=== PATIENT | male | born 1955 | race African-American/Black ===

== ENCOUNTER 2016-05-03 18:05 | Inpatient (IN) | payer BC ==
[~2016-05-03] VITALS: Ht 172.7 cm; Wt 83.5 kg
[~2016-05-03 18:05] MED LIST: A & D OINT1 APPLI1 TOPIC; ACYCLOVIR400 MG ORAL; AMBIEN5 MG ORAL; ATROVENT HFA12.9 GM IH; CATAPRES0.1 MG ORAL; COLACE100 MG ORAL; COUMADIN10 MG ORAL; DAKIN'S473 ML TOPIC; DILAUDID1 MG/1 ML PO; DIPHENHYDR50 MG/1 M1 IJ; EMTRIVA200 MG ORAL; EPOGEN20000 UNI1 SUBQ; EPOGEN20000 UNIT SUBQ; FOSRENOL1000 MG PO; GENTAMICIN80 MG/100 IV; HECTOROL PO; HECTOROL0.5 MCG PO; HYDROMORPH1 MG/50 ML IVP; HYDROMORPHO1 MG/1 M4 IJ; IRON159 MG PO; LORAZEPAM1 MG ORAL; METOPROLOL SUCC25 MG ORAL; MINOXIDIL2.5 MG PO; MIRALAX17 G2 ORAL; NIFEDICAL XL60 MG ORAL; NOVOLOG100 UNITS1; OXYCODONE-ACET1 EAC5 ORAL; PERIDEX15 ML MM; PLAVIX75 MG ORAL; PREMARIN0.625 MG ORAL; RENAGEL800 MG ORAL; RENAL CAPS SOFTG1 MG PO; RENVELA0.8 GM ORAL; STARLIX120 MG ORAL; TOPROL XL25 MG ORAL; TYLENOL650 MG/20. ORAL; VANCOMYCIN1 GM/2502 IVPB; VIRACEPT250 MG ORAL; VIRACEPT625 MG PO; VIREAD300 MG ORAL; VITAMIN D250000 UNI1 ORAL; ZANTAC150 MG ORAL; ZOFRAN 4 MG4 MG/2 ML IV; ZOSYN 3.373.375 GM/1 IVPB; [UNRECOGNIZED DRUG - OTHER] TOPIC
[2016-05-03 18:26] VITALS: BP 182/68
[2016-05-03 20:00] VITALS: BP 156/74
[2016-05-03] MEDS ORDERED: Emtricitabine 200mg tab ORAL SCH (20:45)
[2016-05-03] MEDS ORDERED: Acetaminophen 650mg/20.3ml ORAL PRN (20:45)
[2016-05-03] MEDS ORDERED: LORazepam 1mg tab ORAL PRN (20:45)
[2016-05-03] MEDS ORDERED: Miralax 17gm pkt ORAL PRN (20:45)
[2016-05-03] MEDS: HYDROmorphone 1mg/ml Carpuject IVP PRN (20:56)
[2016-05-03 23:56] VITALS: BP 161/58
[2016-05-04] MEDS: DiphenhydrAMINE 50mg/ml Inj IV SCH ×5 (00:16→23:49)
[2016-05-04] MEDS: HYDROmorphone 1mg/ml Carpuject IVP PRN ×5 (01:06→20:24)
[2016-05-04 04:00] VITALS: BP 142/60
[2016-05-04 08:00] VITALS: BP 173/75
[2016-05-04 08:41] LABS: BASOPHILS % (AUTO) 1.4 % (0.0-2.0); EOSINOPHILS % (AUTO) 9.1 % (0.0-3.0); LYMPHOCYTES % (AUTO) 43.4 % (20.0-45.0); MEAN CORPUSCULAR HEMOGLOBIN 31.2 PG (27.0-31.0); MEAN CORPUSCULAR HGB CONC 31.2 G/DL (32.0-36.0); MEAN CORPUSCULAR VOLUME 100 FL (80-99); MEAN PLATELET VOLUME 9.1 FL (6.5-10.1); MONOCYTES % (AUTO) 18.1 % (1.0-10.0); PLATELET COUNT 182 K/UL (150-450); RED BLOOD COUNT 3.28 M/UL (4.70-6.10); RED CELL DISTRIBUTION WIDTH 17.2 % (11.6-14.8); WHITE BLOOD COUNT 4.9 K/UL (4.8-10.8)
[2016-05-04 08:52] LABS: PROTHROMBIN TIME 10.5 SEC (9.30-11.50)
[2016-05-04 08:58] LABS: ALBUMIN/GLOBULIN RATIO 0.7 (1.0-2.7); CALCIUM 9.7 mg/dL (8.6-10.2); CREATININE 7.2 mg/dL (0.7-1.2); GLOMERULAR FILTRATION RATE 9.5 mL/min (>60); POTASSIUM 5.2 mEQ/L (3.4-4.9); TOTAL PROTEIN 7.6 g/dL (6.6-8.7)
[2016-05-04] MEDS ORDERED: Warfarin Sodium 10mg ORAL SCH (09:00)
[2016-05-04] MEDS: Lanthanum 1000mg tab ORAL SCH ×3 (09:00→17:43)
[2016-05-04] MEDS: Docusate 100mg cap ORAL SCH ×2 (10:08→17:42)
[2016-05-04] MEDS: VIRACEPT ORAL SCH ×2 (10:09→17:43)
[2016-05-04] MEDS: Renvela 2400 mg pkt ORAL SCH ×3 (10:09→12:13)
[2016-05-04] MEDS: Renvela 800mg Pkt ORAL SCH ×3 (10:40→17:42)
[2016-05-04 12:00] VITALS: BP 125/67
[2016-05-04] MEDS: Vitamin A&D Oint 2oz Tube TOPIC SCH ×2 (12:08→20:25)
[2016-05-04] MEDS ORDERED: 1/2 NS 1000ml IV ONE (15:20)
--- NOTE | 2016-05-04 15:52 | Podiatric Progress Note ---
Assessment/Plan Patient Lloyd Grigsby is a 60 year old male who was admitted on May 03, 2016 at 18:30 with Problems: Assessment/Plan A/ 1) Osteomyelitis left foot and right 2nd toe 2) Nonpressure ulcer right 2nd toe to level of bone 3) Nonpressure ulcer left foot (surgical) to level of muscle 4) Severe PVD - s/p intervention bilateral 5) DM 6) ESRD 7) Amputated toes left foot 8) Nonpressure ulcer submet head 5th right foot to subq P/ 1) Cont IV abx per ID 2) Scheduled for right 2nd toe amp Saturday at 2:30pm 3) Wound Nurse consulted for MWF VAC dressing changes to left foot 4) Cont heel protectors 5) Strict glycemic control for optimal wound healing 6) D/W nursing and D/W . will sign consent when she arrives. Subjective Allergies: Coded Allergies: HEPARIN (Verified Allergy, Severe, low platelets, 06/11/14) SULFA (SULFONAMIDE ANTIBIOTICS) (Verified Allergy, Severe, nephro toxic, ) ZOLPIDEM (Verified Allergy, Unknown, 05/03/16) MEROPENEM (Verified Adverse Reaction, Intermediate, 04/01/16) Nausea and vomiting Uncoded Allergies: pork products (Allergy, Severe, rashes, 06/11/14) Subjective Patient is comfortable, in NAD Objective Exam Last 24 Hour Vital Signs Date Time Temp Pulse Resp B/P Pulse Ox O2 Delivery O2 Flow Rate FiO2 05/04/16 12:38 97.2 05/04/16 12:00 96.4 85 18 125/67 96 Nasal Cannula 2.0 05/04/16 09:00 72 173/75 05/04/16 09:00 72 173/75 05/04/16 08:00 97.2 72 20 173/75 100 Nasal Cannula 2.0 05/04/16 04:00 97.8 74 18 142/60 94 Room Air 05/03/16 23:56 97.9 76 18 161/58 95 Room Air 05/03/16 23:02 71 156/74 05/03/16 20:00 98.2 71 23 156/74 99 Room Air 05/03/16 18:28 89 18 180/68 99 Room Air 05/03/16 18:26 98.6 99 18 182/68 100 2.0 05/03/16 18:06 98.6 76 18 182/68 100 2.0 Laboratory Tests Test 05/04/16 05:46 White Blood Count 4.9 K/UL (4.8-10.8) Red Blood Count 3.28 M/UL (4.70-6.10) L Hemoglobin 10.3 G/DL (14.2-18.0) L Hematocrit 32.9 % (42.0-52.0) L Mean Corpuscular Volume 100 FL (80-99) H Mean Corpuscular Hemoglobin 31.2 PG (27.0-31.0) H Mean Corpuscular Hemoglobin Concent 31.2 G/DL (32.0-36.0) L Red Cell Distribution Width 17.2 % (11.6-14.8) H Platelet Count 182 K/UL (150-450) Mean Platelet Volume 9.1 FL (6.5-10.1) Neutrophils (%) (Auto) 28.0 % (45.0-75.0) L Lymphocytes (%) (Auto) 43.4 % (20.0-45.0) Monocytes (%) (Auto) 18.1 % (1.0-10.0) H Eosinophils (%) (Auto) 9.1 % (0.0-3.0) H Basophils (%) (Auto) 1.4 % (0.0-2.0) Prothrombin Time 10.5 SEC (9.30-11.50) Prothromb Time International Ratio 1.0 (0.9-1.1) Activated Partial Thromboplast Time 27 SEC (23-33) Sodium Level 141 mEQ/L (135-145) Potassium Level 5.2 mEQ/L (3.4-4.9) H Chloride Level 97 mEQ/L (98-107) L Carbon Dioxide Level 26 mEQ/L (20-30) Anion Gap 18 (5-15) H Blood Urea Nitrogen 59 mg/dL (7-23) H Creatinine 7.2 mg/dL (0.7-1.2) H Estimat Glomerular Filtration Rate 9.5 mL/min (>60) Glucose Level 61 mg/dL (74-106) L Calcium Level 9.7 mg/dL (8.6-10.2) Total Bilirubin 0.7 mg/dL (0.0-1.2) Aspartate Amino Transf (AST/SGOT) 27 U/L (5-40) Alanine Aminotransferase (ALT/SGPT) 17 U/L (3-41) Alkaline Phosphatase 117 U/L (40-129) Total Protein 7.6 g/dL (6.6-8.7) Albumin 3.3 g/dL (3.5-5.2) L Globulin 4.3 g/dL Albumin/Globulin Ratio 0.7 (1.0-2.7) L Vascular Pulses: 2 dorsalis pedis (L), 2 dorsalis pedis (R), 2 posterior tibial (L), 2 posterior tibial (R) Dermatological Dermatological Narrative Left foot - wound bed granular, no necrosis, no signs of acute bacterial infection. Wound size appears to have decreased from previous admission Right foot Submet 5th - healing, superficial no signs of acute bacterial infection Dorsal 2nd toe - DIPJ nearly exposed, no signs of acute infection. Toe is bulbous Victor Hugo Blackburn DPM May 04, 2016 15:52
--- NOTE | 2016-05-04 15:56 | General Progress Note ---
Assessment/Plan Problem List: (1) ESRD (end stage renal disease) ICD Codes: N18.6 - End stage renal disease SNOMED: 08830574 (2) Sepsis ICD Codes: A41.9 - Sepsis, unspecified organism SNOMED: 49965311 (3) Anemia ICD Codes: D64.9 - Anemia, unspecified SNOMED: 509623936 (4) HIV disease ICD Codes: B20 - Human immunodeficiency virus [HIV] disease SNOMED: 05220412 (5) Pain ICD Codes: R52 - Pain, unspecified SNOMED: 88439303 (6) Vascular disease ICD Codes: I99.9 - Unspecified disorder of circulatory system SNOMED: 36119544 Status: progressing Assessment/Plan per vascular he needs right toe amputation abx per id pvd angiogram done by dr garcia afebrile reviwed chart and labs Subjective ROS Limited/Unobtainable: Yes Allergies: Coded Allergies: HEPARIN (Verified Allergy, Severe, low platelets, 06/11/14) SULFA (SULFONAMIDE ANTIBIOTICS) (Verified Allergy, Severe, nephro toxic, ) ZOLPIDEM (Verified Allergy, Unknown, 05/03/16) MEROPENEM (Verified Adverse Reaction, Intermediate, 04/01/16) Nausea and vomiting Uncoded Allergies: pork products (Allergy, Severe, rashes, 06/11/14) Objective Last 24 Hour Vital Signs Date Time Temp Pulse Resp B/P Pulse Ox O2 Delivery O2 Flow Rate FiO2 05/04/16 12:38 97.2 05/04/16 12:00 96.4 85 18 125/67 96 Nasal Cannula 2.0 05/04/16 09:00 72 173/75 05/04/16 09:00 72 173/75 05/04/16 08:00 97.2 72 20 173/75 100 Nasal Cannula 2.0 05/04/16 04:00 97.8 74 18 142/60 94 Room Air 05/03/16 23:56 97.9 76 18 161/58 95 Room Air 05/03/16 23:02 71 156/74 05/03/16 20:00 98.2 71 23 156/74 99 Room Air 05/03/16 18:28 89 18 180/68 99 Room Air 05/03/16 18:26 98.6 99 18 182/68 100 2.0 05/03/16 18:06 98.6 76 18 182/68 100 2.0 Intake and Output 05/03/16 05/04/16 19:00 07:00 Intake Total 0 ml 450 ml Balance 0 ml 450 ml Intake Oral 0 ml IV Total 450 ml Laboratory Tests 05/04/16 05:46: White Blood Count 4.9, Red Blood Count 3.28L, Hemoglobin 10.3L, Hematocrit 32.9L , Mean Corpuscular Volume 100H, Mean Corpuscular Hemoglobin 31.2H, Mean Corpuscular Hemoglobin Concent 31.2L, Red Cell Distribution Width 17.2H, Platelet Count 182, Mean Platelet Volume 9.1, Neutrophils (%) (Auto) 28.0L, Lymphocytes (%) (Auto) 43.4, Monocytes (%) (Auto) 18.1H, Eosinophils (%) (Auto) 9.1H, Basophils (%) (Auto) 1.4, Prothrombin Time 10.5, Prothromb Time International Ratio 1.0, Activated Partial Thromboplast Time 27, Sodium Level 141, Potassium Level 5.2H, Chloride Level 97L, Carbon Dioxide Level 26, Anion Gap 18H, Blood Urea Nitrogen 59H, Creatinine 7.2H, Estimat Glomerular Filtration Rate 9.5, Glucose Level 61L, Calcium Level 9.7, Total Bilirubin 0.7, Aspartate Amino Transf (AST/SGOT) 27, Alanine Aminotransferase (ALT/SGPT) 17, Alkaline Phosphatase 117, Total Protein 7.6, Albumin 3.3L, Globulin 4.3, Albumin /Globulin Ratio 0.7L Height (Feet): 5 Height (Inches): 8.00 Weight (Pounds): 184 Respiratory/Chest: lungs clear Abdomen: soft Sergei Hernández MD May 04, 2016 15:55
[2016-05-04 16:00] VITALS: BP 188/87
--- NOTE | 2016-05-04 16:23 | General Progress Note ---
Progress Note Progress Note [id number] full note dictated LB SON May 04, 2016 16:23
--- NOTE | 2016-05-04 19:58 | Wound Care Consultation ---
Wound Assessment Wound Assessment #1: Wound Present on Admission: Yes New Wound: No Status Change of Wound: No Wound Location Body Site Modif: mid Wound Location Body Site: sacral Wound Type: pressure ulcer Alexandra Test: Does not Alexandra Pressure Ulcer Stage: II Wound Thickness: Full Thickness Wound Length: 1.0 Wound Width: 1.0 Wound Depth: 0.1 Percent of Wound Theodore/Red: 100 Wound Drainage Amount: None Wound Drainage Odor: None/Absent Tissue Surrounding Wound: Macerated Wound General Appearance: Reddened, Well Approximated Wound Assessment #2: Wound Number: #2 Wound Present on Admission: Yes New Wound: No Status Change of Wound: No Wound Location Body Site Modif: left, lateral Wound Location Body Site: foot Wound Type: vascular issue w/vascular changes Alexandra Test: Does not Alexandra Wound Thickness: Full Thickness Wound Length: 7.5 Wound Width: 4.0 Wound Depth: 0.3 Percent of Wound Theodore/Red: 100 Wound Drainage Amount: Moderate Wound Drainage Odor: None/Absent Tissue Surrounding Wound: Macerated Wound General Appearance: Reddened, Well Approximated, Draining Wound Assessment #3: Wound Number: #3 Wound Present on Admission: Yes New Wound: No Status Change of Wound: No Wound Location Body Site Modif: right, anterior Wound Location Body Site: toe - 2nd Wound Type: vascular issue w/vascular changes Alexandra Test: Does not Alexandra Wound Thickness: Full Thickness Wound Length: 1.5 Wound Width: 1.0 Wound Depth: utd Percent of Wound Black/Brown: 100 Wound Drainage Amount: None Wound Drainage Odor: None/Absent Tissue Surrounding Wound: Indurated Wound General Appearance: Asymptomatic, Blackened Wound Assessment #4: Wound Number: #4 Wound Present on Admission: Yes New Wound: No Status Change of Wound: No Wound Location Body Site Modif: right, lateral Wound Location Body Site: metatarsal head - 5th Wound Type: vascular issue w/vascular changes Alexandra Test: Does not Alexandra Wound Thickness: Full Thickness Wound Length: 2.0 Wound Width: 1.5 Wound Depth: utd Percent of Wound Black/Brown: 100 Wound Drainage Amount: None Wound Drainage Odor: None/Absent Tissue Surrounding Wound: Intact Wound General Appearance: Asymptomatic, Well Approximated Wound Assessment #5: Wound Number: #5 Wound Present on Admission: Yes New Wound: No Status Change of Wound: No Wound Location Body Site Modif: right, lateral Wound Location Body Site: toe - 5th Wound Type: vascular issue w/vascular changes Alexandra Test: Does not Alexandra Wound Thickness: Full Thickness Wound Length: 1.5 Wound Width: 1.5 Wound Depth: utd Percent of Wound Black/Brown: 100 Wound Drainage Amount: None Wound Drainage Odor: None/Absent Tissue Surrounding Wound: Intact Wound General Appearance: Asymptomatic, Well Approximated Wound Comment #1 Sacral stage II pressure ulcer #2 S/p amputation of left foot with wound vac #3 Right 2nd toe DTI with dry scab #4 Right 5th metatarsal head DTI #5 Right lateral 5th toe DTI with dry scab Pt with Dx of sever PVD, DM, ESRD. H/O amputation of left toes and lateral foot. Recommendation -Local wound care as ordered by Dr Blackburn -Wound vac drg harris by wound care nurse every MWF as ordered by Dr Blackburn -Sacral stage 2 cleanse with saline, pat dry, apply Triad cream and cover with dry drg daily and PRN soiled/dislodged -Keep clean and dry -Turn and reposition -optimize nutrition -Offload both heels -Assess and f/u accordingly for any changes SCOOBY UP RN May 04, 2016 19:58
[2016-05-04 20:00] VITALS: BP 141/75
[2016-05-05] VITALS: BP 148/78
[2016-05-05] MEDS: HYDROmorphone 1mg/ml Carpuject IVP PRN ×4 (00:33→18:48)
--- NOTE | 2016-05-05 03:57 | Consultation ---
DATE OF CONSULTATION: 05/04/2016 NEPHROLOGY CONSULTATION CONSULTING PHYSICIAN: Janis Olivo M.D. REFERRING PHYSICIAN: Sergei Hernández M.D. REASON FOR CONSULTATION: End-stage renal disease renal, need for dialysis. HISTORY OF PRESENT ILLNESS: The patient is an unfortunate 60-year-old male with past medical history significant for history of human immunodeficiency virus, end-stage renal disease, anemia of chronic kidney disease, renal osteodystrophy, history of peripheral vascular disease, history of multiple admissions for revascularization, and also left lower extremity wound. He apparently was transferred to [facility] for revascularization of the left lower extremity, which was done successfully. Consequently, the patient was transferred to [facility] for continuation of intravenous antibiotics, amputation, wound debridement, incision and drainage, required dialysis, and need for care for his end-stage renal disease. I was called for management of renal disease and electrolyte imbalance. PAST MEDICAL HISTORY: Includin. Diabetes. 2. Hypertension. 3. HIV. 4. End-stage renal disease. 5. Anemia of chronic kidney disease. 6. Renal osteodystrophy. 7. Peripheral vascular disease. 8. Left wound and partial amputation. 9. Hemorrhagic telangiectasia. 10. History of revascularization. 11. History of AV fistula placement. MEDICATIONS: Reviewed. ALLERGIES: He is allergic to heparin, sulfa, and pork. SOCIAL HISTORY: He lives at home with , but apparently the patient has had multiple hospital admissions in the last couple of months for the left lower extremity osteomyelitis. REVIEW OF SYSTEMS: General: He is complaining of generalized weakness. Denied any fever, chills, or night sweats. HEAD AND NECK: Denies any dysphagia, odynophagia, blurry vision, headache, or neck stiffness. PULMONARY: No shortness of breath. No cough or sputum at this time. CARDIOVASCULAR: Denies any chest pain or palpitations. GASTROINTESTINAL: Denies any nausea or vomiting. GENITOURINARY: Denies any dysuria, frequency, or hematuria. MUSCULOSKELETAL: He complained of generalized weakness. Otherwise negative. PHYSICAL EXAM: VITAL SIGNS: Temperature of 97 degrees, blood pressure 161/58, pulse rate of 76, and respiratory rate of 18. HEAD AND NECK: No JVP. No LAD. No thyromegaly. Extraocular movement intact. Pupils are reactive to light and accommodation. LUNGS: Decreased breathing sound on the both sides. CARDIAC: Regular rate and rhythm. S1 and S2. No murmur. No rub. ABDOMEN: Soft, nontender, and nondistended. EXTREMITIES: Has left lower extremity ulceration, which at this time is on the right toe, which is under dressing. ASSESSMENT: 1. Non-pressure ulcer of the right second toe. 2. Hypertension. 3. End-stage renal disease. 4. Anemia of chronic kidney disease. 5. Renal osteodystrophy. 6. Diabetes. 7. Dyslipidemia. PLAN: 1. Plan for the patient to continue the dialysis based on the schedule and we will start the patient on Epogen for anemia of chronic kidney disease. 2. Check the calcium, phosphorous, and PTH for evaluation of renal osteodystrophy. 3. IV antibiotic. 4. Follow up with Podiatry for possible wound debridement and amputation. 5. Monitoring electrolytes closely. Again, I would like to thank Dr. Louis Barahona for allowing me to participate in the care of this patient. Janis Olivo M.D. DR: JAG JOB#: [id number] CC:
[2016-05-05 04:00] VITALS: BP 154/65
[2016-05-05] MEDS: DiphenhydrAMINE 50mg/ml Inj IV SCH ×3 (06:00→18:00)
[2016-05-05] MEDS: VIRACEPT ORAL SCH ×2 (08:10→18:32)
[2016-05-05] MEDS: Renvela 2400 mg pkt ORAL SCH ×3 (08:11→18:30)
[2016-05-05] MEDS: Renvela 800mg Pkt ORAL SCH ×3 (08:11→18:30)
[2016-05-05] MEDS: Lanthanum 1000mg tab ORAL SCH ×3 (08:11→18:31)
[2016-05-05] MEDS: Docusate 100mg cap ORAL SCH ×2 (08:11→18:30)
[2016-05-05] MEDS: Vitamin A&D Oint 2oz Tube TOPIC SCH ×2 (08:12→22:17)
[2016-05-05 08:27] VITALS: BP 144/57
[2016-05-05 11:15] VITALS: BP 137/73
--- NOTE | 2016-05-05 12:25 | General Progress Note ---
Assessment/Plan Problem List: (1) ESRD (end stage renal disease) ICD Codes: N18.6 - End stage renal disease SNOMED: 83411248 (2) Sepsis ICD Codes: A41.9 - Sepsis, unspecified organism SNOMED: 37234475 (3) Anemia ICD Codes: D64.9 - Anemia, unspecified SNOMED: 972821059 (4) HIV disease ICD Codes: B20 - Human immunodeficiency virus [HIV] disease SNOMED: 92263020 (5) Pain ICD Codes: R52 - Pain, unspecified SNOMED: 03132290 (6) Vascular disease ICD Codes: I99.9 - Unspecified disorder of circulatory system SNOMED: 24143837 Assessment/Plan toe amputation per certified phlebotomy technician afebrile vitals stable no acute events pvd no fever Subjective ROS Limited/Unobtainable: Yes Constitutional: Reports: no symptoms Allergies: Coded Allergies: HEPARIN (Verified Allergy, Severe, low platelets, 06/11/14) SULFA (SULFONAMIDE ANTIBIOTICS) (Verified Allergy, Severe, nephro toxic, ) ZOLPIDEM (Verified Allergy, Unknown, 05/03/16) MEROPENEM (Verified Adverse Reaction, Intermediate, 04/01/16) Nausea and vomiting Uncoded Allergies: pork products (Allergy, Severe, rashes, 06/11/14) Objective Last 24 Hour Vital Signs Date Time Temp Pulse Resp B/P Pulse Ox O2 Delivery O2 Flow Rate FiO2 05/05/16 11:15 Nasal Cannula 2.0 05/05/16 11:15 98.0 79 18 137/73 96 Nasal Cannula 2.0 05/05/16 08:27 98.2 72 20 144/57 97 Nasal Cannula 2.0 05/05/16 08:10 Nasal Cannula 2.0 05/05/16 04:00 97.3 69 18 154/65 94 Room Air 05/05/16 00:00 98.2 82 18 148/78 98 Room Air 05/04/16 20:00 98.4 74 19 141/75 96 Room Air 05/04/16 16:00 98.8 78 19 188/87 98 Room Air 05/04/16 12:38 97.2 Intake and Output 05/04/16 05/05/16 19:00 07:00 Intake Total 500 ml 1310 ml Balance 500 ml 1310 ml Intake Oral 760 ml IV Total 500 ml 550 ml Height (Feet): 5 Height (Inches): 8.00 Weight (Pounds): 184 EENT: PERRL/EOMI Respiratory/Chest: lungs clear Abdomen: soft Sergei Hernández MD May 05, 2016 12:24
--- NOTE | 2016-05-05 13:01 | Infectious Diseases Prog Note ---
Assessment/Plan Assessment/Plan HPI - patient well known to me, asked to f/u for abx mgt. Patient transferred from outside facility in which he had left leg revascularization and line access. ASSESSMENT AND PLAN: 1. esbl e.coli/likely polymicrobial left foot wound infection with osteomyelitis and right foot 2nd toe osteo/wound - s/p debridement of left foot , s/p left leg revascularization - zosyn and vancomycin for another 16 day (total 6 week abx course) - watch labs and sed rate - wound culture of left foot and right food 2nd toe at [facility] were negative - may need further debridement and amputation per podiatry and surgery - patient with line access - ? mid line vs picc line, per nursing it is a picc line 2. Wound care per podiatry and surgery 3. End-stage renal disease on hemodialysis, treatment per Renal. 4. Diabetes. 5. Hypertension. 6. Blood sugar and blood pressure control per primary. 7. Human immunodeficiency virus. 8. Antiviral therapy. 9. Human immunodeficiency virus therapy per Dr. Chinchilla as an outpatient - f/u with Dr. chinchilla 10. Anemia. 11. Peripheral vascular disease. 12. Gastrointestinal disease. 13. Fistula. 14. Neurologic disease, VAD. 15. Transient ischemic attack. 16. Weakness. 17. Seizures. 18. Left ventricular hypertrophy. 19. Atrial septal defect. 20. Coagulopathy, hematological disorder. 21. Past medical history as noted. 22. Allergies to sulfa, pork and heparin, [facility] 23. Case was discussed with the patient 24. wound care per protocol 25. Case was discussed with RN. 26. Notes and records were reviewed. 27. MAR was noted. 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 Subjective Constitutional: Denies: fever HEENT: Denies: congestion Respiratory: Denies: shortness of breath Cardiovascular: Denies: chest pain Gastrointestinal/Abdominal: Denies: diarrhea, nausea, vomiting Genitourinary: Reports: other - no agarwal Neurologic: Denies: headache Psychiatric: Denies: depression Skin: Denies: rash Hematologic: Denies: bleeding Allergies: Coded Allergies: HEPARIN (Verified Allergy, Severe, low platelets, 06/11/14) SULFA (SULFONAMIDE ANTIBIOTICS) (Verified Allergy, Severe, nephro toxic, ) ZOLPIDEM (Verified Allergy, Unknown, 05/03/16) MEROPENEM (Verified Adverse Reaction, Intermediate, 04/01/16) Nausea and vomiting Uncoded Allergies: pork products (Allergy, Severe, rashes, 06/11/14) Objective Vital Signs Last 24 Hour Vital Signs Date Time Temp Pulse Resp B/P Pulse Ox O2 Delivery O2 Flow Rate FiO2 05/05/16 11:15 Nasal Cannula 2.0 05/05/16 11:15 98.0 79 18 137/73 96 Nasal Cannula 2.0 05/05/16 08:27 98.2 72 20 144/57 97 Nasal Cannula 2.0 05/05/16 08:10 Nasal Cannula 2.0 05/05/16 04:00 97.3 69 18 154/65 94 Room Air 05/05/16 00:00 98.2 82 18 148/78 98 Room Air 05/04/16 20:00 98.4 74 19 141/75 96 Room Air 05/04/16 16:00 98.8 78 19 188/87 98 Room Air Height (Feet): 5 Height (Inches): 8.00 Weight (Pounds): 184 General Appearance: no acute distress HEENT: normocephalic, atraumatic, anicteric Respiratory/Chest: lungs clear, normal breath sounds, no respiratory distress, no accessory muscle use Cardiovascular: normal rate, regular rhythm, regularly irregular, no gallop/ murmur Abdomen: normal bowel sounds, soft, non tender, no organomegaly, non distended Genitourinary: other - no agarwal Extremities: other - left foot wound noted, looks clean, + wound vac now, right foot second toe ulcer noted Skin: no rash 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 Complete 05/04/16 00:30 Rectum VRE Culture - Final Enterococcus Faecium - Vre Complete Labs Test 05/04/16 05:46 White Blood Count 4.9 K/UL (4.8-10.8) Red Blood Count 3.28 M/UL (4.70-6.10) Hemoglobin 10.3 G/DL (14.2-18.0) Hematocrit 32.9 % (42.0-52.0) Mean Corpuscular Volume 100 FL (80-99) Mean Corpuscular Hemoglobin 31.2 PG (27.0-31.0) Mean Corpuscular Hemoglobin Concent 31.2 G/DL (32.0-36.0) Red Cell Distribution Width 17.2 % (11.6-14.8) Platelet Count 182 K/UL (150-450) Mean Platelet Volume 9.1 FL (6.5-10.1) Neutrophils (%) (Auto) 28.0 % (45.0-75.0) Lymphocytes (%) (Auto) 43.4 % (20.0-45.0) Monocytes (%) (Auto) 18.1 % (1.0-10.0) Eosinophils (%) (Auto) 9.1 % (0.0-3.0) Basophils (%) (Auto) 1.4 % (0.0-2.0) Prothrombin Time 10.5 SEC (9.30-11.50) Prothromb Time International Ratio 1.0 (0.9-1.1) Activated Partial Thromboplast Time 27 SEC (23-33) Sodium Level 141 mEQ/L (135-145) Potassium Level 5.2 mEQ/L (3.4-4.9) Chloride Level 97 mEQ/L (98-107) Carbon Dioxide Level 26 mEQ/L (20-30) Anion Gap 18 (5-15) Blood Urea Nitrogen 59 mg/dL (7-23) Creatinine 7.2 mg/dL (0.7-1.2) Estimat Glomerular Filtration Rate 9.5 mL/min (>60) Glucose Level 61 mg/dL (74-106) Calcium Level 9.7 mg/dL (8.6-10.2) Total Bilirubin 0.7 mg/dL (0.0-1.2) Aspartate Amino Transf (AST/SGOT) 27 U/L (5-40) Alanine Aminotransferase (ALT/SGPT) 17 U/L (3-41) Alkaline Phosphatase 117 U/L (40-129) Total Protein 7.6 g/dL (6.6-8.7) Albumin 3.3 g/dL (3.5-5.2) Globulin 4.3 g/dL Albumin/Globulin Ratio 0.7 (1.0-2.7) Current Medications Medications (Trade) Dose Ordered Sig/Zohaib Route PRN Reason Start Time Stop Time Status Last Admin Dose Admin Acetaminophen (Tylenol) 650 mg Q4HR PRN ORAL Prn Headache/Temp > 101 05/03/16 20:45 06/02/16 20:44 Clonidine HCl (Catapres) 0.1 mg EVERY 8 HOURS PRN ORAL SBP>160 05/03/16 20:45 06/02/16 20:44 Clopidogrel Bisulfate (Plavix) 75 mg DAILY ORAL 05/04/16 09:00 06/03/16 08:59 05/05/16 08:10 Diphenhydramine HCl (Benadryl) 50 mg EVERY 6 HOURS IV 05/04/16 00:00 06/03/16 00:00 05/04/16 12:08 Docusate Sodium (Colace) 100 mg TWICE A DAY ORAL 05/04/16 09:00 06/03/16 08:59 05/05/16 08:11 Hydromorphone HCl (Dilaudid) 1 mg EVERY 4 HOURS PRN IVP Severe Pain (Pain Scale 7-10) 05/03/16 20:45 05/10/16 20:44 05/05/16 12:13 Lanthanum Carbonate (Fosrenol) 1,500 mg TID ORAL 05/04/16 09:00 06/03/16 08:59 05/04/16 17:43 Lorazepam (Ativan) 1 mg EVERY 6 HOURS PRN ORAL For Anxiety 05/03/16 20:45 05/10/16 20:44 Metoprolol Succinate (Toprol XL) 25 mg DAILY ORAL 05/03/16 21:00 06/02/16 20:59 05/03/16 23:02 Nateglinide (Starlix) 120 mg TIAC ORAL 05/04/16 16:30 06/03/16 16:29 05/05/16 12:14 Nifedipine (Procardia XL) 60 mg DAILY ORAL 05/04/16 09:00 06/03/16 08:59 Ondansetron HCl (Zofran) 4 mg Q6H PRN IV Nausea & Vomiting 05/03/16 20:45 06/02/16 20:44 Oxycodone/ Acetaminophen (Percocet 10/325) 1 tab Q4H PRN ORAL Breakthrough Pain 05/03/16 20:45 05/10/16 20:44 05/05/16 03:47 Patient Own Medication (Patient's Own Med) 1 ea Sa@1700 ORAL 05/05/16 17:00 06/04/16 16:59 Patient Own Medication (Patient's Own Med) 1 ea WeSa@1700 ORAL 05/05/16 17:00 06/04/16 16:59 Patient Own Medication 2 ea 2 ea BID ORAL 05/04/16 09:00 06/03/16 08:59 05/05/16 08:10 Polyethylene Glycol (Miralax) 17 gm DAILY PRN ORAL Constipation 05/03/16 20:45 06/02/16 20:44 Sevelamer Carbonate (Renvela) 800 mg TID ORAL 05/04/16 09:00 06/03/16 08:59 05/05/16 12:14 Sevelamer Carbonate (Renvela) 2,400 mg THREE TIMES A DAY ORAL 05/04/16 09:00 06/03/16 08:59 05/05/16 12:14 Sodium Chloride (0.45% NS 1000ml) 1,000 ml @ 50 mls/hr Q20H IV 05/03/16 22:00 06/02/16 21:59 05/04/16 17:42 Vitamin A/Vitamin D (A & D Oint) 1 applic Q12HR TOPIC 05/04/16 12:00 06/03/16 11:59 05/05/16 08:12 INOCENCIA DOS SANTOS May 05, 2016 13:01
[2016-05-05 16:00] VITALS: BP 136/69
[2016-05-05] MEDS ORDERED: Vancomycin 1.5 GM/D5W 300 ML IVPB ONE ×2 (16:00)
--- NOTE | 2016-05-05 16:24 | Nephrology Progress Note ---
Assessment/Plan Assessment 1.ESRD 2.WEN 3.PVD 4.HTN 5.anemia of ckd 6.HIV Plan PLAN to continue iv antibiotic dialysis today continue epogen continue renagel Subjective Constitutional: Reports: no symptoms HEENT: Reports: no symptoms Genitourinary: Reports: no symptoms Neurologic/Psychiatric: Reports: no symptoms Objective Objective Last 24 Hour Vital Signs Date Time Temp Pulse Resp B/P Pulse Ox O2 Delivery O2 Flow Rate FiO2 05/05/16 12:43 98.0 05/05/16 11:15 Nasal Cannula 2.0 05/05/16 11:15 98.0 79 18 137/73 96 Nasal Cannula 2.0 05/05/16 08:27 98.2 72 20 144/57 97 Nasal Cannula 2.0 05/05/16 08:10 Nasal Cannula 2.0 05/05/16 04:00 97.3 69 18 154/65 94 Room Air 05/05/16 00:00 98.2 82 18 148/78 98 Room Air 05/04/16 20:00 98.4 74 19 141/75 96 Room Air Intake and Output 05/04/16 05/05/16 19:00 07:00 Intake Total 500 ml 1360 ml Balance 500 ml 1360 ml Intake Oral 760 ml IV Total 500 ml 600 ml Height (Feet): 5 Height (Inches): 8.00 Weight (Pounds): 184 Objective HEAD AND NECK: No JVP. No LAD. No thyromegaly. Extraocular movement intact. Pupils are reactive to light and accommodation. LUNGS: Decreased breathing sound on the both sides. CARDIAC: Regular rate and rhythm. S1 and S2. No murmur. No rub. ABDOMEN: Soft, nontender, and nondistended. EXTREMITIES: Has left lower extremity ulceration, which at this time is on the right toe, which is under dressing. LB SON May 05, 2016 16:24
[2016-05-05] MEDS: EMTRICITABINE 200 MG ORAL SCH (16:44)
[2016-05-05] MEDS ORDERED: 1/2 NS 1000ml IV ONE (17:50)
[2016-05-05] MEDS ORDERED: Tubing IV Secondary IV ONE (17:50)
[2016-05-05 20:04] VITALS: BP 134/72
--- NOTE | 2016-05-05 20:45 | Cardiology Progress Note ---
Assessment/Plan Assessment/Plan The patient is seen and examined. Full consult note is dictated. Objective Last 24 Hour Vital Signs Date Time Temp Pulse Resp B/P Pulse Ox O2 Delivery O2 Flow Rate FiO2 05/05/16 20:04 98.1 82 20 134/72 98 Nasal Cannula 2.0 05/05/16 16:00 98.2 78 20 136/69 97 Nasal Cannula 2.0 05/05/16 12:43 98.0 05/05/16 11:15 Nasal Cannula 2.0 05/05/16 11:15 98.0 79 18 137/73 96 Nasal Cannula 2.0 05/05/16 08:27 98.2 72 20 144/57 97 Nasal Cannula 2.0 05/05/16 08:10 Nasal Cannula 2.0 05/05/16 04:00 97.3 69 18 154/65 94 Room Air 05/05/16 00:00 98.2 82 18 148/78 98 Room Air Intake and Output 05/04/16 05/05/16 19:00 07:00 Intake Total 500 ml 1360 ml Balance 500 ml 1360 ml Intake Oral 760 ml IV Total 500 ml 600 ml Microbiology Date/Time Source Procedure Growth Status 05/04/16 00:30 Nasal Nares MRSA Culture - Final NO METHICILLIN RESISTANT STAPH AUREUS... Complete 05/04/16 00:30 Rectum VRE Culture - Final Enterococcus Faecium - Vre Complete CLIFTON ISLAS May 05, 2016 20:45
[2016-05-06] VITALS: BP 138/47
[2016-05-06] MEDS: DiphenhydrAMINE 50mg/ml Inj IV SCH ×4 (00:15→18:00)
[2016-05-06] MEDS: HYDROmorphone 1mg/ml Carpuject IVP PRN ×6 (00:16→22:27)
--- NOTE | 2016-05-06 01:16 | Emergency Room Report ---
History of Present Illness General Chief Complaint: General Complaint Source: Patient Present Illness Allergies: Coded Allergies: HEPARIN (Verified Allergy, Severe, low platelets, 06/11/14) SULFA (SULFONAMIDE ANTIBIOTICS) (Verified Allergy, Severe, nephro toxic, ) ZOLPIDEM (Verified Allergy, Unknown, 05/03/16) MEROPENEM (Verified Adverse Reaction, Intermediate, 04/01/16) Nausea and vomiting Uncoded Allergies: pork products (Allergy, Severe, rashes, 06/11/14) Nursing Documentation-PMH Hx Cardiac Problems: Yes - left ventricular hypertrophy, ASD repaired with implant Hx Hypertension: Yes Hx Diabetes: Yes Hx Cancer: No Hx Gastrointestinal Problems: Yes Hx Dialysis: Yes - 5x a week, BRAD fistula Hx Neurological Problems: Yes - [facility] Hx Transient Ischemic Attacks: Yes Hx Seizures: Yes Hx Weakness: Yes - right side Physical Exam Vital Signs Date Time Temp Pulse Resp B/P Pulse Ox O2 Delivery O2 Flow Rate FiO2 05/03/16 18:06 98.6 76 18 182/68 100 2.0 05/03/16 18:28 Room Air Medical Decision Making Diagnostic Impression: Primary Impression: PVD ER Course Patient brought in by ambulance to be a direct admission to the floor. PMD Dr Paige. Registration and told me that patient could not be admitted directly and had to come to the emergency room. Patient was placed in a bed. before I could come to evaluate the patient, nursing supervisor telephone clerks called stating that she did have a bed for the patient and patient went upstairs Last Vital Signs Date Time Temp Pulse Resp B/P Pulse Ox O2 Delivery O2 Flow Rate FiO2 05/05/16 20:04 98.1 82 20 134/72 98 Nasal Cannula 2.0 Status: improved Disposition: ADMITTED INPATIENT Condition: Serious Referrals: SNEHA PAIGE (PCP) DONNA PEARCE M.D. May 06, 2016 01:15
--- NOTE | 2016-05-06 03:58 | Consultation ---
DATE OF CONSULTATION: 05/05/2016 CARDIOLOGY CONSULTATION CONSULTING PHYSICIAN: Saturnino Reed M.D. REFERRING PHYSICIAN: Sergei Hernández M.D. ADDITIONAL REFERRING PHYSICIAN: Louis Barahona D.O. REASON FOR CONSULTATION: Management of aortic regurgitation in the patient with end-stage renal disease and peripheral artery disease. HISTORY OF PRESENT ILLNESS: The patient is a very unfortunate 60-year-old gentleman known to my practice, who presents to the hospital with peripheral artery disease, possible revascularization, wound debridement, and evaluation for amputation by Dr. Dang. The patient is seen in Cardiology consultation as he has a severe aortic regurgitation due to aortic valve leaflet perforation most likely due to prior infective endocarditis. The patient is also suffering from peripheral arterial disease, status post left transmetatarsal amputation as well as history of revascularization of the right lower extremity arterial system. He was recently discharged from [facility] [place]. At this time, the patient denies any chest pain or shortness of breath. PAST MEDICAL HISTORY: Diabetes mellitus, hypertension, HIV disease, end-stage renal disease, anemia of chronic kidney disease, renal osteodystrophy, peripheral vascular disease, status post left transmetatarsal amputation, status post revascularization of right lower extremity, history of leg ulcer/wound, history of AV fistula placement, and history of severe aortic regurgitation likely due to infective endocarditis and perforated aortic valve leaflets. MEDICATIONS: Acetaminophen 650 mg q.4 hours p.r.n. temperature above 101 degrees and headache, acyclovir 800 mg p.o. daily, Polysporin powder one topical daily, Peridex 15 mL mouthwash, clonidine 0.1 mg every eight hours p.r.n. for systolic blood pressure above 160, Plavix 75 mg p.o. daily, Benadryl 50 mg IJ every six hours, Colace 100 mg p.o. twice daily, vitamin D, doxercalciferol 2.5 mcg p.o. daily, Emtriva 200 mg p.o. every Saturday and Saturday, Epogen 20,000 units subcutaneous every Saturday, Saturday and Saturday; vitamin D 50,000 units q. weekly, Premarin 0.625 mg daily, ferrous sulfate 159 mg p.o. daily, renal caps softgel 1 mg p.o. daily, gentamicin IV piggyback 80 mg IV, and Dilaudid 1 mg p.o. daily, hydromorphone 1 mg IJ q.4 hours, insulin aspart, Atrovent inhaler twice daily, Fosrenol 1500 mg p.o. q.i.d., lorazepam 1 mg q.6 hours p.r.n. anxiety, Toprol-XL 25 mg p.o. daily, minoxidil 2.5 mg p.o. q.12 hours, Starlix 120 mg q.i.d., Versed 2 mg p.o. t.i.d., Procardia 60 mg p.o. daily, Zofran 4 mg IV q.6 hours p.r.n. nausea and vomiting, oxycodone/acetaminophen 110/325 mg one tablet q.4 hours p.r.n. breakthrough pain, Zosyn 2.25 mg IV piggyback q.8 hours, MiraLax 17 g daily p.r.n. constipation, Zantac 150 mg p.o. daily, Renvela 3200 mg 3 times daily, Viread 300 mg p.o. every Saturday, vancomycin, vitamin A and D ointment, warfarin 10 mg p.o. daily, and Ambien 5 mg p.o. at bedtime p.r.n. insomnia. ALLERGIES: To heparin, sulfa, and pork. SOCIAL HISTORY: He lives at home with , but apparently, the patient has had multiple hospital admissions in the past few months. REVIEW OF SYSTEMS: A 12-system review was done essentially negative except what mentioned in the history of present illness. Currently, the patient denies any chest pain, shortness of breath, PND, orthopnea, or leg swelling. PHYSICAL EXAMINATION: VITAL SIGNS: Blood pressure 161/58, pulse of 76, respirations of 18, and temperature 97.0 degrees Fahrenheit. GENERAL: The patient is a very pleasant 60-year-old gentleman, in no apparent respiratory distress, alert and oriented . HEENT: Atraumatic and normocephalic. Anicteric. Pupils are equal, round, and reactive to light and accommodation. Extraocular muscles intact. NECK: JVP is less than 5 cm. No carotid bruit. Carotid upstrokes 2+ bilaterally. CVS: Normal S1 and S2. Regular rate and rhythm. There is a 3/6 mid diastolic murmur at left sternal border. PMI is at fourth intercostal space in the midclavicular line. LUNGS: Diminished breath sounds in both bases. ABDOMEN: Soft, nontender, and nondistended. No hepatosplenomegaly. Positive bowel sounds. EXTREMITIES: Left transmetatarsal amputation. Right heel wound in the dressing. LABORATORY FINDINGS: WBC is 4.9, hemoglobin 10.3, hematocrit 32.9, and platelet count is 182,000. Sodium 141, potassium 5.2, chloride 97, bicarbonate of 26, BUN of 59, creatinine of 7.2, and glucose is 61. Calcium is 9.7. INR is 1.0. A 2D echocardiography from 03/30/2016 shows normal left ventricular ejection fraction at 55% to 60%, moderate LVH, mild left atrial enlargement, mild aortic stenosis, severe aortic regurgitation, moderate mitral regurgitation, and grade 1 LV diastolic dysfunction. ASSESSMENT AND PLAN: The patient is a very unfortunate 60-year-old gentleman seen in Cardiology consultation at the request of Dr. Hernández. 1. Severe aortic regurgitation. The patient is asymptomatic. The aortic regurgitation is clinically well tolerated. We will continue with preload reduction with hemodialysis and afterload reduction with calcium channel tyler, minoxidil. A beta-tyler may not be a good choice for this patient with severe aortic regurgitation. Although, he is asymptomatic. We will continue to observe the patient's heart rate. 2. Diabetes mellitus. 3. History of hypertension. Currently on calcium channel blockers and beta-tyler as well as clonidine and minoxidil. 4. History of peripheral arterial disease, status post left transmetatarsal amputation. The patient is under care of Dr. Dang. The patient will be followed by Dr. Dang in this hospitalization. I would like to thank, Dr. Hernández and Dr. Barahona, for courtesy of this consultation. Saturnino Reed M.D. DR: NASIM JOB#: [id number] CC:
[2016-05-06 04:00] VITALS: BP 143/49
[2016-05-06 08:00] VITALS: BP 158/46
[2016-05-06] MEDS: Lanthanum 1000mg tab ORAL SCH ×3 (09:00→18:00)
[2016-05-06] MEDS: Vitamin A&D Oint 2oz Tube TOPIC SCH ×2 (09:00→22:28)
[2016-05-06] MEDS: Renvela 800mg Pkt ORAL SCH ×3 (09:50→17:59)
[2016-05-06] MEDS: Renvela 2400 mg pkt ORAL SCH ×3 (09:50→17:59)
[2016-05-06] MEDS: VIRACEPT ORAL SCH ×2 (09:51→17:59)
[2016-05-06] MEDS: Docusate 100mg cap ORAL SCH ×2 (09:52→17:59)
--- NOTE | 2016-05-06 10:23 | General Progress Note ---
Assessment/Plan Problem List: (1) Shortness of breath ICD Codes: R06.02 - Shortness of breath SNOMED: 142650647 (2) Osteomyelitis ICD Codes: M86.9 - Osteomyelitis, unspecified SNOMED: 45131610 (3) Diabetes mellitus out of control ICD Codes: E11.65 - Type 2 diabetes mellitus with hyperglycemia SNOMED: 605226391 (4) Encounter for management of vacuum-assisted closure (VAC) of wound SNOMED: 454770134 (5) Ativan use disorder, mild ICD Codes: F13.10 - Sedative, hypnotic or anxiolytic abuse, uncomplicated SNOMED: 617814971 (6) Anemia ICD Codes: D64.9 - Anemia, unspecified SNOMED: 938404702 (7) Vascular disease ICD Codes: I99.9 - Unspecified disorder of circulatory system SNOMED: 54803210 (8) Sepsis ICD Codes: A41.9 - Sepsis, unspecified organism SNOMED: 59847008 (9) ESRD (end stage renal disease) ICD Codes: N18.6 - End stage renal disease SNOMED: 77999440 (10) HIV disease ICD Codes: B20 - Human immunodeficiency virus [HIV] disease SNOMED: 08400524 (11) Pain ICD Codes: R52 - Pain, unspecified SNOMED: 20665224 Status: stable, progressing, tolerating diet Assessment/Plan ot pt diet wound care abx per id cbc bmp in am Subjective Constitutional: Reports: weakness Allergies: Coded Allergies: HEPARIN (Verified Allergy, Severe, low platelets, 06/11/14) SULFA (SULFONAMIDE ANTIBIOTICS) (Verified Allergy, Severe, nephro toxic, ) ZOLPIDEM (Verified Allergy, Unknown, 05/03/16) MEROPENEM (Verified Adverse Reaction, Intermediate, 04/01/16) Nausea and vomiting Uncoded Allergies: pork products (Allergy, Severe, rashes, 06/11/14) All Systems: reviewed and negative except above Subjective o2nc calm in bed Objective Last 24 Hour Vital Signs Date Time Temp Pulse Resp B/P Pulse Ox O2 Delivery O2 Flow Rate FiO2 05/06/16 09:52 62 158/46 05/06/16 09:52 62 158/46 05/06/16 08:00 97.7 62 20 158/46 99 Nasal Cannula 2.0 05/06/16 04:00 97.2 60 20 143/49 100 Nasal Cannula 2.0 05/06/16 00:00 97.9 62 19 138/47 98 Nasal Cannula 2.0 05/05/16 20:04 98.1 82 20 134/72 98 Nasal Cannula 2.0 05/05/16 16:00 98.2 78 20 136/69 97 Nasal Cannula 2.0 05/05/16 12:43 98.0 05/05/16 11:15 Nasal Cannula 2.0 05/05/16 11:15 98.0 79 18 137/73 96 Nasal Cannula 2.0 Intake and Output 05/05/16 05/06/16 19:00 07:00 Intake Total 1320 ml 1240 ml Output Total 1775 ml 100 ml Balance -455 ml 1140 ml Intake Oral 720 ml 890 ml IV Total 600 ml 350 ml Output Urine Total 100 ml Hemodialysis UF 1775 ml # Voids 1 Height (Feet): 5 Height (Inches): 8.00 Weight (Pounds): 184 General Appearance: lethargic EENT: normal ENT inspection Neck: normal alignment Cardiovascular: normal peripheral pulses, normal rate, regular rhythm Respiratory/Chest: chest wall non-tender, lungs clear, normal breath sounds Abdomen: normal bowel sounds, non tender, soft Extremities: normal inspection Edema: no edema noted Arm (L), no edema noted Arm (R), no edema noted Leg (L), no edema noted Leg (R), no edema noted Pedal (L), no edema noted Pedal (R), no edema noted Generalized Neurologic: motor weakness Skin: normal pigmentation, warm/dry SNEHA PAIGE May 06, 2016 10:23
--- NOTE | 2016-05-06 10:29 | Diagnostic Imaging Report ---
Indication: SOB Technique: One view of the chest Comparison: none Findings: The heart is enlarged. Lungs and pleural spaces are clear previously demonstrated perihilar changes have resolved. There is residual pulmonary hilar vascular prominence Impression: No definite acute process currently Pulmonary hilar vascular prominence Previously demonstrated perihilar interstitial congestive changes are no longer evident
--- NOTE | 2016-05-06 11:39 | Infectious Diseases Prog Note ---
Assessment/Plan Assessment/Plan ASSESSMENT AND PLAN: 1. esbl e.coli/likely polymicrobial left foot wound infection with osteomyelitis and right foot 2nd toe osteo/wound - s/p debridement of left foot , s/p left leg revascularization - zosyn and vancomycin for another 15 day (total 6 week abx course) - watch labs and sed rate - wound culture of left foot and right food 2nd toe at [facility] were negative - may need further debridement and amputation per podiatry and surgery - patient with line access - ? mid line vs picc line, per nursing it is a picc line 2. Wound care per podiatry and surgery 3. End-stage renal disease on hemodialysis, treatment per Renal. 4. Diabetes. 5. Hypertension. 6. Blood sugar and blood pressure control per primary. 7. Human immunodeficiency virus. 8. Antiviral therapy. 9. Human immunodeficiency virus therapy per Dr. Chinchilla as an outpatient - f/u with Dr. chinchilla 10. Anemia. 11. Peripheral vascular disease. 12. Gastrointestinal disease. 13. Fistula. 14. Neurologic disease, VAD. 15. Transient ischemic attack. 16. Weakness. 17. Seizures. 18. Left ventricular hypertrophy. 19. Atrial septal defect. 20. Coagulopathy, hematological disorder. 21. Past medical history as noted. 22. Allergies to sulfa, pork and heparin, -nc 23. Case was discussed with the patient 24. wound care per protocol 25. Case was discussed with RN. 26. Notes and records were reviewed. 27. MAR was noted. 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 Subjective Constitutional: Reports: fatigue, Denies: fever HEENT: Denies: congestion Respiratory: Denies: shortness of breath Cardiovascular: Denies: chest pain Gastrointestinal/Abdominal: Denies: diarrhea, nausea, vomiting Genitourinary: Reports: other - no agarwal Neurologic: Denies: headache Psychiatric: Denies: depression Skin: Denies: rash Hematologic: Denies: bleeding Musculoskeletal: Denies: pain Allergies: Coded Allergies: HEPARIN (Verified Allergy, Severe, low platelets, 06/11/14) SULFA (SULFONAMIDE ANTIBIOTICS) (Verified Allergy, Severe, nephro toxic, ) ZOLPIDEM (Verified Allergy, Unknown, 05/03/16) MEROPENEM (Verified Adverse Reaction, Intermediate, 04/01/16) Nausea and vomiting Uncoded Allergies: pork products (Allergy, Severe, rashes, 06/11/14) Objective Vital Signs Last 24 Hour Vital Signs Date Time Temp Pulse Resp B/P Pulse Ox O2 Delivery O2 Flow Rate FiO2 05/06/16 10:20 97.7 05/06/16 09:52 62 158/46 05/06/16 09:52 62 158/46 05/06/16 08:00 97.7 62 20 158/46 99 Nasal Cannula 2.0 05/06/16 04:00 97.2 60 20 143/49 100 Nasal Cannula 2.0 05/06/16 00:00 97.9 62 19 138/47 98 Nasal Cannula 2.0 05/05/16 20:04 98.1 82 20 134/72 98 Nasal Cannula 2.0 05/05/16 16:00 98.2 78 20 136/69 97 Nasal Cannula 2.0 Height (Feet): 5 Height (Inches): 8.00 Weight (Pounds): 184 General Appearance: no acute distress HEENT: normocephalic, atraumatic, anicteric, mucous membranes moist, PERRL, EOMI, pharynx normal, supple, no JVD Respiratory/Chest: lungs clear, normal breath sounds, no respiratory distress, no accessory muscle use Cardiovascular: normal rate, regular rhythm, no gallop/murmur Abdomen: normal bowel sounds, soft, non tender, no organomegaly, non distended Genitourinary: other - no agarwal Extremities: other - wound covered Skin: no rash Neurologic/Psychiatric: dye house helper II-XII grossly normal, alert, oriented x 3, responsive Lymphatic: no neck adenopathy Musculoskeletal: no effusion Objective no imaging Microbiology Date/Time Source Procedure Growth Status 05/04/16 00:30 Nasal Nares MRSA Culture - Final NO METHICILLIN RESISTANT STAPH AUREUS... Complete 05/04/16 00:30 Rectum VRE Culture - Final Enterococcus Faecium - Vre Complete Labs Test 05/04/16 05:46 White Blood Count 4.9 K/UL (4.8-10.8) Red Blood Count 3.28 M/UL (4.70-6.10) Hemoglobin 10.3 G/DL (14.2-18.0) Hematocrit 32.9 % (42.0-52.0) Mean Corpuscular Volume 100 FL (80-99) Mean Corpuscular Hemoglobin 31.2 PG (27.0-31.0) Mean Corpuscular Hemoglobin Concent 31.2 G/DL (32.0-36.0) Red Cell Distribution Width 17.2 % (11.6-14.8) Platelet Count 182 K/UL (150-450) Mean Platelet Volume 9.1 FL (6.5-10.1) Neutrophils (%) (Auto) 28.0 % (45.0-75.0) Lymphocytes (%) (Auto) 43.4 % (20.0-45.0) Monocytes (%) (Auto) 18.1 % (1.0-10.0) Eosinophils (%) (Auto) 9.1 % (0.0-3.0) Basophils (%) (Auto) 1.4 % (0.0-2.0) Prothrombin Time 10.5 SEC (9.30-11.50) Prothromb Time International Ratio 1.0 (0.9-1.1) Activated Partial Thromboplast Time 27 SEC (23-33) Sodium Level 141 mEQ/L (135-145) Potassium Level 5.2 mEQ/L (3.4-4.9) Chloride Level 97 mEQ/L (98-107) Carbon Dioxide Level 26 mEQ/L (20-30) Anion Gap 18 (5-15) Blood Urea Nitrogen 59 mg/dL (7-23) Creatinine 7.2 mg/dL (0.7-1.2) Estimat Glomerular Filtration Rate 9.5 mL/min (>60) Glucose Level 61 mg/dL (74-106) Calcium Level 9.7 mg/dL (8.6-10.2) Total Bilirubin 0.7 mg/dL (0.0-1.2) Aspartate Amino Transf (AST/SGOT) 27 U/L (5-40) Alanine Aminotransferase (ALT/SGPT) 17 U/L (3-41) Alkaline Phosphatase 117 U/L (40-129) Total Protein 7.6 g/dL (6.6-8.7) Albumin 3.3 g/dL (3.5-5.2) Globulin 4.3 g/dL Albumin/Globulin Ratio 0.7 (1.0-2.7) Current Medications Medications (Trade) Dose Ordered Sig/Zohaib Route PRN Reason Start Time Stop Time Status Last Admin Dose Admin Acetaminophen (Tylenol) 650 mg Q4HR PRN ORAL Prn Headache/Temp > 101 05/03/16 20:45 06/02/16 20:44 Clonidine HCl (Catapres) 0.1 mg EVERY 8 HOURS PRN ORAL SBP>160 05/03/16 20:45 06/02/16 20:44 Clopidogrel Bisulfate (Plavix) 75 mg DAILY ORAL 05/04/16 09:00 06/03/16 08:59 05/06/16 09:52 Diphenhydramine HCl (Benadryl) 50 mg EVERY 6 HOURS IV 05/04/16 00:00 06/03/16 00:00 05/06/16 05:31 Docusate Sodium (Colace) 100 mg TWICE A DAY ORAL 05/04/16 09:00 06/03/16 08:59 05/06/16 09:52 Hydromorphone HCl (Dilaudid) 1 mg EVERY 4 HOURS PRN IVP Severe Pain (Pain Scale 7-10) 05/03/16 20:45 05/10/16 20:44 05/06/16 09:50 Lanthanum Carbonate (Fosrenol) 1,500 mg TID ORAL 05/04/16 09:00 06/03/16 08:59 05/05/16 18:31 Lorazepam (Ativan) 1 mg EVERY 6 HOURS PRN ORAL For Anxiety 05/03/16 20:45 05/10/16 20:44 Metoprolol Succinate (Toprol XL) 25 mg DAILY ORAL 05/03/16 21:00 06/02/16 20:59 05/06/16 09:52 Nateglinide (Starlix) 120 mg TIAC ORAL 05/04/16 16:30 06/03/16 16:29 05/06/16 06:43 Nifedipine (Procardia XL) 60 mg DAILY ORAL 05/04/16 09:00 06/03/16 08:59 05/06/16 09:52 Ondansetron HCl (Zofran) 4 mg Q6H PRN IV Nausea & Vomiting 05/03/16 20:45 06/02/16 20:44 Oxycodone/ Acetaminophen (Percocet 10/325) 1 tab Q4H PRN ORAL Breakthrough Pain 05/03/16 20:45 05/10/16 20:44 05/06/16 03:39 Patient Own Medication (Patient's Own Med) 1 ea Sa@1700 ORAL 05/05/16 17:00 06/04/16 16:59 05/05/16 16:44 Patient Own Medication (Patient's Own Med) 1 ea WeSa@1700 ORAL 05/05/16 17:00 06/04/16 16:59 05/05/16 16:44 Patient Own Medication 2 ea 2 ea BID ORAL 05/04/16 09:00 06/03/16 08:59 05/06/16 09:51 Piperacillin Sod/ Tazobactam Sod/ Dextrose (Zosyn/D5W 50ml) 50 ml @ 100 mls/hr Q8HR IVPB 05/05/16 14:00 05/10/16 13:59 05/06/16 05:44 Polyethylene Glycol (Miralax) 17 gm DAILY PRN ORAL Constipation 05/03/16 20:45 06/02/16 20:44 Sevelamer Carbonate (Renvela) 800 mg TID ORAL 05/04/16 09:00 06/03/16 08:59 05/06/16 09:50 Sevelamer Carbonate (Renvela) 2,400 mg THREE TIMES A DAY ORAL 05/04/16 09:00 06/03/16 08:59 05/06/16 09:50 Sodium Chloride (0.45% NS 1000ml) 1,000 ml @ 50 mls/hr Q20H IV 05/03/16 22:00 06/02/16 21:59 05/05/16 14:09 Vancomycin HCl 1 ea 1 ea DAILY PRN MISC Per rx protocol 05/05/16 13:00 06/04/16 12:59 Vitamin A/Vitamin D (A & D Oint) 1 applic Q12HR TOPIC 05/04/16 12:00 06/03/16 11:59 05/06/16 09:00 INOCENCIA DOS SANTOS May 06, 2016 11:39
[2016-05-06 12:00] VITALS: BP 157/46
[2016-05-06 15:35] LABS: BASOPHILS % (AUTO) 1.5 % (0.0-2.0); EOSINOPHILS % (AUTO) 9.4 % (0.0-3.0); LYMPHOCYTES % (AUTO) 41.2 % (20.0-45.0); MEAN CORPUSCULAR HEMOGLOBIN 31.4 PG (27.0-31.0); MEAN CORPUSCULAR HGB CONC 31.2 G/DL (32.0-36.0); MEAN CORPUSCULAR VOLUME 101 FL (80-99); MEAN PLATELET VOLUME 7.6 FL (6.5-10.1); MONOCYTES % (AUTO) 13.5 % (1.0-10.0); NEUTROPHILS % (AUTO) 34.5 % (45.0-75.0); PLATELET COUNT 168 K/UL (150-450); RED BLOOD COUNT 3.26 M/UL (4.70-6.10); RED CELL DISTRIBUTION WIDTH 16.1 % (11.6-14.8); WHITE BLOOD COUNT 6.2 K/UL (4.8-10.8)
[2016-05-06 15:44] LABS: CALCIUM 9.7 mg/dL (8.6-10.2); CREATININE 7.7 mg/dL (0.7-1.2); GLOMERULAR FILTRATION RATE 8.7 mL/min (>60); POTASSIUM 5.4 mEQ/L (3.4-4.9)
[2016-05-06 16:00] VITALS: BP 134/37
[2016-05-06 20:00] VITALS: BP 122/36
--- NOTE | 2016-05-06 23:38 | General Progress Note ---
Progress Note Progress Note Vascular Surgery Consult dictated # [id number] BERTHA IBRAHIM May 06, 2016 23:38
[2016-05-07] MEDS: HYDROmorphone 1mg/ml Carpuject IVP PRN ×5 (02:40→20:11)
[2016-05-07 04:00] VITALS: BP 144/63
[2016-05-07] MEDS: DiphenhydrAMINE 50mg/ml Inj IV SCH ×5 (06:26→23:37)
--- NOTE | 2016-05-07 06:35 | General Progress Note ---
Assessment/Plan Problem List: (1) Vascular disease ICD Codes: I99.9 - Unspecified disorder of circulatory system SNOMED: 05601047 (2) ESRD (end stage renal disease) ICD Codes: N18.6 - End stage renal disease SNOMED: 86973161 (3) HIV disease ICD Codes: B20 - Human immunodeficiency virus [HIV] disease SNOMED: 45117171 (4) Diabetes mellitus out of control ICD Codes: E11.65 - Type 2 diabetes mellitus with hyperglycemia SNOMED: 303039953 Assessment/Plan continue with Starlix lower dose of 60 mg ac tid + SSI Subjective Allergies: Coded Allergies: HEPARIN (Verified Allergy, Severe, low platelets, 06/11/14) SULFA (SULFONAMIDE ANTIBIOTICS) (Verified Allergy, Severe, nephro toxic, ) ZOLPIDEM (Verified Allergy, Unknown, 05/03/16) MEROPENEM (Verified Adverse Reaction, Intermediate, 04/01/16) Nausea and vomiting Uncoded Allergies: pork products (Allergy, Severe, rashes, 06/11/14) All Systems: reviewed and negative except above Subjective events noted Objective Last 24 Hour Vital Signs Date Time Temp Pulse Resp B/P Pulse Ox O2 Delivery O2 Flow Rate FiO2 05/07/16 04:00 97.9 56 18 144/63 97 Nasal Cannula 2.0 05/06/16 22:57 98.1 05/06/16 20:14 Nasal Cannula 2.0 28 05/06/16 20:14 99 Nasal Cannula 2.0 28 05/06/16 20:00 98.2 55 20 122/36 100 Nasal Cannula 2.0 05/06/16 17:47 98.1 05/06/16 16:00 98.1 58 18 134/37 100 Nasal Cannula 2.0 05/06/16 13:28 Nasal Cannula 2.0 28 05/06/16 13:28 98 Nasal Cannula 2.0 28 05/06/16 12:00 98.1 62 19 157/46 99 Nasal Cannula 2.0 05/06/16 09:52 62 158/46 05/06/16 09:52 62 158/46 05/06/16 08:00 97.7 62 20 158/46 99 Nasal Cannula 2.0 Intake and Output 05/06/16 05/07/16 19:00 07:00 Intake Total 760 ml 610 ml Balance 760 ml 610 ml Intake Oral 360 ml 610 ml IV Total 400 ml # Voids 2 # Bowel Movements 2 Laboratory Tests 05/06/16 14:55: White Blood Count 6.2, Red Blood Count 3.26L, Hemoglobin 10.2L, Hematocrit 32.8L , Mean Corpuscular Volume 101H, Mean Corpuscular Hemoglobin 31.4H, Mean Corpuscular Hemoglobin Concent 31.2L, Red Cell Distribution Width 16.1H, Platelet Count 168, Mean Platelet Volume 7.6, Neutrophils (%) (Auto) 34.5L, Lymphocytes (%) (Auto) 41.2, Monocytes (%) (Auto) 13.5H, Eosinophils (%) (Auto) 9.4H, Basophils (%) (Auto) 1.5, Erythrocyte Sedimentation Rate 105H, Sodium Level 129L, Potassium Level 5.4H, Chloride Level 88L, Carbon Dioxide Level 21, Anion Gap 20H, Blood Urea Nitrogen 78H, Creatinine 7.7H, Estimat Glomerular Filtration Rate 8.7, Glucose Level 117H, Calcium Level 9.7 Height (Feet): 5 Height (Inches): 8.00 Weight (Pounds): 184 General Appearance: no apparent distress EENT: pale conjunctivae Neck: normal alignment Cardiovascular: regular rhythm Respiratory/Chest: lungs clear Abdomen: normal bowel sounds Pelvis: normal external exam Objective Current Medications Medications (Trade) Dose Ordered Sig/Zohaib Route PRN Reason Start Time Stop Time Status Last Admin Dose Admin Acetaminophen (Tylenol) 650 mg Q4HR PRN ORAL Prn Headache/Temp > 101 05/03/16 20:45 06/02/16 20:44 Clonidine HCl (Catapres) 0.1 mg EVERY 8 HOURS PRN ORAL SBP>160 05/03/16 20:45 06/02/16 20:44 Diphenhydramine HCl (Benadryl) 50 mg EVERY 6 HOURS IV 05/04/16 00:00 06/03/16 00:00 05/07/16 06:26 Docusate Sodium (Colace) 100 mg TWICE A DAY ORAL 05/04/16 09:00 06/03/16 08:59 05/06/16 17:59 Hydromorphone HCl (Dilaudid) 1 mg EVERY 4 HOURS PRN IVP Severe Pain (Pain Scale 7-10) 05/03/16 20:45 05/10/16 20:44 05/07/16 06:27 Lanthanum Carbonate (Fosrenol) 1,500 mg TID ORAL 05/04/16 09:00 06/03/16 08:59 05/05/16 18:31 Lorazepam (Ativan) 1 mg EVERY 6 HOURS PRN ORAL For Anxiety 05/03/16 20:45 05/10/16 20:44 Metoprolol Succinate (Toprol XL) 25 mg DAILY ORAL 05/03/16 21:00 06/02/16 20:59 05/06/16 09:52 Nateglinide (Starlix) 60 mg TIAC ORAL 05/07/16 11:30 06/06/16 11:29 Nifedipine (Procardia XL) 60 mg DAILY ORAL 05/04/16 09:00 06/03/16 08:59 05/06/16 09:52 Ondansetron HCl (Zofran) 4 mg Q6H PRN IV Nausea & Vomiting 05/03/16 20:45 06/02/16 20:44 Oxycodone/ Acetaminophen (Percocet 10/325) 1 tab Q4H PRN ORAL Breakthrough Pain 05/03/16 20:45 05/10/16 20:44 05/06/16 16:48 Patient Own Medication (Patient's Own Med) 1 ea Sa@1700 ORAL 05/05/16 17:00 06/04/16 16:59 05/05/16 16:44 Patient Own Medication (Patient's Own Med) 1 ea WeSa@1700 ORAL 05/05/16 17:00 06/04/16 16:59 05/05/16 16:44 Patient Own Medication (Patient's Own Med) 2 ea BID ORAL 05/04/16 09:00 06/03/16 08:59 05/06/16 17:59 Piperacillin Sod/ Tazobactam Sod/ Dextrose (Zosyn/D5W 50ml) 50 ml @ 100 mls/hr Q8HR IVPB 05/05/16 14:00 05/10/16 13:59 05/07/16 06:26 Polyethylene Glycol (Miralax) 17 gm DAILY PRN ORAL Constipation 05/03/16 20:45 06/02/16 20:44 Sevelamer Carbonate (Renvela) 800 mg TID ORAL 05/04/16 09:00 2/5/17 08:59 05/06/16 17:59 Sevelamer Carbonate (Renvela) 2,400 mg THREE TIMES A DAY ORAL 05/04/16 09:00 06/03/16 08:59 05/06/16 17:59 Vancomycin HCl 1 ea 1 ea DAILY PRN MISC Per rx protocol 05/05/16 13:00 06/04/16 12:59 Vitamin A/Vitamin D (A & D Oint) 1 applic Q12HR TOPIC 05/04/16 12:00 06/03/16 11:59 05/06/16 22:28 Item Value Date Time Bedside Blood Glucose 121 mg/dl H 05/06/16 2100 Bedside Blood Glucose 92 mg/dl 05/06/16 1630 Bedside Blood Glucose 127 mg/dl H 05/06/16 1130 Bedside Blood Glucose 108 mg/dl 05/06/16 0603 DO CERDA May 07, 2016 06:35
[2016-05-07 08:00] VITALS: BP 160/54
[2016-05-07] MEDS: Docusate 100mg cap ORAL SCH ×2 (08:51→17:33)
[2016-05-07] MEDS: VIRACEPT ORAL SCH ×2 (08:51→17:33)
[2016-05-07] MEDS: Renvela 2400 mg pkt ORAL SCH ×3 (08:51→17:41)
[2016-05-07] MEDS: Renvela 800mg Pkt ORAL SCH ×3 (08:51→17:41)
[2016-05-07] MEDS: Vitamin A&D Oint 2oz Tube TOPIC SCH ×2 (08:52→21:24)
[2016-05-07] MEDS: Lanthanum 1000mg tab ORAL SCH ×3 (08:53→17:33)
--- NOTE | 2016-05-07 10:45 | Podiatric Progress Note ---
Assessment/Plan Patient Lloyd Grigsby is a 60 year old male who was admitted on May 03, 2016 at 18:30 with Problems: Assessment/Plan A/ 1) Osteomyelitis left foot and right 2nd toe 2) Nonpressure ulcer right 2nd toe to level of bone 3) Nonpressure ulcer left foot (surgical) to level of muscle 4) Severe PVD - s/p intervention bilateral 5) DM 6) ESRD 7) Amputated toes left foot 8) Nonpressure ulcer submet head 5th right foot to subq P/ 1) Cont IV abx per ID 2) Scheduled for right 2nd toe amp Tomorrow at 2:30pm, pending consent. to call me with questions 3) Wound Nurse consulted for MWF VAC dressing changes to left foot 4) Cont heel protectors 5) Strict glycemic control for optimal wound healing Subjective Allergies: Coded Allergies: HEPARIN (Verified Allergy, Severe, low platelets, 06/11/14) SULFA (SULFONAMIDE ANTIBIOTICS) (Verified Allergy, Severe, nephro toxic, ) ZOLPIDEM (Verified Allergy, Unknown, 05/03/16) MEROPENEM (Verified Adverse Reaction, Intermediate, 04/01/16) Nausea and vomiting Uncoded Allergies: pork products (Allergy, Severe, rashes, 06/11/14) Subjective Patient being dialyzed Objective Exam Last 24 Hour Vital Signs Date Time Temp Pulse Resp B/P Pulse Ox O2 Delivery O2 Flow Rate FiO2 05/07/16 08:20 Nasal Cannula 2.0 05/07/16 08:00 97.7 61 19 160/54 93 Nasal Cannula 2.0 05/07/16 07:59 Nasal Cannula 2.0 28 05/07/16 07:58 99 Nasal Cannula 2.0 28 05/07/16 04:00 97.9 56 18 144/63 97 Nasal Cannula 2.0 05/06/16 22:57 98.1 05/06/16 20:14 Nasal Cannula 2.0 28 05/06/16 20:14 99 Nasal Cannula 2.0 28 05/06/16 20:00 98.2 55 20 122/36 100 Nasal Cannula 2.0 05/06/16 17:47 98.1 05/06/16 16:00 98.1 58 18 134/37 100 Nasal Cannula 2.0 05/06/16 13:28 Nasal Cannula 2.0 28 05/06/16 13:28 98 Nasal Cannula 2.0 28 05/06/16 12:00 98.1 62 19 157/46 99 Nasal Cannula 2.0 Laboratory Tests Test 05/06/16 14:55 White Blood Count 6.2 K/UL (4.8-10.8) Red Blood Count 3.26 M/UL (4.70-6.10) L Hemoglobin 10.2 G/DL (14.2-18.0) L Hematocrit 32.8 % (42.0-52.0) L Mean Corpuscular Volume 101 FL (80-99) H Mean Corpuscular Hemoglobin 31.4 PG (27.0-31.0) H Mean Corpuscular Hemoglobin Concent 31.2 G/DL (32.0-36.0) L Red Cell Distribution Width 16.1 % (11.6-14.8) H Platelet Count 168 K/UL (150-450) Mean Platelet Volume 7.6 FL (6.5-10.1) Neutrophils (%) (Auto) 34.5 % (45.0-75.0) L Lymphocytes (%) (Auto) 41.2 % (20.0-45.0) Monocytes (%) (Auto) 13.5 % (1.0-10.0) H Eosinophils (%) (Auto) 9.4 % (0.0-3.0) H Basophils (%) (Auto) 1.5 % (0.0-2.0) Erythrocyte Sedimentation Rate 105 MM/HR (0-20) H Sodium Level 129 mEQ/L (135-145) L Potassium Level 5.4 mEQ/L (3.4-4.9) H Chloride Level 88 mEQ/L (98-107) L Carbon Dioxide Level 21 mEQ/L (20-30) Anion Gap 20 (5-15) H Blood Urea Nitrogen 78 mg/dL (7-23) H Creatinine 7.7 mg/dL (0.7-1.2) H Estimat Glomerular Filtration Rate 8.7 mL/min (>60) Glucose Level 117 mg/dL (74-106) H Calcium Level 9.7 mg/dL (8.6-10.2) Microbiology Date/Time Source Procedure Growth Status 05/04/16 00:30 Nasal Nares MRSA Culture - Final NO METHICILLIN RESISTANT STAPH AUREUS... 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
[2016-05-07 11:10] VITALS: BP 127/52
[2016-05-07 11:29] LABS: CALCIUM 9.1 mg/dL (8.6-10.2); CREATININE 7.5 mg/dL (0.7-1.2); POTASSIUM 5.3 mEQ/L (3.4-4.9)
[2016-05-07] MEDS: Nateglinide 60mg tab ORAL SCH ×2 (11:29→17:33)
--- NOTE | 2016-05-07 13:45 | Wound Nurse Progress Note ---
Wound RN Progress Note Wound Consult Wound VAC dressing change to left lateral foot wound. Tolerated wound dressing change well,denies pain to site at this time, no facial grimacing present. Upon assessment of wound noted wound bed 100% pink, no s/s of infection to site , no odor present.No further deterioration present. VAC Granuform dressing medium size applied, 1 piece of foam applied, provided protective layer to skin around periwound for skin protection. Canister on patients personal portable wound vac also changed, all new sealed supplies used. Dressing is currently intact, flowing well, 125mm hg suction in place, no leakage to newly applied wound dressing. Patient verbalized thank you. Patient repositioned,both lower extremities and left lateral wound site floated. DANNA ALEGRE May 07, 2016 13:45
--- NOTE | 2016-05-07 13:50 | Wound Nurse Progress Note ---
Wound RN Progress Note Wound Consult Upon of assessment of wound vac canister change noted moderate amount of serosanguinous drainage present. no foul odor noted. DANNA ALEGRE May 07, 2016 13:50
--- NOTE | 2016-05-07 14:22 | General Progress Note ---
Assessment/Plan Problem List: (1) Shortness of breath ICD Codes: R06.02 - Shortness of breath SNOMED: 606404306 (2) Osteomyelitis ICD Codes: M86.9 - Osteomyelitis, unspecified SNOMED: 66214989 (3) Diabetes mellitus out of control ICD Codes: E11.65 - Type 2 diabetes mellitus with hyperglycemia SNOMED: 283549628 (4) Encounter for management of vacuum-assisted closure (VAC) of wound SNOMED: 562723139 (5) Ativan use disorder, mild ICD Codes: F13.10 - Sedative, hypnotic or anxiolytic abuse, uncomplicated SNOMED: 999572094 (6) Anemia ICD Codes: D64.9 - Anemia, unspecified SNOMED: 476930113 (7) Vascular disease ICD Codes: I99.9 - Unspecified disorder of circulatory system SNOMED: 07673520 (8) Sepsis ICD Codes: A41.9 - Sepsis, unspecified organism SNOMED: 24695837 (9) ESRD (end stage renal disease) ICD Codes: N18.6 - End stage renal disease SNOMED: 67446166 (10) HIV disease ICD Codes: B20 - Human immunodeficiency virus [HIV] disease SNOMED: 74284941 (11) Pain ICD Codes: R52 - Pain, unspecified SNOMED: 61100456 Status: stable, progressing, tolerating diet Assessment/Plan ot pt diet wound care abx per id cbc bmp in am Subjective Constitutional: Reports: weakness Allergies: Coded Allergies: HEPARIN (Verified Allergy, Severe, low platelets, 06/11/14) SULFA (SULFONAMIDE ANTIBIOTICS) (Verified Allergy, Severe, nephro toxic, ) ZOLPIDEM (Verified Allergy, Unknown, 05/03/16) MEROPENEM (Verified Adverse Reaction, Intermediate, 04/01/16) Nausea and vomiting Uncoded Allergies: pork products (Allergy, Severe, rashes, 06/11/14) All Systems: reviewed and negative except above Subjective o2nc calm in bed Objective Last 24 Hour Vital Signs Date Time Temp Pulse Resp B/P Pulse Ox O2 Delivery O2 Flow Rate FiO2 05/07/16 12:00 97.7 05/07/16 11:10 97.1 69 20 127/52 Nasal Cannula 2.0 05/07/16 11:10 Nasal Cannula 2.0 05/07/16 08:20 Nasal Cannula 2.0 05/07/16 08:00 97.7 61 19 160/54 93 Nasal Cannula 2.0 05/07/16 07:59 Nasal Cannula 2.0 28 05/07/16 07:58 99 Nasal Cannula 2.0 28 05/07/16 04:00 97.9 56 18 144/63 97 Nasal Cannula 2.0 05/06/16 20:14 Nasal Cannula 2.0 28 05/06/16 20:14 99 Nasal Cannula 2.0 28 05/06/16 20:00 98.2 55 20 122/36 100 Nasal Cannula 2.0 05/06/16 17:47 98.1 05/06/16 16:00 98.1 58 18 134/37 100 Nasal Cannula 2.0 Intake and Output 05/06/16 05/07/16 19:00 07:00 Intake Total 760 ml 610 ml Balance 760 ml 610 ml Intake Oral 360 ml 610 ml IV Total 400 ml # Voids 2 # Bowel Movements 2 Laboratory Tests 05/06/16 14:55: White Blood Count 6.2, Red Blood Count 3.26L, Hemoglobin 10.2L, Hematocrit 32.8L , Mean Corpuscular Volume 101H, Mean Corpuscular Hemoglobin 31.4H, Mean Corpuscular Hemoglobin Concent 31.2L, Red Cell Distribution Width 16.1H, Platelet Count 168, Mean Platelet Volume 7.6, Neutrophils (%) (Auto) 34.5L, Lymphocytes (%) (Auto) 41.2, Monocytes (%) (Auto) 13.5H, Eosinophils (%) (Auto) 9.4H, Basophils (%) (Auto) 1.5, Erythrocyte Sedimentation Rate 105H, Sodium Level 129L, Potassium Level 5.4H, Chloride Level 88L, Carbon Dioxide Level 21, Anion Gap 20H, Blood Urea Nitrogen 78H, Creatinine 7.7H, Estimat Glomerular Filtration Rate 8.7, Glucose Level 117H, Calcium Level 9.7 05/07/16 09:30: Sodium Level 130L, Potassium Level 5.3H, Chloride Level 86L, Carbon Dioxide Level 21, Anion Gap 23H, Blood Urea Nitrogen 88H, Creatinine 7.5H, Estimat Glomerular Filtration Rate 9.0, Glucose Level 193H, Calcium Level 9.1, Random Vancomycin Level 28.9 Height (Feet): 5 Height (Inches): 8.00 Weight (Pounds): 184 General Appearance: lethargic EENT: normal ENT inspection Neck: normal alignment Cardiovascular: normal peripheral pulses, normal rate, regular rhythm Respiratory/Chest: chest wall non-tender, lungs clear, normal breath sounds Abdomen: normal bowel sounds, non tender, soft Extremities: normal inspection Edema: no edema noted Arm (L), no edema noted Arm (R), no edema noted Leg (L), no edema noted Leg (R), no edema noted Pedal (L), no edema noted Pedal (R), no edema noted Generalized Neurologic: motor weakness Skin: normal pigmentation, warm/dry SNEHA PAIGE May 07, 2016 14:22
[2016-05-07 15:40] LABS: BASOPHILS % (AUTO) 1.9 % (0.0-2.0); EOSINOPHILS % (AUTO) 4.7 % (0.0-3.0); LYMPHOCYTES % (AUTO) 26.9 % (20.0-45.0); MEAN CORPUSCULAR HEMOGLOBIN 30.7 PG (27.0-31.0); MEAN CORPUSCULAR HGB CONC 29.7 G/DL (32.0-36.0); MEAN CORPUSCULAR VOLUME 103 FL (80-99); MEAN PLATELET VOLUME 8.8 FL (6.5-10.1); MONOCYTES % (AUTO) 12.4 % (1.0-10.0); NEUTROPHILS % (AUTO) 54.1 % (45.0-75.0); PLATELET COUNT 192 K/UL (150-450); RED BLOOD COUNT 3.14 M/UL (4.70-6.10); RED CELL DISTRIBUTION WIDTH 16.6 % (11.6-14.8); WHITE BLOOD COUNT 6.5 K/UL (4.8-10.8)
[2016-05-07 16:00] VITALS: BP 105/58
--- NOTE | 2016-05-07 16:24 | Infectious Diseases Prog Note ---
Assessment/Plan Assessment/Plan ASSESSMENT AND PLAN: 1. esbl e.coli/likely polymicrobial left foot wound infection with osteomyelitis and right foot 2nd toe osteo/wound - s/p debridement of left foot , s/p left leg revascularization - zosyn and vancomycin for another 14 day (total 6 week abx course) - watch labs and sed rate - wound culture of left foot and right food 2nd toe at [facility] were negative - amputation of right 2nd toe planned - patient with line access - ? mid line vs picc line, per nursing it is a picc line - wound vac left foot 2. Wound care per podiatry and surgery 3. End-stage renal disease on hemodialysis, treatment per Renal. 4. Diabetes. 5. Hypertension. 6. Blood sugar and blood pressure control per primary. 7. Human immunodeficiency virus. 8. Antiviral therapy. 9. Human immunodeficiency virus therapy per Dr. Chinchilla as an outpatient - f/u with Dr. chinchilla 10. Anemia. 11. Peripheral vascular disease. 12. Gastrointestinal disease. 13. Fistula. 14. Neurologic disease, VAD. 15. Transient ischemic attack. 16. Weakness. 17. Seizures. 18. Left ventricular hypertrophy. 19. Atrial septal defect. 20. Coagulopathy, hematological disorder. 21. Past medical history as noted. 22. Allergies to sulfa, pork and heparin, -dc 23. Case was discussed with the patient 24. wound care per protocol 25. Case was discussed with RN. 26. Notes and records were reviewed. 27. MAR was noted. 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 Subjective Constitutional: Denies: fever HEENT: Denies: congestion Respiratory: Denies: shortness of breath Cardiovascular: Denies: chest pain Gastrointestinal/Abdominal: Denies: diarrhea, nausea, vomiting Genitourinary: Denies: dysuria Neurologic: Denies: headache Psychiatric: Denies: depression Skin: Denies: rash Hematologic: Denies: bleeding Musculoskeletal: Denies: pain Allergies: Coded Allergies: HEPARIN (Verified Allergy, Severe, low platelets, 06/11/14) SULFA (SULFONAMIDE ANTIBIOTICS) (Verified Allergy, Severe, nephro toxic, ) ZOLPIDEM (Verified Allergy, Unknown, 05/03/16) MEROPENEM (Verified Adverse Reaction, Intermediate, 04/01/16) Nausea and vomiting Uncoded Allergies: pork products (Allergy, Severe, rashes, 06/11/14) Objective Vital Signs Last 24 Hour Vital Signs Date Time Temp Pulse Resp B/P Pulse Ox O2 Delivery O2 Flow Rate FiO2 05/07/16 14:23 97.7 05/07/16 12:00 97.7 05/07/16 11:10 97.1 69 20 127/52 Nasal Cannula 2.0 05/07/16 11:10 Nasal Cannula 2.0 05/07/16 08:20 Nasal Cannula 2.0 05/07/16 08:00 97.7 61 19 160/54 93 Nasal Cannula 2.0 05/07/16 07:59 Nasal Cannula 2.0 28 05/07/16 07:58 99 Nasal Cannula 2.0 28 05/07/16 04:00 97.9 56 18 144/63 97 Nasal Cannula 2.0 05/06/16 20:14 Nasal Cannula 2.0 28 05/06/16 20:14 99 Nasal Cannula 2.0 28 05/06/16 20:00 98.2 55 20 122/36 100 Nasal Cannula 2.0 Height (Feet): 5 Height (Inches): 8.00 Weight (Pounds): 184 General Appearance: no acute distress HEENT: normocephalic, atraumatic, anicteric, mucous membranes moist, PERRL, EOMI, pharynx normal, supple, no JVD Respiratory/Chest: lungs clear, normal breath sounds, no respiratory distress, no accessory muscle use Cardiovascular: normal rate, regular rhythm, no gallop/murmur Abdomen: normal bowel sounds, soft, non tender, no organomegaly, non distended Genitourinary: other - + agarwal Extremities: no cyanosis Skin: no rash Neurologic/Psychiatric: banana room cutter II-XII grossly normal, alert, oriented x 3, responsive Lymphatic: no neck adenopathy Musculoskeletal: no effusion Objective no imaging Microbiology Date/Time Source Procedure Growth Status 05/04/16 00:30 Nasal Nares MRSA Culture - Final NO METHICILLIN RESISTANT STAPH AUREUS... Complete 05/04/16 00:30 Rectum VRE Culture - Final Enterococcus Faecium - Vre Complete Labs Test 05/06/16 14:55 05/07/16 09:30 05/07/16 15:00 White Blood Count 6.2 K/UL (4.8-10.8) 6.5 K/UL (4.8-10.8) Red Blood Count 3.26 M/UL (4.70-6.10) 3.14 M/UL (4.70-6.10) Hemoglobin 10.2 G/DL (14.2-18.0) 9.6 G/DL (14.2-18.0) Hematocrit 32.8 % (42.0-52.0) 32.4 % (42.0-52.0) Mean Corpuscular Volume 101 FL (80-99) 103 FL (80-99) Mean Corpuscular Hemoglobin 31.4 PG (27.0-31.0) 30.7 PG (27.0-31.0) Mean Corpuscular Hemoglobin Concent 31.2 G/DL (32.0-36.0) 29.7 G/DL (32.0-36.0) Red Cell Distribution Width 16.1 % (11.6-14.8) 16.6 % (11.6-14.8) Platelet Count 168 K/UL (150-450) 192 K/UL (150-450) Mean Platelet Volume 7.6 FL (6.5-10.1) 8.8 FL (6.5-10.1) Neutrophils (%) (Auto) 34.5 % (45.0-75.0) 54.1 % (45.0-75.0) Lymphocytes (%) (Auto) 41.2 % (20.0-45.0) 26.9 % (20.0-45.0) Monocytes (%) (Auto) 13.5 % (1.0-10.0) 12.4 % (1.0-10.0) Eosinophils (%) (Auto) 9.4 % (0.0-3.0) 4.7 % (0.0-3.0) Basophils (%) (Auto) 1.5 % (0.0-2.0) 1.9 % (0.0-2.0) Erythrocyte Sedimentation Rate 105 MM/HR (0-20) Sodium Level 129 mEQ/L (135-145) 130 mEQ/L (135-145) Potassium Level 5.4 mEQ/L (3.4-4.9) 5.3 mEQ/L (3.4-4.9) Chloride Level 88 mEQ/L (98-107) 86 mEQ/L (98-107) Carbon Dioxide Level 21 mEQ/L (20-30) 21 mEQ/L (20-30) Anion Gap 20 (5-15) 23 (5-15) Blood Urea Nitrogen 78 mg/dL (7-23) 88 mg/dL (7-23) Creatinine 7.7 mg/dL (0.7-1.2) 7.5 mg/dL (0.7-1.2) Estimat Glomerular Filtration Rate 8.7 mL/min (>60) 9.0 mL/min (>60) Glucose Level 117 mg/dL (74-106) 193 mg/dL (74-106) Calcium Level 9.7 mg/dL (8.6-10.2) 9.1 mg/dL (8.6-10.2) Random Vancomycin Level 28.9 ug/mL Laboratory Tests Test 05/07/16 09:30 05/07/16 15:00 Sodium Level 130 mEQ/L (135-145) L Potassium Level 5.3 mEQ/L (3.4-4.9) H Chloride Level 86 mEQ/L (98-107) L Carbon Dioxide Level 21 mEQ/L (20-30) Anion Gap 23 (5-15) H Blood Urea Nitrogen 88 mg/dL (7-23) H Creatinine 7.5 mg/dL (0.7-1.2) H Estimat Glomerular Filtration Rate 9.0 mL/min (>60) Glucose Level 193 mg/dL (74-106) H Calcium Level 9.1 mg/dL (8.6-10.2) Random Vancomycin Level 28.9 ug/mL White Blood Count 6.5 K/UL (4.8-10.8) Red Blood Count 3.14 M/UL (4.70-6.10) L Hemoglobin 9.6 G/DL (14.2-18.0) L Hematocrit 32.4 % (42.0-52.0) L Mean Corpuscular Volume 103 FL (80-99) H Mean Corpuscular Hemoglobin 30.7 PG (27.0-31.0) Mean Corpuscular Hemoglobin Concent 29.7 G/DL (32.0-36.0) L Red Cell Distribution Width 16.6 % (11.6-14.8) H Platelet Count 192 K/UL (150-450) Mean Platelet Volume 8.8 FL (6.5-10.1) Neutrophils (%) (Auto) 54.1 % (45.0-75.0) Lymphocytes (%) (Auto) 26.9 % (20.0-45.0) Monocytes (%) (Auto) 12.4 % (1.0-10.0) H Eosinophils (%) (Auto) 4.7 % (0.0-3.0) H Basophils (%) (Auto) 1.9 % (0.0-2.0) Hemoglobin A1c Pending Current Medications Medications (Trade) Dose Ordered Sig/Zohaib Route PRN Reason Start Time Stop Time Status Last Admin Dose Admin Acetaminophen (Tylenol) 650 mg Q4HR PRN ORAL Prn Headache/Temp > 101 05/03/16 20:45 06/02/16 20:44 Clonidine HCl (Catapres) 0.1 mg EVERY 8 HOURS PRN ORAL SBP>160 05/03/16 20:45 06/02/16 20:44 Diphenhydramine HCl (Benadryl) 50 mg EVERY 6 HOURS IV 05/04/16 00:00 06/03/16 00:00 05/07/16 06:26 Docusate Sodium (Colace) 100 mg TWICE A DAY ORAL 05/04/16 09:00 06/03/16 08:59 05/07/16 08:51 Hydromorphone HCl (Dilaudid) 1 mg EVERY 4 HOURS PRN IVP Severe Pain (Pain Scale 7-10) 05/03/16 20:45 05/10/16 20:44 05/07/16 16:10 Lanthanum Carbonate (Fosrenol) 1,500 mg TID ORAL 05/04/16 09:00 06/03/16 08:59 05/05/16 18:31 Lorazepam (Ativan) 1 mg EVERY 6 HOURS PRN ORAL For Anxiety 05/03/16 20:45 05/10/16 20:44 Metoprolol Succinate (Toprol XL) 25 mg DAILY ORAL 05/03/16 21:00 06/02/16 20:59 05/06/16 09:52 Nateglinide (Starlix) 60 mg TIAC ORAL 05/07/16 11:30 06/06/16 11:29 05/07/16 11:29 Nifedipine (Procardia XL) 60 mg DAILY ORAL 05/04/16 09:00 06/03/16 08:59 05/06/16 09:52 Ondansetron HCl (Zofran) 4 mg Q6H PRN IV Nausea & Vomiting 05/03/16 20:45 06/02/16 20:44 Oxycodone/ Acetaminophen (Percocet 10/325) 1 tab Q4H PRN ORAL Breakthrough Pain 05/03/16 20:45 05/10/16 20:44 05/07/16 13:24 Patient Own Medication (Patient's Own Med) 1 ea Sa@1700 ORAL 05/05/16 17:00 06/04/16 16:59 05/05/16 16:44 Patient Own Medication (Patient's Own Med) 1 ea WeSa@1700 ORAL 05/05/16 17:00 06/04/16 16:59 05/05/16 16:44 Patient Own Medication (Patient's Own Med) 2 ea BID ORAL 05/04/16 09:00 06/03/16 08:59 05/07/16 08:51 Piperacillin Sod/ Tazobactam Sod/ Dextrose (Zosyn/D5W 50ml) 50 ml @ 100 mls/hr Q8HR IVPB 05/05/16 14:00 05/10/16 13:59 05/07/16 13:24 Polyethylene Glycol (Miralax) 17 gm DAILY PRN ORAL Constipation 05/03/16 20:45 06/02/16 20:44 Sevelamer Carbonate (Renvela) 800 mg TID ORAL 05/04/16 09:00 06/03/16 08:59 05/07/16 13:17 Sevelamer Carbonate (Renvela) 2,400 mg THREE TIMES A DAY ORAL 05/04/16 09:00 06/03/16 08:59 05/07/16 13:17 Vancomycin HCl 1 ea 1 ea DAILY PRN MISC Per rx protocol 05/05/16 13:00 06/04/16 12:59 Vitamin A/Vitamin D (A & D Oint) 1 applic Q12HR TOPIC 05/04/16 12:00 06/03/16 11:59 05/07/16 08:52 INOCENCIA DOS SANTOS May 07, 2016 16:24
[2016-05-07] MEDS ORDERED: NS 275ml ONE (16:40)
--- NOTE | 2016-05-07 17:15 | Nephrology Progress Note ---
Assessment/Plan Assessment 1.ESRD 2.WEN 3.PVD 4.HTN 5.anemia of ckd 6.HIV Plan PLAN to continue iv antibiotic dialysis today continue epogen continue renagel Subjective Constitutional: Reports: no symptoms HEENT: Reports: no symptoms Genitourinary: Reports: no symptoms Neurologic/Psychiatric: Reports: no symptoms Subjective alert and wake on hemodialysis Objective Objective Last 24 Hour Vital Signs Date Time Temp Pulse Resp B/P Pulse Ox O2 Delivery O2 Flow Rate FiO2 05/07/16 14:23 97.7 05/07/16 12:00 97.7 05/07/16 11:10 97.1 69 20 127/52 Nasal Cannula 2.0 05/07/16 11:10 Nasal Cannula 2.0 05/07/16 08:20 Nasal Cannula 2.0 05/07/16 08:00 97.7 61 19 160/54 93 Nasal Cannula 2.0 05/07/16 07:59 Nasal Cannula 2.0 28 05/07/16 07:58 99 Nasal Cannula 2.0 28 05/07/16 04:00 97.9 56 18 144/63 97 Nasal Cannula 2.0 05/06/16 20:14 Nasal Cannula 2.0 28 05/06/16 20:14 99 Nasal Cannula 2.0 28 05/06/16 20:00 98.2 55 20 122/36 100 Nasal Cannula 2.0 Intake and Output 05/06/16 05/07/16 19:00 07:00 Intake Total 760 ml 610 ml Balance 760 ml 610 ml Intake Oral 360 ml 610 ml IV Total 400 ml # Voids 2 # Bowel Movements 2 Laboratory Tests 05/07/16 09:30: Sodium Level 130L, Potassium Level 5.3H, Chloride Level 86L, Carbon Dioxide Level 21, Anion Gap 23H, Blood Urea Nitrogen 88H, Creatinine 7.5H, Estimat Glomerular Filtration Rate 9.0, Glucose Level 193H, Calcium Level 9.1, Random Vancomycin Level 28.9 05/07/16 15:00: White Blood Count 6.5, Red Blood Count 3.14L, Hemoglobin 9.6L, Hematocrit 32.4L , Mean Corpuscular Volume 103H, Mean Corpuscular Hemoglobin 30.7, Mean Corpuscular Hemoglobin Concent 29.7L, Red Cell Distribution Width 16.6H, Platelet Count 192, Mean Platelet Volume 8.8, Neutrophils (%) (Auto) 54.1, Lymphocytes (%) (Auto) 26.9, Monocytes (%) (Auto) 12.4H, Eosinophils (%) (Auto) 4.7H, Basophils (%) (Auto) 1.9, Hemoglobin A1c 4.3 Height (Feet): 5 Height (Inches): 8.00 Weight (Pounds): 184 Objective HEAD AND NECK: No JVP. No LAD. No thyromegaly. Extraocular movement intact. Pupils are reactive to light and accommodation. LUNGS: Decreased breathing sound on the both sides. CARDIAC: Regular rate and rhythm. S1 and S2. No murmur. No rub. ABDOMEN: Soft, nontender, and nondistended. EXTREMITIES: Has left lower extremity ulceration, which at this time is on the right toe, which is under dressing. LB SON May 07, 2016 17:15
[2016-05-07 20:00] VITALS: BP 121/55
--- NOTE | 2016-05-07 22:57 | Consultation ---
DATE OF CONSULTATION: ENDOCRINOLOGY CONSULTATION: _I was asked to see this patient in endocrinology consultation fo evaluate type 2 Diabetes out of control PERTINENT HISTORY:Complex case involving hepatitis C and HIV, peripheral artery disease, diabetic ulcer of rigjt foot, and hypertension.He is on [id number] 120 mg po TID ac and has CKD 4 on diLYSIS PAST MEDICAL HISTORY: see hpi PAST SURGICAL HISTORY: Amputation of all toes on left foot ALLERGIES: Include sulfa, and meropenem, Social History: disabled FAMILY HISTORY: Noncontributory. PHYSICAL EXAMINATION: GENERAL: i moderate distress___ VITAL SIGNS: BP 120/70,P80,R17,T98.0_ HEENT-RYAN.fundi WNL NECK-No JVD RESP-Nancy,CVS-Regu;at ABD-soft EXT-amputation of all toes on left foot with right diabetic foot ulcer. _ NEUROLOGIC: Intact. LABORATORY : Glucose 105 mjg% IIMPPRESIONS:1.Diabetes Mellitus in tight cntrol 2.Right Diabetic foot ulcer 3.CKD 5 on dialysis PLANS:Reduce starlix to 60 mg po TID sc.Hba1c in am.Accucchecks QId ac and HS with sliding scale Novolog. Lloyd De Anda M.D. DR: Lukasz JOB#: [id number] CC: AMBAR
--- NOTE | 2016-05-07 23:08 | Consultation ---
DATE OF CONSULTATION: 05/06/2016 VASCULAR SURGERY CONSULTATION REFERRING PHYSICIAN: 1. Sergei Hernández M.D. 2. Louis Barahona D.O. REASON FOR EVALUATION: Lower extremity foot evaluation. HISTORY OF PRESENTING ILLNESS: This is a 60-year-old male who has extensive medical history of end-stage renal failure on hemodialysis, diabetes, HIV, hepatitis C, allergy with heparin-induced thrombocytopenia. The patient had undergone bilateral leg successful tibial revascularization with excellent result. The patient has no palpable foot dorsalis pedis pulses. The patient had developed prior gangrene and underwent an amputation and wound debridement on the left foot, currently receiving wound vac by Dr. Blackburn and also had a right toe osteomyelitis for right toe amputation. Vascular Surgery is consulted for further evaluation. the patient currently has no complaints and is feeling better. PAST MEDICAL HISTORY: As above, history of end-stage renal failure on hemodialysis, hypertension, diabetes, hepatitis C, HIV, heparin induced thrombosis, history of tibial arterial occlusive disease, extensive bilateral stage revascularization percutaneously, history of left wound gangrene status post amputation, history of right toe necrosis. MEDICATIONS: See attached MAR. ALLERGIES: Heparin, meropenem, sulfa,and pork SOCIAL HISTORY: No history of smoking, drugs, or alcohol abuse. FAMILY HISTORY: Unremarkable. REVIEW OF SYSTEMS: Cardiovascular: No history of chest pain or palpitation. Pulmonary: No cough. No hemoptysis. Gastrointestinal: No history of abdominal pain, constipation, or diarrhea. Genitourinary: No urinary symptoms. Neurological: No history of stroke or seizures. PHYSICAL EXAMINATION: VITAL SIGNS: The patient is afebrile at 97.7 degrees, heart rate is 62, blood pressure is 168/76, respirations 20, and saturation is 99% on room air. He has palpable left upper arm AV shunt thrill LUNGS: Clear to auscultation bilaterally. HEART: Regular rate. ABDOMEN: Soft and nontender. EXTREMITIES: He has palpable femoral pulses and palpable popliteal and dorsalis pedis pulses strongly palpable bilateral, left foot wound VAC is noted in place. [place] granulation Pictures were reviewed. Right foot has a right toe necrosis and osteomyelitis. LABORATORY DATA: Reviewed. WBC 6.2, hemoglobin 10.2, and platelet count 168,000. Chemistry, sodium is 129, potassium 5.4, BUN 78, IMPRESSION: 1. Right toe necrosis and osteomyelitis awaiting right toe amputation. 2. History of left foot gangrene, status post open amputation with wound vac healing well and granulating. 3. Status post bilateral advanced stage percutaneous tibial revascularization with excellent result and palpable dorsalis pedis pulses. 4. Multiple medical morbidities with end-stage renal disease on hemodialysis, hypertension, diabetes mellitus, hepatitis C, human immunodeficiency virus, heparin-induced thrombocytopenia, and allergies PLAN AND RECOMMENDATIONS: 1. The patient cleared from vascular surgery standpoint for right toe amputation by Podiatry service. 2. Continue antibiotics. 3. Abx per infectious Disease service. 4. Osteomyelitis. Continue decubitus precautions, DVT prophylaxis with lower extremity sequential compression devices. 5. Continue with left leg wound vac therapy and close follow up with Podiatry service All were discussed with patient and his and their questions were answered. Marcos Dang M.D. DR: STEFANI JOB#: [id number] CC: Marcos Dang M.D.; Fax#: [phone] Hernández M.D. ; Fax#: [phone] Haddad M.D.; Fax#: [phone] AMBAR
[2016-05-08] VITALS: BP 121/51
[2016-05-08] MEDS: HYDROmorphone 1mg/ml Carpuject IVP PRN ×5 (00:27→18:11)
[2016-05-08 04:00] VITALS: BP 126/45
[2016-05-08] MEDS: Nateglinide 60mg tab ORAL SCH ×3 (05:33→16:30)
[2016-05-08] MEDS: DiphenhydrAMINE 50mg/ml Inj IV SCH ×3 (05:36→18:00)
[2016-05-08 07:44] LABS: BASOPHILS % (AUTO) 1.2 % (0.0-2.0); EOSINOPHILS % (AUTO) 6.6 % (0.0-3.0); LYMPHOCYTES % (AUTO) 30.8 % (20.0-45.0); MEAN CORPUSCULAR HEMOGLOBIN 30.6 PG (27.0-31.0); MEAN CORPUSCULAR HGB CONC 29.9 G/DL (32.0-36.0); MEAN CORPUSCULAR VOLUME 102 FL (80-99); MEAN PLATELET VOLUME 8.1 FL (6.5-10.1); MONOCYTES % (AUTO) 14.7 % (1.0-10.0); NEUTROPHILS % (AUTO) 46.7 % (45.0-75.0); PLATELET COUNT 177 K/UL (150-450); RED CELL DISTRIBUTION WIDTH 15.9 % (11.6-14.8); WHITE BLOOD COUNT 6.1 K/UL (4.8-10.8)
[2016-05-08 08:04] LABS: CALCIUM 9.5 mg/dL (8.6-10.2); CREATININE 8.9 mg/dL (0.7-1.2); GLOMERULAR FILTRATION RATE 7.4 mL/min (>60); POTASSIUM 5.9 mEQ/L (3.4-4.9)
[2016-05-08 08:42] VITALS: BP 117/47
[2016-05-08] MEDS: Lanthanum 1000mg tab ORAL SCH ×4 (09:00→18:12)
[2016-05-08] MEDS: Docusate 100mg cap ORAL SCH ×2 (09:04→18:11)
[2016-05-08] MEDS: VIRACEPT ORAL SCH ×2 (09:05→18:11)
[2016-05-08] MEDS: Renvela 800mg Pkt ORAL SCH ×3 (09:05→18:11)
[2016-05-08] MEDS: Vitamin A&D Oint 2oz Tube TOPIC SCH ×2 (09:05→21:00)
[2016-05-08] MEDS: Renvela 2400 mg pkt ORAL SCH ×3 (09:05→18:11)
[2016-05-08 12:11] VITALS: BP 130/50
--- NOTE | 2016-05-08 14:31 | General Progress Note ---
Assessment/Plan Problem List: (1) Shortness of breath ICD Codes: R06.02 - Shortness of breath SNOMED: 948645245 (2) Osteomyelitis ICD Codes: M86.9 - Osteomyelitis, unspecified SNOMED: 62115429 (3) Diabetes mellitus out of control ICD Codes: E11.65 - Type 2 diabetes mellitus with hyperglycemia SNOMED: 450320383 (4) Encounter for management of vacuum-assisted closure (VAC) of wound SNOMED: 994225400 (5) Ativan use disorder, mild ICD Codes: F13.10 - Sedative, hypnotic or anxiolytic abuse, uncomplicated SNOMED: 913548599 (6) Anemia ICD Codes: D64.9 - Anemia, unspecified SNOMED: 122035716 (7) Vascular disease ICD Codes: I99.9 - Unspecified disorder of circulatory system SNOMED: 43392490 (8) Sepsis ICD Codes: A41.9 - Sepsis, unspecified organism SNOMED: 40620239 (9) ESRD (end stage renal disease) ICD Codes: N18.6 - End stage renal disease SNOMED: 94842319 (10) HIV disease ICD Codes: B20 - Human immunodeficiency virus [HIV] disease SNOMED: 10565982 (11) Pain ICD Codes: R52 - Pain, unspecified SNOMED: 41724630 Status: stable, progressing, tolerating diet Assessment/Plan ot pt diet wound care abx per id cbc bmp in am Subjective Constitutional: Reports: weakness Allergies: Coded Allergies: HEPARIN (Verified Allergy, Severe, low platelets, 06/11/14) SULFA (SULFONAMIDE ANTIBIOTICS) (Verified Allergy, Severe, nephro toxic, ) ZOLPIDEM (Verified Allergy, Unknown, 05/03/16) MEROPENEM (Verified Adverse Reaction, Intermediate, 04/01/16) Nausea and vomiting Uncoded Allergies: pork products (Allergy, Severe, rashes, 06/11/14) All Systems: reviewed and negative except above Subjective o2nc calm in bed Objective Last 24 Hour Vital Signs Date Time Temp Pulse Resp B/P Pulse Ox O2 Delivery O2 Flow Rate FiO2 05/08/16 12:11 98.4 75 20 130/50 95 Nasal Cannula 2.0 05/08/16 10:12 98.0 05/08/16 09:05 66 117/47 05/08/16 09:04 66 117/47 05/08/16 08:42 98.0 66 20 117/47 98 Nasal Cannula 2.0 05/08/16 04:00 97.7 58 20 126/45 99 Nasal Cannula 3.0 05/08/16 00:00 98.5 60 20 121/51 98 Nasal Cannula 3.0 05/07/16 20:00 97.7 60 22 121/55 95 Nasal Cannula 3.0 05/07/16 19:30 Nasal Cannula 2.0 28 05/07/16 19:30 99 Nasal Cannula 2.0 28 05/07/16 16:00 97.2 62 20 105/58 94 Nasal Cannula 2.0 Intake and Output 05/07/16 05/08/16 19:00 07:00 Intake Total 460 ml 650 ml Output Total 1690 ml 100 ml Balance -1230 ml 550 ml Intake Oral 360 ml 600 ml IV Total 100 ml 50 ml Output Urine Total 100 ml Hemodialysis UF 1690 ml # Voids 2 # Bowel Movements 2 Laboratory Tests 05/07/16 15:00: White Blood Count 6.5, Red Blood Count 3.14L, Hemoglobin 9.6L, Hematocrit 32.4L , Mean Corpuscular Volume 103H, Mean Corpuscular Hemoglobin 30.7, Mean Corpuscular Hemoglobin Concent 29.7L, Red Cell Distribution Width 16.6H, Platelet Count 192, Mean Platelet Volume 8.8, Neutrophils (%) (Auto) 54.1, Lymphocytes (%) (Auto) 26.9, Monocytes (%) (Auto) 12.4H, Eosinophils (%) (Auto) 4.7H, Basophils (%) (Auto) 1.9, Hemoglobin A1c 4.3 05/08/16 05:20: White Blood Count 6.1, Red Blood Count 2.90L, Hemoglobin 8.9L, Hematocrit 29.7L , Mean Corpuscular Volume 102H, Mean Corpuscular Hemoglobin 30.6, Mean Corpuscular Hemoglobin Concent 29.9L, Red Cell Distribution Width 15.9H, Platelet Count 177, Mean Platelet Volume 8.1, Neutrophils (%) (Auto) 46.7, Lymphocytes (%) (Auto) 30.8, Monocytes (%) (Auto) 14.7H, Eosinophils (%) (Auto) 6.6H, Basophils (%) (Auto) 1.2, Sodium Level 134L, Potassium Level 5.9H, Chloride Level 90L, Carbon Dioxide Level 19L, Anion Gap 25H, Blood Urea Nitrogen 98H, Creatinine 8.9H, Estimat Glomerular Filtration Rate 7.4, Glucose Level 145H, Calcium Level 9.5 Height (Feet): 5 Height (Inches): 8.00 Weight (Pounds): 184 General Appearance: lethargic EENT: normal ENT inspection Neck: normal alignment Cardiovascular: normal peripheral pulses, normal rate, regular rhythm Respiratory/Chest: chest wall non-tender, lungs clear, normal breath sounds Abdomen: normal bowel sounds, non tender, soft Extremities: normal inspection Edema: no edema noted Arm (L), no edema noted Arm (R), no edema noted Leg (L), no edema noted Leg (R), no edema noted Pedal (L), no edema noted Pedal (R), no edema noted Generalized Neurologic: responsive, motor weakness Skin: normal pigmentation, warm/dry SNEHA PAIGE May 08, 2016 14:31
--- NOTE | 2016-05-08 15:50 | Podiatric Progress Note ---
Assessment/Plan Patient Lloyd Grigsby is a 60 year old male who was admitted on May 03, 2016 at 18:30 with Problems: Assessment/Plan A/ 1) Osteomyelitis left foot and right 2nd toe 2) Nonpressure ulcer right 2nd toe to level of bone 3) Nonpressure ulcer left foot (surgical) to level of muscle 4) Severe PVD - s/p intervention bilateral 5) DM 6) ESRD 7) Amputated toes left foot 8) Nonpressure ulcer submet head 5th right foot to subq P/ 1) Cont IV abx per ID 2) Was scheduled for right 2nd toe amp today but cancelled due to elevated potassium. Will reschedule for 05/15/2016 at 3pm. D/W and she understands and wishes to proceed. 3) Wound Nurse consulted for MWF VAC dressing changes to left foot 4) Cont heel protectors 5) Strict glycemic control for optimal wound healing Subjective Allergies: Coded Allergies: HEPARIN (Verified Allergy, Severe, low platelets, 06/11/14) SULFA (SULFONAMIDE ANTIBIOTICS) (Verified Allergy, Severe, nephro toxic, ) ZOLPIDEM (Verified Allergy, Unknown, 05/03/16) MEROPENEM (Verified Adverse Reaction, Intermediate, 04/01/16) Nausea and vomiting Uncoded Allergies: pork products (Allergy, Severe, rashes, 06/11/14) Subjective Patient is comfortable. No pain. is at bedside. Objective Exam Last 24 Hour Vital Signs Date Time Temp Pulse Resp B/P Pulse Ox O2 Delivery O2 Flow Rate FiO2 05/08/16 12:11 98.4 75 20 130/50 95 Nasal Cannula 2.0 05/08/16 10:12 98.0 05/08/16 09:05 66 117/47 05/08/16 09:04 66 117/47 05/08/16 08:42 98.0 66 20 117/47 98 Nasal Cannula 2.0 05/08/16 04:00 97.7 58 20 126/45 99 Nasal Cannula 3.0 05/08/16 00:00 98.5 60 20 121/51 98 Nasal Cannula 3.0 05/07/16 20:00 97.7 60 22 121/55 95 Nasal Cannula 3.0 05/07/16 19:30 Nasal Cannula 2.0 28 05/07/16 19:30 99 Nasal Cannula 2.0 28 05/07/16 16:00 97.2 62 20 105/58 94 Nasal Cannula 2.0 Laboratory Tests Test 05/08/16 05:20 White Blood Count 6.1 K/UL (4.8-10.8) Red Blood Count 2.90 M/UL (4.70-6.10) L Hemoglobin 8.9 G/DL (14.2-18.0) L Hematocrit 29.7 % (42.0-52.0) L Mean Corpuscular Volume 102 FL (80-99) H Mean Corpuscular Hemoglobin 30.6 PG (27.0-31.0) Mean Corpuscular Hemoglobin Concent 29.9 G/DL (32.0-36.0) L Red Cell Distribution Width 15.9 % (11.6-14.8) H Platelet Count 177 K/UL (150-450) Mean Platelet Volume 8.1 FL (6.5-10.1) Neutrophils (%) (Auto) 46.7 % (45.0-75.0) Lymphocytes (%) (Auto) 30.8 % (20.0-45.0) Monocytes (%) (Auto) 14.7 % (1.0-10.0) H Eosinophils (%) (Auto) 6.6 % (0.0-3.0) H Basophils (%) (Auto) 1.2 % (0.0-2.0) Sodium Level 134 mEQ/L (135-145) L Potassium Level 5.9 mEQ/L (3.4-4.9) H Chloride Level 90 mEQ/L (98-107) L Carbon Dioxide Level 19 mEQ/L (20-30) L Anion Gap 25 (5-15) H Blood Urea Nitrogen 98 mg/dL (7-23) H Creatinine 8.9 mg/dL (0.7-1.2) H Estimat Glomerular Filtration Rate 7.4 mL/min (>60) Glucose Level 145 mg/dL (74-106) H Calcium Level 9.5 mg/dL (8.6-10.2) Microbiology Date/Time Source Procedure Growth Status 05/04/16 00:30 Nasal Nares MRSA Culture - Final NO METHICILLIN RESISTANT STAPH AUREUS... Complete 05/04/16 00:30 Rectum VRE Culture - Final Enterococcus Faecium - Vre Complete Dermatological Wound Assessment : Exudate Amount: None Dermatological Narrative VAC operating well left foot Right foot unchanged Victor Hugo Blackburn DPM May 08, 2016 15:49
[2016-05-08 16:00] VITALS: BP 124/78
--- NOTE | 2016-05-08 16:32 | Nephrology Progress Note ---
Assessment/Plan Assessment 1.ESRD 2.WEN 3.PVD 4.HTN 5.anemia of ckd 6.HIV Plan PLAN to continue iv antibiotic dialysis today continue epogen continue renagel Subjective Constitutional: Reports: no symptoms HEENT: Reports: no symptoms Genitourinary: Reports: no symptoms Neurologic/Psychiatric: Reports: no symptoms Subjective alert and wake Objective Objective Last 24 Hour Vital Signs Date Time Temp Pulse Resp B/P Pulse Ox O2 Delivery O2 Flow Rate FiO2 05/08/16 12:11 98.4 75 20 130/50 95 Nasal Cannula 2.0 05/08/16 10:12 98.0 05/08/16 09:05 66 117/47 05/08/16 09:04 66 117/47 05/08/16 08:42 98.0 66 20 117/47 98 Nasal Cannula 2.0 05/08/16 04:00 97.7 58 20 126/45 99 Nasal Cannula 3.0 05/08/16 00:00 98.5 60 20 121/51 98 Nasal Cannula 3.0 05/07/16 20:00 97.7 60 22 121/55 95 Nasal Cannula 3.0 05/07/16 19:30 Nasal Cannula 2.0 28 05/07/16 19:30 99 Nasal Cannula 2.0 28 Intake and Output 05/07/16 05/08/16 19:00 07:00 Intake Total 460 ml 650 ml Output Total 1690 ml 100 ml Balance -1230 ml 550 ml Intake Oral 360 ml 600 ml IV Total 100 ml 50 ml Output Urine Total 100 ml Hemodialysis UF 1690 ml # Voids 2 # Bowel Movements 2 Laboratory Tests 05/08/16 05:20: White Blood Count 6.1, Red Blood Count 2.90L, Hemoglobin 8.9L, Hematocrit 29.7L , Mean Corpuscular Volume 102H, Mean Corpuscular Hemoglobin 30.6, Mean Corpuscular Hemoglobin Concent 29.9L, Red Cell Distribution Width 15.9H, Platelet Count 177, Mean Platelet Volume 8.1, Neutrophils (%) (Auto) 46.7, Lymphocytes (%) (Auto) 30.8, Monocytes (%) (Auto) 14.7H, Eosinophils (%) (Auto) 6.6H, Basophils (%) (Auto) 1.2, Sodium Level 134L, Potassium Level 5.9H, Chloride Level 90L, Carbon Dioxide Level 19L, Anion Gap 25H, Blood Urea Nitrogen 98H, Creatinine 8.9H, Estimat Glomerular Filtration Rate 7.4, Glucose Level 145H, Calcium Level 9.5 Height (Feet): 5 Height (Inches): 8.00 Weight (Pounds): 184 Objective HEAD AND NECK: No JVP. No LAD. No thyromegaly. Extraocular movement intact. Pupils are reactive to light and accommodation. LUNGS: Decreased breathing sound on the both sides. CARDIAC: Regular rate and rhythm. S1 and S2. No murmur. No rub. ABDOMEN: Soft, nontender, and nondistended. EXTREMITIES: Has left lower extremity ulceration, which at this time is on the right toe, which is under dressing. LB SON May 08, 2016 16:32
[2016-05-08 20:00] VITALS: BP 126/50
[2016-05-09] VITALS: BP 125/49
[2016-05-09] MEDS: HYDROmorphone 1mg/ml Carpuject IVP PRN ×5 (00:30→21:18)
[2016-05-09] MEDS: DiphenhydrAMINE 50mg/ml Inj IV SCH ×6 (00:30→23:24)
[2016-05-09 04:00] VITALS: BP 110/50
[2016-05-09] MEDS: Nateglinide 60mg tab ORAL SCH ×3 (06:04→17:24)
--- NOTE | 2016-05-09 06:55 | General Progress Note ---
Assessment/Plan Problem List: (1) Vascular disease ICD Codes: I99.9 - Unspecified disorder of circulatory system SNOMED: 17819696 (2) ESRD (end stage renal disease) ICD Codes: N18.6 - End stage renal disease SNOMED: 03439958 (3) HIV disease ICD Codes: B20 - Human immunodeficiency virus [HIV] disease SNOMED: 15403469 (4) Diabetes mellitus out of control ICD Codes: E11.65 - Type 2 diabetes mellitus with hyperglycemia SNOMED: 005494571 Assessment/Plan Starlix lower dose of 60 mg ac tid - hold if not eating Novolog sliding scale is in order Subjective Allergies: Coded Allergies: HEPARIN (Verified Allergy, Severe, low platelets, 06/11/14) SULFA (SULFONAMIDE ANTIBIOTICS) (Verified Allergy, Severe, nephro toxic, ) ZOLPIDEM (Verified Allergy, Unknown, 05/03/16) MEROPENEM (Verified Adverse Reaction, Intermediate, 04/01/16) Nausea and vomiting Uncoded Allergies: pork products (Allergy, Severe, rashes, 06/11/14) All Systems: reviewed and negative except above Subjective he is awake vascular procedure cancelled yesterday due to elevated K appetite is good Objective Last 24 Hour Vital Signs Date Time Temp Pulse Resp B/P Pulse Ox O2 Delivery O2 Flow Rate FiO2 05/09/16 04:31 98.6 05/09/16 04:31 98.6 05/09/16 04:00 98.6 70 18 110/50 95 Room Air 05/09/16 00:00 98.6 74 18 125/49 93 Nasal Cannula 2.0 05/08/16 23:46 96 Nasal Cannula 2.0 28 05/08/16 23:46 Nasal Cannula 2.0 28 05/08/16 20:00 98.2 79 21 126/50 98 Nasal Cannula 3.0 05/08/16 18:43 Room Air 2.0 28 05/08/16 16:00 97.3 70 23 124/78 100 Room Air 05/08/16 15:20 Nasal Cannula 2.0 28 05/08/16 12:11 98.4 75 20 130/50 95 Nasal Cannula 2.0 05/08/16 09:05 66 117/47 05/08/16 09:04 66 117/47 05/08/16 08:42 98.0 66 20 117/47 98 Nasal Cannula 2.0 Intake and Output 05/08/16 05/09/16 19:00 07:00 Intake Total 600 ml Output Total 2800 ml Balance -2800 ml 600 ml Intake Oral 600 ml Hemodialysis UF 2800 ml # Bowel Movements 1 Laboratory Tests 05/09/16 05:00: White Blood Count [Pending], Red Blood Count [Pending], Hemoglobin [Pending], Hematocrit [Pending], Mean Corpuscular Volume [Pending], Mean Corpuscular Hemoglobin [Pending], Mean Corpuscular Hemoglobin Concent [Pending], Red Cell Distribution Width [Pending], Platelet Count [Pending], Mean Platelet Volume [ Pending], Neutrophils (%) (Auto) [Pending], Lymphocytes (%) (Auto) [Pending], Monocytes (%) (Auto) [Pending], Eosinophils (%) (Auto) [Pending], Basophils (%) (Auto) [Pending], Sodium Level [Pending], Potassium Level [Pending], Chloride Level [Pending], Carbon Dioxide Level [Pending], Blood Urea Nitrogen [Pending], Creatinine [Pending], Estimat Glomerular Filtration Rate [Pending], Glucose Level [Pending], Calcium Level [Pending], Random Vancomycin Level [Pending] Height (Feet): 5 Height (Inches): 8.00 Weight (Pounds): 184 General Appearance: no apparent distress EENT: pale conjunctivae Neck: normal alignment Cardiovascular: normal peripheral pulses Respiratory/Chest: lungs clear Abdomen: normal bowel sounds Pelvis: normal external exam Extremities: other - both feet dressed Objective Current Medications Medications (Trade) Dose Ordered Sig/Zohaib Route PRN Reason Start Time Stop Time Status Last Admin Dose Admin Acetaminophen (Tylenol) 650 mg Q4HR PRN ORAL Prn Headache/Temp > 101 05/03/16 20:45 06/02/16 20:44 Clonidine HCl (Catapres) 0.1 mg EVERY 8 HOURS PRN ORAL SBP>160 05/03/16 20:45 06/02/16 20:44 Diphenhydramine HCl (Benadryl) 50 mg EVERY 6 HOURS IV 05/04/16 00:00 06/03/16 00:00 05/07/16 06:26 Docusate Sodium (Colace) 100 mg TWICE A DAY ORAL 05/04/16 09:00 06/03/16 08:59 05/08/16 18:11 Hydromorphone HCl (Dilaudid) 1 mg EVERY 4 HOURS PRN IVP Severe Pain (Pain Scale 7-10) 05/03/16 20:45 05/10/16 20:44 05/09/16 04:33 Lanthanum Carbonate (Fosrenol) 1,500 mg TID ORAL 05/04/16 09:00 06/03/16 08:59 05/08/16 18:12 Lorazepam (Ativan) 1 mg EVERY 6 HOURS PRN ORAL For Anxiety 05/03/16 20:45 05/10/16 20:44 Metoprolol Succinate (Toprol XL) 25 mg DAILY ORAL 05/03/16 21:00 06/02/16 20:59 05/08/16 09:04 Nateglinide (Starlix) 60 mg TIAC ORAL 05/07/16 11:30 06/06/16 11:29 05/09/16 06:04 Nifedipine (Procardia XL) 60 mg DAILY ORAL 05/04/16 09:00 06/03/16 08:59 05/08/16 09:05 Ondansetron HCl (Zofran) 4 mg Q6H PRN IV Nausea & Vomiting 05/03/16 20:45 06/02/16 20:44 Oxycodone/ Acetaminophen (Percocet 10/325) 1 tab Q4H PRN ORAL Breakthrough Pain 05/03/16 20:45 05/10/16 20:44 05/09/16 03:32 Patient Own Medication (Patient's Own Med) 1 ea Sa@1700 ORAL 05/05/16 17:00 06/04/16 16:59 05/05/16 16:44 Patient Own Medication (Patient's Own Med) 1 ea WeSa@1700 ORAL 05/05/16 17:00 06/04/16 16:59 05/05/16 16:44 Patient Own Medication (Patient's Own Med) 2 ea BID ORAL 05/04/16 09:00 06/03/16 08:59 05/08/16 18:11 Piperacillin Sod/ Tazobactam Sod/ Dextrose (Zosyn/D5W 50ml) 50 ml @ 100 mls/hr Q8HR IVPB 05/05/16 14:00 05/10/16 13:59 05/09/16 06:04 Polyethylene Glycol (Miralax) 17 gm DAILY PRN ORAL Constipation 05/03/16 20:45 06/02/16 20:44 Sevelamer Carbonate (Renvela) 800 mg TID ORAL 05/04/16 09:00 06/03/16 08:59 05/08/16 18:11 Sevelamer Carbonate (Renvela) 2,400 mg THREE TIMES A DAY ORAL 05/04/16 09:00 06/03/16 08:59 05/08/16 18:11 Vancomycin HCl 1 ea 1 ea DAILY PRN MISC Per rx protocol 05/05/16 13:00 06/04/16 12:59 Vitamin A/Vitamin D (A & D Oint) 1 applic Q12HR TOPIC 05/04/16 12:00 06/03/16 11:59 05/08/16 09:05 Item Value Date Time Bedside Blood Glucose 172 mg/dl H 05/09/16 0651 Bedside Blood Glucose 213 mg/dl H 05/08/16 2258 Bedside Blood Glucose 103 mg/dl 05/08/16 1630 Bedside Blood Glucose 74 mg/dl 05/08/16 1130 DO CERDA May 09, 2016 06:55
[2016-05-09 07:15] LABS: CREATININE 7.1 mg/dL (0.7-1.2); GLOMERULAR FILTRATION RATE 9.6 mL/min (>60)
[2016-05-09 07:18] LABS: MEAN CORPUSCULAR HEMOGLOBIN 30.9 PG (27.0-31.0); MEAN CORPUSCULAR HGB CONC 29.6 G/DL (32.0-36.0); MEAN CORPUSCULAR VOLUME 105 FL (80-99); MEAN PLATELET VOLUME 8.5 FL (6.5-10.1); PLATELET COUNT 157 K/UL (150-450); RED BLOOD COUNT 2.41 M/UL (4.70-6.10); RED CELL DISTRIBUTION WIDTH 15.8 % (11.6-14.8); WHITE BLOOD COUNT 3.9 K/UL (4.8-10.8)
[2016-05-09 08:43] VITALS: BP 130/40
[2016-05-09 09:00] LABS: ANISOCYTOSIS 1+; BAND NEUTROPHILS % (MANUAL) 0 % (0-8); BASOPHILS % (MANUAL) 0 % (0-2); EOSINOPHILS % (MANUAL) 9 % (0-3); HYPOCHROMASIA 1+; LYMPHOCYTES % (MANUAL) 44 % (20-45); MACROCYTES 1+; NEUTROPHILS % (MANUAL) 35 % (45-75); PLATELET ESTIMATE ADEQUATE; PLATELET MORPHOLOGY NORMAL; TOTAL CELLS COUNTED 100
[2016-05-09] MEDS: Vitamin A&D Oint 2oz Tube TOPIC SCH ×2 (09:00→21:07)
[2016-05-09] MEDS: Lanthanum 1000mg tab ORAL SCH ×3 (09:00→17:32)
[2016-05-09] MEDS: Renvela 2400 mg pkt ORAL SCH ×3 (10:17→17:30)
[2016-05-09] MEDS: Docusate 100mg cap ORAL SCH ×2 (10:17→17:30)
[2016-05-09] MEDS: VIRACEPT ORAL SCH ×2 (10:17→17:31)
[2016-05-09] MEDS: Renvela 800mg Pkt ORAL SCH ×3 (10:17→17:30)
[2016-05-09 12:05] VITALS: BP 133/42
--- NOTE | 2016-05-09 13:01 | Wound Nurse Progress Note ---
Wound RN Progress Note Wound Consult upon assessment noted wound bed 100% ,moderate serosanguineous drainage, no foul odor noted, no s/s of infection. wound vac dressing changed, tolerated well, no c/o pain to site upon change of dressing. dressing intact, flowing well with suction in place,no leakage present. 1 piece foam used. DANNA ALEGRE May 09, 2016 13:01
--- NOTE | 2016-05-09 15:22 | General Progress Note ---
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, hypnotic or anxiolytic abuse, uncomplicated SNOMED: 638272389 (6) Anemia ICD Codes: D64.9 - Anemia, unspecified SNOMED: 031898898 (7) Vascular disease ICD Codes: I99.9 - Unspecified disorder of circulatory system SNOMED: 52433697 (8) Sepsis ICD Codes: A41.9 - Sepsis, unspecified organism SNOMED: 36611138 (9) ESRD (end stage renal disease) ICD Codes: N18.6 - End stage renal disease SNOMED: 18171041 (10) HIV disease ICD Codes: B20 - Human immunodeficiency virus [HIV] disease SNOMED: 23870437 (11) Pain ICD Codes: R52 - Pain, unspecified SNOMED: 67979721 Status: stable, progressing, tolerating diet Assessment/Plan ot pt diet wound care abx per id cbc bmp in am Subjective Constitutional: Reports: weakness Allergies: Coded Allergies: HEPARIN (Verified Allergy, Severe, low platelets, 06/11/14) SULFA (SULFONAMIDE ANTIBIOTICS) (Verified Allergy, Severe, nephro toxic, ) ZOLPIDEM (Verified Allergy, Unknown, 05/03/16) MEROPENEM (Verified Adverse Reaction, Intermediate, 04/01/16) Nausea and vomiting Uncoded Allergies: pork products (Allergy, Severe, rashes, 06/11/14) All Systems: reviewed and negative except above Subjective o2nc calm in bed Objective Last 24 Hour Vital Signs Date Time Temp Pulse Resp B/P Pulse Ox O2 Delivery O2 Flow Rate FiO2 05/09/16 14:10 Nasal Cannula 2.0 28 05/09/16 13:04 98.2 05/09/16 12:05 98.1 75 20 133/42 97 Nasal Cannula 2.0 05/09/16 11:30 Nasal Cannula 2.0 28 05/09/16 11:08 98.2 05/09/16 10:17 76 130/40 05/09/16 10:17 76 130/40 05/09/16 08:43 98.2 76 20 130/40 98 Nasal Cannula 2.0 05/09/16 04:00 98.6 70 18 110/50 95 Room Air 05/09/16 00:00 98.6 74 18 125/49 93 Nasal Cannula 2.0 05/08/16 23:46 96 Nasal Cannula 2.0 28 05/08/16 23:46 Nasal Cannula 2.0 28 05/08/16 20:00 98.2 79 21 126/50 98 Nasal Cannula 3.0 05/08/16 18:43 Room Air 2.0 28 05/08/16 16:00 97.3 70 23 124/78 100 Room Air 05/08/16 15:20 Nasal Cannula 2.0 28 Intake and Output 05/08/16 05/09/16 19:00 07:00 Intake Total 600 ml Output Total 2800 ml Balance -2800 ml 600 ml Intake Oral 600 ml Hemodialysis UF 2800 ml # Bowel Movements 1 Laboratory Tests 05/09/16 05:00: White Blood Count 3.9L, Red Blood Count 2.41L, Hemoglobin 7.5L, Hematocrit 25.2L , Mean Corpuscular Volume 105H, Mean Corpuscular Hemoglobin 30.9, Mean Corpuscular Hemoglobin Concent 29.6L, Red Cell Distribution Width 15.8H, Platelet Count 157, Mean Platelet Volume 8.5, Neutrophils (%) (Auto) , Lymphocytes (%) (Auto) , Monocytes (%) (Auto) , Eosinophils (%) (Auto) , Basophils (%) (Auto) , Differential Total Cells Counted 100, Neutrophils % ( Manual) 35L, Lymphocytes % (Manual) 44, Monocytes % (Manual) 12H, Eosinophils % (Manual) 9H, Basophils % (Manual) 0, Band Neutrophils 0, Platelet Estimate Adequate, Platelet Morphology Normal, Hypochromasia 1+, Anisocytosis 1+, Macrocytosis 1+, Sodium Level 139, Potassium Level 5.0H, Chloride Level 98, Carbon Dioxide Level 21, Anion Gap 20H, Blood Urea Nitrogen 75H, Creatinine 7.1H , Estimat Glomerular Filtration Rate 9.6, Glucose Level 165H, Calcium Level 9.0 , Random Vancomycin Level 24.5 Height (Feet): 5 Height (Inches): 8.00 Weight (Pounds): 184 General Appearance: lethargic EENT: normal ENT inspection Neck: normal alignment Cardiovascular: normal peripheral pulses, normal rate, regular rhythm Respiratory/Chest: chest wall non-tender, lungs clear, normal breath sounds Abdomen: normal bowel sounds, non tender, soft Extremities: non-tender Edema: no edema noted Arm (L), no edema noted Arm (R), no edema noted Leg (L), no edema noted Leg (R), no edema noted Pedal (L), no edema noted Pedal (R), no edema noted Generalized Neurologic: responsive, motor weakness Skin: normal pigmentation, warm/dry SNEHA PAIGE May 09, 2016 15:22
--- NOTE | 2016-05-09 16:20 | Nephrology Progress Note ---
Assessment/Plan Assessment 1.ESRD 2.WEN 3.PVD 4.HTN 5.anemia of ckd 6.HIV Plan PLAN to continue iv antibiotic dialysis today continue epogen continue renagel Subjective Constitutional: Reports: no symptoms HEENT: Reports: no symptoms Genitourinary: Reports: no symptoms Neurologic/Psychiatric: Reports: no symptoms Subjective alert and wake Objective Objective Last 24 Hour Vital Signs Date Time Temp Pulse Resp B/P Pulse Ox O2 Delivery O2 Flow Rate FiO2 05/09/16 15:32 98.2 05/09/16 14:10 Nasal Cannula 2.0 28 05/09/16 13:04 98.2 05/09/16 12:05 98.1 75 20 133/42 97 Nasal Cannula 2.0 05/09/16 11:30 Nasal Cannula 2.0 28 05/09/16 10:17 76 130/40 05/09/16 10:17 76 130/40 05/09/16 08:43 98.2 76 20 130/40 98 Nasal Cannula 2.0 05/09/16 04:00 98.6 70 18 110/50 95 Room Air 05/09/16 00:00 98.6 74 18 125/49 93 Nasal Cannula 2.0 05/08/16 23:46 96 Nasal Cannula 2.0 28 05/08/16 23:46 Nasal Cannula 2.0 28 05/08/16 20:00 98.2 79 21 126/50 98 Nasal Cannula 3.0 05/08/16 18:43 Room Air 2.0 28 Intake and Output 05/08/16 05/09/16 19:00 07:00 Intake Total 600 ml Output Total 2800 ml Balance -2800 ml 600 ml Intake Oral 600 ml Hemodialysis UF 2800 ml # Bowel Movements 1 Laboratory Tests 05/09/16 05:00: White Blood Count 3.9L, Red Blood Count 2.41L, Hemoglobin 7.5L, Hematocrit 25.2L , Mean Corpuscular Volume 105H, Mean Corpuscular Hemoglobin 30.9, Mean Corpuscular Hemoglobin Concent 29.6L, Red Cell Distribution Width 15.8H, Platelet Count 157, Mean Platelet Volume 8.5, Neutrophils (%) (Auto) , Lymphocytes (%) (Auto) , Monocytes (%) (Auto) , Eosinophils (%) (Auto) , Basophils (%) (Auto) , Differential Total Cells Counted 100, Neutrophils % ( Manual) 35L, Lymphocytes % (Manual) 44, Monocytes % (Manual) 12H, Eosinophils % (Manual) 9H, Basophils % (Manual) 0, Band Neutrophils 0, Platelet Estimate Adequate, Platelet Morphology Normal, Hypochromasia 1+, Anisocytosis 1+, Macrocytosis 1+, Sodium Level 139, Potassium Level 5.0H, Chloride Level 98, Carbon Dioxide Level 21, Anion Gap 20H, Blood Urea Nitrogen 75H, Creatinine 7.1H , Estimat Glomerular Filtration Rate 9.6, Glucose Level 165H, Calcium Level 9.0 , Random Vancomycin Level 24.5 Height (Feet): 5 Height (Inches): 8.00 Weight (Pounds): 184 Objective HEAD AND NECK: No JVP. No LAD. No thyromegaly. Extraocular movement intact. Pupils are reactive to light and accommodation. LUNGS: Decreased breathing sound on the both sides. CARDIAC: Regular rate and rhythm. S1 and S2. No murmur. No rub. ABDOMEN: Soft, nontender, and nondistended. EXTREMITIES: Has left lower extremity ulceration, which at this time is on the right toe, which is under dressing. LB SON May 09, 2016 16:20
[2016-05-09 16:38] VITALS: BP 150/59
[2016-05-09] MEDS: EMTRICITABINE 200 MG ORAL SCH (17:35)
--- NOTE | 2016-05-09 17:52 | Infectious Diseases Prog Note ---
Assessment/Plan Assessment/Plan ASSESSMENT AND PLAN: 1. esbl e.coli/likely polymicrobial left foot wound infection with osteomyelitis and right foot 2nd toe osteo/wound - s/p debridement of left foot , s/p left leg revascularization - zosyn and vancomycin for another 12 day (total 6 week abx course) - watch labs and sed rate - wound culture of left foot and [facility] - amputation of right 2nd toe planned - patient with line access - ? mid line vs picc line, per nursing it is a picc line - wound vac left foot 2. Wound care per podiatry and surgery 3. End-stage renal disease on hemodialysis, treatment per Renal. 4. Diabetes. 5. Hypertension. 6. Blood sugar and blood pressure control per primary. 7. Human immunodeficiency virus. 8. Antiviral therapy. 9. Human immunodeficiency virus therapy per Dr. Chinchilla as an outpatient - f/u with Dr. chinchilla 10. Anemia. 11. Peripheral vascular disease. 12. Gastrointestinal disease. 13. Fistula. 14. Neurologic disease, VAD. 15. Transient ischemic attack. 16. Weakness. 17. Seizures. 18. Left ventricular hypertrophy. 19. Atrial septal defect. 20. Coagulopathy, hematological disorder. 21. Past medical history as noted. 22. Allergies to sulfa, pork and heparin, -de 23. Case was discussed with the patient 24. wound care per protocol 25. Case was discussed with RN. 26. Notes and records were reviewed. 27. MAR was noted. 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 Subjective Constitutional: Denies: fever HEENT: Denies: congestion Respiratory: Denies: shortness of breath Cardiovascular: Denies: chest pain Gastrointestinal/Abdominal: Denies: diarrhea, nausea, vomiting Genitourinary: Reports: other - + hd, no agarwal Neurologic: Denies: headache Psychiatric: Denies: depression Skin: Denies: rash Musculoskeletal: Denies: pain Allergies: Coded Allergies: HEPARIN (Verified Allergy, Severe, low platelets, 06/11/14) SULFA (SULFONAMIDE ANTIBIOTICS) (Verified Allergy, Severe, nephro toxic, ) ZOLPIDEM (Verified Allergy, Unknown, 05/03/16) MEROPENEM (Verified Adverse Reaction, Intermediate, 04/01/16) Nausea and vomiting Uncoded Allergies: pork products (Allergy, Severe, rashes, 06/11/14) Objective Vital Signs Last 24 Hour Vital Signs Date Time Temp Pulse Resp B/P Pulse Ox O2 Delivery O2 Flow Rate FiO2 05/09/16 16:38 98.5 84 20 150/59 97 Nasal Cannula 2.0 05/09/16 16:25 Room Air 2.0 28 05/09/16 15:32 98.2 05/09/16 14:10 Nasal Cannula 2.0 28 05/09/16 13:04 98.2 05/09/16 12:05 98.1 75 20 133/42 97 Nasal Cannula 2.0 05/09/16 11:30 Nasal Cannula 2.0 28 05/09/16 10:17 76 130/40 05/09/16 10:17 76 130/40 05/09/16 08:43 98.2 76 20 130/40 98 Nasal Cannula 2.0 05/09/16 04:00 98.6 70 18 110/50 95 Room Air 05/09/16 00:00 98.6 74 18 125/49 93 Nasal Cannula 2.0 05/08/16 23:46 96 Nasal Cannula 2.0 28 05/08/16 23:46 Nasal Cannula 2.0 28 05/08/16 20:00 98.2 79 21 126/50 98 Nasal Cannula 3.0 05/08/16 18:43 Room Air 2.0 28 Height (Feet): 5 Height (Inches): 8.00 Weight (Pounds): 184 General Appearance: no acute distress HEENT: normocephalic, atraumatic, anicteric, mucous membranes moist, PERRL, EOMI, pharynx normal, supple, no JVD Respiratory/Chest: lungs clear, normal breath sounds, no respiratory distress, no accessory muscle use Cardiovascular: normal rate, regular rhythm, no gallop/murmur, no JVD Abdomen: normal bowel sounds, soft, non tender, no organomegaly, non distended Genitourinary: other - + agarwal Extremities: other - + wound vac left foot, right foot covered Skin: no rash 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 Complete 05/04/16 00:30 Rectum VRE Culture - Final Enterococcus Faecium - Vre Complete Laboratory Tests Test 05/09/16 05:00 White Blood Count 3.9 K/UL (4.8-10.8) L Red Blood Count 2.41 M/UL (4.70-6.10) L Hemoglobin 7.5 G/DL (14.2-18.0) L Hematocrit 25.2 % (42.0-52.0) L Mean Corpuscular Volume 105 FL (80-99) H Mean Corpuscular Hemoglobin 30.9 PG (27.0-31.0) Mean Corpuscular Hemoglobin Concent 29.6 G/DL (32.0-36.0) L Red Cell Distribution Width 15.8 % (11.6-14.8) H Platelet Count 157 K/UL (150-450) Mean Platelet Volume 8.5 FL (6.5-10.1) Neutrophils (%) (Auto) % (45.0-75.0) Lymphocytes (%) (Auto) % (20.0-45.0) Monocytes (%) (Auto) % (1.0-10.0) Eosinophils (%) (Auto) % (0.0-3.0) Basophils (%) (Auto) % (0.0-2.0) Differential Total Cells Counted 100 Neutrophils % (Manual) 35 % (45-75) L Lymphocytes % (Manual) 44 % (20-45) Monocytes % (Manual) 12 % (1-10) H Eosinophils % (Manual) 9 % (0-3) H Basophils % (Manual) 0 % (0-2) Band Neutrophils 0 % (0-8) Platelet Estimate Adequate Platelet Morphology Normal Hypochromasia 1+ Anisocytosis 1+ Macrocytosis 1+ Sodium Level 139 mEQ/L (135-145) Potassium Level 5.0 mEQ/L (3.4-4.9) H Chloride Level 98 mEQ/L (98-107) Carbon Dioxide Level 21 mEQ/L (20-30) Anion Gap 20 (5-15) H Blood Urea Nitrogen 75 mg/dL (7-23) H Creatinine 7.1 mg/dL (0.7-1.2) H Estimat Glomerular Filtration Rate 9.6 mL/min (>60) Glucose Level 165 mg/dL (74-106) H Calcium Level 9.0 mg/dL (8.6-10.2) Random Vancomycin Level 24.5 ug/mL Current Medications Medications (Trade) Dose Ordered Sig/Zohaib Route PRN Reason Start Time Stop Time Status Last Admin Dose Admin Acetaminophen (Tylenol) 650 mg Q4HR PRN ORAL Prn Headache/Temp > 101 05/03/16 20:45 06/02/16 20:44 Clonidine HCl (Catapres) 0.1 mg EVERY 8 HOURS PRN ORAL SBP>160 05/03/16 20:45 06/02/16 20:44 Diphenhydramine HCl (Benadryl) 50 mg EVERY 6 HOURS IV 05/04/16 00:00 06/03/16 00:00 05/07/16 06:26 Docusate Sodium (Colace) 100 mg TWICE A DAY ORAL 05/04/16 09:00 06/03/16 08:59 05/09/16 17:30 Hydromorphone HCl (Dilaudid) 1 mg EVERY 4 HOURS PRN IVP Severe Pain (Pain Scale 7-10) 05/03/16 20:45 05/10/16 20:44 05/09/16 15:02 Lanthanum Carbonate (Fosrenol) 1,500 mg TID ORAL 05/04/16 09:00 06/03/16 08:59 05/08/16 18:12 Lorazepam (Ativan) 1 mg EVERY 6 HOURS PRN ORAL For Anxiety 05/03/16 20:45 05/10/16 20:44 Metoprolol Succinate (Toprol XL) 25 mg DAILY ORAL 05/03/16 21:00 06/02/16 20:59 05/09/16 10:17 Nateglinide (Starlix) 60 mg TIAC ORAL 05/07/16 11:30 06/06/16 11:29 05/09/16 17:24 Nifedipine (Procardia XL) 60 mg DAILY ORAL 05/04/16 09:00 06/03/16 08:59 05/09/16 10:17 Ondansetron HCl (Zofran) 4 mg Q6H PRN IV Nausea & Vomiting 05/03/16 20:45 06/02/16 20:44 Oxycodone/ Acetaminophen (Percocet 10/325) 1 tab Q4H PRN ORAL Breakthrough Pain 05/03/16 20:45 05/10/16 20:44 05/09/16 12:05 Patient Own Medication (Patient's Own Med) 1 ea Sa@1700 ORAL 05/05/16 17:00 06/04/16 16:59 05/05/16 16:44 Patient Own Medication (Patient's Own Med) 1 ea WeSa@1700 ORAL 05/05/16 17:00 06/04/16 16:59 05/09/16 17:35 Patient Own Medication (Patient's Own Med) 2 ea BID ORAL 05/04/16 09:00 06/03/16 08:59 05/09/16 17:31 Piperacillin Sod/ Tazobactam Sod/ Dextrose (Zosyn/D5W 50ml) 50 ml @ 100 mls/hr Q8HR IVPB 05/05/16 14:00 05/13/16 13:59 05/09/16 15:05 Polyethylene Glycol (Miralax) 17 gm DAILY PRN ORAL Constipation 05/03/16 20:45 06/02/16 20:44 Sevelamer Carbonate (Renvela) 800 mg TID ORAL 05/04/16 09:00 06/03/16 08:59 05/09/16 17:30 Sevelamer Carbonate (Renvela) 2,400 mg THREE TIMES A DAY ORAL 05/04/16 09:00 06/03/16 08:59 05/09/16 17:30 Vancomycin HCl 1 ea 1 ea DAILY PRN MISC Per rx protocol 05/05/16 13:00 06/04/16 12:59 Vitamin A/Vitamin D (A & D Oint) 1 applic Q12HR TOPIC 05/04/16 12:00 06/03/16 11:59 05/09/16 09:00 INOCENCIA DOS SANTOS May 09, 2016 17:52
[2016-05-09] MEDS ORDERED: NS 550ML IV ONE (18:33)
[2016-05-09] MEDS ORDERED: Tubing Blood Filter IV ONE (18:33)
[2016-05-09 20:00] VITALS: BP 154/70
[2016-05-09] MEDS ORDERED: Epogen (for ESRD on dialysis) SUBQ SCH (21:00)
[2016-05-10] VITALS (8 sets, daily range): BP systolic 121–150; BP diastolic 39–55
[2016-05-10] MEDS: HYDROmorphone 1mg/ml Carpuject IVP PRN ×5 (02:41→20:20)
--- NOTE | 2016-05-10 03:27 | Consultation ---
DATE OF CONSULTATION: 05/09/2016 HEMATOLOGY/ONCOLOGY CONSULTATION REQUESTING PHYSICIAN: Louis Barahona M.D. REASON FOR CONSULTATION: Evaluation of anemia and leukopenia as well. IDENTIFICATION: Dear Dr. Louis Barahona, The patient is a pleasant 60-year-old male with a past medical history, significant for left ventricular hypertrophy, atrial septal defect, coagulopathy, HIV, hypertension, diabetes mellitus, end-stage renal disease, on hemodialysis, , at this time presents to [facility] with recent revascularization to the left lower extremity, which was done successfully and transferred by antibiotics, amputation and wound debridement. The patient was seen by Vascular Surgery as well as ID and Nephrology service reviewed. The patient leukopenia as well as anemia. Hematology service is consulted for further evaluation and treatment. PAST MEDICAL HISTORY: Diabetes mellitus, hypertension, HIV, end-stage renal disease, anemia of chronic disease, renal osteodystrophy, peripheral vascular disease, left foot wound and partial amputation, hemorrhagic telangiectasia, and history of revascularization. PAST SURGICAL HISTORY: AV fistula placement. MEDICATIONS: Medications have been reviewed. ALLERGIES: To heparin, sulfa, and pork. SOCIAL HISTORY: Lives at home with . Multiple hospital admissions and . REVIEW OF SYSTEMS: Constitutional: No fevers, chills, or night sweats. Skin: No rashes, lumps, or itching. HEENT: No headache or vision changes. Breasts: No lumps, pain, or discharge. Pulmonary: No cough, sputum, or shortness of breath. Cardiovascular: No chest pain, tightness, or palpitations. Gastrointestinal: No nausea, vomiting, or diarrhea. Genitourinary: No dysuria, frequency, or urgency. Musculoskeletal: No joint swelling or muscle pain. Neurological: No dizziness, fainting, or seizures. PHYSICAL EXAMINATION: GENERAL: The patient is in no acute distress. VITAL SIGNS: Temperature is 98.5 degrees Fahrenheit , pulse 84, respiratory rate 20, blood pressure 150/59, and pulse oximetry 97%. PULMONARY: Decreased breath sounds. CARDIOVASCULAR: Regular rate and rhythm. ABDOMEN: Soft, nontender, and nondistended. EXTREMITIES: A 1+ edema. LABORATORY AND DIAGNOSTIC DATA: WBC , hemoglobin 7.5, hematocrit 25, and platelet count 157,000. ESR of 105. Chemistry, BUN 88, creatinine 7.5. INR of 1. Toxicology reviewed with vancomycin . ASSESSMENT: 1. Anemia. 2. Decreased hemoglobin and hematocrit, rule out gastrointestinal bleed. 3. Leukopenia, secondary to . 4. medications, which will be reviewed. 5. Human immunodeficiency virus/acquired immunodeficiency syndrome. 6. Hypertension. 7. Diabetes mellitus. 8. End-stage renal disease, on hemodialysis. 9. Peripheral vascular disease. 10. disease. 11. Neurological disease. RECOMMENDATIONS: 1. Monitor counts. 2. Transfuse as needed. 3. . 4. Begin the patient on Epogen . 5. anemia workup on the patient. 6. The patient has a ferritin , iron status has been repleted. 7. Continue with hemodialysis as per Nephrology service. 8. . 9. The patient with allergy to heparin. 10. DVT prophylaxis with SCDs. 11. GI prophylaxis as needed. 12. Pain control. 13. Blood pressure control. 14. Peripheral smear has been ordered. Per pharmacy consult, please review medications as well. Thank you, Dr. Louis Barahona, for this kind referral. Please do not hesitate to contact me if you have any further questions. Matt Shepherd M.D. DR: LUCA JOB#: [id number] CC:
[2016-05-10] MEDS: DiphenhydrAMINE 50mg/ml Inj IV SCH ×3 (05:39→17:04)
[2016-05-10] MEDS: Nateglinide 60mg tab ORAL SCH ×3 (05:52→17:03)
[2016-05-10 07:50] LABS: BASOPHILS % (AUTO) 1.5 % (0.0-2.0); EOSINOPHILS % (AUTO) 8.8 % (0.0-3.0); LYMPHOCYTES % (AUTO) 38.2 % (20.0-45.0); MEAN CORPUSCULAR HEMOGLOBIN 31.2 PG (27.0-31.0); MEAN CORPUSCULAR HGB CONC 31.9 G/DL (32.0-36.0); MEAN CORPUSCULAR VOLUME 98 FL (80-99); MEAN PLATELET VOLUME 8.4 FL (6.5-10.1); MONOCYTES % (AUTO) 19.1 % (1.0-10.0); NEUTROPHILS % (AUTO) 32.4 % (45.0-75.0); PLATELET COUNT 149 K/UL (150-450); RED BLOOD COUNT 3.21 M/UL (4.70-6.10); RED CELL DISTRIBUTION WIDTH 16.7 % (11.6-14.8); WHITE BLOOD COUNT 4.1 K/UL (4.8-10.8)
[2016-05-10 07:51] LABS: OTHERS PATHOLOGIST COMMENT
[2016-05-10 07:59] LABS: CALCIUM 9.7 mg/dL (8.6-10.2); GLOMERULAR FILTRATION RATE 11.6 mL/min (>60); POTASSIUM 4.3 mEQ/L (3.4-4.9)
--- NOTE | 2016-05-10 08:58 | Nephrology Progress Note ---
Assessment/Plan Assessment 1.ESRD 2.WEN 3.PVD 4.HTN 5.anemia of ckd 6.HIV Plan PLAN to continue iv antibiotic amputation dialysis today continue epogen continue renagel Subjective Constitutional: Reports: no symptoms HEENT: Reports: no symptoms Genitourinary: Reports: no symptoms Neurologic/Psychiatric: Reports: no symptoms Subjective alert and wake Objective Objective Last 24 Hour Vital Signs Date Time Temp Pulse Resp B/P Pulse Ox O2 Delivery O2 Flow Rate FiO2 05/10/16 08:26 97.5 69 20 150/55 96 Room Air 05/10/16 07:25 Nasal Cannula 2.0 28 05/10/16 07:25 96 Nasal Cannula 2.0 28 05/10/16 07:20 97.3 05/10/16 04:00 97.3 68 18 128/52 97 Room Air 05/10/16 00:00 98.4 59 18 131/48 97 Room Air 05/09/16 20:00 Nasal Cannula 2.0 28 05/09/16 20:00 98.4 75 20 154/70 99 Room Air 05/09/16 20:00 97 Nasal Cannula 2.0 28 05/09/16 16:38 98.5 84 20 150/59 97 Nasal Cannula 2.0 05/09/16 16:25 Room Air 2.0 28 05/09/16 14:10 Nasal Cannula 2.0 28 05/09/16 13:04 98.2 05/09/16 12:05 98.1 75 20 133/42 97 Nasal Cannula 2.0 05/09/16 11:30 Nasal Cannula 2.0 28 05/09/16 10:17 76 130/40 05/09/16 10:17 76 130/40 Intake and Output 05/09/16 05/10/16 19:00 07:00 Intake Total 1060 ml 710 ml Output Total 2600 ml Balance -1540 ml 710 ml Intake Oral 960 ml 610 ml IV Total 100 ml 100 ml Hemodialysis UF 2600 ml # Bowel Movements 2 1 Laboratory Tests 05/10/16 05:30: White Blood Count 4.1L, Red Blood Count 3.21L, Hemoglobin 10.0#L, Hematocrit 31.4L, Mean Corpuscular Volume 98, Mean Corpuscular Hemoglobin 31.2H, Mean Corpuscular Hemoglobin Concent 31.9L, Red Cell Distribution Width 16.7H, Platelet Count 149L, Mean Platelet Volume 8.4, Neutrophils (%) (Auto) 32.4L, Lymphocytes (%) (Auto) 38.2, Monocytes (%) (Auto) 19.1H, Eosinophils (%) (Auto) 8.8H, Basophils (%) (Auto) 1.5, Sodium Level 141, Potassium Level 4.3, Chloride Level 98, Carbon Dioxide Level 23, Anion Gap 20H, Blood Urea Nitrogen 62H, Creatinine 6.0H, Estimat Glomerular Filtration Rate 11.6, Glucose Level 108H, Calcium Level 9.7 Height (Feet): 5 Height (Inches): 8.00 Weight (Pounds): 184 Objective HEAD AND NECK: No JVP. No LAD. No thyromegaly. Extraocular movement intact. Pupils are reactive to light and accommodation. LUNGS: Decreased breathing sound on the both sides. CARDIAC: Regular rate and rhythm. S1 and S2. No murmur. No rub. ABDOMEN: Soft, nontender, and nondistended. EXTREMITIES: Has left lower extremity ulceration, which at this time is on the right toe, which is under dressing. LB SON May 10, 2016 08:58
[2016-05-10] MEDS: Lanthanum 1000mg tab ORAL SCH ×3 (09:00→17:04)
[2016-05-10] MEDS: Docusate 100mg cap ORAL SCH ×2 (09:07→17:03)
[2016-05-10] MEDS: Renvela 2400 mg pkt ORAL SCH ×3 (09:08→17:04)
[2016-05-10] MEDS: Vitamin A&D Oint 2oz Tube TOPIC SCH ×2 (09:08→20:59)
[2016-05-10] MEDS: Renvela 800mg Pkt ORAL SCH ×3 (09:08→17:04)
[2016-05-10] MEDS: VIRACEPT ORAL SCH ×2 (10:26→17:04)
--- NOTE | 2016-05-10 14:52 | General Progress Note ---
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, hypnotic or anxiolytic abuse, uncomplicated SNOMED: 847232218 (6) Anemia ICD Codes: D64.9 - Anemia, unspecified SNOMED: 599253221 (7) Vascular disease ICD Codes: I99.9 - Unspecified disorder of circulatory system SNOMED: 89662646 (8) Sepsis ICD Codes: A41.9 - Sepsis, unspecified organism SNOMED: 83127711 (9) ESRD (end stage renal disease) ICD Codes: N18.6 - End stage renal disease SNOMED: 05377949 (10) HIV disease ICD Codes: B20 - Human immunodeficiency virus [HIV] disease SNOMED: 16802766 (11) Pain ICD Codes: R52 - Pain, unspecified SNOMED: 12556119 Status: stable, progressing, tolerating diet Assessment/Plan ot pt diet wound care abx per id cbc bmp in am Subjective Constitutional: Reports: weakness Allergies: Coded Allergies: HEPARIN (Verified Allergy, Severe, low platelets, 06/11/14) SULFA (SULFONAMIDE ANTIBIOTICS) (Verified Allergy, Severe, nephro toxic, ) ZOLPIDEM (Verified Allergy, Unknown, 05/03/16) MEROPENEM (Verified Adverse Reaction, Intermediate, 04/01/16) Nausea and vomiting Uncoded Allergies: pork products (Allergy, Severe, rashes, 06/11/14) All Systems: reviewed and negative except above Subjective o2nc calm in bed Objective Last 24 Hour Vital Signs Date Time Temp Pulse Resp B/P Pulse Ox O2 Delivery O2 Flow Rate FiO2 05/10/16 12:21 98.1 80 20 150/53 97 Room Air 05/10/16 12:05 97.5 05/10/16 11:25 97.5 05/10/16 09:08 69 150/55 05/10/16 09:07 69 150/55 05/10/16 08:26 97.5 69 20 150/55 96 Room Air 05/10/16 07:25 Nasal Cannula 2.0 28 05/10/16 07:25 96 Nasal Cannula 2.0 28 05/10/16 04:00 97.3 68 18 128/52 97 Room Air 05/10/16 00:00 98.4 59 18 131/48 97 Room Air 05/09/16 20:00 Nasal Cannula 2.0 28 05/09/16 20:00 98.4 75 20 154/70 99 Room Air 05/09/16 20:00 97 Nasal Cannula 2.0 28 05/09/16 16:38 98.5 84 20 150/59 97 Nasal Cannula 2.0 05/09/16 16:25 Room Air 2.0 28 Intake and Output 05/09/16 05/10/16 19:00 07:00 Intake Total 1060 ml 710 ml Output Total 2600 ml Balance -1540 ml 710 ml Intake Oral 960 ml 610 ml IV Total 100 ml 100 ml Hemodialysis UF 2600 ml # Bowel Movements 2 1 Laboratory Tests 05/10/16 05:30: White Blood Count 4.1L, Red Blood Count 3.21L, Hemoglobin 10.0#L, Hematocrit 31.4L, Mean Corpuscular Volume 98, Mean Corpuscular Hemoglobin 31.2H, Mean Corpuscular Hemoglobin Concent 31.9L, Red Cell Distribution Width 16.7H, Platelet Count 149L, Mean Platelet Volume 8.4, Neutrophils (%) (Auto) 32.4L, Lymphocytes (%) (Auto) 38.2, Monocytes (%) (Auto) 19.1H, Eosinophils (%) (Auto) 8.8H, Basophils (%) (Auto) 1.5, Sodium Level 141, Potassium Level 4.3, Chloride Level 98, Carbon Dioxide Level 23, Anion Gap 20H, Blood Urea Nitrogen 62H, Creatinine 6.0H, Estimat Glomerular Filtration Rate 11.6, Glucose Level 108H, Calcium Level 9.7 Height (Feet): 5 Height (Inches): 8.00 Weight (Pounds): 184 General Appearance: lethargic EENT: normal ENT inspection Neck: normal alignment Cardiovascular: normal peripheral pulses, normal rate, regular rhythm Respiratory/Chest: chest wall non-tender, lungs clear, normal breath sounds Abdomen: normal bowel sounds, non tender, soft Extremities: normal inspection Edema: no edema noted Arm (L), no edema noted Arm (R), no edema noted Leg (L), no edema noted Leg (R), no edema noted Pedal (L), no edema noted Pedal (R), no edema noted Generalized Neurologic: motor weakness Skin: normal pigmentation, warm/dry SNEHA PAIGE May 10, 2016 14:52
--- NOTE | 2016-05-10 17:24 | General Progress Note ---
Assessment/Plan Assessment/Plan ASSESSMENT: 1. Anemia secondary to chronic disease. 2. Anemia secondary to kidney disease. 3. Lymphadenopathy nonspecific, does not require biopsy at this time 4. Anemia, rule out gastrointestinal bleed. 5. End-stage renal disease, require HD 6. Diabetes mellitus. 7. Hyperkalemia. 8. Hypertension. 9. Peripheral vascular disease. RECOMMENDATIONS: 1. Monitor counts. 2. Transfuse as needed, hgb >8 goal. 3. Nephrology followup. HD per renal 4. Patient with left arm shunt 5. Continue Epogen. 6. Followup nephrology and ID recs 7. Anemia w/u reviewed, does not need require further iron 8. Questionable heparin allergy 9. Discussed with staff. Thank you, Matt Shepherd MD Subjective Constitutional: Reports: no symptoms HEENT: Reports: no symptoms Cardiovascular: Reports: no symptoms Respiratory: Reports: no symptoms Gastrointestinal/Abdominal: Reports: poor appetite Genitourinary: Reports: no symptoms Neurologic/Psychiatric: Reports: no symptoms Endocrine: Reports: no symptoms Hematologic/Lymphatic: Reports: anemia Allergies: Coded Allergies: HEPARIN (Verified Allergy, Severe, low platelets, 06/11/14) SULFA (SULFONAMIDE ANTIBIOTICS) (Verified Allergy, Severe, nephro toxic, ) ZOLPIDEM (Verified Allergy, Unknown, 05/03/16) MEROPENEM (Verified Adverse Reaction, Intermediate, 04/01/16) Nausea and vomiting Uncoded Allergies: pork products (Allergy, Severe, rashes, 06/11/14) Subjective stable, no fevers or chills or night sweats Objective Last 24 Hour Vital Signs Date Time Temp Pulse Resp B/P Pulse Ox O2 Delivery O2 Flow Rate FiO2 05/10/16 16:22 97.5 71 20 121/39 99 Room Air 05/10/16 16:15 Nasal Cannula 2.0 05/10/16 16:15 97.5 65 18 138/41 96 Nasal Cannula 2.0 05/10/16 13:10 Nasal Cannula 2.0 05/10/16 12:21 98.1 80 20 150/53 97 Room Air 05/10/16 12:05 97.5 05/10/16 11:25 97.5 05/10/16 09:08 69 150/55 05/10/16 09:07 69 150/55 05/10/16 08:26 97.5 69 20 150/55 96 Room Air 05/10/16 07:25 Nasal Cannula 2.0 28 05/10/16 07:25 96 Nasal Cannula 2.0 28 05/10/16 04:00 97.3 68 18 128/52 97 Room Air 05/10/16 00:00 98.4 59 18 131/48 97 Room Air 05/09/16 20:00 Nasal Cannula 2.0 28 05/09/16 20:00 98.4 75 20 154/70 99 Room Air 05/09/16 20:00 97 Nasal Cannula 2.0 28 Intake and Output 05/09/16 05/10/16 19:00 07:00 Intake Total 1060 ml 710 ml Output Total 2600 ml Balance -1540 ml 710 ml Intake Oral 960 ml 610 ml IV Total 100 ml 100 ml Hemodialysis UF 2600 ml # Bowel Movements 2 1 Laboratory Tests 05/10/16 05:30: White Blood Count 4.1L, Red Blood Count 3.21L, Hemoglobin 10.0#L, Hematocrit 31.4L, Mean Corpuscular Volume 98, Mean Corpuscular Hemoglobin 31.2H, Mean Corpuscular Hemoglobin Concent 31.9L, Red Cell Distribution Width 16.7H, Platelet Count 149L, Mean Platelet Volume 8.4, Neutrophils (%) (Auto) 32.4L, Lymphocytes (%) (Auto) 38.2, Monocytes (%) (Auto) 19.1H, Eosinophils (%) (Auto) 8.8H, Basophils (%) (Auto) 1.5, Sodium Level 141, Potassium Level 4.3, Chloride Level 98, Carbon Dioxide Level 23, Anion Gap 20H, Blood Urea Nitrogen 62H, Creatinine 6.0H, Estimat Glomerular Filtration Rate 11.6, Glucose Level 108H, Calcium Level 9.7 Height (Feet): 5 Height (Inches): 8.00 Weight (Pounds): 184 General Appearance: no apparent distress EENT: TMs normal Neck: supple Cardiovascular: regular rhythm Respiratory/Chest: lungs clear Abdomen: non tender Extremities: normal range of motion Edema: 1+ Leg (L), 1+ Leg (R) Edema: mild edema Neurologic: no motor/sensory deficits Skin: warm/dry Matt Shepherd May 10, 2016 17:24
[2016-05-11] MEDS: HYDROmorphone 1mg/ml Carpuject IVP PRN ×4 (01:22→19:19)
[2016-05-11 04:00] VITALS: BP 130/50
[2016-05-11] MEDS: DiphenhydrAMINE 50mg/ml Inj IV SCH ×5 (05:38→19:13)
[2016-05-11] MEDS: Nateglinide 60mg tab ORAL SCH ×3 (05:42→17:08)
--- NOTE | 2016-05-11 06:32 | General Progress Note ---
Assessment/Plan Problem List: (1) Vascular disease ICD Codes: I99.9 - Unspecified disorder of circulatory system SNOMED: 16821548 (2) ESRD (end stage renal disease) ICD Codes: N18.6 - End stage renal disease SNOMED: 31938581 (3) HIV disease ICD Codes: B20 - Human immunodeficiency virus [HIV] disease SNOMED: 46721199 (4) Diabetes mellitus out of control ICD Codes: E11.65 - Type 2 diabetes mellitus with hyperglycemia SNOMED: 285743851 Assessment/Plan continue with Starlix lower dose of 60 mg ac tid - hold if not eating Novolog sliding scale is in order Subjective Allergies: Coded Allergies: HEPARIN (Verified Allergy, Severe, low platelets, 06/11/14) SULFA (SULFONAMIDE ANTIBIOTICS) (Verified Allergy, Severe, nephro toxic, ) ZOLPIDEM (Verified Allergy, Unknown, 05/03/16) MEROPENEM (Verified Adverse Reaction, Intermediate, 04/01/16) Nausea and vomiting Uncoded Allergies: pork products (Allergy, Severe, rashes, 06/11/14) All Systems: reviewed and negative except above Subjective events noted Objective Last 24 Hour Vital Signs Date Time Temp Pulse Resp B/P Pulse Ox O2 Delivery O2 Flow Rate FiO2 05/11/16 04:00 97.9 66 18 130/50 95 Room Air 05/10/16 23:59 98.0 67 18 129/48 96 Room Air 05/10/16 20:00 98.1 69 18 134/41 97 Room Air 05/10/16 19:37 Nasal Cannula 2.0 28 05/10/16 19:37 97 Nasal Cannula 2.0 28 05/10/16 16:22 97.5 71 20 121/39 99 Room Air 05/10/16 16:15 Nasal Cannula 2.0 05/10/16 16:15 97.5 65 18 138/41 96 Nasal Cannula 2.0 05/10/16 13:10 Nasal Cannula 2.0 05/10/16 12:21 98.1 80 20 150/53 97 Room Air 05/10/16 12:05 97.5 05/10/16 11:25 97.5 05/10/16 09:08 69 150/55 05/10/16 09:07 69 150/55 05/10/16 08:26 97.5 69 20 150/55 96 Room Air 05/10/16 07:25 Nasal Cannula 2.0 28 05/10/16 07:25 96 Nasal Cannula 2.0 28 Intake and Output 05/10/16 05/11/16 19:00 07:00 Intake Total 770 ml 810 ml Output Total 2250 ml Balance -1480 ml 810 ml Intake Oral 720 ml 760 ml IV Total 50 ml 50 ml Hemodialysis UF 2250 ml # Bowel Movements 3 Height (Feet): 5 Height (Inches): 8.00 Weight (Pounds): 184 General Appearance: no apparent distress EENT: pale conjunctivae Neck: normal alignment Cardiovascular: normal rate Respiratory/Chest: lungs clear Abdomen: normal bowel sounds Objective Current Medications Medications (Trade) Dose Ordered Sig/Zohaib Route PRN Reason Start Time Stop Time Status Last Admin Dose Admin Acetaminophen (Tylenol) 650 mg Q4HR PRN ORAL Prn Headache/Temp > 101 05/03/16 20:45 06/02/16 20:44 Clonidine HCl (Catapres) 0.1 mg EVERY 8 HOURS PRN ORAL SBP>160 05/03/16 20:45 06/02/16 20:44 Diphenhydramine HCl (Benadryl) 50 mg EVERY 6 HOURS IV 05/04/16 00:00 06/03/16 00:00 05/07/16 06:26 Docusate Sodium (Colace) 100 mg TWICE A DAY ORAL 05/04/16 09:00 06/03/16 08:59 05/10/16 17:03 Epoetin Jeremiah (Procrit (for ESRD on dialysis)) 5,000 units SAT-SAT-SAT SUBQ 05/09/16 21:00 06/08/16 20:59 05/09/16 21:08 Hydromorphone HCl (Dilaudid) 1 mg Q4H PRN IVP For Pain 05/11/16 00:30 05/18/16 00:29 05/11/16 01:22 Lanthanum Carbonate (Fosrenol) 1,500 mg TID ORAL 05/04/16 09:00 06/03/16 08:59 05/10/16 17:04 Metoprolol Succinate (Toprol XL) 25 mg DAILY ORAL 05/03/16 21:00 06/02/16 20:59 05/10/16 09:07 Nateglinide (Starlix) 60 mg TIAC ORAL 05/07/16 11:30 06/06/16 11:29 05/11/16 05:42 Nifedipine (Procardia XL) 60 mg DAILY ORAL 05/04/16 09:00 06/03/16 08:59 05/10/16 09:08 Ondansetron HCl (Zofran) 4 mg Q6H PRN IV Nausea & Vomiting 05/03/16 20:45 06/02/16 20:44 Patient Own Medication (Patient's Own Med) 1 ea Sa@1700 ORAL 05/05/16 17:00 06/04/16 16:59 05/05/16 16:44 Patient Own Medication (Patient's Own Med) 1 ea WeSa@1700 ORAL 05/05/16 17:00 06/04/16 16:59 05/09/16 17:35 Patient Own Medication (Patient's Own Med) 2 ea BID ORAL 05/04/16 09:00 06/03/16 08:59 05/10/16 17:04 Piperacillin Sod/ Tazobactam Sod/ Dextrose (Zosyn/D5W 50ml) 50 ml @ 100 mls/hr Q8HR IVPB 05/05/16 14:00 05/21/16 13:59 05/11/16 05:42 Polyethylene Glycol (Miralax) 17 gm DAILY PRN ORAL Constipation 05/03/16 20:45 06/02/16 20:44 Sevelamer Carbonate (Renvela) 800 mg TID ORAL 05/04/16 09:00 06/03/16 08:59 05/10/16 17:04 Sevelamer Carbonate (Renvela) 2,400 mg THREE TIMES A DAY ORAL 05/04/16 09:00 06/03/16 08:59 05/10/16 17:04 Vancomycin HCl 1 ea 1 ea DAILY PRN MISC Per rx protocol 05/05/16 13:00 06/04/16 12:59 Vitamin A/Vitamin D (A & D Oint) 1 applic Q12HR TOPIC 05/04/16 12:00 06/03/16 11:59 05/10/16 20:59 Item Value Date Time Bedside Blood Glucose 97 mg/dl 05/11/16 0551 Bedside Blood Glucose 212 mg/dl H 05/10/16 2100 Bedside Blood Glucose 145 mg/dl H 05/10/16 1630 Bedside Blood Glucose 167 mg/dl H 05/10/16 1130 Bedside Blood Glucose 231 mg/dl H 05/10/16 0548 DO CERDA May 11, 2016 06:32
[2016-05-11 08:27] VITALS: BP 143/39
[2016-05-11] MEDS: Renvela 800mg Pkt ORAL SCH ×4 (08:38→19:14)
[2016-05-11] MEDS: Docusate 100mg cap ORAL SCH ×2 (08:38→19:13)
[2016-05-11] MEDS: Lanthanum 1000mg tab ORAL SCH ×3 (08:38→19:13)
[2016-05-11] MEDS: Renvela 2400 mg pkt ORAL SCH ×4 (08:38→19:14)
[2016-05-11] MEDS: Vitamin A&D Oint 2oz Tube TOPIC SCH (08:39)
--- NOTE | 2016-05-11 08:43 | General Progress Note ---
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, hypnotic or anxiolytic abuse, uncomplicated SNOMED: 775088750 (6) Anemia ICD Codes: D64.9 - Anemia, unspecified SNOMED: 467654732 (7) Vascular disease ICD Codes: I99.9 - Unspecified disorder of circulatory system SNOMED: 75393186 (8) Sepsis ICD Codes: A41.9 - Sepsis, unspecified organism SNOMED: 74600422 (9) ESRD (end stage renal disease) ICD Codes: N18.6 - End stage renal disease SNOMED: 17648565 (10) HIV disease ICD Codes: B20 - Human immunodeficiency virus [HIV] disease SNOMED: 02395565 (11) Pain ICD Codes: R52 - Pain, unspecified SNOMED: 24411666 Status: stable, progressing, tolerating diet Assessment/Plan ot pt diet wound care abx per id dc w hh if clear Subjective Constitutional: Reports: weakness Allergies: Coded Allergies: HEPARIN (Verified Allergy, Severe, low platelets, 06/11/14) SULFA (SULFONAMIDE ANTIBIOTICS) (Verified Allergy, Severe, nephro toxic, ) ZOLPIDEM (Verified Allergy, Unknown, 05/03/16) MEROPENEM (Verified Adverse Reaction, Intermediate, 04/01/16) Nausea and vomiting Uncoded Allergies: pork products (Allergy, Severe, rashes, 06/11/14) All Systems: reviewed and negative except above Subjective o2nc calm in bed Objective Last 24 Hour Vital Signs Date Time Temp Pulse Resp B/P Pulse Ox O2 Delivery O2 Flow Rate FiO2 05/11/16 08:27 98.0 75 20 143/39 98 Nasal Cannula 2.0 05/11/16 04:00 97.9 66 18 130/50 95 Room Air 05/10/16 23:59 98.0 67 18 129/48 96 Room Air 05/10/16 20:00 98.1 69 18 134/41 97 Room Air 05/10/16 19:37 Nasal Cannula 2.0 28 05/10/16 19:37 97 Nasal Cannula 2.0 28 05/10/16 16:22 97.5 71 20 121/39 99 Room Air 05/10/16 16:15 Nasal Cannula 2.0 05/10/16 16:15 97.5 65 18 138/41 96 Nasal Cannula 2.0 05/10/16 13:10 Nasal Cannula 2.0 05/10/16 12:21 98.1 80 20 150/53 97 Room Air 05/10/16 12:05 97.5 05/10/16 11:25 97.5 05/10/16 09:08 69 150/55 05/10/16 09:07 69 150/55 Intake and Output 05/10/16 05/11/16 19:00 07:00 Intake Total 770 ml 810 ml Output Total 2250 ml Balance -1480 ml 810 ml Intake Oral 720 ml 760 ml IV Total 50 ml 50 ml Hemodialysis UF 2250 ml # Bowel Movements 3 Height (Feet): 5 Height (Inches): 8.00 Weight (Pounds): 184 General Appearance: lethargic EENT: normal ENT inspection Neck: normal alignment Cardiovascular: normal peripheral pulses, normal rate, regular rhythm Respiratory/Chest: chest wall non-tender, lungs clear, normal breath sounds Abdomen: normal bowel sounds, non tender, soft Extremities: normal inspection Edema: no edema noted Arm (L), no edema noted Arm (R), no edema noted Leg (L), no edema noted Leg (R), no edema noted Pedal (L), no edema noted Pedal (R), no edema noted Generalized Neurologic: motor weakness Skin: normal pigmentation, warm/dry SNEHA PAIGE May 11, 2016 08:43
[2016-05-11] MEDS: VIRACEPT ORAL SCH ×2 (09:01→18:00)
--- NOTE | 2016-05-11 10:05 | Nephrology Progress Note ---
Assessment/Plan Assessment 1.ESRD 2.WEN 3.PVD 4.HTN 5.anemia of ckd 6.HIV Plan PLAN to continue iv antibiotic amputation dialysis today continue epogen continue renagel Subjective Constitutional: Reports: no symptoms HEENT: Reports: no symptoms Genitourinary: Reports: no symptoms Neurologic/Psychiatric: Reports: no symptoms Subjective alert and wake on hemodialysis Objective Objective Last 24 Hour Vital Signs Date Time Temp Pulse Resp B/P Pulse Ox O2 Delivery O2 Flow Rate FiO2 05/11/16 08:27 98.0 75 20 143/39 98 Nasal Cannula 2.0 05/11/16 04:00 97.9 66 18 130/50 95 Room Air 05/10/16 23:59 98.0 67 18 129/48 96 Room Air 05/10/16 20:00 98.1 69 18 134/41 97 Room Air 05/10/16 19:37 Nasal Cannula 2.0 28 05/10/16 19:37 97 Nasal Cannula 2.0 28 05/10/16 16:22 97.5 71 20 121/39 99 Room Air 05/10/16 16:15 Nasal Cannula 2.0 05/10/16 16:15 97.5 65 18 138/41 96 Nasal Cannula 2.0 05/10/16 13:10 Nasal Cannula 2.0 05/10/16 12:21 98.1 80 20 150/53 97 Room Air 05/10/16 12:05 97.5 05/10/16 11:25 97.5 Intake and Output 05/10/16 05/11/16 19:00 07:00 Intake Total 770 ml 810 ml Output Total 2250 ml Balance -1480 ml 810 ml Intake Oral 720 ml 760 ml IV Total 50 ml 50 ml Hemodialysis UF 2250 ml # Bowel Movements 3 Height (Feet): 5 Height (Inches): 8.00 Weight (Pounds): 184 Objective HEAD AND NECK: No JVP. No LAD. No thyromegaly. Extraocular movement intact. Pupils are reactive to light and accommodation. LUNGS: Decreased breathing sound on the both sides. CARDIAC: Regular rate and rhythm. S1 and S2. No murmur. No rub. ABDOMEN: Soft, nontender, and nondistended. EXTREMITIES: Has left lower extremity ulceration, which at this time is on the right toe, which is under dressing. LB SON May 11, 2016 10:05
[2016-05-11 10:45] VITALS: BP 147/49
[2016-05-11 11:22] LABS: BASOPHILS % (AUTO) 1.3 % (0.0-2.0); EOSINOPHILS % (AUTO) 6.6 % (0.0-3.0); LYMPHOCYTES % (AUTO) 28.1 % (20.0-45.0); MEAN CORPUSCULAR HEMOGLOBIN 30.1 PG (27.0-31.0); MEAN CORPUSCULAR VOLUME 97 FL (80-99); MEAN PLATELET VOLUME 8.6 FL (6.5-10.1); MONOCYTES % (AUTO) 15.2 % (1.0-10.0); NEUTROPHILS % (AUTO) 48.8 % (45.0-75.0); PLATELET COUNT 170 K/UL (150-450); RED BLOOD COUNT 3.54 M/UL (4.70-6.10); RED CELL DISTRIBUTION WIDTH 16.9 % (11.6-14.8); WHITE BLOOD COUNT 4.7 K/UL (4.8-10.8)
--- NOTE | 2016-05-11 11:24 | General Progress Note ---
Assessment/Plan Assessment/Plan ASSESSMENT: 1. Anemia secondary to chronic disease. Has keri consistently >8 2. Anemia secondary to kidney disease. on epo 3. Lymphadenopathy nonspecific, does not require biopsy at this time 4. Anemia, rule out gastrointestinal bleed. 5. End-stage renal disease, require HD 6. Diabetes mellitus. 7. Hyperkalemia. 8. Hypertension. 9. Peripheral vascular disease. RECOMMENDATIONS: 1. Monitor counts. 2. Transfuse as needed, hgb >8 goal. 3. Nephrology followup. HD per renal 4. Patient with left arm shunt 5. Continue Epogen sq 6. Followup nephrology and ID recs 7. Anemia w/u reviewed, does not need require further iron 8. Questionable heparin allergy 9. Discussed with staff. Thank you, Matt Shepherd MD Subjective Constitutional: Reports: no symptoms HEENT: Reports: no symptoms Cardiovascular: Reports: no symptoms Respiratory: Reports: no symptoms Gastrointestinal/Abdominal: Reports: no symptoms Genitourinary: Reports: burning Neurologic/Psychiatric: Reports: no symptoms Endocrine: Reports: no symptoms Hematologic/Lymphatic: Reports: anemia Allergies: Coded Allergies: HEPARIN (Verified Allergy, Severe, low platelets, 06/11/14) SULFA (SULFONAMIDE ANTIBIOTICS) (Verified Allergy, Severe, nephro toxic, ) ZOLPIDEM (Verified Allergy, Unknown, 05/03/16) MEROPENEM (Verified Adverse Reaction, Intermediate, 04/01/16) Nausea and vomiting Uncoded Allergies: pork products (Allergy, Severe, rashes, 06/11/14) Subjective stable, no fevers or chills or night sweats, no bleeding Objective Last 24 Hour Vital Signs Date Time Temp Pulse Resp B/P Pulse Ox O2 Delivery O2 Flow Rate FiO2 05/11/16 10:45 97.9 82 18 147/49 Nasal Cannula 2.0 05/11/16 10:45 Nasal Cannula 2.0 05/11/16 10:27 98.0 05/11/16 08:27 98.0 75 20 143/39 98 Nasal Cannula 2.0 05/11/16 07:40 Nasal Cannula 2.0 05/11/16 04:00 97.9 66 18 130/50 95 Room Air 05/10/16 23:59 98.0 67 18 129/48 96 Room Air 05/10/16 20:00 98.1 69 18 134/41 97 Room Air 05/10/16 19:37 Nasal Cannula 2.0 28 05/10/16 19:37 97 Nasal Cannula 2.0 28 05/10/16 16:22 97.5 71 20 121/39 99 Room Air 05/10/16 16:15 Nasal Cannula 2.0 05/10/16 16:15 97.5 65 18 138/41 96 Nasal Cannula 2.0 05/10/16 13:10 Nasal Cannula 2.0 05/10/16 12:21 98.1 80 20 150/53 97 Room Air 05/10/16 12:05 97.5 05/10/16 11:25 97.5 Intake and Output 05/10/16 05/11/16 19:00 07:00 Intake Total 770 ml 810 ml Output Total 2250 ml Balance -1480 ml 810 ml Intake Oral 720 ml 760 ml IV Total 50 ml 50 ml Hemodialysis UF 2250 ml # Bowel Movements 3 Laboratory Tests 05/11/16 10:55: White Blood Count 4.7L, Red Blood Count 3.54L, Hemoglobin 10.6L, Hematocrit 34.4L, Mean Corpuscular Volume 97, Mean Corpuscular Hemoglobin 30.1, Mean Corpuscular Hemoglobin Concent 31.0L, Red Cell Distribution Width 16.9H, Platelet Count 170, Mean Platelet Volume 8.6, Neutrophils (%) (Auto) 48.8, Lymphocytes (%) (Auto) 28.1, Monocytes (%) (Auto) 15.2H, Eosinophils (%) (Auto) 6.6H, Basophils (%) (Auto) 1.3, Sodium Level [Pending], Potassium Level [Pending ], Chloride Level [Pending], Carbon Dioxide Level [Pending], Blood Urea Nitrogen [Pending], Creatinine [Pending], Estimat Glomerular Filtration Rate [ Pending], Glucose Level [Pending], Calcium Level [Pending] Height (Feet): 5 Height (Inches): 8.00 Weight (Pounds): 184 General Appearance: alert EENT: normal ENT inspection Neck: supple Cardiovascular: normal rate Respiratory/Chest: lungs clear Abdomen: non tender Extremities: non-tender Edema: 1+ Leg (L), 1+ Leg (R) Edema: mild edema Neurologic: no motor/sensory deficits Skin: warm/dry Kleynberg,Matt L. May 11, 2016 11:24
[2016-05-11 11:34] LABS: CALCIUM 9.6 mg/dL (8.6-10.2); CREATININE 3.6 mg/dL (0.7-1.2); POTASSIUM 3.9 mEQ/L (3.4-4.9)
[2016-05-11 11:35] VITALS: BP 147/49
--- NOTE | 2016-05-11 14:43 | Infectious Diseases Prog Note ---
Assessment/Plan Assessment/Plan ASSESSMENT AND PLAN: 1. esbl e.coli/likely polymicrobial left foot wound infection with osteomyelitis and right foot 2nd toe osteo/wound - s/p debridement of left foot , s/p left leg revascularization - zosyn and vancomycin for another 10 days (total 6 week abx course) - watch labs and sed rate - wound culture of left foot and right food 2nd toe at [facility] were negative - amputation of right 2nd toe planned - patient with line access - ? mid line vs picc line, per nursing it is a picc line - wound vac left foot - wounds stable - d/w , pharmacy and home health 2. Wound care per podiatry and surgery 3. End-stage renal disease on hemodialysis, treatment per Renal. 4. Diabetes. 5. Hypertension. 6. Blood sugar and blood pressure control per primary. 7. Human immunodeficiency virus. 8. Antiviral therapy. 9. continue HIV anti-retroviral therapy 10. Anemia. 11. Peripheral vascular disease. 12. Gastrointestinal disease. 13. Fistula. 14. Neurologic disease, VAD. 15. Transient ischemic attack. 16. Weakness. 17. Seizures. 18. Left ventricular hypertrophy. 19. Atrial septal defect. 20. Coagulopathy, hematological disorder. 21. Past medical history as noted. 22. Allergies to sulfa, pork and heparin, -de 23. Case was discussed with the patient 24. wound care per protocol 25. Case was discussed with RN. 26. Notes and records were reviewed. 27. MAR was noted. 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 Subjective Constitutional: Reports: fatigue, Denies: fever HEENT: Denies: congestion Respiratory: Denies: shortness of breath Cardiovascular: Denies: chest pain Gastrointestinal/Abdominal: Denies: diarrhea, nausea, vomiting Neurologic: Denies: headache Skin: Denies: rash Hematologic: Denies: bleeding Allergies: Coded Allergies: HEPARIN (Verified Allergy, Severe, low platelets, 06/11/14) SULFA (SULFONAMIDE ANTIBIOTICS) (Verified Allergy, Severe, nephro toxic, ) ZOLPIDEM (Verified Allergy, Unknown, 05/03/16) MEROPENEM (Verified Adverse Reaction, Intermediate, 04/01/16) Nausea and vomiting Uncoded Allergies: pork products (Allergy, Severe, rashes, 06/11/14) Objective Vital Signs Last 24 Hour Vital Signs Date Time Temp Pulse Resp B/P Pulse Ox O2 Delivery O2 Flow Rate FiO2 05/11/16 11:35 97.9 82 20 147/49 99 Nasal Cannula 2.0 05/11/16 10:45 97.9 82 18 147/49 Nasal Cannula 2.0 05/11/16 10:45 Nasal Cannula 2.0 05/11/16 10:27 98.0 05/11/16 08:27 98.0 75 20 143/39 98 Nasal Cannula 2.0 05/11/16 07:40 Nasal Cannula 2.0 05/11/16 04:00 97.9 66 18 130/50 95 Room Air 05/10/16 23:59 98.0 67 18 129/48 96 Room Air 05/10/16 20:00 98.1 69 18 134/41 97 Room Air 05/10/16 19:37 Nasal Cannula 2.0 28 05/10/16 19:37 97 Nasal Cannula 2.0 28 05/10/16 16:22 97.5 71 20 121/39 99 Room Air 05/10/16 16:15 Nasal Cannula 2.0 05/10/16 16:15 97.5 65 18 138/41 96 Nasal Cannula 2.0 Height (Feet): 5 Height (Inches): 8.00 Weight (Pounds): 184 General Appearance: no acute distress HEENT: normocephalic, atraumatic, anicteric, mucous membranes moist, PERRL, EOMI, pharynx normal, supple, no JVD Respiratory/Chest: lungs clear, normal breath sounds, no respiratory distress, no accessory muscle use Cardiovascular: normal rate, regular rhythm, no gallop/murmur, no JVD Abdomen: normal bowel sounds, soft, non tender, no organomegaly, non distended Genitourinary: other - no agarwal Extremities: other - left foot wound examined and is clean, rigth foot 2nd toe woound stable Skin: no rash Neurologic/Psychiatric: 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 Complete 05/04/16 00:30 Rectum VRE Culture - Final Enterococcus Faecium - Vre Complete Laboratory Tests Test 05/11/16 10:55 White Blood Count 4.7 K/UL (4.8-10.8) L Red Blood Count 3.54 M/UL (4.70-6.10) L Hemoglobin 10.6 G/DL (14.2-18.0) L Hematocrit 34.4 % (42.0-52.0) L Mean Corpuscular Volume 97 FL (80-99) Mean Corpuscular Hemoglobin 30.1 PG (27.0-31.0) Mean Corpuscular Hemoglobin Concent 31.0 G/DL (32.0-36.0) L Red Cell Distribution Width 16.9 % (11.6-14.8) H Platelet Count 170 K/UL (150-450) Mean Platelet Volume 8.6 FL (6.5-10.1) Neutrophils (%) (Auto) 48.8 % (45.0-75.0) Lymphocytes (%) (Auto) 28.1 % (20.0-45.0) Monocytes (%) (Auto) 15.2 % (1.0-10.0) H Eosinophils (%) (Auto) 6.6 % (0.0-3.0) H Basophils (%) (Auto) 1.3 % (0.0-2.0) Sodium Level 139 mEQ/L (135-145) Potassium Level 3.9 mEQ/L (3.4-4.9) Chloride Level 97 mEQ/L (98-107) L Carbon Dioxide Level 27 mEQ/L (20-30) Anion Gap 15 (5-15) Blood Urea Nitrogen 28 mg/dL (7-23) #H Creatinine 3.6 mg/dL (0.7-1.2) H Estimat Glomerular Filtration Rate 21.0 mL/min (>60) Glucose Level 175 mg/dL (74-106) H Calcium Level 9.6 mg/dL (8.6-10.2) Current Medications Medications (Trade) Dose Ordered Sig/Zohaib Route PRN Reason Start Time Stop Time Status Last Admin Dose Admin Acetaminophen (Tylenol) 650 mg Q4HR PRN ORAL Prn Headache/Temp > 101 05/03/16 20:45 06/02/16 20:44 Clonidine HCl (Catapres) 0.1 mg EVERY 8 HOURS PRN ORAL SBP>160 05/03/16 20:45 06/02/16 20:44 Diphenhydramine HCl (Benadryl) 50 mg EVERY 6 HOURS IV 05/04/16 00:00 06/03/16 00:00 05/07/16 06:26 Docusate Sodium (Colace) 100 mg TWICE A DAY ORAL 05/04/16 09:00 06/03/16 08:59 05/11/16 08:38 Epoetin Jeremiah (Procrit (for ESRD on dialysis)) 5,000 units SUBQ 05/09/16 21:00 06/08/16 20:59 05/09/16 21:08 Hydromorphone HCl 1 mg 1 mg Q4H PRN IVP For Pain 05/11/16 00:30 05/18/16 00:29 05/11/16 09:57 Lanthanum Carbonate (Fosrenol) 1,500 mg TID ORAL 05/04/16 09:00 06/03/16 08:59 05/10/16 17:04 Metoprolol Succinate (Toprol XL) 25 mg DAILY ORAL 05/03/16 21:00 06/02/16 20:59 05/10/16 09:07 Nateglinide (Starlix) 60 mg TIAC ORAL 05/07/16 11:30 06/06/16 11:29 05/11/16 11:50 Nifedipine (Procardia XL) 60 mg DAILY ORAL 05/04/16 09:00 06/03/16 08:59 05/10/16 09:08 Ondansetron HCl (Zofran) 4 mg Q6H PRN IV Nausea & Vomiting 05/03/16 20:45 06/02/16 20:44 Patient Own Medication (Patient's Own Med) 1 ea Sa@1700 ORAL 05/05/16 17:00 06/04/16 16:59 05/05/16 16:44 Patient Own Medication (Patient's Own Med) 1 ea WeSa@1700 ORAL 05/05/16 17:00 06/04/16 16:59 05/09/16 17:35 Patient Own Medication (Patient's Own Med) 2 ea BID ORAL 05/04/16 09:00 06/03/16 08:59 05/11/16 09:01 Piperacillin Sod/ Tazobactam Sod/ Dextrose (Zosyn/D5W 50ml) 50 ml @ 100 mls/hr Q8HR IVPB 05/05/16 14:00 05/21/16 13:59 05/11/16 05:42 Polyethylene Glycol (Miralax) 17 gm DAILY PRN ORAL Constipation 05/03/16 20:45 06/02/16 20:44 Sevelamer Carbonate (Renvela) 800 mg TID ORAL 05/04/16 09:00 06/03/16 08:59 05/11/16 12:02 Sevelamer Carbonate (Renvela) 2,400 mg THREE TIMES A DAY ORAL 05/04/16 09:00 06/03/16 08:59 05/11/16 12:03 Vancomycin HCl 1 ea 1 ea DAILY PRN MISC Per rx protocol 05/05/16 13:00 06/04/16 12:59 Vancomycin HCl/ Dextrose (Vancomycin/D5W 250ml) 275 ml @ 183.708 mls/hr ONCE ONCE IVPB 05/11/16 16:00 05/11/16 17:29 Vitamin A/Vitamin D (A & D Oint) 1 applic Q12HR TOPIC 05/04/16 12:00 06/03/16 11:59 05/11/16 08:39 INOCENCIA DOS SANTOS May 11, 2016 14:43
[2016-05-11 16:00] VITALS: BP 122/68
[2016-05-11] MEDS ORDERED: Vancomycin 1gm/D5W 250ml IVPB ONE ×2 (16:00)
--- NOTE | 2016-05-11 16:41 | Wound Nurse Progress Note ---
Wound RN Progress Note Wound Consult Wound vac dressing changed today. Pt uses his own wound vac. Pt stated she will bring supplies but unable to find it in PT room. Pt has been using [facility] supplies to change dressing on MWF. Asked Pt to remind his to give us supplies, pt was irritated and told me I am acting like a boss, and pt asked me , where are you from? you act like you are Indian. It is good Gurjit Ambrosio is elected, he is will deport you soon to where ever you came from. I explained to Pt I am just doing my job. Pt stated you are getting paid to do that and they should take my work permit taken away. Reported the situation to charge nurse SCOOBY Bauer RN May 11, 2016 16:41
--- NOTE | 2016-05-12 07:49 | Discharge Summary ---
Discharge Summary Hospital Course Date of Admission May 03, 2016 at 18:30 Date of Discharge May 11, 2016 at 19:40 Admitting Diagnosis HPI Lloyd Grigsby is a 60 year old male who was admitted on May 03, 2016 at 18:30 for Peripheral Vascular Disease Hospital Course [id number] Discharge Discharge Disposition Patient was discharged to Home with Home Health(06) Discharge Diagnoses: Tonie Pineda NP May 12, 2016 07:49
--- NOTE | 2016-05-13 11:08 | Discharge Summary 2 SIG ---
DATE OF ADMISSION: 05/03/2016 DATE OF DISCHARGE: 05/11/2016 CONSULTANTS: 1. Saturnino Reed M.D. 2. Matt Shepherd M.D. 3. Marcos Dang M.D. 4. Sudeep Houston M.D. 5. Janis Olivo M.D. 6. Yesenia Conway M.D. 7. Victor Hugo Blackburn D.P.M. BRIEF HOSPITAL COURSE: The patient is a 60-year-old male, who was brought in to ED for general complaints. The patient was brought in by ambulance for direct admission to the floor. Dr. Olivo was consulted. The patient has history of end-stage renal disease and was given inpatient hemodialysis. Dr. Reed was consulted. The patient has severe aortic regurgitation, however, it was clinically well tolerated and was continued on preload reduction with hemodialysis and afterload reduction with calcium channel, minoxidil. Dr. Dang was consulted. The patient had undergone bilateral tibial revascularization and has palpable dorsalis pedis pulses. The patient had developed prior gangrene and underwent an amputation and foot debridement on the left foot and also has right toe osteomyelitis. Dr. Blackburn was consulted. The patient would need right toe amputation. Left foot wound care was done with wound VAC. The patient was scheduled for amputation, however, the procedure was canceled secondary to elevated potassium. The patient was then rescheduled at a later time on 05/15/2016. The patient was discharged home. He was also followed up during inpatient stay by Dr. Houston for diabetes management. He was followed by Dr. Conway for antibiotic management as the patient has osteomyelitis with ESBL E. coli, likely polymicrobial left foot wound infection and the patient will need total of 6-week antibiotic course. The patient was eventually discharged home. FINAL DIAGNOSES: 1. Extended-spectrum beta-lactamase Escherichia coli/polymicrobial left foot wound infection with osteomyelitis and right foot second toe osteomyelitis. 2. End-stage renal disease, on hemodialysis. 3. Anemia secondary to chronic disease. 4. Anemia secondary to kidney disease. 5. Hyperkalemia. 6. Peripheral vascular disease. 7. Renal osteodystrophy. 8. Hypertension. 9. Human immunodeficiency virus. 10. Diabetes mellitus, out of control. 11. Management of wound with wound VAC. 12. History of left foot gangrene, status post open amputation with wound VAC. 13. Non-pressure ulcer on the right second toe at the level of bone; non-pressure ulcer, left foot, surgical at the level of muscle; non-pressure ulcer, sub-metatarsal head on the fifth right toe through subcutaneous, present on admission. 14. Sacral stage II pressure ulcer, present on admission. Louis Barahona D.O. I have been assigned to dictate discharge summary on this account and I was not involved in the patient's management. Tonie Pineda N.P. DR: Nadya JOB#: [id number] CC: AMBAR
[2016-05-14] MEDS ORDERED: Miralax 17gm pkt ORAL PRN (14:45)
[2016-05-14] MEDS ORDERED: Morphine Sulfate 2mg/ml Inj IVP PRN (14:45)
[2016-05-14] MEDS ORDERED: Mylanta II UD 30ml ORAL PRN (14:45)
[2016-05-14] MEDS ORDERED: LORazepam Inj 2mg/ml 1ml IV PRN (14:45)
[2016-05-14] MEDS ORDERED: HYDROmorphone 1mg/ml Carpuject IVPB SCH (17:00)
[2016-05-14] MEDS ORDERED: Minoxidil 2.5mg tab ORAL SCH (21:00)
--- NOTE | 2016-05-19 17:10 | Diagnostic Imaging Report ---
APPROVED REPORT CPT Code: 60265 Present Symptoms Comments: Bilateral foot pain BILATERAL: Imaging reveals a patent deep venous system bilaterally. There is no evidence of thrombus within the femoral, popliteal or tibial segments. The greater saphenous veins are also within normal limits. Doppler indicates normal spontaneous flow within these segments.
--- NOTE | 2016-05-22 10:27 | History and Physical Report ---
DATE OF ADMISSION: 05/03/2016 I am covering for Dr. Louis Barahona . HISTORY OF PRESENT ILLNESS: The patient was admitted and Dr. Olivo was also consulted. The patient has end-stage renal disease. Dr. Dang was also consulted. The patient had angioplasty done in another hospital by Dr. Dang. The patient had developed gangrene on the left foot and also has a history of 12 [address]itis[address] Dr. Blackburn was also consulted. PAST MEDICAL HISTORY: Significant for HIV, diabetes, end-stage renal disease, on hemodialysis, osteomyelitis, sepsis, anemia, anxiety, hypertension, chronic pain syndrome, GERD, end-stage renal disease, on dialysis. MEDICATIONS: Include Jevity, Renagel, vitamins, Zofran, Ambien, ferrous sulfate, estrogen, Epogen, Colace, Plavix, clonidine, and acyclovir. ALLERGIES: , meropenem, sulfa, zolpidem, and Plavix. SOCIAL HISTORY: Unable to obtain. FAMILY HISTORY: Unable to obtain. REVIEW OF SYSTEMS: HEENT: Denies headaches. Respiratory: Denies shortness of breath. Denies cough. Cardiovascular: Denies chest pain. Gastrointestinal: Denies nausea or vomiting. Extremities: Does have chronic pain syndrome. Central Nervous System: Denies change in vision or speech pattern. PHYSICAL EXAMINATION: VITAL SIGNS: Temperature is 98, pulse is 75, and blood pressure 142/ . HEENT: PERRLA. NECK: Supple. No lymphadenopathy. CHEST: Clear to auscultation. GASTROINTESTINAL: Soft. Positive bowel sounds. Nontender . EXTREMITIES: No edema. Reflexes are equal on both sides. LABORATORY DATA: WBC of 6.5, hemoglobin 9.6, and platelets of 192,000. Sodium 134, potassium 5.9, BUN of 19, creatinine is 0.9, and glucose of 145. ASSESSMENT: 1. Dr. Dang and consultation by Dr. Blackburn. 2. Peripheral vascular disease. 3. Hypertension. PLAN: As mentioned, Dr. Dang as well as ID, Dr. White . Ali Joni Hernández DR: RAE JOB#: [id number] CC:
== END 2016-05-11 19:40 | disposition home health service (06) | DRG 539 ==
LOC: EDSEX → EDBD 18:05 → EMR 18:25 → 4W 18:30
PROC: 5A1D60Z (ICD-10-PCS; principal; 2016-05-04)
PROC: 30233N1 Transfusion of Nonautologous Red Blood Cells into Peripheral Vein, Percutaneous Approach (ICD-10-PCS; 2016-05-09)
DX: M86.8X7 Other osteomyelitis, ankle and foot (principal); B20 Human immunodeficiency virus [HIV] disease; N18.6 End stage renal disease; L89.152 Pressure ulcer of sacral region, stage 2; I12.0 Hypertensive chronic kidney disease with stage 5 chronic kidney disease or end stage renal disease; E11.621 Type 2 diabetes mellitus with foot ulcer; L97.811 Non-pressure chronic ulcer of other part of right lower leg limited to breakdown of skin; B96.20 Unspecified Escherichia coli [E. coli] as the cause of diseases classified elsewhere; Z16.12 Extended spectrum beta lactamase (ESBL) resistance; L97.514 Non-pressure chronic ulcer of other part of right foot with necrosis of bone; L97.523 Non-pressure chronic ulcer of other part of left foot with necrosis of muscle; D63.1 Anemia in chronic kidney disease; Z99.2 Dependence on renal dialysis; E87.5 Hyperkalemia; I73.9 Peripheral vascular disease, unspecified; N25.0 Renal osteodystrophy; E11.65 Type 2 diabetes mellitus with hyperglycemia; I35.1 Nonrheumatic aortic (valve) insufficiency; Z88.2 Allergy status to sulfonamides; Z88.8 Allergy status to other drugs, medicaments and biological substances; E78.5 Hyperlipidemia, unspecified; Z89.412 Acquired absence of left great toe; Z89.422 Acquired absence of other left toe(s); Z86.19 Personal history of other infectious and parasitic diseases; Z86.73 Personal history of transient ischemic attack (TIA), and cerebral infarction without residual deficits; Z53.09 Procedure and treatment not carried out because of other contraindication; R59.1 Generalized enlarged lymph nodes
CPT/HCPCS: 36415; 71010; 80048; 80053; 80202; 82962; 83036; 85007; 85025; 85610; 85651; 85730; 86850; 86900; 86901; 86920; 87081; 93970; 94760; 97803

== ENCOUNTER 2016-05-14 00:28 | Inpatient (IN) | payer BC ==
[2016-05-14] VITALS (10 sets, daily range): BP systolic 121–162; BP diastolic 44–80
[~2016-05-14] VITALS: Ht 172.7 cm; Wt 83.9 kg
[2016-05-14] MEDS ORDERED: HYDROmorphone 1mg/ml Carpuject IVP ONE ×3 (01:00→12:15)
[2016-05-14] MEDS ORDERED: STARLIX60 MG ORAL (01:11)
[2016-05-14] MEDS ORDERED: PREMARIN0.45 MG ORAL (01:11)
[2016-05-14] MEDS ORDERED: PROBIOTIC1 EAC2 PO (01:11)
[2016-05-14] MEDS ORDERED: SYSTANE 0.3-0.415 ML OP (01:11)
[2016-05-14] MEDS ORDERED: POLYSPORIN OI28.3 GM TP (01:11)
[2016-05-14 01:41] LABS: BASOPHILS % (AUTO) 2.2 % (0.0-2.0); EOSINOPHILS % (AUTO) 7.7 % (0.0-3.0); LYMPHOCYTES % (AUTO) 32.1 % (20.0-45.0); MEAN CORPUSCULAR HEMOGLOBIN 30.5 PG (27.0-31.0); MEAN CORPUSCULAR HGB CONC 31.5 G/DL (32.0-36.0); MEAN CORPUSCULAR VOLUME 97 FL (80-99); MEAN PLATELET VOLUME 7.8 FL (6.5-10.1); MONOCYTES % (AUTO) 12.9 % (1.0-10.0); NEUTROPHILS % (AUTO) 45.1 % (45.0-75.0); PLATELET COUNT 213 K/UL (150-450); RED BLOOD COUNT 3.64 M/UL (4.20-5.40); RED CELL DISTRIBUTION WIDTH 16.2 % (11.6-14.8); WHITE BLOOD COUNT 5.8 K/UL (4.8-10.8)
[2016-05-14 01:54] LABS: INR 1.1 (0.9-1.1)
[2016-05-14 01:59] LABS: TROPONIN I < 0.30 ng/mL (<=0.30)
[2016-05-14 02:02] LABS: ALANINE AMINOTRANSFERASE 34 U/L (3-33); ALBUMIN/GLOBULIN RATIO 0.8 (1.0-2.7); ANION GAP 26 (5-15); ASPARTATE AMINO TRANSFERASE 49 U/L (5-40); CALCIUM 9.7 mg/dL (8.6-10.2); CARBON DIOXIDE 20 mEQ/L (20-30); CHLORIDE 91 mEQ/L (98-107); CREATININE 10.1 mg/dL (0.5-0.9); CRP QUANT 1.1 mg/dL (< 0.5); GLOMERULAR FILTRATION RATE 4.7 mL/min (>60); HEMOLYSIS 13; POTASSIUM 5.8 mEQ/L (3.4-4.9); SODIUM 137 mEQ/L (135-145); TOTAL PROTEIN 8.1 g/dL (6.6-8.7)
--- NOTE | 2016-05-14 02:33 | Emergency Room Report ---
History of Present Illness General Chief Complaint: General Complaint Source: Patient, Family Member Present Illness HPI the patient was sent in because of non-healing osteomyelitis and an non-healing foot ulcer. c/o pain. Pain 8/10 aching, constant, not radiating - bilateral feet. He was discharged 05/11 with these diagnoses: 1. Extended-spectrum beta-lactamase Escherichia coli/polymicrobial left foot wound infection with osteomyelitis and right foot second toe osteomyelitis. 2. End-stage renal disease, on hemodialysis. 3. Anemia secondary to chronic disease. 4. Anemia secondary to kidney disease. 5. Hyperkalemia. 6. Peripheral vascular disease. 7. Renal osteodystrophy. 8. Hypertension. 9. Human immunodeficiency virus. 10. Diabetes mellitus, out of control. 11. Management of wound with wound VAC. 12. History of left foot gangrene, status post open amputation with wound VAC. 13. Non-pressure ulcer on the right second toe at the level of bone; non-pressure ulcer, left foot, surgical at the level of muscle; non-pressure ulcer, sub-metatarsal head on the fifth right toe through subcutaneous, present on admission. 14. Sacral stage II pressure ulcer, present on admission. He was transfused in the hospital. No dyspnea, chest pain, cough, NVD, dysuria, headache. 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 Reviewed Nursing Documentation: PMH: Agreed, PSxH: Agreed Nursing Documentation-PMH Hx Cardiac Problems: Yes - Osteomylitis, HHT, CHF, TIA Hx Hypertension: Yes - HIV, Hep C Hx Diabetes: Yes Hx Cancer: No Hx Gastrointestinal Problems: Yes Hx Dialysis: Yes - ESRD Hx Neurological Problems: Yes - VA Hx Transient Ischemic Attacks: Yes Hx Seizures: Yes Hx Weakness: Yes - right side Review of Systems All Other Systems: negative except mentioned in HPI Physical Exam Vital Signs Date Time Temp Pulse Resp B/P Pulse Ox O2 Delivery O2 Flow Rate FiO2 05/14/16 00:42 60 16 144/53 95 Room Air 05/14/16 01:31 97.6 Sp02 EP Interpretation: reviewed, normal General Appearance: no apparent distress, GCS 15, Chronically Ill Head: normocephalic Eyes: bilateral eye PERRL, bilateral eye normal inspection ENT: moist mucus membranes Neck: supple Respiratory: lungs clear, normal breath sounds Cardiovascular #1: regular rate, rhythm Cardiovascular #2: 2+ radial (R) Gastrointestinal: normal inspection, normal bowel sounds, non tender, no mass, non-distended Musculoskeletal: back normal, swelling, other - bilateral dressings feet. Atrophy. Patient non-ambulatory. UE without abnormal findings. Neurologic: alert, oriented x3, carpet mechanic III-XII nml as tested, DTRs symmetric, other - peripheral neuropathy, atrophy LE bilat Psychiatric: mood/affect normal Skin: warm/dry, other - dressings on both feet with VAC on L foot Medical Decision Making Diagnostic Impression: Primary Impression: Peripheral vascular disease Additional Impressions: ESRD (end stage renal disease) Osteomyelitis Qualified Codes: M86.679 - Other chronic osteomyelitis, unspecified ankle and foot ER Course Patient presents with bilateral foot pain. DDx: cellulitis, osteomyelitis, gangrene, PVD amongst others. Recent transfusion and need to assess H/H also. Labs, EKG, CXR ordered. As dialysis patient, need to limit hydration. Apparently, the patient has been scheduled to have definitive treatment of the devascularized/infected extremity. Patient improved with treatment. High potassium treated. Contact Dr. Barahona for admission. Laboratory Tests Test 05/14/16 01:23 White Blood Count 5.8 K/UL (4.8-10.8) Red Blood Count 3.64 M/UL (4.20-5.40) L Hemoglobin 11.1 G/DL (12.0-16.0) L Hematocrit 35.3 % (37.0-47.0) L Mean Corpuscular Volume 97 FL (80-99) Mean Corpuscular Hemoglobin 30.5 PG (27.0-31.0) Mean Corpuscular Hemoglobin Concent 31.5 G/DL (32.0-36.0) L Red Cell Distribution Width 16.2 % (11.6-14.8) H Platelet Count 213 K/UL (150-450) Mean Platelet Volume 7.8 FL (6.5-10.1) Neutrophils (%) (Auto) 45.1 % (45.0-75.0) Lymphocytes (%) (Auto) 32.1 % (20.0-45.0) Monocytes (%) (Auto) 12.9 % (1.0-10.0) H Eosinophils (%) (Auto) 7.7 % (0.0-3.0) H Basophils (%) (Auto) 2.2 % (0.0-2.0) H Prothrombin Time 11.0 SEC (9.30-11.50) Prothrombin Time INR 1.1 (0.9-1.1) PTT 23 SEC (23-33) Sodium Level 137 mEQ/L (135-145) Potassium Level 5.8 mEQ/L (3.4-4.9) H Chloride Level 91 mEQ/L (98-107) L Carbon Dioxide Level 20 mEQ/L (20-30) Anion Gap 26 (5-15) H Blood Urea Nitrogen 95 mg/dL (7-23) H Creatinine 10.1 mg/dL (0.5-0.9) H Estimate Glomerular Filtration Rate 4.7 mL/min (>60) Glucose Level 79 mg/dL (74-106) Calcium Level 9.7 mg/dL (8.6-10.2) Total Bilirubin 0.8 mg/dL (0.0-1.2) Aspartate Amino Transferase (AST) 49 U/L (5-40) H Alanine Aminotransferase (ALT) 34 U/L (3-33) H Alkaline Phosphatase 152 U/L (35-104) H Total Creatine Kinase 41 U/L (26-140) Troponin I < 0.30 ng/mL (<=0.30) C-Reactive Protein, Quantitative 1.1 mg/dL (< 0.5) H Pro-B-Type Natriuretic Peptide 99799 pg/mL (0-125) H Total Protein 8.1 g/dL (6.6-8.7) Albumin 3.7 g/dL (3.5-5.2) Globulin 4.4 g/dL Albumin/Globulin Ratio 0.8 (1.0-2.7) L EKG Diagnostic Results Rate: normal Rhythm: NSR ST Segments: no acute changes - LVH Rhythm Strip Diag. Results EP Interpretation: yes Rhythm: NSR, no PVC's, no ectopy Chest X-Ray Diagnostic Results EP Interpretation: Yes Findings: no consolidation, no effusion, no pneumothorax, other - cardiomegally /ca vessels Number of Views: 1 Status: improved Disposition: ADMITTED INPATIENT Condition: Serious Referrals: NON PHYSICIAN (PCP) Ruel Kohler M.D. May 14, 2016 02:33
[2016-05-14] MEDS ORDERED: Sodium Polystyrene Sulfonate 15gm Powder ORAL ONE (04:30)
[2016-05-14] MEDS ORDERED: Calcium Gluconate 1gm/10ml vial IVP ONE (04:30)
[2016-05-14] MEDS ORDERED: HYDROmorphone 1mg/NS 50ml IVPB 50 ML IVPB ONE (07:45)
--- NOTE | 2016-05-14 09:17 | Diagnostic Imaging Report ---
Indications: Chest pain Technique: Portable AP chest Findings: Comparison: 05/04/2016 Cardiac silhouette remains enlarged. Central pulmonary vasculature remains prominent. Peripheral pulmonary vasculature remains within normal limits. Lungs and pleura remain clear. Mild calcification of the aortic arch is again noted. IMPRESSION: No evidence of acute disease, unchanged Stable chronic changes as described
--- NOTE | 2016-05-14 14:52 | Consultation ---
History of Present Illness General Date patient seen: May 14, 2016 Chief Complaint: General Complaint Referring physician: Dr. Barahona Reason for Consultation: In-patient managemtnt Present Illness HPI 60 year old male with extensive PHM including ESRF, HIV, HTN, Seizures, PVD, was scheduled right food, second toe. Pt had hyperkalemia and was admitted to optimize the electrolytes. Pt has multiple complains including aches and pains etc. Allergies: Coded Allergies: HEPARIN (Verified Allergy, Severe, low platelets, 06/11/14) SULFA (SULFONAMIDE ANTIBIOTICS) (Verified Allergy, Severe, nephro toxic, ) ZOLPIDEM (Verified Allergy, Unknown, 05/03/16) MEROPENEM (Verified Adverse Reaction, Intermediate, 04/01/16) Nausea and vomiting Uncoded Allergies: pork products (Allergy, Severe, rashes, 06/11/14) Medication History Scheduled Acyclovir* (Acyclovir*), 800 MG ORAL DAILY, (Reported) Clopidogrel Bisulfate* (Plavix*), 75 MG ORAL DAILY, (Reported) Diphenhydramine Hcl (Diphenhydramine Hcl), 50 MG IJ EVERY 6 HOURS, (Reported) Docusate Sodium* (Colace*), 100 MG ORAL TWICE A DAY, (Reported) Doxercalciferol (Hectorol), 2.5 MCG PO DAILY, (Reported) Emtricitabine* (Emtriva*), 200 MG ORAL q wed and sat, (Reported) Epoetin Jeremiah (Epogen), 20,000 UNIT SUBQ q mon sat and sat, (Reported) Ergocalciferol (Vitamin D2)* (Vitamin D*), 50,000 UNIT ORAL weekly, (Reported) Estrogens,Conjugated (Premarin), 0.625 MG ORAL DAILY, (Reported) Folic Acid/Vitamin B Comp W-C (Renal Caps Softgel), 1 MG PO DAILY, (Reported) Hydromorphone HCl (Hydromorphone HCl), 1 MG IJ EVERY 4 HOURS, (Reported) Lanthanum Carbonate (Fosrenol), 1,500 MG PO TID, (Reported) Metoprolol Succinate* (Toprol Xl*), 25 MG ORAL DAILY, (Reported) Metoprolol Succinate* (Metoprolol Succinate*), 25 MG ORAL DAILY, (Reported) Minoxidil* (Loniten*), 2.5 MG PO Q12HR, (Reported) Nateglinide* (Starlix*), 120 MG ORAL THREE TIMES A DAY, (Reported) Nelfinavir Mesylate (Viracept), 2 TAB PO BID, (Reported) Nelfinavir Mesylate* (Viracept*), 625 MG ORAL BIDAC, (Reported) Nifedipine Xl* (Procardia Xl*), 60 MG ORAL DAILY, (Reported) Hzyoqdcxuurw-Yxxq-Lmroimrt,Iso (Zosyn 3.375 Gm Pre Mix-Bag), 2.25 GM IVPB EVERY 8 HOURS, (Reported) Ranitidine Hcl* (Zantac*), 150 MG ORAL DAILY, (Reported) Sevelamer Carbonate* (Renvela*), 3,200 MG ORAL THREE TIMES A DAY, (Reported) Sevelamer Hcl (Renagel), 4 TAB ORAL TID, (Reported) Tenofovir Disoproxil Fumarate* (Viread*), 300 MG ORAL q sat, (Reported) Vancomycin Hcl/D5w (Vancomycin-D5w 1 G/250 Ml), 1 GM IVPB ONCE A WEEK, (Reported ) Vitamin A & D (Vitamin A & D Ointment), 1 APPLIC TOPIC Q12HR, (Reported) Warfarin Sod* (Coumadin*), 10 MG ORAL DAILY, (Reported) Scheduled PRN Acetaminophen (Acetaminophen), 650 MG ORAL Q4HR PRN for Prn Headache/Temp > 101, (Reported) Clonidine Hcl* (Catapres*), 0.1 MG ORAL EVERY 8 HOURS PRN for For High Blood Pressure, (Reported) Hydromorphone HCl (Hydromorphone HCl), 1 MG IJ EVERY 4 HOURS PRN for Severe Pain (Pain Scale 7-10), (Reported) Hydromorphone HCl in 0.9% NaCl (Hydromorphone 1 Mg/50 Ml-Ns), 1 MG IVP Q12HR PRN for For Pain, (Reported) Lorazepam* (Lorazepam*), 1 MG ORAL EVERY 6 HOURS PRN for For Anxiety, (Reported) Ondansetron* (Zofran*), 4 MG IV Q6H PRN for Nausea & Vomiting, (Reported) Oxycodone Hcl/Acetaminophen 10-325* (Oxycodone-Acetaminophen 10-325*), 1 TAB ORAL Q4H PRN for Breakthrough Pain, (Reported) Polyethylene Glycol 3350* (Miralax*), 17 GM ORAL DAILY PRN for Constipation, ( Reported) Zolpidem Tartrate* (Ambien*), 5 MG ORAL BEDTIME PRN for Insomnia, (Reported) Miscellaneous Medications Bacitracin/Polymyxin B Sulfate (Polysporin Ointment), 1 APPLIC TP, (Reported) Chlorhexidine Gluconate (Peridex), 15 ML MM, (Reported) Emtricitabine* (Emtriva*), 200 MG ORAL, (Reported) Ferrous Sulfate, Dried (Iron), 159 MG PO, (Reported) Hydromorphone Hcl (Dilaudid), 1 MG PO, (Reported) Insulin Aspart (Novolog Flexpen), (Reported) Ipratropium Paguate (Atrovent Hfa), 12.9 GM IH, (Reported) Lactobacillus Acidophilus (Probiotic), 1 EACH PO, (Reported) Nelfinavir Mesylate (Viracept), 625 MG PO, (Reported) Propylene Glycol/Peg 400 (Systane 0.3-0.4% Eye Drops), 15 ML OP, (Reported) Tenofovir Disoproxil Fumarate* (Viread*), 300 MG ORAL, (Reported) Discontinued Medications Bacitracin/Polymyxin B Sulfate (Polysporin Powder*), 1 APPLIC TOPIC, (Reported) Discontinued Reason: Therapy completed Doxercalciferol (Hectorol), 2.5 MCG PO, (Reported) Discontinued Reason: Therapy completed Epoetin Jeremiah (Epogen), 10,000 UNIT SUBQ THREE TIMES A WEEK, (Reported) Discontinued Reason: Therapy completed Estrogens Conjugated (Premarin), 0.625 MG ORAL DAILY, (Reported) Discontinued Reason: Therapy completed Gentamicin In Nacl, Iso-Osm (Gentamicin 80 Mg/Ns 100 Ml Pb), 80 MG IV, (Reported ) Discontinued Reason: Therapy completed Nateglinide (Starlix), 120 MG ORAL QID, (Reported) Discontinued Reason: Therapy completed Nateglinide (Starlix), 120 MG ORAL THREE TIMES A DAY, (Reported) Discontinued Reason: Therapy completed Sodium Hypochlorite (Dakin's), 473 ML TOPIC DAILY, (Reported) Discontinued Reason: Therapy completed Patient History Healthcare decision maker Resuscitation status Full Code Advanced Directive on File No Past Medical/Surgical History Past Medical/Surgical History: (1) Peripheral vascular disease (2) Osteomyelitis (3) Hyperkalemia (4) Shortness of breath (5) Vascular disease (6) ESRD (end stage renal disease) (7) HIV disease (8) Diabetes mellitus out of control Physical Exam General Appearance: no apparent distress Lines, tubes and drains: peripheral, central line HEENT: normocephalic, atraumatic Neck: non-tender, normal alignment Respiratory/Chest: chest wall non-tender, lungs clear Cardiovascular/Chest: normal peripheral pulses, normal rate Abdomen: normal bowel sounds, non tender Genitourinary/Rectal: normal prostate exam Extremities: non-tender Neurologic: lump roller II-XII grossly normal, no motor/sensory deficits Last 24 Hour Vital Signs Date Time Temp Pulse Resp B/P Pulse Ox O2 Delivery O2 Flow Rate FiO2 05/14/16 13:24 71 05/14/16 12:24 97.6 74 23 132/47 100 Room Air 05/14/16 12:20 74 23 132/47 100 Room Air 05/14/16 09:30 97.6 64 18 121/47 100 Room Air 05/14/16 08:52 97.6 05/14/16 08:52 97.6 05/14/16 06:52 97.6 63 18 137/44 100 Room Air 05/14/16 06:07 97.6 68 12 141/57 98 Room Air 05/14/16 02:59 63 14 127/80 100 Room Air 05/14/16 02:07 97.6 05/14/16 01:31 97.6 61 18 140/62 100 Room Air 05/14/16 00:42 60 16 144/53 95 Room Air Laboratory Tests Test 05/14/16 01:23 White Blood Count 5.8 K/UL (4.8-10.8) Red Blood Count 3.64 M/UL (4.20-5.40) L Hemoglobin 11.1 G/DL (12.0-16.0) L Hematocrit 35.3 % (37.0-47.0) L Mean Corpuscular Volume 97 FL (80-99) Mean Corpuscular Hemoglobin 30.5 PG (27.0-31.0) Mean Corpuscular Hemoglobin Concent 31.5 G/DL (32.0-36.0) L Red Cell Distribution Width 16.2 % (11.6-14.8) H Platelet Count 213 K/UL (150-450) Mean Platelet Volume 7.8 FL (6.5-10.1) Neutrophils (%) (Auto) 45.1 % (45.0-75.0) Lymphocytes (%) (Auto) 32.1 % (20.0-45.0) Monocytes (%) (Auto) 12.9 % (1.0-10.0) H Eosinophils (%) (Auto) 7.7 % (0.0-3.0) H Basophils (%) (Auto) 2.2 % (0.0-2.0) H Prothrombin Time 11.0 SEC (9.30-11.50) Prothromb Time International Ratio 1.1 (0.9-1.1) Activated Partial Thromboplast Time 23 SEC (23-33) Sodium Level 137 mEQ/L (135-145) Potassium Level 5.8 mEQ/L (3.4-4.9) H Chloride Level 91 mEQ/L (98-107) L Carbon Dioxide Level 20 mEQ/L (20-30) Anion Gap 26 (5-15) H Blood Urea Nitrogen 95 mg/dL (7-23) H Creatinine 10.1 mg/dL (0.5-0.9) H Estimat Glomerular Filtration Rate 4.7 mL/min (>60) Glucose Level 79 mg/dL (74-106) Calcium Level 9.7 mg/dL (8.6-10.2) Total Bilirubin 0.8 mg/dL (0.0-1.2) Aspartate Amino Transf (AST/SGOT) 49 U/L (5-40) H Alanine Aminotransferase (ALT/SGPT) 34 U/L (3-33) H Alkaline Phosphatase 152 U/L (35-104) H Total Creatine Kinase 41 U/L (26-140) Troponin I < 0.30 ng/mL (<=0.30) C-Reactive Protein, Quantitative 1.1 mg/dL (< 0.5) H Pro-B-Type Natriuretic Peptide 89526 pg/mL (0-125) H Total Protein 8.1 g/dL (6.6-8.7) Albumin 3.7 g/dL (3.5-5.2) Globulin 4.4 g/dL Albumin/Globulin Ratio 0.8 (1.0-2.7) L Height (Feet): 5 Height (Inches): 8.00 Weight (Pounds): 185 Assessment/Plan Problem List: (1) Shortness of breath ICD Codes: R06.02 - Shortness of breath SNOMED: 477009405 (2) Hyperkalemia ICD Codes: E87.5 - Hyperkalemia SNOMED: 26874562 (3) Peripheral vascular disease ICD Codes: I73.9 - Peripheral vascular disease, unspecified SNOMED: 901896757 (4) Diabetes mellitus out of control ICD Codes: E11.65 - Type 2 diabetes mellitus with hyperglycemia SNOMED: 448249100 Qualifiers: (5) HIV disease ICD Codes: B20 - Human immunodeficiency virus [HIV] disease SNOMED: 78795527 (6) Vascular disease ICD Codes: I99.9 - Unspecified disorder of circulatory system SNOMED: 30011172 (7) ESRD (end stage renal disease) ICD Codes: N18.6 - End stage renal disease SNOMED: 81770926 (8) Osteomyelitis ICD Codes: M86.9 - Osteomyelitis, unspecified SNOMED: 72466412 Assessment/Plan treat hyperkalemia HD respiratory treatment titrate fio2 telemetry for now might go to med/surg after HD sliding scale diabetic diet MIGUEL PICHARDO May 14, 2016 14:52
[2016-05-14] MEDS ORDERED: DuoNeb 0.5-3(2.5)mg/3ml neb HHN PRN (15:00)
[2016-05-14] MEDS ORDERED: Mylanta II UD 30ml ORAL PRN (15:00)
[2016-05-14] MEDS ORDERED: Ketorolac 30mg Inj IV PRN ×2 (15:00→16:42)
[2016-05-14] MEDS ORDERED: Morphine Sulfate 2mg/ml Inj IVP PRN (15:00)
[2016-05-14] MEDS ORDERED: Miralax 17gm pkt ORAL PRN (15:00)
[2016-05-14] MEDS ORDERED: Nitroglycerin Subl 0.4mg tab (Bottle Of 25) SL PRN (15:00)
[2016-05-14] MEDS: NovoLOG Insulin Flexpen SUBQ SCH ×2 (16:02→20:15)
[2016-05-14] MEDS ORDERED: HYDROmorphone 2mg tab ORAL PRN (16:45)
[2016-05-14] MEDS ORDERED: HYDROmorphone 1mg/ml Carpuject IVP SCH (17:00)
[2016-05-14] MEDS: Renvela 2400 mg pkt ORAL SCH (18:00)
[2016-05-14] MEDS: DiphenhydrAMINE 50mg/ml Inj IVPB SCH (18:00)
[2016-05-14] MEDS: Renvela 800mg Pkt ORAL SCH (18:00)
[2016-05-14] MEDS: Lanthanum 1000mg tab ORAL SCH (18:20)
[2016-05-14] MEDS: Minoxidil 2.5mg tab ORAL SCH (20:32)
[2016-05-14] MEDS ORDERED: Heparin 5000 units/ml inj SUBQ SCH (21:00)
--- NOTE | 2016-05-14 21:27 | Cardiology Report ---
APPROVED REPORT EKG Measurement Heart [id number] Normal sinus rhythm Left anterior fascicular block Moderate voltage criteria for LVH, may be normal variant Septal infarct, age undetermined Abnormal ECG
[2016-05-15] VITALS (11 sets, daily range): BP systolic 124–185; BP diastolic 50–64
[2016-05-15] MEDS: DiphenhydrAMINE 50mg/ml Inj IVPB SCH ×4 (00:10→18:11)
[2016-05-15] MEDS: Renvela 800mg Pkt ORAL SCH ×3 (06:16→16:30)
[2016-05-15] MEDS: Renvela 2400 mg pkt ORAL SCH ×3 (06:16→16:30)
[2016-05-15] MEDS: NovoLOG Insulin Flexpen SUBQ SCH ×4 (06:30→21:00)
[2016-05-15] MEDS ORDERED: D5 1/2NS 1,000 ML IV SCH (08:15)
[2016-05-15 08:46] LABS: BASOPHILS % (AUTO) 1.1 % (0.0-2.0); EOSINOPHILS % (AUTO) 7.8 % (0.0-3.0); LYMPHOCYTES % (AUTO) 36.6 % (20.0-45.0); MEAN CORPUSCULAR HEMOGLOBIN 30.9 PG (27.0-31.0); MEAN CORPUSCULAR HGB CONC 32.6 G/DL (32.0-36.0); MEAN CORPUSCULAR VOLUME 95 FL (80-99); NEUTROPHILS % (AUTO) 42.5 % (45.0-75.0); PLATELET COUNT 207 K/UL (150-450); RED BLOOD COUNT 3.32 M/UL (4.70-6.10); WHITE BLOOD COUNT 5.2 K/UL (4.8-10.8)
[2016-05-15 08:53] LABS: ALBUMIN/GLOBULIN RATIO 0.7 (1.0-2.7); CALCIUM 9.3 mg/dL (8.6-10.2); CREATININE 7.8 mg/dL (0.7-1.2); GLOMERULAR FILTRATION RATE 8.6 mL/min (>60); POTASSIUM 4.3 mEQ/L (3.4-4.9); TOTAL PROTEIN 7.5 g/dL (6.6-8.7)
[2016-05-15] MEDS: Lanthanum 1000mg tab ORAL SCH ×3 (09:00→18:00)
[2016-05-15] MEDS ORDERED: Emtricitabine 200mg tab ORAL SCH ×2 (09:00)
[2016-05-15] MEDS: Minoxidil 2.5mg tab ORAL SCH ×2 (09:00→21:35)
[2016-05-15 09:02] LABS: CHOLESTEROL/HDL RATIO 2.7 (3.3-4.4); THYROID STIMULATING HORMONE 4.91 uIU/mL (0.300-4.500)
--- NOTE | 2016-05-15 11:09 | Pulmonology Progress Note ---
Assessment/Plan Problems: (1) Shortness of breath (2) Hyperkalemia (3) Peripheral vascular disease (4) Diabetes mellitus out of control (5) HIV disease (6) Vascular disease (7) ESRD (end stage renal disease) (8) Osteomyelitis Assessment/Plan improivng for surgery today HD respiratory treatment titrate fio2 med/surg after HD sliding scale diabetic diet Subjective ROS Limited/Unobtainable: No Interval Events: no new complains, surgery scheduled for today Allergies: Coded Allergies: HEPARIN (Verified Allergy, Severe, low platelets, 06/11/14) SULFA (SULFONAMIDE ANTIBIOTICS) (Verified Allergy, Severe, nephro toxic, ) ZOLPIDEM (Verified Allergy, Unknown, 05/03/16) MEROPENEM (Verified Adverse Reaction, Intermediate, 04/01/16) Nausea and vomiting Uncoded Allergies: pork products (Allergy, Severe, rashes, 06/11/14) Objective Last 24 Hour Vital Signs Date Time Temp Pulse Resp B/P Pulse Ox O2 Delivery O2 Flow Rate FiO2 05/15/16 09:00 80 153/64 05/15/16 09:00 153/64 05/15/16 09:00 80 153/64 05/15/16 08:17 97.4 80 20 153/64 96 Room Air 05/15/16 08:00 81 05/15/16 07:00 80 20 Room Air 21 05/15/16 04:00 70 05/15/16 04:00 97.7 76 20 160/51 95 Room Air 05/15/16 00:00 97.9 79 20 124/57 99 Room Air 05/14/16 23:37 78 05/14/16 20:32 156/56 05/14/16 20:00 87 05/14/16 20:00 98.6 84 21 162/59 98 Room Air 05/14/16 16:53 97.9 05/14/16 16:48 Room Air 05/14/16 16:44 Room Air 05/14/16 16:00 89 05/14/16 16:00 98.8 88 20 144/47 98 Room Air 05/14/16 13:24 71 05/14/16 12:40 97.9 72 20 151/44 98 Room Air 05/14/16 12:30 Room Air 05/14/16 12:24 97.6 74 23 132/47 100 Room Air 05/14/16 12:20 74 23 132/47 100 Room Air Intake and Output 05/14/16 05/15/16 19:00 07:00 Intake Total 120 ml Output Total 2300 ml Balance -2180 ml Intake Oral 120 ml Output Hemodialysis UF 2300 ml General Appearance: WD/WN HEENT: normocephalic, atraumatic Respiratory/Chest: chest wall non-tender, lungs clear Cardiovascular: normal peripheral pulses, normal rate Abdomen: normal bowel sounds, soft, non tender Genitourinary: normal external genitalia Skin: no rash Neurologic/Psychiatric: can dryer II-XII grossly normal Lymphatic: no neck adenopathy Laboratory Tests 05/15/16 04:30: White Blood Count 5.2, Red Blood Count 3.32L, Hemoglobin 10.3L, Hematocrit 31.5L , Mean Corpuscular Volume 95, Mean Corpuscular Hemoglobin 30.9, Mean Corpuscular Hemoglobin Concent 32.6, Red Cell Distribution Width 16.0H, Platelet Count 207, Mean Platelet Volume 8.0, Neutrophils (%) (Auto) 42.5L, Lymphocytes (%) (Auto) 36.6, Monocytes (%) (Auto) 12.0H, Eosinophils (%) (Auto) 7.8H, Basophils (%) (Auto) 1.1, Sodium Level 132L, Potassium Level 4.3, Chloride Level 90L, Carbon Dioxide Level 19L, Anion Gap 23H, Blood Urea Nitrogen 64#H, Creatinine 7.8H, Estimat Glomerular Filtration Rate 8.6, Glucose Level 63L, Hemoglobin A1c 4.1, Calcium Level 9.3, Total Bilirubin 0.7, Aspartate Amino Transf (AST/SGOT) 50H, Alanine Aminotransferase (ALT/SGPT) 34, Alkaline Phosphatase 133H, Total Protein 7.5, Albumin 3.2L, Globulin 4.3, Albumin/Globulin Ratio 0.7L, Triglycerides Level 188H, Cholesterol Level 145, LDL Cholesterol 53L, HDL Cholesterol 54, Cholesterol/HDL Ratio 2.7L, Thyroid Stimulating Hormone (TSH) 4.910H Current Medications Medications (Trade) Dose Ordered Sig/Zohaib Route PRN Reason Start Time Stop Time Status Last Admin Dose Admin Acetaminophen (Tylenol) 650 mg Q4H PRN ORAL fever 05/14/16 15:00 06/13/16 14:59 Al Hydroxide/Mg Hydroxide (Mylanta II) 30 ml Q6H PRN ORAL dyspepsia 05/14/16 15:00 06/13/16 14:59 Albuterol/ Ipratropium (DuoNeb 0.5-3(2.5)mg/3ml) 3 ml EVERY 4 HOURS PRN HHN Shortness of Breath 05/14/16 15:00 05/19/16 14:59 Clonidine HCl (Catapres) 0.1 mg EVERY 8 HOURS PRN ORAL SBP>160 05/14/16 15:00 06/13/16 14:59 Dextrose (Dextrose 50%) STAT PRN IV Hypoglycemia 05/14/16 15:00 06/13/16 14:59 05/15/16 06:54 Dextrose/Sodium Chloride (D5 0.45% NS) 1,000 ml @ 50 mls/hr Q20H IV 05/15/16 08:15 06/14/16 08:14 05/15/16 09:24 Diphenhydramine HCl (Benadryl) 50 mg EVERY 6 HOURS IVPB 05/14/16 18:00 06/13/16 17:59 05/15/16 00:10 Emtricitabine (Emtriva) 200 mg DAILY ORAL 05/15/16 09:00 06/14/16 08:59 UNV Hydromorphone HCl 2 mg 2 mg Q4H PRN IVP mod-sev pain 05/14/16 19:30 05/21/16 19:29 05/15/16 07:54 Insulin Aspart (NovoLOG) BEFORE MEALS AND HS SUBQ 05/14/16 16:30 06/13/16 16:29 Ketorolac Tromethamine (Toradol 30mg) 30 mg EVERY 6 HOURS PRN IV Mild Pain (Pain Scale 1-3) 05/14/16 16:42 05/19/16 14:59 Lanthanum Carbonate (Fosrenol) 1,500 mg TID ORAL 05/14/16 18:00 06/13/16 17:59 05/14/16 18:20 Metoprolol Succinate (Toprol XL) 25 mg DAILY ORAL 05/15/16 09:00 06/14/16 08:59 Minoxidil (Loniten) 2.5 mg Q12HR ORAL 05/14/16 21:00 2/15/17 20:59 05/14/16 20:32 Nifedipine (Procardia XL) 60 mg DAILY ORAL 05/15/16 09:00 06/14/16 08:59 Nitroglycerin (Ntg) 0.4 mg Q5M X 3 DOSES PRN SL Prn Chest Pain 05/14/16 15:00 06/13/16 14:59 Ondansetron HCl (Zofran) 4 mg Q6H PRN IVP Nausea & Vomiting 05/14/16 15:00 06/13/16 14:59 Polyethylene Glycol (Miralax) 17 gm HSPRN PRN ORAL Constipation 05/14/16 15:00 06/13/16 14:59 Ranitidine HCl (Zantac) 150 mg DAILY ORAL 05/15/16 09:00 06/14/16 08:59 Sevelamer Carbonate (Renvela) 800 mg TIAC ORAL 05/14/16 18:00 06/13/16 17:59 Sevelamer Carbonate (Renvela) 2,400 mg TIAC ORAL 05/14/16 18:00 06/13/16 17:59 Temazepam (Restoril) 15 mg HSPRN PRN ORAL Insomnia 05/14/16 15:00 05/21/16 14:59 Tenofovir Disoproxil Fumarate (Viread) 300 mg DAILY ORAL 05/15/16 09:00 06/14/16 08:59 MIGUEL HERNDON May 15, 2016 11:09
--- NOTE | 2016-05-15 12:28 | General Progress Note ---
Progress Note Progress Note [id number] Full note dictated LB SON May 15, 2016 12:28
[2016-05-15] MEDS ORDERED: Bupivacaine 0.25% Inj 30ml INJ ONE (13:15)
[2016-05-15] MEDS ORDERED: Bupivacaine 0.5% Inj 30 ml vial INJ ONE (13:15)
--- NOTE | 2016-05-15 14:29 | Wound Care Consultation ---
Wound Assessment Wound Assessment #1: Wound Present on Admission: Yes New Wound: No Status Change of Wound: No Wound Location Body Site Modif: mid Wound Location Body Site: sacral Wound Type: pressure ulcer Alexandra Test: Does not Alexandra Pressure Ulcer Stage: II Wound Thickness: Partial Thickness Wound Length: 1.5 Wound Width: 1.5 Wound Depth: 0.1 Percent of Wound Spry/Red: 100 Wound Drainage Description: Serosanguineous Wound Drainage Amount: Scant Wound Drainage Odor: Mild Odor Tissue Surrounding Wound: Erythemic Wound General Appearance: Reddened Wound Assessment #2: Wound Number: #2 Wound Present on Admission: Yes New Wound: No Status Change of Wound: No Wound Location Body Site Modif: left, lateral Wound Location Body Site: foot Wound Type: vascular wound Alexandra Test: Does not Alexandra Wound Thickness: Full Thickness Wound Length: 7.5 Wound Width: 4.0 Wound Depth: 0.3 Percent of Wound Spry/Red: 100 Wound Drainage Description: Serosanguineous Wound Drainage Amount: Scant Wound Drainage Odor: None/Absent Tissue Surrounding Wound: Macerated Wound General Appearance: Reddened, Well Approximated, Draining Wound Assessment #3: Wound Number: #3 Wound Present on Admission: Yes New Wound: No Status Change of Wound: No Wound Location Body Site Modif: right, anterior Wound Location Body Site: toe - 2nd Wound Type: scab Alexandra Test: Does not Alexandra Wound Thickness: Full Thickness Wound Length: 1.5 Wound Width: 1.0 Wound Depth: utd Percent of Wound Black/Brown: 100 Wound Drainage Amount: None Wound Drainage Odor: None/Absent Tissue Surrounding Wound: Indurated Wound General Appearance: Blackened Wound Assessment #4: Wound Number: #4 Wound Present on Admission: Yes New Wound: No Status Change of Wound: No Wound Location Body Site Modif: right, lateral Wound Location Body Site: metatarsal head - 5th Wound Type: scar Alexandra Test: Does not Alexandra Wound Thickness: Full Thickness Wound Length: 2.0 Wound Width: 1.5 Wound Depth: utd Percent of Wound Black/Brown: 100 Wound Drainage Amount: None Wound Drainage Odor: None/Absent Tissue Surrounding Wound: Indurated Wound General Appearance: Blackened Wound Assessment #5: Wound Number: #5 Wound Present on Admission: Yes New Wound: No Status Change of Wound: No Wound Location Body Site Modif: right, lateral Wound Location Body Site: toe - 5th Wound Type: scab Alexandra Test: Does not Alexandra Wound Thickness: Full Thickness Wound Length: 1.5 Wound Width: 1.5 Wound Depth: utd Percent of Wound Black/Brown: 100 Wound Drainage Amount: None Wound Drainage Odor: None/Absent Tissue Surrounding Wound: Indurated Wound General Appearance: Blackened Wound Comment #1 Sacral stage II pressure ulcer #2 Left lateral foot s/p amputation open wound with wound vac #3 Right lateral 5th metatarsal DTI with dry scab adhered to the wound bed #4 Right lateral 5th toe DTI with dry scab adhered to the wound bed Pt with Hx of ESRF, HIV, HTN, PVD to name the few. Hx Left toes and left lateral foot amputation. Pt is schedule for right 2nd toe amputation today. Recommendation -DR Blackburn on the case -Local wound care on both feet as ordered by MD -Local wound care with Triad cream and dry drg on sacral area -Offload both heels -Optimize nutrition -Turn and reposition -Keep clean and dry -Assess and f/u with DR Blackburn for any changes on both feet SCOOBY UP RN May 15, 2016 14:29
--- NOTE | 2016-05-15 14:58 | Pre-Procedure Note/Attestation ---
Pre-Procedure Note/Attestation Complete Prior to Procedure Planned Procedure: right Procedure Narrative: Amputation right 2nd toe Indications for Procedure Pre-Operative Diagnosis: 1) Non pressure ulcer right 2nd toe 2) Osteomyelitis right 2nd toe 3) DM 4) PVD 5) ESRD 6) HIV Attestation I attest that I discussed the nature of the procedure; its benefits; risks and complications; and alternatives (and the risks and benefits of such alternatives ), prior to the procedure, with the patient (or the patient's legal underwriting sales representative). I attest that, if there was a reasonable possibility of needing a blood transfusion, the patient (or the patient's legal underwriting sales representative) was given the [place] Department [employer] standardized written summary, pursuant to the [place] Blood Safety Act ([place] Health and Safety Code # 1645, as amended). I attest that I re-evaluated the patient just prior to the surgery and that there has been no change in the patient's H&P, except as documented below: Victor Hugo Blackburn DPM May 15, 2016 14:58
[2016-05-15] MEDS ORDERED: Propofol 10mg/ml 20ml IV ONE (15:27)
[2016-05-15] MEDS ORDERED: Sterile Water Irrig 1000ml IRRIG ONE (15:30)
[2016-05-15] MEDS ORDERED: fentaNYL 100 mcg/2 mL IV ONE (15:30)
[2016-05-15] MEDS ORDERED: Midazolam 2mg/2ml Inj ONE (15:30)
[2016-05-15] MEDS ORDERED: Labetalol 5mg/ml 20ml vial IV ONE (15:30)
--- NOTE | 2016-05-15 15:33 | Anethesia Preoperative Eval ---
Anesthesia Pre-op PMH/ROS General Date of Evaluation: May 15, 2016 Anesthesiologist: Phillip ASA Score: ASA 4 Mallampati Score Class I : Soft palate, uvula, fauces, pillars visible Class II: Soft palate, uvula, fauces visible Class III: Soft palate, base of uvula visible Class IV: Only hard plate visible Mallampati Classification: Class III Surgeon: Alexey Diagnosis: Right 2nd toe osteomyelitis Surgical Procedure: AMputation right second toe Anesthesia History: none Family History: no anesthesia problems Allergies: Coded Allergies: HEPARIN (Verified Allergy, Severe, low platelets, 06/11/14) SULFA (SULFONAMIDE ANTIBIOTICS) (Verified Allergy, Severe, nephro toxic, ) ZOLPIDEM (Verified Allergy, Unknown, 05/03/16) MEROPENEM (Verified Adverse Reaction, Intermediate, 04/01/16) Nausea and vomiting Uncoded Allergies: pork products (Allergy, Severe, rashes, 06/11/14) Medications: see eMAR Past Medical History Cardiovascular: Reports: HTN, other - CHF, Denies: CAD, [place], arrhythmia, valve dz Pulmonary: Reports: MALIKA - central, severe, Denies: COPD, asthma, other Gastrointestinal/Genitourinary: Reports: ESRD, GERD, Denies: CRI, other Neurologic/Psychiatric: 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 Exam Physician Exam Last Vital Signs Date Time Temp Pulse Resp B/P Pulse Ox O2 Delivery O2 Flow Rate FiO2 05/15/16 11:50 97.5 76 18 144/50 100 Room Air 05/15/16 07:00 21 Constitutional: NAD Cardiovascular: RRR Respiratory: CTA Airway Exam Mallampati Score: Class III MO: full ROM: limited Anesthesia Pre-op A/P Labs Hematology Test 05/15/16 04:30 White Blood Count 5.2 K/UL (4.8-10.8) Red Blood Count 3.32 M/UL (4.70-6.10) L Hemoglobin 10.3 G/DL (14.2-18.0) L Hematocrit 31.5 % (42.0-52.0) L Mean Corpuscular Volume 95 FL (80-99) Mean Corpuscular Hemoglobin 30.9 PG (27.0-31.0) Mean Corpuscular Hemoglobin Concent 32.6 G/DL (32.0-36.0) Red Cell Distribution Width 16.0 % (11.6-14.8) H Platelet Count 207 K/UL (150-450) Mean Platelet Volume 8.0 FL (6.5-10.1) Neutrophils (%) (Auto) 42.5 % (45.0-75.0) L Lymphocytes (%) (Auto) 36.6 % (20.0-45.0) Monocytes (%) (Auto) 12.0 % (1.0-10.0) H Eosinophils (%) (Auto) 7.8 % (0.0-3.0) H Basophils (%) (Auto) 1.1 % (0.0-2.0) Chemistry Test 05/15/16 04:30 Sodium Level 132 mEQ/L (135-145) L Potassium Level 4.3 mEQ/L (3.4-4.9) Chloride Level 90 mEQ/L (98-107) L Carbon Dioxide Level 19 mEQ/L (20-30) L Anion Gap 23 (5-15) H Blood Urea Nitrogen 64 mg/dL (7-23) #H Creatinine 7.8 mg/dL (0.7-1.2) H Estimat Glomerular Filtration Rate 8.6 mL/min (>60) Glucose Level 63 mg/dL (74-106) L Hemoglobin A1c 4.1 % (< 6.0) Calcium Level 9.3 mg/dL (8.6-10.2) Total Bilirubin 0.7 mg/dL (0.0-1.2) Aspartate Amino Transf (AST/SGOT) 50 U/L (5-40) H Alanine Aminotransferase (ALT/SGPT) 34 U/L (3-41) Alkaline Phosphatase 133 U/L (40-129) H Total Protein 7.5 g/dL (6.6-8.7) Albumin 3.2 g/dL (3.5-5.2) L Globulin 4.3 g/dL Albumin/Globulin Ratio 0.7 (1.0-2.7) L Triglycerides Level 188 mg/dL (< 150) H Cholesterol Level 145 mg/dL (< 200) LDL Cholesterol 53 mg/dL (60-99) L HDL Cholesterol 54 mg/dL (> 60) Cholesterol/HDL Ratio 2.7 (3.3-4.4) L Thyroid Stimulating Hormone (TSH) 4.910 uIU/mL (0.300-4.500) Studies Pre-op Studies: EKG - SR Risk Assessment & Plan Assessment: ASA RIO Plan: GA Status Change Before Surgery: No Pre-Antibiotics Drug: Ancef 2g Given Within 1 Hr of Incision: Yes Time Given: 15:35 ROBERT PATEL M.D. May 15, 2016 15:33
[2016-05-15] MEDS ORDERED: DiphenhydrAMINE 50mg/ml Inj IVP PRN (16:00)
[2016-05-15] MEDS ORDERED: fentaNYL 100 mcg/2 mL IV PRN (16:00)
--- NOTE | 2016-05-15 16:00 | Immediate Post-Op Evaluation ---
Immediate Post-Op Evalulation Immediate Post-Op Evalulation Procedure: Right foot 2nd toe amputation Date of Evaluation: May 15, 2016 Time of Evaluation: 16:23 IV Fluids: 150 Blood Products: 0 Estimated Blood Loss: min Urinary Output: 0 Blood Pressure Systolic: 140 Blood Pressure Diastolic: 58 Pulse Rate: 76 Respiratory Rate: 18 O2 Sat by Pulse Oximetry: 100 Temperature (Fahrenheit): 98.4 Pain Score (1-10): 0 Nausea: No Vomiting: No Complications 0 Patient Status: awake, reacts, patent, none Hydration Status: adequate Drug: Ancef 2g Given Within 1 Hr of Incision: Yes Time Given: 15:35 ROBERT PATEL M.D. May 15, 2016 16:00
--- NOTE | 2016-05-15 16:57 | Brief Operative Note ---
Immediate Post Operative Note Operative Note Chief Complaint: Dict# [id number] Pre-op Diagnosis: 1) Non pressure ulcer right 2nd toe 2) Osteomyelitis right 2nd toe 3) DM 4) PVD 5) ESRD 6) HIV Procedure: Amputation right 2nd toe Post-op Diagnosis: same as pre-op Surgeon: Victor Hugo Blackburn DPM Office Helper Clerical: none Additional Surgeons: none Anesthesiologist: Dr Rees Anesthesia: local, MAC Specimen: yes - right 2nd toe disarticulated at MPJ Complications: none Condition: stable Estimated Blood Loss: volume - 15 Drains: none Implant(s) used?: No Victor Hugo Blackburn DPM May 15, 2016 16:57
[2016-05-15] MEDS ORDERED: NS Irrig 1000ml IRRIG ONE (17:40)
[2016-05-15] MEDS ORDERED: Bacitracin 50000 Units Vial IRRIG ONE (17:40)
--- NOTE | 2016-05-15 20:48 | Consultation ---
DATE OF CONSULTATION: 05/15/2016 NEPHROLOGY CONSULTATION: REFERRING PHYSICIAN: Louis Barahona D.O. REASON FOR CONSULTATION: End-stage renal disease. HISTORY OF PRESENT ILLNESS: The patient is a 60-year-old male with past medical history significant for history of HIV, end-stage renal disease, anemia of chronic kidney disease, renal osteodystrophy, hypertension, peripheral vascular disease, and status post multiple revascularization procedure by Dr. Dang for lower extremity. The patient was basically discharged home two days ago after he had his dialysis. He was again came back for hyperkalemia and possible need of amputation. Based on the conversation that I had while the patient as an inpatient. The patient originally was on as needed, the claimed that she is able to do the home dialysis and she has been doing it for the last six days. When the patient was discharged, so he did not require any outpatient dialysis setup and the last dialysis was on Saturday. On Saturday, the patient again came back to the emergency room with hyperkalemia, receiving dialysis for last two days. Although the patient main concern was incision and drainage of the lower extremity wound, but there is a difficulty in terms of the placement. The also refusing any outpatient dialysis nor any kind of subacute treatment. PAST MEDICAL HISTORY: Including, 1. End-stage renal disease. 2. Anemia of chronic kidney disease. 3. Renal osteodystrophy. 4. Hypertension. 5. History of hemorrhagic telangiectasia. 6. History of revascularization of the lower extremities. 7. History of AV fistula placement. MEDICATIONS: reviewed. ALLERGIES: He is allergic to heparin, sulfa, and pork. SOCIAL HISTORY: He lives at home and basically the claims for the last 5 to 6 years, the patient has been living in a hospital and there was no history of tobacco, alcohol, or drug use. FAMILY HISTORY: Noncontributory. REVIEW OF SYSTEMS: Basically, the patient on admission complained of mild shortness of breath. Otherwise, all other 14 systems were reviewed and negative. PHYSICAL EXAMINATION: VITAL SIGNS: The patient had temperature of 98.0 degrees, blood pressure 150/68, pulse rate of 76, and respiratory rate of 18. HEAD AND NECK: No JVP. No LAD. No thyromegaly. Extraocular movement intact. Pupils are reactive to light and accommodation. LUNGS: Decreased breathing sound on the both sides. CARDIAC: Regular rate and rhythm. S1-S2. No murmur. No rub. ABDOMEN: Soft, nontender, and nondistended. No organomegaly. EXTREMITIES: Trace edema. No clubbing. No cyanosis. NEUROLOGIC: Cranial nerves II to XII within normal limits. Upper and lower extremities are grossly intact. LABORATORY AND DIAGNOSTIC DATA: On admission, the patient has CBC revealed WBC count of 5.8, hemoglobin of 11.1, hematocrit of 35, platelet count of 231,000. Chemistry reveals sodium 137, potassium 5.8, 91 chloride, 95 BUN, creatinine of 10, and glucose of 79. AST of 49, ALT of 34, and alkaline phosphatase of 59. ASSESSMENT: 1. End-stage renal disease. 2. Anemia of chronic kidney disease. 3. Renal osteodystrophy. 4. Peripheral vascular disease. 5. Bilateral lower extremity osteomyelitis. PLAN: Plan for the patient to continue with current IV antibiotics. Plan for patient to receive dialysis. Continued Epogen. Transfusion as needed. Incision and drainage of the wound by Dr. Blackburn today. Discharge planning post procedure. Again, I would like to thank Dr. Barahona for allowing me to participate in the care of this patient. Janis Olivo M.D. DR: Alfredo JOB#: [id number] CC:
--- NOTE | 2016-05-15 23:08 | Operative Note - Dictated ---
DATE OF OPERATION: 05/15/2016 SURGEON: Victor Hugo Blackburn D.P.M. MEDICAL CASE MANAGER SURGEON: None. ANESTHESIOLOGIST: Dr. Rees. TYPE OF ANESTHESIA: MAC with 5 mL of 0.5% plain Marcaine. PREOPERATIVE DIAGNOSES: 1. Nonpressure ulcer, right second toe. 2. Osteomyelitis right second toe. 3. Diabetes mellitus. 4. Peripheral vascular disease. 5. End-stage renal disease. 6. Human immunodeficiency virus. POSTOPERATIVE DIAGNOSES: 1. Nonpressure ulcer, right second toe. 2. Osteomyelitis right second toe. 3. Diabetes mellitus. 4. Peripheral vascular disease. 5. End-stage renal disease. 6. Human immunodeficiency virus. PROCEDURE PERFORMED: Amputation of the right second toe at the metatarsophalangeal joint. SPECIMENS SENT: Right second toe. COMPLICATIONS: None. ESTIMATED BLOOD LOSS: Was approximately 50 mL. ANTIBIOTICS: A 2 g of Ancef IV prior to the procedure. TOURNIQUET: No tourniquet was used. DRAINS: No drains were placed. OPERATIVE PROCEDURE: The patient was transported to the operating room and placed on the operating table in the supine position. Anesthesiologist then began IV sedation. The right foot was scrubbed, prepped, and draped in an usual aseptic manner. A 5 mL of local anesthesia was used digital block of the second metatarsal. After anesthesia check, elliptical incision was made longitudinally from the dorsal to plantar surrounding the second toe. This was deepened through subcutaneous layers. Bleeders were cauterized. Metatarsophalangeal joint was identified and the toe was disarticulated. The second metatarsal head appeared firm and non diseased. No signs of acute infection were noted. No sinus tracts. No purulence was noted. The specimen was passed off the field to be submitted to pathology. Wound was copiously flushed with antibiotic impregnated saline. Deep tissues were coapted utilizing 3-0 Vicryl. Skin was coapted utilizing 3-0 nylon stitch. Dressings were applied. The patient tolerated the procedure and anesthesia well. Transported the recovery room in stable condition. The patient will return back to telemetry. Continued IV antibiotics. Nonweightbearing was ordered. Wound care was ordered. Further medical management as needed in order to treat his chronic wound of the left foot and wound VAC orders were placed for the left denisse.t diet was resumed. Preop medications will be resumed. Case was discussed in detail with his and understands the postoperative care that required. We will continue to follow . Victor Hugo Blackburn D.P.M. DR: Bob JOB#: [id number] CC: AMBAR
[2016-05-16 00:01] VITALS: BP 168/75
--- NOTE | 2016-05-16 00:08 | History and Physical Report ---
DATE OF ADMISSION: 05/14/2016 TIME: 1 p.m. CONSULTANTS: 1. Janis Olivo M.D. 2. Yesenia Conway M.D. 3. Olya Owen M.D. CHIEF COMPLAINT: PVD, gangrene foot, and renal failure on dialysis. BRIEF HISTORY: This is a 60-year-old male with history of PVD and ESRD on dialysis comes back to hospital for pending surgery. Currently, calm in bed. No complaints. PAST MEDICAL HISTORY: Include PVD, gangrene foot, renal failure on dialysis, bilateral lower extremity cellulitis, diabetes, hypertension, and anemia. PAST SURGICAL HISTORY: Stent placement. MEDICATIONS: Include Emtriva, Toprol, Procardia, Zantac, Viread, Dilaudid, Benadryl, and Renvela. ALLERGIES: Sulfa, meropenem, heparin, and zolpidem. SOCIAL HISTORY: No smoking. No alcohol. No intravenous drug use. FAMILY HISTORY: Noncontributory. REVIEW OF SYSTEMS: No chest pain. No shortness of breath. No nausea, vomiting, or diarrhea. PHYSICAL EXAMINATION: GENERAL: The patient is calm in bed, oriented x2, no acute distress. VITAL SIGNS: Temperature is 97 degrees, pulse 86, respiratory rate 18, and blood pressure 144/50. CARDIOVASCULAR: No murmur. LUNGS: Unable to palpate. ABDOMEN: Nontender and nondistended. EXTREMITIES: No cyanosis, clubbing, or edema bilaterally. Dressing is clean and dry. NEUROLOGICAL: The patient moving all extremities, does not follow commands, but slightly weak bilaterally. LABORATORY AND DIAGNOSTIC DATA: Labs show hemoglobin 10.3. Otherwise CBC is normal. BMP shows sodium 132, chloride 90, CO2 19, BUN and creatinine 64/7.8. Glucose is 63. Albumin is 3.2. INR is 1.1. ASSESSMENT: 1. Peripheral vascular disease. 2. Gangrene foot. 3. Renal failure on dialysis. 4. Bilateral lower extremity cellulitis. 5. Diabetes. 6. Hypertension. 7. Anemia. PLAN: 1. Continue premedications. 2. Wound care. 3. Antibiotics per Infectious Disease. 4. Blood pressure and blood sugar control. 5. Dialysis p.r.n. 6. CBC and BMP in the morning. 7. OT/PT and dietary evaluation. 8. Pending surgery with podiatry tomorrow. 9. We will continue to follow the patient. Louis Barahona D.O. DR: NEREIDA JOB#: [id number] CC:
[2016-05-16] MEDS: DiphenhydrAMINE 50mg/ml Inj IVPB SCH ×5 (00:18→23:36)
[2016-05-16] MEDS ORDERED: Nitroglycerin Subl 0.4mg tab (Bottle Of 25) SL PRN (01:30)
[2016-05-16] MEDS ORDERED: D5 1/2NS 1,000 ML IV SCH (01:30)
[2016-05-16] MEDS ORDERED: Mylanta II UD 30ml ORAL PRN (03:00)
[2016-05-16 04:00] VITALS: BP 162/81
[2016-05-16] MEDS ORDERED: DuoNeb 0.5-3(2.5)mg/3ml neb HHN PRN (05:00)
[2016-05-16] MEDS ORDERED: Ketorolac 30mg Inj IV PRN (06:00)
[2016-05-16] MEDS: NovoLOG Insulin Flexpen SUBQ SCH ×4 (06:08→20:21)
[2016-05-16] MEDS: Renvela 800mg Pkt ORAL SCH ×3 (06:08→17:15)
[2016-05-16] MEDS: Renvela 2400 mg pkt ORAL SCH ×3 (06:08→16:30)
--- NOTE | 2016-05-16 07:12 | General Progress Note ---
Assessment/Plan Problem List: (1) HIV disease ICD Codes: B20 - Human immunodeficiency virus [HIV] disease SNOMED: 13012621 (2) Diabetes mellitus out of control ICD Codes: E11.65 - Type 2 diabetes mellitus with hyperglycemia SNOMED: 376141261 Qualifiers: (3) ESRD (end stage renal disease) ICD Codes: N18.6 - End stage renal disease SNOMED: 77986502 (4) Osteomyelitis ICD Codes: M86.9 - Osteomyelitis, unspecified SNOMED: 92837064 Qualifiers: Qualified Codes: M86.679 - Other chronic osteomyelitis, unspecified ankle and foot Assessment/Plan s/p right second toe amputation glucose values are stable w/o Starlix for now continue Novolog SSI will add Starlix 60 mg ac tid if meal time glucose starts to rise Subjective Allergies: Coded Allergies: HEPARIN (Verified Allergy, Severe, low platelets, 06/11/14) SULFA (SULFONAMIDE ANTIBIOTICS) (Verified Allergy, Severe, nephro toxic, ) ZOLPIDEM (Verified Allergy, Unknown, 05/03/16) MEROPENEM (Verified Adverse Reaction, Intermediate, 04/01/16) Nausea and vomiting Uncoded Allergies: pork products (Allergy, Severe, rashes, 06/11/14) All Systems: reviewed and negative except above Subjective status post right second toe amputation 05/15/16 Objective Last 24 Hour Vital Signs Date Time Temp Pulse Resp B/P Pulse Ox O2 Delivery O2 Flow Rate FiO2 05/16/16 06:49 97.7 05/16/16 04:00 97.7 90 18 162/81 97 Room Air 05/16/16 00:28 165/57 05/16/16 00:01 98.8 57 19 168/75 96 Room Air 05/15/16 21:35 185/61 05/15/16 19:03 81 18 Room Air 21 05/15/16 17:30 98.6 74 18 185/61 100 Room Air 05/15/16 17:15 70 18 178/60 100 Room Air 05/15/16 17:00 71 18 176/61 100 Room Air 05/15/16 16:45 74 18 147/53 100 Simple Mask 8.0 05/15/16 16:33 75 18 147/52 100 Simple Mask 8.0 05/15/16 16:28 75 18 142/50 100 Simple Mask 8.0 05/15/16 16:23 98.4 76 18 140/58 100 Simple Mask 8.0 05/15/16 11:50 97.5 76 18 144/50 100 Room Air 05/15/16 09:00 80 153/64 05/15/16 09:00 153/64 05/15/16 09:00 80 153/64 05/15/16 08:17 97.4 80 20 153/64 96 Room Air 05/15/16 08:00 81 Intake and Output 05/15/16 05/16/16 19:00 07:00 Intake Total 400 ml 320 ml Balance 400 ml 320 ml Intake Oral 220 ml IV Total 400 ml 100 ml Height (Feet): 5 Height (Inches): 8.00 Weight (Pounds): 185 General Appearance: no apparent distress EENT: pale conjunctivae Neck: normal alignment Cardiovascular: normal rate Respiratory/Chest: normal breath sounds Abdomen: normal bowel sounds Pelvis: normal external exam Objective Current Medications Medications (Trade) Dose Ordered Sig/Zohaib Route PRN Reason Start Time Stop Time Status Last Admin Dose Admin Acetaminophen (Tylenol) 650 mg Q4H PRN ORAL fever 05/16/16 03:00 06/15/16 02:59 Al Hydroxide/Mg Hydroxide (Mylanta II) 30 ml Q6H PRN ORAL dyspepsia 05/16/16 03:00 06/15/16 02:59 Albuterol/ Ipratropium (DuoNeb 0.5-3(2.5)mg/3ml) 3 ml Q4H PRN HHN Shortness of Breath 05/16/16 05:00 05/21/16 04:59 Clonidine HCl (Catapres) 0.1 mg Q8H PRN ORAL SBP>160 05/16/16 02:00 06/15/16 01:59 Dextrose (Dextrose 50%) STAT PRN IV Hypoglycemia 05/16/16 15:00 06/15/16 14:59 Dextrose/Sodium Chloride (D5 0.45% NS) 1,000 ml @ 50 mls/hr Q20H IV 05/16/16 01:30 06/15/16 01:29 05/16/16 02:00 Diphenhydramine HCl (Benadryl) 50 mg EVERY 6 HOURS IVPB 05/16/16 06:00 06/15/16 05:59 05/16/16 06:08 Emtricitabine (Emtriva) 200 mg DAILY ORAL 05/16/16 09:00 06/15/16 08:59 UNV Hydromorphone HCl (Dilaudid) 2 mg Q4H PRN IVP mod-sev pain 05/16/16 02:00 05/23/16 01:59 05/16/16 06:08 Insulin Aspart (NovoLOG) BEFORE MEALS AND HS SUBQ 05/16/16 06:30 06/15/16 06:29 Ketorolac Tromethamine (Toradol 30mg) 30 mg EVERY 6 HOURS PRN IV Mild Pain (Pain Scale 1-3) 05/16/16 06:00 05/21/16 05:59 UNV Lanthanum Carbonate (Fosrenol) 1,500 mg TID ORAL 05/16/16 09:00 06/15/16 08:59 Metoprolol Succinate (Toprol XL) 25 mg DAILY ORAL 05/16/16 09:00 06/15/16 08:59 Minoxidil (Loniten) 2.5 mg Q12HR ORAL 05/16/16 09:00 06/15/16 08:59 Nifedipine (Procardia XL) 60 mg DAILY ORAL 05/16/16 09:00 06/15/16 08:59 Nitroglycerin (Ntg) 0.4 mg Q5M X 3 DOSES PRN SL Prn Chest Pain 05/16/16 01:30 06/15/16 01:29 Ondansetron HCl (Zofran) 4 mg Q6H PRN IVP Nausea & Vomiting 05/16/16 03:00 06/15/16 02:59 Polyethylene Glycol (Miralax) 17 gm HSPRN PRN ORAL Constipation 05/16/16 15:00 06/15/16 14:59 Ranitidine HCl (Zantac) 150 mg DAILY ORAL 05/16/16 09:00 06/15/16 08:59 Sevelamer Carbonate (Renvela) 800 mg TIAC ORAL 05/16/16 06:30 06/15/16 06:29 05/16/16 06:08 Sevelamer Carbonate (Renvela) 2,400 mg TIAC ORAL 05/16/16 06:30 06/15/16 06:29 05/16/16 06:08 Temazepam (Restoril) 15 mg HSPRN PRN ORAL Insomnia 05/16/16 15:00 05/23/16 14:59 Tenofovir Disoproxil Fumarate (Viread) 300 mg DAILY ORAL 05/16/16 09:00 06/15/16 08:59 UNV Item Value Date Time Bedside Blood Glucose 101 mg/dl 05/16/16 0630 Bedside Blood Glucose 126 mg/dl H 05/15/16 2100 Bedside Blood Glucose 74 mg/dl 05/15/16 1136 Bedside Blood Glucose 115 mg/dl 05/15/16 0715 Bedside Blood Glucose 61 mg/dl L 05/15/16 0654 DO CERDA May 16, 2016 07:12
[2016-05-16 08:00] VITALS: BP 154/49
[2016-05-16] MEDS: Lanthanum 1000mg tab ORAL SCH ×3 (08:47→17:15)
[2016-05-16] MEDS: Minoxidil 2.5mg tab ORAL SCH ×2 (08:47→20:19)
--- NOTE | 2016-05-16 08:48 | 48 Hour Post Anesthesia Eval ---
Post Anesthesia Evaluation Procedure: Right foot 2nd toe amputation Date of Evaluation: May 16, 2016 Time of Evaluation: 07:09 Blood Pressure Systolic: 154 0: 49 Pulse Rate: 88 Respiratory Rate: 19 Temperature (Fahrenheit): 97.7 O2 Sat by Pulse Oximetry: 99 Airway: patent Nausea: No Vomiting: No Pain Intensity: 1 Hydration Status: adequate Cardiopulmonary Status: Stable Mental Status/LOC: patient returned to baseline Follow-up Care/Observations: 0 Post-Anesthesia Complications: 0 Follow-up care needed: ready to discharge Fuad Durbin MD May 16, 2016 08:48
[2016-05-16] MEDS ORDERED: Emtricitabine 200mg tab ORAL SCH (10:00)
[2016-05-16 10:17] LABS: BASOPHILS % (AUTO) 1.3 % (0.0-2.0); EOSINOPHILS % (AUTO) 7.9 % (0.0-3.0); LYMPHOCYTES % (AUTO) 36.2 % (20.0-45.0); MEAN CORPUSCULAR HGB CONC 31.3 G/DL (32.0-36.0); MEAN CORPUSCULAR VOLUME 96 FL (80-99); MEAN PLATELET VOLUME 7.1 FL (6.5-10.1); MONOCYTES % (AUTO) 15.1 % (1.0-10.0); NEUTROPHILS % (AUTO) 39.5 % (45.0-75.0); PLATELET COUNT 221 K/UL (150-450); RED CELL DISTRIBUTION WIDTH 15.7 % (11.6-14.8); WHITE BLOOD COUNT 5.2 K/UL (4.8-10.8)
[2016-05-16 10:39] LABS: CALCIUM 8.6 mg/dL (8.6-10.2); CREATININE 10.1 mg/dL (0.7-1.2); GLOMERULAR FILTRATION RATE 6.4 mL/min (>60); POTASSIUM 4.3 mEQ/L (3.4-4.9)
[2016-05-16] MEDS: Emtricitabine 200mg tab ORAL SCH (11:42)
[2016-05-16 12:00] VITALS: BP 191/69
--- NOTE | 2016-05-16 14:33 | General Progress Note ---
Assessment/Plan Problem List: (1) Sepsis ICD Codes: A41.9 - Sepsis, unspecified organism SNOMED: 12368475 (2) Diabetes mellitus out of control ICD Codes: E11.65 - Type 2 diabetes mellitus with hyperglycemia SNOMED: 464468736 Qualifiers: (3) ESRD (end stage renal disease) ICD Codes: N18.6 - End stage renal disease SNOMED: 62392864 (4) Peripheral vascular disease ICD Codes: I73.9 - Peripheral vascular disease, unspecified SNOMED: 405915830 (5) Osteomyelitis ICD Codes: M86.9 - Osteomyelitis, unspecified SNOMED: 72764573 Qualifiers: Qualified Codes: M86.679 - Other chronic osteomyelitis, unspecified ankle and foot Status: stable, progressing, tolerating diet Assessment/Plan wound care ot pt diet abx dialysisi cbc bmp am dc plan w hh Subjective Constitutional: Reports: weakness Allergies: Coded Allergies: HEPARIN (Verified Allergy, Severe, low platelets, 06/11/14) SULFA (SULFONAMIDE ANTIBIOTICS) (Verified Allergy, Severe, nephro toxic, ) ZOLPIDEM (Verified Allergy, Unknown, 05/03/16) MEROPENEM (Verified Adverse Reaction, Intermediate, 04/01/16) Nausea and vomiting Uncoded Allergies: pork products (Allergy, Severe, rashes, 06/11/14) All Systems: reviewed and negative except above Subjective calm in bed Objective Last 24 Hour Vital Signs Date Time Temp Pulse Resp B/P Pulse Ox O2 Delivery O2 Flow Rate FiO2 05/16/16 12:00 98.1 93 20 191/69 99 Room Air 05/16/16 11:42 191/69 05/16/16 10:48 97.7 05/16/16 08:48 88 19 99 05/16/16 08:47 88 154/49 05/16/16 08:47 154/49 05/16/16 08:47 88 154/49 05/16/16 08:00 97.7 88 19 154/49 99 Room Air 05/16/16 07:45 76 18 100 05/16/16 07:32 88 18 Room Air 21 05/16/16 04:00 97.7 90 18 162/81 97 Room Air 05/16/16 00:28 165/57 05/16/16 00:01 98.8 57 19 168/75 96 Room Air 05/15/16 21:35 185/61 05/15/16 19:03 81 18 Room Air 21 05/15/16 17:30 98.6 74 18 185/61 100 Room Air 05/15/16 17:15 70 18 178/60 100 Room Air 05/15/16 17:00 71 18 176/61 100 Room Air 05/15/16 16:45 74 18 147/53 100 Simple Mask 8.0 05/15/16 16:33 75 18 147/52 100 Simple Mask 8.0 05/15/16 16:28 75 18 142/50 100 Simple Mask 8.0 05/15/16 16:23 98.4 76 18 140/58 100 Simple Mask 8.0 Intake and Output 05/15/16 05/16/16 19:00 07:00 Intake Total 400 ml 320 ml Balance 400 ml 320 ml Intake Oral 220 ml IV Total 400 ml 100 ml Laboratory Tests 05/16/16 10:00: White Blood Count 5.2, Red Blood Count 3.20L, Hemoglobin 9.6L, Hematocrit 30.7L , Mean Corpuscular Volume 96, Mean Corpuscular Hemoglobin 30.0, Mean Corpuscular Hemoglobin Concent 31.3L, Red Cell Distribution Width 15.7H, Platelet Count 221, Mean Platelet Volume 7.1, Neutrophils (%) (Auto) 39.5L, Lymphocytes (%) (Auto) 36.2, Monocytes (%) (Auto) 15.1H, Eosinophils (%) (Auto) 7.9H, Basophils (%) (Auto) 1.3, Sodium Level 137, Potassium Level 4.3, Chloride Level 93L, Carbon Dioxide Level 22, Anion Gap 22H, Blood Urea Nitrogen 94#H, Creatinine 10.1H, Estimat Glomerular Filtration Rate 6.4, Glucose Level 112H, Calcium Level 8.6 Height (Feet): 5 Height (Inches): 8.00 Weight (Pounds): 185 General Appearance: lethargic EENT: normal ENT inspection Neck: normal alignment Cardiovascular: normal peripheral pulses, normal rate, regular rhythm Respiratory/Chest: chest wall non-tender, lungs clear, normal breath sounds Abdomen: normal bowel sounds, non tender, soft Extremities: normal inspection Edema: no edema noted Arm (L), no edema noted Arm (R), no edema noted Leg (L), no edema noted Leg (R), no edema noted Pedal (L), no edema noted Pedal (R), no edema noted Generalized Neurologic: responsive, motor weakness Skin: normal pigmentation, warm/dry SNEHA PAIGE May 16, 2016 14:33
--- NOTE | 2016-05-16 14:36 | Nephrology Progress Note ---
Assessment/Plan Assessment 1. End-stage renal disease. 2. Anemia of chronic kidney disease. 3. Renal osteodystrophy. 4. Peripheral vascular disease. 5. Bilateral lower extremity osteomyelitis. Plan plan to do dialysis today continue epogen iv antibiotic clear to be discharge need home iv antibiotic and out patient dialysis set up Subjective Constitutional: Reports: no symptoms HEENT: Reports: no symptoms Genitourinary: Reports: no symptoms Neurologic/Psychiatric: Reports: no symptoms Subjective s/p right 2 toe amputation no complaints Objective Objective Last 24 Hour Vital Signs Date Time Temp Pulse Resp B/P Pulse Ox O2 Delivery O2 Flow Rate FiO2 05/16/16 12:00 98.1 93 20 191/69 99 Room Air 05/16/16 11:42 191/69 05/16/16 10:48 97.7 05/16/16 08:48 88 19 99 05/16/16 08:47 88 154/49 05/16/16 08:47 154/49 05/16/16 08:47 88 154/49 05/16/16 08:00 97.7 88 19 154/49 99 Room Air 05/16/16 07:45 76 18 100 05/16/16 07:32 88 18 Room Air 21 05/16/16 04:00 97.7 90 18 162/81 97 Room Air 05/16/16 00:28 165/57 05/16/16 00:01 98.8 57 19 168/75 96 Room Air 05/15/16 21:35 185/61 05/15/16 19:03 81 18 Room Air 21 05/15/16 17:30 98.6 74 18 185/61 100 Room Air 05/15/16 17:15 70 18 178/60 100 Room Air 05/15/16 17:00 71 18 176/61 100 Room Air 05/15/16 16:45 74 18 147/53 100 Simple Mask 8.0 05/15/16 16:33 75 18 147/52 100 Simple Mask 8.0 05/15/16 16:28 75 18 142/50 100 Simple Mask 8.0 05/15/16 16:23 98.4 76 18 140/58 100 Simple Mask 8.0 Intake and Output 05/15/16 05/16/16 19:00 07:00 Intake Total 400 ml 320 ml Balance 400 ml 320 ml Intake Oral 220 ml IV Total 400 ml 100 ml Laboratory Tests 05/16/16 10:00: White Blood Count 5.2, Red Blood Count 3.20L, Hemoglobin 9.6L, Hematocrit 30.7L , Mean Corpuscular Volume 96, Mean Corpuscular Hemoglobin 30.0, Mean Corpuscular Hemoglobin Concent 31.3L, Red Cell Distribution Width 15.7H, Platelet Count 221, Mean Platelet Volume 7.1, Neutrophils (%) (Auto) 39.5L, Lymphocytes (%) (Auto) 36.2, Monocytes (%) (Auto) 15.1H, Eosinophils (%) (Auto) 7.9H, Basophils (%) (Auto) 1.3, Sodium Level 137, Potassium Level 4.3, Chloride Level 93L, Carbon Dioxide Level 22, Anion Gap 22H, Blood Urea Nitrogen 94#H, Creatinine 10.1H, Estimat Glomerular Filtration Rate 6.4, Glucose Level 112H, Calcium Level 8.6 Height (Feet): 5 Height (Inches): 8.00 Weight (Pounds): 185 Objective HEAD AND NECK: No JVP. No LAD. No thyromegaly. Extraocular movement intact. Pupils are reactive to light and accommodation. LUNGS: Decreased breathing sound on the both sides. CARDIAC: Regular rate and rhythm. S1-S2. No murmur. No rub. ABDOMEN: Soft, nontender, and nondistended. No organomegaly. EXTREMITIES: Trace edema. No clubbing. No cyanosis. NEUROLOGIC: Cranial nerves II to XII within normal limits. Upper and lower extremities are grossly intact. LB SON May 16, 2016 14:36
[2016-05-16] MEDS ORDERED: Miralax 17gm pkt ORAL PRN (15:00)
[2016-05-16 16:00] VITALS: BP 161/49
--- NOTE | 2016-05-16 18:01 | Pulmonology Progress Note ---
Assessment/Plan Problems: (1) Shortness of breath (2) Hyperkalemia (3) Peripheral vascular disease (4) Diabetes mellitus out of control (5) HIV disease (6) Vascular disease (7) ESRD (end stage renal disease) (8) Osteomyelitis Assessment/Plan improivng for surgery today HD respiratory treatment titrate fio2 med/surg after HD sliding scale diabetic diet Subjective ROS Limited/Unobtainable: No Constitutional: Reports: anorexia, chills, fatigue, fever Neurologic: Reports: confusion, numbness, weakness Musculoskeletal: Reports: pain, stiffness, swelling Allergies: Coded Allergies: HEPARIN (Verified Allergy, Severe, low platelets, 06/11/14) SULFA (SULFONAMIDE ANTIBIOTICS) (Verified Allergy, Severe, nephro toxic, ) ZOLPIDEM (Verified Allergy, Unknown, 05/03/16) MEROPENEM (Verified Adverse Reaction, Intermediate, 04/01/16) Nausea and vomiting Uncoded Allergies: pork products (Allergy, Severe, rashes, 06/11/14) Objective Last 24 Hour Vital Signs Date Time Temp Pulse Resp B/P Pulse Ox O2 Delivery O2 Flow Rate FiO2 05/16/16 16:00 97.7 75 20 161/49 100 Room Air 05/16/16 15:03 98.1 05/16/16 14:50 Room Air 05/16/16 12:00 98.1 93 20 191/69 99 Room Air 05/16/16 11:42 191/69 05/16/16 08:48 88 19 99 05/16/16 08:47 88 154/49 05/16/16 08:47 154/49 05/16/16 08:47 88 154/49 05/16/16 08:00 97.7 88 19 154/49 99 Room Air 05/16/16 07:45 76 18 100 05/16/16 07:32 88 18 Room Air 21 05/16/16 04:00 97.7 90 18 162/81 97 Room Air 05/16/16 00:28 165/57 05/16/16 00:01 98.8 57 19 168/75 96 Room Air 05/15/16 21:35 185/61 05/15/16 19:03 81 18 Room Air 21 Intake and Output 05/15/16 05/16/16 19:00 07:00 Intake Total 400 ml 320 ml Balance 400 ml 320 ml Intake Oral 220 ml IV Total 400 ml 100 ml General Appearance: no acute distress HEENT: normocephalic, atraumatic, PERRL Respiratory/Chest: chest wall non-tender, decreased breath sounds, accessory muscle use Cardiovascular: normal peripheral pulses, normal rate, regular rhythm, no JVD Abdomen: normal bowel sounds, soft, non tender, no organomegaly Extremities: no cyanosis Skin: rash, lesions Neurologic/Psychiatric: program clinician II-XII grossly normal, no motor/sensory deficits Musculoskeletal: atrophy Microbiology Date/Time Source Procedure Growth Status 05/14/16 11:12 Nasal Nares MRSA Culture - Final NO METHICILLIN RESISTANT STAPH AUREUS... Complete Laboratory Tests 05/16/16 10:00: White Blood Count 5.2, Red Blood Count 3.20L, Hemoglobin 9.6L, Hematocrit 30.7L , Mean Corpuscular Volume 96, Mean Corpuscular Hemoglobin 30.0, Mean Corpuscular Hemoglobin Concent 31.3L, Red Cell Distribution Width 15.7H, Platelet Count 221, Mean Platelet Volume 7.1, Neutrophils (%) (Auto) 39.5L, Lymphocytes (%) (Auto) 36.2, Monocytes (%) (Auto) 15.1H, Eosinophils (%) (Auto) 7.9H, Basophils (%) (Auto) 1.3, Sodium Level 137, Potassium Level 4.3, Chloride Level 93L, Carbon Dioxide Level 22, Anion Gap 22H, Blood Urea Nitrogen 94#H, Creatinine 10.1H, Estimat Glomerular Filtration Rate 6.4, Glucose Level 112H, Calcium Level 8.6 Current Medications Medications (Trade) Dose Ordered Sig/Zohaib Route PRN Reason Start Time Stop Time Status Last Admin Dose Admin Acetaminophen (Tylenol) 650 mg Q4H PRN ORAL fever 05/16/16 03:00 06/15/16 02:59 Al Hydroxide/Mg Hydroxide (Mylanta II) 30 ml Q6H PRN ORAL dyspepsia 05/16/16 03:00 06/15/16 02:59 Albuterol/ Ipratropium (DuoNeb 0.5-3(2.5)mg/3ml) 3 ml Q4H PRN HHN Shortness of Breath 05/16/16 05:00 05/21/16 04:59 Clonidine HCl (Catapres) 0.1 mg Q8H PRN ORAL SBP>160 05/16/16 02:00 06/15/16 01:59 05/16/16 11:42 Dextrose (Dextrose 50%) STAT PRN IV Hypoglycemia 05/16/16 15:00 06/15/16 14:59 Diphenhydramine HCl (Benadryl) 50 mg EVERY 6 HOURS IVPB 05/16/16 06:00 06/15/16 05:59 05/16/16 11:31 Emtricitabine (Emtriva) 200 mg WeSa@0900 ORAL 05/16/16 12:00 06/15/16 11:59 05/16/16 11:42 Hydromorphone HCl (Dilaudid) 2 mg Q4H PRN IVP mod-sev pain 05/16/16 02:00 05/23/16 01:59 05/16/16 14:33 Insulin Aspart (NovoLOG) BEFORE MEALS AND HS SUBQ 05/16/16 06:30 06/15/16 06:29 Ketorolac Tromethamine (Toradol 30mg) 30 mg Q6H PRN IV Mild Pain (Pain Scale 1-3) 05/16/16 06:00 05/21/16 05:59 Lanthanum Carbonate (Fosrenol) 1,500 mg TID ORAL 05/16/16 09:00 06/15/16 08:59 05/16/16 17:15 Metoprolol Succinate (Toprol XL) 25 mg DAILY ORAL 05/16/16 09:00 06/15/16 08:59 05/16/16 08:47 Minoxidil (Loniten) 2.5 mg Q12HR ORAL 05/16/16 09:00 06/15/16 08:59 05/16/16 08:47 Nifedipine (Procardia XL) 60 mg DAILY ORAL 05/16/16 09:00 06/15/16 08:59 05/16/16 08:47 Nitroglycerin (Ntg) 0.4 mg Q5M X 3 DOSES PRN SL Prn Chest Pain 05/16/16 01:30 06/15/16 01:29 Ondansetron HCl (Zofran) 4 mg Q6H PRN IVP Nausea & Vomiting 05/16/16 03:00 06/15/16 02:59 Polyethylene Glycol (Miralax) 17 gm HSPRN PRN ORAL Constipation 05/16/16 15:00 06/15/16 14:59 Ranitidine HCl (Zantac) 150 mg DAILY ORAL 05/16/16 09:00 06/15/16 08:59 05/16/16 08:47 Sevelamer Carbonate (Renvela) 800 mg TIAC ORAL 05/16/16 06:30 06/15/16 06:29 05/16/16 17:15 Sevelamer Carbonate (Renvela) 2,400 mg TIAC ORAL 05/16/16 06:30 06/15/16 06:29 05/16/16 16:30 Temazepam (Restoril) 15 mg HSPRN PRN ORAL Insomnia 05/16/16 15:00 05/23/16 14:59 Tenofovir Disoproxil Fumarate (Viread) 300 mg Sa@0900 ORAL 05/19/16 09:00 06/18/16 08:59 MIGUEL PICHARDO May 16, 2016 18:01
[2016-05-16 19:54] VITALS: BP 152/50
[2016-05-17] VITALS (7 sets, daily range): BP systolic 112–165; BP diastolic 32–61
[2016-05-17] MEDS: DiphenhydrAMINE 50mg/ml Inj IVPB SCH ×4 (05:37→23:51)
[2016-05-17] MEDS: Renvela 800mg Pkt ORAL SCH ×3 (06:11→15:52)
[2016-05-17] MEDS: Renvela 2400 mg pkt ORAL SCH ×3 (06:11→15:52)
[2016-05-17] MEDS: NovoLOG Insulin Flexpen SUBQ SCH ×4 (06:22→21:00)
[2016-05-17] MEDS: Minoxidil 2.5mg tab ORAL SCH ×2 (08:22→20:36)
[2016-05-17] MEDS: Lanthanum 1000mg tab ORAL SCH ×3 (08:23→17:38)
[2016-05-17 08:29] LABS: BASOPHILS % (AUTO) 1.3 % (0.0-2.0); EOSINOPHILS % (AUTO) 7.4 % (0.0-3.0); LYMPHOCYTES % (AUTO) 38.5 % (20.0-45.0); MEAN CORPUSCULAR HEMOGLOBIN 30.2 PG (27.0-31.0); MEAN CORPUSCULAR HGB CONC 31.3 G/DL (32.0-36.0); MEAN CORPUSCULAR VOLUME 96 FL (80-99); MEAN PLATELET VOLUME 7.7 FL (6.5-10.1); MONOCYTES % (AUTO) 16.7 % (1.0-10.0); PLATELET COUNT 200 K/UL (150-450); RED CELL DISTRIBUTION WIDTH 15.7 % (11.6-14.8); WHITE BLOOD COUNT 4.4 K/UL (4.8-10.8)
[2016-05-17 08:56] LABS: CALCIUM 9.2 mg/dL (8.6-10.2); CREATININE 7.7 mg/dL (0.7-1.2); GLOMERULAR FILTRATION RATE 8.7 mL/min (>60)
--- NOTE | 2016-05-17 09:45 | Nephrology Progress Note ---
Assessment/Plan Assessment 1. End-stage renal disease. 2. Anemia of chronic kidney disease. 3. Renal osteodystrophy. 4. Peripheral vascular disease. 5. Bilateral lower extremity osteomyelitis. Plan plan to do dialysis today continue epogen iv antibiotic clear to be discharge need home iv antibiotic and out patient dialysis set up Subjective Constitutional: Reports: no symptoms HEENT: Reports: no symptoms Genitourinary: Reports: no symptoms Neurologic/Psychiatric: Reports: no symptoms Subjective s/p right 2 toe amputation no complaints Objective Objective Last 24 Hour Vital Signs Date Time Temp Pulse Resp B/P Pulse Ox O2 Delivery O2 Flow Rate FiO2 05/17/16 08:58 97.0 70 21 112/37 94 Nasal Cannula 4.0 05/17/16 08:23 83 130/59 05/17/16 08:22 83 130/59 05/17/16 08:22 130/59 05/17/16 07:50 83 18 Room Air 21 05/17/16 04:00 98.0 62 18 130/59 97 Room Air 05/17/16 00:00 98.2 72 18 155/61 100 Room Air 05/16/16 20:19 152/50 05/16/16 19:54 97.0 83 18 152/50 100 Room Air 05/16/16 19:00 Room Air 05/16/16 19:00 92 16 Room Air 21 05/16/16 16:00 97.7 75 20 161/49 100 Room Air 05/16/16 15:03 98.1 05/16/16 14:50 Room Air 05/16/16 12:00 98.1 93 20 191/69 99 Room Air 05/16/16 11:42 191/69 Intake and Output 05/16/16 05/17/16 19:00 07:00 Intake Total 940 ml 270 ml Output Total 2150 ml Balance -1210 ml 270 ml Intake Oral 840 ml 270 ml IV Total 100 ml Output Hemodialysis UF 2150 ml # Bowel Movements 1 Laboratory Tests 05/16/16 10:00: White Blood Count 5.2, Red Blood Count 3.20L, Hemoglobin 9.6L, Hematocrit 30.7L , Mean Corpuscular Volume 96, Mean Corpuscular Hemoglobin 30.0, Mean Corpuscular Hemoglobin Concent 31.3L, Red Cell Distribution Width 15.7H, Platelet Count 221, Mean Platelet Volume 7.1, Neutrophils (%) (Auto) 39.5L, Lymphocytes (%) (Auto) 36.2, Monocytes (%) (Auto) 15.1H, Eosinophils (%) (Auto) 7.9H, Basophils (%) (Auto) 1.3, Sodium Level 137, Potassium Level 4.3, Chloride Level 93L, Carbon Dioxide Level 22, Anion Gap 22H, Blood Urea Nitrogen 94#H, Creatinine 10.1H, Estimat Glomerular Filtration Rate 6.4, Glucose Level 112H, Calcium Level 8.6 05/17/16 07:35: White Blood Count 4.4L, Red Blood Count 3.10L, Hemoglobin 9.3L, Hematocrit 29.9L , Mean Corpuscular Volume 96, Mean Corpuscular Hemoglobin 30.2, Mean Corpuscular Hemoglobin Concent 31.3L, Red Cell Distribution Width 15.7H, Platelet Count 200, Mean Platelet Volume 7.7, Neutrophils (%) (Auto) 36.0L, Lymphocytes (%) (Auto) 38.5, Monocytes (%) (Auto) 16.7H, Eosinophils (%) (Auto) 7.4H, Basophils (%) (Auto) 1.3, Sodium Level 140, Potassium Level 4.0, Chloride Level 95L, Carbon Dioxide Level 27, Anion Gap 18H, Blood Urea Nitrogen 65#H, Creatinine 7.7H, Estimat Glomerular Filtration Rate 8.7, Glucose Level 126H, Calcium Level 9.2 Height (Feet): 5 Height (Inches): 8.00 Weight (Pounds): 185 Objective HEAD AND NECK: No JVP. No LAD. No thyromegaly. Extraocular movement intact. Pupils are reactive to light and accommodation. LUNGS: Decreased breathing sound on the both sides. CARDIAC: Regular rate and rhythm. S1-S2. No murmur. No rub. ABDOMEN: Soft, nontender, and nondistended. No organomegaly. EXTREMITIES: Trace edema. No clubbing. No cyanosis. NEUROLOGIC: Cranial nerves II to XII within normal limits. Upper and lower extremities are grossly intact. LB SON May 17, 2016 09:45
[2016-05-17] MEDS ORDERED: Norco 10mg/325mg tab ORAL PRN (10:00)
--- NOTE | 2016-05-17 12:14 | Wound Nurse Progress Note ---
Wound RN Progress Note Wound Consult Provided assistance with wound vac dressing change to left foot. wound bed is 100% pink , no s/s of infection, no c/o pain to site while dressing change was being done, noted moderate amount of serosanguineous drainage in canister, no foul odor present to site. site was cleansed pat dry , applied wound vac dressing as ordered, foam cute to fit was placed,new canister placed, dressing is at a complete seal, functioning appropriately , no leaks present. wound vac attached to district engineer. Patient verbalized that he was thankful. DANNA ALEGRE May 17, 2016 12:13
--- NOTE | 2016-05-17 13:58 | Infectious Diseases Prog Note ---
Assessment/Plan Assessment/Plan HPI: 60 yo male known to me, asked to evaluate for length of abx treatment for left foot osteo. Patient s/p right foot second toe amputation for osteo. ASSESSMENT AND PLAN: 1. esbl e.coli/likely polymicrobial left foot wound infection with osteomyelitis and right foot 2nd toe osteo/wound - s/p debridement of left foot , left leg revascularization and amputation right foot 2nd toe - zosyn and vancomycin for another 2 weeks for total of 6-8 weeks abx tx ( would have had at least 6 weeks) for left foot osteo - would consider right foot 2nd amputation as definitive treatment for osteo - watch labs and sed rate - wound culture of left foot and right food 2nd toe at [facility] were negative - patient with line access - ? mid line vs picc line - wound vac left foot - wounds stable - d/w and pt - surgery f/u 2. Wound care per podiatry and surgery 3. End-stage renal disease on hemodialysis, treatment per Renal. 4. Diabetes. 5. Hypertension. 6. Blood sugar and blood pressure control per primary. 7. Human immunodeficiency virus 8. Antiviral therapy. 9. continue HIV anti-retroviral therapy, f/u with primary hiv md 10. Anemia. 11. Peripheral vascular disease. 12. Gastrointestinal disease. 13. Fistula. 14. Neurologic disease, VAD. 15. Transient ischemic attack. 16. Weakness. 17. Seizures. 18. Left ventricular hypertrophy. 19. Atrial septal defect. 20. Coagulopathy, hematological disorder. 21. Past medical history as noted. 22. Allergies to sulfa, pork and heparin, -nc 23. Case was discussed with the patient 24. wound care per protocol 25. Case was discussed with RN. 26. Notes and records were reviewed. 27. MAR was noted. 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 Subjective Constitutional: Reports: fatigue, Denies: fever HEENT: Denies: congestion Respiratory: Denies: shortness of breath Cardiovascular: Denies: chest pain Gastrointestinal/Abdominal: Denies: nausea Genitourinary: Reports: other - no agarwal, hd pt Psychiatric: Denies: depression Skin: Denies: rash Hematologic: Denies: bleeding Musculoskeletal: Denies: pain Allergies: Coded Allergies: HEPARIN (Verified Allergy, Severe, low platelets, 06/11/14) SULFA (SULFONAMIDE ANTIBIOTICS) (Verified Allergy, Severe, nephro toxic, ) ZOLPIDEM (Verified Allergy, Unknown, 05/03/16) MEROPENEM (Verified Adverse Reaction, Intermediate, 04/01/16) Nausea and vomiting Uncoded Allergies: pork products (Allergy, Severe, rashes, 06/11/14) Objective Vital Signs Last 24 Hour Vital Signs Date Time Temp Pulse Resp B/P Pulse Ox O2 Delivery O2 Flow Rate FiO2 05/17/16 12:30 Room Air 05/17/16 09:20 Room Air 05/17/16 08:58 97.0 70 21 112/37 94 Nasal Cannula 4.0 05/17/16 08:23 83 130/59 05/17/16 08:22 83 130/59 05/17/16 08:22 130/59 05/17/16 07:50 83 18 Room Air 21 05/17/16 04:00 98.0 62 18 130/59 97 Room Air 05/17/16 00:00 98.2 72 18 155/61 100 Room Air 05/16/16 20:19 152/50 05/16/16 19:54 97.0 83 18 152/50 100 Room Air 05/16/16 19:00 Room Air 05/16/16 19:00 92 16 Room Air 21 05/16/16 16:00 97.7 75 20 161/49 100 Room Air 05/16/16 15:03 98.1 05/16/16 14:50 Room Air Height (Feet): 5 Height (Inches): 8.00 Weight (Pounds): 185 General Appearance: no acute distress HEENT: normocephalic, atraumatic, anicteric, mucous membranes moist, PERRL, EOMI, pharynx normal, supple, no JVD Respiratory/Chest: lungs clear, normal breath sounds, no respiratory distress, no accessory muscle use Cardiovascular: normal rate, regular rhythm, no gallop/murmur, no JVD Abdomen: normal bowel sounds, soft, non tender, no organomegaly, non distended Genitourinary: other - no agarwal Extremities: other - left foot with wound vac, wound clean. Right foot wound covered. Skin: no rash, other - left foot with wound vac, wound is clean Neurologic/Psychiatric: pet caretaker II-XII grossly normal, alert, oriented x 3, responsive Lymphatic: no neck adenopathy Musculoskeletal: no effusion Objective chest x-ray - negative Microbiology Date/Time Source Procedure Growth Status 05/14/16 11:12 Nasal Nares MRSA Culture - Final NO METHICILLIN RESISTANT STAPH AUREUS... Complete Laboratory Tests Test 05/17/16 07:35 White Blood Count 4.4 K/UL (4.8-10.8) L Red Blood Count 3.10 M/UL (4.70-6.10) L Hemoglobin 9.3 G/DL (14.2-18.0) L Hematocrit 29.9 % (42.0-52.0) L Mean Corpuscular Volume 96 FL (80-99) Mean Corpuscular Hemoglobin 30.2 PG (27.0-31.0) Mean Corpuscular Hemoglobin Concent 31.3 G/DL (32.0-36.0) L Red Cell Distribution Width 15.7 % (11.6-14.8) H Platelet Count 200 K/UL (150-450) Mean Platelet Volume 7.7 FL (6.5-10.1) Neutrophils (%) (Auto) 36.0 % (45.0-75.0) L Lymphocytes (%) (Auto) 38.5 % (20.0-45.0) Monocytes (%) (Auto) 16.7 % (1.0-10.0) H Eosinophils (%) (Auto) 7.4 % (0.0-3.0) H Basophils (%) (Auto) 1.3 % (0.0-2.0) Sodium Level 140 mEQ/L (135-145) Potassium Level 4.0 mEQ/L (3.4-4.9) Chloride Level 95 mEQ/L (98-107) L Carbon Dioxide Level 27 mEQ/L (20-30) Anion Gap 18 (5-15) H Blood Urea Nitrogen 65 mg/dL (7-23) #H Creatinine 7.7 mg/dL (0.7-1.2) H Estimat Glomerular Filtration Rate 8.7 mL/min (>60) Glucose Level 126 mg/dL (74-106) H Calcium Level 9.2 mg/dL (8.6-10.2) Current Medications Medications (Trade) Dose Ordered Sig/Zohaib Route PRN Reason Start Time Stop Time Status Last Admin Dose Admin Acetaminophen (Tylenol) 650 mg Q4H PRN ORAL fever 05/16/16 03:00 06/15/16 02:59 Acetaminophen/ Hydrocodone Bitart ([place] 10/325) 1 ea Q8H PRN ORAL For Pain 05/17/16 10:00 05/24/16 09:59 05/17/16 12:13 Al Hydroxide/Mg Hydroxide (Mylanta II) 30 ml Q6H PRN ORAL dyspepsia 05/16/16 03:00 06/15/16 02:59 Albuterol/ Ipratropium (DuoNeb 0.5-3(2.5)mg/3ml) 3 ml Q4H PRN HHN Shortness of Breath 05/16/16 05:00 05/21/16 04:59 Clonidine HCl (Catapres) 0.1 mg Q8H PRN ORAL SBP>160 05/16/16 02:00 06/15/16 01:59 05/16/16 11:42 Dextrose (Dextrose 50%) STAT PRN IV Hypoglycemia 05/16/16 15:00 06/15/16 14:59 Diphenhydramine HCl (Benadryl) 50 mg EVERY 6 HOURS IVPB 05/16/16 06:00 06/15/16 05:59 05/17/16 05:37 Emtricitabine (Emtriva) 200 mg WeSa@0900 ORAL 05/16/16 12:00 06/15/16 11:59 05/16/16 11:42 Insulin Aspart (NovoLOG) BEFORE MEALS AND HS SUBQ 05/16/16 06:30 06/15/16 06:29 Ketorolac Tromethamine (Toradol 30mg) 30 mg Q6H PRN IV Mild Pain (Pain Scale 1-3) 05/16/16 06:00 05/21/16 05:59 Lanthanum Carbonate (Fosrenol) 1,500 mg TID ORAL 05/16/16 09:00 06/15/16 08:59 05/16/16 17:15 Metoprolol Succinate (Toprol XL) 25 mg DAILY ORAL 05/16/16 09:00 06/15/16 08:59 05/17/16 08:23 Minoxidil (Loniten) 2.5 mg Q12HR ORAL 05/16/16 09:00 06/15/16 08:59 05/17/16 08:22 Nifedipine (Procardia XL) 60 mg DAILY ORAL 05/16/16 09:00 06/15/16 08:59 05/17/16 08:22 Nitroglycerin (Ntg) 0.4 mg Q5M X 3 DOSES PRN SL Prn Chest Pain 05/16/16 01:30 06/15/16 01:29 Ondansetron HCl (Zofran) 4 mg Q6H PRN IVP Nausea & Vomiting 05/16/16 03:00 06/15/16 02:59 Polyethylene Glycol (Miralax) 17 gm HSPRN PRN ORAL Constipation 05/16/16 15:00 06/15/16 14:59 Ranitidine HCl (Zantac) 150 mg DAILY ORAL 05/16/16 09:00 06/15/16 08:59 05/17/16 08:23 Sevelamer Carbonate (Renvela) 800 mg TIAC ORAL 05/16/16 06:30 06/15/16 06:29 05/17/16 12:13 Sevelamer Carbonate (Renvela) 2,400 mg TIAC ORAL 05/16/16 06:30 06/15/16 06:29 05/17/16 12:12 Temazepam (Restoril) 15 mg HSPRN PRN ORAL Insomnia 05/16/16 15:00 05/23/16 14:59 Tenofovir Disoproxil Fumarate (Viread) 300 mg Sa@0900 ORAL 05/19/16 09:00 06/18/16 08:59 INOCENCIA DOS SANTOS May 17, 2016 13:58
--- NOTE | 2016-05-17 14:57 | General Progress Note ---
Assessment/Plan Problem List: (1) Sepsis ICD Codes: A41.9 - Sepsis, unspecified organism SNOMED: 67554297 (2) Diabetes mellitus out of control ICD Codes: E11.65 - Type 2 diabetes mellitus with hyperglycemia SNOMED: 429644411 Qualifiers: (3) ESRD (end stage renal disease) ICD Codes: N18.6 - End stage renal disease SNOMED: 49538278 (4) Peripheral vascular disease ICD Codes: I73.9 - Peripheral vascular disease, unspecified SNOMED: 028862214 (5) Osteomyelitis ICD Codes: M86.9 - Osteomyelitis, unspecified SNOMED: 11547468 Qualifiers: Qualified Codes: M86.679 - Other chronic osteomyelitis, unspecified ankle and foot Status: stable, progressing, tolerating diet Assessment/Plan wound care ot pt diet abx dialysisi cbc bmp am dc plan w hh Subjective Constitutional: Reports: weakness Allergies: Coded Allergies: HEPARIN (Verified Allergy, Severe, low platelets, 06/11/14) SULFA (SULFONAMIDE ANTIBIOTICS) (Verified Allergy, Severe, nephro toxic, ) ZOLPIDEM (Verified Allergy, Unknown, 05/03/16) MEROPENEM (Verified Adverse Reaction, Intermediate, 04/01/16) Nausea and vomiting Uncoded Allergies: pork products (Allergy, Severe, rashes, 06/11/14) All Systems: reviewed and negative except above Subjective calm in bed Objective Last 24 Hour Vital Signs Date Time Temp Pulse Resp B/P Pulse Ox O2 Delivery O2 Flow Rate FiO2 05/17/16 12:36 98.1 74 19 158/32 99 Room Air 05/17/16 12:30 Room Air 05/17/16 09:20 Room Air 05/17/16 08:58 97.0 70 21 112/37 94 Nasal Cannula 4.0 05/17/16 08:23 83 130/59 05/17/16 08:22 83 130/59 05/17/16 08:22 130/59 05/17/16 07:50 83 18 Room Air 21 05/17/16 04:00 98.0 62 18 130/59 97 Room Air 05/17/16 00:00 98.2 72 18 155/61 100 Room Air 05/16/16 20:19 152/50 05/16/16 19:54 97.0 83 18 152/50 100 Room Air 05/16/16 19:00 Room Air 05/16/16 19:00 92 16 Room Air 21 05/16/16 16:00 97.7 75 20 161/49 100 Room Air 05/16/16 15:03 98.1 Intake and Output 05/16/16 05/17/16 19:00 07:00 Intake Total 940 ml 270 ml Output Total 2150 ml Balance -1210 ml 270 ml Intake Oral 840 ml 270 ml IV Total 100 ml Output Hemodialysis UF 2150 ml # Bowel Movements 1 Laboratory Tests 05/17/16 07:35: White Blood Count 4.4L, Red Blood Count 3.10L, Hemoglobin 9.3L, Hematocrit 29.9L , Mean Corpuscular Volume 96, Mean Corpuscular Hemoglobin 30.2, Mean Corpuscular Hemoglobin Concent 31.3L, Red Cell Distribution Width 15.7H, Platelet Count 200, Mean Platelet Volume 7.7, Neutrophils (%) (Auto) 36.0L, Lymphocytes (%) (Auto) 38.5, Monocytes (%) (Auto) 16.7H, Eosinophils (%) (Auto) 7.4H, Basophils (%) (Auto) 1.3, Sodium Level 140, Potassium Level 4.0, Chloride Level 95L, Carbon Dioxide Level 27, Anion Gap 18H, Blood Urea Nitrogen 65#H, Creatinine 7.7H, Estimat Glomerular Filtration Rate 8.7, Glucose Level 126H, Calcium Level 9.2 Height (Feet): 5 Height (Inches): 8.00 Weight (Pounds): 185 General Appearance: alert EENT: normal ENT inspection Neck: normal alignment Cardiovascular: normal peripheral pulses, normal rate, regular rhythm Respiratory/Chest: chest wall non-tender, lungs clear, normal breath sounds Abdomen: normal bowel sounds, non tender, soft Extremities: normal inspection Edema: no edema noted Arm (L), no edema noted Arm (R), no edema noted Leg (L), no edema noted Leg (R), no edema noted Pedal (L), no edema noted Pedal (R), no edema noted Generalized Neurologic: responsive, motor weakness Skin: normal pigmentation, warm/dry SNEHA PAIGE May 17, 2016 14:57
[2016-05-17] MEDS: Piperacillin/Tazobactam 2.25 GM in D5W 55 ML IVPB SCH ×2 (15:52→21:34)
[2016-05-17] MEDS ORDERED: Vancomycin 1.5 GM in D5W 325 ML IVPB ONE (16:00)
--- NOTE | 2016-05-17 18:02 | Pulmonology Progress Note ---
Assessment/Plan Problems: (1) Shortness of breath (2) Hyperkalemia (3) Peripheral vascular disease (4) Diabetes mellitus out of control (5) HIV disease (6) Vascular disease (7) ESRD (end stage renal disease) (8) Osteomyelitis Assessment/Plan improivng HD respiratory treatment titrate fio2 med/surg after HD sliding scale diabetic diet all labs reviewed Subjective ROS Limited/Unobtainable: No Constitutional: Reports: no symptoms HEENT: Repors: no symptoms Allergies: Coded Allergies: HEPARIN (Verified Allergy, Severe, low platelets, 06/11/14) SULFA (SULFONAMIDE ANTIBIOTICS) (Verified Allergy, Severe, nephro toxic, ) ZOLPIDEM (Verified Allergy, Unknown, 05/03/16) MEROPENEM (Verified Adverse Reaction, Intermediate, 04/01/16) Nausea and vomiting Uncoded Allergies: pork products (Allergy, Severe, rashes, 06/11/14) Objective Last 24 Hour Vital Signs Date Time Temp Pulse Resp B/P Pulse Ox O2 Delivery O2 Flow Rate FiO2 05/17/16 13:12 98.1 05/17/16 12:36 98.1 74 19 158/32 99 Room Air 05/17/16 12:30 Room Air 05/17/16 09:20 Room Air 05/17/16 08:58 97.0 70 21 112/37 94 Nasal Cannula 4.0 05/17/16 08:23 83 130/59 05/17/16 08:22 83 130/59 05/17/16 08:22 130/59 05/17/16 07:50 83 18 Room Air 21 05/17/16 04:00 98.0 62 18 130/59 97 Room Air 05/17/16 00:00 98.2 72 18 155/61 100 Room Air 05/16/16 20:19 152/50 05/16/16 19:54 97.0 83 18 152/50 100 Room Air 05/16/16 19:00 Room Air 05/16/16 19:00 92 16 Room Air 21 Intake and Output 05/16/16 05/17/16 19:00 07:00 Intake Total 940 ml 270 ml Output Total 2150 ml Balance -1210 ml 270 ml Intake Oral 840 ml 270 ml IV Total 100 ml Output Hemodialysis UF 2150 ml # Bowel Movements 1 General Appearance: WD/WN HEENT: normocephalic Respiratory/Chest: chest wall non-tender, lungs clear Cardiovascular: normal peripheral pulses, regular rhythm Abdomen: normal bowel sounds, non distended Extremities: no cyanosis 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 Laboratory Tests 05/17/16 07:35: White Blood Count 4.4L, Red Blood Count 3.10L, Hemoglobin 9.3L, Hematocrit 29.9L , Mean Corpuscular Volume 96, Mean Corpuscular Hemoglobin 30.2, Mean Corpuscular Hemoglobin Concent 31.3L, Red Cell Distribution Width 15.7H, Platelet Count 200, Mean Platelet Volume 7.7, Neutrophils (%) (Auto) 36.0L, Lymphocytes (%) (Auto) 38.5, Monocytes (%) (Auto) 16.7H, Eosinophils (%) (Auto) 7.4H, Basophils (%) (Auto) 1.3, Sodium Level 140, Potassium Level 4.0, Chloride Level 95L, Carbon Dioxide Level 27, Anion Gap 18H, Blood Urea Nitrogen 65#H, Creatinine 7.7H, Estimat Glomerular Filtration Rate 8.7, Glucose Level 126H, Calcium Level 9.2, Hepatitis B Surface Antigen [Pending], Hepatitis B Surface Antibody, Quant [Pending], Hepatitis C Antibody [Pending] Current Medications Medications (Trade) Dose Ordered Sig/Zohaib Route PRN Reason Start Time Stop Time Status Last Admin Dose Admin Acetaminophen (Tylenol) 650 mg Q4H PRN ORAL fever 05/16/16 03:00 06/15/16 02:59 Acetaminophen/ Hydrocodone Bitart 1 ea 1 ea Q8H PRN ORAL For Pain 05/17/16 10:00 05/24/16 09:59 05/17/16 12:13 Al Hydroxide/Mg Hydroxide (Mylanta II) 30 ml Q6H PRN ORAL dyspepsia 05/16/16 03:00 06/15/16 02:59 Albuterol/ Ipratropium (DuoNeb 0.5-3(2.5)mg/3ml) 3 ml Q4H PRN HHN Shortness of Breath 05/16/16 05:00 05/21/16 04:59 Clonidine HCl (Catapres) 0.1 mg Q8H PRN ORAL SBP>160 05/16/16 02:00 06/15/16 01:59 05/16/16 11:42 Dextrose (Dextrose 50%) STAT PRN IV Hypoglycemia 05/16/16 15:00 06/15/16 14:59 Diphenhydramine HCl (Benadryl) 50 mg EVERY 6 HOURS IVPB 05/16/16 06:00 06/15/16 05:59 05/17/16 17:38 Emtricitabine (Emtriva) 200 mg WeSa@0900 ORAL 05/16/16 12:00 06/15/16 11:59 05/16/16 11:42 Insulin Aspart (NovoLOG) BEFORE MEALS AND HS SUBQ 05/16/16 06:30 06/15/16 06:29 Ketorolac Tromethamine (Toradol 30mg) 30 mg Q6H PRN IV Mild Pain (Pain Scale 1-3) 05/16/16 06:00 05/21/16 05:59 Lanthanum Carbonate (Fosrenol) 1,500 mg TID ORAL 05/16/16 09:00 06/15/16 08:59 05/17/16 17:38 Metoprolol Succinate (Toprol XL) 25 mg DAILY ORAL 05/16/16 09:00 06/15/16 08:59 05/17/16 08:23 Minoxidil (Loniten) 2.5 mg Q12HR ORAL 05/16/16 09:00 06/15/16 08:59 05/17/16 08:22 Nifedipine (Procardia XL) 60 mg DAILY ORAL 05/16/16 09:00 06/15/16 08:59 05/17/16 08:22 Nitroglycerin (Ntg) 0.4 mg Q5M X 3 DOSES PRN SL Prn Chest Pain 05/16/16 01:30 06/15/16 01:29 Ondansetron HCl (Zofran) 4 mg Q6H PRN IVP Nausea & Vomiting 05/16/16 03:00 06/15/16 02:59 Piperacillin Sod/ Tazobactam Sod/ Dextrose (Zosyn/D5W) 55 ml @ 110 mls/hr Q8HR IVPB 05/17/16 16:00 05/22/16 15:59 05/17/16 15:52 Polyethylene Glycol (Miralax) 17 gm HSPRN PRN ORAL Constipation 05/16/16 15:00 06/15/16 14:59 Ranitidine HCl (Zantac) 150 mg DAILY ORAL 05/16/16 09:00 06/15/16 08:59 05/17/16 08:23 Sevelamer Carbonate (Renvela) 800 mg TIAC ORAL 05/16/16 06:30 06/15/16 06:29 05/17/16 15:52 Sevelamer Carbonate (Renvela) 2,400 mg TIAC ORAL 05/16/16 06:30 06/15/16 06:29 05/17/16 15:52 Temazepam (Restoril) 15 mg HSPRN PRN ORAL Insomnia 05/16/16 15:00 05/23/16 14:59 Tenofovir Disoproxil Fumarate (Viread) 300 mg Sa@0900 ORAL 05/19/16 09:00 06/18/16 08:59 Vancomycin HCl (Vanco rx to dose) 1 ea DAILY PRN MISC Per rx protocol 05/17/16 14:00 06/16/16 13:59 MIGUEL PICHARDO May 17, 2016 18:02
[2016-05-18 00:05] VITALS: BP 139/30
[2016-05-18 04:35] VITALS: BP 123/40
[2016-05-18] MEDS: Piperacillin/Tazobactam 2.25 GM in D5W 55 ML IVPB SCH ×3 (06:15→21:37)
[2016-05-18] MEDS: DiphenhydrAMINE 50mg/ml Inj IVPB SCH ×4 (06:15→23:47)
[2016-05-18] MEDS: Renvela 2400 mg pkt ORAL SCH ×3 (06:16→16:25)
[2016-05-18] MEDS: Renvela 800mg Pkt ORAL SCH ×3 (06:16→16:25)
[2016-05-18] MEDS: NovoLOG Insulin Flexpen SUBQ SCH ×4 (06:17→21:00)
[2016-05-18 07:11] LABS: BASOPHILS % (AUTO) 1.7 % (0.0-2.0); EOSINOPHILS % (AUTO) 8.1 % (0.0-3.0); LYMPHOCYTES % (AUTO) 29.9 % (20.0-45.0); MEAN CORPUSCULAR HGB CONC 30.8 G/DL (32.0-36.0); MEAN CORPUSCULAR VOLUME 98 FL (80-99); MEAN PLATELET VOLUME 7.9 FL (6.5-10.1); MONOCYTES % (AUTO) 14.6 % (1.0-10.0); NEUTROPHILS % (AUTO) 45.7 % (45.0-75.0); PLATELET COUNT 192 K/UL (150-450); RED BLOOD COUNT 2.95 M/UL (4.70-6.10); RED CELL DISTRIBUTION WIDTH 15.9 % (11.6-14.8); WHITE BLOOD COUNT 6.3 K/UL (4.8-10.8)
[2016-05-18 07:21] LABS: ALBUMIN/GLOBULIN RATIO 0.7 (1.0-2.7); CALCIUM 9.4 mg/dL (8.6-10.2); CREATININE 6.8 mg/dL (0.7-1.2); GLOMERULAR FILTRATION RATE 10.1 mL/min (>60); POTASSIUM 4.6 mEQ/L (3.4-4.9); TOTAL PROTEIN 7.5 g/dL (6.6-8.7)
[2016-05-18] MEDS: Minoxidil 2.5mg tab ORAL SCH ×2 (08:42→20:16)
[2016-05-18] MEDS: Lanthanum 1000mg tab ORAL SCH ×3 (08:42→17:18)
[2016-05-18 08:57] VITALS: BP 129/39
--- NOTE | 2016-05-18 11:14 | Nephrology Progress Note ---
Assessment/Plan Assessment 1. End-stage renal disease. 2. Anemia of chronic kidney disease. 3. Renal osteodystrophy. 4. Peripheral vascular disease. 5. Bilateral lower extremity osteomyelitis. Plan plan to do dialysis today continue epogen iv antibiotic clear to be discharge need home iv antibiotic and out patient dialysis set up Subjective Constitutional: Reports: no symptoms HEENT: Reports: no symptoms Genitourinary: Reports: no symptoms Neurologic/Psychiatric: Reports: no symptoms Subjective on hemodialysis no complaints Objective Objective Last 24 Hour Vital Signs Date Time Temp Pulse Resp B/P Pulse Ox O2 Delivery O2 Flow Rate FiO2 05/18/16 09:53 98.2 05/18/16 09:10 Room Air 05/18/16 08:57 98.2 72 20 129/39 98 Room Air 05/18/16 08:42 61 123/40 05/18/16 08:42 123/40 05/18/16 08:42 61 123/40 05/18/16 06:50 73 18 Room Air 05/18/16 04:35 96.1 61 19 123/40 96 Room Air 05/18/16 00:05 99.5 63 19 139/30 100 Room Air 05/17/16 23:17 138/50 05/17/16 20:36 165/50 05/17/16 20:00 98.4 65 20 161/52 99 Room Air 05/17/16 19:00 88 18 Room Air 21 05/17/16 16:00 97.7 73 20 165/50 99 Room Air 05/17/16 13:12 98.1 05/17/16 12:36 98.1 74 19 158/32 99 Room Air 05/17/16 12:30 Room Air Intake and Output 05/17/16 05/18/16 19:00 07:00 Intake Total 795 ml Output Total 1870 ml Balance -1870 ml 795 ml Intake Oral 740 ml IV Total 55 ml Output Hemodialysis UF 1870 ml Laboratory Tests 05/18/16 05:10: Sodium Level 138, Potassium Level 4.6, Chloride Level 95L, Carbon Dioxide Level 25, Anion Gap 18H, Blood Urea Nitrogen 62H, Creatinine 6.8H, Estimat Glomerular Filtration Rate 10.1, Glucose Level 97, Calcium Level 9.4, Total Bilirubin 0.7, Aspartate Amino Transf (AST/SGOT) 42H, Alanine Aminotransferase (ALT/SGPT) 14, Alkaline Phosphatase 135H, Total Protein 7.5, Albumin 3.3L, Globulin 4.2, Albumin/Globulin Ratio 0.7L 05/18/16 05:20: White Blood Count 6.3, Red Blood Count 2.95L, Hemoglobin 8.9L, Hematocrit 28.8L , Mean Corpuscular Volume 98, Mean Corpuscular Hemoglobin 30.0, Mean Corpuscular Hemoglobin Concent 30.8L, Red Cell Distribution Width 15.9H, Platelet Count 192, Mean Platelet Volume 7.9, Neutrophils (%) (Auto) 45.7, Lymphocytes (%) (Auto) 29.9, Monocytes (%) (Auto) 14.6H, Eosinophils (%) (Auto) 8.1H, Basophils (%) (Auto) 1.7, Erythrocyte Sedimentation Rate 116H Height (Feet): 5 Height (Inches): 8.00 Weight (Pounds): 185 Objective HEAD AND NECK: No JVP. No LAD. No thyromegaly. Extraocular movement intact. Pupils are reactive to light and accommodation. LUNGS: Decreased breathing sound on the both sides. CARDIAC: Regular rate and rhythm. S1-S2. No murmur. No rub. ABDOMEN: Soft, nontender, and nondistended. No organomegaly. EXTREMITIES: Trace edema. No clubbing. No cyanosis. NEUROLOGIC: Cranial nerves II to XII within normal limits. Upper and lower extremities are grossly intact. LB SON May 18, 2016 11:14
--- NOTE | 2016-05-18 11:49 | Infectious Diseases Prog Note ---
Assessment/Plan Assessment/Plan ASSESSMENT AND PLAN: 1. esbl e.coli/likely polymicrobial left foot wound infection with osteomyelitis and right foot 2nd toe osteo/wound - s/p debridement of left foot , left leg revascularization and amputation right foot 2nd toe - zosyn and vancomycin for another 13 days for total of 6-8 weeks abx tx ( would have had at least 6 weeks) for left foot osteo - would consider right foot 2nd amputation as definitive treatment for osteo - watch labs and sed rate - wound culture of left foot and right food 2nd toe at [facility] were negative - patient with line access - ? mid line vs picc line - wound vac left foot - wounds stable - elevated sed rate but had recent right foot 2nd toe osteo resection, continue to monitor - surgery f/u 2. Wound care per podiatry and surgery 3. End-stage renal disease on hemodialysis, treatment per Renal. 4. Diabetes. 5. Hypertension. 6. Blood sugar and blood pressure control per primary. 7. Human immunodeficiency virus 8. Antiviral therapy. 9. continue HIV anti-retroviral therapy, f/u with primary hiv md 10. Anemia. 11. Peripheral vascular disease. 12. Gastrointestinal disease. 13. Fistula. 14. Neurologic disease, VAD. 15. Transient ischemic attack. 16. Weakness. 17. Seizures. 18. Left ventricular hypertrophy. 19. Atrial septal defect. 20. Coagulopathy, hematological disorder. 21. Past medical history as noted. 22. Allergies to sulfa, pork and heparin, -nc 23. Case was discussed with the patient 24. wound care per protocol 25. Case was discussed with RN. 26. Notes and records were reviewed. 27. MAR was noted. 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 Subjective Constitutional: Denies: fever HEENT: Denies: congestion Respiratory: Denies: shortness of breath Cardiovascular: Denies: chest pain Gastrointestinal/Abdominal: Denies: diarrhea, nausea, vomiting Genitourinary: Reports: other - no agarwal Neurologic: Denies: headache Psychiatric: Denies: depression Skin: Denies: rash Hematologic: Denies: bleeding Musculoskeletal: Denies: pain Allergies: Coded Allergies: HEPARIN (Verified Allergy, Severe, low platelets, 06/11/14) SULFA (SULFONAMIDE ANTIBIOTICS) (Verified Allergy, Severe, nephro toxic, ) ZOLPIDEM (Verified Allergy, Unknown, 05/03/16) MEROPENEM (Verified Adverse Reaction, Intermediate, 04/01/16) Nausea and vomiting Uncoded Allergies: pork products (Allergy, Severe, rashes, 06/11/14) Objective Vital Signs Last 24 Hour Vital Signs Date Time Temp Pulse Resp B/P Pulse Ox O2 Delivery O2 Flow Rate FiO2 05/18/16 09:53 98.2 05/18/16 09:10 Room Air 05/18/16 08:57 98.2 72 20 129/39 98 Room Air 05/18/16 08:42 61 123/40 05/18/16 08:42 123/40 05/18/16 08:42 61 123/40 05/18/16 06:50 73 18 Room Air 05/18/16 04:35 96.1 61 19 123/40 96 Room Air 05/18/16 00:05 99.5 63 19 139/30 100 Room Air 05/17/16 23:17 138/50 05/17/16 20:36 165/50 05/17/16 20:00 98.4 65 20 161/52 99 Room Air 05/17/16 19:00 88 18 Room Air 21 05/17/16 16:00 97.7 73 20 165/50 99 Room Air 05/17/16 13:12 98.1 05/17/16 12:36 98.1 74 19 158/32 99 Room Air 05/17/16 12:30 Room Air Height (Feet): 5 Height (Inches): 8.00 Weight (Pounds): 185 General Appearance: no acute distress HEENT: normocephalic, atraumatic, anicteric, mucous membranes moist, PERRL, EOMI, pharynx normal, supple, no JVD Respiratory/Chest: lungs clear, normal breath sounds, no respiratory distress, no accessory muscle use Cardiovascular: normal rate, regular rhythm, no gallop/murmur, no JVD Abdomen: normal bowel sounds, soft, non tender, no organomegaly, non distended Genitourinary: other - no agarwal Extremities: other - wounds covered Skin: no rash 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 Complete Laboratory Tests Test 05/18/16 05:10 05/18/16 05:20 Sodium Level 138 mEQ/L (135-145) Potassium Level 4.6 mEQ/L (3.4-4.9) Chloride Level 95 mEQ/L (98-107) L Carbon Dioxide Level 25 mEQ/L (20-30) Anion Gap 18 (5-15) H Blood Urea Nitrogen 62 mg/dL (7-23) H Creatinine 6.8 mg/dL (0.7-1.2) H Estimat Glomerular Filtration Rate 10.1 mL/min (>60) Glucose Level 97 mg/dL (74-106) Calcium Level 9.4 mg/dL (8.6-10.2) Total Bilirubin 0.7 mg/dL (0.0-1.2) Aspartate Amino Transf (AST/SGOT) 42 U/L (5-40) H Alanine Aminotransferase (ALT/SGPT) 14 U/L (3-41) Alkaline Phosphatase 135 U/L (40-129) H Total Protein 7.5 g/dL (6.6-8.7) Albumin 3.3 g/dL (3.5-5.2) L Globulin 4.2 g/dL Albumin/Globulin Ratio 0.7 (1.0-2.7) L White Blood Count 6.3 K/UL (4.8-10.8) Red Blood Count 2.95 M/UL (4.70-6.10) L Hemoglobin 8.9 G/DL (14.2-18.0) L Hematocrit 28.8 % (42.0-52.0) L Mean Corpuscular Volume 98 FL (80-99) Mean Corpuscular Hemoglobin 30.0 PG (27.0-31.0) Mean Corpuscular Hemoglobin Concent 30.8 G/DL (32.0-36.0) L Red Cell Distribution Width 15.9 % (11.6-14.8) H Platelet Count 192 K/UL (150-450) Mean Platelet Volume 7.9 FL (6.5-10.1) Neutrophils (%) (Auto) 45.7 % (45.0-75.0) Lymphocytes (%) (Auto) 29.9 % (20.0-45.0) Monocytes (%) (Auto) 14.6 % (1.0-10.0) H Eosinophils (%) (Auto) 8.1 % (0.0-3.0) H Basophils (%) (Auto) 1.7 % (0.0-2.0) Erythrocyte Sedimentation Rate 116 MM/HR (0-20) H Current Medications Medications (Trade) Dose Ordered Sig/Zohaib Route PRN Reason Start Time Stop Time Status Last Admin Dose Admin Acetaminophen (Tylenol) 650 mg Q4H PRN ORAL fever 05/16/16 03:00 06/15/16 02:59 Acetaminophen/ Hydrocodone Bitart 1 ea 1 ea Q8H PRN ORAL For Pain 05/17/16 10:00 05/24/16 09:59 05/17/16 12:13 Al Hydroxide/Mg Hydroxide (Mylanta II) 30 ml Q6H PRN ORAL dyspepsia 05/16/16 03:00 06/15/16 02:59 Albuterol/ Ipratropium (DuoNeb 0.5-3(2.5)mg/3ml) 3 ml Q4H PRN HHN Shortness of Breath 05/16/16 05:00 05/21/16 04:59 Clonidine HCl (Catapres) 0.1 mg Q8H PRN ORAL SBP>160 05/16/16 02:00 06/15/16 01:59 05/16/16 11:42 Dextrose (Dextrose 50%) STAT PRN IV Hypoglycemia 05/16/16 15:00 06/15/16 14:59 Diphenhydramine HCl (Benadryl) 50 mg EVERY 6 HOURS IVPB 05/16/16 06:00 06/15/16 05:59 05/18/16 06:15 Emtricitabine (Emtriva) 200 mg WeSa@0900 ORAL 05/16/16 12:00 06/15/16 11:59 05/16/16 11:42 Hydromorphone HCl (Dilaudid) 2 mg Q4H PRN IVP SEVERE PAIN UNRELIEVED BY [facility] 05/17/16 20:45 05/24/16 20:44 05/18/16 09:23 Insulin Aspart (NovoLOG) BEFORE MEALS AND HS SUBQ 05/16/16 06:30 06/15/16 06:29 Ketorolac Tromethamine (Toradol 30mg) 30 mg Q6H PRN IV Mild Pain (Pain Scale 1-3) 05/16/16 06:00 05/21/16 05:59 Lanthanum Carbonate (Fosrenol) 1,500 mg TID ORAL 05/16/16 09:00 06/15/16 08:59 05/17/16 17:38 Metoprolol Succinate (Toprol XL) 25 mg DAILY ORAL 05/16/16 09:00 06/15/16 08:59 05/18/16 08:42 Minoxidil (Loniten) 2.5 mg Q12HR ORAL 05/16/16 09:00 06/15/16 08:59 05/18/16 08:42 Nifedipine (Procardia XL) 60 mg DAILY ORAL 05/16/16 09:00 06/15/16 08:59 05/18/16 08:42 Nitroglycerin (Ntg) 0.4 mg Q5M X 3 DOSES PRN SL Prn Chest Pain 05/16/16 01:30 06/15/16 01:29 Ondansetron HCl (Zofran) 4 mg Q6H PRN IVP Nausea & Vomiting 05/16/16 03:00 06/15/16 02:59 Piperacillin Sod/ Tazobactam Sod/ Dextrose (Zosyn/D5W) 55 ml @ 110 mls/hr Q8HR IVPB 05/17/16 16:00 05/22/16 15:59 05/18/16 06:15 Polyethylene Glycol (Miralax) 17 gm HSPRN PRN ORAL Constipation 05/16/16 15:00 06/15/16 14:59 Ranitidine HCl (Zantac) 150 mg DAILY ORAL 05/16/16 09:00 06/15/16 08:59 05/18/16 08:41 Sevelamer Carbonate (Renvela) 800 mg TIAC ORAL 05/16/16 06:30 06/15/16 06:29 05/18/16 11:28 Sevelamer Carbonate (Renvela) 2,400 mg TIAC ORAL 05/16/16 06:30 06/15/16 06:29 05/18/16 11:29 Temazepam (Restoril) 15 mg HSPRN PRN ORAL Insomnia 05/16/16 15:00 05/23/16 14:59 Tenofovir Disoproxil Fumarate (Viread) 300 mg Sa@0900 ORAL 05/19/16 09:00 06/18/16 08:59 Vancomycin HCl (Vanco rx to dose) 1 ea DAILY PRN MISC Per rx protocol 05/17/16 14:00 06/16/16 13:59 INOCENCIA DOS SANTOS May 18, 2016 11:49
[2016-05-18 12:20] VITALS: BP 108/23
--- NOTE | 2016-05-18 12:41 | Pulmonology Progress Note ---
Assessment/Plan Assessment/Plan ASSESSMENT L foot OM s/p amputation R 2 nd toe and L foot metatarsal PVD DOOC SOB HTN HIV status ESRD, on HD elevated LFT PLAN OF CARE MS floor s/p surgery 05/17 podiatry follows, wound care as per podiatry recommendations abx, ID follows, HAART therapy as per ID BS management with SS of insulin, [id number] O2, HHN prn CXR negative on RA sat stable, no further SOB, BP management with CCB and BB, optimize as needed HD as per nephro, monitor renal parameters, lytes, pain management elevated TSH, check free T4 and T3 PT/OT bowel regimen GI prophylaxis monitor LFT, hepatitis panel pending lipid panel with elevated TG, substance abuse counselor on low fat cardiac diet case discussed and evaluated by supervising physician Subjective Allergies: Coded Allergies: HEPARIN (Verified Allergy, Severe, low platelets, 06/11/14) SULFA (SULFONAMIDE ANTIBIOTICS) (Verified Allergy, Severe, nephro toxic, ) ZOLPIDEM (Verified Allergy, Unknown, 05/03/16) MEROPENEM (Verified Adverse Reaction, Intermediate, 04/01/16) Nausea and vomiting Uncoded Allergies: pork products (Allergy, Severe, rashes, 06/11/14) Subjective afebrile, no leucocytosis denies cough, congestion, SOB, chest pain. s/p L foot surgery 03/17 Objective Last 24 Hour Vital Signs Date Time Temp Pulse Resp B/P Pulse Ox O2 Delivery O2 Flow Rate FiO2 05/18/16 12:20 97.3 74 20 108/23 96 Room Air 05/18/16 09:53 98.2 05/18/16 09:10 Room Air 05/18/16 08:57 98.2 72 20 129/39 98 Room Air 05/18/16 08:42 61 123/40 05/18/16 08:42 123/40 05/18/16 08:42 61 123/40 05/18/16 06:50 73 18 Room Air 05/18/16 04:35 96.1 61 19 123/40 96 Room Air 05/18/16 00:05 99.5 63 19 139/30 100 Room Air 05/17/16 23:17 138/50 05/17/16 20:36 165/50 05/17/16 20:00 98.4 65 20 161/52 99 Room Air 05/17/16 19:00 88 18 Room Air 21 05/17/16 16:00 97.7 73 20 165/50 99 Room Air 05/17/16 13:12 98.1 05/17/16 12:36 98.1 74 19 158/32 99 Room Air 05/17/16 12:30 Room Air Intake and Output 05/17/16 05/18/16 18:59 06:59 Intake Total 795 ml Output Total 1870 ml Balance -1870 ml 795 ml Intake Oral 740 ml IV Total 55 ml Output Hemodialysis UF 1870 ml General Appearance: WD/WN, no acute distress HEENT: normocephalic, atraumatic, anicteric, mucous membranes moist Respiratory/Chest: chest wall non-tender, lungs clear, no respiratory distress , no accessory muscle use Cardiovascular: normal rate, regular rhythm, no JVD Abdomen: soft, non tender, no organomegaly Genitourinary: normal external genitalia Extremities: no edema, other - R 2 nd toe amputated, L foot metatarsal amputation , dressings C/D/I Neurologic/Psychiatric: abnormal gait, alert, oriented x 3, responsive Musculoskeletal: normal muscle bulk Laboratory Tests 05/18/16 05:10: Sodium Level 138, Potassium Level 4.6, Chloride Level 95L, Carbon Dioxide Level 25, Anion Gap 18H, Blood Urea Nitrogen 62H, Creatinine 6.8H, Estimat Glomerular Filtration Rate 10.1, Glucose Level 97, Calcium Level 9.4, Total Bilirubin 0.7, Aspartate Amino Transf (AST/SGOT) 42H, Alanine Aminotransferase (ALT/SGPT) 14, Alkaline Phosphatase 135H, Total Protein 7.5, Albumin 3.3L, Globulin 4.2, Albumin/Globulin Ratio 0.7L 05/18/16 05:20: White Blood Count 6.3, Red Blood Count 2.95L, Hemoglobin 8.9L, Hematocrit 28.8L , Mean Corpuscular Volume 98, Mean Corpuscular Hemoglobin 30.0, Mean Corpuscular Hemoglobin Concent 30.8L, Red Cell Distribution Width 15.9H, Platelet Count 192, Mean Platelet Volume 7.9, Neutrophils (%) (Auto) 45.7, Lymphocytes (%) (Auto) 29.9, Monocytes (%) (Auto) 14.6H, Eosinophils (%) (Auto) 8.1H, Basophils (%) (Auto) 1.7, Erythrocyte Sedimentation Rate 116H Current Medications Medications (Trade) Dose Ordered Sig/Zohaib Route PRN Reason Start Time Stop Time Status Last Admin Dose Admin Acetaminophen (Tylenol) 650 mg Q4H PRN ORAL fever 05/16/16 03:00 06/15/16 02:59 Acetaminophen/ Hydrocodone Bitart 1 ea 1 ea Q8H PRN ORAL For Pain 05/17/16 10:00 05/24/16 09:59 05/17/16 12:13 Al Hydroxide/Mg Hydroxide (Mylanta II) 30 ml Q6H PRN ORAL dyspepsia 05/16/16 03:00 06/15/16 02:59 Albuterol/ Ipratropium (DuoNeb 0.5-3(2.5)mg/3ml) 3 ml Q4H PRN HHN Shortness of Breath 05/16/16 05:00 05/21/16 04:59 Clonidine HCl (Catapres) 0.1 mg Q8H PRN ORAL SBP>160 05/16/16 02:00 06/15/16 01:59 05/16/16 11:42 Dextrose (Dextrose 50%) STAT PRN IV Hypoglycemia 05/16/16 15:00 06/15/16 14:59 Diphenhydramine HCl (Benadryl) 50 mg EVERY 6 HOURS IVPB 05/16/16 06:00 06/15/16 05:59 05/18/16 06:15 Emtricitabine (Emtriva) 200 mg WeSa@0900 ORAL 05/16/16 12:00 06/15/16 11:59 05/16/16 11:42 Hydromorphone HCl (Dilaudid) 2 mg Q4H PRN IVP SEVERE PAIN UNRELIEVED BY [facility] 05/17/16 20:45 05/24/16 20:44 05/18/16 09:23 Insulin Aspart (NovoLOG) BEFORE MEALS AND HS SUBQ 05/16/16 06:30 06/15/16 06:29 Ketorolac Tromethamine (Toradol 30mg) 30 mg Q6H PRN IV Mild Pain (Pain Scale 1-3) 05/16/16 06:00 05/21/16 05:59 Lanthanum Carbonate (Fosrenol) 1,500 mg TID ORAL 05/16/16 09:00 06/15/16 08:59 05/17/16 17:38 Metoprolol Succinate (Toprol XL) 25 mg DAILY ORAL 05/16/16 09:00 06/15/16 08:59 05/18/16 08:42 Minoxidil (Loniten) 2.5 mg Q12HR ORAL 05/16/16 09:00 06/15/16 08:59 05/18/16 08:42 Nifedipine (Procardia XL) 60 mg DAILY ORAL 05/16/16 09:00 06/15/16 08:59 05/18/16 08:42 Nitroglycerin (Ntg) 0.4 mg Q5M X 3 DOSES PRN SL Prn Chest Pain 05/16/16 01:30 06/15/16 01:29 Ondansetron HCl (Zofran) 4 mg Q6H PRN IVP Nausea & Vomiting 05/16/16 03:00 06/15/16 02:59 Piperacillin Sod/ Tazobactam Sod/ Dextrose (Zosyn/D5W) 55 ml @ 110 mls/hr Q8HR IVPB 05/17/16 16:00 05/22/16 15:59 05/18/16 06:15 Polyethylene Glycol (Miralax) 17 gm HSPRN PRN ORAL Constipation 05/16/16 15:00 06/15/16 14:59 Ranitidine HCl (Zantac) 150 mg DAILY ORAL 05/16/16 09:00 06/15/16 08:59 05/18/16 08:41 Sevelamer Carbonate (Renvela) 800 mg TIAC ORAL 05/16/16 06:30 06/15/16 06:29 05/18/16 11:28 Sevelamer Carbonate (Renvela) 2,400 mg TIAC ORAL 05/16/16 06:30 06/15/16 06:29 05/18/16 11:29 Temazepam (Restoril) 15 mg HSPRN PRN ORAL Insomnia 05/16/16 15:00 05/23/16 14:59 Tenofovir Disoproxil Fumarate (Viread) 300 mg Sa@0900 ORAL 05/19/16 09:00 06/18/16 08:59 Vancomycin HCl (Vanco rx to dose) 1 ea DAILY PRN MISC Per rx protocol 05/17/16 14:00 06/16/16 13:59 Enzo (Katlucrecia),Sunitha MARIE May 18, 2016 12:41
--- NOTE | 2016-05-18 14:18 | General Progress Note ---
Assessment/Plan Problem List: (1) Sepsis ICD Codes: A41.9 - Sepsis, unspecified organism SNOMED: 64586768 (2) Diabetes mellitus out of control ICD Codes: E11.65 - Type 2 diabetes mellitus with hyperglycemia SNOMED: 769566256 Qualifiers: (3) ESRD (end stage renal disease) ICD Codes: N18.6 - End stage renal disease SNOMED: 21494154 (4) Peripheral vascular disease ICD Codes: I73.9 - Peripheral vascular disease, unspecified SNOMED: 787422733 (5) Osteomyelitis ICD Codes: M86.9 - Osteomyelitis, unspecified SNOMED: 55722405 Qualifiers: Qualified Codes: M86.679 - Other chronic osteomyelitis, unspecified ankle and foot Status: stable, progressing, tolerating diet Assessment/Plan wound care ot pt diet abx dialysisi cbc bmp am dc plan w hh Subjective Constitutional: Reports: weakness Allergies: Coded Allergies: HEPARIN (Verified Allergy, Severe, low platelets, 06/11/14) SULFA (SULFONAMIDE ANTIBIOTICS) (Verified Allergy, Severe, nephro toxic, ) ZOLPIDEM (Verified Allergy, Unknown, 05/03/16) MEROPENEM (Verified Adverse Reaction, Intermediate, 04/01/16) Nausea and vomiting Uncoded Allergies: pork products (Allergy, Severe, rashes, 06/11/14) All Systems: reviewed and negative except above Subjective calm in bed Objective Last 24 Hour Vital Signs Date Time Temp Pulse Resp B/P Pulse Ox O2 Delivery O2 Flow Rate FiO2 05/18/16 12:20 97.3 74 20 108/23 96 Room Air 05/18/16 12:15 Room Air 05/18/16 09:53 98.2 05/18/16 09:10 Room Air 05/18/16 08:57 98.2 72 20 129/39 98 Room Air 05/18/16 08:42 61 123/40 05/18/16 08:42 123/40 05/18/16 08:42 61 123/40 05/18/16 06:50 73 18 Room Air 05/18/16 04:35 96.1 61 19 123/40 96 Room Air 05/18/16 00:05 99.5 63 19 139/30 100 Room Air 05/17/16 23:17 138/50 05/17/16 20:36 165/50 05/17/16 20:00 98.4 65 20 161/52 99 Room Air 05/17/16 19:00 88 18 Room Air 21 05/17/16 16:00 97.7 73 20 165/50 99 Room Air Intake and Output 05/17/16 05/18/16 19:00 07:00 Intake Total 795 ml Output Total 1870 ml Balance -1870 ml 795 ml Intake Oral 740 ml IV Total 55 ml Output Hemodialysis UF 1870 ml Laboratory Tests 05/18/16 05:10: Sodium Level 138, Potassium Level 4.6, Chloride Level 95L, Carbon Dioxide Level 25, Anion Gap 18H, Blood Urea Nitrogen 62H, Creatinine 6.8H, Estimat Glomerular Filtration Rate 10.1, Glucose Level 97, Calcium Level 9.4, Total Bilirubin 0.7, Aspartate Amino Transf (AST/SGOT) 42H, Alanine Aminotransferase (ALT/SGPT) 14, Alkaline Phosphatase 135H, Total Protein 7.5, Albumin 3.3L, Globulin 4.2, Albumin/Globulin Ratio 0.7L 05/18/16 05:20: White Blood Count 6.3, Red Blood Count 2.95L, Hemoglobin 8.9L, Hematocrit 28.8L , Mean Corpuscular Volume 98, Mean Corpuscular Hemoglobin 30.0, Mean Corpuscular Hemoglobin Concent 30.8L, Red Cell Distribution Width 15.9H, Platelet Count 192, Mean Platelet Volume 7.9, Neutrophils (%) (Auto) 45.7, Lymphocytes (%) (Auto) 29.9, Monocytes (%) (Auto) 14.6H, Eosinophils (%) (Auto) 8.1H, Basophils (%) (Auto) 1.7, Erythrocyte Sedimentation Rate 116H Height (Feet): 5 Height (Inches): 8.00 Weight (Pounds): 185 General Appearance: lethargic EENT: normal ENT inspection Neck: normal alignment Cardiovascular: normal peripheral pulses, normal rate, regular rhythm Respiratory/Chest: chest wall non-tender, lungs clear, normal breath sounds Abdomen: normal bowel sounds, non tender, soft Extremities: normal inspection Edema: no edema noted Arm (L), no edema noted Arm (R), no edema noted Leg (L), no edema noted Leg (R), no edema noted Pedal (L), no edema noted Pedal (R), no edema noted Generalized Neurologic: responsive, motor weakness Skin: normal pigmentation, warm/dry SNEHA PAIGE May 18, 2016 14:18
[2016-05-18 16:15] VITALS: BP 109/29
--- NOTE | 2016-05-18 18:42 | Cardiology Progress Note ---
Assessment/Plan Assessment/Plan The patient is seen and examined, full consult note will be dictated. Objective Last 24 Hour Vital Signs Date Time Temp Pulse Resp B/P Pulse Ox O2 Delivery O2 Flow Rate FiO2 05/18/16 16:15 97.7 70 19 109/29 94 Room Air 05/18/16 14:01 97.3 05/18/16 12:20 97.3 74 20 108/23 96 Room Air 05/18/16 12:15 Room Air 05/18/16 09:10 Room Air 05/18/16 08:57 98.2 72 20 129/39 98 Room Air 05/18/16 08:42 61 123/40 05/18/16 08:42 123/40 05/18/16 08:42 61 123/40 05/18/16 06:50 73 18 Room Air 05/18/16 04:35 96.1 61 19 123/40 96 Room Air 05/18/16 00:05 99.5 63 19 139/30 100 Room Air 05/17/16 23:17 138/50 05/17/16 20:36 165/50 05/17/16 20:00 98.4 65 20 161/52 99 Room Air 05/17/16 19:00 88 18 Room Air 21 Intake and Output 05/17/16 05/18/16 19:00 07:00 Intake Total 795 ml Output Total 1870 ml Balance -1870 ml 795 ml Intake Oral 740 ml IV Total 55 ml Output Hemodialysis UF 1870 ml Laboratory Tests Test 05/18/16 05:10 05/18/16 05:20 Sodium Level 138 mEQ/L (135-145) Potassium Level 4.6 mEQ/L (3.4-4.9) Chloride Level 95 mEQ/L (98-107) L Carbon Dioxide Level 25 mEQ/L (20-30) Anion Gap 18 (5-15) H Blood Urea Nitrogen 62 mg/dL (7-23) H Creatinine 6.8 mg/dL (0.7-1.2) H Estimat Glomerular Filtration Rate 10.1 mL/min (>60) Glucose Level 97 mg/dL (74-106) Calcium Level 9.4 mg/dL (8.6-10.2) Total Bilirubin 0.7 mg/dL (0.0-1.2) Aspartate Amino Transf (AST/SGOT) 42 U/L (5-40) H Alanine Aminotransferase (ALT/SGPT) 14 U/L (3-41) Alkaline Phosphatase 135 U/L (40-129) H Total Protein 7.5 g/dL (6.6-8.7) Albumin 3.3 g/dL (3.5-5.2) L Globulin 4.2 g/dL Albumin/Globulin Ratio 0.7 (1.0-2.7) L White Blood Count 6.3 K/UL (4.8-10.8) Red Blood Count 2.95 M/UL (4.70-6.10) L Hemoglobin 8.9 G/DL (14.2-18.0) L Hematocrit 28.8 % (42.0-52.0) L Mean Corpuscular Volume 98 FL (80-99) Mean Corpuscular Hemoglobin 30.0 PG (27.0-31.0) Mean Corpuscular Hemoglobin Concent 30.8 G/DL (32.0-36.0) L Red Cell Distribution Width 15.9 % (11.6-14.8) H Platelet Count 192 K/UL (150-450) Mean Platelet Volume 7.9 FL (6.5-10.1) Neutrophils (%) (Auto) 45.7 % (45.0-75.0) Lymphocytes (%) (Auto) 29.9 % (20.0-45.0) Monocytes (%) (Auto) 14.6 % (1.0-10.0) H Eosinophils (%) (Auto) 8.1 % (0.0-3.0) H Basophils (%) (Auto) 1.7 % (0.0-2.0) Erythrocyte Sedimentation Rate 116 MM/HR (0-20) H CLIFTON ISLAS May 18, 2016 18:42
[2016-05-18 20:00] VITALS: BP 132/30
[2016-05-19] VITALS: BP 113/33
[2016-05-19 04:00] VITALS: BP 113/35
--- NOTE | 2016-05-19 04:27 | Consultation ---
DATE OF CONSULTATION: 05/18/2016 CARDIOLOGY CONSULTATION: REFERRING PHYSICIAN: Louis Barahona D.O. REASON FOR CONSULTATION: Management of severe aortic regurgitation in the patient with history of hypertension. HISTORY OF PRESENT ILLNESS: The patient is a very unfortunate 60-year-old gentleman, who is known to me, who presented to the hospital with nonhealing osteomyelitis and nonhealing foot ulcer. He presented to the hospital because of pain, which was 8/10 constant in both feet. Cardiology consultation was made at request of Dr. Barahona for management of severe aortic regurgitation postoperatively. The patient recently had an amputation of the right second toe due to osteomyelitis. He currently denies any chest pain or shortness of breath. His chronic severe aortic regurgitation has been persistent which was believed to be due to perforated valve due to infective endocarditis. PAST MEDICAL HISTORY: Including, 1. Chronic severe aortic regurgitation possible due to infective endocarditis in the past. 2. Extended spectrum beta-lactamase E. coli left foot wound infection with osteomyelitis and right foot second toe osteomyelitis. 3. End-stage renal disease on hemodialysis. 4. Anemia of chronic kidney disease. 5. Peripheral vascular disease and multiple revascularization in the past status post amputation of both feet. 6. History of HIV disease. 7. History of renal osteodystrophy. 8. History of hypertension. 9. History of leg ulcer and wound VAC. 10. History of a sacral decubitus ulceration stage II. PAST SURGICAL HISTORY: Including AV shunt multiple neurovascular study of lower extremities and status post amputation of both feet. MEDICATIONS: Acetaminophen 650 every 4 hours p.r.n. pain with temperature 101 degrees, acyclovir 800 mg p.o. daily, Polysporin ointment one application daily, Peridex 15 mL once daily, Catapres 0.1 mg q.8 hours p.r.n. systolic blood pressure of 160, Plavix 75 mg p.o. daily, diphenhydramine 50 mg IJ every 6 hours, Colace 100 mg p.o. twice daily, Hectorol 2.5 mg p.o. daily, Emtriva 200 mg p.o. every Saturday and Saturday, Epogen 20,000 units subcutaneous every Saturday, Saturday, and Saturday, vitamin D 41167 units every week, Premarin 0.625 mg p.o. daily, iron sulfate 159 mg p.o. daily, renal caps softgel 1 mg p.o. daily, Dilaudid 1 mg p.o. daily, hydromorphone 1 mg IJ every 4 hours, Atrovent HFA 12.9 g daily, capsule p.o. daily, Fosrenol 1500 mg p.o. t.i.d. , lorazepam 1 mg p.o. q.6 hours p.r.n anxiety, Toprol 25 mg p.o. daily, minoxidil 2.5 mg q.12 hours, Starlix 120 mg p.o. three times daily, Viracept 625 mg p.o. daily, Procardia XL 60 mg p.o. daily, Zofran 4 mg IV q. 6 hours p.r.n. nausea and vomiting, oxycodone, acetaminophen 10-325 one tablet every 4 hours p.r.n. pain, Zosyn 3.25 g IV piggyback every 8 hours,MiraLAX 17 g p.o. daily p.r.n. constipation, Systane 15 mL , Zantac 150 mg p.o. daily, Renvela 3200 mg three times a day, Renagal four tablet overall t.i.d, Viread 300 mg every Saturday, vancomycin 1 g IV piggyback once a week, vitamin A and D ointment to be applied daily, warfarin 10 mg p.o. daily, and zolpidem 5 mg p.o. at nightly p.r.n. insomnia. ALLERGIES: To heparin, sulfa, zolpidem, and meropenem. SOCIAL HISTORY: There is no current history of tobacco, alcohol, or illicit drug use. REVIEW OF SYSTEMS: HEENT: Denies any headache, diplopia, or blurred vision. Constitutional: He has generalized weakness, but no fever, chills, or night sweats at this time. Cardiovascular: Denies any chest pain, shortness of breath, PND, orthopnea, syncope, or palpitation. Pulmonary: Denies any cough, hemoptysis, wheezing . GI: Denies any nausea, vomiting, diarrhea, constipation, or abdominal pain. : Denies any hematuria, dysuria, or incontinence. On hemodialysis. Neurologic: He has facial droop. PHYSICAL EXAMINATION: GENERAL: The patient is a very unfortunate gentleman, in no apparent respiratory distress. VITAL SIGNS: Blood pressure 144/52, respirations 16, pulse of 60, O2 saturation is 95% on room air, temperature 97.6 degrees Fahrenheit. HEENT: Atraumatic and normocephalic. Anicteric. Facial droop. Pale conjunctivae. NECK: JVP less than 5 cm. No carotid bruits. Carotid upstroke is 2+ bilaterally. CVS: Normal S1, S2. There is 3/6 mid systolic murmur left sternal border as well as 2/6 mid LV diastolic murmur and PMI is at fourth intercostal space in the midclavicular line. LUNGS: Diminished breath sounds in both bases. ABDOMEN: Soft, nontender, and nondistended. No hepatosplenomegaly. Positive bowel sounds. EXTREMITIES: Both feet dressed. No lower extremity edema. There is amputated right second toe and left foot transmetatarsal amputation. LABORATORY FINDINGS: WBC 5.8, hemoglobin 11.1, hematocrit 35.3, and platelet count 213,000. Sodium 137, potassium 5.8, chloride 91, bicarbonate 20, BUN 95, creatinine 10.1, and glucose 79. Hemoglobin A1c is 4.1. Calcium is 9.7. Troponin I is less than 0.3. ProBNP was 26,666. A 12-lead electrocardiogram shows sinus rhythm at a rate of 64 with left axis deviation, LVH cannot rule out septal infarct, and age indeterminate. Chest x-ray showed no evidence of acute cardiopulmonary disease. ASSESSMENT AND PLAN: The patient is a very unfortunate 60-year-old gentleman, who was seen in Cardiology consultation at request of Dr. Barahona. 1. Severe chronic aortic regurgitation, and the patient is asymptomatic therefore, there is no intervention is required at this time. We will continue with minoxidil and nifedipine afterload reducers. Currently, the patient is asymptomatic. 2. Hypertension is well controlled with combination of minoxidil, clonidine, nifedipine, and metoprolol. 3. History of peripheral vascular disease status post amputation of right toe. 4. History of diabetes mellitus. 5. History of bacterial endocarditis in the past. I would like to thank, Dr. Barahona, for allowing me to participate in care of this patient. Saturnino Reed M.D. DR: Tasia JOB#: [id number] CC:
[2016-05-19] MEDS: Piperacillin/Tazobactam 2.25 GM in D5W 55 ML IVPB SCH ×2 (05:41→13:54)
[2016-05-19] MEDS: DiphenhydrAMINE 50mg/ml Inj IVPB SCH ×3 (05:42→18:01)
[2016-05-19] MEDS: Renvela 2400 mg pkt ORAL SCH ×3 (05:43→17:49)
[2016-05-19] MEDS: Renvela 800mg Pkt ORAL SCH ×3 (05:43→17:50)
[2016-05-19] MEDS: NovoLOG Insulin Flexpen SUBQ SCH ×3 (06:30→16:30)
[2016-05-19 08:00] VITALS: BP 102/36
[2016-05-19 08:04] LABS: FREE T3 2.4 pg/mL (2.3-4.2)
[2016-05-19 08:07] LABS: ALBUMIN/GLOBULIN RATIO 0.8 (1.0-2.7); CALCIUM 9.7 mg/dL (8.6-10.2); CREATININE 6.7 mg/dL (0.7-1.2); GLOMERULAR FILTRATION RATE 10.3 mL/min (>60); POTASSIUM 4.5 mEQ/L (3.4-4.9); TOTAL PROTEIN 7.8 g/dL (6.6-8.7)
[2016-05-19 08:40] LABS: BASOPHILS % (AUTO) 1.3 % (0.0-2.0); EOSINOPHILS % (AUTO) 8.8 % (0.0-3.0); LYMPHOCYTES % (AUTO) 40.8 % (20.0-45.0); MEAN CORPUSCULAR HEMOGLOBIN 30.3 PG (27.0-31.0); MEAN CORPUSCULAR HGB CONC 30.5 G/DL (32.0-36.0); MEAN CORPUSCULAR VOLUME 99 FL (80-99); MEAN PLATELET VOLUME 7.3 FL (6.5-10.1); MONOCYTES % (AUTO) 14.7 % (1.0-10.0); NEUTROPHILS % (AUTO) 34.4 % (45.0-75.0); PLATELET COUNT 222 K/UL (150-450); RED BLOOD COUNT 2.97 M/UL (4.70-6.10); RED CELL DISTRIBUTION WIDTH 15.1 % (11.6-14.8); WHITE BLOOD COUNT 5.5 K/UL (4.8-10.8)
--- NOTE | 2016-05-19 08:43 | General Progress Note ---
Assessment/Plan Problem List: (1) Sepsis ICD Codes: A41.9 - Sepsis, unspecified organism SNOMED: 74948035 (2) Diabetes mellitus out of control ICD Codes: E11.65 - Type 2 diabetes mellitus with hyperglycemia SNOMED: 539698644 Qualifiers: (3) ESRD (end stage renal disease) ICD Codes: N18.6 - End stage renal disease SNOMED: 23751088 (4) Peripheral vascular disease ICD Codes: I73.9 - Peripheral vascular disease, unspecified SNOMED: 132994493 (5) Osteomyelitis ICD Codes: M86.9 - Osteomyelitis, unspecified SNOMED: 40929077 Qualifiers: Qualified Codes: M86.679 - Other chronic osteomyelitis, unspecified ankle and foot Status: stable, progressing, tolerating diet Assessment/Plan wound care ot pt diet abx dialysisi cbc bmp am dc plan w hh Subjective Constitutional: Reports: weakness Allergies: Coded Allergies: HEPARIN (Verified Allergy, Severe, low platelets, 06/11/14) SULFA (SULFONAMIDE ANTIBIOTICS) (Verified Allergy, Severe, nephro toxic, ) ZOLPIDEM (Verified Allergy, Unknown, 05/03/16) MEROPENEM (Verified Adverse Reaction, Intermediate, 04/01/16) Nausea and vomiting Uncoded Allergies: pork products (Allergy, Severe, rashes, 06/11/14) All Systems: reviewed and negative except above Subjective calm in bed Objective Last 24 Hour Vital Signs Date Time Temp Pulse Resp B/P Pulse Ox O2 Delivery O2 Flow Rate FiO2 05/19/16 08:00 97.9 73 19 102/36 98 Room Air 05/19/16 07:26 76 18 Room Air 05/19/16 06:12 97.9 05/19/16 04:00 97.9 70 20 113/35 95 Room Air 05/19/16 00:00 96.1 72 20 113/33 95 Room Air 05/18/16 20:16 109/29 05/18/16 20:00 97.9 70 20 132/30 98 Room Air 05/18/16 19:00 89 16 Room Air 05/18/16 16:15 97.7 70 19 109/29 94 Room Air 05/18/16 12:20 97.3 74 20 108/23 96 Room Air 05/18/16 12:15 Room Air 05/18/16 09:10 Room Air 05/18/16 08:57 98.2 72 20 129/39 98 Room Air Intake and Output 05/18/16 05/19/16 19:00 07:00 Intake Total 1135 ml 240 ml Output Total 2368 ml Balance -1233 ml 240 ml Intake Oral 1080 ml 240 ml IV Total 55 ml Output Hemodialysis UF 2368 ml Laboratory Tests 05/19/16 04:50: White Blood Count [Pending], Red Blood Count [Pending], Hemoglobin [Pending], Hematocrit [Pending], Mean Corpuscular Volume [Pending], Mean Corpuscular Hemoglobin [Pending], Mean Corpuscular Hemoglobin Concent [Pending], Red Cell Distribution Width [Pending], Platelet Count [Pending], Mean Platelet Volume [ Pending], Neutrophils (%) (Auto) [Pending], Lymphocytes (%) (Auto) [Pending], Monocytes (%) (Auto) [Pending], Eosinophils (%) (Auto) [Pending], Basophils (%) (Auto) [Pending], Sodium Level 139, Potassium Level 4.5, Chloride Level 93L, Carbon Dioxide Level 29, Anion Gap 17H, Blood Urea Nitrogen 54H, Creatinine 6.7H , Estimat Glomerular Filtration Rate 10.3, Glucose Level 109H, Calcium Level 9.7 , Total Bilirubin 0.6, Aspartate Amino Transf (AST/SGOT) 32, Alanine Aminotransferase (ALT/SGPT) 10, Alkaline Phosphatase 137H, Total Protein 7.8, Albumin 3.6, Globulin 4.2, Albumin/Globulin Ratio 0.8L, Free Thyroxine 0.98, Free Triiodothyronine 2.4, Random Vancomycin Level 27.4 Height (Feet): 5 Height (Inches): 8.00 Weight (Pounds): 185 General Appearance: lethargic EENT: normal ENT inspection Neck: normal alignment Cardiovascular: normal peripheral pulses, normal rate, regular rhythm Respiratory/Chest: chest wall non-tender, lungs clear, normal breath sounds Abdomen: normal bowel sounds, non tender, soft Extremities: normal inspection Edema: no edema noted Arm (L), no edema noted Arm (R), no edema noted Leg (L), no edema noted Leg (R), no edema noted Pedal (L), no edema noted Pedal (R), no edema noted Generalized Neurologic: responsive, motor weakness Skin: normal pigmentation, warm/dry SNEHA PAIGE May 19, 2016 08:43
[2016-05-19] MEDS: Lanthanum 1000mg tab ORAL SCH ×3 (08:52→17:50)
[2016-05-19] MEDS: Emtricitabine 200mg tab ORAL SCH (08:53)
[2016-05-19] MEDS: Minoxidil 2.5mg tab ORAL SCH (08:55)
[2016-05-19 12:05] VITALS: BP 107/19
--- NOTE | 2016-05-19 12:36 | Infectious Diseases Prog Note ---
Assessment/Plan Assessment/Plan ASSESSMENT AND PLAN: 1. esbl e.coli/likely polymicrobial left foot wound infection with osteomyelitis and right foot 2nd toe osteo/wound - s/p debridement of left foot , left leg revascularization and amputation right foot 2nd toe - zosyn and vancomycin for another 12 days for total of 6-8 weeks abx tx ( would have had at least 6 weeks) for left foot osteo - would consider right foot 2nd amputation as definitive treatment for osteo - watch labs and sed rate - wound culture of left foot and right food 2nd toe at [facility] were negative - patient with line access - ? mid line vs picc line - wound vac left foot - wounds stable - elevated sed rate but had recent right foot 2nd toe osteo resection, continue to monitor - surgery f/u 2. Wound care per podiatry and surgery 3. End-stage renal disease on hemodialysis, treatment per Renal. 4. Diabetes. 5. Hypertension. 6. Blood sugar and blood pressure control per primary. 7. Human immunodeficiency virus 8. Antiviral therapy. 9. continue HIV anti-retroviral therapy, f/u with primary hiv md 10. Anemia. 11. Peripheral vascular disease. 12. Gastrointestinal disease. 13. Fistula. 14. Neurologic disease, VAD. 15. Transient ischemic attack. 16. Weakness. 17. Seizures. 18. Left ventricular hypertrophy. 19. Atrial septal defect. 20. Coagulopathy, hematological disorder. 21. Past medical history as noted. 22. Allergies to sulfa, pork and heparin, -id 23. Case was discussed with the patient 24. wound care per protocol 25. Case was discussed with RN. 26. Notes and records were reviewed. 27. MAR was noted. 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 Subjective Constitutional: Reports: fatigue, Denies: fever HEENT: Denies: congestion Respiratory: Denies: shortness of breath Cardiovascular: Denies: chest pain Gastrointestinal/Abdominal: Denies: diarrhea, nausea, vomiting Genitourinary: Reports: other Psychiatric: Denies: depression Skin: Denies: rash Hematologic: Denies: bleeding Musculoskeletal: Denies: pain Allergies: Coded Allergies: HEPARIN (Verified Allergy, Severe, low platelets, 06/11/14) SULFA (SULFONAMIDE ANTIBIOTICS) (Verified Allergy, Severe, nephro toxic, ) ZOLPIDEM (Verified Allergy, Unknown, 05/03/16) MEROPENEM (Verified Adverse Reaction, Intermediate, 04/01/16) Nausea and vomiting Uncoded Allergies: pork products (Allergy, Severe, rashes, 06/11/14) Objective Vital Signs Last 24 Hour Vital Signs Date Time Temp Pulse Resp B/P Pulse Ox O2 Delivery O2 Flow Rate FiO2 05/19/16 12:05 97.0 65 20 107/19 99 Room Air 05/19/16 08:00 97.9 73 19 102/36 98 Room Air 05/19/16 07:26 76 18 Room Air 05/19/16 06:12 97.9 05/19/16 04:00 97.9 70 20 113/35 95 Room Air 05/19/16 00:00 96.1 72 20 113/33 95 Room Air 05/18/16 20:16 109/29 05/18/16 20:00 97.9 70 20 132/30 98 Room Air 05/18/16 19:00 89 16 Room Air 05/18/16 16:15 97.7 70 19 109/29 94 Room Air Height (Feet): 5 Height (Inches): 8.00 Weight (Pounds): 185 General Appearance: no acute distress HEENT: normocephalic, atraumatic, anicteric, mucous membranes moist, PERRL, EOMI, pharynx normal, supple, no JVD Respiratory/Chest: lungs clear, normal breath sounds, no respiratory distress, no accessory muscle use Cardiovascular: normal rate, regular rhythm, no gallop/murmur, no JVD Abdomen: normal bowel sounds, soft, non tender, no organomegaly, non distended Genitourinary: other - no agarwal Extremities: other - wound covered Skin: no rash Neurologic/Psychiatric: alert, responsive Lymphatic: no neck adenopathy Musculoskeletal: no effusion Objective chest x-ray - negative Microbiology Date/Time Source Procedure Growth Status 05/14/16 11:12 Nasal Nares MRSA Culture - Final NO METHICILLIN RESISTANT STAPH AUREUS... Complete Labs Test 05/17/16 07:35 05/18/16 05:10 05/18/16 05:20 05/19/16 04:50 White Blood Count 4.4 K/UL (4.8-10.8) 6.3 K/UL (4.8-10.8) 5.5 K/UL (4.8-10.8) Red Blood Count 3.10 M/UL (4.70-6.10) 2.95 M/UL (4.70-6.10) 2.97 M/UL (4.70-6.10) Hemoglobin 9.3 G/DL (14.2-18.0) 8.9 G/DL (14.2-18.0) 9.0 G/DL (14.2-18.0) Hematocrit 29.9 % (42.0-52.0) 28.8 % (42.0-52.0) 29.6 % (42.0-52.0) Mean Corpuscular Volume 96 FL (80-99) 98 FL (80-99) 99 FL (80-99) Mean Corpuscular Hemoglobin 30.2 PG (27.0-31.0) 30.0 PG (27.0-31.0) 30.3 PG (27.0-31.0) Mean Corpuscular Hemoglobin Concent 31.3 G/DL (32.0-36.0) 30.8 G/DL (32.0-36.0) 30.5 G/DL (32.0-36.0) Red Cell Distribution Width 15.7 % (11.6-14.8) 15.9 % (11.6-14.8) 15.1 % (11.6-14.8) Platelet Count 200 K/UL (150-450) 192 K/UL (150-450) 222 K/UL (150-450) Mean Platelet Volume 7.7 FL (6.5-10.1) 7.9 FL (6.5-10.1) 7.3 FL (6.5-10.1) Neutrophils (%) (Auto) 36.0 % (45.0-75.0) 45.7 % (45.0-75.0) 34.4 % (45.0-75.0) Lymphocytes (%) (Auto) 38.5 % (20.0-45.0) 29.9 % (20.0-45.0) 40.8 % (20.0-45.0) Monocytes (%) (Auto) 16.7 % (1.0-10.0) 14.6 % (1.0-10.0) 14.7 % (1.0-10.0) Eosinophils (%) (Auto) 7.4 % (0.0-3.0) 8.1 % (0.0-3.0) 8.8 % (0.0-3.0) Basophils (%) (Auto) 1.3 % (0.0-2.0) 1.7 % (0.0-2.0) 1.3 % (0.0-2.0) Sodium Level 140 mEQ/L (135-145) 138 mEQ/L (135-145) 139 mEQ/L (135-145) Potassium Level 4.0 mEQ/L (3.4-4.9) 4.6 mEQ/L (3.4-4.9) 4.5 mEQ/L (3.4-4.9) Chloride Level 95 mEQ/L (98-107) 95 mEQ/L (98-107) 93 mEQ/L (98-107) Carbon Dioxide Level 27 mEQ/L (20-30) 25 mEQ/L (20-30) 29 mEQ/L (20-30) Anion Gap 18 (5-15) 18 (5-15) 17 (5-15) Blood Urea Nitrogen 65 mg/dL (7-23) 62 mg/dL (7-23) 54 mg/dL (7-23) Creatinine 7.7 mg/dL (0.7-1.2) 6.8 mg/dL (0.7-1.2) 6.7 mg/dL (0.7-1.2) Estimat Glomerular Filtration Rate 8.7 mL/min (>60) 10.1 mL/min (>60) 10.3 mL/min (>60) Glucose Level 126 mg/dL (74-106) 97 mg/dL (74-106) 109 mg/dL (74-106) Calcium Level 9.2 mg/dL (8.6-10.2) 9.4 mg/dL (8.6-10.2) 9.7 mg/dL (8.6-10.2) Total Bilirubin 0.7 mg/dL (0.0-1.2) 0.6 mg/dL (0.0-1.2) Aspartate Amino Transf (AST/SGOT) 42 U/L (5-40) 32 U/L (5-40) Alanine Aminotransferase (ALT/SGPT) 14 U/L (3-41) 10 U/L (3-41) Alkaline Phosphatase 135 U/L (40-129) 137 U/L (40-129) Total Protein 7.5 g/dL (6.6-8.7) 7.8 g/dL (6.6-8.7) Albumin 3.3 g/dL (3.5-5.2) 3.6 g/dL (3.5-5.2) Globulin 4.2 g/dL 4.2 g/dL Albumin/Globulin Ratio 0.7 (1.0-2.7) 0.8 (1.0-2.7) Erythrocyte Sedimentation Rate 116 MM/HR (0-20) Free Thyroxine 0.98 ng/dL (0.86-1.85) Free Triiodothyronine 2.4 pg/mL (2.3-4.2) Random Vancomycin Level 27.4 ug/mL Laboratory Tests Test 05/19/16 04:50 White Blood Count 5.5 K/UL (4.8-10.8) Red Blood Count 2.97 M/UL (4.70-6.10) L Hemoglobin 9.0 G/DL (14.2-18.0) L Hematocrit 29.6 % (42.0-52.0) L Mean Corpuscular Volume 99 FL (80-99) Mean Corpuscular Hemoglobin 30.3 PG (27.0-31.0) Mean Corpuscular Hemoglobin Concent 30.5 G/DL (32.0-36.0) L Red Cell Distribution Width 15.1 % (11.6-14.8) H Platelet Count 222 K/UL (150-450) Mean Platelet Volume 7.3 FL (6.5-10.1) Neutrophils (%) (Auto) 34.4 % (45.0-75.0) L Lymphocytes (%) (Auto) 40.8 % (20.0-45.0) Monocytes (%) (Auto) 14.7 % (1.0-10.0) H Eosinophils (%) (Auto) 8.8 % (0.0-3.0) H Basophils (%) (Auto) 1.3 % (0.0-2.0) Sodium Level 139 mEQ/L (135-145) Potassium Level 4.5 mEQ/L (3.4-4.9) Chloride Level 93 mEQ/L (98-107) L Carbon Dioxide Level 29 mEQ/L (20-30) Anion Gap 17 (5-15) H Blood Urea Nitrogen 54 mg/dL (7-23) H Creatinine 6.7 mg/dL (0.7-1.2) H Estimat Glomerular Filtration Rate 10.3 mL/min (>60) Glucose Level 109 mg/dL (74-106) H Calcium Level 9.7 mg/dL (8.6-10.2) Total Bilirubin 0.6 mg/dL (0.0-1.2) Aspartate Amino Transf (AST/SGOT) 32 U/L (5-40) Alanine Aminotransferase (ALT/SGPT) 10 U/L (3-41) Alkaline Phosphatase 137 U/L (40-129) H Total Protein 7.8 g/dL (6.6-8.7) Albumin 3.6 g/dL (3.5-5.2) Globulin 4.2 g/dL Albumin/Globulin Ratio 0.8 (1.0-2.7) L Free Thyroxine 0.98 ng/dL (0.86-1.85) Free Triiodothyronine 2.4 pg/mL (2.3-4.2) Random Vancomycin Level 27.4 ug/mL Current Medications Medications (Trade) Dose Ordered Sig/Zohaib Route PRN Reason Start Time Stop Time Status Last Admin Dose Admin Acetaminophen (Tylenol) 650 mg Q4H PRN ORAL fever 05/16/16 03:00 06/15/16 02:59 Acetaminophen/ Hydrocodone Bitart 1 ea 1 ea Q8H PRN ORAL For Pain 05/17/16 10:00 05/24/16 09:59 05/17/16 12:13 Al Hydroxide/Mg Hydroxide (Mylanta II) 30 ml Q6H PRN ORAL dyspepsia 05/16/16 03:00 06/15/16 02:59 Albuterol/ Ipratropium (DuoNeb 0.5-3(2.5)mg/3ml) 3 ml Q4H PRN HHN Shortness of Breath 05/16/16 05:00 05/21/16 04:59 Clonidine HCl (Catapres) 0.1 mg Q8H PRN ORAL SBP>160 05/16/16 02:00 06/15/16 01:59 05/16/16 11:42 Dextrose (Dextrose 50%) STAT PRN IV Hypoglycemia 05/16/16 15:00 06/15/16 14:59 Diphenhydramine HCl (Benadryl) 50 mg EVERY 6 HOURS IVPB 05/16/16 06:00 06/15/16 05:59 05/19/16 11:59 Emtricitabine (Emtriva) 200 mg WeSa@0900 ORAL 05/16/16 12:00 06/15/16 11:59 05/19/16 08:53 Hydromorphone HCl (Dilaudid) 2 mg Q4H PRN IVP SEVERE PAIN UNRELIEVED BY [facility] 05/17/16 20:45 05/24/16 20:44 05/19/16 09:48 Insulin Aspart (NovoLOG) BEFORE MEALS AND HS SUBQ 05/16/16 06:30 06/15/16 06:29 Ketorolac Tromethamine (Toradol 30mg) 30 mg Q6H PRN IV Mild Pain (Pain Scale 1-3) 05/16/16 06:00 05/21/16 05:59 Lanthanum Carbonate (Fosrenol) 1,500 mg TID ORAL 05/16/16 09:00 06/15/16 08:59 05/19/16 08:52 Metoprolol Succinate (Toprol XL) 25 mg DAILY ORAL 05/16/16 09:00 06/15/16 08:59 05/18/16 08:42 Minoxidil (Loniten) 2.5 mg Q12HR ORAL 05/16/16 09:00 06/15/16 08:59 05/18/16 08:42 Nifedipine (Procardia XL) 60 mg DAILY ORAL 05/16/16 09:00 06/15/16 08:59 05/18/16 08:42 Nitroglycerin (Ntg) 0.4 mg Q5M X 3 DOSES PRN SL Prn Chest Pain 05/16/16 01:30 06/15/16 01:29 Ondansetron HCl (Zofran) 4 mg Q6H PRN IVP Nausea & Vomiting 05/16/16 03:00 06/15/16 02:59 Piperacillin Sod/ Tazobactam Sod/ Dextrose (Zosyn/D5W) 55 ml @ 110 mls/hr Q8HR IVPB 05/17/16 16:00 05/22/16 15:59 05/19/16 05:41 Polyethylene Glycol (Miralax) 17 gm HSPRN PRN ORAL Constipation 05/16/16 15:00 06/15/16 14:59 Ranitidine HCl (Zantac) 150 mg DAILY ORAL 05/16/16 09:00 06/15/16 08:59 05/19/16 08:53 Sevelamer Carbonate (Renvela) 800 mg TIAC ORAL 05/16/16 06:30 06/15/16 06:29 05/19/16 11:53 Sevelamer Carbonate (Renvela) 2,400 mg TIAC ORAL 05/16/16 06:30 06/15/16 06:29 05/19/16 11:53 Temazepam (Restoril) 15 mg HSPRN PRN ORAL Insomnia 05/16/16 15:00 05/23/16 14:59 Tenofovir Disoproxil Fumarate (Viread) 300 mg Sa@0900 ORAL 05/19/16 09:00 06/18/16 08:59 05/19/16 11:53 Vancomycin HCl (Vanco rx to dose) 1 ea DAILY PRN MISC Per rx protocol 05/17/16 14:00 06/16/16 13:59 INOCENCIA DOS SANTOS May 19, 2016 12:36
[2016-05-19] MEDS ORDERED: D5 1/2NS 1000ml IV ONE (15:59)
[2016-05-19 16:00] VITALS: BP 119/33
--- NOTE | 2016-05-19 17:07 | Pulmonology Progress Note ---
Assessment/Plan Assessment/Plan ASSESSMENT L foot OM s/p amputation R 2 nd toe and L foot metatarsal PVD DOOC SOB HTN HIV status ESRD, on HD elevated LFT PLAN OF CARE MS floor s/p surgery 05/17 podiatry follows, wound care as per podiatry recommendations abx, ID follows, HAART therapy as per ID BS management with SS of insulin, [id number] O2, HHN prn CXR negative on RA sat stable, no further SOB, BP management with CCB and BB, optimize as needed HD as per nephro, monitor renal parameters, lytes, pain management elevated TSH, free T4 and T3 -WNL, subclinical hypothyroidism, recheck thyroid panel in 1-2 months PT/OT bowel regimen GI prophylaxis monitor LFT, hepatitis panel pending lipid panel with elevated TG, probation counselor on low fat cardiac diet case discussed and evaluated by supervising physician Subjective Allergies: Coded Allergies: HEPARIN (Verified Allergy, Severe, low platelets, 06/11/14) SULFA (SULFONAMIDE ANTIBIOTICS) (Verified Allergy, Severe, nephro toxic, ) ZOLPIDEM (Verified Allergy, Unknown, 05/03/16) MEROPENEM (Verified Adverse Reaction, Intermediate, 04/01/16) Nausea and vomiting Uncoded Allergies: pork products (Allergy, Severe, rashes, 06/11/14) Subjective afebrile, no leucocytosis denies cough, congestion, SOB, chest pain. s/p L foot surgery 03/17 HD today Objective Last 24 Hour Vital Signs Date Time Temp Pulse Resp B/P Pulse Ox O2 Delivery O2 Flow Rate FiO2 05/19/16 16:00 97.9 70 18 119/33 99 Room Air 05/19/16 12:15 Room Air 05/19/16 12:05 97.0 65 20 107/19 99 Room Air 05/19/16 09:10 Room Air 05/19/16 08:00 97.9 73 19 102/36 98 Room Air 05/19/16 07:26 76 18 Room Air 05/19/16 06:12 97.9 05/19/16 04:00 97.9 70 20 113/35 95 Room Air 05/19/16 00:00 96.1 72 20 113/33 95 Room Air 05/18/16 20:16 109/29 05/18/16 20:00 97.9 70 20 132/30 98 Room Air 05/18/16 19:00 89 16 Room Air Intake and Output 05/18/16 05/19/16 19:00 07:00 Intake Total 1135 ml 240 ml Output Total 2368 ml Balance -1233 ml 240 ml Intake Oral 1080 ml 240 ml IV Total 55 ml Output Hemodialysis UF 2368 ml Objective General Appearance: WD/WN, no acute distress HEENT: normocephalic, atraumatic, anicteric, mucous membranes moist Respiratory/Chest: chest wall non-tender, lungs clear, no respiratory distress , no accessory muscle use Cardiovascular: normal rate, regular rhythm, no JVD Abdomen: soft, non tender, no organomegaly Genitourinary: normal external genitalia Extremities: no edema, other - R 2 nd toe amputated, L foot metatarsal amputation , dressings C/D/I Neurologic/Psychiatric: abnormal gait, alert, oriented x 3, responsive Musculoskeletal: normal muscle bulk Laboratory Tests 05/19/16 04:50: White Blood Count 5.5, Red Blood Count 2.97L, Hemoglobin 9.0L, Hematocrit 29.6L , Mean Corpuscular Volume 99, Mean Corpuscular Hemoglobin 30.3, Mean Corpuscular Hemoglobin Concent 30.5L, Red Cell Distribution Width 15.1H, Platelet Count 222, Mean Platelet Volume 7.3, Neutrophils (%) (Auto) 34.4L, Lymphocytes (%) (Auto) 40.8, Monocytes (%) (Auto) 14.7H, Eosinophils (%) (Auto) 8.8H, Basophils (%) (Auto) 1.3, Sodium Level 139, Potassium Level 4.5, Chloride Level 93L, Carbon Dioxide Level 29, Anion Gap 17H, Blood Urea Nitrogen 54H, Creatinine 6.7H, Estimat Glomerular Filtration Rate 10.3, Glucose Level 109H, Calcium Level 9.7, Total Bilirubin 0.6, Aspartate Amino Transf (AST/SGOT) 32, Alanine Aminotransferase (ALT/SGPT) 10, Alkaline Phosphatase 137H, Total Protein 7.8, Albumin 3.6, Globulin 4.2, Albumin/Globulin Ratio 0.8L, Free Thyroxine 0.98, Free Triiodothyronine 2.4, Random Vancomycin Level 27.4 Current Medications Medications (Trade) Dose Ordered Sig/Zohaib Route PRN Reason Start Time Stop Time Status Last Admin Dose Admin Acetaminophen (Tylenol) 650 mg Q4H PRN ORAL fever 05/16/16 03:00 06/15/16 02:59 Acetaminophen/ Hydrocodone Bitart 1 ea 1 ea Q8H PRN ORAL For Pain 05/17/16 10:00 05/24/16 09:59 05/17/16 12:13 Al Hydroxide/Mg Hydroxide (Mylanta II) 30 ml Q6H PRN ORAL dyspepsia 05/16/16 03:00 06/15/16 02:59 Albuterol/ Ipratropium (DuoNeb 0.5-3(2.5)mg/3ml) 3 ml Q4H PRN HHN Shortness of Breath 05/16/16 05:00 05/21/16 04:59 Clonidine HCl (Catapres) 0.1 mg Q8H PRN ORAL SBP>160 05/16/16 02:00 06/15/16 01:59 05/16/16 11:42 Dextrose (Dextrose 50%) STAT PRN IV Hypoglycemia 05/16/16 15:00 06/15/16 14:59 Diphenhydramine HCl (Benadryl) 50 mg EVERY 6 HOURS IVPB 05/16/16 06:00 06/15/16 05:59 05/19/16 11:59 Emtricitabine (Emtriva) 200 mg WeSa@0900 ORAL 05/16/16 12:00 06/15/16 11:59 05/19/16 08:53 Hydromorphone HCl (Dilaudid) 2 mg Q4H PRN IVP SEVERE PAIN UNRELIEVED BY [facility] 05/17/16 20:45 05/24/16 20:44 05/19/16 13:54 Insulin Aspart (NovoLOG) BEFORE MEALS AND HS SUBQ 05/16/16 06:30 06/15/16 06:29 Ketorolac Tromethamine (Toradol 30mg) 30 mg Q6H PRN IV Mild Pain (Pain Scale 1-3) 05/16/16 06:00 05/21/16 05:59 Lanthanum Carbonate (Fosrenol) 1,500 mg TID ORAL 05/16/16 09:00 06/15/16 08:59 05/19/16 12:38 Metoprolol Succinate (Toprol XL) 25 mg DAILY ORAL 05/16/16 09:00 06/15/16 08:59 05/18/16 08:42 Minoxidil (Loniten) 2.5 mg Q12HR ORAL 05/16/16 09:00 06/15/16 08:59 05/18/16 08:42 Nifedipine (Procardia XL) 60 mg DAILY ORAL 05/16/16 09:00 06/15/16 08:59 05/18/16 08:42 Nitroglycerin (Ntg) 0.4 mg Q5M X 3 DOSES PRN SL Prn Chest Pain 05/16/16 01:30 06/15/16 01:29 Ondansetron HCl (Zofran) 4 mg Q6H PRN IVP Nausea & Vomiting 05/16/16 03:00 06/15/16 02:59 Piperacillin Sod/ Tazobactam Sod/ Dextrose (Zosyn/D5W) 55 ml @ 110 mls/hr Q8HR IVPB 05/17/16 16:00 05/22/16 15:59 05/19/16 13:54 Polyethylene Glycol (Miralax) 17 gm HSPRN PRN ORAL Constipation 05/16/16 15:00 06/15/16 14:59 Ranitidine HCl (Zantac) 150 mg DAILY ORAL 05/16/16 09:00 06/15/16 08:59 05/19/16 08:53 Sevelamer Carbonate (Renvela) 800 mg TIAC ORAL 05/16/16 06:30 06/15/16 06:29 05/19/16 11:53 Sevelamer Carbonate (Renvela) 2,400 mg TIAC ORAL 05/16/16 06:30 06/15/16 06:29 05/19/16 11:53 Temazepam (Restoril) 15 mg HSPRN PRN ORAL Insomnia 05/16/16 15:00 05/23/16 14:59 Tenofovir Disoproxil Fumarate (Viread) 300 mg Sa@0900 ORAL 05/19/16 09:00 06/18/16 08:59 05/19/16 11:53 Vancomycin HCl (Vanco rx to dose) 1 ea DAILY PRN MISC Per rx protocol 05/17/16 14:00 06/16/16 13:59 Sunitha Giraldo NP (Vanchtein) May 19, 2016 17:07
--- NOTE | 2016-05-19 20:26 | Nephrology Progress Note ---
Assessment/Plan Assessment 1. End-stage renal disease. 2. Anemia of chronic kidney disease. 3. Renal osteodystrophy. 4. Peripheral vascular disease. 5. Bilateral lower extremity osteomyelitis. Plan plan to do dialysis today continue epogen iv antibiotic clear to be discharge need home iv antibiotic and out patient dialysis set up Subjective Constitutional: Reports: no symptoms HEENT: Reports: no symptoms Genitourinary: Reports: no symptoms Neurologic/Psychiatric: Reports: no symptoms Subjective the patient seen this am on hemodialysis no complaints Objective Objective Last 24 Hour Vital Signs Date Time Temp Pulse Resp B/P Pulse Ox O2 Delivery O2 Flow Rate FiO2 05/19/16 16:00 97.9 70 18 119/33 99 Room Air 05/19/16 12:15 Room Air 05/19/16 12:05 97.0 65 20 107/19 99 Room Air 05/19/16 09:10 Room Air 05/19/16 08:00 97.9 73 19 102/36 98 Room Air 05/19/16 07:26 76 18 Room Air 05/19/16 06:12 97.9 05/19/16 04:00 97.9 70 20 113/35 95 Room Air 05/19/16 00:00 96.1 72 20 113/33 95 Room Air Intake and Output 05/18/16 05/19/16 19:00 07:00 Intake Total 1135 ml 240 ml Output Total 2368 ml Balance -1233 ml 240 ml Intake Oral 1080 ml 240 ml IV Total 55 ml Output Hemodialysis UF 2368 ml Laboratory Tests 05/19/16 04:50: White Blood Count 5.5, Red Blood Count 2.97L, Hemoglobin 9.0L, Hematocrit 29.6L , Mean Corpuscular Volume 99, Mean Corpuscular Hemoglobin 30.3, Mean Corpuscular Hemoglobin Concent 30.5L, Red Cell Distribution Width 15.1H, Platelet Count 222, Mean Platelet Volume 7.3, Neutrophils (%) (Auto) 34.4L, Lymphocytes (%) (Auto) 40.8, Monocytes (%) (Auto) 14.7H, Eosinophils (%) (Auto) 8.8H, Basophils (%) (Auto) 1.3, Sodium Level 139, Potassium Level 4.5, Chloride Level 93L, Carbon Dioxide Level 29, Anion Gap 17H, Blood Urea Nitrogen 54H, Creatinine 6.7H, Estimat Glomerular Filtration Rate 10.3, Glucose Level 109H, Calcium Level 9.7, Total Bilirubin 0.6, Aspartate Amino Transf (AST/SGOT) 32, Alanine Aminotransferase (ALT/SGPT) 10, Alkaline Phosphatase 137H, Total Protein 7.8, Albumin 3.6, Globulin 4.2, Albumin/Globulin Ratio 0.8L, Free Thyroxine 0.98, Free Triiodothyronine 2.4, Random Vancomycin Level 27.4 Height (Feet): 5 Height (Inches): 8.00 Weight (Pounds): 185 Objective HEAD AND NECK: No JVP. No LAD. No thyromegaly. Extraocular movement intact. Pupils are reactive to light and accommodation. LUNGS: Decreased breathing sound on the both sides. CARDIAC: Regular rate and rhythm. S1-S2. No murmur. No rub. ABDOMEN: Soft, nontender, and nondistended. No organomegaly. EXTREMITIES: Trace edema. No clubbing. No cyanosis. NEUROLOGIC: Cranial nerves II to XII within normal limits. Upper and lower extremities are grossly intact. LB SON May 19, 2016 20:26
[2016-05-21 09:36] LABS: HEPATITIS BE ANTIGEN/CEDARS NONREACTIVE (NONREACTIVE); HEPATITIS C VIRUS AB/CEDARS 12.21 S/CO (<0.80)
--- NOTE | 2016-05-21 11:57 | Discharge Summary ---
Discharge Summary Hospital Course Date of Admission May 14, 2016 at 01:15 Date of Discharge May 19, 2016 at 18:30 Admitting Diagnosis gangrene-foot,hyperkalemia HPI Lloyd Grigsby is a 60 year old male who was admitted on May 14, 2016 at 01: 15 for Gangrene-Foot,Hyperkalemia Hospital Course dc summary dictated # [id number] Discharge Medications Continued Medications: Acetaminophen (Acetaminophen) 650 Mg/20.3 Ml Solution 650 MG ORAL Q4HR PRN for Prn Headache/Temp > 101, ML 0 Refills Acyclovir* (Acyclovir*) 400 Mg Tablet 800 MG ORAL DAILY, TAB Bacitracin/Polymyxin B Sulfate (Polysporin Ointment) 28.3 Gm Oint...g. 1 APPLIC TP, #28.3 GM 0 Refills Chlorhexidine Gluconate (Peridex) 15 Ml Mouthwash 15 ML MM, ML Clonidine Hcl* (Catapres*) 0.1 Mg Tablet 0.1 MG ORAL EVERY 8 HOURS PRN for For High Blood Pressure, TAB Clopidogrel Bisulfate* (Plavix*) 75 Mg Tablet 75 MG ORAL DAILY, TAB Docusate Sodium* (Colace*) 100 Mg Capsule 100 MG ORAL TWICE A DAY, CAP Doxercalciferol (Hectorol) 0.5 Mcg Capsule 2.5 MCG PO DAILY, CAP Emtricitabine* (Emtriva*) 200 Mg Capsule 200 MG ORAL q wed and sat, CAP Emtricitabine* (Emtriva*) 200 Mg Capsule 200 MG ORAL, CAP every Wed & Sat @1700 Epoetin Jeremiah (Epogen) 20,000 Unit/1 Ml Vial [id number] UNIT SUBQ q mon wed and fri, VIAL Ergocalciferol (Vitamin D2)* (Vitamin D*) 50,000 Unit Capsule [id number] UNIT ORAL weekly, CAP Estrogens,Conjugated (Premarin) 0.45 Mg Tablet 0.625 MG ORAL DAILY, #30 TAB 0 Refills Ferrous Sulfate, Dried (Iron) 159 Mg Tablet.er 159 MG PO, TAB Folic Acid/Vitamin B Comp W-C (Renal Caps Softgel) 1 Mg Capsule 1 MG PO DAILY, CAP Hydromorphone Hcl (Dilaudid) 1 Mg/1 Ml Liquid 1 MG PO, ML Lactobacillus Acidophilus (Probiotic) 1 Each Capsule 1 EACH PO, CAP Lanthanum Carbonate (Fosrenol) 1,000 Mg Tab.chew 1500 MG PO TID, TAB Metoprolol Succinate* (Metoprolol Succinate*) 25 Mg Tab.er.24h 25 MG ORAL DAILY, TAB Minoxidil* (Loniten*) 2.5 Mg Tablet 2.5 MG PO Q12HR, TAB Nateglinide* (Starlix*) 60 Mg Tablet 120 MG ORAL THREE TIMES A DAY, TAB Nelfinavir Mesylate (Viracept) 625 Mg Tablet 625 MG PO, TAB Nifedipine Xl* (Procardia Xl*) 60 Mg Tab.er.24 60 MG ORAL DAILY, TAB Sxcmsiwmqerr-Ewvb-Hplqoqoh,Iso (Zosyn 3.375 Gm Pre Mix-Bag) 3.375 Gm/50 Ml Froz.piggy 2.25 GM IVPB EVERY 8 HOURS, BAG Ranitidine Hcl* (Zantac*) 150 Mg Tablet 150 MG ORAL DAILY, #30 TAB 0 Refills Sevelamer Carbonate* (Renvela*) 0.8 Gm Powd.pack 3200 MG ORAL THREE TIMES A DAY, PACK Sevelamer Hcl (Renagel) 800 Mg Tablet 4 TAB ORAL TID, #90 TAB 0 Refills Tenofovir Disoproxil Fumarate* (Viread*) 300 Mg Tablet 300 MG ORAL q sat, #30 TAB 0 Refills Vancomycin Hcl/D5w (Vancomycin-D5w 1 G/250 Ml) 1 Gm/250 Ml Plast..bag 1 GM IVPB ONCE A WEEK, BAG Discharge Condition Upon Discharge: stable Discharge Disposition Patient was discharged to Home with home health services for IV antibiotics Discharge Diagnoses: Enzo (Isael)Sunitha NP May 21, 2016 11:57
--- NOTE | 2016-05-22 03:47 | Discharge Summary 2 SIG ---
DATE OF ADMISSION: 05/14/2016 DATE OF DISCHARGE: 05/19/2016 REASON FOR ADMISSION: 60-year-old male presented due to the nonhealing foot ulcer and osteomyelitis. He complained of pain, aching, constant, nonradiating in bilateral feet. The patient with multiple chronic medical problems including end-stage renal disease, anemia of chronic renal disease, history of osteomyelitis, right foot second toe and left foot infection with osteomyelitis, peripheral vascular disease, renal osteodystrophy, diabetes mellitus out of control, and HIV status. Upon admission, there was no dyspnea, no chest pain, no cough. No nausea, vomiting, or diarrhea. No dysuria. No headache. The patient presented with potassium 5.8 which was treated in the emergency room. The patient transferred to med/surg floor for further management. ADMITTING DIAGNOSIS: osteomyelitis nonhealing foot ulcer peripheral vascular disease, end-stage renal disease, osteomyelitis hyperkalemia HOSPITAL COURSE: Infectious Disease doctor, fell cutter, frozen foods manager, and packaging clerk as well as the panel monitor were involved in care of this complex patient. The patient was seen by panel monitor and undergone amputation of the right second toe as well as the debridement of the left foot with left leg revascularization . Wound care as per panel monitor's, antibiotics were optimized by Infectious Disease doctor. The patient had a PICC line for long-term antibiotics. ID recommended total course of antibiotics to continue for six weeks. HAART therapy continued as per Infectious Disease doctor. Wound care as per Podiatry recommendations. Supplemental oxygen and pulmonary toilet provided as needed. Chest x-ray was negative for any acute cardiopulmonary disease. The patient on room air saturation was stable. No shortness of breath Rate Setter seen the patient for severe aortic regurgitation. Per frozen foods manager, the patient was completely asymptomatic, so no intervention required at this time. Blood pressure was managed with multiple regimen of minoxidil, clonidine,nifedipine, and metoprolol. EKG with normal sinus rhythm. Left anterior fascicular block. Hemodialysis was done as per Nephrology orders. Renal parameters and electrolytes were closely monitored. Pain management provided. The patient was working with physical and occupational therapist. GI prophylaxis provided. Bowel regimen instituted. Noted lipid panel with elevated triglyceride. The patient was counseled on low-fat cardiac diet. Hemoglobin and hematocrit were closely monitored. At the time of this admission, hemoglobin remained at the baseline. The patient has anemia secondary to chronic renal disease. Blood sugar was managed with the sliding scale of insulin, stable. Hemoglobin A1c is 4.1. Hepatitis panel with positive hepatitis C, LFT were trending down to normal. The patient was cleared by ID doctor for discharge on the IV antibiotics for total of six weeks. FINAL DIAGNOSES: 1. Bilateral foot osteomyelitis. 2. Status post debridement of left foot and left foot revascularization and amputation of right second toe. 3. Peripheral vascular disease. 4. Diabetes. 5. Hypertension. 6. Human immunodeficiency virus status. 7. Severe aortic regurgitation. 8. End-stage renal disease, on hemodialysis. 9. Hepatitis C. 10. Elevated transaminase-resolved . Louis Barahona D.O. I have been assigned to dictate discharge summary on this account and I was not involved in the patient's management. Sunitha MorenoWeill Cornell Medical CenterCassius N.PJonnie DR: Cristy JOB#: [id number] CC: AMBAR
== END 2016-05-19 18:30 | disposition home health service (06) | DRG 617 ==
LOC: EMR 01:00 → EDSEX 01:15 → 2W 01:15 → EDBEDREQSVC 05:00 → EDBEDREQ 05:20 → 2E 05-15 08:35 → 4W 05-16 01:14
PROC: 5A1D60Z (ICD-10-PCS; 2016-05-14)
PROC: 0Y6R0Z0 Detachment at Right 2nd Toe, Complete, Open Approach (ICD-10-PCS; principal; 2016-05-15 15:15)
DX: E11.69 Type 2 diabetes mellitus with other specified complication (principal); I12.0 Hypertensive chronic kidney disease with stage 5 chronic kidney disease or end stage renal disease; N18.6 End stage renal disease; M86.671 Other chronic osteomyelitis, right ankle and foot; E11.65 Type 2 diabetes mellitus with hyperglycemia; E11.52 Type 2 diabetes mellitus with diabetic peripheral angiopathy with gangrene; E11.621 Type 2 diabetes mellitus with foot ulcer; B19.20 Unspecified viral hepatitis C without hepatic coma; Z99.2 Dependence on renal dialysis; E87.5 Hyperkalemia; N25.0 Renal osteodystrophy; D63.1 Anemia in chronic kidney disease; B96.20 Unspecified Escherichia coli [E. coli] as the cause of diseases classified elsewhere; I35.1 Nonrheumatic aortic (valve) insufficiency; L97.529 Non-pressure chronic ulcer of other part of left foot with unspecified severity; I44.4 Left anterior fascicular block; L97.519 Non-pressure chronic ulcer of other part of right foot with unspecified severity; Z88.2 Allergy status to sulfonamides
CPT/HCPCS: 36415; 71010; 80048; 80053; 80061; 80202; 82550; 82962; 83036; 83880; 84439; 84443; 84481; 84484; 85025; 85610; 85651; 85730; 86140; 86706; 86707; 86803; 86850; 86900; 86901; 87081; 93005; 94003; 94150; 94664; J1815; J2250; J2405

== ENCOUNTER 2016-05-22 13:35 | Inpatient (IN) | payer BC ==
[~2016-05-22] VITALS: Ht 172.7 cm; Wt 81.6 kg
[~2016-05-22 13:35] MED LIST changes: +POLYSPORIN OI28.3 GM TP; +PREMARIN0.45 MG ORAL; +PROBIOTIC1 EAC2 PO; +STARLIX60 MG ORAL; +SYSTANE 0.3-0.415 ML OP
[2016-05-22 14:30] VITALS: BP 151/45
--- NOTE | 2016-05-22 14:59 | Emergency Room Report ---
History of Present Illness General Chief Complaint: General Complaint Source: Patient, EMS Present Illness HPI 60 YO M here because "I need dialysis" - last session was 3 days ago in hospital. Per EMR, patient discharged May 19. He is s/p recent amputation of right middle toe. History includes ESRD, osteomyelitis, HIV on HAART, DM, HTN, PVD. Was DCed by ID on IV Abx per port. Patient also c/o of left toe pain although "I dont have any toes." He is making specific request for dialudid as only thing that works for pain. Allergies: Coded Allergies: HEPARIN (Verified Allergy, Severe, low platelets, 06/11/14) SULFA (SULFONAMIDE ANTIBIOTICS) (Verified Allergy, Severe, nephro toxic, ) ZOLPIDEM (Verified Allergy, Unknown, 05/03/16) MEROPENEM (Verified Adverse Reaction, Intermediate, 04/01/16) Nausea and vomiting Uncoded Allergies: pork products (Allergy, Severe, rashes, 06/11/14) Patient History Past Medical History: see triage record, old chart reviewed Past Surgical History: other - see hpi Pertinent Family History: none Social History: Denies: alcohol use, drug use, smoking Immunizations: UTD Reviewed Nursing Documentation: PMH: Agreed, PSxH: Agreed Nursing Documentation-PMH Past Medical History: No History, Except For Hx Cardiac Problems: Yes - Osteomylitis, HHT, CHF, TIA Hx Hypertension: Yes - HIV, Hep C Hx Diabetes: Yes Hx Cancer: No Hx Gastrointestinal Problems: Yes Hx Dialysis: Yes - ESRD Hx Neurological Problems: Yes - [facility] Hx Transient Ischemic Attacks: Yes Hx Seizures: Yes Hx Weakness: Yes - right side Review of Systems All Other Systems: negative except mentioned in HPI Physical Exam Vital Signs Date Time Temp Pulse Resp B/P Pulse Ox O2 Delivery O2 Flow Rate FiO2 05/22/16 14:10 97.7 64 18 148/64 100 Room Air Sp02 EP Interpretation: reviewed, normal General Appearance: normal inspection, well appearing, no apparent distress, alert, GCS 15, non-toxic Head: normocephalic, atraumatic Eyes: bilateral eye EOMI, bilateral eye PERRL ENT: normal ENT inspection, hearing grossly normal, normal voice Neck: normal inspection, full range of motion, supple, no bony tend Respiratory: normal inspection, lungs clear, normal breath sounds, no rhonchi, no respiratory distress, no retraction, no accessory muscle use, no wheezing Cardiovascular #1: regular rate, rhythm, no edema Gastrointestinal: normal inspection, normal bowel sounds, non tender, soft, no guarding, no hernia Genitourinary: no CVA tenderness Musculoskeletal: normal inspection, back normal, normal range of motion, [place]' s Sign negative, other - Left foot: s/p amputation all toes. No appreciable warmth or sign of infection. +1 pitting edema. Right foot: No sign of infection at recent amputation site. Both feet well wrapped, wounds care for properlhy. Neurologic: normal inspection, alert, oriented x3, responsive, hotel front desk clerk III-XII nml as tested, speech normal Medical Decision Making Diagnostic Impression: Primary Impression: Pain Additional Impressions: Hyperkalemia CKD (chronic kidney disease) Qualified Codes: N18.9 - Chronic kidney disease, unspecified ER Course 60 YO M with left foot pain and "request for dialysis." VSS Afebrile No acute SOB. VSS. Unlikely acute pulm edema currently Left foot pain likely phantom pain s/p amputation PLAN: Will check labs for metabolic abnormalities. Tx pain. Reassess EKG Diagnostic Results Rate: normal, other - PVCs Rhythm: other - incomplete RBBB Rhythm Strip Diag. Results EP Interpretation: yes Rate: 69 Rhythm: NSR, other - PVCs Chest X-Ray Diagnostic Results EP Interpretation: Yes Findings: no consolidation, no effusion, no pneumothorax, no acute cardiopulmonary disease, other - Cardiomegaly Number of Views: 1 Reevaluation Time: 16:15 Last Vital Signs Date Time Temp Pulse Resp B/P Pulse Ox O2 Delivery O2 Flow Rate FiO2 05/22/16 14:10 97.7 64 18 148/64 100 Room Air Status: improved Reevaluation Impression 415pm: Patient's family member arrives, states she was told by patient's sausage grinder, ID specialist, and PMD to come to ED for admission to facilitate transfer for hyperbaric O2 facility AND for dialysis. She also states patient walked unassisted without her watching and she's worried "his feet will go back and I want the sausage grinder to see him here." Patients exam of lungs and CXR do NOT demonstrate acute process requiring emergent bipap or dialysis at this time. Labs: K 6.2 serumCr 11.2 Glucose 50 unhemolyzed Patient needs dialysis for metabolic derangment HyperK tx with Calcium, albuterol, and kayexelate. 2amp glucose given Endorsed to Dr Olivo for admission at 622pm to [facility] bed. Disposition: ADMITTED INPATIENT Condition: Serious Referrals: NON PHYSICIAN (PCP) COSME CAUSEY M.D. May 22, 2016 14:59
[2016-05-22 15:00] VITALS: BP 153/53
--- NOTE | 2016-05-22 15:45 | Diagnostic Imaging Report ---
Indication: PAIN Technique: One view of the chest Comparison: 05/14/2016 Findings: Heart is enlarged. Lungs and pleural spaces are clear. The aorta is tortuous and calcified. Findings are unchanged Impression: Cardiomegaly. No acute process
[2016-05-22 15:57] LABS: BASOPHILS % (AUTO) 2.1 % (0.0-2.0); EOSINOPHILS % (AUTO) 7.4 % (0.0-3.0); LYMPHOCYTES % (AUTO) 40.9 % (20.0-45.0); MEAN CORPUSCULAR HEMOGLOBIN 30.2 PG (27.0-31.0); MEAN CORPUSCULAR HGB CONC 31.3 G/DL (32.0-36.0); MEAN CORPUSCULAR VOLUME 96 FL (80-99); MEAN PLATELET VOLUME 7.4 FL (6.5-10.1); MONOCYTES % (AUTO) 12.8 % (1.0-10.0); NEUTROPHILS % (AUTO) 36.8 % (45.0-75.0); PLATELET COUNT 279 K/UL (150-450); RED BLOOD COUNT 3.24 M/UL (4.70-6.10); RED CELL DISTRIBUTION WIDTH 15.3 % (11.6-14.8); WHITE BLOOD COUNT 6.5 K/UL (4.8-10.8)
[2016-05-22 16:30] LABS: CKMB 1.9 ng/mL (< 6.7)
[2016-05-22 16:31] LABS: ALBUMIN/GLOBULIN RATIO 0.7 (1.0-2.7); CALCIUM 9.5 mg/dL (8.6-10.2); CREATININE 11.2 mg/dL (0.7-1.2); GLOMERULAR FILTRATION RATE 5.7 mL/min (>60); TOTAL PROTEIN 8.8 g/dL (6.6-8.7)
[2016-05-22 16:33] LABS: POTASSIUM 8.5 mEQ/L (3.4-4.9)
[2016-05-22 17:52] LABS: ALBUMIN/GLOBULIN RATIO 0.8 (1.0-2.7); CALCIUM 9.8 mg/dL (8.6-10.2); CREATININE 11.6 mg/dL (0.7-1.2); GLOMERULAR FILTRATION RATE 5.5 mL/min (>60); TOTAL PROTEIN 8.3 g/dL (6.6-8.7)
[2016-05-22 18:10] LABS: POTASSIUM 6.2 mEQ/L (3.4-4.9)
[2016-05-22] MEDS ORDERED: Albuterol ud Inhalation HHN ONE (18:15)
[2016-05-22] MEDS ORDERED: Calcium Gluconate 10% 1 GM in NS 110 ML IVPB ONE (18:15)
[2016-05-22] MEDS ORDERED: Calcium Gluconate 1gm/10ml vial ONE (18:24)
[2016-05-22 18:53] VITALS: BP 155/68
[2016-05-22] MEDS ORDERED: Miralax 17gm pkt ORAL PRN (20:45)
[2016-05-22] MEDS ORDERED: DiphenhydrAMINE 50mg/ml Inj IVP PRN (20:45)
[2016-05-22] MEDS ORDERED: Acetaminophen 650mg/20.3ml ORAL PRN (20:45)
[2016-05-22] MEDS ORDERED: LORazepam 1mg tab ORAL PRN (20:45)
[2016-05-22] MEDS: Sodium Polystyrene Sulfonate 15gm Powder ORAL ONE (20:56)
[2016-05-22] MEDS: Minoxidil 2.5mg tab ORAL SCH (21:00)
[2016-05-22] MEDS: NovoLOG Insulin Flexpen SUBQ SCH (21:00)
[2016-05-22] MEDS ORDERED: OXYCODONE-ACET1 EAC5 ORAL (21:56)
[2016-05-23] MEDS: Sodium Polystyrene Sulfonate 15gm Powder ORAL ONE (00:05)
[2016-05-23 00:13] VITALS: BP 140/51
[2016-05-23] MEDS: Norco 5mg/325mg tab ORAL PRN ×2 (03:34→18:11)
[2016-05-23 04:09] VITALS: BP 160/54
[2016-05-23 04:34] VITALS: BP 137/55
[2016-05-23] MEDS: NovoLOG Insulin Flexpen SUBQ SCH ×4 (06:30→21:00)
[2016-05-23 07:52] LABS: CALCIUM 9.2 mg/dL (8.6-10.2); CREATININE 12.3 mg/dL (0.7-1.2); GLOMERULAR FILTRATION RATE 5.1 mL/min (>60); POTASSIUM 4.9 mEQ/L (3.4-4.9)
[2016-05-23 08:10] LABS: BASOPHILS % (AUTO) 1.3 % (0.0-2.0); EOSINOPHILS % (AUTO) 10.4 % (0.0-3.0); LYMPHOCYTES % (AUTO) 40.2 % (20.0-45.0); MEAN CORPUSCULAR HGB CONC 30.6 G/DL (32.0-36.0); MEAN CORPUSCULAR VOLUME 98 FL (80-99); MEAN PLATELET VOLUME 6.7 FL (6.5-10.1); MONOCYTES % (AUTO) 9.9 % (1.0-10.0); NEUTROPHILS % (AUTO) 38.2 % (45.0-75.0); PLATELET COUNT 238 K/UL (150-450); RED BLOOD COUNT 2.85 M/UL (4.70-6.10); RED CELL DISTRIBUTION WIDTH 14.4 % (11.6-14.8)
[2016-05-23] MEDS ORDERED: Lanthanum 1000mg tab ORAL SCH (09:00)
[2016-05-23] MEDS: Minoxidil 2.5mg tab ORAL SCH ×2 (09:00→22:02)
--- NOTE | 2016-05-23 09:05 | General Progress Note ---
Progress Note Progress Note [id number] pt seen and examined full note dictated LB SON May 23, 2016 09:05
[2016-05-23] MEDS: Lanthanum 1000mg tab ORAL SCH ×3 (09:18→17:55)
[2016-05-23] MEDS: Docusate 100mg cap ORAL SCH ×2 (09:18→17:55)
[2016-05-23] MEDS ORDERED: EMTRICITABINE 200 MG ORAL SCH (11:30)
[2016-05-23 14:01] LABS: PHOSPHORUS 9.4 mg/dL (2.5-4.8)
--- NOTE | 2016-05-23 15:56 | Infectious Diseases Prog Note ---
Assessment/Plan Assessment/Plan HPI: 60 yo known to me, asked to evaluate and manage for left foot osteo/wound ASSESSMENT AND PLAN: 1. esbl e.coli/likely polymicrobial left foot wound infection with osteomyelitis and right foot 2nd toe osteo/wound - s/p debridement of left foot , left leg revascularization and amputation right foot 2nd toe - zosyn and vancomycin for another 10 days for total of 6-8 weeks abx tx ( would have had at least 6 weeks) for left foot osteo - would consider right foot 2nd amputation as definitive treatment for osteo - watch labs and sed rate - most recent wound culture of left foot and right food 2nd toe at [facility] were negative - patient with line access - ? mid line vs picc line - wound vac left foot - wounds stable - elevated sed rate but had recent right foot 2nd toe osteo resection, continue to monitor - surgery f/u 2. Wound care per podiatry and surgery 3. End-stage renal disease on hemodialysis, treatment per Renal. 4. Diabetes. 5. Hypertension. 6. Blood sugar and blood pressure control per primary. 7. Human immunodeficiency virus 8. Antiviral therapy. 9. continue HIV anti-retroviral therapy, f/u with primary hiv md 10. Anemia. 11. Peripheral vascular disease. 12. Gastrointestinal disease. 13. Fistula. 14. Neurologic disease, VAD. 15. Transient ischemic attack. 16. Weakness. 17. Seizures. 18. Left ventricular hypertrophy. 19. Atrial septal defect. 20. Coagulopathy, hematological disorder. 21. Past medical history as noted. 22. Allergies to sulfa, pork and heparin, [facility] 23. Case was discussed with the patient 24. wound care per protocol 25. Case was discussed with RN. 26. Notes and records were reviewed. 27. MAR was noted. 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 d/w Subjective Constitutional: Reports: fatigue, Denies: fever HEENT: Denies: congestion Respiratory: Denies: shortness of breath Cardiovascular: Denies: chest pain Gastrointestinal/Abdominal: Denies: diarrhea, nausea, vomiting Genitourinary: Reports: other - no agarwal Neurologic: Denies: headache Psychiatric: Denies: depression Skin: Denies: rash Hematologic: Denies: bleeding Musculoskeletal: Denies: pain Allergies: Coded Allergies: HEPARIN (Verified Allergy, Severe, low platelets, 06/11/14) SULFA (SULFONAMIDE ANTIBIOTICS) (Verified Allergy, Severe, nephro toxic, ) ZOLPIDEM (Verified Allergy, Unknown, 05/03/16) MEROPENEM (Verified Adverse Reaction, Intermediate, 04/01/16) Nausea and vomiting Uncoded Allergies: pork products (Allergy, Severe, rashes, 06/11/14) Objective Vital Signs Last 24 Hour Vital Signs Date Time Temp Pulse Resp B/P Pulse Ox O2 Delivery O2 Flow Rate FiO2 05/23/16 15:16 Room Air 05/23/16 10:50 Room Air 05/23/16 08:04 77 05/23/16 04:34 78 137/55 05/23/16 04:09 98.3 84 21 160/54 95 Room Air 05/23/16 03:59 84 05/23/16 00:13 98.8 88 20 140/51 96 Room Air 05/22/16 23:50 75 05/22/16 19:09 98.1 71 17 155/68 100 Room Air 05/22/16 18:53 98.1 71 17 155/68 100 Room Air 05/22/16 18:42 67 16 100 Room Air 05/22/16 18:41 69 17 100 Room Air 05/22/16 18:40 68 16 Room Air 05/22/16 18:16 97.7 Height (Feet): 5 Height (Inches): 8.00 Weight (Pounds): 180 General Appearance: no acute distress HEENT: normocephalic, atraumatic, anicteric, mucous membranes moist, PERRL Respiratory/Chest: chest wall non-tender, lungs clear, normal breath sounds, no respiratory distress, no accessory muscle use Cardiovascular: normal rate, regular rhythm, no gallop/murmur, no JVD Abdomen: normal bowel sounds, soft, non tender, no organomegaly, non distended Genitourinary: other - no agarwal Extremities: other - left foot wound - clean Skin: no rash Neurologic/Psychiatric: welder railcar mechanic II-XII grossly normal, alert, oriented x 3, responsive Lymphatic: no neck adenopathy Musculoskeletal: no effusion Objective chest x-ray - cm, cad none Laboratory Tests Test 05/22/16 17:15 05/23/16 07:00 05/23/16 12:30 Sodium Level 138 mEQ/L (135-145) 138 mEQ/L (135-145) Potassium Level 6.2 mEQ/L (3.4-4.9) *H 4.9 mEQ/L (3.4-4.9) Chloride Level 92 mEQ/L (98-107) L 91 mEQ/L (98-107) L Carbon Dioxide Level 21 mEQ/L (20-30) 20 mEQ/L (20-30) Anion Gap 25 (5-15) H 27 (5-15) H Blood Urea Nitrogen 100 mg/dL (7-23) H 100 mg/dL (7-23) H Creatinine 11.6 mg/dL (0.7-1.2) H 12.3 mg/dL (0.7-1.2) H Estimat Glomerular Filtration Rate 5.5 mL/min (>60) 5.1 mL/min (>60) Glucose Level 56 mg/dL (74-106) L 90 mg/dL (74-106) Calcium Level 9.8 mg/dL (8.6-10.2) 9.2 mg/dL (8.6-10.2) Total Bilirubin 0.6 mg/dL (0.0-1.2) Aspartate Amino Transf (AST/SGOT) 40 U/L (5-40) Alanine Aminotransferase (ALT/SGPT) 16 U/L (3-41) Alkaline Phosphatase 126 U/L (40-129) Total Protein 8.3 g/dL (6.6-8.7) Albumin 3.9 g/dL (3.5-5.2) Globulin 4.4 g/dL Albumin/Globulin Ratio 0.8 (1.0-2.7) L White Blood Count 5.0 K/UL (4.8-10.8) Red Blood Count 2.85 M/UL (4.70-6.10) L Hemoglobin 8.5 G/DL (14.2-18.0) L Hematocrit 28.0 % (42.0-52.0) L Mean Corpuscular Volume 98 FL (80-99) Mean Corpuscular Hemoglobin 30.0 PG (27.0-31.0) Mean Corpuscular Hemoglobin Concent 30.6 G/DL (32.0-36.0) L Red Cell Distribution Width 14.4 % (11.6-14.8) Platelet Count 238 K/UL (150-450) Mean Platelet Volume 6.7 FL (6.5-10.1) Neutrophils (%) (Auto) 38.2 % (45.0-75.0) L Lymphocytes (%) (Auto) 40.2 % (20.0-45.0) Monocytes (%) (Auto) 9.9 % (1.0-10.0) Eosinophils (%) (Auto) 10.4 % (0.0-3.0) H Basophils (%) (Auto) 1.3 % (0.0-2.0) Calcium (Send out) Pending Phosphorus Level 9.4 mg/dL (2.5-4.8) H Iron Level 73 ug/dL (59-158) Total Iron Binding Capacity 198 ug/dL (250-400) L Percent Iron Saturation 37 % (15-50) Unsaturated Iron Binding 125 ug/dL (112-346) Parathyroid Hormone (Intact) Pending Current Medications Medications (Trade) Dose Ordered Sig/Zohaib Route PRN Reason Start Time Stop Time Status Last Admin Dose Admin Acetaminophen (Tylenol) 650 mg Q4H PRN ORAL Prn Headache/Temp > 101 05/22/16 20:45 06/21/16 20:44 Acetaminophen/ Hydrocodone Bitart (Cuney 5/325) 1 tab Q8H PRN ORAL For Pain 05/22/16 20:45 05/29/16 20:44 05/23/16 03:34 Clonidine HCl (Catapres) 0.1 mg Q8H PRN ORAL For High Blood Pressure 05/22/16 20:45 06/21/16 20:44 Clopidogrel Bisulfate (Plavix) 75 mg DAILY ORAL 05/23/16 09:00 06/22/16 08:59 05/23/16 09:18 Dextrose (Dextrose 50%) STAT PRN IV Hypoglycemia 05/22/16 20:45 06/21/16 20:44 Diphenhydramine HCl (Benadryl) 50 mg Q6H PRN IVP Itching/Pruritis 05/22/16 20:45 06/21/16 20:44 Docusate Sodium (Colace) 100 mg TWICE A DAY ORAL 05/23/16 09:00 06/22/16 08:59 05/23/16 09:18 Epoetin Jeremiah (Procrit (for ESRD on dialysis)) 10,000 units MON-WED-FRI SUBQ 05/23/16 21:00 06/22/16 20:59 Ferrous Sulfate (Feosol) 325 mg THREE TIMES A DAY ORAL 05/23/16 09:00 06/22/16 08:59 05/23/16 09:18 Insulin Aspart (NovoLOG) BEFORE MEALS AND HS SUBQ 05/22/16 21:00 06/21/16 20:59 Lanthanum Carbonate (Fosrenol) 1,500 mg TID ORAL 05/23/16 09:00 06/22/16 08:59 05/23/16 09:18 Lorazepam (Ativan) 1 mg Q6H PRN ORAL For Anxiety 05/22/16 20:45 05/29/16 20:44 Metoprolol Succinate (Toprol XL) 25 mg DAILY ORAL 05/23/16 09:00 06/22/16 08:59 Minoxidil (Loniten) 2.5 mg Q12HR ORAL 05/22/16 21:00 06/21/16 20:59 Nateglinide (Starlix) 120 mg THREE TIMES A DAY ORAL 05/23/16 09:00 06/22/16 08:59 Nifedipine (Procardia XL) 60 mg DAILY ORAL 05/23/16 09:00 06/22/16 08:59 Ondansetron HCl (Zofran) 4 mg Q6H PRN IV Nausea & Vomiting 05/22/16 20:45 06/21/16 20:44 Patient Own Medication (Patient's Own Med) 1 flavio Sa@1630 ORAL 05/26/16 16:30 06/25/16 16:29 UNV Patient Own Medication (Patient's Own Med) 1 ea WeSa@0900 ORAL 05/23/16 11:30 06/22/16 11:29 Patient Own Medication (Patient's Own Med) 2 ea BID ORAL 05/23/16 18:00 06/22/16 17:59 Polyethylene Glycol (Miralax) 17 gm DAILY PRN ORAL Constipation 05/22/16 20:45 06/21/16 20:44 Ranitidine HCl (Zantac) 150 mg DAILY ORAL 05/23/16 09:00 06/22/16 08:59 05/23/16 09:18 INOCENCIA DOS SANTOS May 23, 2016 15:56
[2016-05-23 16:00] VITALS: BP 164/50
--- NOTE | 2016-05-23 16:06 | Wound Care Consultation ---
Wound Assessment Wound Assessment #1: Wound Present on Admission: Yes New Wound: No Status Change of Wound: No Wound Location Body Site Modif: mid Wound Location Body Site: sacral Wound Type: pressure ulcer Alexandra Test: Does not Alexandra Pressure Ulcer Stage: III Wound Thickness: Full Thickness Wound Length: 2.5 Wound Width: 1.5 Wound Depth: 0.3 Percent of Wound Oriental/Red: 100 Wound Drainage Description: Serosanguineous Wound Drainage Amount: Scant Wound Drainage Odor: None/Absent Tissue Surrounding Wound: Macerated Wound General Appearance: Reddened, Well Approximated Wound Assessment #2: Wound Number: #2 Wound Present on Admission: Yes New Wound: No Status Change of Wound: No Wound Location Body Site Modif: left Wound Location Body Site: buttocks Wound Type: pressure ulcer Alexandra Test: Does not Alexandra Pressure Ulcer Stage: III Wound Thickness: Full Thickness Wound Length: 2.5 Wound Width: 2.5 Wound Depth: 0.3 Percent of Wound Oriental/Red: 100 Wound Drainage Description: Serosanguineous Wound Drainage Amount: Scant Wound Drainage Odor: None/Absent Tissue Surrounding Wound: Macerated Wound General Appearance: Reddened, Well Approximated Wound Assessment #3: Wound Number: #3 Wound Present on Admission: Yes New Wound: No Status Change of Wound: No Wound Location Body Site Modif: right Wound Location Body Site: buttocks Wound Type: pressure ulcer Alexandra Test: Does not Alexandra Wound Thickness: Full Thickness - scar tissue Wound Length: 1.0 Wound Width: 1.0 Percent of Wound Oriental/Red: 100 Wound Drainage Amount: None Wound Drainage Odor: None/Absent Tissue Surrounding Wound: Macerated Wound General Appearance: Reddened Wound Assessment #4: Wound Number: #4 Wound Present on Admission: Yes New Wound: No Status Change of Wound: No Wound Location Body Site Modif: left, lateral Wound Location Body Site: foot Wound Type: vascular wound Alexandra Test: Does not Alexandra Wound Thickness: Full Thickness Wound Length: 6.5 Wound Width: 3.5 Wound Depth: 0.3 Percent of Wound Oriental/Red: 100 Wound Drainage Description: Serosanguineous Wound Drainage Amount: Moderate Wound Drainage Odor: None/Absent Tissue Surrounding Wound: Macerated Wound General Appearance: Reddened, Well Approximated, Draining Wound Assessment #5: Wound Number: #5 Wound Present on Admission: Yes New Wound: No Status Change of Wound: No Wound Location Body Site Modif: right, lateral Wound Location Body Site: toe - 5th Wound Type: vascular wound Alexandra Test: Does not Alexandra Wound Thickness: Full Thickness Wound Length: 2.0 Wound Width: 1.5 Wound Depth: utd Percent of Wound Black/Brown: 100 Wound Drainage Amount: None Wound Drainage Odor: None/Absent Tissue Surrounding Wound: Intact Wound General Appearance: Asymptomatic, Blackened Wound Assessment #6: Wound Number: #6 Wound Present on Admission: Yes New Wound: No Status Change of Wound: No Wound Location Body Site Modif: right, lateral Wound Location Body Site: metatarsal head - 5th Wound Type: vascular wound Alexandra Test: Does not Alexandra Wound Thickness: Full Thickness Wound Length: 2.5 Wound Width: 2.0 Wound Depth: utd Percent of Wound Black/Brown: 100 Wound Drainage Amount: None Wound Drainage Odor: None/Absent Tissue Surrounding Wound: Intact Wound General Appearance: Asymptomatic, Blackened Wound Assessment #7: Wound Number: #7 Wound Present on Admission: Yes New Wound: No Status Change of Wound: No Wound Location Body Site Modif: right Wound Location Body Site: toe - 2nd Wound Type: incision - s/p amputation Alexandra Test: Does not Alexandra Incisional Wounds: S/P Amputation Wound Drainage Amount: None Wound Drainage Odor: None/Absent Tissue Surrounding Wound: Intact Wound General Appearance: Sutures Intact Wound Comment #1 Sacral stage III pressure ulcer #2 Left buttock stage III pressure ulcer #3 Right buttock full thickness scar tissue pressure ulcer #4 Left lateral foot s/p amputation with wound vac.Hx of amputation of left toes. #5 Right lateral 5th toe with dry scab adhered to the wound bed #6 Right Lateral 5th metatarsal head with dry scab adhered to the wound bed #7 Right 2nd toe s/p amputation Dr Blackburn is on the case. Pt with Hx of PVD, ESRD, on dialysis, HIV, osteomyelitis to name the few. Recommendation sacral and Right buttock -Cleanse with saline pat dry apply Triad cream cover with bordered gauze daily and PRN soiled/dislodged -Local wound treatment for Left and Right foot as ordered by MD -Turn and reposition -Keep clean and dry -Low air loss overlay mattress -Optimize nutrition -Assess and f/u accordingly for any changes SCOOBY UP RN May 23, 2016 16:06
[2016-05-23] MEDS: VIRACEPT ORAL SCH (17:55)
[2016-05-23] MEDS ORDERED: Vancomycin 1250mg in D5W 275ml IVPB ONE (18:00)
[2016-05-23 20:00] VITALS: BP 104/74
--- NOTE | 2016-05-23 20:47 | History and Physical Report ---
DATE OF ADMISSION: 05/22/2016 REASON FOR ADMISSION: Hyperkalemia, electrolyte abnormality, and phantom pain in the toes. HISTORY OF PRESENT ILLNESS: The patient is an unfortunate, 60-year-old male with past medical history significant for history of end-stage renal disease, anemia of chronic kidney disease, renal osteodystrophy, hypertension, history of osteomyelitis, and nonhealing of ulceration in both lower extremities, status post revascularization by Dr. Dang and toe amputation by Dr. Blackburn. He was sent not too long ago, about 3 days ago, to home based on the information that was obtained from from his . The patient on last admission refused to be set as an outpatient for the hemodialysis. The patient also had a PICC line for continuation ertapenem. The patient was out for three days and the states that she does home dialysis. Apparently, the patient was not getting any dialysis and was brought in to [facility] for evaluation. In the ER, the patient was found to be severely hyperkalemic and she was consequently admitted for the above condition and I was called for admission. PAST MEDICAL HISTORY: 1. History of end-stage renal disease. 2. Anemia of chronic kidney disease. 3. Renal osteodystrophy. 4. Human immunodeficiency virus. 5. Hypertension. 6. Bilateral lower extremity ulceration. 7. History of sacral decubitus stage II. 8. History of extended-spectrum beta-lactamase E. coli of the wound. 9. History of chronic aortic regurgitation. PAST SURGICAL HISTORY: 1. AV fistula placement. 2. Amputation of the toes. 3. Peripheral revascularization. ALLERGIES: He is allergic to Ambien and heparin. SOCIAL HISTORY: Basically, based on the claim by his , he has been in the hospital for the last seven years. Apparently, he has been getting treatment for five days and the will take him home over the weekend and drop him again at the hospital on Saturday for the continuation. She also claimed that the patient has been receiving dialysis five days a week. MEDICATIONS: Medication reconciliation was reviewed. REVIEW OF SYSTEMS: General: He is complaining of generalized weakness. Denied any fever, chills, or night sweats. Head And Neck: Denies any dysphagia, odynophagia, blurry vision, headache, or neck stiffness. Pulmonary: No shortness of breath, cough, or sputum. Cardiovascular: No chest pain or palpitations. Gastrointestinal: No nausea. No vomiting. No melena or hematemesis. Genitourinary: Denies any dysuria, frequency, or hematuria. PHYSICAL EXAMINATION: VITAL SIGNS: The patient has a temperature of 98, blood pressure of 140/51, pulse rate of 88, and respiratory rate of 18. HEAD AND NECK: No JVP. No LAD. No thyromegaly. Extraocular movements are intact. Pupils are reactive to light and accommodation. LUNGS: Clear to auscultation. CARDIAC: Regular rate and rhythm. S1 and S2. No murmur. No rub. ABDOMEN: Soft, nontender, and nondistended. EXTREMITIES: Bilateral lower extremity is in the dressing for the wound and the dressing was recently changed, so I did not recheck the wound at this point. The patient is status post right second toe amputation. The wound at this point seems to be clean without any oozing or any other problem. He has right foot heel ulceration, which is not open and he does not have any discharges. Has a decubitus ulcer in the sacrum area, which is mostly excoriation and there is no evidence of discharge. LABORATORY DATA: Lab values revealed WBC count of 5, hemoglobin of 8.5, hematocrit of 28, and platelet count of 238,000. Chemistry reveals sodium 138, potassium 4.9, chloride 91, bicarbonate 20, BUN is 100, creatinine is 12.3, and calcium of 9.2. CBC revealed WBC count of 5, hemoglobin of 8.5, hematocrit of 28, and platelet count of 238,000. ASSESSMENT: 1. End-stage renal disease. 2. Anemia of chronic kidney disease. 3. Hyperkalemia. 4. Acidosis. 5. Noncompliant with the treatment and management for the patient. PLAN: The patient was scheduled and [facility] was called and the order was placed last night on admission, but the patient has not received the dialysis as of now. We are waiting for the dialysis to be started at anytime today. Continue with the Epogen. Check the iron panel. Check the calcium, phosphorus, and PTH for evaluation of renal osteodystrophy. I will continue the IV antibiotics. I will discuss with the regarding outpatient setup for dialysis, home dialysis or the patient needs to have an outpatient dialysis setup. Janis Joni Olivo DR: JOSE ALEJANDRO JOB#: [id number] CC:
[2016-05-23] MEDS ORDERED: Epogen (for ESRD on dialysis) SUBQ SCH (21:00)
[2016-05-23] MEDS: Piperacillin/Tazobactam 2.25 GM in D5W 55 ML IVPB SCH (22:00)
--- NOTE | 2016-05-23 23:27 | History and Physical Report ---
DATE OF ADMISSION: 05/23/2016 TIME SEEN: 1 p.m. ADMITTING PHYSICIAN: Louis Barahona D.O. CONSULTANTS: 1. Janis Olivo M.D. 2. Yesenia Conway M.D. 3. Victor Hugo Blackburn D.P.M. CHIEF COMPLAINT: Weakness. BRIEF HISTORY: The patient is a 60-year-old male with ESRD, on dialysis, presents with increased weakness, diagnosed with the above, and admitted to telemetry floor for further treatment. Currently, getting dialysis here in bed. No complaints otherwise. PAST MEDICAL HISTORY: ESRD, dialysis, PVD, hypertension, and diabetes. PAST SURGICAL HISTORY: Recent foot surgery and shunt placement. MEDICATIONS: Includes Procrit, Plavix, Colace, Toprol, Starlix, Procardia, Zantac, Feosol, NovoLog, Lotensin, Tylenol, Catapres, Ativan, and Zofran. ALLERGIES: Heparin, sulfa, meropenem, and Zolpidem. SOCIAL HISTORY: He does not smoke. No alcohol. No intravenous drug abuse. FAMILY HISTORY: noncontributory. REVIEW OF SYSTEMS: No chest pain. Slightly short of breath. No nausea, vomiting, or diarrhea. PHYSICAL EXAMINATION: GENERAL: Calm in bed, oriented x3, and in no acute distress. VITAL SIGNS: Temperature 98 degrees, pulse 87, respirations 20, and blood pressure 137/55. CARDIOVASCULAR: No murmur. LUNGS: Poor exchange. ABDOMEN: Positive bowel sounds. Nontender and nondistended. EXTREMITIES: No cyanosis, clubbing, or edema. Foot dressing is clean and dry. NEUROLOGIC: The patient moves all extremities. He is still slightly weak. LABORATORY DATA: Lab exam show hemoglobin 8.5, otherwise CBC is normal. BMP show sodium 138 initially, potassium 8.5, now is 4.9, and chloride 91. BUN and creatinine are 100 and 2.3. Glucose . ASSESSMENT: 1. End-stage renal disease. 2. Weakness. 3. Peripheral vascular disease. 4. Anemia. 5. Hypertension. 6. Diabetes. PLAN: Continue premedications. OT, PT, and dietary evaluation. CBC and BMP in the morning. Resume home medications and dialysis. Blood pressure and blood sugar control. Dr. Reed, Dr. Olivo, Dr. Conway, and Dr. Blackburn to consult. We will continue to follow this patient medically. Louis Barahona D.O. DR: DC JOB#: [id number] CC:
[2016-05-24 00:10] VITALS: BP 168/49
[2016-05-24] MEDS: Norco 5mg/325mg tab ORAL PRN (02:48)
[2016-05-24 04:05] VITALS: BP 155/52
[2016-05-24] MEDS: Piperacillin/Tazobactam 2.25 GM in D5W 55 ML IVPB SCH ×3 (06:00→22:22)
[2016-05-24] MEDS: NovoLOG Insulin Flexpen SUBQ SCH ×4 (06:30→22:24)
--- NOTE | 2016-05-24 08:39 | Nephrology Progress Note ---
Assessment/Plan Assessment 1. End-stage renal disease. 2. Anemia of chronic kidney disease. 3. Hyperkalemia. 4. Acidosis. 5. Noncompliant with the treatment and management for the patient. Plan plan to continue epogen dialysis today oral pain meds monitoring electrolyte i left message for his about the plan Subjective Constitutional: Reports: no symptoms HEENT: Reports: no symptoms Genitourinary: Reports: no symptoms Neurologic/Psychiatric: Reports: no symptoms Subjective had dialysis yesterday mid line came out by accident pt now is norco his pain is under controlled Objective Objective Last 24 Hour Vital Signs Date Time Temp Pulse Resp B/P Pulse Ox O2 Delivery O2 Flow Rate FiO2 05/24/16 04:05 98.8 86 20 155/52 97 Room Air 05/24/16 04:00 90 05/24/16 00:10 98.2 78 21 168/49 95 Room Air 05/24/16 00:00 73 05/23/16 22:02 156/73 05/23/16 20:00 84 05/23/16 20:00 96.1 89 19 104/74 98 Room Air 05/23/16 16:00 98 05/23/16 16:00 97.3 95 20 164/50 100 Room Air 05/23/16 15:16 Room Air 05/23/16 10:50 Room Air Intake and Output 05/23/16 05/24/16 19:00 07:00 Output Total 2300 ml Balance -2300 ml Output Hemodialysis UF 2300 ml Laboratory Tests 05/23/16 12:30: Calcium (Send out) [Pending], Phosphorus Level 9.4H, Iron Level 73, Total Iron Binding Capacity 198L, Percent Iron Saturation 37, Unsaturated Iron Binding 125 , Parathyroid Hormone (Intact) [Pending] Height (Feet): 5 Height (Inches): 8.00 Weight (Pounds): 180 Objective HEAD AND NECK: No JVP. No LAD. No thyromegaly. Extraocular movements are intact. Pupils are reactive to light and accommodation. LUNGS: Clear to auscultation. CARDIAC: Regular rate and rhythm. S1 and S2. No murmur. No rub. ABDOMEN: Soft, nontender, and nondistended. EXTREMITIES: Bilateral lower extremity is in the dressing for the wound and the dressing was recently changed, so I did not recheck the wound at this point. The patient is status post right second toe amputation. The wound at this point seems to be clean without any oozing or any other problem. He has right foot heel ulceration, which is not open and he does not have any discharges. Has a decubitus ulcer in the sacrum area, which is mostly excoriation and there is no evidence of discharge. LB SON May 24, 2016 08:39
[2016-05-24] MEDS: Docusate 100mg cap ORAL SCH ×2 (09:00→19:21)
[2016-05-24] MEDS: Lanthanum 1000mg tab ORAL SCH ×3 (09:00→19:21)
[2016-05-24] MEDS: Minoxidil 2.5mg tab ORAL SCH ×2 (09:00→22:21)
[2016-05-24] MEDS: VIRACEPT ORAL SCH ×2 (09:00→19:21)
[2016-05-24 10:07] LABS: BASOPHILS % (AUTO) 1.4 % (0.0-2.0); EOSINOPHILS % (AUTO) 7.5 % (0.0-3.0); LYMPHOCYTES % (AUTO) 42.9 % (20.0-45.0); MEAN CORPUSCULAR HEMOGLOBIN 29.2 PG (27.0-31.0); MEAN CORPUSCULAR HGB CONC 30.6 G/DL (32.0-36.0); MEAN CORPUSCULAR VOLUME 96 FL (80-99); MEAN PLATELET VOLUME 7.6 FL (6.5-10.1); MONOCYTES % (AUTO) 12.1 % (1.0-10.0); NEUTROPHILS % (AUTO) 36.1 % (45.0-75.0); PLATELET COUNT 221 K/UL (150-450); RED BLOOD COUNT 2.79 M/UL (4.70-6.10); RED CELL DISTRIBUTION WIDTH 15.2 % (11.6-14.8); WHITE BLOOD COUNT 3.6 K/UL (4.8-10.8)
[2016-05-24 10:32] LABS: CREATININE 7.9 mg/dL (0.7-1.2); GLOMERULAR FILTRATION RATE 8.5 mL/min (>60)
[2016-05-24 12:00] VITALS: BP 118/48
[2016-05-24 13:15] LABS: PTH INTACT 618 pg/mL (15-65)
--- NOTE | 2016-05-24 15:30 | General Progress Note ---
Assessment/Plan Problem List: (1) PVD (peripheral vascular disease) ICD Codes: I73.9 - Peripheral vascular disease, unspecified SNOMED: 658812803 (2) HTN (hypertension) ICD Codes: I10 - Essential (primary) hypertension SNOMED: 33879313 (3) Diabetes ICD Codes: E11.9 - Type 2 diabetes mellitus without complications SNOMED: 89231039 (4) ESRD (end stage renal disease) ICD Codes: N18.6 - End stage renal disease SNOMED: 23259333 (5) Anemia ICD Codes: D64.9 - Anemia, unspecified SNOMED: 106355256 Status: stable, progressing, tolerating diet Assessment/Plan ot pt diet wound care abx pod f/u dialysis cbc bmp am Subjective Constitutional: Reports: weakness Allergies: Coded Allergies: HEPARIN (Verified Allergy, Severe, low platelets, 06/11/14) SULFA (SULFONAMIDE ANTIBIOTICS) (Verified Allergy, Severe, nephro toxic, ) ZOLPIDEM (Verified Allergy, Unknown, 05/03/16) MEROPENEM (Verified Adverse Reaction, Intermediate, 04/01/16) Nausea and vomiting Uncoded Allergies: pork products (Allergy, Severe, rashes, 06/11/14) All Systems: reviewed and negative except above Subjective calm in bed sleepy Objective Last 24 Hour Vital Signs Date Time Temp Pulse Resp B/P Pulse Ox O2 Delivery O2 Flow Rate FiO2 05/24/16 13:11 82 05/24/16 12:30 Room Air 05/24/16 12:00 96.8 81 17 118/48 97 82 05/24/16 09:20 Room Air 05/24/16 08:00 89 05/24/16 04:05 98.8 86 20 155/52 97 Room Air 05/24/16 04:00 90 05/24/16 00:10 98.2 78 21 168/49 95 Room Air 05/24/16 00:00 73 05/23/16 22:02 156/73 05/23/16 20:00 84 05/23/16 20:00 96.1 89 19 104/74 98 Room Air 05/23/16 16:00 98 05/23/16 16:00 97.3 95 20 164/50 100 Room Air Intake and Output 05/23/16 05/24/16 19:00 07:00 Output Total 2300 ml Balance -2300 ml Output Hemodialysis UF 2300 ml Laboratory Tests 05/24/16 09:45: White Blood Count 3.6L, Red Blood Count 2.79L, Hemoglobin 8.2L, Hematocrit 26.7L , Mean Corpuscular Volume 96, Mean Corpuscular Hemoglobin 29.2, Mean Corpuscular Hemoglobin Concent 30.6L, Red Cell Distribution Width 15.2H, Platelet Count 221, Mean Platelet Volume 7.6, Neutrophils (%) (Auto) 36.1L, Lymphocytes (%) (Auto) 42.9, Monocytes (%) (Auto) 12.1H, Eosinophils (%) (Auto) 7.5H, Basophils (%) (Auto) 1.4, Sodium Level 141, Potassium Level 4.0, Chloride Level 92L, Carbon Dioxide Level 28, Anion Gap 21H, Blood Urea Nitrogen 61#H, Creatinine 7.9H, Estimat Glomerular Filtration Rate 8.5, Glucose Level 142H, Calcium Level 9.0 Height (Feet): 5 Height (Inches): 8.00 Weight (Pounds): 180 General Appearance: alert EENT: normal ENT inspection Neck: normal alignment Cardiovascular: normal peripheral pulses, normal rate, regular rhythm Respiratory/Chest: chest wall non-tender, lungs clear, normal breath sounds Abdomen: normal bowel sounds, non tender, soft Extremities: normal inspection Edema: no edema noted Arm (L), no edema noted Arm (R), no edema noted Leg (L), no edema noted Leg (R), no edema noted Pedal (L), no edema noted Pedal (R), no edema noted Generalized Neurologic: responsive, motor weakness Skin: normal pigmentation, warm/dry SNEHA PAIGE May 24, 2016 15:30
[2016-05-24 16:13] VITALS: BP 157/71
--- NOTE | 2016-05-24 18:47 | Cardiology Progress Note ---
Assessment/Plan Assessment/Plan The patient is seen and examined, full consult note is dictated. Objective Last 24 Hour Vital Signs Date Time Temp Pulse Resp B/P Pulse Ox O2 Delivery O2 Flow Rate FiO2 05/24/16 16:13 98.4 95 18 157/71 98 Room Air 05/24/16 13:11 82 05/24/16 12:30 Room Air 05/24/16 12:00 96.8 81 17 118/48 97 82 05/24/16 09:20 Room Air 05/24/16 08:00 89 05/24/16 04:05 98.8 86 20 155/52 97 Room Air 05/24/16 04:00 90 05/24/16 00:10 98.2 78 21 168/49 95 Room Air 05/24/16 00:00 73 05/23/16 22:02 156/73 05/23/16 20:00 84 05/23/16 20:00 96.1 89 19 104/74 98 Room Air Intake and Output 05/23/16 05/24/16 19:00 07:00 Output Total 2300 ml Balance -2300 ml Output Hemodialysis UF 2300 ml Laboratory Tests Test 05/24/16 09:45 White Blood Count 3.6 K/UL (4.8-10.8) L Red Blood Count 2.79 M/UL (4.70-6.10) L Hemoglobin 8.2 G/DL (14.2-18.0) L Hematocrit 26.7 % (42.0-52.0) L Mean Corpuscular Volume 96 FL (80-99) Mean Corpuscular Hemoglobin 29.2 PG (27.0-31.0) Mean Corpuscular Hemoglobin Concent 30.6 G/DL (32.0-36.0) L Red Cell Distribution Width 15.2 % (11.6-14.8) H Platelet Count 221 K/UL (150-450) Mean Platelet Volume 7.6 FL (6.5-10.1) Neutrophils (%) (Auto) 36.1 % (45.0-75.0) L Lymphocytes (%) (Auto) 42.9 % (20.0-45.0) Monocytes (%) (Auto) 12.1 % (1.0-10.0) H Eosinophils (%) (Auto) 7.5 % (0.0-3.0) H Basophils (%) (Auto) 1.4 % (0.0-2.0) Sodium Level 141 mEQ/L (135-145) Potassium Level 4.0 mEQ/L (3.4-4.9) Chloride Level 92 mEQ/L (98-107) L Carbon Dioxide Level 28 mEQ/L (20-30) Anion Gap 21 (5-15) H Blood Urea Nitrogen 61 mg/dL (7-23) #H Creatinine 7.9 mg/dL (0.7-1.2) H Estimat Glomerular Filtration Rate 8.5 mL/min (>60) Glucose Level 142 mg/dL (74-106) H Calcium Level 9.0 mg/dL (8.6-10.2) Microbiology Date/Time Source Procedure Growth Status 05/22/16 16:00 Nasal Nares MRSA Culture - Final NO METHICILLIN RESISTANT STAPH AUREUS... Complete 05/22/16 16:00 Rectum VRE Culture - Final Enterococcus Faecium - Vre Complete CLIFTON ISLAS May 24, 2016 18:47
[2016-05-24 20:00] VITALS: BP 145/51
--- NOTE | 2016-05-24 20:02 | Infectious Diseases Prog Note ---
Assessment/Plan Assessment/Plan ASSESSMENT AND PLAN: 1. esbl e.coli/likely polymicrobial left foot wound infection with osteomyelitis and right foot 2nd toe osteo/wound - s/p debridement of left foot , left leg revascularization and amputation right foot 2nd toe - zosyn and vancomycin for another 9 days for total of 6-8 weeks abx tx ( would have had at least 6 weeks) for left foot osteo - would consider right foot 2nd amputation as definitive treatment for osteo - watch labs and sed rate - most recent wound culture of left foot and right food 2nd toe at [facility] were negative - patient with peripheral iv access only - wound vac left foot - wounds stable - podiatry/surgery f/u 2. Wound care per podiatry and surgery 3. End-stage renal disease on hemodialysis, treatment per Renal. 4. Diabetes. 5. Hypertension. 6. Blood sugar and blood pressure control per primary. 7. Human immunodeficiency virus 8. Antiviral therapy. 9. continue HIV anti-retroviral therapy, f/u with primary hiv md 10. Anemia. 11. Peripheral vascular disease. 12. Gastrointestinal disease. 13. Fistula. 14. Neurologic disease, VAD. 15. Transient ischemic attack. 16. Weakness. 17. Seizures. 18. Left ventricular hypertrophy. 19. Atrial septal defect. 20. Coagulopathy, hematological disorder. 21. Past medical history as noted. 22. Allergies to sulfa, pork and heparin, -sd 23. Case was discussed with the patient 24. wound care per protocol 25. Case was discussed with RN. 26. Notes and records were reviewed. 27. MAR was noted. 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 d/w Subjective Constitutional: Reports: fatigue, Denies: chills, fever HEENT: Denies: congestion Respiratory: Denies: shortness of breath Cardiovascular: Denies: chest pain Gastrointestinal/Abdominal: Denies: diarrhea, nausea, vomiting Genitourinary: Reports: other - + hd Neurologic: Denies: headache Psychiatric: Denies: depression Skin: Denies: rash Hematologic: Denies: bleeding Musculoskeletal: Denies: pain Allergies: Coded Allergies: HEPARIN (Verified Allergy, Severe, low platelets, 06/11/14) SULFA (SULFONAMIDE ANTIBIOTICS) (Verified Allergy, Severe, nephro toxic, ) ZOLPIDEM (Verified Allergy, Unknown, 05/03/16) MEROPENEM (Verified Adverse Reaction, Intermediate, 04/01/16) Nausea and vomiting Uncoded Allergies: pork products (Allergy, Severe, rashes, 06/11/14) Objective Vital Signs Last 24 Hour Vital Signs Date Time Temp Pulse Resp B/P Pulse Ox O2 Delivery O2 Flow Rate FiO2 05/24/16 16:13 98.4 95 18 157/71 98 Room Air 05/24/16 13:11 82 05/24/16 12:30 Room Air 05/24/16 12:00 96.8 81 17 118/48 97 82 05/24/16 09:20 Room Air 05/24/16 08:00 89 05/24/16 04:05 98.8 86 20 155/52 97 Room Air 05/24/16 04:00 90 05/24/16 00:10 98.2 78 21 168/49 95 Room Air 05/24/16 00:00 73 05/23/16 22:02 156/73 05/23/16 20:00 84 05/23/16 20:00 96.1 89 19 104/74 98 Room Air Height (Feet): 5 Height (Inches): 8.00 Weight (Pounds): 180 General Appearance: no acute distress HEENT: normocephalic, atraumatic, anicteric, mucous membranes moist, PERRL, EOMI, pharynx normal, supple, no JVD Respiratory/Chest: lungs clear, normal breath sounds, no respiratory distress, no accessory muscle use Cardiovascular: normal rate, regular rhythm, no gallop/murmur, no JVD Abdomen: normal bowel sounds, soft, non tender, no organomegaly, non distended Genitourinary: other - no agarwal Extremities: other - wounds covered Skin: no rash Neurologic/Psychiatric: 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 Complete 05/22/16 16:00 Rectum VRE Culture - Final Enterococcus Faecium - Vre Complete Laboratory Tests Test 05/24/16 09:45 White Blood Count 3.6 K/UL (4.8-10.8) L Red Blood Count 2.79 M/UL (4.70-6.10) L Hemoglobin 8.2 G/DL (14.2-18.0) L Hematocrit 26.7 % (42.0-52.0) L Mean Corpuscular Volume 96 FL (80-99) Mean Corpuscular Hemoglobin 29.2 PG (27.0-31.0) Mean Corpuscular Hemoglobin Concent 30.6 G/DL (32.0-36.0) L Red Cell Distribution Width 15.2 % (11.6-14.8) H Platelet Count 221 K/UL (150-450) Mean Platelet Volume 7.6 FL (6.5-10.1) Neutrophils (%) (Auto) 36.1 % (45.0-75.0) L Lymphocytes (%) (Auto) 42.9 % (20.0-45.0) Monocytes (%) (Auto) 12.1 % (1.0-10.0) H Eosinophils (%) (Auto) 7.5 % (0.0-3.0) H Basophils (%) (Auto) 1.4 % (0.0-2.0) Sodium Level 141 mEQ/L (135-145) Potassium Level 4.0 mEQ/L (3.4-4.9) Chloride Level 92 mEQ/L (98-107) L Carbon Dioxide Level 28 mEQ/L (20-30) Anion Gap 21 (5-15) H Blood Urea Nitrogen 61 mg/dL (7-23) #H Creatinine 7.9 mg/dL (0.7-1.2) H Estimat Glomerular Filtration Rate 8.5 mL/min (>60) Glucose Level 142 mg/dL (74-106) H Calcium Level 9.0 mg/dL (8.6-10.2) Current Medications Medications (Trade) Dose Ordered Sig/Zohaib Route PRN Reason Start Time Stop Time Status Last Admin Dose Admin Acetaminophen (Tylenol) 650 mg Q4H PRN ORAL Prn Headache/Temp > 101 05/22/16 20:45 06/21/16 20:44 Acetaminophen/ Hydrocodone Bitart ([place] 5/325) 1 tab Q8H PRN ORAL For Pain 05/22/16 20:45 05/29/16 20:44 05/24/16 02:48 Clonidine HCl (Catapres) 0.1 mg Q8H PRN ORAL For High Blood Pressure 05/22/16 20:45 06/21/16 20:44 Clopidogrel Bisulfate (Plavix) 75 mg DAILY ORAL 05/23/16 09:00 06/22/16 08:59 05/23/16 09:18 Dextrose (Dextrose 50%) STAT PRN IV Hypoglycemia 05/22/16 20:45 06/21/16 20:44 Diphenhydramine HCl (Benadryl) 50 mg Q6H PRN IVP Itching/Pruritis 05/22/16 20:45 06/21/16 20:44 Docusate Sodium (Colace) 100 mg TWICE A DAY ORAL 05/23/16 09:00 06/22/16 08:59 05/24/16 19:21 Epoetin Jeremiah (Procrit (for ESRD on dialysis)) 10,000 units SAT-SAT-SAT SUBQ 05/23/16 21:00 06/22/16 20:59 05/23/16 22:03 Ferrous Sulfate (Feosol) 325 mg THREE TIMES A DAY ORAL 05/23/16 09:00 06/22/16 08:59 05/24/16 19:21 Insulin Aspart (NovoLOG) BEFORE MEALS AND HS SUBQ 05/22/16 21:00 06/21/16 20:59 Lanthanum Carbonate (Fosrenol) 1,500 mg TID ORAL 05/23/16 09:00 06/22/16 08:59 05/24/16 19:21 Lorazepam (Ativan) 1 mg Q6H PRN ORAL For Anxiety 05/22/16 20:45 05/29/16 20:44 Metoprolol Succinate (Toprol XL) 25 mg DAILY ORAL 05/23/16 09:00 06/22/16 08:59 Minoxidil (Loniten) 2.5 mg Q12HR ORAL 05/22/16 21:00 06/21/16 20:59 05/23/16 22:02 Nateglinide (Starlix) 120 mg THREE TIMES A DAY ORAL 05/23/16 09:00 06/22/16 08:59 05/24/16 19:21 Nifedipine (Procardia XL) 60 mg DAILY ORAL 05/23/16 09:00 06/22/16 08:59 Ondansetron HCl (Zofran) 4 mg Q6H PRN IV Nausea & Vomiting 05/22/16 20:45 06/21/16 20:44 Patient Own Medication (Patient's Own Med) 1 ea Sa@1630 ORAL 05/26/16 16:30 06/25/16 16:29 UNV Patient Own Medication (Patient's Own Med) 1 ea WeSa@0900 ORAL 05/23/16 11:30 06/22/16 11:29 Patient Own Medication (Patient's Own Med) 2 ea BID ORAL 05/23/16 18:00 06/22/16 17:59 05/24/16 19:21 Piperacillin Sod/ Tazobactam Sod/ Dextrose (Zosyn/D5W) 55 ml @ 110 mls/hr Q8HR IVPB 05/23/16 22:00 05/28/16 21:59 05/24/16 12:09 Polyethylene Glycol (Miralax) 17 gm DAILY PRN ORAL Constipation 05/22/16 20:45 06/21/16 20:44 Ranitidine HCl (Zantac) 150 mg DAILY ORAL 05/23/16 09:00 06/22/16 08:59 05/23/16 09:18 Vancomycin HCl 1 ea 1 ea DAILY PRN MISC Per rx protocol 05/23/16 16:00 06/22/16 15:59 INOCENCIA DOS SANTOS May 24, 2016 20:02
--- NOTE | 2016-05-24 23:57 | Consultation ---
DATE OF CONSULTATION: 05/24/2016 CARDIOLOGY CONSULTATION: REFERRING PHYSICIANS: Louis Barahona D.O. and Janis Olivo M.D. REASON FOR CONSULTATION: Management of heart murmur in the patient with history of peripheral vascular disease. HISTORY OF PRESENT ILLNESS: The patient is a very unfortunate 60-year-old gentleman, known to me from previous hospitalization, who presented to the hospital for receiving hemodialysis. Apparently, he missed dialysis for about three days. The patient on arrival to the hospital was found to have potassium of 6.2. Therefore, Cardiology consultation was made at request of Dr. Barahona and Dr. Olivo for evaluation and management of possible cardiac arrhythmia. The patient was admitted to telemetry unit. Currently, denying any chest pain or shortness of breath. He is quite nonambulatory, cannot bear weight on his feet following recent amputation of middle toe of the right foot. His cardiac history is also significant for history of severe aortic regurgitation, which is well compensated. His left ventricular ejection fraction is within normal limits. There is also possible history of bacterial endocarditis in the past. PAST MEDICAL HISTORY: End-stage renal disease, history of renal osteodystrophy, history of human immunodeficiency syndrome, history of hypertension, history of cerebrovascular disease status post multiple revascularization of lower extremity status post amputation of the left foot status post middle toe of right foot amputation recently done. History of sacral decubitus stage II. History of extended-spectrum beta-lactamase E. coli of the wound. History of chronic severe aortic regurgitation. PAST SURGICAL HISTORY: AV fistula placement, amputation of the middle toe of the right foot and transmetatarsal left foot, and history of angioplasty and stent placement in the lower extremity arterial system. MEDICATIONS: The whole list of medication was reviewed and reconciled. ALLERGIES: To Ambien and heparin. SOCIAL HISTORY: There is no current history of tobacco, alcohol, or illicit drug use. REVIEW OF SYSTEMS: HEENT: Denies any headache, diplopia, or blurred vision. Constitutional: Complains of generalized weakness. No fever, chills, or night sweats. Cardiovascular: Denies any chest pain, shortness of breath, PND, orthopnea, or leg swelling. Pulmonary: Denies any cough, hemoptysis, or wheezing. Gastrointestinal: Denies any nausea, vomiting, diarrhea, constipation, abdominal pain, or GI bleed. Genitourinary: On hemodialysis two days a week. Neurology: Denies any motor dysfunction, sensory deficit, or altered speech. Musculoskeletal: He has had multiple procedure for lower extremity arterial system and history of amputation of both feet. PHYSICAL EXAMINATION: VITAL SIGNS: Blood pressure was 140/51, pulse , respiration 18, and temperature 98.0 degrees Fahrenheit. GENERAL: The patient is a very unfortunate 60-year-old gentleman, in no apparent respiratory distress. Comfortable. HEENT: Atraumatic and normocephalic. Anicteric. Pupils are equal, round, and reactive to light and accommodation. There is conjunctival pallor. NECK: JVP less than 5 cm. No carotid bruit. Carotid upstroke is 2+ bilaterally. CARDIOVASCULAR: Normal S1, S2. Regular rate and rhythm. No murmurs, gallops, or rubs. PMI is at the fourth intercostal space in the midclavicular line. LUNGS: Clear to auscultation and percussion. ABDOMEN: Soft, nontender, nondistended. No hepatosplenomegaly. Positive bowel sounds. EXTREMITIES: There is a dressing over feet status post amputation right second toe. Also, there is presence of a decubitus ulceration in the sacral area. LABORATORY FINDINGS: WBC is 5.0, hemoglobin , and hematocrit of 28, and platelet count 238,000. Sodium 138, potassium 4.9, chloride 91, bicarbonate 20, BUN 100, and creatinine 12.3. Calcium is 9.2. A 12-lead electrogram shows sinus rhythm at a rate of 64 with left axis deviation, left ventricular hypertrophy, atrial septal defect, prolonged QT interval. No ischemic changes. Chest x-ray shows cardiomegaly, calcified aortic knob, and interstitial edema. ASSESSMENT AND PLAN: The patient is an unfortunate 60-year-old gentleman, seen in Cardiology consultation at request of Dr. Olivo and Dr. Barahona, 1. Chronic severe aortic regurgitation, well-compensated. Activity level is very minimal. The patient is asymptomatic at rest. No further cardiac intervention is required in regards with chronic severe aortic regurgitation. Chest x-ray shows no evidence of overt pulmonary edema despite the fact that the patient has missed three days of hemodialysis. We will continue with the current regimen. 2. Normal left ventricular systolic function. Recent evaluation by 2D echocardiography. 3. History of hypertension. The blood pressure is slightly elevated. 4. History of end-stage renal disease. 5. History of diabetes mellitus. I would like the patient to be on combination of aspirin and statin. 6. History of peripheral vascular disease status post multiple revascularization of lower extremity arterial system, history of amputation of both feet. I would like to thank, Dr. Olivo, for courtesy of this consultation. Saturnino Reed M.D. DR: Tasia JOB#: [id number] CC:
[2016-05-25] VITALS: BP 126/36
[2016-05-25] MEDS: Norco 5mg/325mg tab ORAL PRN (00:21)
[2016-05-25] MEDS ORDERED: DiphenhydrAMINE 50mg/ml Inj IVP PRN (02:45)
[2016-05-25] MEDS ORDERED: LORazepam 1mg tab ORAL PRN (02:45)
[2016-05-25 04:00] VITALS: BP 170/87
[2016-05-25] MEDS ORDERED: Norco 5mg/325mg tab ORAL PRN (04:45)
[2016-05-25] MEDS ORDERED: Acetaminophen 650mg/20.3ml ORAL PRN (04:45)
[2016-05-25] MEDS: Piperacillin/Tazobactam 2.25 GM in D5W 55 ML IVPB SCH ×3 (05:39→14:49)
[2016-05-25] MEDS: NovoLOG Insulin Flexpen SUBQ SCH ×3 (06:30→16:30)
[2016-05-25 08:04] VITALS: BP 172/78
[2016-05-25] MEDS ORDERED: Miralax 17gm pkt ORAL PRN (09:00)
[2016-05-25] MEDS ORDERED: Minoxidil 2.5mg tab ORAL SCH ×2 (09:00→21:00)
[2016-05-25] MEDS: VIRACEPT ORAL SCH ×2 (09:00→18:00)
[2016-05-25] MEDS: Docusate 100mg cap ORAL SCH ×2 (09:01→17:47)
[2016-05-25] MEDS: Lanthanum 1000mg tab ORAL SCH ×3 (09:09→18:00)
[2016-05-25 10:55] LABS: BASOPHILS % (AUTO) 1.6 % (0.0-2.0); LYMPHOCYTES % (AUTO) 40.1 % (20.0-45.0); MEAN CORPUSCULAR HEMOGLOBIN 29.8 PG (27.0-31.0); MEAN CORPUSCULAR HGB CONC 30.6 G/DL (32.0-36.0); MEAN CORPUSCULAR VOLUME 97 FL (80-99); MEAN PLATELET VOLUME 7.9 FL (6.5-10.1); MONOCYTES % (AUTO) 13.5 % (1.0-10.0); NEUTROPHILS % (AUTO) 36.7 % (45.0-75.0); PLATELET COUNT 207 K/UL (150-450); RED CELL DISTRIBUTION WIDTH 15.4 % (11.6-14.8); WHITE BLOOD COUNT 4.3 K/UL (4.8-10.8)
[2016-05-25 11:17] LABS: CALCIUM 9.6 mg/dL (8.6-10.2); CREATININE 7.5 mg/dL (0.7-1.2); POTASSIUM 4.1 mEQ/L (3.4-4.9)
[2016-05-25 11:50] VITALS: BP 130/71
--- NOTE | 2016-05-25 11:57 | Podiatric Progress Note ---
Assessment/Plan Patient Lloyd Grigsby is a 60 year old male who was admitted on May 22, 2016 at 16:38 with Problems: Assessment/Plan A/ 1) S/P right 2nd toe amputation 05/15/2016 2) Osteomyelitis left foot 3) Non-pressure ulcer left foot to level of muscle 4) DM 5) PVD 6) ESRD 7) HIV P/ 1) Dressings right foot changed. Suture removal 3 wks from surgery date 2) Cont VAC to left foot with MWF dressing changes 3) D/W plastics for STSG left foot 4) D/W . Looking for HBOT at [facility]. Will order more VAC supplies for them. Subjective Allergies: Coded Allergies: HEPARIN (Verified Allergy, Severe, low platelets, 06/11/14) SULFA (SULFONAMIDE ANTIBIOTICS) (Verified Allergy, Severe, nephro toxic, ) ZOLPIDEM (Verified Allergy, Unknown, 05/03/16) MEROPENEM (Verified Adverse Reaction, Intermediate, 04/01/16) Nausea and vomiting Uncoded Allergies: pork products (Allergy, Severe, rashes, 06/11/14) Subjective Patient is comfortable, states he needs supplies for his wound VAC dressings at home Objective Exam Last 24 Hour Vital Signs Date Time Temp Pulse Resp B/P Pulse Ox O2 Delivery O2 Flow Rate FiO2 05/25/16 11:50 97.7 81 21 130/71 99 05/25/16 09:02 75 172/78 05/25/16 09:02 75 172/78 05/25/16 09:01 172/78 05/25/16 08:04 97.7 75 20 172/78 99 Room Air 05/25/16 04:00 96.8 74 20 170/87 100 Room Air 05/25/16 00:00 70 05/25/16 00:00 97.0 70 16 126/36 98 Room Air 05/24/16 22:21 145/51 05/24/16 20:00 98.5 72 18 145/51 97 Room Air 05/24/16 20:00 74 05/24/16 16:13 98.4 95 18 157/71 98 Room Air 05/24/16 16:00 83 05/24/16 13:11 82 05/24/16 12:30 Room Air 05/24/16 12:00 96.8 81 17 118/48 97 82 Laboratory Tests Test 05/25/16 09:50 White Blood Count 4.3 K/UL (4.8-10.8) L Red Blood Count 3.00 M/UL (4.70-6.10) L Hemoglobin 8.9 G/DL (14.2-18.0) L Hematocrit 29.1 % (42.0-52.0) L Mean Corpuscular Volume 97 FL (80-99) Mean Corpuscular Hemoglobin 29.8 PG (27.0-31.0) Mean Corpuscular Hemoglobin Concent 30.6 G/DL (32.0-36.0) L Red Cell Distribution Width 15.4 % (11.6-14.8) H Platelet Count 207 K/UL (150-450) Mean Platelet Volume 7.9 FL (6.5-10.1) Neutrophils (%) (Auto) 36.7 % (45.0-75.0) L Lymphocytes (%) (Auto) 40.1 % (20.0-45.0) Monocytes (%) (Auto) 13.5 % (1.0-10.0) H Eosinophils (%) (Auto) 8.0 % (0.0-3.0) H Basophils (%) (Auto) 1.6 % (0.0-2.0) Sodium Level 144 mEQ/L (135-145) Potassium Level 4.1 mEQ/L (3.4-4.9) Chloride Level 95 mEQ/L (98-107) L Carbon Dioxide Level 32 mEQ/L (20-30) H Anion Gap 17 (5-15) H Blood Urea Nitrogen 53 mg/dL (7-23) H Creatinine 7.5 mg/dL (0.7-1.2) H Estimat Glomerular Filtration Rate 9.0 mL/min (>60) Glucose Level 145 mg/dL (74-106) H Calcium Level 9.6 mg/dL (8.6-10.2) Pro-B-Type Natriuretic Peptide 91938 pg/mL (0-125) H Microbiology Date/Time Source Procedure Growth Status 05/22/16 16:00 Nasal Nares MRSA Culture - Final NO METHICILLIN RESISTANT STAPH AUREUS... Complete 05/22/16 16:00 Rectum VRE Culture - Final Enterococcus Faecium - Vre Complete Dermatological Wound Assessment : Exudate Amount: None Dermatological Narrative left foot VAC placed. photo documentation shows granular wound bed, no malodor Right foot 2nd toe stump site, well coapted. Sutures are C/D/I. Skin edges are viable. Victor Hugo Blackburn DPM May 25, 2016 11:57
--- NOTE | 2016-05-25 13:29 | Infectious Diseases Prog Note ---
Assessment/Plan Assessment/Plan ASSESSMENT AND PLAN: 1. esbl e.coli/likely polymicrobial left foot wound infection with osteomyelitis and right foot 2nd toe osteo/wound - s/p debridement of left foot , left leg revascularization and amputation right foot 2nd toe - zosyn and vancomycin for another 8 days for total of 6-8 weeks abx tx ( would have had at least 6 weeks) for left foot osteo - would consider right foot 2nd amputation as definitive treatment for osteo - watch labs and sed rate - most recent wound culture of left foot and right food 2nd toe at [facility] were negative - patient with peripheral iv access only - wound vac left foot - wounds stable - podiatry/surgery f/u 2. Wound care per podiatry and surgery 3. End-stage renal disease on hemodialysis, treatment per Renal. 4. Diabetes. 5. Hypertension. 6. Blood sugar and blood pressure control per primary. 7. Human immunodeficiency virus 8. Antiviral therapy. 9. continue HIV anti-retroviral therapy, f/u with primary hiv md 10. Anemia. 11. Peripheral vascular disease. 12. Gastrointestinal disease. 13. Fistula. 14. Neurologic disease, VAD. 15. Transient ischemic attack. 16. Weakness. 17. Seizures. 18. Left ventricular hypertrophy. 19. Atrial septal defect. 20. Coagulopathy, hematological disorder. 21. Past medical history as noted. 22. Allergies to sulfa, pork and heparin, -nj 23. Case was discussed with the patient 24. wound care per protocol 25. Case was discussed with RN. 26. Notes and records were reviewed. 27. MAR was noted. 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 d/w and Dr. Olivo Subjective Constitutional: Reports: fatigue HEENT: Denies: congestion Respiratory: Denies: shortness of breath Cardiovascular: Denies: chest pain Gastrointestinal/Abdominal: Denies: nausea Psychiatric: Denies: depression Skin: Denies: rash Hematologic: Denies: bleeding Musculoskeletal: Denies: pain Allergies: Coded Allergies: HEPARIN (Verified Allergy, Severe, low platelets, 06/11/14) SULFA (SULFONAMIDE ANTIBIOTICS) (Verified Allergy, Severe, nephro toxic, ) ZOLPIDEM (Verified Allergy, Unknown, 05/03/16) MEROPENEM (Verified Adverse Reaction, Intermediate, 04/01/16) Nausea and vomiting Uncoded Allergies: pork products (Allergy, Severe, rashes, 06/11/14) Objective Vital Signs Last 24 Hour Vital Signs Date Time Temp Pulse Resp B/P Pulse Ox O2 Delivery O2 Flow Rate FiO2 05/25/16 11:50 97.7 81 21 130/71 99 05/25/16 09:02 75 172/78 05/25/16 09:02 75 172/78 05/25/16 09:01 172/78 05/25/16 08:04 97.7 75 20 172/78 99 Room Air 05/25/16 04:00 96.8 74 20 170/87 100 Room Air 05/25/16 00:00 70 05/25/16 00:00 97.0 70 16 126/36 98 Room Air 05/24/16 22:21 145/51 05/24/16 20:00 98.5 72 18 145/51 97 Room Air 05/24/16 20:00 74 05/24/16 16:13 98.4 95 18 157/71 98 Room Air 05/24/16 16:00 83 Height (Feet): 5 Height (Inches): 8.00 Weight (Pounds): 180 General Appearance: no acute distress HEENT: normocephalic, atraumatic, anicteric, mucous membranes moist, PERRL, EOMI, pharynx normal, supple, no JVD Respiratory/Chest: lungs clear, normal breath sounds, no respiratory distress Cardiovascular: normal rate, regular rhythm, no gallop/murmur, no JVD Abdomen: normal bowel sounds, soft, non tender, no organomegaly, non distended Genitourinary: other - no agarwal Extremities: other - feet covered Skin: no rash, ulcers - wounds covered Neurologic/Psychiatric: risk control analyst II-XII grossly normal, alert, oriented x 3, responsive Lymphatic: no neck adenopathy Musculoskeletal: no effusion Objective chest x-ray - cm, cad Microbiology Date/Time Source Procedure Growth Status 05/22/16 16:00 Nasal Nares MRSA Culture - Final NO METHICILLIN RESISTANT STAPH AUREUS... Complete 05/22/16 16:00 Rectum VRE Culture - Final Enterococcus Faecium - Vre Complete Laboratory Tests Test 05/25/16 09:50 White Blood Count 4.3 K/UL (4.8-10.8) L Red Blood Count 3.00 M/UL (4.70-6.10) L Hemoglobin 8.9 G/DL (14.2-18.0) L Hematocrit 29.1 % (42.0-52.0) L Mean Corpuscular Volume 97 FL (80-99) Mean Corpuscular Hemoglobin 29.8 PG (27.0-31.0) Mean Corpuscular Hemoglobin Concent 30.6 G/DL (32.0-36.0) L Red Cell Distribution Width 15.4 % (11.6-14.8) H Platelet Count 207 K/UL (150-450) Mean Platelet Volume 7.9 FL (6.5-10.1) Neutrophils (%) (Auto) 36.7 % (45.0-75.0) L Lymphocytes (%) (Auto) 40.1 % (20.0-45.0) Monocytes (%) (Auto) 13.5 % (1.0-10.0) H Eosinophils (%) (Auto) 8.0 % (0.0-3.0) H Basophils (%) (Auto) 1.6 % (0.0-2.0) Sodium Level 144 mEQ/L (135-145) Potassium Level 4.1 mEQ/L (3.4-4.9) Chloride Level 95 mEQ/L (98-107) L Carbon Dioxide Level 32 mEQ/L (20-30) H Anion Gap 17 (5-15) H Blood Urea Nitrogen 53 mg/dL (7-23) H Creatinine 7.5 mg/dL (0.7-1.2) H Estimat Glomerular Filtration Rate 9.0 mL/min (>60) Glucose Level 145 mg/dL (74-106) H Calcium Level 9.6 mg/dL (8.6-10.2) Pro-B-Type Natriuretic Peptide 62475 pg/mL (0-125) H Current Medications Medications (Trade) Dose Ordered Sig/Zohaib Route PRN Reason Start Time Stop Time Status Last Admin Dose Admin Acetaminophen (Tylenol) 650 mg Q4H PRN ORAL Prn Headache/Temp > 101 05/25/16 04:45 06/24/16 04:44 Acetaminophen/ Hydrocodone Bitart (Champion 5/325) 1 tab Q8H PRN ORAL For Pain 05/25/16 04:45 06/01/16 04:44 Clonidine HCl (Catapres) 0.1 mg Q8H PRN ORAL For High Blood Pressure 05/25/16 04:45 06/24/16 04:44 Clopidogrel Bisulfate (Plavix) 75 mg DAILY ORAL 05/25/16 09:00 06/24/16 08:59 05/25/16 09:01 Dextrose (Dextrose 50%) STAT PRN IV Hypoglycemia 05/25/16 20:45 06/24/16 20:44 Diphenhydramine HCl (Benadryl) 50 mg Q6H PRN IVP Itching/Pruritis 05/25/16 02:45 06/24/16 02:44 Docusate Sodium (Colace) 100 mg TWICE A DAY ORAL 05/25/16 09:00 06/24/16 08:59 05/25/16 09:01 Epoetin Jeremiah (Procrit (for ESRD on dialysis)) 10,000 units SAT-SAT-SAT SUBQ 05/25/16 21:00 06/24/16 20:59 Ferrous Sulfate (Feosol) 325 mg THREE TIMES A DAY ORAL 05/25/16 09:00 06/24/16 08:59 05/25/16 09:01 Insulin Aspart (NovoLOG) BEFORE MEALS AND HS SUBQ 05/25/16 06:30 06/24/16 06:29 Lanthanum Carbonate (Fosrenol) 1,500 mg TID ORAL 05/25/16 09:00 06/24/16 08:59 05/25/16 09:09 Lorazepam (Ativan) 1 mg Q6H PRN ORAL For Anxiety 05/25/16 02:45 06/01/16 02:44 05/25/16 09:02 Metoprolol Succinate (Toprol XL) 25 mg DAILY ORAL 05/25/16 09:00 06/24/16 08:59 05/25/16 09:02 Minoxidil (Loniten) 2.5 mg Q12HR ORAL 05/25/16 09:00 06/24/16 08:59 05/25/16 09:01 Nateglinide (Starlix) 120 mg THREE TIMES A DAY ORAL 05/25/16 09:00 06/24/16 08:59 05/25/16 09:07 Nifedipine (Procardia XL) 60 mg DAILY ORAL 05/25/16 09:00 06/24/16 08:59 05/25/16 09:02 Ondansetron HCl (Zofran) 4 mg Q6H PRN IV Nausea & Vomiting 05/25/16 02:45 06/24/16 02:44 Patient Own Medication (Patient's Own Med) 1 ea Sa@1630 ORAL 05/26/16 16:30 06/25/16 16:29 Patient Own Medication (Patient's Own Med) 1 ea WeSa@0900 ORAL 05/26/16 09:00 06/25/16 08:59 Patient Own Medication (Patient's Own Med) 2 ea BID ORAL 05/25/16 09:00 06/24/16 08:59 Piperacillin Sod/ Tazobactam Sod/ Dextrose (Zosyn/D5W) 55 ml @ 110 mls/hr Q8HR IVPB 05/25/16 06:00 05/28/16 21:59 05/25/16 05:39 Polyethylene Glycol (Miralax) 17 gm DAILY PRN ORAL Constipation 05/25/16 09:00 06/24/16 08:59 Ranitidine HCl (Zantac) 150 mg DAILY ORAL 05/25/16 09:00 06/24/16 08:59 05/25/16 09:02 Vancomycin HCl (Vanco rx to dose) 1 ea DAILY PRN MISC Per rx protocol 05/25/16 09:00 06/24/16 08:59 INOCENCIA DOS SANTOS May 25, 2016 13:29
--- NOTE | 2016-05-25 13:43 | Nephrology Progress Note ---
Assessment/Plan Assessment 1. End-stage renal disease. 2. Anemia of chronic kidney disease. 3. Hyperkalemia. 4. Acidosis. 5. Noncompliant with the treatment and management for the patient. Plan plan to continue epogen dialysis today oral pain meds monitoring electrolyte i left message for his about the plan Subjective Constitutional: Reports: no symptoms HEENT: Reports: no symptoms Genitourinary: Reports: no symptoms Neurologic/Psychiatric: Reports: no symptoms Subjective had dialysis yesterday peripheral line was placed i try to call his many time in presence of nurse and case manger no respond discussed the case with ID consult agree for pt to be discharge with peripheral line and going to place a mid line on Saturday as out pt he has only one week of antibiotic left Objective Objective Last 24 Hour Vital Signs Date Time Temp Pulse Resp B/P Pulse Ox O2 Delivery O2 Flow Rate FiO2 05/25/16 11:50 97.7 81 21 130/71 99 05/25/16 09:02 75 172/78 05/25/16 09:02 75 172/78 05/25/16 09:01 172/78 05/25/16 08:04 97.7 75 20 172/78 99 Room Air 05/25/16 04:00 96.8 74 20 170/87 100 Room Air 05/25/16 00:00 70 05/25/16 00:00 97.0 70 16 126/36 98 Room Air 05/24/16 22:21 145/51 05/24/16 20:00 98.5 72 18 145/51 97 Room Air 05/24/16 20:00 74 05/24/16 16:13 98.4 95 18 157/71 98 Room Air 05/24/16 16:00 83 Intake and Output 05/24/16 05/25/16 19:00 07:00 Intake Total 685 ml Output Total 2470 ml 0 ml Balance -2470 ml 685 ml Intake Oral 520 ml IV Total 165 ml Output Urine Total 0 ml Hemodialysis UF 2470 ml Laboratory Tests 05/25/16 09:50: White Blood Count 4.3L, Red Blood Count 3.00L, Hemoglobin 8.9L, Hematocrit 29.1L , Mean Corpuscular Volume 97, Mean Corpuscular Hemoglobin 29.8, Mean Corpuscular Hemoglobin Concent 30.6L, Red Cell Distribution Width 15.4H, Platelet Count 207, Mean Platelet Volume 7.9, Neutrophils (%) (Auto) 36.7L, Lymphocytes (%) (Auto) 40.1, Monocytes (%) (Auto) 13.5H, Eosinophils (%) (Auto) 8.0H, Basophils (%) (Auto) 1.6, Sodium Level 144, Potassium Level 4.1, Chloride Level 95L, Carbon Dioxide Level 32H, Anion Gap 17H, Blood Urea Nitrogen 53H, Creatinine 7.5H, Estimat Glomerular Filtration Rate 9.0, Glucose Level 145H, Calcium Level 9.6, Pro-B-Type Natriuretic Peptide 58908D Height (Feet): 5 Height (Inches): 8.00 Weight (Pounds): 180 Objective HEAD AND NECK: No JVP. No LAD. No thyromegaly. Extraocular movements are intact. Pupils are reactive to light and accommodation. LUNGS: Clear to auscultation. CARDIAC: Regular rate and rhythm. S1 and S2. No murmur. No rub. ABDOMEN: Soft, nontender, and nondistended. EXTREMITIES: Bilateral lower extremity is in the dressing for the wound and the dressing was recently changed, so I did not recheck the wound at this point. The patient is status post right second toe amputation. The wound at this point seems to be clean without any oozing or any other problem. He has right foot heel ulceration, which is not open and he does not have any discharges. Has a decubitus ulcer in the sacrum area, which is mostly excoriation and there is no evidence of discharge. LB SON May 25, 2016 13:43
--- NOTE | 2016-05-25 15:00 | Pulmonology Progress Note ---
Assessment/Plan Problems: (1) COPD (chronic obstructive pulmonary disease) (2) ESRD (end stage renal disease) (3) Diabetes (4) CKD (chronic kidney disease) (5) Osteomyelitis (6) HIV disease (7) Vascular disease (8) HTN (hypertension) Assessment/Plan respiratory treatment titrate fio2 to sat of 92% Hd by nephrology pain management Subjective ROS Limited/Unobtainable: No Constitutional: Reports: no symptoms HEENT: Repors: no symptoms Respiratory: Reports: no symptoms Allergies: Coded Allergies: HEPARIN (Verified Allergy, Severe, low platelets, 06/11/14) SULFA (SULFONAMIDE ANTIBIOTICS) (Verified Allergy, Severe, nephro toxic, ) ZOLPIDEM (Verified Allergy, Unknown, 05/03/16) MEROPENEM (Verified Adverse Reaction, Intermediate, 04/01/16) Nausea and vomiting Uncoded Allergies: pork products (Allergy, Severe, rashes, 06/11/14) Objective Last 24 Hour Vital Signs Date Time Temp Pulse Resp B/P Pulse Ox O2 Delivery O2 Flow Rate FiO2 05/25/16 11:50 97.7 81 21 130/71 99 05/25/16 09:02 75 172/78 05/25/16 09:02 75 172/78 05/25/16 09:01 172/78 05/25/16 08:04 97.7 75 20 172/78 99 Room Air 05/25/16 04:00 96.8 74 20 170/87 100 Room Air 05/25/16 00:00 70 05/25/16 00:00 97.0 70 16 126/36 98 Room Air 05/24/16 22:21 145/51 05/24/16 20:00 98.5 72 18 145/51 97 Room Air 05/24/16 20:00 74 05/24/16 16:13 98.4 95 18 157/71 98 Room Air 05/24/16 16:00 83 Intake and Output 05/24/16 05/25/16 19:00 07:00 Intake Total 685 ml Output Total 2470 ml 0 ml Balance -2470 ml 685 ml Intake Oral 520 ml IV Total 165 ml Output Urine Total 0 ml Hemodialysis UF 2470 ml General Appearance: WD/WN HEENT: atraumatic, anicteric Respiratory/Chest: chest wall non-tender, normal breath sounds Cardiovascular: normal peripheral pulses, normal rate Abdomen: normal bowel sounds, soft, non tender Genitourinary: normal external genitalia Extremities: no cyanosis Skin: no lesions Neurologic/Psychiatric: executive cyber leader II-XII grossly normal, no motor/sensory deficits Microbiology Date/Time Source Procedure Growth Status 05/22/16 16:00 Nasal Nares MRSA Culture - Final NO METHICILLIN RESISTANT STAPH AUREUS... Complete 05/22/16 16:00 Rectum VRE Culture - Final Enterococcus Faecium - Vre Complete Laboratory Tests 05/25/16 09:50: White Blood Count 4.3L, Red Blood Count 3.00L, Hemoglobin 8.9L, Hematocrit 29.1L , Mean Corpuscular Volume 97, Mean Corpuscular Hemoglobin 29.8, Mean Corpuscular Hemoglobin Concent 30.6L, Red Cell Distribution Width 15.4H, Platelet Count 207, Mean Platelet Volume 7.9, Neutrophils (%) (Auto) 36.7L, Lymphocytes (%) (Auto) 40.1, Monocytes (%) (Auto) 13.5H, Eosinophils (%) (Auto) 8.0H, Basophils (%) (Auto) 1.6, Sodium Level 144, Potassium Level 4.1, Chloride Level 95L, Carbon Dioxide Level 32H, Anion Gap 17H, Blood Urea Nitrogen 53H, Creatinine 7.5H, Estimat Glomerular Filtration Rate 9.0, Glucose Level 145H, Calcium Level 9.6, Pro-B-Type Natriuretic Peptide 25177J Current Medications Medications (Trade) Dose Ordered Sig/Zohaib Route PRN Reason Start Time Stop Time Status Last Admin Dose Admin Acetaminophen (Tylenol) 650 mg Q4H PRN ORAL Prn Headache/Temp > 101 05/25/16 04:45 06/24/16 04:44 Acetaminophen/ Hydrocodone Bitart ([place] 5/325) 1 tab Q8H PRN ORAL For Pain 05/25/16 04:45 06/01/16 04:44 Clonidine HCl (Catapres) 0.1 mg Q8H PRN ORAL For High Blood Pressure 05/25/16 04:45 06/24/16 04:44 Clopidogrel Bisulfate (Plavix) 75 mg DAILY ORAL 05/25/16 09:00 06/24/16 08:59 05/25/16 09:01 Dextrose (Dextrose 50%) STAT PRN IV Hypoglycemia 05/25/16 20:45 06/24/16 20:44 Diphenhydramine HCl (Benadryl) 50 mg Q6H PRN IVP Itching/Pruritis 05/25/16 02:45 06/24/16 02:44 Docusate Sodium (Colace) 100 mg TWICE A DAY ORAL 05/25/16 09:00 06/24/16 08:59 05/25/16 09:01 Epoetin Jeremiah (Procrit (for ESRD on dialysis)) 10,000 units SAT-SAT-SAT SUBQ 05/25/16 21:00 06/24/16 20:59 Ferrous Sulfate (Feosol) 325 mg THREE TIMES A DAY ORAL 05/25/16 09:00 06/24/16 08:59 05/25/16 14:41 Insulin Aspart (NovoLOG) BEFORE MEALS AND HS SUBQ 05/25/16 06:30 06/24/16 06:29 Lanthanum Carbonate (Fosrenol) 1,500 mg TID ORAL 05/25/16 09:00 06/24/16 08:59 05/25/16 13:00 Lorazepam (Ativan) 1 mg Q6H PRN ORAL For Anxiety 05/25/16 02:45 06/01/16 02:44 05/25/16 09:02 Metoprolol Succinate (Toprol XL) 25 mg DAILY ORAL 05/25/16 09:00 06/24/16 08:59 05/25/16 09:02 Minoxidil (Loniten) 2.5 mg Q12HR ORAL 05/25/16 09:00 06/24/16 08:59 05/25/16 09:01 Nateglinide (Starlix) 120 mg THREE TIMES A DAY ORAL 05/25/16 09:00 06/24/16 08:59 05/25/16 14:41 Nifedipine (Procardia XL) 60 mg DAILY ORAL 05/25/16 09:00 06/24/16 08:59 05/25/16 09:02 Ondansetron HCl (Zofran) 4 mg Q6H PRN IV Nausea & Vomiting 05/25/16 02:45 06/24/16 02:44 Patient Own Medication (Patient's Own Med) 1 ea Sa@1361 ORAL 05/26/16 16:30 06/25/16 16:29 Patient Own Medication (Patient's Own Med) 1 ea WeSa@0900 ORAL 05/26/16 09:00 06/25/16 08:59 Patient Own Medication (Patient's Own Med) 2 ea BID ORAL 05/25/16 09:00 06/24/16 08:59 Piperacillin Sod/ Tazobactam Sod/ Dextrose (Zosyn/D5W) 55 ml @ 110 mls/hr Q8HR IVPB 05/25/16 06:00 05/28/16 21:59 05/25/16 14:49 Polyethylene Glycol (Miralax) 17 gm DAILY PRN ORAL Constipation 05/25/16 09:00 06/24/16 08:59 Ranitidine HCl (Zantac) 150 mg DAILY ORAL 05/25/16 09:00 06/24/16 08:59 05/25/16 09:02 Vancomycin HCl (Vanco rx to dose) 1 ea DAILY PRN MISC Per rx protocol 05/25/16 09:00 06/24/16 08:59 MIGUEL PICHARDO May 25, 2016 15:00
[2016-05-25 16:00] VITALS: BP 188/69
--- NOTE | 2016-05-25 16:26 | General Progress Note ---
Assessment/Plan Problem List: (1) PVD (peripheral vascular disease) ICD Codes: I73.9 - Peripheral vascular disease, unspecified SNOMED: 759523119 (2) HTN (hypertension) ICD Codes: I10 - Essential (primary) hypertension SNOMED: 04750966 (3) Diabetes ICD Codes: E11.9 - Type 2 diabetes mellitus without complications SNOMED: 30961171 (4) ESRD (end stage renal disease) ICD Codes: N18.6 - End stage renal disease SNOMED: 44560046 (5) Anemia ICD Codes: D64.9 - Anemia, unspecified SNOMED: 008873112 Status: stable, progressing, tolerating diet Assessment/Plan ot pt diet wound care abx pod f/u dialysis cbc bmp am Subjective Constitutional: Reports: weakness Allergies: Coded Allergies: HEPARIN (Verified Allergy, Severe, low platelets, 06/11/14) SULFA (SULFONAMIDE ANTIBIOTICS) (Verified Allergy, Severe, nephro toxic, ) ZOLPIDEM (Verified Allergy, Unknown, 05/03/16) MEROPENEM (Verified Adverse Reaction, Intermediate, 04/01/16) Nausea and vomiting Uncoded Allergies: pork products (Allergy, Severe, rashes, 06/11/14) All Systems: reviewed and negative except above Subjective calm in bed sleepy Objective Last 24 Hour Vital Signs Date Time Temp Pulse Resp B/P Pulse Ox O2 Delivery O2 Flow Rate FiO2 05/25/16 11:50 97.7 81 21 130/71 99 05/25/16 09:02 75 172/78 05/25/16 09:02 75 172/78 05/25/16 09:01 172/78 05/25/16 08:04 97.7 75 20 172/78 99 Room Air 05/25/16 04:00 96.8 74 20 170/87 100 Room Air 05/25/16 00:00 70 05/25/16 00:00 97.0 70 16 126/36 98 Room Air 05/24/16 22:21 145/51 05/24/16 20:00 98.5 72 18 145/51 97 Room Air 05/24/16 20:00 74 Intake and Output 05/24/16 05/25/16 19:00 07:00 Intake Total 685 ml Output Total 2470 ml 0 ml Balance -2470 ml 685 ml Intake Oral 520 ml IV Total 165 ml Output Urine Total 0 ml Hemodialysis UF 2470 ml Laboratory Tests 05/25/16 09:50: White Blood Count 4.3L, Red Blood Count 3.00L, Hemoglobin 8.9L, Hematocrit 29.1L , Mean Corpuscular Volume 97, Mean Corpuscular Hemoglobin 29.8, Mean Corpuscular Hemoglobin Concent 30.6L, Red Cell Distribution Width 15.4H, Platelet Count 207, Mean Platelet Volume 7.9, Neutrophils (%) (Auto) 36.7L, Lymphocytes (%) (Auto) 40.1, Monocytes (%) (Auto) 13.5H, Eosinophils (%) (Auto) 8.0H, Basophils (%) (Auto) 1.6, Sodium Level 144, Potassium Level 4.1, Chloride Level 95L, Carbon Dioxide Level 32H, Anion Gap 17H, Blood Urea Nitrogen 53H, Creatinine 7.5H, Estimat Glomerular Filtration Rate 9.0, Glucose Level 145H, Calcium Level 9.6, Pro-B-Type Natriuretic Peptide 14002L, Random Vancomycin Level 19.1 Height (Feet): 5 Height (Inches): 8.00 Weight (Pounds): 180 General Appearance: alert EENT: normal ENT inspection Neck: normal alignment Cardiovascular: normal peripheral pulses, normal rate, regular rhythm Respiratory/Chest: chest wall non-tender, lungs clear, normal breath sounds Abdomen: normal bowel sounds, non tender, soft Extremities: normal inspection Edema: no edema noted Arm (L), no edema noted Arm (R), no edema noted Leg (L), no edema noted Leg (R), no edema noted Pedal (L), no edema noted Pedal (R), no edema noted Generalized Neurologic: responsive, motor weakness Skin: normal pigmentation, warm/dry SNEHA PAIGE May 25, 2016 16:26
[2016-05-25] MEDS ORDERED: Vancomycin 1gm/D5W 275ml IVPB ONE ×2 (17:00)
[2016-05-25 17:02] VITALS: BP 161/63
--- NOTE | 2016-05-25 19:06 | Cardiology Progress Note ---
Assessment/Plan Assessment/Plan 1. Severe aortic regurgitation, due to perforated valve or cleft leaflet, hemodynamically stable. 2. s/p atrial septal defect 3. Non-compliant left ventricle. 4. Hx of a. fib, s/p RFA of a.fib now in SR 5. Accelerated HTN, continue nifedipine, increase minoxidil. 6. Hx of DM, continue plavix and statins. 7. ESRD 8. PAD, s/p left transmetatarsal amputation, right middle toe amputation. 9. Hx of left stump OM Subjective Subjective Transferred to 4W. No cardiac events. Objective Last 24 Hour Vital Signs Date Time Temp Pulse Resp B/P Pulse Ox O2 Delivery O2 Flow Rate FiO2 05/25/16 17:02 161/63 05/25/16 16:00 97.9 77 17 188/69 99 Room Air 05/25/16 11:50 97.7 81 21 130/71 99 05/25/16 09:02 75 172/78 05/25/16 09:02 75 172/78 05/25/16 09:01 172/78 05/25/16 08:04 97.7 75 20 172/78 99 Room Air 05/25/16 04:00 96.8 74 20 170/87 100 Room Air 05/25/16 00:00 70 05/25/16 00:00 97.0 70 16 126/36 98 Room Air 05/24/16 22:21 145/51 05/24/16 20:00 98.5 72 18 145/51 97 Room Air 05/24/16 20:00 74 Intake and Output 05/24/16 05/25/16 19:00 07:00 Intake Total 685 ml Output Total 2470 ml 0 ml Balance -2470 ml 685 ml Intake Oral 520 ml IV Total 165 ml Output Urine Total 0 ml Hemodialysis UF 2470 ml 2D Echo: LVEF 60%, severe AR via perforated right coronary cusp, E/A reversal Laboratory Tests Test 05/25/16 09:50 White Blood Count 4.3 K/UL (4.8-10.8) L Red Blood Count 3.00 M/UL (4.70-6.10) L Hemoglobin 8.9 G/DL (14.2-18.0) L Hematocrit 29.1 % (42.0-52.0) L Mean Corpuscular Volume 97 FL (80-99) Mean Corpuscular Hemoglobin 29.8 PG (27.0-31.0) Mean Corpuscular Hemoglobin Concent 30.6 G/DL (32.0-36.0) L Red Cell Distribution Width 15.4 % (11.6-14.8) H Platelet Count 207 K/UL (150-450) Mean Platelet Volume 7.9 FL (6.5-10.1) Neutrophils (%) (Auto) 36.7 % (45.0-75.0) L Lymphocytes (%) (Auto) 40.1 % (20.0-45.0) Monocytes (%) (Auto) 13.5 % (1.0-10.0) H Eosinophils (%) (Auto) 8.0 % (0.0-3.0) H Basophils (%) (Auto) 1.6 % (0.0-2.0) Sodium Level 144 mEQ/L (135-145) Potassium Level 4.1 mEQ/L (3.4-4.9) Chloride Level 95 mEQ/L (98-107) L Carbon Dioxide Level 32 mEQ/L (20-30) H Anion Gap 17 (5-15) H Blood Urea Nitrogen 53 mg/dL (7-23) H Creatinine 7.5 mg/dL (0.7-1.2) H Estimat Glomerular Filtration Rate 9.0 mL/min (>60) Glucose Level 145 mg/dL (74-106) H Calcium Level 9.6 mg/dL (8.6-10.2) Pro-B-Type Natriuretic Peptide 58550 pg/mL (0-125) H Random Vancomycin Level 19.1 ug/mL Objective GENERAL: The patient is a very unfortunate 60-year-old gentleman, in no apparent respiratory distress. Comfortable. HEENT: Atraumatic and normocephalic. Anicteric. Pupils are equal, round, and reactive to light and accommodation. There is conjunctival pallor. NECK: JVP less than 5 cm. No carotid bruit. Carotid upstroke is 2+ bilaterally. CARDIOVASCULAR: Normal S1, S2. Regular rate and rhythm. No murmurs, gallops, or rubs. PMI is at the fourth intercostal space in the midclavicular line. LUNGS: Clear to auscultation and percussion. ABDOMEN: Soft, nontender, nondistended. No hepatosplenomegaly. Positive bowel sounds. EXTREMITIES: There is a dressing over feet status post amputation right second toe. Also, there is presence of a decubitus ulceration in the sacral area. CLIFTON ISLAS May 25, 2016 19:06
[2016-05-25] MEDS ORDERED: NS 275ml ONE (20:05)
[2016-05-25] MEDS ORDERED: Tubing IV Secondary IV ONE (20:05)
[2016-05-25] MEDS ORDERED: Epogen (for ESRD on dialysis) SUBQ SCH (21:00)
[2016-05-26] MEDS ORDERED: VIREAD 300 MG ORAL SCH ×2 (16:30)
[2016-05-26] MEDS ORDERED: TENOFOVIR 300 MG ORAL SCH (16:30)
--- NOTE | 2016-05-28 12:36 | Discharge Summary ---
Discharge Summary Hospital Course Date of Admission May 22, 2016 at 16:38 Date of Discharge May 25, 2016 at 20:06 Admitting Diagnosis dialysis/weakness HPI Lloyd Grigsby is a 60 year old male who was admitted on May 22, 2016 at 16:38 for Dialysis/Weakness Hospital Course dc summary dictated #[id number] Discharge Medications Continued Medications: Acetaminophen (Acetaminophen) 650 Mg/20.3 Ml Solution 650 MG ORAL Q4HR PRN for Prn Headache/Temp > 101, ML 0 Refills Acyclovir* (Acyclovir*) 400 Mg Tablet 800 MG ORAL DAILY, TAB Chlorhexidine Gluconate (Peridex) 15 Ml Mouthwash 15 ML MM, ML Clonidine Hcl* (Catapres*) 0.1 Mg Tablet 0.1 MG ORAL EVERY 8 HOURS PRN for For High Blood Pressure, TAB Clopidogrel Bisulfate* (Plavix*) 75 Mg Tablet 75 MG ORAL DAILY, TAB Diphenhydramine Hcl (Diphenhydramine Hcl) 50 Mg/1 Ml Vial 50 MG IJ EVERY 6 HOURS, VIAL Docusate Sodium* (Colace*) 100 Mg Capsule 100 MG ORAL TWICE A DAY, CAP Doxercalciferol (Hectorol) 0.5 Mcg Capsule 2.5 MCG PO DAILY, CAP Emtricitabine* (Emtriva*) 200 Mg Capsule 200 MG ORAL, CAP every Sat & Sat @1700 Estrogens,Conjugated (Premarin) 0.45 Mg Tablet 0.625 MG ORAL DAILY, #30 TAB 0 Refills Folic Acid/Vitamin B Comp W-C (Renal Caps Softgel) 1 Mg Capsule 1 MG PO DAILY, CAP Ipratropium Eek (Atrovent Hfa) 12.9 Gm Hfa.aer.ad 12.9 GM IH Lactobacillus Acidophilus (Probiotic) 1 Each Capsule 1 EACH PO, CAP Lanthanum Carbonate (Fosrenol) 1,000 Mg Tab.chew 1500 MG PO TID, TAB Lorazepam* (Lorazepam*) 1 Mg Tablet 1 MG ORAL EVERY 6 HOURS PRN for For Anxiety, TAB Metoprolol Succinate* (Toprol Xl*) 25 Mg Tab.er.24h 25 MG ORAL DAILY, TAB Minoxidil* (Loniten*) 2.5 Mg Tablet 2.5 MG PO Q12HR, TAB Nateglinide* (Starlix*) 60 Mg Tablet 120 MG ORAL THREE TIMES A DAY, TAB Nelfinavir Mesylate (Viracept) 625 Mg Tablet 2 TAB PO BID, TAB Nelfinavir Mesylate* (Viracept*) 250 Mg Tablet 625 MG ORAL BIDAC, #90 TAB 0 Refills Nifedipine Xl* (Procardia Xl*) 60 Mg Tab.er.24 60 MG ORAL DAILY, TAB Ondansetron* (Zofran*) 4 Mg/2 Ml Vial 4 MG IV Q6H PRN for Nausea & Vomiting, VIAL Oxycodone Hcl/Acetaminophen 10-325* (Oxycodone-Acetaminophen 10-325*) 1 Each Tablet 1 TAB ORAL Q4H PRN for Breakthrough Pain, TAB Iuaxyhetuash-Gcyp-Boivjgwe,Iso (Zosyn 3.375 Gm Pre Mix-Bag) 3.375 Gm/50 Ml Froz.piggy 2.25 GM IVPB EVERY 8 HOURS, BAG Polyethylene Glycol 3350* (Miralax*) 17 Gm Powd.pack 17 GM ORAL DAILY PRN for Constipation, PACKET Propylene Glycol/Peg 400 (Systane 0.3-0.4% Eye Drops) 15 Ml Drops 15 ML OP, ML Ranitidine Hcl* (Zantac*) 150 Mg Tablet 150 MG ORAL DAILY, #30 TAB 0 Refills Sevelamer Hcl (Renagel) 800 Mg Tablet 4 TAB ORAL TID, #90 TAB 0 Refills Tenofovir Disoproxil Fumarate* (Viread*) 300 Mg Tablet 300 MG ORAL q sat, #30 TAB 0 Refills Discharge Discharge Disposition Patient was discharged home with home health services Discharge Diagnoses: Discharge Instructions Discharge Instructions Special Instructions I have been assigned to complete a D/C Summary on this account. I was not involved in the patient management Sunitha Giraldo NP (Vanchtein) May 28, 2016 12:36
--- NOTE | 2016-05-29 04:17 | Discharge Summary 2 SIG ---
DATE OF ADMISSION: 05/22/2016 DATE OF DISCHARGE: 05/25/2016 REASON FOR ADMISSION: A 60-year-old male, who was recently discharged from the facility, came with increased generalized weakness. The patient stated that he did not have a dialysis for the last three days. The patient with multiple medical comorbidities include end-stage renal disease, on hemodialysis; osteomyelitis; HIV; diabetes; hypertension; and PVD. The patient was discharged three days ago on IV antibiotics. The patient complained of the left toe pain and in the emergency department, the patient found to have hyperkalemia. Potassium was 6.2, creatinine was 1.2, and glucose was 50. The patient needed dialysis. Hyperkalemia was treated in the emergency room with calcium and Kayexalate. 2 amps was given. Factory Process Workers notified for need of the dialysis. The patient transferred to the floor for further management. ADMITTING DIAGNOSES: 1. Hyperkalemia. 2. End-stage renal disease. 3. Intractable pain. 4. Peripheral vascular disease with history of multiple revascularization. HOSPITAL COURSE: The patient had dialysis. The patient had Cardiology, ID, and Nephrology followed as well as a greenhouse specialist. Per Cardiology, the patient had severe aortic regurgitation; however, well-compensated. The patient hemodynamically stable. His level of activities is minimum, but he is asymptomatic at rest. No further cardiac intervention required at this time in regards to severe aortic regurgitation as per Cardiology. Chest x-ray revealed no evidence of pulmonary edema despite the fact, that the patient did not have dialysis for three days. Oxygenation was stable on room air. The patient with recent right second toe amputation as well as left foot revascularization. The patient had a wound vacuum to the left foot. Veterinary Epidemiologist had seen the patient, recommended continue wound vacuum, with dressing change Saturday, Saturday, and Saturday. Podiatry spoke with the plastic surgeon regarding skin graft to the left foot. Being considered . The patient follows with Wound Care Clinic as scheduled. Blood pressure was initially not controlled and was managed by career specialist. The patient continued on calcium-channel tyler. Minoxidil was added, and the dose was subsequently increased. The HAART therapy resumed. ID followed the patient. Per ID, the patient needs to continue IV antibiotics for osteomyelitis for total of 6 weeks. He needs another eight days of Zosyn and vancomycin as per ID recommendations. Blood sugar was managed with the sliding scale of insulin and was stable. Hemoglobin and hematocrit were closely monitored. FINAL DIAGNOSES: 1. End-stage renal disease, on hemodialysis. 2. Peripheral vascular disease with history of multiple revascularization. 3. Status post right second toe amputation. 4. Osteomyelitis, left foot. 5. Non-pressure ulcer, left foot. 6. Hypertensive urgency. 7. Chronic severe aortic regurgitation. 8. Diabetes mellitus. 9. Anemia. 10. Human immunodeficiency virus status. DISCHARGE MEDICATIONS: See medication reconciliation list. DISCHARGE INSTRUCTIONS: The patient discharged home with home health services for wound care and IV antibiotics. FOLLOWUP: Follow up with the wound care clinic as well as the primary medical doctor. Reinforced compliance with dialysis treatment. All consultants cleared the patient for discharge. Louis Barahona D.O. I have been assigned to dictate discharge summary on this account and I was not involved in the patient's management. Sunitha Giraldo (Vanchtein) NSindhu DR: RASTA JOB#: [id number] CC: AMBAR
--- NOTE | 2016-06-23 03:11 | Cardiology Report ---
APPROVED REPORT EKG Measurement Heart [id number] Sinus rhythm with premature supraventricular complexes Possible Left atrial enlargement Left axis deviation Incomplete right bundle branch block Left ventricular hypertrophy Cannot rule out Septal infarct, age undetermined Abnormal ECG
== END 2016-05-25 20:06 | disposition home health service (06) | DRG 682 ==
LOC: EMR 14:40 → EDBEDREQ 15:51 → 2E 16:38 → EDBEDREQSVC 18:25 → EDBEDREQ 18:33 → 4E 05-25 03:01
PROC: 5A1D60Z (ICD-10-PCS; principal; 2016-05-22)
DX: I12.0 Hypertensive chronic kidney disease with stage 5 chronic kidney disease or end stage renal disease (principal); N18.6 End stage renal disease; L89.152 Pressure ulcer of sacral region, stage 2; E87.2 Acidosis; M86.8X7 Other osteomyelitis, ankle and foot; E11.22 Type 2 diabetes mellitus with diabetic chronic kidney disease; E11.51 Type 2 diabetes mellitus with diabetic peripheral angiopathy without gangrene; L97.929 Non-pressure chronic ulcer of unspecified part of left lower leg with unspecified severity; E11.69 Type 2 diabetes mellitus with other specified complication; B96.20 Unspecified Escherichia coli [E. coli] as the cause of diseases classified elsewhere; Z99.2 Dependence on renal dialysis; E87.5 Hyperkalemia; D63.1 Anemia in chronic kidney disease; Z91.19 Patient's noncompliance with other medical treatment and regimen; I35.1 Nonrheumatic aortic (valve) insufficiency; J44.9 Chronic obstructive pulmonary disease, unspecified; G54.6 Phantom limb syndrome with pain; Z89.421 Acquired absence of other right toe(s); Z86.73 Personal history of transient ischemic attack (TIA), and cerebral infarction without residual deficits
CPT/HCPCS: 36415; 71010; 80048; 80053; 80202; 82550; 82553; 82962; 83540; 83550; 83880; 83970; 84100; 85025; 87081; 93005; 94640; 94664; J1815; J2405

== ENCOUNTER → 2016-06-26 | Outpatient (RCR) | payer SELFPAY | END | disposition home or self-care (01) | LOC: WCC 16:59 | DX: L97.509 Non-pressure chronic ulcer of other part of unspecified foot with unspecified severity (principal); E08.621 Diabetes mellitus due to underlying condition with foot ulcer; B20 Human immunodeficiency virus [HIV] disease; L97.519 Non-pressure chronic ulcer of other part of right foot with unspecified severity; Z79.02 Long term (current) use of antithrombotics/antiplatelets; Z93.1 Gastrostomy status; E11.22 Type 2 diabetes mellitus with diabetic chronic kidney disease; I12.0 Hypertensive chronic kidney disease with stage 5 chronic kidney disease or end stage renal disease; N18.6 End stage renal disease; I51.9 Heart disease, unspecified; Z88.2 Allergy status to sulfonamides; Z88.8 Allergy status to other drugs, medicaments and biological substances ==

== ENCOUNTER 2016-11-10 15:36 | Inpatient (IN) | payer BC ==
[~2016-11-10] VITALS: Ht 198.1 cm; Wt 84.4 kg
[2016-11-10 16:00] VITALS: BP 101/48
[2016-11-10] MEDS ORDERED: Piperacillin/Tazobactam 3.375 GM in NS 110 ML IVPB ONE (16:15)
[2016-11-10] MEDS ORDERED: Zosyn 3.375gm inj ONE (16:52)
[2016-11-10 17:13] LABS: BASOPHILS % (AUTO) 1.4 % (0.0-2.0); EOSINOPHILS % (AUTO) 3.4 % (0.0-3.0); MEAN CORPUSCULAR HEMOGLOBIN 26.4 PG (27.0-31.0); MEAN CORPUSCULAR HGB CONC 29.8 G/DL (32.0-36.0); MEAN CORPUSCULAR VOLUME 89 FL (80-99); MONOCYTES % (AUTO) 17.7 % (1.0-10.0); NEUTROPHILS % (AUTO) 42.5 % (45.0-75.0); PLATELET COUNT 251 K/UL (150-450); RED BLOOD COUNT 4.65 M/UL (4.70-6.10); RED CELL DISTRIBUTION WIDTH 22.3 % (11.6-14.8); WHITE BLOOD COUNT 6.3 K/UL (4.8-10.8)
[2016-11-10 17:20] LABS: PROTHROMBIN TIME 10.8 SEC (9.30-11.50)
[2016-11-10] MEDS ORDERED: LORazepam Inj 2mg/ml 1ml ONE (17:24)
[2016-11-10 17:25] LABS: TROPONIN I < 0.30 ng/mL (<=0.30)
[2016-11-10 17:28] LABS: ALBUMIN/GLOBULIN RATIO 0.8 (1.0-2.7); CREATININE 11.6 mg/dL (0.7-1.2); GLOMERULAR FILTRATION RATE 5.5 mL/min (>60); POTASSIUM 5.2 mEQ/L (3.4-4.9); TOTAL PROTEIN 8.3 g/dL (6.6-8.7)
[2016-11-10] MEDS ORDERED: LORazepam Inj 2mg/ml 1ml IV ONE (17:30)
[2016-11-10 18:31] VITALS: BP 123/37
--- NOTE | 2016-11-10 18:48 | Emergency Room Report ---
History of Present Illness General Chief Complaint: Skin Rash/Abscess Source: Patient Present Illness HPI Patient is a 61-year-old male who presented after increased discoloration to his heel. Patient prior history of chronic nonhealing wound to his lower extremity. The patient had noticed increased discoloration and exudate. The patient had been present on dialysis at home 5 times a week. The patient had reportedly had a dialysis machine brake. The patient had been on home IV antibiotics and had been followed by Dr. Estrada. The patient had been previously followed by Dr. Blackburn in podiatry for wound care. Patient peripheral vascular disease as well as end-stage renal disease. The patient was being dialyzed through a left sided dialysis access and was getting IV antibiotics through a midline which included vancomycin and as well as Zosyn. Allergies: Coded Allergies: HEPARIN (Verified Allergy, Severe, low platelets, 06/11/14) SULFA (SULFONAMIDE ANTIBIOTICS) (Verified Allergy, Severe, nephro toxic, ) ZOLPIDEM (Verified Allergy, Unknown, 05/03/16) MEROPENEM (Verified Adverse Reaction, Intermediate, 04/01/16) Nausea and vomiting Uncoded Allergies: pork products (Allergy, Severe, rashes, 06/11/14) Patient History Past Medical History: see triage record Reviewed Nursing Documentation: PMH: Agreed, PSxH: Agreed Nursing Documentation-PMH Hx Cardiac Problems: Yes - Osteomylitis, HHT, CHF, TIA, ASD repaired w/implant 04/02 Hx Hypertension: Yes - HIV, Hep C Hx Diabetes: Yes Hx Cancer: No Hx Gastrointestinal Problems: Yes - GI AVM's Hx Dialysis: Yes - ESRD, M, W, F Hx Neurological Problems: Yes - TIA Hx Transient Ischemic Attacks: Yes Hx Seizures: Yes Hx Weakness: Yes - right side Review of Systems All Other Systems: negative except mentioned in HPI Physical Exam Vital Signs Date Time Temp Pulse Resp B/P Pulse Ox O2 Delivery O2 Flow Rate FiO2 11/10/16 15:48 98.1 60 15 120/42 99 Room Air Sp02 EP Interpretation: normal General Appearance: alert, Chronically Ill Neck: limited range of motion Respiratory: lungs clear, normal breath sounds Cardiovascular #1: edema - discoloration to right heel with edema. Gastrointestinal: normal inspection Musculoskeletal: other Neurologic: responsive, motor weakness Medical Decision Making Diagnostic Impression: Primary Impression: Anemia Additional Impressions: HIV disease Osteomyelitis Diabetes ESRD (end stage renal disease) ER Course Patient presented for lower extremity discoloration. The differential diagnosis included was not limited to osteomyelitis, necrosis, hyperkalemia, fluid overload among others.Because of complexity of patient's case laboratory testing and imaging studies were ordered. Laboratory testing showed mildly elevated potassium as well as a elevated BUN/ creatinine consistent with uremia. Patient was noted to have some abnormal movements while in the emergency department consistent with hypoglycemia versus seizure. The patient was given IV Ativan. Laboratory testing showed a low blood sugar however Accu-Chek was within normal limits. The patient was given D50. The patient had improvement in his mental status. The patient was started on D. [address] the head read by radiology showed atrophic changes no evident hemorrhage or CVA. The patient was noted to have evidence of the right lower extremity infection. Patient started on IV antibiotics. Dr. Arash Bianchi was contacted for renal consult. Dr. Didier Thornton agreed to admit the patient for further management of recurrent hypoglycemia Labs Test 11/10/16 16:55 11/10/16 17:30 White Blood Count 6.3 K/UL (4.8-10.8) Red Blood Count 4.65 M/UL (4.70-6.10) Hemoglobin 12.3 G/DL (14.2-18.0) Hematocrit 41.2 % (42.0-52.0) Mean Corpuscular Volume 89 FL (80-99) Mean Corpuscular Hemoglobin 26.4 PG (27.0-31.0) Mean Corpuscular Hemoglobin Concent 29.8 G/DL (32.0-36.0) Red Cell Distribution Width 22.3 % (11.6-14.8) Platelet Count 251 K/UL (150-450) Mean Platelet Volume 8.0 FL (6.5-10.1) Neutrophils (%) (Auto) 42.5 % (45.0-75.0) Lymphocytes (%) (Auto) 35.0 % (20.0-45.0) Monocytes (%) (Auto) 17.7 % (1.0-10.0) Eosinophils (%) (Auto) 3.4 % (0.0-3.0) Basophils (%) (Auto) 1.4 % (0.0-2.0) Prothrombin Time 10.8 SEC (9.30-11.50) Prothromb Time International Ratio 1.0 (0.9-1.1) Activated Partial Thromboplast Time 32 SEC (23-33) Sodium Level 138 mEQ/L (135-145) Potassium Level 5.2 mEQ/L (3.4-4.9) Chloride Level 97 mEQ/L (98-107) Carbon Dioxide Level 20 mEQ/L (20-30) Anion Gap 21 (5-15) Blood Urea Nitrogen 76 mg/dL (7-23) Creatinine 11.6 mg/dL (0.7-1.2) Estimat Glomerular Filtration Rate 5.5 mL/min (>60) Glucose Level 29 mg/dL (74-106) Lactic Acid Level 1.10 mmol/L (0.66-2.22) Calcium Level 8.0 mg/dL (8.6-10.2) Total Bilirubin 0.4 mg/dL (0.0-1.2) Aspartate Amino Transf (AST/SGOT) 35 U/L (5-40) Alanine Aminotransferase (ALT/SGPT) 24 U/L (3-41) Alkaline Phosphatase 215 U/L (40-129) Total Creatine Kinase 61 U/L (38-174) Creatine Kinase MB 2.0 ng/mL (< 6.7) Creatine Kinase MB Relative Index 3.2 Troponin I < 0.30 ng/mL (<=0.30) Total Protein 8.3 g/dL (6.6-8.7) Albumin 3.7 g/dL (3.5-5.2) Globulin 4.6 g/dL Albumin/Globulin Ratio 0.8 (1.0-2.7) Random Vancomycin Level 30.9 ug/mL EKG Diagnostic Results Rate: normal Rhythm: NSR ST Segments: no acute changes Rhythm Strip Diag. Results EP Interpretation: yes Rhythm: NSR, no PVC's, no ectopy Last Vital Signs Date Time Temp Pulse Resp B/P Pulse Ox O2 Delivery O2 Flow Rate FiO2 11/10/16 18:31 98.3 68 17 123/37 100 Room Air Status: improved Disposition: ADMITTED INPATIENT Condition: Serious Referrals: ODALIS EVANS (PCP) Hector Yoder Nov 10, 2016 18:48
[2016-11-10] MEDS ORDERED: Sodium Bicarbonate 50ml Carp IV ONE (19:00)
[2016-11-10] MEDS: Dextrose 10% 1,000 ML IV SCH (19:19)
[2016-11-10 19:30] VITALS: BP 136/54
[2016-11-10] MEDS ORDERED: ZOSYN 2.252.25 GM/51 IVPB (20:12)
[2016-11-10] MEDS ORDERED: LORAZEPAM0.5 MG ORAL (20:12)
[2016-11-10] MEDS ORDERED: VANCOMYCIN1 GM/250 M IV (20:12)
[2016-11-10] MEDS ORDERED: OXYCODONE HCL5 MG ORAL (20:12)
[2016-11-10] MEDS ORDERED: EPOGEN10000 UNIT SUBQ (20:36)
[2016-11-10] MEDS ORDERED: REFRESH CLASSI1 EACH OP (20:36)
[2016-11-10] MEDS ORDERED: CALCITRIOL0.5 MCG PO (20:36)
[2016-11-10] MEDS ORDERED: SYSTANE 0.3-0.1 EAC1 OP (20:36)
[2016-11-10] MEDS ORDERED: SENSIPAR30 MG ORAL (20:36)
[2016-11-10] MEDS ORDERED: AMMONIUM LACTA385 GM TP (20:36)
[2016-11-10] MEDS ORDERED: EPOGEN20000 UNI1 SUBQ (20:36)
[2016-11-10] MEDS ORDERED: VITAMIN D250000 UNI1 ORAL (20:36)
[2016-11-10] MEDS ORDERED: TEMAZEPAM15 MG ORAL (20:46)
[2016-11-10] MEDS ORDERED: Vancomycin 1 GM in D5W 275 ML IVPB ONE (23:45)
[2016-11-11] VITALS: BP 149/59
[2016-11-11] MEDS ORDERED: AMIKACIN IV ONE (01:00)
[2016-11-11] MEDS ORDERED: NS IV ONE (01:00)
[2016-11-11] MEDS: Dextrose 10% 1,000 ML IV SCH (01:40)
[2016-11-11] MEDS ORDERED: Amikacin 500mg/2mL Inj ONE (02:00)
[2016-11-11] MEDS ORDERED: Cefepime 1gm vial ONE (02:03)
[2016-11-11] MEDS: metroNIDAZOLE 500mg 100 ML IVPB SCH ×3 (03:05→17:42)
[2016-11-11] MEDS: Cefepime HCl 1 GM in D5W 55 ML IVPB SCH (03:06)
[2016-11-11 04:00] VITALS: BP 111/40
[2016-11-11 06:41] LABS: BASOPHILS % (AUTO) 1.3 % (0.0-2.0); EOSINOPHILS % (AUTO) 6.3 % (0.0-3.0); LYMPHOCYTES % (AUTO) 35.2 % (20.0-45.0); MEAN CORPUSCULAR HEMOGLOBIN 26.4 PG (27.0-31.0); MEAN CORPUSCULAR HGB CONC 29.7 G/DL (32.0-36.0); MEAN CORPUSCULAR VOLUME 89 FL (80-99); MEAN PLATELET VOLUME 7.3 FL (6.5-10.1); MONOCYTES % (AUTO) 14.3 % (1.0-10.0); NEUTROPHILS % (AUTO) 42.9 % (45.0-75.0); PLATELET COUNT 210 K/UL (150-450); RED BLOOD COUNT 4.26 M/UL (4.70-6.10); RED CELL DISTRIBUTION WIDTH 21.6 % (11.6-14.8)
[2016-11-11] MEDS ORDERED: Amikacin Rx to dose MISC PRN (07:00)
[2016-11-11 07:01] LABS: ALBUMIN/GLOBULIN RATIO 0.7 (1.0-2.7); CALCIUM 8.1 mg/dL (8.6-10.2); CREATININE 12.2 mg/dL (0.7-1.2); GLOMERULAR FILTRATION RATE 5.1 mL/min (>60); POTASSIUM 5.9 mEQ/L (3.4-4.9); TOTAL PROTEIN 7.3 g/dL (6.6-8.7)
[2016-11-11 10:18] VITALS: BP 126/65
[2016-11-11] MEDS: HYDROmorphone 1mg/ml Carpuject IVP PRN ×4 (10:29→22:16)
[2016-11-11] MEDS ORDERED: oxyCODONE 5mg IR tab ORAL PRN (10:30)
[2016-11-11] MEDS ORDERED: Emtricitabine 200mg tab ORAL SCH (10:30)
--- NOTE | 2016-11-11 10:30 | Diagnostic Imaging Report ---
Indication: Altered mental status Technique: Continuous helical CT scanning of the head was performed utilizing automated exposure control without intravenous contrast material. Axial and coronal reconstructions were obtained. Comparison: None CT dose: Total DLP 1492 mGycm; CTDI vol 70.4 mGy Findings: There is significant motion artifact limiting evaluation. There is no acute intracranial hemorrhage, mass effect or cortical edema. The ventricles, cisterns and sulci are prominent consistent with atrophy. Periventricular hypoattenuation is seen, a nonspecific finding. Vascular calcifications are seen. The posterior fossa and fourth ventricle are unremarkable. Sellar and suprasellar regions are grossly unremarkable. Visualized mastoid air cells and paranasal sinuses are unremarkable. No focal lesions of the bony calvarium or soft tissues of the scalp are seen. Impression: Significant motion and artifact limiting evaluation without gross evidence of acute intracranial hemorrhage, mass effect or cortical edema. MRI may be obtained for more sensitive evaluation as clinically indicated. Atrophy and nonspecific periventricular hypoattenuation suggestive of chronic ischemic microvascular changes. The CT scanner at [facility] is accredited by the [place] [employer] and the scans are performed using protocols designed to limit radiation exposure to as low as reasonably achievable to attain images of sufficient resolution adequate for diagnostic evaluation.
--- NOTE | 2016-11-11 10:33 | Diagnostic Imaging Report ---
Indication: Shortness of breath Technique: XRAY CHEST 1 V Comparison: 05/22/16 Findings: Cardiac silhouette is prominent with pulmonary vascular congestion and mild basilar atelectasis. A left chest permacath is present. Atherosclerotic changes are seen. Degenerative changes of the spine are noted. Impression: Cardiomegaly with pulmonary vascular congestion and basilar atelectasis. Clinical correlation/followup recommended.
[2016-11-11] MEDS: Sensipar 30mg Tab ORAL SCH (11:59)
[2016-11-11] MEDS: Metoprolol Succinate XL 25mg tab ORAL SCH (12:00)
[2016-11-11] MEDS: Renvela 800mg Pkt NG SCH ×2 (12:08→17:42)
[2016-11-11] MEDS ORDERED: Tubing IV Secondary IV ONE (15:07)
--- NOTE | 2016-11-11 15:22 | History & Physical ---
History and Physical History & Physicial Dictated for Int Med-no. [id number]. GISELE JIMENEZ Nov 11, 2016 15:22
--- NOTE | 2016-11-11 16:10 | Infectious Diseases Prog Note ---
Assessment/Plan Assessment/Plan Full consult dictated: A) 1) right heel/foot osteo/infected wounds/gangrene 2) on zosyn and vancomycin as outpatient 3) hiv 4) pvd, esrd, hd, hepatitis c P) 1) vancomycin, cefepime, flagyl, amikacin 2) watch labs 3) podiatry f/u, likely debridement 4) continue treatment per Dr. Thornton Subjective Allergies: Coded Allergies: HEPARIN (Verified Allergy, Severe, low platelets, 06/11/14) SULFA (SULFONAMIDE ANTIBIOTICS) (Verified Allergy, Severe, nephro toxic, ) ZOLPIDEM (Verified Allergy, Unknown, 05/03/16) MEROPENEM (Verified Adverse Reaction, Intermediate, 04/01/16) Nausea and vomiting Uncoded Allergies: pork products (Allergy, Severe, rashes, 06/11/14) Objective Vital Signs Last 24 Hour Vital Signs Date Time Temp Pulse Resp B/P Pulse Ox O2 Delivery O2 Flow Rate FiO2 11/11/16 12:13 67 11/11/16 12:00 70 131/64 11/11/16 10:18 126/65 11/11/16 08:00 68 11/11/16 04:00 97.5 61 19 111/40 97 Room Air 11/11/16 04:00 62 11/11/16 02:32 97.5 11/11/16 00:00 98.0 60 19 149/59 100 Room Air 11/11/16 00:00 58 11/10/16 21:06 98.3 62 17 136/54 100 Room Air 11/10/16 19:30 98.3 62 17 136/54 100 Room Air 11/10/16 18:31 98.3 68 17 123/37 100 Room Air Height (Feet): 6 Height (Inches): 8.00 Weight (Pounds): 170 Laboratory Tests Test 11/10/16 16:55 11/10/16 17:30 11/11/16 06:10 White Blood Count 6.3 K/UL (4.8-10.8) 5.0 K/UL (4.8-10.8) Red Blood Count 4.65 M/UL (4.70-6.10) L 4.26 M/UL (4.70-6.10) L Hemoglobin 12.3 G/DL (14.2-18.0) L 11.2 G/DL (14.2-18.0) L Hematocrit 41.2 % (42.0-52.0) L 37.9 % (42.0-52.0) L Mean Corpuscular Volume 89 FL (80-99) 89 FL (80-99) Mean Corpuscular Hemoglobin 26.4 PG (27.0-31.0) L 26.4 PG (27.0-31.0) L Mean Corpuscular Hemoglobin Concent 29.8 G/DL (32.0-36.0) L 29.7 G/DL (32.0-36.0) L Red Cell Distribution Width 22.3 % (11.6-14.8) H 21.6 % (11.6-14.8) H Platelet Count 251 K/UL (150-450) 210 K/UL (150-450) Mean Platelet Volume 8.0 FL (6.5-10.1) 7.3 FL (6.5-10.1) Neutrophils (%) (Auto) 42.5 % (45.0-75.0) L 42.9 % (45.0-75.0) L Lymphocytes (%) (Auto) 35.0 % (20.0-45.0) 35.2 % (20.0-45.0) Monocytes (%) (Auto) 17.7 % (1.0-10.0) H 14.3 % (1.0-10.0) H Eosinophils (%) (Auto) 3.4 % (0.0-3.0) H 6.3 % (0.0-3.0) H Basophils (%) (Auto) 1.4 % (0.0-2.0) 1.3 % (0.0-2.0) Prothrombin Time 10.8 SEC (9.30-11.50) Prothromb Time International Ratio 1.0 (0.9-1.1) Activated Partial Thromboplast Time 32 SEC (23-33) Sodium Level 138 mEQ/L (135-145) 138 mEQ/L (135-145) Potassium Level 5.2 mEQ/L (3.4-4.9) H 5.9 mEQ/L (3.4-4.9) H Chloride Level 97 mEQ/L (98-107) L 97 mEQ/L (98-107) L Carbon Dioxide Level 20 mEQ/L (20-30) 22 mEQ/L (20-30) Anion Gap 21 (5-15) H 19 (5-15) H Blood Urea Nitrogen 76 mg/dL (7-23) H 85 mg/dL (7-23) H Creatinine 11.6 mg/dL (0.7-1.2) H 12.2 mg/dL (0.7-1.2) H Estimat Glomerular Filtration Rate 5.5 mL/min (>60) 5.1 mL/min (>60) Glucose Level 29 mg/dL (74-106) *L 110 mg/dL (74-106) H Lactic Acid Level 1.10 mmol/L (0.66-2.22) Calcium Level 8.0 mg/dL (8.6-10.2) L 8.1 mg/dL (8.6-10.2) L Total Bilirubin 0.4 mg/dL (0.0-1.2) 0.3 mg/dL (0.0-1.2) Aspartate Amino Transf (AST/SGOT) 35 U/L (5-40) 29 U/L (5-40) Alanine Aminotransferase (ALT/SGPT) 24 U/L (3-41) 20 U/L (3-41) Alkaline Phosphatase 215 U/L (40-129) H 176 U/L (40-129) H Total Creatine Kinase 61 U/L (38-174) Creatine Kinase MB 2.0 ng/mL (< 6.7) Creatine Kinase MB Relative Index 3.2 Troponin I < 0.30 ng/mL (<=0.30) Total Protein 8.3 g/dL (6.6-8.7) 7.3 g/dL (6.6-8.7) Albumin 3.7 g/dL (3.5-5.2) 3.2 g/dL (3.5-5.2) L Globulin 4.6 g/dL 4.1 g/dL Albumin/Globulin Ratio 0.8 (1.0-2.7) L 0.7 (1.0-2.7) L Random Vancomycin Level 30.9 ug/mL Vancomycin Level Trough 28.4 ug/mL (5.0-12.0) H Current Medications Medications (Trade) Dose Ordered Sig/Zohaib Route PRN Reason Start Time Stop Time Status Last Admin Dose Admin Amikacin Protocol (Amikacin pharmacy to dose) 1 ea DAILY PRN MISC Per rx protocol 11/11/16 07:00 12/11/16 06:59 Amikacin Sulfate/ Sodium Chloride (Amikin/Sodium Chloride) 57 ml @ 110.799 mls/hr ONCE ONCE IV 11/12/16 18:00 11/12/16 18:30 Cefepime HCl 1 gm/ Dextrose 55 ml @ 110 mls/hr Q24H IVPB 11/11/16 01:00 11/18/16 00:59 11/11/16 03:06 Cinacalcet (Sensipar) 30 mg DAILY ORAL 11/11/16 12:00 12/11/16 11:59 11/11/16 11:59 Clonidine HCl (Catapres) 0.1 mg EVERY 8 HOURS PRN ORAL For High Blood Pressure 11/11/16 10:30 12/11/16 10:29 UNV Clopidogrel Bisulfate (Plavix) 75 mg DAILY ORAL 11/11/16 12:00 12/11/16 11:59 11/11/16 11:59 Emtricitabine (Emtriva) 200 mg DAILY ORAL 11/11/16 10:30 12/11/16 10:29 UNV Hydromorphone HCl (Dilaudid) 1 mg Q4H PRN IVP For Pain 11/11/16 10:15 11/18/16 10:14 11/11/16 14:03 Metoprolol Succinate (Toprol XL) 25 mg DAILY ORAL 11/11/16 12:00 12/11/16 11:59 11/11/16 12:00 Metronidazole (Flagyl) 100 ml @ 100 mls/hr Q8H IVPB 11/11/16 00:00 11/18/16 00:00 11/11/16 09:58 Oxycodone HCl (Roxicodone) 5 mg Q4H PRN ORAL For Pain 11/11/16 10:30 11/18/16 10:29 UNV Sevelamer Carbonate 3200 mg 3,200 mg TIAC NG 11/11/16 11:30 12/11/16 11:29 11/11/16 12:08 Sodium Chloride 1,000 ml @ 500 mls/hr Q2H PRN IVLG sbp<90 during hd 11/11/16 21:48 12/11/16 21:47 Sodium Chloride 1,000 ml @ 500 mls/hr Q2H PRN IVLG sbp<90 during hd 11/12/16 10:44 12/12/16 10:43 Temazepam (Restoril) 15 mg BEDTIME ORAL 11/11/16 21:00 11/18/16 20:59 UNV Vancomycin HCl (Vanco rx to dose) 1 ea DAILY PRN MISC Per rx protocol 11/11/16 07:00 12/11/16 06:59 INOCENCIA DOS SANTOS Nov 11, 2016 16:10
[2016-11-11] MEDS: [UNRECOGNIZED DRUG - OTHER] ORAL SCH (18:00)
[2016-11-11] MEDS ORDERED: Amikacin 500 MG in NS 55 ML IV ONE (18:00)
[2016-11-11 20:00] VITALS: BP 147/50
--- NOTE | 2016-11-11 23:56 | Consultation ---
Consult Note Consult Note PODIATRY CONSULTATION DATE OF CONSULTATION: 11/11/16 REASON FOR CONSULTATION: Bilateral foot ulcers CONSULTING PHYSICIAN: Channing Ordonez DPM COVERING FOR: Victor Hugo Blackburn DPM HISTORY OF PRESENT ILLNESS: Patient is a poor historian. Therefore, the history was obtained from reviewing the chart and talking to the patient's . She reports that the patient's home hemodialysis machine malfunctioned and she had to bring her to [facility] to be hemodialyzed. She states that her has had multiple ulcers and surgeries on both feet. Patient currently has a history of bilateral heel ulcers, right worse than left. Patient 's has been performing daily dressing changes with painting the wounds with betadine and covering them with dry dressings. Patient has also been on IV antibiotics for 30 days. No current nausea, vomiting, fevers, or chills reported. ALLERGIES: Heparin, meropenem, sulfa, zolpidem, and pork ANTIBIOTICS: Patient is currently on vancomycin and zosyn. Please refer to chart for all other medications PAST MEDICAL HISTORY: CVA, ESRD, HTN, T2DM, HIV, HEP C, PVD, and chronic bilateral foot ulcers SURGICAL HISTORY: Left foot partial amputation and right toe amputation. Multiple wound debridements of bilateral foot wounds SOCIAL HISTORY: Patient denies tobacco, alcohol, or illicit drug use FAMILY HISTORY: No pertinent findings OBJECTIVE: Last 24 Hour Vital Signs Date Time Temp Pulse Resp B/P Pulse Ox O2 Delivery O2 Flow Rate FiO2 11/12/16 06:38 98.8 11/12/16 04:00 97.7 67 18 136/35 100 Room Air 11/12/16 04:00 67 11/12/16 00:00 72 11/12/16 00:00 97.7 66 20 133/65 100 Room Air 11/11/16 21:00 Room Air 11/11/16 20:00 97.9 72 20 147/50 99 Room Air 11/11/16 20:00 73 11/11/16 17:30 Room Air 11/11/16 16:00 65 11/11/16 12:13 67 11/11/16 12:00 70 131/64 11/11/16 10:18 126/65 Laboratory Tests Test 11/12/16 07:40 White Blood Count 4.9 K/UL (4.8-10.8) Red Blood Count 4.11 M/UL (4.70-6.10) L Hemoglobin 11.1 G/DL (14.2-18.0) L Hematocrit 36.5 % (42.0-52.0) L Mean Corpuscular Volume 89 FL (80-99) Mean Corpuscular Hemoglobin 27.1 PG (27.0-31.0) Mean Corpuscular Hemoglobin Concent 30.5 G/DL (32.0-36.0) L Red Cell Distribution Width 22.0 % (11.6-14.8) H Platelet Count 200 K/UL (150-450) Mean Platelet Volume 7.1 FL (6.5-10.1) Neutrophils (%) (Auto) 49.3 % (45.0-75.0) Lymphocytes (%) (Auto) 29.8 % (20.0-45.0) Monocytes (%) (Auto) 13.1 % (1.0-10.0) H Eosinophils (%) (Auto) 6.5 % (0.0-3.0) H Basophils (%) (Auto) 1.3 % (0.0-2.0) Sodium Level 134 mEQ/L (135-145) L Potassium Level 5.2 mEQ/L (3.4-4.9) H Chloride Level 93 mEQ/L (98-107) L Carbon Dioxide Level 24 mEQ/L (20-30) Anion Gap 17 (5-15) H Blood Urea Nitrogen 58 mg/dL (7-23) #H Creatinine 9.5 mg/dL (0.7-1.2) H Estimat Glomerular Filtration Rate 6.8 mL/min (>60) Glucose Level 250 mg/dL (74-106) #H Calcium Level 7.8 mg/dL (8.6-10.2) L Random Vancomycin Level Pending Hepatitis A IgM Antibody Pending Hepatitis B Surface Antigen Pending Hepatitis B Core IgM Antibody Pending Hepatitis C Antibody Pending Microbiology Date/Time Source Procedure Growth Status 11/10/16 17:30 Blood Blood Culture - Preliminary NO GROWTH AFTER 24 HOURS Resulted PHYSICAL EXAM: DERMATOLOGICAL: Right heel with large ulcer and necrotic tissue at the base. The wound probes to subcutaneous tissue. No purulence malodor or surrounding erythema or edema. Patient also has areas of hyperkeratosis at the right lateral 5th metatarsal head and base of the 5th metatarsal. Patient also has a smaller left heel ulcer which probes to subcutaneous tissue and has a fibrotic wound base. Multiple areas of dry stable eschars at bilateral anterior knees NEUROLOGICAL: Decreased sensation to light touch VASCULAR: Left foot pedal pulses are palpable. However, right foot pedal pulses are difficult to palpate MUSCULOSKELETAL: Left foot toes and right foot 2nd toe has been amputated . Assessment/Plan ASSESSMENT: Chronic bilateral heel ulcers, right worse than left T2DM Peripheral vascular disease Peripheral neuropathy Left foot 1-5 and right 2nd toe amputation PLAN: - Ordered bilateral foot xrays - Ordered vascular studies - Continue antibiotics per infectious disease specialist recommendations - Start aggressive offloading of heels - Continue wound care - Obtain cultures from right heel Channing Ordonez DPM Nov 11, 2016 23:56
[2016-11-12] VITALS: BP 133/65
[2016-11-12] MEDS: Cefepime HCl 1 GM in D5W 55 ML IVPB SCH (01:23)
--- NOTE | 2016-11-12 02:15 | History and Physical Report ---
DATE OF ADMISSION: 11/10/2016 CHIEF COMPLAINT: The patient is a 61-year-old, male, who presents with chief complaint of missed dialysis and right foot ulcer. HISTORY OF PRESENT ILLNESS: The patient is to follow up as an outpatient by Dr. Fenton. The patient has been followed recently by Dr. Conway. The patient has a history of a right diabetic foot ulcer. The patient has been on intravenous antibiotics for approximately 30 days. Much of the history and physical is obtained from the patient's over the telephone. Currently, the patient is on home dialysis 5 times weekly. The patient's last dialysis was 11/07/2016. Apparently, the patient's home dialysis unit is not functioning. The patient presented to [place] emergency room complaining of right diabetic foot ulcer. The patient's states the patient has also been somewhat altered. The patient had some posturing in the emergency room, which may have been a seizure. The patient was admitted with chief complaint of hemodialysis, right diabetic foot ulcer and altered mental status versus seizure disorder. PAST MEDICAL HISTORY: Significant for: 1. History of transient ischemic attack. 2. Arteriovenous malformation. 3. End-stage renal disease. 4. Hypertension. 5. Diabetes type 2. 6. Human immunodeficiency virus. 7. Hepatitis C. 8. Peripheral vascular disease. 9. History of cataracts. 10. History of left foot ulcer. PAST SURGICAL HISTORY: Significant for: 1. Left foot partial amputation. 2. Multiple surgeries on the left foot beginning in 03/2005. 3. Atrial septal defect patch. 4. Left arteriovenous graft for dialysis. 5. Right toe amputation in 04/2016. CURRENT MEDICATIONS: 1. Acyclovir 400 mg one tablet p.o. daily. 2. Ammonium acetate 365 g twice a day. 3. Calcitriol 0.5 mcg p.o. daily. 4. Cinacalcet 30 mg one tablet p.o. daily. 5. Clonidine 0.1 mg one tablet p.o. q.8 hours p.r.n. 6. Plavix 75 mg one tablet p.o. daily. 7. Emtriva 200 mg one tablet p.o. every Saturday and Saturday. 8. Epogen 10,000 units subcutaneously three times weekly. 9. Vitamin D 50,000 units orally twice monthly. 10. Folic acid/vitamin-B complex (Renagel) 1 mg p.o. daily. 11. Atrovent metered-dose inhaler two puffs p.o. q.6 hours p.r.n. 12. Ativan 0.5 mg one tablet p.o. q.6 hours p.r.n. 13. Toprol-XL 25 mg one tablet p.o. daily. 14. Ketorolac 120 mg one tablet p.o. 3 times daily. 15. Aricept two tablets p.o. twice daily. 16. Oxycodone 5 mg one tablet p.o. q.4 hours p.r.n. 17. Zosyn day #. 18. Renagel 4 tablets p.o. 3 times daily. 19. Restoril 15 mg one tablet p.o. at bedtime. 20. 300 mg one tablet p.o. daily. 21. Vancomycin day #. ALLERGIES: 1. Bactrim. 2. Heparin. 3. Ambien. 4. Meropenem. 5. Pork. 6. Prednisone. SOCIAL HISTORY: The patient is . The patient denies tobacco or alcohol use. REVIEW OF SYSTEMS: Constitutional: The patient denies weight loss or weight gain. The patient denies fevers or chills. HEENT: The patient denies ear or throat pain. The patient denies headache. Cardiovascular: The patient denies palpitations or chest pain. Chest: The patient denies wheeze or shortness of breath. Abdomen: The patient denies nausea, vomiting, diarrhea, or constipation. Genitourinary: The patient denies dysuria or increased frequency of urination. Neuromuscular: The patient complains of possible seizure as above. The patient denies generalized weakness. PHYSICAL EXAMINATION: VITAL SIGNS: Temperature 97.5 degrees, respirations 19, pulse 61 to 62, and blood pressure 111/40. GENERAL: The patient is a well-developed, well-nourished, male, in no apparent distress. HEENT: Eyes, pupils are equal and responsive to light and accommodation. Extraocular movements are intact. NECK: Supple without lymphadenopathy. CHEST: Lungs are clear to auscultation bilaterally without wheeze or rales. CARDIOVASCULAR: Regular rhythm and rate. S1 and S2 are normal without murmurs, rubs, or gallops. ABDOMEN: Soft, nontender, and nondistended with positive bowel sounds. No evidence of hepatosplenomegaly. Currently, no rebound or guarding noted. EXTREMITIES: Negative for clubbing, cyanosis, or edema. The right foot is bandaged. NEUROLOGIC: Cranial nerves II through XII are grossly intact without focal deficits. Motor strength is in 5/5 bilaterally. Deep tendon reflexes are 2+ plantar. LABORATORY STUDIES: WBC is 6.2, hemoglobin 12.2, hematocrit 41.2, and platelets 251,000. Sodium 138, potassium 5.2, chloride 97, CO2 20, BUN 76, creatinine 11.6, and glucose 229. Troponin is less than 0.3. ASSESSMENT: This is a 61-year-old male. 1. Altered mental status. 2. Hypoglycemia. 3. Right diabetic foot ulcer. 4. Seizure disorder. 5. Hypertension. 6. Diabetes type 2. 7. Cerebrovascular disease. 8. Peripheral vascular disease. 9. Human immunodeficiency virus. 10. Hepatitis C. TREATMENT: 1. Hypoglycemia. The patient has been started on D5 W. Accu-Cheks to be performed before meals and at bedtime. 2. Altered mental status may be secondary to hypoglycemia, as above. 3. Right diabetic foot ulcer. A Podiatry consultation was obtained with Dr. Blackburn. Infectious Disease consultation was obtained with Dr. Conway. The patient will be continued on Zosyn and vancomycin for now. We will follow recommendations of Podiatry and Infectious Disease. 4. Seizure may be secondary to hypoglycemia, as above. 5. Hypertension. Continue Toprol-XL as above. 6. Diabetes type 2. A regular insulin sliding scale has been instituted. 7. Cerebrovascular disease. 8. Peripheral vascular disease. 9. Human immunodeficiency virus. Continue HAART therapy as above. 10. Hepatitis C. Didier Thornton M.D. DR: DAGMAR JOB#: [id number] CC:
[2016-11-12] MEDS: HYDROmorphone 1mg/ml Carpuject IVP PRN ×5 (02:18→15:11)
[2016-11-12 04:00] VITALS: BP 136/35
--- NOTE | 2016-11-12 05:15 | Consultation ---
DATE OF CONSULTATION: 11/11/2016 REFERRING PHYSICIAN: Didier Thornton M.D. CHIEF COMPLAINT AND REASON FOR CONSULTATION: End-stage renal disease. HISTORY OF PRESENT ILLNESS: The patient has been on hemodialysis for about 15 years under another physician, he lives in [facility]. He has multiple medical problems. He apparently presented with some hypoglycemia and weakness. Also he has been unable to receive dialysis as he gets home dialysis and his machine is broken. He apparently had some altered mental status, some movement disorder, possible seizure from low blood sugar in the emergency room. The patient has been receiving intravenous antibiotics, apparently for osteomyelitis of the heel. He also has had prior cardiac problems with ASD and apparently a patch closure this in approximately 2004 and he had a transesophageal echocardiogram done elsewhere in the spring with aortic and mitral valve problems and cardiac surgery was recommended, but apparently was not in good shape for that and this has not yet been arranged. The patient has had diabetes for more than 30 years. He also has HIV. PAST SURGICAL HISTORY: Include AV fistula, left arm. Dialysis catheter, ASD patch, and amputation of the toes on the right foot. MEDICATIONS: Home medications per the list that the brought in include acyclovir, ammonium lactate cream, calcitriol, chlorhexidine, cinacalcet, Catapres, Plavix, Emtriva, Epogen, vitamin D2, Renal Caps, Atrovent inhaler, lorazepam, metoprolol, Starlix, Viracept, oxycodone, Zosyn, vancomycin, povidone-iodine, propylene glycol, sevelamer, temazepam, and tenofovir. ALLERGIES: Apparently to heparin, zolpidem, sulfa, meropenem. HABITS: He smoked as a teen and quit. No alcohol or drugs. He has been for 42 years. He is disabled. SYSTEM REVIEW: HEAD EYES, EARS, NOSE, AND THROAT: He is not aware of any diabetic retinopathy. Hearing is good. ENDOCRINE: Long-standing diabetes. No known thyroid disease. PULMONARY: He has been using inhalers, but he is not aware of any asthma or TB. CARDIAC: History of valvular heart disease as above. He has not had any overt CHF or angina that he is aware of. He has peripheral vascular disease. GASTROINTESTINAL: No ulcers or GI bleeding. GENITOURINARY: No dysuria or hematuria. He is aneuric at this time. NEUROLOGIC: History of peripheral neuropathy. No strokes. HEMATOLOGIC: History of HHT. 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 PHYSICAL EXAMINATION: GENERAL: The patient is alert man, lying in bed, in no acute distress. VITAL SIGNS: Temperature 97.5 degrees, pulse 62, respirations 19, blood pressure 111/40, and O2 saturation 97% on room air. HEAD EYES, EARS, NOSE, AND THROAT: Sclerae are nonicteric. Ocular motions intact in all directions. Oral mucosa moist. NECK: No adenopathy or thyroid enlargement. LUNGS: Clear. HEART: Regular rhythm. I hear no murmur. ABDOMEN: Soft. No organomegaly or masses. EXTREMITIES: No edema. Both feet are wrapped in a dry dressing. There is some atrophy of the leg muscles. He has amputation of toes of the right foot. NEUROLOGIC: He is alert and oriented. Cranial nerves are intact. PERTINENT LABORATORIES: White count 5000, hemoglobin of 11.2, and platelets 210,000. Sodium 138, potassium 5.2 and repeat 5.9, BUN 85, and creatinine 12.2. IMPRESSION: 1. Episode of hypoglycemia. 2. End-stage renal disease. 3. Hyperkalemia. 4. Chronic osteomyelitis of the heel. 5. History of valvular heart disease. 6. Peripheral neuropathy. 7. Peripheral vascular disease. PLAN: The patient will receive dialysis in the hospital serially, watching closely in view of his comorbidities. He will be reassessed for his wound treatment, antibiotics, and glucose management. Thank you so much. Arash Bianchi M.D. DR: EN JOB#: [id number] CC:
[2016-11-12] MEDS: Renvela 800mg Pkt NG SCH ×3 (05:58→16:19)
[2016-11-12 07:55] LABS: BASOPHILS % (AUTO) 1.3 % (0.0-2.0); EOSINOPHILS % (AUTO) 6.5 % (0.0-3.0); LYMPHOCYTES % (AUTO) 29.8 % (20.0-45.0); MEAN CORPUSCULAR HEMOGLOBIN 27.1 PG (27.0-31.0); MEAN CORPUSCULAR HGB CONC 30.5 G/DL (32.0-36.0); MEAN CORPUSCULAR VOLUME 89 FL (80-99); MEAN PLATELET VOLUME 7.1 FL (6.5-10.1); MONOCYTES % (AUTO) 13.1 % (1.0-10.0); NEUTROPHILS % (AUTO) 49.3 % (45.0-75.0); PLATELET COUNT 200 K/UL (150-450); RED BLOOD COUNT 4.11 M/UL (4.70-6.10); WHITE BLOOD COUNT 4.9 K/UL (4.8-10.8)
[2016-11-12 08:03] VITALS: BP 117/52
[2016-11-12 08:12] LABS: CALCIUM 7.8 mg/dL (8.6-10.2); CREATININE 9.5 mg/dL (0.7-1.2); GLOMERULAR FILTRATION RATE 6.8 mL/min (>60); POTASSIUM 5.2 mEQ/L (3.4-4.9)
--- NOTE | 2016-11-12 08:30 | Consultation ---
DATE OF CONSULTATION: 11/11/2016 INFECTIOUS DISEASES CONSULTATION ATTENDING PHYSICIAN: Didier Thornton M.D. REASON FOR CONSULTATION: Right heel and foot osteo, infected wounds, gangrene, necrosis, and antibiotic management. CHIEF COMPLAINT: The patient's chief complaint coming in to the hospital is hypoglycemia, altered mental status, questionable seizures, renal failure requiring hemodialysis and CHF. HISTORY OF PRESENT ILLNESS: This is a very pleasant 61-year-old male, who has history of left foot osteomyelitis and treatment for that including debridement and vascular surgery. The patient now was being treated in the outpatient setting. He came to my office because of osteomyelitis of the right foot and healed to my recollection. I have the cultures in my office and last cultures required treatment with vancomycin and Zosyn. It seemed like his wound did not improved and also comes to [facility] because of necrotic foot including heels and areas of the foot and infected wounds. Infectious Disease consultation requested for further antibiotic management. I placed the patient on vancomycin, amikacin, cefepime, and Flagyl yesterday. The patient will be seen by Podiatry. MAR was noted. Orders were noted. Notes were reviewed. Case was discussed with Dr. Thornton and also Dr. Jorge A Chinchilla in the outpatient setting, and also the patient and the patient's . PAST MEDICAL HISTORY: The patient's past medical history includes the history of the following: The patient has a past medical history of osteomyelitis and infected wounds of the left foot, status post treatment with Vascular Surgery treatment and debridement. He has history of peripheral vascular disease, history of end-stage renal disease, on hemodialysis. He has history of anemia. He has a history of hypertension, history of HIV, and hepatitis C. He has been lot of therapy. He has a history of , CHF, TIA, ASD, early mentioned history of osteomyelitis and hypertension. He has history of diabetes, end-stage renal disease, on hemodialysis, history of seizures, and weakness. MEDICATIONS: Upon reviewing the MAR, he is on the following medications. He is on Restoril, Sensipar, Plavix, Toprol, Renvela, Catapres, and Emtriva. He is on antiretroviral therapy as an outpatient. I will discuss with family oxycodone, morphine, Dilaudid, vancomycin, amikacin, Flagyl and cefepime. ALLERGIES: Heparin, meropenem, sulfa, and Zolpidem FAMILY HISTORY: Noncontributory. No mention of exposure to tuberculosis. SOCIAL HISTORY: Negative for smoking, alcohol or drug abuse. REVIEW OF SYSTEMS: Constitutional: He denies fevers. He came in with altered mental status, questionable seizures, and discussing with . He was hypoglycemic. No fever, chills, or night sweats. No mention of weight loss. Head And Neck: No head pain or neck pain. No neck stiffness. No thrush or dysphagia. Cardiac: No chest pain or palpitations. Gastrointestinal: No nausea, vomiting, or diarrhea. Genitourinary: He has hemodialysis. No Jordan. Pulmonary: No congestion. No hemoptysis or secretions. Skin: No rash or itching. Extremities: pain. He has right foot wounds, osteomyelitis, and gangrene. Neurologic: No seizures. PHYSICAL EXAMINATION: GENERAL: Alert and responsive. He is oriented x3. He came in with altered mental status. VITAL SIGNS: Temperature is 97.5, pulse rate 62, respiratory rate 19, blood pressure 111/40, and saturation 97%. HEAD AND NECK: Oral exam, no thrush. Eye exam, no icterus. Normocephalic. No facial droop. No neck stiffness. HEART: Regular. No rubs, gallops, or murmur. LUNGS: Clear bilaterally. Occasional rhonchi or crackles. ABDOMEN: Soft. Positive bowel sounds. Nontender. MUSCULOSKELETAL: No effusions, contractures, or septic arthritis. Lower extremity examination, he has no leg swelling left leg, no evidence of gangrene. Right foot has necrotic wounds of foot and heel, nothing really to culture, it is mostly necrotic tissue. SKIN: No rash. No dermatitis. RECTAL: Deferred. GENITOURINARY: No Jordan. LINES: Line sites is without phlebitis. NEUROLOGIC: Intact. Nonfocal. LABORATORY AND DIAGNOSTIC DATA: Laboratory data is as follows: Creatinine is 2.2. LFTs were noted. Glucose initially was 29. White count 5.0, hemoglobin 11.0, and platelet count is 210,000. Toxicology, vancomycin was 30.9 today it is 20.4. Cultures are pending. Chest x-ray showed pulmonary vascular congestion, cardiomegaly, and atelectasis. ASSESSMENT AND PLAN: 1. The patient has right heel and foot osteomyelitis and also necrosis and infected wounds of the foot. 2. The patient was on vancomycin and Zosyn as an outpatient. He is unclear of the two pathogens involved here because the cultures were varying. The most recent recent cultures of blood revealed gram negative and that is why he is on the vancomycin and Zosyn. He was seen by detacker and I believe as an outpatient also. At this time, I will continue on vancomycin and Zosyn. I will get Podiatry evaluation and possible debridement. The patient may need further Vascular Surgery workup and Vascular Surgery evaluation. Continue vancomycin, cefepime, Flagyl, and amikacin for now. Check blood cultures were done. It is difficult to culture the patient's wounds. They are necrotic and they will be just colonized as we culture at this time. Check followup labs. Watch clinically. Continue treatment of antibiotics and for right foot with healed necrotic wounds and osteomyelitis. 3. End-stage renal disease, on hemodialysis. 4. Hypertension and diabetes. 5. Human immunodeficiency virus. Continue antiretroviral treatment at this time. The patient could not find out which one he is on. 6. Blood sugar and blood pressure control for diabetes and hypertension, per primary. 7. Anemia. 8. Hemodialysis per Renal. 9. Transient ischemic attack. 10. Congestive heart failure. 11. History of osteomyelitis of left foot. 12. Hepatis C. 13. History of seizure. 14. Weakness. 15. Past medical history noted. 16. Allergies to Heparin, meropenem, sulfa, and Zolpidem. 17. MAR was noted. 18. Case was discussed with RN. 19. Social history is negative. 20. Family history is noncontributory. 21. Case discussed with Dr. Thornton. 22. Continue treatment per primary consultants. 23. Wound care protocol. 24. Podiatry followup. 25. Continue Vascular Surgery evaluation. 26. Hypoglycemia treatment per primary. 27. . Yesenia Conway M.D. DR: FELICITAS JOB#: [id number] CC:
[2016-11-12] MEDS: Sensipar 30mg Tab ORAL SCH (08:59)
[2016-11-12] MEDS: [UNRECOGNIZED DRUG - OTHER] ORAL SCH ×2 (09:00→21:22)
[2016-11-12] MEDS: Metoprolol Succinate XL 25mg tab ORAL SCH (09:04)
[2016-11-12] MEDS: metroNIDAZOLE 500mg 100 ML IVPB SCH ×2 (09:11)
[2016-11-12 11:29] VITALS: BP 123/59
--- NOTE | 2016-11-12 11:53 | Internal Med Progress Note ---
Subjective Date of Service: Nov 12, 2016 Physician Name Didier Jimenez Attending Physician Didier Jimenez Current Medications Medications (Trade) Dose Ordered Sig/Zohaib Route PRN Reason Start Time Stop Time Status Last Admin Dose Admin Amikacin Protocol (Amikacin pharmacy to dose) 1 ea DAILY PRN MISC Per rx protocol 11/11/16 07:00 12/11/16 06:59 Amikacin Sulfate/ Sodium Chloride (Amikin/Sodium Chloride) 57 ml @ 110.799 mls/hr ONCE ONCE IV 11/12/16 18:00 11/12/16 18:30 Cefepime HCl 1 gm/ Dextrose 55 ml @ 110 mls/hr Q24H IVPB 11/11/16 01:00 11/18/16 00:59 11/12/16 01:23 Cinacalcet (Sensipar) 30 mg DAILY ORAL 11/11/16 12:00 12/11/16 11:59 11/12/16 08:59 Clonidine HCl (Catapres) 0.1 mg Q8H PRN ORAL SBP > 160 11/11/16 10:30 12/11/16 10:29 Clopidogrel Bisulfate (Plavix) 75 mg DAILY ORAL 11/11/16 12:00 12/11/16 11:59 11/12/16 08:59 Hydromorphone HCl (Dilaudid) 1 mg Q4H PRN IVP For Pain 11/11/16 10:15 11/18/16 10:14 11/12/16 10:41 Metoprolol Succinate (Toprol XL) 25 mg DAILY ORAL 11/11/16 12:00 12/11/16 11:59 11/12/16 09:04 Metronidazole (Flagyl) 100 ml @ 100 mls/hr Q8H IVPB 11/11/16 00:00 11/18/16 00:00 11/12/16 09:11 Oxycodone HCl (Roxicodone) 5 mg Q4H PRN ORAL For Pain 4-6 11/11/16 10:30 11/18/16 10:29 Patient Own Medication (Patient's Own Med) 1 ea POSTHD@WED,SAT ORAL 11/14/16 18:00 12/14/16 17:59 Patient Own Medication (Patient's Own Med) 1 ea QWEEK ORAL 11/17/16 18:00 12/17/16 17:59 Patient Own Medication (Patient's Own Med) 2 ea BID ORAL 11/11/16 18:00 12/11/16 17:59 Sevelamer Carbonate 3200 mg 3,200 mg TIAC NG 11/11/16 11:30 12/11/16 11:29 11/12/16 05:58 Sodium Chloride 1,000 ml @ 500 mls/hr Q2H PRN IVLG sbp<90 during hd 11/11/16 21:48 12/11/16 21:47 Sodium Chloride 1,000 ml @ 500 mls/hr Q2H PRN IVLG sbp<90 during hd 11/12/16 10:44 12/12/16 10:43 Temazepam (Restoril) 15 mg BEDTIME ORAL 11/11/16 21:00 11/18/16 20:59 11/11/16 21:00 Vancomycin HCl (Vanco rx to dose) 1 ea DAILY PRN MISC Per rx protocol 11/11/16 07:00 12/11/16 06:59 Allergies: Coded Allergies: HEPARIN (Verified Allergy, Severe, low platelets, 06/11/14) SULFA (SULFONAMIDE ANTIBIOTICS) (Verified Allergy, Severe, nephro toxic, ) ZOLPIDEM (Verified Allergy, Unknown, 05/03/16) MEROPENEM (Verified Adverse Reaction, Intermediate, 04/01/16) Nausea and vomiting Uncoded Allergies: pork products (Allergy, Severe, rashes, 06/11/14) ROS Limited/Unobtainable: No Constitutional: Reports: no symptoms HEENT: Reports: no symptoms Cardiovascular: Reports: no symptoms Respiratory: Reports: no symptoms Gastrointestinal/Abdominal: Reports: no symptoms Genitourinary: Reports: no symptoms Neurologic/Psychiatric: Reports: no symptoms Subjective 61 YO M admitted with shortness of breath and right diabetic foot ulcer. Await podiatry consult. Objective Last Vital Signs Date Time Temp Pulse Resp B/P Pulse Ox O2 Delivery O2 Flow Rate FiO2 11/12/16 11:29 98.1 74 20 123/59 98 Room Air General Appearance: WD/WN, no apparent distress, alert EENT: PERRL/EOMI, normal ENT inspection, TMs normal Neck: non-tender, normal alignment, supple Cardiovascular: normal peripheral pulses, normal rate, regular rhythm, no gallop/murmur, no JVD Respiratory/Chest: chest wall non-tender, lungs clear, normal breath sounds, no respiratory distress, no accessory muscle use Abdomen: normal bowel sounds, non tender, soft, no organomegaly, no mass Extremities: normal range of motion 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: 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 II-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 grossly normal, no motor/sensory deficits Skin: normal pigmentation, warm/dry Laboratory Tests Test 11/12/16 07:40 White Blood Count 4.9 K/UL (4.8-10.8) Red Blood Count 4.11 M/UL (4.70-6.10) L Hemoglobin 11.1 G/DL (14.2-18.0) L Hematocrit 36.5 % (42.0-52.0) L Mean Corpuscular Volume 89 FL (80-99) Mean Corpuscular Hemoglobin 27.1 PG (27.0-31.0) Mean Corpuscular Hemoglobin Concent 30.5 G/DL (32.0-36.0) L Red Cell Distribution Width 22.0 % (11.6-14.8) H Platelet Count 200 K/UL (150-450) Mean Platelet Volume 7.1 FL (6.5-10.1) Neutrophils (%) (Auto) 49.3 % (45.0-75.0) Lymphocytes (%) (Auto) 29.8 % (20.0-45.0) Monocytes (%) (Auto) 13.1 % (1.0-10.0) H Eosinophils (%) (Auto) 6.5 % (0.0-3.0) H Basophils (%) (Auto) 1.3 % (0.0-2.0) Sodium Level 134 mEQ/L (135-145) L Potassium Level 5.2 mEQ/L (3.4-4.9) H Chloride Level 93 mEQ/L (98-107) L Carbon Dioxide Level 24 mEQ/L (20-30) Anion Gap 17 (5-15) H Blood Urea Nitrogen 58 mg/dL (7-23) #H Creatinine 9.5 mg/dL (0.7-1.2) H Estimat Glomerular Filtration Rate 6.8 mL/min (>60) Glucose Level 250 mg/dL (74-106) #H Calcium Level 7.8 mg/dL (8.6-10.2) L Random Vancomycin Level 26.2 ug/mL Hepatitis A IgM Antibody Pending Hepatitis B Surface Antigen Pending Hepatitis B Core IgM Antibody Pending Hepatitis C Antibody Pending Microbiology Date/Time Source Procedure Growth Status 11/10/16 17:30 Blood Blood Culture - Preliminary NO GROWTH AFTER 24 HOURS Resulted 11/10/16 16:55 Blood Blood Culture - Preliminary NO GROWTH AFTER 24 HOURS Resulted Intake and Output 11/11/16 11/12/16 19:00 07:00 Intake Total 200 ml 200 ml Output Total 0 ml 3000 ml Balance 200 ml -2800 ml Intake Oral 200 ml 200 ml Output Urine Total 0 ml 0 ml Hemodialysis UF 3000 ml # Bowel Movements 3 1 Assessment/Plan Problem List: (1) Altered mental status (2) Shortness of breath (3) Hypoglycemia (4) Hepatitis C (5) Diabetic foot ulcer Assessment & Plan: H/O osteomyelitis. Await podiatry consult. cont vanco, cefepime, amikacin and flagyl per ID (6) HIV disease Assessment & Plan: Continue HAART per ID (7) HTN (hypertension) Assessment & Plan: Continue metoprolol (8) Diabetes Assessment & Plan: Hypoglycemic on arrival. (9) ESRD (end stage renal disease) Assessment & Plan: See nephrology note-Dr Bianchi Status: unchanged DIDIER JIMENEZ Nov 12, 2016 11:53
--- NOTE | 2016-11-12 12:34 | Consultation ---
History of Present Illness General Date patient seen: Nov 12, 2016 Chief Complaint: Skin Rash/Abscess Reason for Consultation: inpatient management Present Illness HPI 61 year old male with hx of HIV, DM, ESRF on home dialysis, osteomyelitis, cardiac valvular disease requiring surgery, on home IV abx, presented for worsening of wound on his heel. he was hypoglycemic in ER and CXR showed bilateral pulmonary edema and cardiomegaly. Allergies: Coded Allergies: HEPARIN (Verified Allergy, Severe, low platelets, 06/11/14) SULFA (SULFONAMIDE ANTIBIOTICS) (Verified Allergy, Severe, nephro toxic, ) ZOLPIDEM (Verified Allergy, Unknown, 05/03/16) MEROPENEM (Verified Adverse Reaction, Intermediate, 04/01/16) Nausea and vomiting Uncoded Allergies: pork products (Allergy, Severe, rashes, 06/11/14) Medication History Scheduled Acyclovir* (Acyclovir*), 800 MG ORAL DAILY, (Reported) Ammonium Lactate (Ammonium Lactate), 385 GM TP BID, (Reported) Cinacalcet* (Sensipar*), 30 MG ORAL DAILY, (Reported) Clopidogrel Bisulfate* (Plavix*), 75 MG ORAL DAILY, (Reported) Epoetin Jeremiah (Epogen), 10,000 UNIT SUBQ 3XW, (Reported) Epoetin Jeremiah (Epogen), 10,000 UNIT SUBQ 3XW, (Reported) Ergocalciferol (Vitamin D2)* (Vitamin D*), 50,000 UNIT ORAL twice monthly, ( Reported) Folic Acid/Vitamin B Comp W-C (Renal Caps Softgel), 1 MG PO DAILY, (Reported) Lorazepam* (Lorazepam*), 0.5 MG ORAL EVERY 6 HOURS, (Reported) Metoprolol Succinate* (Toprol Xl*), 25 MG ORAL DAILY, (Reported) Nateglinide* (Starlix*), 120 MG ORAL THREE TIMES A DAY, (Reported) Nelfinavir Mesylate (Viracept), 2 TAB PO BID, (Reported) Wczhkytouson-Nmzt-Scqgucfs,Iso (Zosyn 2.25 Gm Pre-Mix Bag), 2.25 GM IVPB EVERY 8 HOURS, (Reported) Polyvinyl Alcohol/Povidone/Pf (Refresh Classic Eye Drops), 1 EACH OP DAILY, ( Reported) Propylene Glycol/Peg 400/Pf (Systane 0.3-0.4% Eye Drops), 1 EACH OP FOUR TIMES A DAY, (Reported) Sevelamer Hcl (Renagel), 4 TAB ORAL TID, (Reported) Temazepam (Temazepam*), 15 MG ORAL BEDTIME, (Reported) Tenofovir Disoproxil Fumarate* (Viread*), 300 MG ORAL q sat, (Reported) Vancomycin/0.9% Sod Chloride (Vancomycin-0.9% Nacl 1 G/250), 1 GM IV EVERY OTHER DAY, (Reported) Scheduled PRN Clonidine Hcl* (Catapres*), 0.1 MG ORAL EVERY 8 HOURS PRN for For High Blood Pressure, (Reported) Oxycodone Hcl Ir* (Roxicodone Ir*), 5 MG ORAL Q4H PRN for For Pain, (Reported) Miscellaneous Medications Calcitriol (Calcitriol), 0.5 MCG PO, (Reported) Chlorhexidine Gluconate (Peridex), 15 ML MM, (Reported) Emtricitabine* (Emtriva*), 200 MG ORAL, (Reported) Ipratropium [place] (Atrovent Hfa), 12.9 GM IH, (Reported) Discontinued Medications Acetaminophen (Acetaminophen), 650 MG ORAL Q4HR PRN for Prn Headache/Temp > 101, (Reported) Discontinued Reason: Pt stopped taking med Diphenhydramine Hcl (Diphenhydramine Hcl), 50 MG IJ EVERY 6 HOURS, (Reported) Discontinued Reason: Pt stopped taking med Docusate Sodium* (Colace*), 100 MG ORAL TWICE A DAY, (Reported) Discontinued Reason: Pt stopped taking med Doxercalciferol (Hectorol), 2.5 MCG PO DAILY, (Reported) Discontinued Reason: MD discontinued med Estrogens,Conjugated (Premarin), 0.625 MG ORAL DAILY, (Reported) Discontinued Reason: Pt stopped taking med Lactobacillus Acidophilus (Probiotic), 1 EACH PO, (Reported) Discontinued Reason: Pt stopped taking med Lanthanum Carbonate (Fosrenol), 1,500 MG PO TID, (Reported) Discontinued Reason: Pt stopped taking med Lorazepam* (Lorazepam*), 1 MG ORAL EVERY 6 HOURS PRN for For Anxiety, (Reported) Discontinued Reason: Prescription changed Minoxidil* (Loniten*), 2.5 MG PO Q12HR, (Reported) Discontinued Reason: Pt stopped taking med Nelfinavir Mesylate* (Viracept*), 625 MG ORAL BIDAC, (Reported) Discontinued Reason: Pt stopped taking med Nifedipine Xl* (Procardia Xl*), 60 MG ORAL DAILY, (Reported) Discontinued Reason: Pt stopped taking med Ondansetron* (Zofran*), 4 MG IV Q6H PRN for Nausea & Vomiting, (Reported) Discontinued Reason: Pt stopped taking med Oxycodone Hcl/Acetaminophen 10-325* (Oxycodone-Acetaminophen 10-325*), 1 TAB ORAL Q4H PRN for Breakthrough Pain, (Reported) Discontinued Reason: Prescription changed Svjigvmcrdpu-Ztoh-Nnvvddck,Iso (Zosyn 3.375 Gm Pre Mix-Bag), 2.25 GM IVPB EVERY 8 HOURS, (Reported) Discontinued Reason: Prescription changed Polyethylene Glycol 3350* (Miralax*), 17 GM ORAL DAILY PRN for Constipation, ( Reported) Discontinued Reason: Pt stopped taking med Propylene Glycol/Peg 400 (Systane 0.3-0.4% Eye Drops), 15 ML OP, (Reported) Discontinued Reason: Pt stopped taking med Ranitidine Hcl* (Zantac*), 150 MG ORAL DAILY, (Reported) Discontinued Reason: MD discontinued med Vancomycin Hcl/D5w (Vancomycin-D5w 1 G/250 Ml), 1 GM IVPB ONCE A WEEK, (Reported ) Discontinued Reason: Prescription changed Patient History Healthcare decision maker Resuscitation status Full Code Advanced Directive on File No Past Medical/Surgical History Past Medical/Surgical History: (1) Hepatitis C (2) ESRD (end stage renal disease) (3) HIV disease (4) Diabetes (5) Vascular disease Review of Systems All Other Systems: negative except mentioned in HPI Physical Exam Lines, tubes and drains: peripheral HEENT: normocephalic, atraumatic Neck: non-tender, normal alignment, supple Respiratory/Chest: chest wall non-tender, rhonchi - left, rhonchi - right Cardiovascular/Chest: normal peripheral pulses, normal rate Abdomen: normal bowel sounds, non tender Genitourinary/Rectal: normal genital exam Extremities: normal range of motion, non-tender, other - see pictures Last 24 Hour Vital Signs Date Time Temp Pulse Resp B/P Pulse Ox O2 Delivery O2 Flow Rate FiO2 11/12/16 11:29 98.1 74 20 123/59 98 Room Air 11/12/16 09:04 67 112/60 11/12/16 08:03 98.2 69 20 117/52 96 Room Air 11/12/16 06:38 98.8 11/12/16 04:00 97.7 67 18 136/35 100 Room Air 11/12/16 04:00 67 11/12/16 00:00 72 11/12/16 00:00 97.7 66 20 133/65 100 Room Air 11/11/16 21:00 Room Air 11/11/16 20:00 97.9 72 20 147/50 99 Room Air 11/11/16 20:00 73 11/11/16 17:30 Room Air 11/11/16 16:00 65 Intake and Output 11/11/16 11/12/16 19:00 07:00 Intake Total 200 ml 200 ml Output Total 0 ml 3000 ml Balance 200 ml -2800 ml Intake Oral 200 ml 200 ml Output Urine Total 0 ml 0 ml Hemodialysis UF 3000 ml # Bowel Movements 3 1 Laboratory Tests Test 11/12/16 07:40 White Blood Count 4.9 K/UL (4.8-10.8) Red Blood Count 4.11 M/UL (4.70-6.10) L Hemoglobin 11.1 G/DL (14.2-18.0) L Hematocrit 36.5 % (42.0-52.0) L Mean Corpuscular Volume 89 FL (80-99) Mean Corpuscular Hemoglobin 27.1 PG (27.0-31.0) Mean Corpuscular Hemoglobin Concent 30.5 G/DL (32.0-36.0) L Red Cell Distribution Width 22.0 % (11.6-14.8) H Platelet Count 200 K/UL (150-450) Mean Platelet Volume 7.1 FL (6.5-10.1) Neutrophils (%) (Auto) 49.3 % (45.0-75.0) Lymphocytes (%) (Auto) 29.8 % (20.0-45.0) Monocytes (%) (Auto) 13.1 % (1.0-10.0) H Eosinophils (%) (Auto) 6.5 % (0.0-3.0) H Basophils (%) (Auto) 1.3 % (0.0-2.0) Sodium Level 134 mEQ/L (135-145) L Potassium Level 5.2 mEQ/L (3.4-4.9) H Chloride Level 93 mEQ/L (98-107) L Carbon Dioxide Level 24 mEQ/L (20-30) Anion Gap 17 (5-15) H Blood Urea Nitrogen 58 mg/dL (7-23) #H Creatinine 9.5 mg/dL (0.7-1.2) H Estimat Glomerular Filtration Rate 6.8 mL/min (>60) Glucose Level 250 mg/dL (74-106) #H Calcium Level 7.8 mg/dL (8.6-10.2) L Random Vancomycin Level 26.2 ug/mL Hepatitis A IgM Antibody Pending Hepatitis B Surface Antigen Pending Hepatitis B Core IgM Antibody Pending Hepatitis C Antibody Pending Height (Feet): 6 Height (Inches): 8.00 Weight (Pounds): 170 Medications Current Medications Medications (Trade) Dose Ordered Sig/Zohaib Route PRN Reason Start Time Stop Time Status Last Admin Dose Admin Amikacin Protocol (Amikacin pharmacy to dose) 1 ea DAILY PRN MISC Per rx protocol 11/11/16 07:00 12/11/16 06:59 Amikacin Sulfate/ Sodium Chloride (Amikin/Sodium Chloride) 57 ml @ 110.799 mls/hr ONCE ONCE IV 11/12/16 18:00 11/12/16 18:30 Cefepime HCl 1 gm/ Dextrose 55 ml @ 110 mls/hr Q24H IVPB 11/11/16 01:00 11/18/16 00:59 11/12/16 01:23 Cinacalcet (Sensipar) 30 mg DAILY ORAL 11/11/16 12:00 12/11/16 11:59 11/12/16 08:59 Clonidine HCl (Catapres) 0.1 mg Q8H PRN ORAL SBP > 160 11/11/16 10:30 12/11/16 10:29 Clopidogrel Bisulfate (Plavix) 75 mg DAILY ORAL 11/11/16 12:00 12/11/16 11:59 11/12/16 08:59 Hydromorphone HCl (Dilaudid) 1 mg Q4H PRN IVP For Pain 11/11/16 10:15 11/18/16 10:14 11/12/16 10:41 Metoprolol Succinate (Toprol XL) 25 mg DAILY ORAL 11/11/16 12:00 12/11/16 11:59 11/12/16 09:04 Metronidazole (Flagyl) 100 ml @ 100 mls/hr Q8H IVPB 11/11/16 00:00 11/18/16 00:00 11/12/16 09:11 Oxycodone HCl (Roxicodone) 5 mg Q4H PRN ORAL For Pain 4-6 11/11/16 10:30 11/18/16 10:29 Patient Own Medication (Patient's Own Med) 1 ea POSTHD@WED,SAT ORAL 11/14/16 18:00 12/14/16 17:59 Patient Own Medication (Patient's Own Med) 1 ea QWEEK ORAL 11/17/16 18:00 12/17/16 17:59 Patient Own Medication (Patient's Own Med) 2 ea BID ORAL 11/11/16 18:00 12/11/16 17:59 Sevelamer Carbonate 3200 mg 3,200 mg TIAC NG 11/11/16 11:30 12/11/16 11:29 11/12/16 05:58 Sodium Chloride 1,000 ml @ 500 mls/hr Q2H PRN IVLG sbp<90 during hd 11/11/16 21:48 12/11/16 21:47 Sodium Chloride 1,000 ml @ 500 mls/hr Q2H PRN IVLG sbp<90 during hd 11/12/16 10:44 12/12/16 10:43 Temazepam (Restoril) 15 mg BEDTIME ORAL 11/11/16 21:00 11/18/16 20:59 11/11/16 21:00 Vancomycin HCl (Vanco rx to dose) 1 ea DAILY PRN MISC Per rx protocol 11/11/16 07:00 12/11/16 06:59 Assessment/Plan Problem List: (1) Pulmonary edema ICD Codes: J81.1 - Chronic pulmonary edema SNOMED: 11071225 (2) Valvular cardiomyopathy ICD Codes: I42.8 - Other cardiomyopathies SNOMED: 37368647 (3) CAD (coronary artery disease) ICD Codes: I25.10 - Atherosclerotic heart disease of [place] coronary artery without angina pectoris SNOMED: 77836741 (4) Diabetic foot ulcer ICD Codes: E11.621 - Type 2 diabetes mellitus with foot ulcer; L97.509 - Non- pressure chronic ulcer of other part of unspecified foot with unspecified severity SNOMED: 15987877, 237005953 (5) ESRD (end stage renal disease) ICD Codes: N18.6 - End stage renal disease SNOMED: 55510521 (6) HIV disease ICD Codes: B20 - Human immunodeficiency virus [HIV] disease SNOMED: 68148086 Assessment/Plan podiatry consult ID consult/ IV antibiotics sliding scale, insulin HD by nephrology MIGUEL PICHARDO Nov 12, 2016 12:34
--- NOTE | 2016-11-12 12:47 | Diagnostic Imaging Report ---
Indication: Pain Comparison: None Findings: 3 views of the right foot were obtained. The phalanges of the second ray are absent. The bones are severely osteopenic. There are extensive vascular calcifications. There is no soft tissue air identified. Moderate DJD at the MTP joint noted. Impression: No plain film evidence for osteomyelitis. However the study is significantly limited by the degree of osteoporosis. Amputated second ray.
--- NOTE | 2016-11-12 12:48 | Diagnostic Imaging Report ---
Indication: Pain Comparison: 03/27/16 Findings: 3 views of the left foot were obtained. Patient has had prior transmetatarsal amputation. There is soft tissue swelling currently noted. No obvious periostitis or erosion seen. Extensive vascular calcifications are present. The bones are severely osteopenic. Impression: No definite plain film evidence for acute osteomyelitis.
--- NOTE | 2016-11-12 15:22 | Nephrology Progress Note ---
Assessment/Plan Problem List: (1) Osteomyelitis (2) ESRD (end stage renal disease) (3) HTN (hypertension) (4) Hepatitis C (5) Hypoglycemia (6) Vascular disease (7) Valvular cardiomyopathy Plan Dialysis 11/11 via cath without problem and repeat HD 11/12. No fluid overload. His pain and infection could be monitored with amputations and earlier rehab-- defer to pmd Subjective Constitutional: Reports: weakness HEENT: Reports: no symptoms Genitourinary: Reports: no symptoms Neurologic/Psychiatric: Reports: no symptoms Objective Objective Last 24 Hour Vital Signs Date Time Temp Pulse Resp B/P Pulse Ox O2 Delivery O2 Flow Rate FiO2 11/12/16 11:29 98.1 74 20 123/59 98 Room Air 11/12/16 09:04 67 112/60 11/12/16 08:03 98.2 69 20 117/52 96 Room Air 11/12/16 06:38 98.8 11/12/16 04:00 97.7 67 18 136/35 100 Room Air 11/12/16 04:00 67 11/12/16 00:00 72 11/12/16 00:00 97.7 66 20 133/65 100 Room Air 11/11/16 21:00 Room Air 11/11/16 20:00 97.9 72 20 147/50 99 Room Air 11/11/16 20:00 73 11/11/16 17:30 Room Air 11/11/16 16:00 65 Intake and Output 11/11/16 11/12/16 19:00 07:00 Intake Total 200 ml 200 ml Output Total 0 ml 3000 ml Balance 200 ml -2800 ml Intake Oral 200 ml 200 ml Output Urine Total 0 ml 0 ml Hemodialysis UF 3000 ml # Bowel Movements 3 1 Laboratory Tests 11/12/16 07:40: White Blood Count 4.9, Red Blood Count 4.11L, Hemoglobin 11.1L, Hematocrit 36.5L , Mean Corpuscular Volume 89, Mean Corpuscular Hemoglobin 27.1, Mean Corpuscular Hemoglobin Concent 30.5L, Red Cell Distribution Width 22.0H, Platelet Count 200, Mean Platelet Volume 7.1, Neutrophils (%) (Auto) 49.3, Lymphocytes (%) (Auto) 29.8, Monocytes (%) (Auto) 13.1H, Eosinophils (%) (Auto) 6.5H, Basophils (%) (Auto) 1.3, Sodium Level 134L, Potassium Level 5.2H, Chloride Level 93L, Carbon Dioxide Level 24, Anion Gap 17H, Blood Urea Nitrogen 58#H, Creatinine 9.5H, Estimat Glomerular Filtration Rate 6.8, Glucose Level 250 #H, Calcium Level 7.8L, Random Vancomycin Level 26.2, Hepatitis A IgM Antibody [ Pending], Hepatitis B Surface Antigen [Pending], Hepatitis B Core IgM Antibody [ Pending], Hepatitis C Antibody [Pending] Height (Feet): 6 Height (Inches): 8.00 Weight (Pounds): 170 General Appearance: no apparent distress, alert EENT: normal ENT inspection Neck: normal alignment, supple Cardiovascular: normal rate, regular rhythm Respiratory/Chest: lungs clear, normal breath sounds Abdomen: non tender, soft, no organomegaly Extremities: other - dry dressings on feet 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
[2016-11-12] MEDS ORDERED: Cefepime HCl 0.5 GM in D5W 55 ML IVPB SCH (16:00)
[2016-11-12] MEDS: metroNIDAZOLE 500mg tab ORAL SCH (16:10)
[2016-11-12 16:29] VITALS: BP 127/82
[2016-11-12] MEDS ORDERED: Amikacin 500 MG in NS 55 ML IV ONE (18:00)
[2016-11-12 20:00] VITALS: BP 134/83
[2016-11-12] MEDS: Hydromorphone 0.5mg/0.5ml inj IVP PRN (20:54)
[2016-11-13] VITALS (12 sets, daily range): BP systolic 87–138; BP diastolic 12–54
[2016-11-13] MEDS: metroNIDAZOLE 500mg tab ORAL SCH ×3 (00:47→16:05)
[2016-11-13] MEDS ORDERED: Cefepime 1gm vial ONE (00:54)
[2016-11-13] MEDS ORDERED: Cefepime HCl 0.5 GM in D5W 55 ML IVPB SCH (01:00)
[2016-11-13] MEDS: Hydromorphone 0.5mg/0.5ml inj IVP PRN ×3 (01:09→12:37)
[2016-11-13] MEDS: Renvela 800mg Pkt NG SCH ×4 (06:15→22:56)
[2016-11-13] MEDS: Sensipar 30mg Tab ORAL SCH (08:20)
[2016-11-13] MEDS: Metoprolol Succinate XL 25mg tab ORAL SCH (08:20)
[2016-11-13] MEDS: [UNRECOGNIZED DRUG - OTHER] ORAL SCH ×2 (10:52→18:20)
--- NOTE | 2016-11-13 13:21 | Nephrology Progress Note ---
Assessment/Plan Problem List: (1) Osteomyelitis (2) ESRD (end stage renal disease) (3) HTN (hypertension) (4) Hepatitis C (5) Hypoglycemia (6) Vascular disease (7) Valvular cardiomyopathy Plan Dialysis 11/12 via cath without problem and repeat HD 11/14. No fluid overload. His pain and infection could be monitored with amputations and earlier rehab-- defer to pmd Subjective Constitutional: Reports: weakness HEENT: Reports: blurred vision Genitourinary: Reports: no symptoms Neurologic/Psychiatric: Reports: weakness Subjective foot pain Objective Objective Last 24 Hour Vital Signs Date Time Temp Pulse Resp B/P Pulse Ox O2 Delivery O2 Flow Rate FiO2 11/13/16 11:44 97.7 63 19 115/54 100 Nasal Cannula 2.0 11/13/16 08:20 68 138/49 11/13/16 08:00 98.1 68 19 138/49 99 Room Air 11/13/16 04:09 98.1 60 19 122/51 99 Room Air 11/13/16 04:00 61 11/13/16 01:39 98.2 11/13/16 00:00 98.2 73 19 131/37 96 Room Air 11/13/16 00:00 74 11/12/16 20:30 Room Air 11/12/16 20:00 65 11/12/16 20:00 97.7 94 20 134/83 99 Room Air 11/12/16 17:00 Room Air 11/12/16 16:29 98.3 90 20 127/82 100 Room Air 11/12/16 16:00 54 Intake and Output 11/12/16 11/13/16 19:00 07:00 Intake Total 1370 ml 2740 ml Output Total 400 ml 2000 ml Balance 970 ml 740 ml Intake Oral 1370 ml 240 ml Hemodialysis 2500 ml Output Urine Total 400 ml Hemodialysis UF 2000 ml # Voids 3 2 # Bowel Movements 1 Laboratory Tests 11/12/16 17:45: White Blood Count [Pending], Lymphocytes [Pending], Random Amikacin Level 3.7, Percent CD3 Cells [Pending], Absolute CD3 Count [Pending], Percent CD4 Cells [ Pending], Absolute CD4 Count [Pending], T-Lymphocyte CD4/CD8 Ratio [Pending], Percent CD8 Cells [Pending], Absolute CD8 Count [Pending] Height (Feet): 6 Height (Inches): 8.00 Weight (Pounds): 170 General Appearance: no apparent distress, alert EENT: normal ENT inspection Neck: normal alignment Cardiovascular: normal rate Respiratory/Chest: lungs clear Abdomen: non tender Extremities: other - no edeema, dressings on feet 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
--- NOTE | 2016-11-13 15:13 | Infectious Diseases Prog Note ---
Assessment/Plan Assessment/Plan ASSESSMENT AND PLAN: 1. bilateral R>L foot wounds, right foot and heel infected wounds and necrosis - x-rays without osteo of both feet - podiatry f/u noted - continue vancomycin, cefepime, flagy and amikacin - ? MRI - will d/w podiatry, ? debridement - wound care per protocol 2. patient getting treated for right heel/foot osteo as outpatient with vancomycin and zosyn based on most recent wound culture in my office 3. End-stage renal disease, on hemodialysis. 4. Hypertension and diabetes, hep c + 5. Human immunodeficiency virus. Continue antiretroviral treatment at this time from home, cd4 ordered. Pt f/u with Dr. Chinchilla for HIV care. 6. Blood sugar and blood pressure control for diabetes and hypertension, per primary. 7. Anemia. 8. Hemodialysis per Renal. 9. Transient ischemic attack. 10. Congestive heart failure. 11. History of osteomyelitis of left foot. 12. Hepatis C. 13. History of seizure. 14. Weakness. 15. Past medical history noted. 16. Allergies to Heparin, meropenem, sulfa, and Zolpidem. 17. MAR was noted. 18. Case was discussed with RN. 19. Social history is negative. 20. Family history is noncontributory. 21. Case discussed with Dr. Thornton. 22. Continue treatment per primary consultants. 23. Wound care protocol. 24. Podiatry followup. 25. Continue Vascular Surgery evaluation. 26. Hypoglycemia treatment per primary. Subjective Constitutional: Denies: fever HEENT: Denies: congestion Respiratory: Denies: shortness of breath Cardiovascular: Denies: chest pain Gastrointestinal/Abdominal: Denies: constipation, diarrhea, nausea, vomiting Genitourinary: Reports: other - no agarwal Psychiatric: Denies: depression Skin: Denies: rash Musculoskeletal: Denies: pain Allergies: Coded Allergies: HEPARIN (Verified Allergy, Severe, low platelets, 06/11/14) SULFA (SULFONAMIDE ANTIBIOTICS) (Verified Allergy, Severe, nephro toxic, ) ZOLPIDEM (Verified Allergy, Unknown, 05/03/16) MEROPENEM (Verified Adverse Reaction, Intermediate, 04/01/16) Nausea and vomiting Uncoded Allergies: pork products (Allergy, Severe, rashes, 06/11/14) Objective Vital Signs Last 24 Hour Vital Signs Date Time Temp Pulse Resp B/P Pulse Ox O2 Delivery O2 Flow Rate FiO2 11/13/16 11:44 97.7 63 19 115/54 100 Nasal Cannula 2.0 11/13/16 08:20 68 138/49 11/13/16 08:00 98.1 68 19 138/49 99 Room Air 11/13/16 04:09 98.1 60 19 122/51 99 Room Air 11/13/16 04:00 61 11/13/16 01:39 98.2 11/13/16 00:00 98.2 73 19 131/37 96 Room Air 11/13/16 00:00 74 11/12/16 20:30 Room Air 11/12/16 20:00 65 11/12/16 20:00 97.7 94 20 134/83 99 Room Air 11/12/16 17:00 Room Air 11/12/16 16:29 98.3 90 20 127/82 100 Room Air 11/12/16 16:00 54 Height (Feet): 6 Height (Inches): 8.00 Weight (Pounds): 170 General Appearance: no acute distress HEENT: normocephalic, atraumatic, anicteric, mucous membranes moist, PERRL, EOMI, pharynx normal, supple, no JVD Respiratory/Chest: lungs clear, normal breath sounds, no respiratory distress, no accessory muscle use Cardiovascular: normal rate, regular rhythm, no gallop/murmur, no JVD Abdomen: normal bowel sounds, soft, non tender, no organomegaly, non distended Genitourinary: other - no agarwal Extremities: other - feet covered Skin: no rash 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/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 grossly normal, alert, responsive Lymphatic: no neck adenopathy Musculoskeletal: no effusion Objective bilateral foot x-rays - no osteo chest x-ray - atx Microbiology Date/Time Source Procedure Growth Status 11/11/16 16:05 Blood Blood Culture - Preliminary NO GROWTH AFTER 24 HOURS Resulted 11/11/16 15:55 Blood Blood Culture - Preliminary NO GROWTH AFTER 24 HOURS Resulted 11/10/16 17:30 Blood Blood Culture - Preliminary NO GROWTH AFTER 48 HOURS Resulted 11/10/16 16:55 Blood Blood Culture - Preliminary NO GROWTH AFTER 48 HOURS Resulted 11/10/16 19:50 Nasal Nares MRSA Culture - Final NO METHICILLIN RESISTANT STAPH AUREUS... Complete 11/10/16 19:50 Rectum VRE Culture - Final Enterococcus Faecium - Vre Complete Labs Test 11/10/16 16:55 11/10/16 17:30 11/11/16 06:10 11/12/16 07:40 White Blood Count 6.3 K/UL (4.8-10.8) 5.0 K/UL (4.8-10.8) 4.9 K/UL (4.8-10.8) Red Blood Count 4.65 M/UL (4.70-6.10) 4.26 M/UL (4.70-6.10) 4.11 M/UL (4.70-6.10) Hemoglobin 12.3 G/DL (14.2-18.0) 11.2 G/DL (14.2-18.0) 11.1 G/DL (14.2-18.0) Hematocrit 41.2 % (42.0-52.0) 37.9 % (42.0-52.0) 36.5 % (42.0-52.0) Mean Corpuscular Volume 89 FL (80-99) 89 FL (80-99) 89 FL (80-99) Mean Corpuscular Hemoglobin 26.4 PG (27.0-31.0) 26.4 PG (27.0-31.0) 27.1 PG (27.0-31.0) Mean Corpuscular Hemoglobin Concent 29.8 G/DL (32.0-36.0) 29.7 G/DL (32.0-36.0) 30.5 G/DL (32.0-36.0) Red Cell Distribution Width 22.3 % (11.6-14.8) 21.6 % (11.6-14.8) 22.0 % (11.6-14.8) Platelet Count 251 K/UL (150-450) 210 K/UL (150-450) 200 K/UL (150-450) Mean Platelet Volume 8.0 FL (6.5-10.1) 7.3 FL (6.5-10.1) 7.1 FL (6.5-10.1) Neutrophils (%) (Auto) 42.5 % (45.0-75.0) 42.9 % (45.0-75.0) 49.3 % (45.0-75.0) Lymphocytes (%) (Auto) 35.0 % (20.0-45.0) 35.2 % (20.0-45.0) 29.8 % (20.0-45.0) Monocytes (%) (Auto) 17.7 % (1.0-10.0) 14.3 % (1.0-10.0) 13.1 % (1.0-10.0) Eosinophils (%) (Auto) 3.4 % (0.0-3.0) 6.3 % (0.0-3.0) 6.5 % (0.0-3.0) Basophils (%) (Auto) 1.4 % (0.0-2.0) 1.3 % (0.0-2.0) 1.3 % (0.0-2.0) Prothrombin Time 10.8 SEC (9.30-11.50) Prothromb Time International Ratio 1.0 (0.9-1.1) Activated Partial Thromboplast Time 32 SEC (23-33) Sodium Level 138 mEQ/L (135-145) 138 mEQ/L (135-145) 134 mEQ/L (135-145) Potassium Level 5.2 mEQ/L (3.4-4.9) 5.9 mEQ/L (3.4-4.9) 5.2 mEQ/L (3.4-4.9) Chloride Level 97 mEQ/L (98-107) 97 mEQ/L (98-107) 93 mEQ/L (98-107) Carbon Dioxide Level 20 mEQ/L (20-30) 22 mEQ/L (20-30) 24 mEQ/L (20-30) Anion Gap 21 (5-15) 19 (5-15) 17 (5-15) Blood Urea Nitrogen 76 mg/dL (7-23) 85 mg/dL (7-23) 58 mg/dL (7-23) Creatinine 11.6 mg/dL (0.7-1.2) 12.2 mg/dL (0.7-1.2) 9.5 mg/dL (0.7-1.2) Estimat Glomerular Filtration Rate 5.5 mL/min (>60) 5.1 mL/min (>60) 6.8 mL/min (>60) Glucose Level 29 mg/dL (74-106) 110 mg/dL (74-106) 250 mg/dL (74-106) Lactic Acid Level 1.10 mmol/L (0.66-2.22) Calcium Level 8.0 mg/dL (8.6-10.2) 8.1 mg/dL (8.6-10.2) 7.8 mg/dL (8.6-10.2) Total Bilirubin 0.4 mg/dL (0.0-1.2) 0.3 mg/dL (0.0-1.2) Aspartate Amino Transf (AST/SGOT) 35 U/L (5-40) 29 U/L (5-40) Alanine Aminotransferase (ALT/SGPT) 24 U/L (3-41) 20 U/L (3-41) Alkaline Phosphatase 215 U/L (40-129) 176 U/L (40-129) Total Creatine Kinase 61 U/L (38-174) Creatine Kinase MB 2.0 ng/mL (< 6.7) Creatine Kinase MB Relative Index 3.2 Troponin I < 0.30 ng/mL (<=0.30) Total Protein 8.3 g/dL (6.6-8.7) 7.3 g/dL (6.6-8.7) Albumin 3.7 g/dL (3.5-5.2) 3.2 g/dL (3.5-5.2) Globulin 4.6 g/dL 4.1 g/dL Albumin/Globulin Ratio 0.8 (1.0-2.7) 0.7 (1.0-2.7) Random Vancomycin Level 30.9 ug/mL 26.2 ug/mL Vancomycin Level Trough 28.4 ug/mL (5.0-12.0) Hepatitis A IgM Antibody Negative (Negative) Hepatitis B Surface Antigen Negative (Negative) Hepatitis B Core IgM Antibody Negative (Negative) Hepatitis C Antibody >11.0 s/co ratio Test 11/12/16 17:45 Random Amikacin Level 3.7 ug/mL Laboratory Tests Test 11/12/16 17:45 White Blood Count Pending Lymphocytes Pending Random Amikacin Level 3.7 ug/mL Percent CD3 Cells Pending Absolute CD3 Count Pending Percent CD4 Cells Pending Absolute CD4 Count Pending T-Lymphocyte CD4/CD8 Ratio Pending Percent CD8 Cells Pending Absolute CD8 Count Pending Current Medications Medications (Trade) Dose Ordered Sig/Zohaib Route PRN Reason Start Time Stop Time Status Last Admin Dose Admin Amikacin Protocol (Amikacin pharmacy to dose) 1 ea DAILY PRN MISC Per rx protocol 11/11/16 07:00 12/11/16 06:59 Cefepime HCl/ Dextrose (Maxipime/D5W) 55 ml @ 110 mls/hr Q24H IVPB 11/13/16 01:00 11/20/16 00:59 11/13/16 00:58 Cinacalcet (Sensipar) 30 mg DAILY ORAL 11/11/16 12:00 12/11/16 11:59 11/13/16 08:20 Clonidine HCl (Catapres) 0.1 mg Q8H PRN ORAL SBP > 160 11/11/16 10:30 12/11/16 10:29 Clopidogrel Bisulfate (Plavix) 75 mg DAILY ORAL 11/11/16 12:00 12/11/16 11:59 11/13/16 08:18 Hydromorphone HCl (Dilaudid) 0.5 mg Q4H PRN IVP For Pain 11/12/16 22:15 11/19/16 22:14 11/13/16 12:37 Metoprolol Succinate (Toprol XL) 25 mg DAILY ORAL 11/11/16 12:00 12/11/16 11:59 11/13/16 08:20 Metronidazole 500 mg 500 mg Q8H ORAL 11/12/16 16:00 11/19/16 15:59 11/13/16 08:20 Oxycodone HCl (Roxicodone) 5 mg Q4H PRN ORAL For Pain 4-6 11/11/16 10:30 11/18/16 10:29 Patient Own Medication (Patient's Own Med) 1 ea POSTHD@WED,SAT ORAL 11/14/16 18:00 12/14/16 17:59 Patient Own Medication (Patient's Own Med) 1 ea QWEEK ORAL 11/17/16 18:00 12/17/16 17:59 Patient Own Medication 2 ea 2 ea BID ORAL 11/13/16 10:00 12/13/16 09:59 11/13/16 10:52 Sevelamer Carbonate 3200 mg 3,200 mg TIAC NG 11/11/16 11:30 12/11/16 11:29 11/13/16 10:53 Sodium Chloride (Sodium Chloride 1000ml bag) 1,000 ml @ 500 mls/hr Q2H PRN IVLG sbp<90 during hd 11/11/16 21:48 12/11/16 21:47 Sodium Chloride (Sodium Chloride 1000ml bag) 1,000 ml @ 500 mls/hr Q2H PRN IVLG sbp<90 during hd 11/12/16 10:44 12/12/16 10:43 Sodium Chloride (Sodium Chloride 1000ml bag) 1,000 ml @ 500 mls/hr Q2H PRN IVLG sbp<90 during hd 11/14/16 06:00 11/14/16 06:01 Temazepam (Restoril) 15 mg BEDTIME ORAL 11/11/16 21:00 11/18/16 20:59 11/13/16 01:09 Vancomycin HCl (Vanco rx to dose) 1 ea DAILY PRN MISC Per rx protocol 11/11/16 07:00 12/11/16 06:59 INOCENCIA DOS SANTOS Nov 13, 2016 15:13
--- NOTE | 2016-11-13 16:15 | Internal Med Progress Note ---
Subjective Date of Service: Nov 13, 2016 Physician Name Didier Jimenez Attending Physician Didier Jimenez Current Medications Medications (Trade) Dose Ordered Sig/Zohaib Route PRN Reason Start Time Stop Time Status Last Admin Dose Admin Amikacin Protocol (Amikacin pharmacy to dose) 1 ea DAILY PRN MISC Per rx protocol 11/11/16 07:00 12/11/16 06:59 Cefepime HCl/ Dextrose (Maxipime/D5W) 55 ml @ 110 mls/hr Q24H IVPB 11/13/16 01:00 11/20/16 00:59 11/13/16 00:58 Cinacalcet (Sensipar) 30 mg DAILY ORAL 11/11/16 12:00 12/11/16 11:59 11/13/16 08:20 Clonidine HCl (Catapres) 0.1 mg Q8H PRN ORAL SBP > 160 11/11/16 10:30 12/11/16 10:29 Clopidogrel Bisulfate (Plavix) 75 mg DAILY ORAL 11/11/16 12:00 12/11/16 11:59 11/13/16 08:18 Hydromorphone HCl (Dilaudid) 0.5 mg Q4H PRN IVP For Pain 11/12/16 22:15 11/19/16 22:14 11/13/16 12:37 Metoprolol Succinate (Toprol XL) 25 mg DAILY ORAL 11/11/16 12:00 12/11/16 11:59 11/13/16 08:20 Metronidazole 500 mg 500 mg Q8H ORAL 11/12/16 16:00 11/19/16 15:59 11/13/16 16:05 Oxycodone HCl (Roxicodone) 5 mg Q4H PRN ORAL For Pain 4-6 11/11/16 10:30 11/18/16 10:29 Patient Own Medication (Patient's Own Med) 1 ea POSTHD@WED,SAT ORAL 11/14/16 18:00 12/14/16 17:59 Patient Own Medication (Patient's Own Med) 1 ea QWEEK ORAL 11/17/16 18:00 12/17/16 17:59 Patient Own Medication 2 ea 2 ea BID ORAL 11/13/16 10:00 12/13/16 09:59 11/13/16 10:52 Sevelamer Carbonate 3200 mg 3,200 mg TIAC NG 11/11/16 11:30 12/11/16 11:29 11/13/16 10:53 Sodium Chloride (Sodium Chloride 1000ml bag) 1,000 ml @ 500 mls/hr Q2H PRN IVLG sbp<90 during hd 11/11/16 21:48 12/11/16 21:47 Sodium Chloride (Sodium Chloride 1000ml bag) 1,000 ml @ 500 mls/hr Q2H PRN IVLG sbp<90 during hd 11/12/16 10:44 12/12/16 10:43 Sodium Chloride (Sodium Chloride 1000ml bag) 1,000 ml @ 500 mls/hr Q2H PRN IVLG sbp<90 during hd 11/14/16 06:00 11/14/16 06:01 Temazepam (Restoril) 15 mg BEDTIME ORAL 11/11/16 21:00 11/18/16 20:59 11/13/16 01:09 Vancomycin HCl (Vanco rx to dose) 1 ea DAILY PRN MISC Per rx protocol 11/11/16 07:00 12/11/16 06:59 Allergies: Coded Allergies: HEPARIN (Verified Allergy, Severe, low platelets, 06/11/14) SULFA (SULFONAMIDE ANTIBIOTICS) (Verified Allergy, Severe, nephro toxic, ) ZOLPIDEM (Verified Allergy, Unknown, 05/03/16) MEROPENEM (Verified Adverse Reaction, Intermediate, 04/01/16) Nausea and vomiting Uncoded Allergies: pork products (Allergy, Severe, rashes, 06/11/14) ROS Limited/Unobtainable: No Constitutional: Reports: no symptoms HEENT: Reports: no symptoms Cardiovascular: Reports: no symptoms Respiratory: Reports: no symptoms Gastrointestinal/Abdominal: Reports: no symptoms Genitourinary: Reports: no symptoms Neurologic/Psychiatric: Reports: no symptoms Subjective 61 YO M admitted with shortness of breath and right diabetic foot ulcer. Sinus Bradycardia in 40's Objective Last Vital Signs Date Time Temp Pulse Resp B/P Pulse Ox O2 Delivery O2 Flow Rate FiO2 11/13/16 11:44 97.7 63 19 115/54 100 Nasal Cannula 2.0 Laboratory Tests Test 11/12/16 17:45 White Blood Count Pending Lymphocytes Pending Random Amikacin Level 3.7 ug/mL Percent CD3 Cells Pending Absolute CD3 Count Pending Percent CD4 Cells Pending Absolute CD4 Count Pending T-Lymphocyte CD4/CD8 Ratio Pending Percent CD8 Cells Pending Absolute CD8 Count Pending Microbiology Date/Time Source Procedure Growth Status 11/11/16 16:05 Blood Blood Culture - Preliminary NO GROWTH AFTER 24 HOURS Resulted 11/11/16 15:55 Blood Blood Culture - Preliminary NO GROWTH AFTER 24 HOURS Resulted 11/10/16 17:30 Blood Blood Culture - Preliminary NO GROWTH AFTER 48 HOURS Resulted 11/10/16 16:55 Blood Blood Culture - Preliminary NO GROWTH AFTER 48 HOURS Resulted 11/10/16 19:50 Nasal Nares MRSA Culture - Final NO METHICILLIN RESISTANT STAPH AUREUS... Complete 11/10/16 19:50 Rectum VRE Culture - Final Enterococcus Faecium - Vre Complete Intake and Output 11/12/16 11/13/16 19:00 07:00 Intake Total 1370 ml 2740 ml Output Total 400 ml 2000 ml Balance 970 ml 740 ml Intake Oral 1370 ml 240 ml Hemodialysis 2500 ml Output Urine Total 400 ml Hemodialysis UF 2000 ml # Voids 3 2 # Bowel Movements 1 Objective General Appearance: WD/WN, no apparent distress, alert EENT: PERRL/EOMI, normal ENT inspection, TMs normal Neck: non-tender, normal alignment, supple Cardiovascular: normal peripheral pulses, sinus bradycardia, regular rhythm, no gallop/murmur, no JVD Respiratory/Chest: chest wall non-tender, lungs clear, normal breath sounds, no respiratory distress, no accessory muscle use Abdomen: normal bowel sounds, non tender, soft, no organomegaly, no mass Extremities: normal range of motion 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 See podiatry consult note. cont vanco, cefepime, amikacin and flagyl per ID (6) HIV disease Assessment & Plan: Continue HAART per ID (7) HTN (hypertension) Assessment & Plan: Continue metoprolol (8) Diabetes Assessment & Plan: Hypoglycemic on arrival. (9) ESRD (end stage renal disease) Assessment & Plan: See nephrology note-Dr Bianchi (10) Bradycardia Assessment & Plan: ?sinus? Stat 12 lead EKG. Await cardiology consult. Status: not improved DIDIER JIMENEZ Nov 13, 2016 16:15
[2016-11-13] MEDS ORDERED: Morphine Sulfate 2mg/ml Inj IM PRN (16:30)
[2016-11-13] MEDS ORDERED: Morphine Sulfate 2mg/ml Inj IVP PRN ×3 (16:30→20:30)
--- NOTE | 2016-11-13 17:24 | Podiatric Progress Note ---
Assessment/Plan Patient Lloyd Grigsby is a 61 year old male who was admitted on Nov 10, 2016 at 17:23 with Problems: Assessment/Plan A/ Nonpressure ulcer right heel Nonpressure ulcer right lateral foot Nonpressure ulcer left heel PAD with Gangrene DM HIV S/P TMA left foot - healed S/P right 2nd toe amp - healed P/ 1) Cont wound care as ordered 2) Abx per ID 3) MRI to evaluate for osteo of the right heel 4) Arterial studies pending 5) Will re-consult Dr Dang who has seen patient in the past 6) D/W 7) Will follow Subjective Allergies: Coded Allergies: HEPARIN (Verified Allergy, Severe, low platelets, 06/11/14) SULFA (SULFONAMIDE ANTIBIOTICS) (Verified Allergy, Severe, nephro toxic, ) ZOLPIDEM (Verified Allergy, Unknown, 05/03/16) MEROPENEM (Verified Adverse Reaction, Intermediate, 04/01/16) Nausea and vomiting Uncoded Allergies: pork products (Allergy, Severe, rashes, 06/11/14) Subjective Patient is resting comfortably. Spoke with over the phone while with patient. She informed me patient has been dealing with his heels for 6-8 wks now. He has been under the care of doctors at [facility]. Objective Exam Last 24 Hour Vital Signs Date Time Temp Pulse Resp B/P Pulse Ox O2 Delivery O2 Flow Rate FiO2 11/13/16 16:00 97.7 51 19 114/40 97 Nasal Cannula 2.0 11/13/16 11:44 97.7 63 19 115/54 100 Nasal Cannula 2.0 11/13/16 08:20 68 138/49 11/13/16 08:00 98.1 68 19 138/49 99 Room Air 11/13/16 04:09 98.1 60 19 122/51 99 Room Air 11/13/16 04:00 61 11/13/16 01:39 98.2 11/13/16 00:00 98.2 73 19 131/37 96 Room Air 11/13/16 00:00 74 11/12/16 20:30 Room Air 11/12/16 20:00 65 11/12/16 20:00 97.7 94 20 134/83 99 Room Air Laboratory Tests Test 11/12/16 17:45 White Blood Count Pending Lymphocytes Pending Random Amikacin Level 3.7 ug/mL Percent CD3 Cells Pending Absolute CD3 Count Pending Percent CD4 Cells Pending Absolute CD4 Count Pending T-Lymphocyte CD4/CD8 Ratio Pending Percent CD8 Cells Pending Absolute CD8 Count Pending Microbiology Date/Time Source Procedure Growth Status 11/11/16 16:05 Blood Blood Culture - Preliminary NO GROWTH AFTER 24 HOURS Resulted 11/10/16 19:50 Nasal Nares MRSA Culture - Final NO METHICILLIN RESISTANT STAPH AUREUS... Complete 11/10/16 19:50 Rectum VRE Culture - Final Enterococcus Faecium - Vre Complete Dermatological Dermatological Narrative Gangrenous changes to right heel, right lateral foot, and left heel- all sites are dry Victor Hugo Blackburn DPM Nov 13, 2016 17:24
[2016-11-13 19:10] LABS: CD3 ABSOLUTE 724 /uL (622-2402); CD4 ABSOLUTE 250 /uL (359-1519); CD8 ABSOLUTE 460 /uL (109-897); LYMPHOCYTES ABSOLUTE 1.2 x10E3/uL (0.7-3.1); LYMPHS 21 % (.); WBC 5.8 x10E3/uL (3.4-10.8)
[2016-11-13] MEDS ORDERED: DOPamine 400mg/250ml 250 ML IV SCH (20:15)
[2016-11-13] MEDS: HYDROmorphone 1mg/ml Carpuject IVP PRN (22:58)
[2016-11-14] VITALS (48 sets, daily range): BP systolic 110–144; BP diastolic 18–52
[2016-11-14] MEDS: Cefepime HCl 0.5 GM in D5W 55 ML IVPB SCH (00:24)
[2016-11-14] MEDS: metroNIDAZOLE 500mg tab ORAL SCH ×4 (00:24→23:32)
[2016-11-14] MEDS ORDERED: Morphine Sulfate 2mg/ml Inj IVP PRN ×2 (01:00)
[2016-11-14] MEDS: HYDROmorphone 1mg/ml Carpuject IVP PRN ×2 (03:17→08:00)
[2016-11-14 05:49] LABS: BASOPHILS % (AUTO) 1.4 % (0.0-2.0); LYMPHOCYTES % (AUTO) 34.7 % (20.0-45.0); MEAN CORPUSCULAR HEMOGLOBIN 27.3 PG (27.0-31.0); MEAN CORPUSCULAR HGB CONC 30.8 G/DL (32.0-36.0); MEAN CORPUSCULAR VOLUME 89 FL (80-99); MEAN PLATELET VOLUME 7.9 FL (6.5-10.1); MONOCYTES % (AUTO) 18.8 % (1.0-10.0); NEUTROPHILS % (AUTO) 42.1 % (45.0-75.0); PLATELET COUNT 206 K/UL (150-450); RED BLOOD COUNT 4.01 M/UL (4.70-6.10); RED CELL DISTRIBUTION WIDTH 21.7 % (11.6-14.8); WHITE BLOOD COUNT 4.8 K/UL (4.8-10.8)
[2016-11-14 06:13] LABS: CREATININE 9.4 mg/dL (0.7-1.2); GLOMERULAR FILTRATION RATE 6.9 mL/min (>60)
[2016-11-14 06:16] LABS: POTASSIUM 6.5 mEQ/L (3.4-4.9)
[2016-11-14] MEDS: Renvela 800mg Pkt NG SCH ×3 (07:45→16:03)
--- NOTE | 2016-11-14 07:46 | Diagnostic Imaging Report ---
APPROVED REPORT CPT Code: 94086 Symptoms Comments: Bilateral heel ulcers. Left transmetatarsal amputee. Risk Factors Cardiac Disease Diabetes RIGHT LEG: Common femoral artery waveform analysis is within normal limits at rest. Color flow duplex sonography reveals mild calcification throughout the superficial femoral and popliteal arteries. There is no evidence of stenosis or occlusion within these segments. The tibioperoneal trunk was not well visualized. The distal posterior tibial, anterior tibial and dorsalis pedis arteries are also mildly calcified. There is a mild stenosis of the proximal to mid anterior tibial artery. Doppler tibial artery waveform analysis is compatible with mild to moderate ischemia. LEFT LEG: Common femoral artery waveform analysis is within normal limits at rest. Color flow duplex sonography reveals mild calcification throughout the superficial femoral and popliteal arteries. There is no evidence of stenosis or occlusion within these segments. The tibioperoneal trunk was visualized. The distal posterior tibial, anterior tibial and dorsalis pedis arteries are also mildly calcified. There is a severe stenosis of the posterior tibial artery at the ankle. The dorsalis pedis and anterior tibial arteries are within normal limits. Doppler tibial artery waveform analysis is compatible with minimal to mild ischemia.
[2016-11-14] MEDS: VIRACEPT ORAL SCH ×2 (08:48→17:17)
[2016-11-14] MEDS: Sensipar 30mg Tab ORAL SCH (08:49)
[2016-11-14] MEDS ORDERED: Amikacin Rx to dose MISC PRN (09:00)
[2016-11-14] MEDS ORDERED: Sodium Polystyrene Sulfonate 15gm Powder ORAL ONE (09:45)
[2016-11-14] MEDS ORDERED: Calcium Gluconate 1gm/10ml vial IVP ONE (09:45)
--- NOTE | 2016-11-14 10:10 | Cardiac Electrophysiology PN ---
Subjective Subjective [id number] SSS. Keep off betablocker and Clonidine. Keep on Dopamine for now till HR more than 60 and the taper off. DW RN Objective Last 24 Hour Vital Signs Date Time Temp Pulse Resp B/P Pulse Ox O2 Delivery O2 Flow Rate FiO2 11/14/16 09:30 56 26 124/35 96 Room Air 11/14/16 09:00 57 21 125/39 94 Room Air 11/14/16 08:30 59 21 119/33 94 Room Air 11/14/16 08:30 97.5 11/14/16 08:00 97.5 58 20 131/42 98 Room Air 11/14/16 08:00 58 11/14/16 07:30 59 18 129/42 97 Room Air 11/14/16 07:00 59 18 129/42 97 Room Air 11/14/16 06:49 57 18 100 Full Face 28 11/14/16 06:42 Nasal Cannula 2.0 28 11/14/16 06:42 99 Nasal Cannula 2.0 28 11/14/16 06:31 73 18 123/33 99 Bi-pap 28 11/14/16 06:00 83 18 127/33 98 Bi-pap 28 11/14/16 05:30 66 18 131/38 98 Bi-pap 11/14/16 05:22 60 14 100 Full Face 28 11/14/16 05:00 119/32 11/14/16 05:00 63 18 119/32 98 Bi-pap 11/14/16 04:30 66 17 139/42 93 Bi-pap 28 11/14/16 04:00 120/33 11/14/16 04:00 98.1 67 17 120/33 98 Bi-pap 28 11/14/16 04:00 66 11/14/16 03:30 69 18 117/34 95 Bi-pap 28 11/14/16 03:18 67 22 98 Full Face 22 11/14/16 03:00 69 15 118/36 94 Bi-pap 11/14/16 03:00 113/36 11/14/16 02:30 67 16 124/33 94 Bi-pap 28 11/14/16 02:00 62 20 118/28 99 Bi-pap 28 11/14/16 02:00 118/28 11/14/16 01:43 63 23 98 Full Face 28 11/14/16 01:30 62 21 126/33 99 Bi-pap 28 11/14/16 01:00 59 14 116/28 99 Bi-pap 28 11/14/16 01:00 116/28 11/14/16 00:30 106 23 111/18 100 Bi-pap 28 11/14/16 00:14 110/21 11/14/16 00:00 66 11/14/16 00:00 110/21 11/14/16 00:00 98.0 66 24 110/21 100 Bi-pap 28 11/13/16 23:30 89 24 114/27 100 Bi-pap 28 11/13/16 23:09 55 16 98 Full Face 30 11/13/16 23:00 123/33 11/13/16 23:00 56 16 123/33 96 Bi-pap 28 11/13/16 22:30 59 17 125/33 95 Bi-pap 28 11/13/16 22:00 28 11/13/16 22:00 93 16 107/15 97 Nasal Cannula 2.0 11/13/16 22:00 107/15 11/13/16 21:30 97 15 103/12 97 Nasal Cannula 2.0 11/13/16 21:30 97 11/13/16 21:00 74 19 95/21 97 Nasal Cannula 2.0 11/13/16 21:00 95/21 11/13/16 21:00 74 11/13/16 20:31 87/14 11/13/16 20:30 98.1 84 19 87/19 100 Nasal Cannula 2.0 11/13/16 20:30 84 11/13/16 17:55 96 Nasal Cannula 2.0 28 11/13/16 17:55 Nasal Cannula 2.0 28 11/13/16 16:00 97.7 51 19 114/40 97 Nasal Cannula 2.0 11/13/16 11:44 97.7 63 19 115/54 100 Nasal Cannula 2.0 Intake and Output 11/13/16 11/14/16 19:00 07:00 Intake Total 480 ml 325.47 ml Balance 480 ml 325.47 ml Intake Oral 480 ml 140 ml IV Total 185.47 ml Laboratory Tests Test 11/14/16 04:30 White Blood Count 4.8 K/UL (4.8-10.8) Red Blood Count 4.01 M/UL (4.70-6.10) L Hemoglobin 11.0 G/DL (14.2-18.0) L Hematocrit 35.6 % (42.0-52.0) L Mean Corpuscular Volume 89 FL (80-99) Mean Corpuscular Hemoglobin 27.3 PG (27.0-31.0) Mean Corpuscular Hemoglobin Concent 30.8 G/DL (32.0-36.0) L Red Cell Distribution Width 21.7 % (11.6-14.8) H Platelet Count 206 K/UL (150-450) Mean Platelet Volume 7.9 FL (6.5-10.1) Neutrophils (%) (Auto) 42.1 % (45.0-75.0) L Lymphocytes (%) (Auto) 34.7 % (20.0-45.0) Monocytes (%) (Auto) 18.8 % (1.0-10.0) H Eosinophils (%) (Auto) 3.0 % (0.0-3.0) Basophils (%) (Auto) 1.4 % (0.0-2.0) Sodium Level 135 mEQ/L (135-145) Potassium Level 6.5 mEQ/L (3.4-4.9) *H Chloride Level 93 mEQ/L (98-107) L Carbon Dioxide Level 20 mEQ/L (20-30) Anion Gap 22 (5-15) H Blood Urea Nitrogen 66 mg/dL (7-23) H Creatinine 9.4 mg/dL (0.7-1.2) H Estimat Glomerular Filtration Rate 6.9 mL/min (>60) Glucose Level 319 mg/dL (74-106) H Calcium Level 8.0 mg/dL (8.6-10.2) L Random Vancomycin Level 18.6 ug/mL Microbiology Date/Time Source Procedure Growth Status 11/11/16 16:05 Blood Blood Culture - Preliminary NO GROWTH AFTER 48 HOURS Resulted 11/11/16 15:55 Blood Blood Culture - Preliminary NO GROWTH AFTER 48 HOURS Resulted CLIFTON KEARNEY Nov 14, 2016 10:10
[2016-11-14] MEDS: Sodium Bicarbonate 50ml Carp IV SCH ×2 (10:40→12:43)
[2016-11-14] MEDS: Hydromorphone 0.5mg/0.5ml inj IVP PRN ×3 (11:09→20:24)
--- NOTE | 2016-11-14 12:23 | Neurology Progress Note ---
Interim History Interim History ROS Limited/Unobtainable: No Objective Physical Exam Last Vital Signs Date Time Temp Pulse Resp B/P Pulse Ox O2 Delivery O2 Flow Rate FiO2 11/14/16 12:00 62 11/14/16 11:30 30 124/45 96 Room Air 11/14/16 08:30 97.5 11/14/16 06:49 28 11/14/16 06:42 2.0 Laboratory Tests Test 11/14/16 04:30 White Blood Count 4.8 K/UL (4.8-10.8) Red Blood Count 4.01 M/UL (4.70-6.10) L Hemoglobin 11.0 G/DL (14.2-18.0) L Hematocrit 35.6 % (42.0-52.0) L Mean Corpuscular Volume 89 FL (80-99) Mean Corpuscular Hemoglobin 27.3 PG (27.0-31.0) Mean Corpuscular Hemoglobin Concent 30.8 G/DL (32.0-36.0) L Red Cell Distribution Width 21.7 % (11.6-14.8) H Platelet Count 206 K/UL (150-450) Mean Platelet Volume 7.9 FL (6.5-10.1) Neutrophils (%) (Auto) 42.1 % (45.0-75.0) L Lymphocytes (%) (Auto) 34.7 % (20.0-45.0) Monocytes (%) (Auto) 18.8 % (1.0-10.0) H Eosinophils (%) (Auto) 3.0 % (0.0-3.0) Basophils (%) (Auto) 1.4 % (0.0-2.0) Sodium Level 135 mEQ/L (135-145) Potassium Level 6.5 mEQ/L (3.4-4.9) *H Chloride Level 93 mEQ/L (98-107) L Carbon Dioxide Level 20 mEQ/L (20-30) Anion Gap 22 (5-15) H Blood Urea Nitrogen 66 mg/dL (7-23) H Creatinine 9.4 mg/dL (0.7-1.2) H Estimat Glomerular Filtration Rate 6.9 mL/min (>60) Glucose Level 319 mg/dL (74-106) H Calcium Level 8.0 mg/dL (8.6-10.2) L Random Vancomycin Level 18.6 ug/mL Impression/Recommendations Status: not improved Recommendations # [id number] VANESSA WEN Nov 14, 2016 12:23
--- NOTE | 2016-11-14 12:27 | Internal Med Progress Note ---
Subjective Date of Service: Nov 14, 2016 Physician Name Didier Jimenez Attending Physician Didier Jimenez Current Medications Medications (Trade) Dose Ordered Sig/Zohaib Route PRN Reason Start Time Stop Time Status Last Admin Dose Admin Amikacin Protocol (Amikacin pharmacy to dose) 1 ea DAILY PRN MISC Per rx protocol 11/14/16 09:00 12/14/16 08:59 Amlodipine Besylate (Norvasc) 5 mg DAILY ORAL 11/14/16 11:00 12/14/16 10:59 11/14/16 11:01 Cefepime HCl 0.5 gm/Dextrose 55 ml @ 110 mls/hr Q24H IVPB 11/14/16 01:00 11/21/16 00:59 11/14/16 00:24 Cinacalcet (Sensipar) 30 mg DAILY ORAL 11/14/16 09:00 12/14/16 08:59 11/14/16 08:49 Clonidine HCl (Catapres) 0.1 mg Q8H PRN ORAL SBP > 160 11/14/16 02:30 12/14/16 02:29 Clopidogrel Bisulfate (Plavix) 75 mg DAILY ORAL 11/14/16 09:00 12/14/16 08:59 11/14/16 08:48 Dopamine HCl/ Dextrose 250 ml @ 14.458 mls/ hr Q24H IV 11/14/16 20:15 12/14/16 20:14 11/14/16 00:14 Hydromorphone HCl (Dilaudid) 0.5 mg Q4H PRN IVP Severe Pain (Pain Scale 7-10) 11/14/16 09:45 11/20/16 09:44 11/14/16 11:09 Metronidazole (Flagyl) 500 mg Q8H ORAL 11/14/16 00:00 11/21/16 00:00 11/14/16 08:00 Nateglinide (Starlix) 120 mg TIAC ORAL 11/14/16 06:30 12/14/16 06:29 11/14/16 11:02 Oxycodone HCl (Roxicodone) 5 mg Q4H PRN ORAL For Pain 4-6 11/13/16 22:30 11/20/16 22:29 Patient Own Medication (Patient's Own Med) 1 ea POSTHD@WED,SAT ORAL 11/14/16 18:00 12/14/16 17:59 UNV Patient Own Medication (Patient's Own Med) 1 ea QWEEK ORAL 11/17/16 18:00 12/17/16 17:59 UNV Patient Own Medication (Patient's Own Med) 2 ea BID ORAL 11/14/16 09:00 12/14/16 08:59 11/14/16 08:48 Sevelamer Carbonate (Renvela) 3,200 mg TIAC NG 11/13/16 21:30 12/13/16 21:29 11/14/16 11:01 Sodium Chloride (Sodium Chloride 1000ml bag) 1,000 ml @ 500 mls/hr Q2H PRN IVLG sbp<90 during hd 11/13/16 21:30 12/13/16 21:29 Temazepam (Restoril) 15 mg BEDTIME ORAL 11/14/16 22:00 11/21/16 21:59 Vancomycin HCl (Vanco rx to dose) 1 ea DAILY PRN MISC Per rx protocol 11/14/16 09:00 12/14/16 08:59 Allergies: Coded Allergies: HEPARIN (Verified Allergy, Severe, low platelets, 06/11/14) SULFA (SULFONAMIDE ANTIBIOTICS) (Verified Allergy, Severe, nephro toxic, ) ZOLPIDEM (Verified Allergy, Unknown, 05/03/16) MEROPENEM (Verified Adverse Reaction, Intermediate, 04/01/16) Nausea and vomiting Uncoded Allergies: pork products (Allergy, Severe, rashes, 06/11/14) ROS Limited/Unobtainable: No Constitutional: Reports: no symptoms HEENT: Reports: no symptoms Cardiovascular: Reports: irregular heart rate Respiratory: Reports: no symptoms Gastrointestinal/Abdominal: Reports: no symptoms Genitourinary: Reports: no symptoms Neurologic/Psychiatric: Reports: no symptoms Subjective 61 YO M admitted with shortness of breath, hypoglycemia and right diabetic foot ulcer. Sinus Bradycardia continues in 50's. ICU Objective Last Vital Signs Date Time Temp Pulse Resp B/P Pulse Ox O2 Delivery O2 Flow Rate FiO2 11/14/16 12:00 62 11/14/16 11:30 30 124/45 96 Room Air 11/14/16 08:30 97.5 11/14/16 06:49 28 11/14/16 06:42 2.0 Laboratory Tests Test 11/14/16 04:30 White Blood Count 4.8 K/UL (4.8-10.8) Red Blood Count 4.01 M/UL (4.70-6.10) L Hemoglobin 11.0 G/DL (14.2-18.0) L Hematocrit 35.6 % (42.0-52.0) L Mean Corpuscular Volume 89 FL (80-99) Mean Corpuscular Hemoglobin 27.3 PG (27.0-31.0) Mean Corpuscular Hemoglobin Concent 30.8 G/DL (32.0-36.0) L Red Cell Distribution Width 21.7 % (11.6-14.8) H Platelet Count 206 K/UL (150-450) Mean Platelet Volume 7.9 FL (6.5-10.1) Neutrophils (%) (Auto) 42.1 % (45.0-75.0) L Lymphocytes (%) (Auto) 34.7 % (20.0-45.0) Monocytes (%) (Auto) 18.8 % (1.0-10.0) H Eosinophils (%) (Auto) 3.0 % (0.0-3.0) Basophils (%) (Auto) 1.4 % (0.0-2.0) Sodium Level 135 mEQ/L (135-145) Potassium Level 6.5 mEQ/L (3.4-4.9) *H Chloride Level 93 mEQ/L (98-107) L Carbon Dioxide Level 20 mEQ/L (20-30) Anion Gap 22 (5-15) H Blood Urea Nitrogen 66 mg/dL (7-23) H Creatinine 9.4 mg/dL (0.7-1.2) H Estimat Glomerular Filtration Rate 6.9 mL/min (>60) Glucose Level 319 mg/dL (74-106) H Calcium Level 8.0 mg/dL (8.6-10.2) L Random Vancomycin Level 18.6 ug/mL Microbiology Date/Time Source Procedure Growth Status 11/11/16 16:05 Blood Blood Culture - Preliminary NO GROWTH AFTER 48 HOURS Resulted 11/11/16 15:55 Blood Blood Culture - Preliminary NO GROWTH AFTER 48 HOURS Resulted Intake and Output 11/13/16 11/14/16 19:00 07:00 Intake Total 480 ml 325.47 ml Balance 480 ml 325.47 ml Intake Oral 480 ml 140 ml IV Total 185.47 ml Objective General Appearance: WD/WN, no apparent distress, alert EENT: PERRL/EOMI, normal ENT inspection, TMs normal Neck: non-tender, normal alignment, supple Cardiovascular: normal peripheral pulses, sinus bradycardia, regular rhythm, no gallop/murmur, no JVD Respiratory/Chest: chest wall non-tender, lungs clear, normal breath sounds, no respiratory distress, no accessory muscle use Abdomen: normal bowel sounds, non tender, soft, no organomegaly, no mass Extremities: normal range of motion Neurologic: skull splitter II-XII 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 See podiatry consult note. cont vanco, cefepime, amikacin and flagyl per ID (6) HIV disease Assessment & Plan: Continue HAART per ID (7) HTN (hypertension) Assessment & Plan: Continue metoprolol (8) Diabetes Assessment & Plan: Hypoglycemic on arrival. (9) ESRD (end stage renal disease) Assessment & Plan: Hemodialysis today. See nephrology note-Dr Bianchi (10) Bradycardia Assessment & Plan: See cardiology consult. D/C metoprolol and clonidine. Status: deteriorating DIDIER JIMENEZ Nov 14, 2016 12:27
--- NOTE | 2016-11-14 12:55 | Consultation ---
Consult Note Assessment/Plan Pulmonary Consult dictated Sepsis with shock R foot osteomyelitis chronic hepatitis C history of TIA Osler hemorrhagic telangiectasia syndrome end stage renal failure on dialysis syncope diabetic autonomic neuropathy essential hypertension diabetes mellitus sleep apnea human immunodeficiency virus infection ordered BiPAP will follow, thanks, MD ALVINO Zuniga MICHAEL Nov 14, 2016 12:54
[2016-11-14] MEDS ORDERED: DOPamine 400mg/250ml 250 ML IV SCH ×2 (14:45→20:15)
--- NOTE | 2016-11-14 16:05 | Cardiology Report ---
APPROVED REPORT EXAM: Two-dimensional and M-mode echocardiogram with Doppler and color Doppler. INDICATION Bradycardia M-Mode DIMENSIONS IVSd2.1 (0.7-1.1cm)Left Atrium (MM)5.6 (1.6-4.0cm) LVDd5.6 (3.5-5.6cm)Aortic Root3.4 (2.0-3.7cm) PWd1.5 (0.7-1.1cm)Aortic Cusp Exc.1.7 (1.5-2.0cm) LVDs3.1 (2.5-4.0cm) PWs2.1 cm Mild left atrial enlargement by 2-D. Normal left ventricular systolic function and wall motion. Left ventricular ejection fraction estimated to be 55 %. Moderate left ventricular hypertrophy. No evidence of pericardial fat or effusion. Severe left atrial enlargement. Mild right atrial enlargement. Mild right ventricular enlargement. Mioderate aortic valve sclerosis and or thickening with adequate cusp excursion. Cannot r/o vegetation. Mildly thickened mitral valve leaflets with normal excursion. Heavy mitral annulus and aortic root calcification. Normal pulmonic valve structure. Normal tricuspid valve structure. IVC dilated at 2.6 cm without physiologic collapse, estimated RAP is 15 mmHg. Large round echodense mass l noted in right atrium. Cannot exclude for tumor, thrombus or possible vegetation. A color flow and spectral Doppler study was performed and revealed: Severe aortic regurgitation. Moderate to severe mitral regurgitation. Mitral diastolic velocities suggest reduced left ventricular relaxation (Grade I). Mild tricuspid regurgitation. Tricuspid systolic velocities suggests peak right ventricular systolic pressure of 63 mmHg, consistent with severe pulmonary hypertension. Trace pulmonic regurgitation present. SUGGEST MIAN IF CLINICALLY INDICATED. Note: results discussed with Dr. Costa.
--- NOTE | 2016-11-14 17:00 | Consultation ---
DATE OF CONSULTATION: 11/14/2016 CARDIOLOGY CONSULTATION REFERRING PHYSICIAN: Papa Lunsford M.D. REASON FOR CONSULTATION: Profound bradycardia. HISTORY OF PRESENT ILLNESS: The patient is a 61-year-old gentleman with history of hypertension, diabetes, human immunodeficiency virus, and hepatitis C, as well as end-stage renal disease on home dialysis and osteomyelitis who was brought in for worsening of the wound on his heel. The patient also stated that he gets hemodialysis at home and his machine was not working. He came to the emergency room was found to be hypoglycemic and congestive heart failure. The patient also was bradycardic with heart rate in the 40s and junctional rhythm. My order was obtained, the patient was transferred to intensive care unit and was started on dopamine drip at 5 mcg per kilogram per minute to fixed dosage. Heart rate improved to 50s. At the time of my evaluation, the patient is in the intensive care unit. REVIEW OF SYSTEMS: Performed and was negative other than what was mentioned in the history of present illness. PAST MEDICAL HISTORY: 1. Hypertension. 2. Diabetes. 3. History of end-stage renal disease, on hemodialysis. 4. Osteomyelitis. 5. Status post left metatarsal amputation. MEDICATIONS: Per reconciliation. His medication at home included Toprol-XL 25 mg daily and add p.r.n. clonidine. SOCIAL HISTORY: He lives at home. Does not smoke or drink alcohol. PHYSICAL EXAMINATION: VITAL SIGNS: Blood pressure is 120/70, pulse is 64 , on dopamine and respirations 18. He is afebrile. HEAD AND NECK: Shows no JVD. LUNGS: Decreased breath sounds. CARDIOVASCULAR: Shows regular S1 and S2. Shows bradycardic. ABDOMEN: Soft. EXTREMITIES: No pitting edema was there in the right foot ulcer as well as left metatarsal amputation. LABORATORY DATA: Show white count of 4.8, hemoglobin 11, hematocrit 35.6, and platelet count of 206,000. Sodium 135, potassium 6.5, BUN of 66, and creatinine 9.4. INR is 1. Vancomycin level is 28.4. ASSESSMENT AND PLAN: 1. Bradycardia with sinus arrest and junctional rhythm, heart rate in the 40s as well as left anterior fascicular block. We will complete rule out myocardial infarction protocol. We will try tomorrow get the dilute dopamine. Partially, it may be related to the patient's Toprol at home even though was only a small dose of 25 mg. However, we will get an echocardiogram to evaluate for ejection fraction and wall motion abnormality as well as we check a thyroid function test. 2. History of hypertension, change Toprol to Norvasc 10 mg daily. Discontinue p.r.n. clonidine. 3. End-stage renal disease, on hemodialysis. 4. History of peripheral vascular disease, status post metatarsal amputation, on antibiotic with right foot ulcer. 5. Human immunodeficiency virus. 6. Hepatitis C. Thank you very much for allowing me to participate in the care of this patient. Please do not hesitate to contact me for any questions regarding my evaluation. Saturnino Tate M.D. DR: BRUCE JOB#: [id number] CC:
[2016-11-14] MEDS ORDERED: EMTRICITABINE 200 MG ORAL SCH (18:00)
--- NOTE | 2016-11-14 19:44 | Nephrology Progress Note ---
Assessment/Plan Problem List: (1) Osteomyelitis (2) ESRD (end stage renal disease) (3) HTN (hypertension) (4) Hepatitis C (5) Hypoglycemia (6) Vascular disease (7) Valvular cardiomyopathy Plan Dialysis 11/14 via cath without problem and repeat HD 11/15. No fluid overload. His pain and infection could be monitored with amputations and earlier rehab-- defer to pmd in icu after fbradycardia episode, on dopamine, bp nl, cardiology eval reviewed Subjective Constitutional: Reports: weakness HEENT: Reports: no symptoms Genitourinary: Reports: no symptoms Neurologic/Psychiatric: Reports: no symptoms Subjective foot pain Objective Objective Last 24 Hour Vital Signs Date Time Temp Pulse Resp B/P Pulse Ox O2 Delivery O2 Flow Rate FiO2 11/14/16 19:00 70 32 131/43 98 Nasal Cannula 2.0 11/14/16 18:58 98 Nasal Cannula 2.0 28 11/14/16 18:58 Nasal Cannula 2.0 28 11/14/16 18:30 68 32 130/35 99 Nasal Cannula 2.0 11/14/16 18:00 65 30 135/32 100 Nasal Cannula 2.0 11/14/16 18:00 135/32 11/14/16 18:00 135/32 11/14/16 17:30 73 22 134/44 99 Nasal Cannula 2.0 11/14/16 17:00 115/32 11/14/16 17:00 74 22 115/52 98 Nasal Cannula 2.0 11/14/16 16:30 60 20 125/42 98 Nasal Cannula 2.0 11/14/16 16:00 55 17 120/40 94 11/14/16 16:00 55 11/14/16 15:45 93/44 11/14/16 15:30 61 22 141/20 100 11/14/16 15:00 60 16 144/40 97 Nasal Cannula 2.0 11/14/16 14:49 146/40 11/14/16 14:30 60 21 116/35 100 Nasal Cannula 2.0 11/14/16 14:00 57 20 120/43 100 Nasal Cannula 2.0 11/14/16 13:30 97.8 57 28 144/43 96 Nasal Cannula 2.0 11/14/16 13:01 62 28 120/40 95 Room Air 11/14/16 13:00 119/34 11/14/16 12:50 Room Air 11/14/16 12:30 54 30 119/34 96 Room Air 11/14/16 12:00 58 33 122/43 96 Room Air 11/14/16 12:00 122/43 11/14/16 12:00 62 11/14/16 11:30 56 30 124/45 96 Room Air 11/14/16 11:01 58 101/82 11/14/16 11:00 58 32 120/40 96 Room Air 11/14/16 11:00 120/40 11/14/16 10:30 57 32 122/33 96 Room Air 11/14/16 10:00 58 30 120/33 96 Room Air 11/14/16 09:30 56 26 124/35 96 Room Air 11/14/16 09:00 57 21 125/39 94 Room Air 11/14/16 08:30 59 21 119/33 94 Room Air 11/14/16 08:30 97.5 11/14/16 08:00 97.5 58 20 131/42 98 Room Air 11/14/16 08:00 58 11/14/16 07:30 59 18 129/42 97 Room Air 11/14/16 07:00 59 18 129/42 97 Room Air 11/14/16 06:49 57 18 100 Full Face 28 11/14/16 06:42 Nasal Cannula 2.0 11/14/16 06:42 99 Nasal Cannula 2.0 11/14/16 06:31 73 18 123/33 99 Bi-pap 11/14/16 06:00 83 18 127/33 98 Bi-pap 11/14/16 05:30 66 18 131/38 98 Bi-pap 28 11/14/16 05:22 60 14 100 Full Face 28 11/14/16 05:00 119/32 11/14/16 05:00 63 18 119/32 98 Bi-pap 28 11/14/16 04:30 66 17 139/42 93 Bi-pap 28 11/14/16 04:00 120/33 11/14/16 04:00 98.1 67 17 120/33 98 Bi-pap 28 11/14/16 04:00 66 11/14/16 03:30 69 18 117/34 95 Bi-pap 28 11/14/16 03:18 67 22 98 Full Face 22 11/14/16 03:00 69 15 118/36 94 Bi-pap 28 11/14/16 03:00 113/36 11/14/16 02:30 67 16 124/33 94 Bi-pap 28 11/14/16 02:00 62 20 118/28 99 Bi-pap 28 11/14/16 02:00 118/28 11/14/16 01:43 63 23 98 Full Face 28 11/14/16 01:30 62 21 126/33 99 Bi-pap 28 11/14/16 01:00 59 14 116/28 99 Bi-pap 28 11/14/16 01:00 116/28 11/14/16 00:30 106 23 111/18 100 Bi-pap 28 11/14/16 00:14 110/21 11/14/16 00:00 66 11/14/16 00:00 110/21 11/14/16 00:00 98.0 66 24 110/21 100 Bi-pap 28 11/13/16 23:30 89 24 114/27 100 Bi-pap 28 11/13/16 23:09 55 16 98 Full Face 30 11/13/16 23:00 123/33 11/13/16 23:00 56 16 123/33 96 Bi-pap 28 11/13/16 22:30 59 17 125/33 95 Bi-pap 28 11/13/16 22:00 28 11/13/16 22:00 93 16 107/15 97 Nasal Cannula 2.0 11/13/16 22:00 107/15 11/13/16 21:30 97 15 103/12 97 Nasal Cannula 2.0 11/13/16 21:30 97 11/13/16 21:00 74 19 95/21 97 Nasal Cannula 2.0 11/13/16 21:00 95/21 11/13/16 21:00 74 11/13/16 20:31 87/14 11/13/16 20:30 98.1 84 19 87/19 100 Nasal Cannula 2.0 11/13/16 20:30 84 Intake and Output 11/13/16 11/14/16 19:00 07:00 Intake Total 480 ml 339.90 ml Balance 480 ml 339.90 ml Intake Oral 480 ml 140 ml IV Total 199.90 ml Laboratory Tests 11/14/16 04:30: White Blood Count 4.8, Red Blood Count 4.01L, Hemoglobin 11.0L, Hematocrit 35.6L , Mean Corpuscular Volume 89, Mean Corpuscular Hemoglobin 27.3, Mean Corpuscular Hemoglobin Concent 30.8L, Red Cell Distribution Width 21.7H, Platelet Count 206, Mean Platelet Volume 7.9, Neutrophils (%) (Auto) 42.1L, Lymphocytes (%) (Auto) 34.7, Monocytes (%) (Auto) 18.8H, Eosinophils (%) (Auto) 3.0, Basophils (%) (Auto) 1.4, Sodium Level 135, Potassium Level 6.5*H, Chloride Level 93L, Carbon Dioxide Level 20, Anion Gap 22H, Blood Urea Nitrogen 66H, Creatinine 9.4H, Estimat Glomerular Filtration Rate 6.9, Glucose Level 319H , Calcium Level 8.0L, Random Vancomycin Level 18.6 Height (Feet): 6 Height (Inches): 8.00 Weight (Pounds): 177 General Appearance: alert EENT: normal ENT inspection Neck: non-tender Cardiovascular: normal rate, regular rhythm Respiratory/Chest: lungs clear Abdomen: non tender, soft Extremities: other - no edema, dressings on feet Neurologic: aquatics manager II-XII grossly normal DURGA MORE Nov 14, 2016 19:43
[2016-11-14] MEDS ORDERED: Amikacin 500 MG in NS 55 ML IV ONE (20:00)
--- NOTE | 2016-11-14 20:15 | Consultation ---
DATE OF CONSULTATION: 11/14/2016 NEUROLOGICAL CONSULTATION CONSULTING PHYSICIAN: Davy Hurley M.D. PRIMARY PHYSICIAN: Jorge A Chinchilla M.D. REQUESTED PHYSICIAN: Didier Thornton M.D. HISTORY OF PRESENT ILLNESS: This is a 61-year-old man with multiple complicated medical issues stemming from end-stage renal disease, seen in neurological consultation to evaluate the new onset of paroxysmal activity. The patient reportedly was brought to this hospital for assessment of a nonhealing wound and ulcer. During observation, he was noted to have abnormal movement, felt to be a result of hypoglycemia or seizure activities. After he was given IV Ativan and given D50, mental status improved. He had a CT of the brain obtained. This revealed a significant motion artifact with no evidence of acute intracranial abnormality. No hemorrhage. No midline shift. Periventricular hypoattenuation is seen. Following admission to present, there were no further paroxysmal events described. The latest laboratory work included signs of anemia with hemoglobin 11.0 and hematocrit 35.6. Normal coagulation panel. Chemistry panel with potassium 6.5, anion gap of 22, BUN of 66, creatinine 0.4, blood sugar 319, and calcium 8.0. On admission, blood sugar was 29. Toxicology panel unremarkable. T-cell count with CD4 20.8 and hepatitis C antibody more than 11.0. The patient now recalls that about three years ago, he was noted to have right facial droop, this remain unchanged. He is unaware of having seizures in the past. PAST MEDICAL HISTORY: The patient has a history of right heel and foot osteomyelitis, infected wounds, gangrene, necrosis, and required antibiotic treatment, chronic anemia, end-stage renal disease, on hemodialysis, and history of seizures in the past. He has a left arm AV fistula, history of ASD with patch closure, history of amputation of toes on the right foot, hypertension, history of peripheral neuropathy, positive human immunodeficiency virus, hepatitis C, and status post cataract surgeries. MEDICATIONS: Treatment prior to admission, valacyclovir, ammonia, calciferol, clonidine, Plavix, antiviral agents, ketorolac, Aricept, oxycodone, Zosyn, and Renagel. ALLERGIES: Bactrim, heparin, Ambien, meropenem, pork, and prednisone. SOCIAL HISTORY: . Lives with his . No alcohol. No drug abuse. Nonsmoker. REVIEW OF SYMPTOMS: The patient is unaware of having seizures or strokes. He admits having memory issues. Denies headache or dizziness. There is no chest pain. No palpitations. He has generalized weakness. There is shortness of breath on exertion. No urine or bowel incontinence. PHYSICAL EXAMINATION: GENERAL: The patient is a well-developed, cachectic, and ill-appearing man, not in acute distress. VITAL SIGNS: Blood pressure 115/80 and respirations 14. HEENT: Head, normocephalic. No evidence of trauma. Eyes, ears, and throat are clear. NECK: Supple. No meningeal signs. MUSCULOSKELETAL EXAMINATION: Toes amputation of left foot. Sterile gauze placed right above the feet. Peripheral pulses, unable to test dorsal pedis. MENTAL STATUS: He is alert and oriented to his name and age. He is cooperative and follow commands. He is quite forgetful of recent events and was a poor historian. CRANIAL NERVE II: Pupils both responding to light and accommodation. Extraocular movements intact. Visual robbins are full to confrontation. Fundi poorly visualized. CRANIAL NERVE V: Normal corneal responses. CRANIAL NERVE VII: Drooped right nasolabial fold with occasional right facial twitch. CRANIAL NERVES IX THROUGH XII: Tongue is in midline. Symmetric palate elevation. MOTOR EXAMINATION: Mild diffuse rigidity. Able to lift arms and legs against the gravity. No pronation drift. Deep tendon reflexes depressed bilaterally. Plantar response is mute. SENSORY EXAMINATION: Decreased response to pin stimulation in both feet. Reduced proprioception in both feet. GAIT: Not tested. IMPRESSION: 1. History of transient episodes of involuntary movement while in severe hypoglycemia of 28. This may represent an epileptogenic activity, symptomatic. 2. Mild chronic right facial palsy with intermittent twitching. This may present local facial tic due to old facial palsy, rule out partial simple seizure activity. 3. End-stage renal disease, on hemodialysis. 4. Human immunodeficiency virus positive. 5. Hepatitis C positive. 6. Peripheral vascular disease. 7. Diabetes type 2 with diabetic neuropathy. RECOMMENDATION: 1. EEG. 2. MRI of the brain without contrast. 3. Observe for further paroxysmal events, no anticonvulsant at this time unless positive findings. We will follow with you. Thank you for allowing me to see this interesting patient in neurological consultation. Davy Joni Hurley DR: NATALIE JOB#: [id number] CC:
--- NOTE | 2016-11-14 21:45 | Consultation ---
DATE OF CONSULTATION: 11/14/2016 PULMONARY CONSULTATION NOTE CONSULTING PHYSICIAN: Lloyd Turcios M.D. CHIEF COMPLAINT: Sleep apnea. HISTORY OF PRESENT ILLNESS: This is a 61-year-old who is a very pleasant gentleman that I follow in the office for many years. He was admitted on this occasion because of worsening wounds in his right heel. Yesterday, he became hypotensive and bradycardic and was transferred to intensive care and placed on vasopressors. His x-rays are showing some pulmonary edema. He has known sleep apnea and needs orders for his BiPAP. PAST MEDICAL HISTORY: Renal failure, on home dialysis 5 days weekly; osteomyelitis of the left foot and now the right foot, status post partial left foot amputation; chronic hepatitis C; TIA; hemorrhagic telangiectasia syndrome; diabetic autonomic neuropathy; hypertension; diabetes; HIV with T helper cell count of 250. It is noted he has sleep apnea. ALLERGIES: Anticoagulants, meropenem, sulfonamide antibiotics, zolpidem, and pork products. MEDICATIONS: Reviewed. REVIEW OF SYSTEMS: Otherwise unremarkable. He is presently feeling satisfactory without pain or shortness of breath. PHYSICAL EXAMINATION: GENERAL: The patient is alert and responds appropriately. VITAL SIGNS: Stable on low dose of dopamine with some sinus bradycardia noted. HEENT: Head is normocephalic. NECK: No jugular venous distention. CHEST: Clear. CARDIAC: Rhythm is regular. ABDOMEN: Soft and nontender. EXTREMITIES: The right foot has some areas of ulceration. The left foot is partially amputated. Both feet are cool to touch. IMPRESSIONS: 1. Sleep apnea. 2. Sepsis with shock. 3. Right foot osteomyelitis. 4. Chronic hepatitis. 5. OslerWeberRendu syndrome (hemorrhagic telangiectasia). 6. End-stage renal disease, on dialysis. 7. Diabetic autonomic neuropathy. 8. History of hypertension. 9. Human immunodeficiency virus. PLAN: The patient's BiPAP was ordered and he slept well with this. This will be continued. Fluid removal will be used for treatment of his pulmonary edema. Antibiotics will be continued as well as vasopressors as needed. Lloyd Turcios M.D. DR: MS/A JOB#: [id number] CC: Didier Thornton M.D.; Fax#: [phone]
[2016-11-14] MEDS ORDERED: Emtricitabine 200mg tab ORAL SCH (22:00)
[2016-11-15] VITALS (48 sets, daily range): BP systolic 98–143; BP diastolic 17–50
[2016-11-15] MEDS: Cefepime HCl 0.5 GM in D5W 55 ML IVPB SCH (01:45)
[2016-11-15 05:05] LABS: BASOPHILS % (AUTO) 1.6 % (0.0-2.0); EOSINOPHILS % (AUTO) 6.9 % (0.0-3.0); LYMPHOCYTES % (AUTO) 42.1 % (20.0-45.0); MEAN CORPUSCULAR HEMOGLOBIN 27.4 PG (27.0-31.0); MEAN CORPUSCULAR VOLUME 88 FL (80-99); MEAN PLATELET VOLUME 8.6 FL (6.5-10.1); MONOCYTES % (AUTO) 16.8 % (1.0-10.0); NEUTROPHILS % (AUTO) 32.6 % (45.0-75.0); PLATELET COUNT 222 K/UL (150-450); RED BLOOD COUNT 4.02 M/UL (4.70-6.10); RED CELL DISTRIBUTION WIDTH 21.7 % (11.6-14.8); WHITE BLOOD COUNT 3.9 K/UL (4.8-10.8)
[2016-11-15 05:40] LABS: CREATININE 7.9 mg/dL (0.7-1.2); GLOMERULAR FILTRATION RATE 8.5 mL/min (>60); POTASSIUM 4.8 mEQ/L (3.4-4.9)
[2016-11-15 05:56] LABS: TROPONIN I < 0.30 ng/mL (<=0.30)
[2016-11-15] MEDS: Renvela 800mg Pkt NG SCH ×3 (06:23→15:41)
[2016-11-15] MEDS: Hydromorphone 0.5mg/0.5ml inj IVP PRN ×4 (06:32→20:45)
[2016-11-15 06:35] LABS: THYROID STIMULATING HORMONE 1.17 uIU/mL (0.300-4.500)
[2016-11-15] MEDS: metroNIDAZOLE 500mg tab ORAL SCH ×2 (08:28→15:40)
[2016-11-15] MEDS: Sensipar 30mg Tab ORAL SCH (08:28)
[2016-11-15] MEDS: VIRACEPT ORAL SCH ×2 (08:29→18:09)
--- NOTE | 2016-11-15 09:45 | Cardiology Report ---
APPROVED REPORT EKG Measurement Heart [id number] Sinus rhythm with premature atrial complexes Possible Left atrial enlargement Left anterior fascicular block Left ventricular hypertrophy Nonspecific ST abnormality Prolonged QT Abnormal ECG
--- NOTE | 2016-11-15 10:28 | Cardiac Electrophysiology PN ---
Assessment/Plan Assessment/Plan 1. Bradycardia with sinus arrest and junctional rhythm, heart rate in the 40s as well as left anterior fascicular block. Ruled out myocardial infarction . Will taper off dopamine if HR>60. It may be related to the patient's Toprol at home. echo pending. 2. History of hypertension, on Norvasc 10 mg daily. 3. End-stage renal disease, on hemodialysis. 4. History of peripheral vascular disease, status post metatarsal amputation, on antibiotic with right foot ulcer. 5. Human immunodeficiency virus. 6. Hepatitis C. NOE RN Subjective Subjective In ICU still on Dopamine. HR now in 60s.Scheduled for another HD today. Objective Last 24 Hour Vital Signs Date Time Temp Pulse Resp B/P Pulse Ox O2 Delivery O2 Flow Rate FiO2 11/15/16 10:00 63 20 123/29 100 Nasal Cannula 2.0 11/15/16 09:30 69 19 126/39 100 Nasal Cannula 2.0 11/15/16 09:00 61 19 124/39 100 Nasal Cannula 2.0 11/15/16 08:30 63 22 116/39 100 Nasal Cannula 2.0 11/15/16 08:28 63 116/35 11/15/16 08:00 62 19 116/35 98 Nasal Cannula 2.0 11/15/16 08:00 62 11/15/16 07:30 98.7 61 19 111/27 100 Nasal Cannula 2.0 11/15/16 07:07 Nasal Cannula 2.0 28 11/15/16 07:07 100 Nasal Cannula 2.0 28 11/15/16 07:00 98.4 11/15/16 07:00 61 19 107/22 100 Nasal Cannula 2.0 11/15/16 06:30 55 20 120/36 100 Nasal Cannula 2.0 11/15/16 06:00 54 19 118/36 100 Nasal Cannula 2.0 11/15/16 05:38 52 20 100 Full Face 28 11/15/16 05:30 53 18 120/36 100 Nasal Cannula 2.0 11/15/16 05:00 54 19 116/29 100 Nasal Cannula 2.0 11/15/16 04:30 55 17 122/34 100 Nasal Cannula 2.0 11/15/16 04:00 98.4 54 19 119/31 100 Nasal Cannula 2.0 11/15/16 04:00 54 11/15/16 03:30 53 19 120/31 100 Nasal Cannula 2.0 11/15/16 03:26 52 26 100 Full Face 28 11/15/16 03:00 53 20 118/29 99 Nasal Cannula 2.0 11/15/16 02:30 52 18 114/31 99 Nasal Cannula 2.0 11/15/16 02:00 58 18 113/34 99 Nasal Cannula 2.0 11/15/16 01:30 54 18 115/28 99 Nasal Cannula 2.0 11/15/16 01:10 53 20 100 Full Face 28 11/15/16 01:00 58 18 116/24 99 Nasal Cannula 2.0 11/15/16 00:30 58 18 111/34 99 Nasal Cannula 2.0 11/15/16 00:00 98.5 56 18 116/30 99 Nasal Cannula 2.0 11/15/16 00:00 52 11/14/16 23:36 55 14 100 Full Face 28 11/14/16 23:30 57 21 121/30 98 Nasal Cannula 2.0 11/14/16 23:00 28 11/14/16 23:00 58 18 113/34 99 Nasal Cannula 2.0 11/14/16 22:30 61 25 116/37 98 Nasal Cannula 2.0 11/14/16 22:00 67 24 113/41 99 Nasal Cannula 2.0 11/14/16 21:30 63 29 120/33 98 Nasal Cannula 2.0 11/14/16 21:00 64 22 119/34 98 Nasal Cannula 2.0 11/14/16 20:30 69 21 119/34 98 Nasal Cannula 2.0 11/14/16 20:00 70 11/14/16 20:00 98.3 70 27 118/36 98 Nasal Cannula 2.0 11/14/16 19:30 72 30 119/33 98 Nasal Cannula 2.0 11/14/16 19:00 70 32 131/43 98 Nasal Cannula 2.0 11/14/16 18:58 98 Nasal Cannula 2.0 28 11/14/16 18:58 Nasal Cannula 2.0 28 11/14/16 18:30 68 32 130/35 99 Nasal Cannula 2.0 11/14/16 18:00 65 30 135/32 100 Nasal Cannula 2.0 11/14/16 18:00 135/32 11/14/16 18:00 135/32 7/19/17 17:30 73 22 134/44 99 Nasal Cannula 2.0 11/14/16 17:00 115/32 11/14/16 17:00 74 22 115/52 98 Nasal Cannula 2.0 11/14/16 16:30 60 20 125/42 98 Nasal Cannula 2.0 11/14/16 16:00 55 17 120/40 94 11/14/16 16:00 55 11/14/16 15:45 93/44 11/14/16 15:30 61 22 141/20 100 11/14/16 15:00 60 16 144/40 97 Nasal Cannula 2.0 11/14/16 14:49 146/40 11/14/16 14:30 60 21 116/35 100 Nasal Cannula 2.0 11/14/16 14:00 57 20 120/43 100 Nasal Cannula 2.0 11/14/16 13:30 97.8 57 28 144/43 96 Nasal Cannula 2.0 11/14/16 13:01 62 28 120/40 95 Room Air 11/14/16 13:00 119/34 11/14/16 12:50 Room Air 11/14/16 12:30 54 30 119/34 96 Room Air 11/14/16 12:00 58 33 122/43 96 Room Air 11/14/16 12:00 122/43 11/14/16 12:00 62 11/14/16 11:30 56 30 124/45 96 Room Air 11/14/16 11:01 58 101/82 11/14/16 11:00 58 32 120/40 96 Room Air 11/14/16 11:00 120/40 11/14/16 10:30 57 32 122/33 96 Room Air Intake and Output 11/14/16 11/15/16 19:00 07:00 Intake Total 400.602 ml 435.216 ml Output Total 2500 ml Balance -2099.398 ml 435.216 ml Intake Oral 240 ml 200 ml IV Total 160.602 ml 235.216 ml Hemodialysis UF 2500 ml Laboratory Tests Test 11/15/16 04:30 White Blood Count 3.9 K/UL (4.8-10.8) L Red Blood Count 4.02 M/UL (4.70-6.10) L Hemoglobin 11.0 G/DL (14.2-18.0) L Hematocrit 35.6 % (42.0-52.0) L Mean Corpuscular Volume 88 FL (80-99) Mean Corpuscular Hemoglobin 27.4 PG (27.0-31.0) Mean Corpuscular Hemoglobin Concent 31.0 G/DL (32.0-36.0) L Red Cell Distribution Width 21.7 % (11.6-14.8) H Platelet Count 222 K/UL (150-450) Mean Platelet Volume 8.6 FL (6.5-10.1) Neutrophils (%) (Auto) 32.6 % (45.0-75.0) L Lymphocytes (%) (Auto) 42.1 % (20.0-45.0) Monocytes (%) (Auto) 16.8 % (1.0-10.0) H Eosinophils (%) (Auto) 6.9 % (0.0-3.0) H Basophils (%) (Auto) 1.6 % (0.0-2.0) Sodium Level 136 mEQ/L (135-145) Potassium Level 4.8 mEQ/L (3.4-4.9) Chloride Level 96 mEQ/L (98-107) L Carbon Dioxide Level 22 mEQ/L (20-30) Anion Gap 18 (5-15) H Blood Urea Nitrogen 53 mg/dL (7-23) H Creatinine 7.9 mg/dL (0.7-1.2) H Estimat Glomerular Filtration Rate 8.5 mL/min (>60) Glucose Level 203 mg/dL (74-106) #H Calcium Level 8.0 mg/dL (8.6-10.2) L Troponin I < 0.30 ng/mL (<=0.30) Thyroid Stimulating Hormone (TSH) 1.170 uIU/mL (0.300-4.500) Free Thyroxine 0.85 ng/dL (0.86-1.85) L Microbiology Date/Time Source Procedure Growth Status 11/13/16 02:00 Foot Right Gram Stain - Final Resulted 11/13/16 02:00 Foot Right Aerobic Culture Pending Resulted 11/13/16 02:00 Foot Right Anaerobic Culture Pending Resulted Objective HEAD AND NECK: Shows no JVD. LUNGS: Decreased breath sounds. CARDIOVASCULAR: Shows regular S1 and S2. Shows bradycardic. ABDOMEN: Soft. EXTREMITIES: No pitting edema was there in the right foot ulcer as well as left metatarsal amputation. CLIFTON KEARNEY Nov 15, 2016 10:28
[2016-11-15] MEDS ORDERED: DOPamine 400mg/250ml 250 ML IV SCH (11:00)
[2016-11-15] MEDS: DOPamine 400mg/250ml 250 ML IV SCH (13:10)
[2016-11-15] MEDS: oxyCODONE 5mg IR tab ORAL PRN ×2 (14:36→19:18)
--- NOTE | 2016-11-15 15:11 | Infectious Diseases Prog Note ---
Assessment/Plan Assessment/Plan ASSESSMENT AND PLAN: 1. bilateral R>L foot wounds, right foot and heel infected wounds and necrosis - wound culture with yeast, likely polymicrobial - x-rays without osteo of both feet - podiatry f/u noted - continue vancomycin, cefepime, flagy and diflucan - await MRI - pending - wound care per protocol 2. patient getting treated for right heel/foot osteo as outpatient with vancomycin and zosyn based on most recent wound culture in my office 3. End-stage renal disease, on hemodialysis. 4. Hypertension and diabetes, hep c + 5. Human immunodeficiency virus. Continue antiretroviral treatment at this time from home, cd4 ordered. Pt f/u with Dr. Chinchilla for HIV care. 6. Blood sugar and blood pressure control for diabetes and hypertension, per primary. 7. Anemia. 8. Hemodialysis per Renal. 9. Transient ischemic attack. 10. Congestive heart failure. 11. History of osteomyelitis of left foot. 12. Hepatis C. 13. History of seizure. 14. Weakness. 15. Past medical history noted. 16. Allergies to Heparin, meropenem, sulfa, and Zolpidem. 17. MAR was noted. 18. Case was discussed with RN. 19. Social history is negative. 20. Family history is noncontributory. 21. Case discussed with Dr. Thornton. 22. Continue treatment per primary consultants. 23. Wound care protocol. 24. Podiatry followup. 25. Continue Vascular Surgery evaluation. 26. Hypoglycemia treatment per primary. Subjective Constitutional: Denies: fever HEENT: Denies: congestion Respiratory: Denies: shortness of breath Cardiovascular: Denies: chest pain Gastrointestinal/Abdominal: Denies: diarrhea, nausea, vomiting Genitourinary: Reports: other - no agarwal Neurologic: Denies: headache Psychiatric: Denies: depression Skin: Reports: other - wounds covered , Denies: rash Hematologic: Denies: bleeding Musculoskeletal: Denies: pain Allergies: Coded Allergies: HEPARIN (Verified Allergy, Severe, low platelets, 06/11/14) SULFA (SULFONAMIDE ANTIBIOTICS) (Verified Allergy, Severe, nephro toxic, ) ZOLPIDEM (Verified Allergy, Unknown, 05/03/16) MEROPENEM (Verified Adverse Reaction, Intermediate, 04/01/16) Nausea and vomiting Uncoded Allergies: pork products (Allergy, Severe, rashes, 06/11/14) Objective Vital Signs Last 24 Hour Vital Signs Date Time Temp Pulse Resp B/P Pulse Ox O2 Delivery O2 Flow Rate FiO2 11/15/16 14:30 62 18 113/38 98 Nasal Cannula 2.0 11/15/16 14:00 61 18 122/39 98 Nasal Cannula 2.0 11/15/16 14:00 122/39 11/15/16 13:30 65 18 122/41 98 Nasal Cannula 2.0 11/15/16 13:10 117/38 11/15/16 13:00 60 22 117/38 100 Nasal Cannula 2.0 11/15/16 12:30 60 22 120/39 100 Nasal Cannula 2.0 11/15/16 12:00 59 11/15/16 12:00 98.7 11/15/16 12:00 98.5 59 20 115/22 98 Nasal Cannula 2.0 11/15/16 11:33 111/39 11/15/16 11:30 60 20 99/17 98 Nasal Cannula 2.0 11/15/16 11:00 59 18 111/39 100 Nasal Cannula 2.0 11/15/16 10:30 60 18 98/48 100 Nasal Cannula 2.0 11/15/16 10:00 63 20 123/29 100 Nasal Cannula 2.0 11/15/16 09:30 69 19 126/39 100 Nasal Cannula 2.0 11/15/16 09:00 61 19 124/39 100 Nasal Cannula 2.0 11/15/16 08:30 63 22 116/39 100 Nasal Cannula 2.0 11/15/16 08:28 63 116/35 11/15/16 08:00 62 19 116/35 98 Nasal Cannula 2.0 11/15/16 08:00 62 11/15/16 07:30 98.7 61 19 111/27 100 Nasal Cannula 2.0 11/15/16 07:07 Nasal Cannula 2.0 28 11/15/16 07:07 100 Nasal Cannula 2.0 28 11/15/16 07:00 61 19 107/22 100 Nasal Cannula 2.0 11/15/16 06:30 55 20 120/36 100 Nasal Cannula 2.0 11/15/16 06:00 54 19 118/36 100 Nasal Cannula 2.0 11/15/16 05:38 52 20 100 Full Face 28 11/15/16 05:30 53 18 120/36 100 Nasal Cannula 2.0 11/15/16 05:00 54 19 116/29 100 Nasal Cannula 2.0 11/15/16 04:30 55 17 122/34 100 Nasal Cannula 2.0 11/15/16 04:00 98.4 54 19 119/31 100 Nasal Cannula 2.0 11/15/16 04:00 54 11/15/16 03:30 53 19 120/31 100 Nasal Cannula 2.0 11/15/16 03:26 52 26 100 Full Face 28 11/15/16 03:00 53 20 118/29 99 Nasal Cannula 2.0 11/15/16 02:30 52 18 114/31 99 Nasal Cannula 2.0 11/15/16 02:00 58 18 113/34 99 Nasal Cannula 2.0 11/15/16 01:30 54 18 115/28 99 Nasal Cannula 2.0 11/15/16 01:10 53 20 100 Full Face 28 11/15/16 01:00 58 18 116/24 99 Nasal Cannula 2.0 11/15/16 00:30 58 18 111/34 99 Nasal Cannula 2.0 11/15/16 00:00 98.5 56 18 116/30 99 Nasal Cannula 2.0 11/15/16 00:00 52 11/14/16 23:36 55 14 100 Full Face 28 11/14/16 23:30 57 21 121/30 98 Nasal Cannula 2.0 11/14/16 23:00 28 11/14/16 23:00 58 18 113/34 99 Nasal Cannula 2.0 11/14/16 22:30 61 25 116/37 98 Nasal Cannula 2.0 11/14/16 22:00 67 24 113/41 99 Nasal Cannula 2.0 11/14/16 21:30 63 29 120/33 98 Nasal Cannula 2.0 11/14/16 21:00 64 22 119/34 98 Nasal Cannula 2.0 11/14/16 20:30 69 21 119/34 98 Nasal Cannula 2.0 11/14/16 20:00 70 11/14/16 20:00 98.3 70 27 118/36 98 Nasal Cannula 2.0 11/14/16 19:30 72 30 119/33 98 Nasal Cannula 2.0 11/14/16 19:00 70 32 131/43 98 Nasal Cannula 2.0 11/14/16 18:58 98 Nasal Cannula 2.0 28 11/14/16 18:58 Nasal Cannula 2.0 28 11/14/16 18:30 68 32 130/35 99 Nasal Cannula 2.0 11/14/16 18:00 65 30 135/32 100 Nasal Cannula 2.0 11/14/16 18:00 135/32 11/14/16 18:00 135/32 11/14/16 17:30 73 22 134/44 99 Nasal Cannula 2.0 11/14/16 17:00 115/32 11/14/16 17:00 74 22 115/52 98 Nasal Cannula 2.0 11/14/16 16:30 60 20 125/42 98 Nasal Cannula 2.0 11/14/16 16:00 55 17 120/40 94 11/14/16 16:00 55 11/14/16 15:45 93/44 11/14/16 15:30 61 22 141/20 100 Height (Feet): 6 Height (Inches): 8.00 Weight (Pounds): 174 General Appearance: no acute distress HEENT: normocephalic, atraumatic, anicteric, mucous membranes moist, PERRL, EOMI, pharynx normal, supple, no JVD Respiratory/Chest: lungs clear, normal breath sounds, no respiratory distress, no accessory muscle use Cardiovascular: normal rate, regular rhythm, no gallop/murmur, no JVD Abdomen: normal bowel sounds, soft, non tender, no organomegaly, non distended Genitourinary: other - no agarwal Extremities: other - wounds covered Skin: no rash Neurologic/Psychiatric: hot knife cutter II-XII grossly normal, alert, responsive Lymphatic: no neck adenopathy Musculoskeletal: no effusion Objective bilateral foot x-rays - no osteo chest x-ray - atx MRI - pending Microbiology Date/Time Source Procedure Growth Status 11/11/16 16:05 Blood Blood Culture - Preliminary NO GROWTH AFTER 72 HOURS Resulted 11/10/16 19:50 Nasal Nares MRSA Culture - Final NO METHICILLIN RESISTANT STAPH AUREUS... Complete 11/13/16 02:00 Foot Right Gram Stain - Final Resulted 11/13/16 02:00 Aerobic Culture - Preliminary YEAST Resulted 11/13/16 02:00 Foot Right Anaerobic Culture Pending Resulted Microbiology Date/Time Source Procedure Growth Status 11/13/16 02:00 Foot Right Gram Stain - Final Resulted 11/13/16 02:00 Aerobic Culture - Preliminary YEAST Resulted 11/13/16 02:00 Foot Right Anaerobic Culture Pending Resulted Laboratory Tests Test 11/15/16 04:30 White Blood Count 3.9 K/UL (4.8-10.8) L Red Blood Count 4.02 M/UL (4.70-6.10) L Hemoglobin 11.0 G/DL (14.2-18.0) L Hematocrit 35.6 % (42.0-52.0) L Mean Corpuscular Volume 88 FL (80-99) Mean Corpuscular Hemoglobin 27.4 PG (27.0-31.0) Mean Corpuscular Hemoglobin Concent 31.0 G/DL (32.0-36.0) L Red Cell Distribution Width 21.7 % (11.6-14.8) H Platelet Count 222 K/UL (150-450) Mean Platelet Volume 8.6 FL (6.5-10.1) Neutrophils (%) (Auto) 32.6 % (45.0-75.0) L Lymphocytes (%) (Auto) 42.1 % (20.0-45.0) Monocytes (%) (Auto) 16.8 % (1.0-10.0) H Eosinophils (%) (Auto) 6.9 % (0.0-3.0) H Basophils (%) (Auto) 1.6 % (0.0-2.0) Sodium Level 136 mEQ/L (135-145) Potassium Level 4.8 mEQ/L (3.4-4.9) Chloride Level 96 mEQ/L (98-107) L Carbon Dioxide Level 22 mEQ/L (20-30) Anion Gap 18 (5-15) H Blood Urea Nitrogen 53 mg/dL (7-23) H Creatinine 7.9 mg/dL (0.7-1.2) H Estimat Glomerular Filtration Rate 8.5 mL/min (>60) Glucose Level 203 mg/dL (74-106) #H Calcium Level 8.0 mg/dL (8.6-10.2) L Troponin I < 0.30 ng/mL (<=0.30) Thyroid Stimulating Hormone (TSH) 1.170 uIU/mL (0.300-4.500) Free Thyroxine 0.85 ng/dL (0.86-1.85) L Current Medications Medications (Trade) Dose Ordered Sig/Zohaib Route PRN Reason Start Time Stop Time Status Last Admin Dose Admin Amlodipine Besylate 5 mg 5 mg DAILY ORAL 11/14/16 11:00 12/14/16 10:59 11/15/16 08:28 Cefepime HCl/ Dextrose (Maxipime/D5W) 55 ml @ 110 mls/hr Q24H IVPB 11/14/16 01:00 11/21/16 00:59 11/15/16 01:45 Chlorhexidine Gluconate 1 applic 1 applic DAILY TOPIC 11/15/16 21:00 12/15/16 20:59 Cinacalcet (Sensipar) 30 mg DAILY ORAL 11/14/16 09:00 12/14/16 08:59 11/15/16 08:28 Clopidogrel Bisulfate (Plavix) 75 mg DAILY ORAL 11/14/16 09:00 12/14/16 08:59 11/15/16 08:28 Dopamine HCl/ Dextrose 250 ml @ 0 mls/hr Q24H IV 11/15/16 13:15 12/15/16 13:14 11/15/16 13:10 Emtricitabine (Emtriva) 200 mg POSTHD@WED,SAT ORAL 11/14/16 22:00 12/14/16 21:59 11/14/16 22:02 Fluconazole/ Sodium Chloride (Diflucan 200mg/ 100ml Premix) 100 ml @ 100 mls/hr Q24H IV 11/15/16 15:00 11/22/16 14:59 Hydromorphone HCl (Dilaudid) 0.5 mg Q4H PRN IVP Severe Pain (Pain Scale 7-10) 11/14/16 09:45 11/20/16 09:44 11/15/16 11:33 Metronidazole (Flagyl) 500 mg Q8H ORAL 11/14/16 00:00 11/21/16 00:00 11/15/16 08:28 Nateglinide (Starlix) 120 mg TIAC ORAL 11/14/16 06:30 12/14/16 06:29 11/15/16 11:34 Oxycodone HCl (Roxicodone) 5 mg Q4H PRN ORAL For Pain 4-6 11/13/16 22:30 11/20/16 22:29 11/15/16 14:36 Patient Own Medication (Patient's Own Med) 1 ea QWEEK ORAL 11/17/16 18:00 12/17/16 17:59 UNV Patient Own Medication (Patient's Own Med) 2 ea BID ORAL 11/14/16 09:00 12/14/16 08:59 11/15/16 08:29 Sevelamer Carbonate (Renvela) 3,200 mg TIAC NG 11/13/16 21:30 12/13/16 21:29 11/15/16 11:34 Sodium Chloride (Sodium Chloride 1000ml bag) 1,000 ml @ 500 mls/hr Q2H PRN IVLG sbp<90 during hd 11/15/16 06:00 11/15/16 23:59 Temazepam (Restoril) 15 mg BEDTIME ORAL 11/14/16 22:00 11/21/16 21:59 11/14/16 22:04 Vancomycin HCl (Vanco rx to dose) 1 ea DAILY PRN MISC Per rx protocol 11/14/16 09:00 12/14/16 08:59 INOCENCIA DOS SANTOS Nov 15, 2016 15:11
--- NOTE | 2016-11-15 15:34 | Internal Med Progress Note ---
Subjective Physician Name Papa Lunsford Attending Physician Didier Thornton Current Medications Medications (Trade) Dose Ordered Sig/Zohaib Route PRN Reason Start Time Stop Time Status Last Admin Dose Admin Amlodipine Besylate 5 mg 5 mg DAILY ORAL 11/14/16 11:00 12/14/16 10:59 11/15/16 08:28 Cefepime HCl/ Dextrose (Maxipime/D5W) 55 ml @ 110 mls/hr Q24H IVPB 11/14/16 01:00 11/21/16 00:59 11/15/16 01:45 Chlorhexidine Gluconate 1 applic 1 applic DAILY TOPIC 11/15/16 21:00 12/15/16 20:59 Cinacalcet (Sensipar) 30 mg DAILY ORAL 11/14/16 09:00 12/14/16 08:59 11/15/16 08:28 Clopidogrel Bisulfate (Plavix) 75 mg DAILY ORAL 11/14/16 09:00 12/14/16 08:59 11/15/16 08:28 Dopamine HCl/ Dextrose 250 ml @ 0 mls/hr Q24H IV 11/15/16 13:15 12/15/16 13:14 11/15/16 13:10 Emtricitabine (Emtriva) 200 mg POSTHD@WED,SAT ORAL 11/14/16 22:00 12/14/16 21:59 11/14/16 22:02 Fluconazole/ Sodium Chloride (Diflucan 200mg/ 100ml Premix) 100 ml @ 100 mls/hr Q24H IV 11/15/16 15:00 11/22/16 14:59 Hydromorphone HCl (Dilaudid) 0.5 mg Q4H PRN IVP Severe Pain (Pain Scale 7-10) 11/14/16 09:45 11/20/16 09:44 11/15/16 11:33 Metronidazole (Flagyl) 500 mg Q8H ORAL 11/14/16 00:00 11/21/16 00:00 11/15/16 08:28 Nateglinide (Starlix) 120 mg TIAC ORAL 11/14/16 06:30 12/14/16 06:29 11/15/16 11:34 Oxycodone HCl (Roxicodone) 5 mg Q4H PRN ORAL For Pain 4-6 11/13/16 22:30 11/20/16 22:29 11/15/16 14:36 Patient Own Medication (Patient's Own Med) 1 ea QWEEK ORAL 11/17/16 18:00 12/17/16 17:59 UNV Patient Own Medication (Patient's Own Med) 2 ea BID ORAL 11/14/16 09:00 12/14/16 08:59 11/15/16 08:29 Sevelamer Carbonate (Renvela) 3,200 mg TIAC NG 11/13/16 21:30 12/13/16 21:29 11/15/16 11:34 Sodium Chloride (Sodium Chloride 1000ml bag) 1,000 ml @ 500 mls/hr Q2H PRN IVLG sbp<90 during hd 11/15/16 06:00 11/15/16 23:59 Temazepam (Restoril) 15 mg BEDTIME ORAL 11/14/16 22:00 11/21/16 21:59 11/14/16 22:04 Vancomycin HCl (Vanco rx to dose) 1 ea DAILY PRN MISC Per rx protocol 11/14/16 09:00 12/14/16 08:59 Allergies: Coded Allergies: HEPARIN (Verified Allergy, Severe, low platelets, 06/11/14) SULFA (SULFONAMIDE ANTIBIOTICS) (Verified Allergy, Severe, nephro toxic, ) ZOLPIDEM (Verified Allergy, Unknown, 05/03/16) MEROPENEM (Verified Adverse Reaction, Intermediate, 04/01/16) Nausea and vomiting Uncoded Allergies: pork products (Allergy, Severe, rashes, 06/11/14) Subjective in ICU, awake, alert, responsive, No CP, No SOB Objective Last Vital Signs Date Time Temp Pulse Resp B/P Pulse Ox O2 Delivery O2 Flow Rate FiO2 11/15/16 15:00 62 18 115/39 98 Nasal Cannula 2.0 11/15/16 12:00 98.7 11/15/16 07:07 28 Laboratory Tests Test 11/15/16 04:30 White Blood Count 3.9 K/UL (4.8-10.8) L Red Blood Count 4.02 M/UL (4.70-6.10) L Hemoglobin 11.0 G/DL (14.2-18.0) L Hematocrit 35.6 % (42.0-52.0) L Mean Corpuscular Volume 88 FL (80-99) Mean Corpuscular Hemoglobin 27.4 PG (27.0-31.0) Mean Corpuscular Hemoglobin Concent 31.0 G/DL (32.0-36.0) L Red Cell Distribution Width 21.7 % (11.6-14.8) H Platelet Count 222 K/UL (150-450) Mean Platelet Volume 8.6 FL (6.5-10.1) Neutrophils (%) (Auto) 32.6 % (45.0-75.0) L Lymphocytes (%) (Auto) 42.1 % (20.0-45.0) Monocytes (%) (Auto) 16.8 % (1.0-10.0) H Eosinophils (%) (Auto) 6.9 % (0.0-3.0) H Basophils (%) (Auto) 1.6 % (0.0-2.0) Sodium Level 136 mEQ/L (135-145) Potassium Level 4.8 mEQ/L (3.4-4.9) Chloride Level 96 mEQ/L (98-107) L Carbon Dioxide Level 22 mEQ/L (20-30) Anion Gap 18 (5-15) H Blood Urea Nitrogen 53 mg/dL (7-23) H Creatinine 7.9 mg/dL (0.7-1.2) H Estimat Glomerular Filtration Rate 8.5 mL/min (>60) Glucose Level 203 mg/dL (74-106) #H Calcium Level 8.0 mg/dL (8.6-10.2) L Troponin I < 0.30 ng/mL (<=0.30) Thyroid Stimulating Hormone (TSH) 1.170 uIU/mL (0.300-4.500) Free Thyroxine 0.85 ng/dL (0.86-1.85) L Microbiology Date/Time Source Procedure Growth Status 11/13/16 02:00 Foot Right Gram Stain - Final Resulted 11/13/16 02:00 Aerobic Culture - Preliminary YEAST Resulted 11/13/16 02:00 Foot Right Anaerobic Culture Pending Resulted Intake and Output 11/14/16 11/15/16 19:00 07:00 Intake Total 400.602 ml 435.216 ml Output Total 2500 ml Balance -2099.398 ml 435.216 ml Intake Oral 240 ml 200 ml IV Total 160.602 ml 235.216 ml Hemodialysis UF 2500 ml Objective General: No acute distress, awake and alert, in ICU HEENT: NCAT, sclera anicteric, PERRL, EOMI. Neck: Supple, no significant jugular venous distention, Lungs: Good inspiratory effort, clear to auscultation bilaterally, no Wheeze or Rales. Chest Wall: Left side PermCath. Heart: Regular rate and rhythm, normal S1/S2, no murmur Abdomen: soft, nontender, nondistended. Normoactive bowel sounds. / Rectal: Refused and deferred. Extremities: No Cyanosis , clubbing or edema. Right Foot dressing intact, Left foot TMA. Right UE Midline cath. Left UE AVF nonfunctional, Neuro: A&O x 3, Able to move all extremities Skin: warm, no rashes, Psych: Normal mood and affect Assessment/Plan Assessment/Plan 1. Obstructive Sleep apnea. 2. Sepsis with shock. 3. Right foot osteomyelitis. 4. Chronic hepatitis. 5. OslerWeberRendu syndrome (hemorrhagic telangiectasia). 6. End-stage renal disease, on Hemodialysis. 7. Diabetic autonomic neuropathy. 8. History of hypertension. 9. Human immunodeficiency virus. PLAN: wean off pressor Abx: Vanco / Cefepime/ Flagyl Monitor Labs and Cultures Dialysis F/U with Pulmonary Recommendations Papa Lunsford MD Nov 15, 2016 15:34
--- NOTE | 2016-11-15 17:00 | Electroencephalogram ---
DATE OF PROCEDURE: 11/13/2016 REQUESTING PHYSICIAN: Didier Thornton M.D. HISTORY: This is a 61-year-old man with a end-stage renal disease, hypertension, TIA, chronic seizure disorder, positive HIV, currently treated with Dilaudid, antibiotics and oxycodone. TECHNIQUE: EEG was done using 18 electrodes placed scalp to scalp, scalp to ear montages according to 10/20 International System. During the recording, described as being awake, drowsy, or asleep, but fairly cooperative. Throughout most wakeful portions of recording, background activity consists of a low to medium voltage averaging 5-6 cycles per second theta activities bilaterally with the appropriate response to physiological stimulation. Photic stimulation from 3 to 32 hertz result in mild diffuse slowing. No asymmetry from [id number]. No spike or wave activities noted. IMPRESSION: Abnormal electroencephalogram in presence of mild to moderate diffuse slowing compatible with encephalopathy. COMMENT: Absence of paroxysmal event does not rule out seizure disorder. The above abnormality indicate a global cerebral dysfunction, may relate to underlying toxic, metabolic or diffuse structural abnormalities. Clinical correlation is necessary. Davy Hurley M.D. DR: SOTERO JOB#: [id number] CC:
--- NOTE | 2016-11-15 17:13 | Pulmonology Progress Note ---
Assessment/Plan Assessment/Plan 1. Sleep apnea. 2. Sepsis with shock. 3. Right foot osteomyelitis. 4. Chronic hepatitis. 5. OslerWeberRendu syndrome (hemorrhagic telangiectasia). 6. End-stage renal disease, on dialysis. 7. Diabetic autonomic neuropathy. 8. History of hypertension. 9. Human immunodeficiency virus. tolerated BiPAP last night note echo with RA mass, possible thrombus or SBE was not seen on [facility] in June, he has hemorrhagic telangectasia and will bleed with anticoagulants disc w and Dr Bianchi cont BiPAP Subjective Constitutional: Reports: fatigue Allergies: Coded Allergies: HEPARIN (Verified Allergy, Severe, low platelets, 06/11/14) SULFA (SULFONAMIDE ANTIBIOTICS) (Verified Allergy, Severe, nephro toxic, ) ZOLPIDEM (Verified Allergy, Unknown, 05/03/16) MEROPENEM (Verified Adverse Reaction, Intermediate, 04/01/16) Nausea and vomiting Uncoded Allergies: pork products (Allergy, Severe, rashes, 06/11/14) Objective Last 24 Hour Vital Signs Date Time Temp Pulse Resp B/P Pulse Ox O2 Delivery O2 Flow Rate FiO2 11/15/16 16:20 98.7 11/15/16 15:30 63 20 126/41 100 Nasal Cannula 2.0 11/15/16 15:00 62 18 115/39 98 Nasal Cannula 2.0 11/15/16 15:00 115/39 11/15/16 14:30 62 18 113/38 98 Nasal Cannula 2.0 11/15/16 14:00 61 18 122/39 98 Nasal Cannula 2.0 11/15/16 14:00 122/39 11/15/16 13:30 65 18 122/41 98 Nasal Cannula 2.0 11/15/16 13:10 117/38 11/15/16 13:00 60 22 117/38 100 Nasal Cannula 2.0 11/15/16 12:30 60 22 120/39 100 Nasal Cannula 2.0 11/15/16 12:00 59 11/15/16 12:00 98.5 59 20 115/22 98 Nasal Cannula 2.0 11/15/16 11:33 111/39 11/15/16 11:30 60 20 99/17 98 Nasal Cannula 2.0 11/15/16 11:00 59 18 111/39 100 Nasal Cannula 2.0 11/15/16 10:30 60 18 98/48 100 Nasal Cannula 2.0 11/15/16 10:00 63 20 123/29 100 Nasal Cannula 2.0 11/15/16 09:30 69 19 126/39 100 Nasal Cannula 2.0 11/15/16 09:00 61 19 124/39 100 Nasal Cannula 2.0 11/15/16 08:30 63 22 116/39 100 Nasal Cannula 2.0 11/15/16 08:28 63 116/35 11/15/16 08:00 62 19 116/35 98 Nasal Cannula 2.0 11/15/16 08:00 62 11/15/16 07:30 98.7 61 19 111/27 100 Nasal Cannula 2.0 11/15/16 07:07 Nasal Cannula 2.0 11/15/16 07:07 100 Nasal Cannula 2.0 11/15/16 07:00 61 19 107/22 100 Nasal Cannula 2.0 11/15/16 06:30 55 20 120/36 100 Nasal Cannula 2.0 11/15/16 06:00 54 19 118/36 100 Nasal Cannula 2.0 11/15/16 05:38 52 20 100 Full Face 28 11/15/16 05:30 53 18 120/36 100 Nasal Cannula 2.0 11/15/16 05:00 54 19 116/29 100 Nasal Cannula 2.0 11/15/16 04:30 55 17 122/34 100 Nasal Cannula 2.0 11/15/16 04:00 98.4 54 19 119/31 100 Nasal Cannula 2.0 11/15/16 04:00 54 11/15/16 03:30 53 19 120/31 100 Nasal Cannula 2.0 11/15/16 03:26 52 26 100 Full Face 28 11/15/16 03:00 53 20 118/29 99 Nasal Cannula 2.0 11/15/16 02:30 52 18 114/31 99 Nasal Cannula 2.0 11/15/16 02:00 58 18 113/34 99 Nasal Cannula 2.0 11/15/16 01:30 54 18 115/28 99 Nasal Cannula 2.0 11/15/16 01:10 53 20 100 Full Face 28 11/15/16 01:00 58 18 116/24 99 Nasal Cannula 2.0 11/15/16 00:30 58 18 111/34 99 Nasal Cannula 2.0 11/15/16 00:00 98.5 56 18 116/30 99 Nasal Cannula 2.0 11/15/16 00:00 52 11/14/16 23:36 55 14 100 Full Face 28 11/14/16 23:30 57 21 121/30 98 Nasal Cannula 2.0 11/14/16 23:00 28 11/14/16 23:00 58 18 113/34 99 Nasal Cannula 2.0 11/14/16 22:30 61 25 116/37 98 Nasal Cannula 2.0 11/14/16 22:00 67 24 113/41 99 Nasal Cannula 2.0 11/14/16 21:30 63 29 120/33 98 Nasal Cannula 2.0 11/14/16 21:00 64 22 119/34 98 Nasal Cannula 2.0 11/14/16 20:30 69 21 119/34 98 Nasal Cannula 2.0 11/14/16 20:00 70 11/14/16 20:00 98.3 70 27 118/36 98 Nasal Cannula 2.0 11/14/16 19:30 72 30 119/33 98 Nasal Cannula 2.0 11/14/16 19:00 70 32 131/43 98 Nasal Cannula 2.0 11/14/16 18:58 98 Nasal Cannula 2.0 28 11/14/16 18:58 Nasal Cannula 2.0 28 11/14/16 18:30 68 32 130/35 99 Nasal Cannula 2.0 11/14/16 18:00 65 30 135/32 100 Nasal Cannula 2.0 11/14/16 18:00 135/32 11/14/16 18:00 135/32 11/14/16 17:30 73 22 134/44 99 Nasal Cannula 2.0 Intake and Output 11/14/16 11/15/16 19:00 07:00 Intake Total 400.602 ml 435.216 ml Output Total 2500 ml Balance -2099.398 ml 435.216 ml Intake Oral 240 ml 200 ml IV Total 160.602 ml 235.216 ml Hemodialysis UF 2500 ml General Appearance: no acute distress HEENT: atraumatic Microbiology Date/Time Source Procedure Growth Status 11/13/16 02:00 Foot Right Gram Stain - Final Resulted 11/13/16 02:00 Aerobic Culture - Preliminary YEAST Resulted 11/13/16 02:00 Foot Right Anaerobic Culture Pending Resulted Laboratory Tests 11/15/16 04:30: White Blood Count 3.9L, Red Blood Count 4.02L, Hemoglobin 11.0L, Hematocrit 35.6L, Mean Corpuscular Volume 88, Mean Corpuscular Hemoglobin 27.4, Mean Corpuscular Hemoglobin Concent 31.0L, Red Cell Distribution Width 21.7H, Platelet Count 222, Mean Platelet Volume 8.6, Neutrophils (%) (Auto) 32.6L, Lymphocytes (%) (Auto) 42.1, Monocytes (%) (Auto) 16.8H, Eosinophils (%) (Auto) 6.9H, Basophils (%) (Auto) 1.6, Sodium Level 136, Potassium Level 4.8, Chloride Level 96L, Carbon Dioxide Level 22, Anion Gap 18H, Blood Urea Nitrogen 53H, Creatinine 7.9H, Estimat Glomerular Filtration Rate 8.5, Glucose Level 203#H, Calcium Level 8.0L, Troponin I < 0.30, Thyroid Stimulating Hormone (TSH) 1.170, Free Thyroxine 0.85L Current Medications Medications (Trade) Dose Ordered Sig/Zohaib Route PRN Reason Start Time Stop Time Status Last Admin Dose Admin Amlodipine Besylate 5 mg 5 mg DAILY ORAL 11/14/16 11:00 12/14/16 10:59 11/15/16 08:28 Cefepime HCl/ Dextrose (Maxipime/D5W) 55 ml @ 110 mls/hr Q24H IVPB 11/14/16 01:00 11/21/16 00:59 11/15/16 01:45 Chlorhexidine Gluconate 1 applic 1 applic DAILY TOPIC 11/15/16 21:00 12/15/16 20:59 Cinacalcet (Sensipar) 30 mg DAILY ORAL 11/14/16 09:00 12/14/16 08:59 11/15/16 08:28 Clopidogrel Bisulfate (Plavix) 75 mg DAILY ORAL 11/14/16 09:00 12/14/16 08:59 11/15/16 08:28 Dopamine HCl/ Dextrose 250 ml @ 0 mls/hr Q24H IV 11/15/16 13:15 12/15/16 13:14 11/15/16 13:10 Emtricitabine (Emtriva) 200 mg POSTHD@WED,SAT ORAL 11/14/16 22:00 12/14/16 21:59 11/14/16 22:02 Fluconazole/ Sodium Chloride (Diflucan 200mg/ 100ml Premix) 100 ml @ 100 mls/hr Q24H IV 11/15/16 15:00 11/22/16 14:59 11/15/16 15:40 Hydromorphone HCl (Dilaudid) 0.5 mg Q4H PRN IVP Severe Pain (Pain Scale 7-10) 11/14/16 09:45 11/20/16 09:44 11/15/16 15:50 Metronidazole (Flagyl) 500 mg Q8H ORAL 11/14/16 00:00 11/21/16 00:00 11/15/16 15:40 Nateglinide (Starlix) 120 mg TIAC ORAL 11/14/16 06:30 12/14/16 06:29 11/15/16 15:41 Oxycodone HCl (Roxicodone) 5 mg Q4H PRN ORAL For Pain 4-6 11/13/16 22:30 11/20/16 22:29 11/15/16 14:36 Patient Own Medication (Patient's Own Med) 1 ea QWEEK ORAL 11/17/16 18:00 12/17/16 17:59 UNV Patient Own Medication (Patient's Own Med) 2 ea BID ORAL 11/14/16 09:00 12/14/16 08:59 11/15/16 08:29 Sevelamer Carbonate (Renvela) 3,200 mg TIAC NG 11/13/16 21:30 12/13/16 21:29 11/15/16 15:41 Sodium Chloride (Sodium Chloride 1000ml bag) 1,000 ml @ 500 mls/hr Q2H PRN IVLG sbp<90 during hd 11/15/16 06:00 11/15/16 23:59 Temazepam (Restoril) 15 mg BEDTIME ORAL 11/14/16 22:00 11/21/16 21:59 11/14/16 22:04 Vancomycin HCl (Vanco rx to dose) 1 ea DAILY PRN MISC Per rx protocol 11/14/16 09:00 12/14/16 08:59 COSME DE OLIVEIRA Nov 15, 2016 17:13
--- NOTE | 2016-11-15 17:32 | Nephrology Progress Note ---
Assessment/Plan Problem List: (1) Osteomyelitis (2) ESRD (end stage renal disease) (3) HTN (hypertension) (4) Hepatitis C (5) Hypoglycemia (6) Vascular disease (7) Valvular cardiomyopathy (8) Rkcmd-Onhqf-Aqogw syndrome Plan Dialysis 11/15 via cath, lines clotted and replaced and repeat HD 11/17. No fluid overload. His pain and infection could be monitored with amputations and earlier rehab--defer to pmd in icu after fbradycardia episode, on dopamine, bp nl, cardiology eval reviewed , has RA mass. With OWR high risk of hemorrhage if anticoagulated--d/w Dr. Tate Subjective Constitutional: Reports: weakness HEENT: Reports: no symptoms Genitourinary: Reports: no symptoms Neurologic/Psychiatric: Reports: no symptoms Subjective foot pain Objective Objective Last 24 Hour Vital Signs Date Time Temp Pulse Resp B/P Pulse Ox O2 Delivery O2 Flow Rate FiO2 11/15/16 17:00 69 18 130/38 100 Nasal Cannula 2.0 11/15/16 16:30 62 20 140/50 100 Nasal Cannula 2.0 11/15/16 16:20 98.7 11/15/16 16:00 98.2 63 22 126/38 100 Nasal Cannula 2.0 11/15/16 16:00 62 11/15/16 15:30 63 20 126/41 100 Nasal Cannula 2.0 11/15/16 15:00 62 18 115/39 98 Nasal Cannula 2.0 11/15/16 15:00 115/39 11/15/16 14:30 62 18 113/38 98 Nasal Cannula 2.0 11/15/16 14:00 61 18 122/39 98 Nasal Cannula 2.0 11/15/16 14:00 122/39 11/15/16 13:30 65 18 122/41 98 Nasal Cannula 2.0 11/15/16 13:10 117/38 11/15/16 13:00 60 22 117/38 100 Nasal Cannula 2.0 11/15/16 12:30 60 22 120/39 100 Nasal Cannula 2.0 11/15/16 12:00 59 11/15/16 12:00 98.5 59 20 115/22 98 Nasal Cannula 2.0 11/15/16 11:33 111/39 11/15/16 11:30 60 20 99/17 98 Nasal Cannula 2.0 11/15/16 11:00 59 18 111/39 100 Nasal Cannula 2.0 11/15/16 10:30 60 18 98/48 100 Nasal Cannula 2.0 11/15/16 10:00 63 20 123/29 100 Nasal Cannula 2.0 11/15/16 09:30 69 19 126/39 100 Nasal Cannula 2.0 11/15/16 09:00 61 19 124/39 100 Nasal Cannula 2.0 11/15/16 08:30 63 22 116/39 100 Nasal Cannula 2.0 11/15/16 08:28 63 116/35 11/15/16 08:00 62 19 116/35 98 Nasal Cannula 2.0 11/15/16 08:00 62 11/15/16 07:30 98.7 61 19 111/27 100 Nasal Cannula 2.0 11/15/16 07:07 Nasal Cannula 2.0 28 11/15/16 07:07 100 Nasal Cannula 2.0 28 11/15/16 07:00 61 19 107/22 100 Nasal Cannula 2.0 11/15/16 06:30 55 20 120/36 100 Nasal Cannula 2.0 11/15/16 06:00 54 19 118/36 100 Nasal Cannula 2.0 11/15/16 05:38 52 20 100 Full Face 28 11/15/16 05:30 53 18 120/36 100 Nasal Cannula 2.0 11/15/16 05:00 54 19 116/29 100 Nasal Cannula 2.0 11/15/16 04:30 55 17 122/34 100 Nasal Cannula 2.0 11/15/16 04:00 98.4 54 19 119/31 100 Nasal Cannula 2.0 11/15/16 04:00 54 11/15/16 03:30 53 19 120/31 100 Nasal Cannula 2.0 11/15/16 03:26 52 26 100 Full Face 28 11/15/16 03:00 53 20 118/29 99 Nasal Cannula 2.0 11/15/16 02:30 52 18 114/31 99 Nasal Cannula 2.0 11/15/16 02:00 58 18 113/34 99 Nasal Cannula 2.0 11/15/16 01:30 54 18 115/28 99 Nasal Cannula 2.0 11/15/16 01:10 53 20 100 Full Face 28 11/15/16 01:00 58 18 116/24 99 Nasal Cannula 2.0 11/15/16 00:30 58 18 111/34 99 Nasal Cannula 2.0 11/15/16 00:00 98.5 56 18 116/30 99 Nasal Cannula 2.0 11/15/16 00:00 52 11/14/16 23:36 55 14 100 Full Face 28 11/14/16 23:30 57 21 121/30 98 Nasal Cannula 2.0 11/14/16 23:00 28 11/14/16 23:00 58 18 113/34 99 Nasal Cannula 2.0 11/14/16 22:30 61 25 116/37 98 Nasal Cannula 2.0 11/14/16 22:00 67 24 113/41 99 Nasal Cannula 2.0 11/14/16 21:30 63 29 120/33 98 Nasal Cannula 2.0 11/14/16 21:00 64 22 119/34 98 Nasal Cannula 2.0 11/14/16 20:30 69 21 119/34 98 Nasal Cannula 2.0 11/14/16 20:00 70 11/14/16 20:00 98.3 70 27 118/36 98 Nasal Cannula 2.0 11/14/16 19:30 72 30 119/33 98 Nasal Cannula 2.0 11/14/16 19:00 70 32 131/43 98 Nasal Cannula 2.0 11/14/16 18:58 98 Nasal Cannula 2.0 28 11/14/16 18:58 Nasal Cannula 2.0 28 11/14/16 18:30 68 32 130/35 99 Nasal Cannula 2.0 11/14/16 18:00 65 30 135/32 100 Nasal Cannula 2.0 11/14/16 18:00 135/32 11/14/16 18:00 135/32 11/14/16 17:30 73 22 134/44 99 Nasal Cannula 2.0 Intake and Output 11/14/16 11/15/16 19:00 07:00 Intake Total 400.602 ml 435.216 ml Output Total 2500 ml Balance -2099.398 ml 435.216 ml Intake Oral 240 ml 200 ml IV Total 160.602 ml 235.216 ml Hemodialysis UF 2500 ml Laboratory Tests 11/15/16 04:30: White Blood Count 3.9L, Red Blood Count 4.02L, Hemoglobin 11.0L, Hematocrit 35.6L, Mean Corpuscular Volume 88, Mean Corpuscular Hemoglobin 27.4, Mean Corpuscular Hemoglobin Concent 31.0L, Red Cell Distribution Width 21.7H, Platelet Count 222, Mean Platelet Volume 8.6, Neutrophils (%) (Auto) 32.6L, Lymphocytes (%) (Auto) 42.1, Monocytes (%) (Auto) 16.8H, Eosinophils (%) (Auto) 6.9H, Basophils (%) (Auto) 1.6, Sodium Level 136, Potassium Level 4.8, Chloride Level 96L, Carbon Dioxide Level 22, Anion Gap 18H, Blood Urea Nitrogen 53H, Creatinine 7.9H, Estimat Glomerular Filtration Rate 8.5, Glucose Level 203#H, Calcium Level 8.0L, Troponin I < 0.30, Thyroid Stimulating Hormone (TSH) 1.170, Free Thyroxine 0.85L Height (Feet): 6 Height (Inches): 8.00 Weight (Pounds): 174 General Appearance: no apparent distress, alert EENT: normal ENT inspection Neck: normal alignment Cardiovascular: normal rate, regular rhythm Respiratory/Chest: lungs clear Abdomen: non tender, soft Extremities: other - no edema, dry dressig feet 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
[2016-11-15] MEDS ORDERED: Dyna-Hex 2% Top Sol 8oz TOPIC SCH (21:00)
[2016-11-15] MEDS ORDERED: Vancomycin 1gm/D5W 275ml IVPB ONE ×2 (22:00)
--- NOTE | 2016-11-15 23:43 | Wound Care Consultation ---
Wound Assessment Wound Assessment #1: Wound Number: #1 Wound Present on Admission: Yes New Wound: No Status Change of Wound: No Wound Location Body Site Modif: right Wound Location Body Site: heel Wound Type: pressure ulcer Alexandra Test: Does not Alexandra Pressure Ulcer Stage: IV/unstageable - black eschar adhered to wound bed Wound Length: 6.0 Wound Width: 8.0 Wound Depth: utd Percent of Wound Black/Brown: 100 Wound Drainage Amount: Scant Wound Drainage Odor: None/Absent Tissue Surrounding Wound: Indurated Wound General Appearance: Blackened Wound Assessment #2: Wound Number: #2 Wound Present on Admission: Yes New Wound: No Status Change of Wound: No Wound Location Body Site Modif: right, anterior Wound Location Body Site: toe - big Wound Type: pressure ulcer Alexandra Test: Does not Alexandra Pressure Ulcer Stage: IV/unstageable - with black eschar adhered to wound bed Wound Thickness: Full Thickness Wound Length: 2.0 Wound Width: 3.5 Wound Depth: utd Percent of Wound Black/Brown: 100 Wound Drainage Description: Serosanguineous Wound Drainage Amount: Scant Wound Drainage Odor: None/Absent Tissue Surrounding Wound: Indurated Wound General Appearance: Blackened Wound Assessment #3: Wound Number: #3 Wound Present on Admission: Yes New Wound: No Status Change of Wound: No Wound Location Body Site Modif: right, lateral Wound Location Body Site: metatarsal head - 5th Wound Type: pressure ulcer Alexandra Test: Does not Alexandra Pressure Ulcer Stage: IV/unstageable Wound Thickness: Full Thickness Wound Length: 2.5 Wound Width: 4.0 Wound Depth: utd Percent of Wound Black/Brown: 100 Wound Drainage Amount: None Wound Drainage Odor: None/Absent Tissue Surrounding Wound: Indurated Wound General Appearance: Blackened Wound Assessment #4: Wound Number: #4 Wound Present on Admission: Yes New Wound: No Status Change of Wound: No Wound Location Body Site Modif: right, mid, lateral Wound Location Body Site: foot Wound Type: pressure ulcer Alexandra Test: Does not Alexandra Pressure Ulcer Stage: IV/unstageable Wound Thickness: Full Thickness Wound Length: 3.0 Wound Width: 3.0 Wound Depth: utd Percent of Wound Bed Yellow/Wh: 50 Percent of Wound Black/Brown: 50 Wound Drainage Amount: None Wound Drainage Odor: None/Absent Tissue Surrounding Wound: Intact Wound General Appearance: Blackened Wound Assessment #5: Wound Number: #5 Wound Present on Admission: Yes New Wound: No Status Change of Wound: No Wound Location Body Site Modif: right, dorsal Wound Location Body Site: foot Wound Type: scab Alexandra Test: Does not Alexandra Wound Thickness: Full Thickness Wound Length: 2.0 Wound Width: 1.5 Wound Depth: utd Percent of Wound [place]/Red: 50 Percent of Wound Black/Brown: 50 Wound Drainage Amount: None Wound Drainage Odor: None/Absent Tissue Surrounding Wound: Intact Wound General Appearance: Asymptomatic Wound Assessment #6: Wound Number: #6 Wound Present on Admission: Yes New Wound: No Status Change of Wound: No Wound Location Body Site Modif: left, anterior Wound Location Body Site: knee Wound Type: scab Alexandra Test: Does not Alexandra Wound Thickness: Full Thickness Wound Length: 2.0 Wound Width: 3.0 Wound Depth: utd Percent of Wound Black/Brown: 100 Wound Drainage Amount: None Wound Drainage Odor: None/Absent Tissue Surrounding Wound: Intact Wound General Appearance: Asymptomatic Wound Assessment #7: Wound Number: #7 Wound Present on Admission: Yes New Wound: No Status Change of Wound: No Wound Location Body Site Modif: right, anterior Wound Location Body Site: knee Wound Type: scab Alexandra Test: Does not Alexandra Wound Thickness: Full Thickness Wound Length: 1.5 Wound Width: 2.0 Wound Depth: utd Percent of Wound Black/Brown: 100 Wound Drainage Amount: None Wound Drainage Odor: None/Absent Tissue Surrounding Wound: Intact Wound General Appearance: Asymptomatic Wound Assessment #8: Wound Number: #8 Wound Present on Admission: Yes New Wound: No Status Change of Wound: No Wound Location Body Site Modif: left Wound Location Body Site: heel Wound Type: pressure ulcer Alexandra Test: Does not Alexandra Pressure Ulcer Stage: IV/unstageable - resolved. dry scab Wound Thickness: Full Thickness Percent of Wound Bed Yellow/Wh: 100 - dry Wound Drainage Amount: None Wound Drainage Odor: None/Absent Tissue Surrounding Wound: Intact Wound General Appearance: Asymptomatic Wound Comment #1 Right lateral mid foot unstageable with brown dry scab adhered to wound bed #2 Right lateral 5th metatarsal head unstageable with brown dry scab adhered to wound bed #3 Right anterior big toe unstageable with black eschar adhered to wound bed #4 Right heel unstageable with black eschar adhered to wound bed #5 Right dorsal foot dry scab #6 Left anterior knee with dry scab #7 Right anterior knee with dry sacb #8 Left heel, lateral mid foot with resolved unstageable pressure ulcer Recommendation -Dental Internship consult -Optimize nutrition -Local wound care per protocol -Keep clean and dry -Turn and reposition -Offload both heels -Heel protector on both heels -Low air loss mattress -Assess and f/u accordingly for any changes SCOOBY UP RN Nov 15, 2016 23:43
[2016-11-16] VITALS (27 sets, daily range): BP systolic 110–138; BP diastolic 27–94
[2016-11-16] MEDS: metroNIDAZOLE 500mg tab ORAL SCH ×3 (00:20→22:07)
[2016-11-16] MEDS: Cefepime HCl 0.5 GM in D5W 55 ML IVPB SCH (01:06)
[2016-11-16] MEDS: Hydromorphone 0.5mg/0.5ml inj IVP PRN ×5 (02:18→20:09)
[2016-11-16] MEDS: oxyCODONE 5mg IR tab ORAL PRN ×4 (04:01→22:07)
[2016-11-16] MEDS: Renvela 800mg Pkt NG SCH ×3 (06:30→17:31)
[2016-11-16] MEDS: Sensipar 30mg Tab ORAL SCH (08:45)
--- NOTE | 2016-11-16 08:53 | Pulmonology Progress Note ---
Assessment/Plan Assessment/Plan 1. Sleep apnea. 2. Sepsis with shock. 3. Right foot osteomyelitis. 4. Chronic hepatitis. 5. OslerWeberRendu syndrome (hemorrhagic telangiectasia). 6. End-stage renal disease, on dialysis. 7. Diabetic autonomic neuropathy. 8. History of hypertension. 9. Human immunodeficiency virus. tolerated BiPAP x 2 hours; last night note echo with RA mass, possible thrombus or SBE was not seen on MIAN in June, he has hemorrhagic telangectasia and will bleed with anticoagulants Off dopamine cont BiPAP Subjective Interval Events: Off dopamine this Am; used BiPAP 2 hours last night Constitutional: Reports: no symptoms HEENT: Repors: no symptoms Respiratory: Reports: no symptoms Cardiovascular: Reports: no symptoms Gastrointestinal/Abdominal: Reports: no symptoms Allergies: Coded Allergies: HEPARIN (Verified Allergy, Severe, low platelets, 06/11/14) SULFA (SULFONAMIDE ANTIBIOTICS) (Verified Allergy, Severe, nephro toxic, ) ZOLPIDEM (Verified Allergy, Unknown, 05/03/16) MEROPENEM (Verified Adverse Reaction, Intermediate, 04/01/16) Nausea and vomiting Uncoded Allergies: pork products (Allergy, Severe, rashes, 06/11/14) Objective Last 24 Hour Vital Signs Date Time Temp Pulse Resp B/P Pulse Ox O2 Delivery O2 Flow Rate FiO2 11/16/16 08:45 72 132/36 11/16/16 07:30 98.2 72 20 118/39 100 Nasal Cannula 2.0 11/16/16 07:09 98.3 11/16/16 07:08 100 Nasal Cannula 2.0 28 11/16/16 07:08 Nasal Cannula 2.0 28 11/16/16 07:00 70 18 129/54 98 Nasal Cannula 2.0 11/16/16 06:30 72 18 127/42 98 Nasal Cannula 2.0 11/16/16 06:00 71 18 113/39 98 Nasal Cannula 2.0 11/16/16 05:30 64 18 118/37 98 Nasal Cannula 2.0 11/16/16 05:00 66 18 132/41 98 Nasal Cannula 2.0 11/16/16 04:30 66 18 122/42 98 Nasal Cannula 2.0 11/16/16 04:00 98.3 67 20 127/33 100 Nasal Cannula 2.0 11/16/16 04:00 2.0 11/16/16 04:00 71 11/16/16 03:46 63 22 100 11/16/16 03:30 68 18 120/39 98 Nasal Cannula 2.0 11/16/16 03:00 66 18 120/39 98 Nasal Cannula 2.0 11/16/16 02:30 67 18 112/47 98 Nasal Cannula 2.0 11/16/16 02:00 64 18 138/37 98 Nasal Cannula 2.0 11/16/16 01:30 62 18 132/45 98 Bi-pap 28 11/16/16 01:30 2.0 11/16/16 01:00 64 18 121/41 98 Bi-pap 28 11/16/16 00:43 61 20 100 Full Face 28 11/16/16 00:30 61 18 130/43 98 Bi-pap 28 11/16/16 00:00 98.1 61 20 129/44 100 Bi-pap 28 11/16/16 00:00 62 11/15/16 23:30 61 18 128/39 98 Bi-pap 28 11/15/16 23:15 60 16 100 Full Face 28 11/15/16 23:00 62 18 127/40 98 Bi-pap 28 11/15/16 23:00 28 11/15/16 22:30 65 18 128/43 98 Bi-pap 28 11/15/16 22:13 2.0 11/15/16 22:00 66 18 127/40 98 Bi-pap 28 11/15/16 21:30 66 18 132/42 98 Bi-pap 28 11/15/16 21:00 69 18 143/45 98 Nasal Cannula 2.0 11/15/16 20:30 70 18 141/48 98 Nasal Cannula 2.0 11/15/16 20:00 69 11/15/16 20:00 98.5 69 20 139/45 100 Nasal Cannula 2.0 11/15/16 19:30 69 18 139/38 98 Nasal Cannula 2.0 11/15/16 19:30 Nasal Cannula 2.0 11/15/16 19:00 70 18 135/36 98 Nasal Cannula 2.0 11/15/16 18:58 98 Nasal Cannula 2.0 28 11/15/16 18:58 Nasal Cannula 2.0 28 11/15/16 18:30 65 20 123/45 98 Nasal Cannula 2.0 11/15/16 18:00 69 20 124/38 100 Nasal Cannula 2.0 11/15/16 17:30 70 18 131/42 100 Nasal Cannula 2.0 11/15/16 17:00 69 18 130/38 100 Nasal Cannula 2.0 11/15/16 16:30 62 20 140/50 100 Nasal Cannula 2.0 11/15/16 16:00 98.2 63 22 126/38 100 Nasal Cannula 2.0 11/15/16 16:00 62 11/15/16 15:55 Room Air 11/15/16 15:30 63 20 126/41 100 Nasal Cannula 2.0 11/15/16 15:00 62 18 115/39 98 Nasal Cannula 2.0 11/15/16 15:00 115/39 11/15/16 14:30 62 18 113/38 98 Nasal Cannula 2.0 11/15/16 14:00 61 18 122/39 98 Nasal Cannula 2.0 11/15/16 14:00 122/39 11/15/16 13:30 65 18 122/41 98 Nasal Cannula 2.0 11/15/16 13:10 117/38 11/15/16 13:00 60 22 117/38 100 Nasal Cannula 2.0 11/15/16 12:30 60 22 120/39 100 Nasal Cannula 2.0 11/15/16 12:00 59 11/15/16 12:00 98.5 59 20 115/22 98 Nasal Cannula 2.0 11/15/16 11:33 111/39 11/15/16 11:30 60 20 99/17 98 Nasal Cannula 2.0 11/15/16 11:00 59 18 111/39 100 Nasal Cannula 2.0 11/15/16 10:30 60 18 98/48 100 Nasal Cannula 2.0 11/15/16 10:00 63 20 123/29 100 Nasal Cannula 2.0 11/15/16 09:30 69 19 126/39 100 Nasal Cannula 2.0 11/15/16 09:00 61 19 124/39 100 Nasal Cannula 2.0 Intake and Output 11/15/16 11/16/16 19:00 07:00 Intake Total 837.102 ml 551.051 ml Output Total 1500 ml Balance 837.102 ml -948.949 ml Intake Oral 600 ml 150 ml IV Total 237.102 ml 401.051 ml Hemodialysis UF 1500 ml General Appearance: no acute distress HEENT: normocephalic Respiratory/Chest: chest wall non-tender, lungs clear Cardiovascular: normal peripheral pulses, normal rate Abdomen: normal bowel sounds, soft, non tender Laboratory Tests 11/15/16 20:00: Random Vancomycin Level 12.0 Current Medications Medications (Trade) Dose Ordered Sig/Zohaib Route PRN Reason Start Time Stop Time Status Last Admin Dose Admin Amlodipine Besylate (Norvasc) 5 mg DAILY ORAL 11/14/16 11:00 12/14/16 10:59 11/16/16 08:45 Cefepime HCl/ Dextrose (Maxipime/D5W) 55 ml @ 110 mls/hr Q24H IVPB 11/14/16 01:00 11/21/16 00:59 11/16/16 01:06 Chlorhexidine Gluconate 1 applic 1 applic DAILY TOPIC 11/15/16 21:00 12/15/16 20:59 11/15/16 20:51 Cinacalcet (Sensipar) 30 mg DAILY ORAL 11/14/16 09:00 12/14/16 08:59 11/16/16 08:45 Clopidogrel Bisulfate (Plavix) 75 mg DAILY ORAL 11/14/16 09:00 12/14/16 08:59 11/16/16 08:45 Dopamine HCl/ Dextrose 250 ml @ 0 mls/hr Q24H IV 11/15/16 13:15 12/15/16 13:14 11/15/16 13:10 Emtricitabine (Emtriva) 200 mg POSTHD@WED,SAT ORAL 11/14/16 22:00 12/14/16 21:59 11/14/16 22:02 Fluconazole/ Sodium Chloride (Diflucan 200mg/ 100ml Premix) 100 ml @ 100 mls/hr Q24H IV 11/15/16 15:00 11/22/16 14:59 11/15/16 15:40 Hydromorphone HCl (Dilaudid) 0.5 mg Q4H PRN IVP Severe Pain (Pain Scale 7-10) 11/14/16 09:45 11/20/16 09:44 11/16/16 06:39 Metronidazole (Flagyl) 500 mg Q8H ORAL 11/14/16 00:00 11/21/16 00:00 11/16/16 08:45 Nateglinide (Starlix) 120 mg TIAC ORAL 11/14/16 06:30 12/14/16 06:29 11/15/16 15:41 Oxycodone HCl (Roxicodone) 5 mg Q4H PRN ORAL For Pain 4-6 11/13/16 22:30 11/20/16 22:29 11/16/16 08:46 Patient Own Medication (Patient's Own Med) 1 ea QWEEK ORAL 11/17/16 18:00 12/17/16 17:59 UNV Patient Own Medication (Patient's Own Med) 2 ea BID ORAL 11/16/16 09:00 12/14/16 08:59 11/16/16 08:46 Sevelamer Carbonate (Renvela) 3,200 mg TIAC NG 11/13/16 21:30 12/13/16 21:29 11/15/16 15:41 Temazepam (Restoril) 15 mg BEDTIME ORAL 11/14/16 22:00 11/21/16 21:59 11/15/16 20:51 Vancomycin HCl (Vanco rx to dose) 1 ea DAILY PRN MISC Per rx protocol 11/14/16 09:00 12/14/16 08:59 Alex Valencia MD Nov 16, 2016 08:53
[2016-11-16] MEDS ORDERED: LORazepam 0.5mg tab ORAL PRN ×2 (09:00→21:00)
[2016-11-16] MEDS ORDERED: VIRACEPT ORAL SCH (09:00)
[2016-11-16 10:39] LABS: BASOPHILS % (AUTO) 1.2 % (0.0-2.0); EOSINOPHILS % (AUTO) 9.5 % (0.0-3.0); LYMPHOCYTES % (AUTO) 53.4 % (20.0-45.0); MEAN CORPUSCULAR HEMOGLOBIN 26.4 PG (27.0-31.0); MEAN CORPUSCULAR HGB CONC 29.9 G/DL (32.0-36.0); MEAN CORPUSCULAR VOLUME 88 FL (80-99); MEAN PLATELET VOLUME 7.7 FL (6.5-10.1); MONOCYTES % (AUTO) 15.9 % (1.0-10.0); PLATELET COUNT 227 K/UL (150-450); RED BLOOD COUNT 4.41 M/UL (4.70-6.10); RED CELL DISTRIBUTION WIDTH 21.3 % (11.6-14.8); WHITE BLOOD COUNT 4.1 K/UL (4.8-10.8)
[2016-11-16 11:06] LABS: CALCIUM 7.9 mg/dL (8.6-10.2); CREATININE 7.6 mg/dL (0.7-1.2); GLOMERULAR FILTRATION RATE 8.8 mL/min (>60); POTASSIUM 4.8 mEQ/L (3.4-4.9)
--- NOTE | 2016-11-16 12:05 | Internal Med Progress Note ---
Subjective Physician Name Papa Lunsford Attending Physician Didier Thornton Current Medications Medications (Trade) Dose Ordered Sig/Zohaib Route PRN Reason Start Time Stop Time Status Last Admin Dose Admin Amlodipine Besylate (Norvasc) 5 mg DAILY ORAL 11/14/16 11:00 12/14/16 10:59 11/16/16 08:45 Cefepime HCl/ Dextrose (Maxipime/D5W) 55 ml @ 110 mls/hr Q24H IVPB 11/14/16 01:00 11/21/16 00:59 11/16/16 01:06 Chlorhexidine Gluconate 1 applic 1 applic DAILY TOPIC 11/15/16 21:00 12/15/16 20:59 11/15/16 20:51 Cinacalcet (Sensipar) 30 mg DAILY ORAL 11/14/16 09:00 12/14/16 08:59 11/16/16 08:45 Clopidogrel Bisulfate (Plavix) 75 mg DAILY ORAL 11/14/16 09:00 12/14/16 08:59 11/16/16 08:45 Dopamine HCl/ Dextrose 250 ml @ 0 mls/hr Q24H IV 11/15/16 13:15 12/15/16 13:14 11/15/16 13:10 Emtricitabine (Emtriva) 200 mg POSTHD@WED,SAT ORAL 11/14/16 22:00 12/14/16 21:59 11/14/16 22:02 Fluconazole/ Sodium Chloride (Diflucan 200mg/ 100ml Premix) 100 ml @ 100 mls/hr Q24H IV 11/15/16 15:00 11/22/16 14:59 11/15/16 15:40 Hydromorphone HCl (Dilaudid) 0.5 mg Q4H PRN IVP Severe Pain (Pain Scale 7-10) 11/14/16 09:45 11/20/16 09:44 11/16/16 10:43 Lorazepam (Ativan) 0.5 mg QHS PRN ORAL Insomnia 11/16/16 09:00 11/23/16 08:59 Metronidazole (Flagyl) 500 mg Q8H ORAL 11/14/16 00:00 11/21/16 00:00 11/16/16 08:45 Nateglinide (Starlix) 120 mg TIAC ORAL 11/14/16 06:30 12/14/16 06:29 11/16/16 11:29 Oxycodone HCl (Roxicodone) 5 mg Q4H PRN ORAL For Pain 4-6 11/13/16 22:30 11/20/16 22:29 11/16/16 08:46 Patient Own Medication (Patient's Own Med) 1 ea Sa@1800 ORAL 11/17/16 18:00 12/17/16 17:59 UNV Patient Own Medication (Patient's Own Med) 2 ea BID ORAL 11/16/16 09:00 12/14/16 08:59 11/16/16 08:46 Sevelamer Carbonate (Renvela) 3,200 mg TIAC NG 11/13/16 21:30 12/13/16 21:29 11/16/16 11:29 Temazepam (Restoril) 15 mg BEDTIME ORAL 11/14/16 22:00 11/21/16 21:59 11/15/16 20:51 Vancomycin HCl (Vanco rx to dose) 1 ea DAILY PRN MISC Per rx protocol 11/14/16 09:00 12/14/16 08:59 Allergies: Coded Allergies: HEPARIN (Verified Allergy, Severe, low platelets, 06/11/14) SULFA (SULFONAMIDE ANTIBIOTICS) (Verified Allergy, Severe, nephro toxic, ) ZOLPIDEM (Verified Allergy, Unknown, 05/03/16) MEROPENEM (Verified Adverse Reaction, Intermediate, 04/01/16) Nausea and vomiting Uncoded Allergies: pork products (Allergy, Severe, rashes, 06/11/14) Subjective in ICU, awake, alert, responsive, No CP, No SOB, feeling good Objective Last Vital Signs Date Time Temp Pulse Resp B/P Pulse Ox O2 Delivery O2 Flow Rate FiO2 11/16/16 11:10 98.2 11/16/16 11:00 72 20 110/27 100 Nasal Cannula 2.0 11/16/16 07:08 28 Laboratory Tests Test 11/15/16 20:00 11/16/16 09:15 Random Vancomycin Level 12.0 ug/mL White Blood Count 4.1 K/UL (4.8-10.8) L Red Blood Count 4.41 M/UL (4.70-6.10) L Hemoglobin 11.7 G/DL (14.2-18.0) L Hematocrit 38.9 % (42.0-52.0) L Mean Corpuscular Volume 88 FL (80-99) Mean Corpuscular Hemoglobin 26.4 PG (27.0-31.0) L Mean Corpuscular Hemoglobin Concent 29.9 G/DL (32.0-36.0) L Red Cell Distribution Width 21.3 % (11.6-14.8) H Platelet Count 227 K/UL (150-450) Mean Platelet Volume 7.7 FL (6.5-10.1) Neutrophils (%) (Auto) 20.0 % (45.0-75.0) L Lymphocytes (%) (Auto) 53.4 % (20.0-45.0) H Monocytes (%) (Auto) 15.9 % (1.0-10.0) H Eosinophils (%) (Auto) 9.5 % (0.0-3.0) H Basophils (%) (Auto) 1.2 % (0.0-2.0) Sodium Level 133 mEQ/L (135-145) L Potassium Level 4.8 mEQ/L (3.4-4.9) Chloride Level 95 mEQ/L (98-107) L Carbon Dioxide Level 21 mEQ/L (20-30) Anion Gap 17 (5-15) H Blood Urea Nitrogen 56 mg/dL (7-23) H Creatinine 7.6 mg/dL (0.7-1.2) H Estimat Glomerular Filtration Rate 8.8 mL/min (>60) Glucose Level 121 mg/dL (74-106) H Calcium Level 7.9 mg/dL (8.6-10.2) L Intake and Output 11/15/16 11/16/16 19:00 07:00 Intake Total 837.102 ml 551.051 ml Output Total 1500 ml Balance 837.102 ml -948.949 ml Intake Oral 600 ml 150 ml IV Total 237.102 ml 401.051 ml Hemodialysis UF 1500 ml Objective General: No acute distress, awake and alert, in ICU HEENT: NCAT, sclera anicteric, PERRL, EOMI. Neck: Supple, no significant jugular venous distention, Lungs: Good inspiratory effort, clear to auscultation bilaterally, no Wheeze or Rales. Chest Wall: Left side PermCath. Heart: Regular rate and rhythm, normal S1/S2, no murmur Abdomen: soft, nontender, nondistended. Normoactive bowel sounds. / Rectal: Refused and deferred. Extremities: No Cyanosis , clubbing or edema. Right Foot dressing intact, Left foot TMA. Right UE Midline cath. Left UE AVF nonfunctional, Neuro: A&O x 3, Able to move all extremities Skin: warm, no rashes, Psych: Normal mood and affect Assessment/Plan Assessment/Plan 1. Obstructive Sleep apnea. 2. Sepsis with shock improving. 3. Right foot osteomyelitis. 4. Chronic hepatitis. 5. OslerWeberRendu syndrome (hemorrhagic telangiectasia). 6. End-stage renal disease, on Hemodialysis. 7. Diabetic autonomic neuropathy. 8. History of hypertension. 9. Human immunodeficiency virus. 10. severe pulmonary hypertension 11. Right atrium mass R/O tumor, thrombus or possible vegetation. PLAN: off pressor Abx: Vanco / Cefepime/ Flagyl Monitor Labs and Cultures Dialysis F/U with Cardiology Recommendations MRI of Right foot. Transfer out of ICU to Monitor Unit. 2D Echo: Mild left atrial enlargement by 2-D. Normal left ventricular systolic function and wall motion. Left ventricular ejection fraction estimated to be 55 %. Moderate left ventricular hypertrophy. No evidence of pericardial fat or effusion. Severe left atrial enlargement. Mild right atrial enlargement. Mild right ventricular enlargement. Moderate aortic valve sclerosis and or thickening with adequate cusp excursion. Cannot r/o vegetation. Mildly thickened mitral valve leaflets with normal excursion. Heavy mitral annulus and aortic root calcification. Normal pulmonic valve structure. Normal tricuspid valve structure. IVC dilated at 2.6 cm without physiologic collapse, estimated RAP is 15 mmHg. Large round echodense mass l noted in right atrium. Cannot exclude for tumor, thrombus or possible vegetation. A color flow and spectral Doppler study was performed and revealed: Severe aortic regurgitation. Moderate to severe mitral regurgitation. Mitral diastolic velocities suggest reduced left ventricular relaxation (Grade I ). Mild tricuspid regurgitation. Tricuspid systolic velocities suggests peak right ventricular systolic pressure of 63 mmHg, consistent with severe pulmonary hypertension. Trace pulmonic regurgitation present. Papa Lunsford MD Nov 16, 2016 12:05
[2016-11-16] MEDS: DOPamine 400mg/250ml 250 ML IV SCH (13:15)
--- NOTE | 2016-11-16 13:53 | Diagnostic Imaging Report ---
Indication: Right heel ulcer, nonhealing. Technique: Right ankle/hind foot imaging utilizing multiplanar T1 fast spin-echo, proton and T2 fast spin-echo with fat saturation, and STIR. Comparison: None Findings: There is loss of subcutaneous fat and prominent ulceration at the posterior plantar aspect of the hindfoot. The adjacent posterior inferior part of the calcaneus is actively abnormal in signal characterized by low T1/high T2 signal. There is loss of thin rim of low signal intensity cortex as well. Findings consistent with acute osteomyelitis. There is no definite abscess identified. Achilles tendon is unremarkable. Plantar aponeurosis is unremarkable. Impression: Acute osteomyelitis involving the posterior plantar aspect of the calcaneus adjacent to a large ulcer.
--- NOTE | 2016-11-16 14:50 | Diagnostic Imaging Report ---
Indication: Pain Technique: Right forefoot imaging utilizing multiplanar T1 fast spin-echo, proton and T2 fast spin-echo with fat saturation, and STIR. Comparison: None Findings: There is a very small focus of low T1/high T2 signal involving the dorsal aspect of the head of the first proximal phalange (for example image 15 of series 3 and 4). There is also very mild focus of T2 hyperintense signal involving the head of the fourth proximal phalange. By the MR imaging examination, there is no significant adjacent cellulitis or obvious ulcer. Ulcers are much more apparent clinically, so correlation with the clinical assessment is needed. Given the location of the altered signal, which is mainly along the dorsal surface at both sites, the findings could be due to reactive bone marrow edema adjacent cellulitis or biomechanical issues, rather than osteomyelitis. If on the other hand there is clinical evidence of adjacent active infection with the presence of an ulcer, specificity for osteomyelitis is much higher. There is no evidence of an abscess. The phalanges of the second ray have been resected. Impression: Nonspecific, very small foci of abnormal signal at the dorsal heads of the first and fourth proximal phalanges. If there is evidence of active infection with ulcers in these 2 locations, osteomyelitis should be considered. Please correlate clinically.
--- NOTE | 2016-11-16 15:20 | Cardiac Electrophysiology PN ---
Assessment/Plan Assessment/Plan 1. Bradycardia with sinus arrest and junctional rhythm, heart rate in the 40s as well as left anterior fascicular block. Ruled out myocardial infarction . Tapered off dopamine. It may be related to the patient's Toprol at home. 2. Hypertension, on Norvasc 10 mg daily. 3. End-stage renal disease, on hemodialysis. 4. History of peripheral vascular disease, status post metatarsal amputation, on antibiotic with right foot ulcer. 5. Human immunodeficiency virus. 6. Hepatitis C. 7. Larger right atrial echogenic material/mass. refused MIAN until she meets and talks to Dr Villegas. 8. 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 10. Viability study 10/31/16 showed 10% nonviable myocardium. 11. MIAN 07/03/16 at [facility] severe MR and AI but reported Right atrium was normal. NOE RN, patients and Dr Villegas Subjective Subjective In ICU now off Dopamine. HR now in 60s. No chest pain or SOB. Objective Last 24 Hour Vital Signs Date Time Temp Pulse Resp B/P Pulse Ox O2 Delivery O2 Flow Rate FiO2 11/16/16 14:00 73 18 119/94 98 Nasal Cannula 2.0 11/16/16 13:00 68 18 124/48 100 Nasal Cannula 2.0 11/16/16 12:00 68 11/16/16 12:00 2.0 11/16/16 11:10 98.2 11/16/16 11:00 72 20 110/27 100 Nasal Cannula 2.0 11/16/16 10:00 69 20 121/58 100 Nasal Cannula 2.0 11/16/16 09:30 72 18 129/43 100 Nasal Cannula 2.0 11/16/16 09:00 2.0 11/16/16 09:00 70 18 130/49 99 Nasal Cannula 2.0 11/16/16 08:45 72 132/36 11/16/16 08:30 73 18 132/56 99 Nasal Cannula 2.0 11/16/16 08:00 70 11/16/16 08:00 70 18 134/29 98 Nasal Cannula 2.0 11/16/16 07:30 98.2 72 20 118/39 100 Nasal Cannula 2.0 11/16/16 07:08 100 Nasal Cannula 2.0 28 11/16/16 07:08 Nasal Cannula 2.0 28 11/16/16 07:00 70 18 129/54 98 Nasal Cannula 2.0 11/16/16 06:30 72 18 127/42 98 Nasal Cannula 2.0 11/16/16 06:00 71 18 113/39 98 Nasal Cannula 2.0 11/16/16 05:30 64 18 118/37 98 Nasal Cannula 2.0 11/16/16 05:00 66 18 132/41 98 Nasal Cannula 2.0 11/16/16 04:30 66 18 122/42 98 Nasal Cannula 2.0 11/16/16 04:00 98.3 67 20 127/33 100 Nasal Cannula 2.0 11/16/16 04:00 2.0 11/16/16 04:00 71 11/16/16 03:46 63 22 100 11/16/16 03:30 68 18 120/39 98 Nasal Cannula 2.0 11/16/16 03:00 66 18 120/39 98 Nasal Cannula 2.0 11/16/16 02:30 67 18 112/47 98 Nasal Cannula 2.0 11/16/16 02:00 64 18 138/37 98 Nasal Cannula 2.0 11/16/16 01:30 62 18 132/45 98 Bi-pap 28 11/16/16 01:30 2.0 11/16/16 01:00 64 18 121/41 98 Bi-pap 28 11/16/16 00:43 61 20 100 Full Face 28 11/16/16 00:30 61 18 130/43 98 Bi-pap 28 11/16/16 00:00 98.1 61 20 129/44 100 Bi-pap 28 11/16/16 00:00 62 11/15/16 23:30 61 18 128/39 98 Bi-pap 28 11/15/16 23:15 60 16 100 Full Face 28 11/15/16 23:00 62 18 127/40 98 Bi-pap 28 11/15/16 23:00 28 11/15/16 22:30 65 18 128/43 98 Bi-pap 28 11/15/16 22:13 2.0 11/15/16 22:00 66 18 127/40 98 Bi-pap 28 11/15/16 21:30 66 18 132/42 98 Bi-pap 28 11/15/16 21:00 69 18 143/45 98 Nasal Cannula 2.0 11/15/16 20:30 70 18 141/48 98 Nasal Cannula 2.0 11/15/16 20:00 69 11/15/16 20:00 98.5 69 20 139/45 100 Nasal Cannula 2.0 11/15/16 19:30 69 18 139/38 98 Nasal Cannula 2.0 11/15/16 19:30 Nasal Cannula 2.0 11/15/16 19:00 70 18 135/36 98 Nasal Cannula 2.0 11/15/16 18:58 98 Nasal Cannula 2.0 28 11/15/16 18:58 Nasal Cannula 2.0 28 11/15/16 18:30 65 20 123/45 98 Nasal Cannula 2.0 11/15/16 18:00 69 20 124/38 100 Nasal Cannula 2.0 11/15/16 17:30 70 18 131/42 100 Nasal Cannula 2.0 11/15/16 17:00 69 18 130/38 100 Nasal Cannula 2.0 11/15/16 16:30 62 20 140/50 100 Nasal Cannula 2.0 11/15/16 16:00 98.2 63 22 126/38 100 Nasal Cannula 2.0 11/15/16 16:00 62 11/15/16 15:55 Room Air 11/15/16 15:30 63 20 126/41 100 Nasal Cannula 2.0 Intake and Output 11/15/16 11/16/16 19:00 07:00 Intake Total 837.102 ml 551.051 ml Output Total 1500 ml Balance 837.102 ml -948.949 ml Intake Oral 600 ml 150 ml IV Total 237.102 ml 401.051 ml Hemodialysis UF 1500 ml Laboratory Tests Test 11/15/16 20:00 11/16/16 09:15 Random Vancomycin Level 12.0 ug/mL White Blood Count 4.1 K/UL (4.8-10.8) L Red Blood Count 4.41 M/UL (4.70-6.10) L Hemoglobin 11.7 G/DL (14.2-18.0) L Hematocrit 38.9 % (42.0-52.0) L Mean Corpuscular Volume 88 FL (80-99) Mean Corpuscular Hemoglobin 26.4 PG (27.0-31.0) L Mean Corpuscular Hemoglobin Concent 29.9 G/DL (32.0-36.0) L Red Cell Distribution Width 21.3 % (11.6-14.8) H Platelet Count 227 K/UL (150-450) Mean Platelet Volume 7.7 FL (6.5-10.1) Neutrophils (%) (Auto) 20.0 % (45.0-75.0) L Lymphocytes (%) (Auto) 53.4 % (20.0-45.0) H Monocytes (%) (Auto) 15.9 % (1.0-10.0) H Eosinophils (%) (Auto) 9.5 % (0.0-3.0) H Basophils (%) (Auto) 1.2 % (0.0-2.0) Sodium Level 133 mEQ/L (135-145) L Potassium Level 4.8 mEQ/L (3.4-4.9) Chloride Level 95 mEQ/L (98-107) L Carbon Dioxide Level 21 mEQ/L (20-30) Anion Gap 17 (5-15) H Blood Urea Nitrogen 56 mg/dL (7-23) H Creatinine 7.6 mg/dL (0.7-1.2) H Estimat Glomerular Filtration Rate 8.8 mL/min (>60) Glucose Level 121 mg/dL (74-106) H Calcium Level 7.9 mg/dL (8.6-10.2) L Objective HEAD AND NECK: Shows no JVD. LUNGS: Decreased breath sounds. CARDIOVASCULAR: Shows regular S1 and S2. Shows bradycardic. ABDOMEN: Soft. EXTREMITIES: No pitting edema was there in the right foot ulcer as well as left metatarsal amputation. CLIFTON KEARNEY Nov 16, 2016 15:20
--- NOTE | 2016-11-16 15:55 | Nephrology Progress Note ---
Assessment/Plan Problem List: (1) Osteomyelitis (2) ESRD (end stage renal disease) (3) HTN (hypertension) (4) Hepatitis C (5) Hypoglycemia (6) Vascular disease (7) Valvular cardiomyopathy (8) Xvhia-Eeljj-Bfzsn syndrome (9) Bradycardia Plan Dialysis 11/15 via cath, lines clotted and replaced and repeat HD 11/17. No fluid overload. His pain and infection could be monitored with amputations and earlier rehab--defer to pmd in icu after fbradycardia episode, on dopamine, bp nl, cardiology eval reviewed , has RA mass. With OWR high risk of hemorrhage if anticoagulated--d/w Dr. Tate Subjective Constitutional: Reports: weakness HEENT: Reports: no symptoms Genitourinary: Reports: no symptoms Neurologic/Psychiatric: Reports: no symptoms Subjective foot pain Objective Objective Last 24 Hour Vital Signs Date Time Temp Pulse Resp B/P Pulse Ox O2 Delivery O2 Flow Rate FiO2 11/16/16 15:30 98.2 11/16/16 15:00 71 21 120/56 98 Nasal Cannula 2.0 11/16/16 14:00 73 18 119/94 98 Nasal Cannula 2.0 11/16/16 13:00 68 18 124/48 100 Nasal Cannula 2.0 11/16/16 12:00 68 11/16/16 12:00 2.0 11/16/16 11:00 72 20 110/27 100 Nasal Cannula 2.0 11/16/16 10:00 69 20 121/58 100 Nasal Cannula 2.0 11/16/16 09:30 72 18 129/43 100 Nasal Cannula 2.0 11/16/16 09:00 2.0 11/16/16 09:00 70 18 130/49 99 Nasal Cannula 2.0 11/16/16 08:45 72 132/36 11/16/16 08:30 73 18 132/56 99 Nasal Cannula 2.0 11/16/16 08:00 70 11/16/16 08:00 70 18 134/29 98 Nasal Cannula 2.0 11/16/16 07:30 98.2 72 20 118/39 100 Nasal Cannula 2.0 11/16/16 07:08 100 Nasal Cannula 2.0 28 11/16/16 07:08 Nasal Cannula 2.0 28 11/16/16 07:00 70 18 129/54 98 Nasal Cannula 2.0 11/16/16 06:30 72 18 127/42 98 Nasal Cannula 2.0 11/16/16 06:00 71 18 113/39 98 Nasal Cannula 2.0 11/16/16 05:30 64 18 118/37 98 Nasal Cannula 2.0 11/16/16 05:00 66 18 132/41 98 Nasal Cannula 2.0 11/16/16 04:30 66 18 122/42 98 Nasal Cannula 2.0 11/16/16 04:00 98.3 67 20 127/33 100 Nasal Cannula 2.0 11/16/16 04:00 2.0 11/16/16 04:00 71 11/16/16 03:46 63 22 100 11/16/16 03:30 68 18 120/39 98 Nasal Cannula 2.0 11/16/16 03:00 66 18 120/39 98 Nasal Cannula 2.0 11/16/16 02:30 67 18 112/47 98 Nasal Cannula 2.0 11/16/16 02:00 64 18 138/37 98 Nasal Cannula 2.0 11/16/16 01:30 62 18 132/45 98 Bi-pap 28 11/16/16 01:30 2.0 11/16/16 01:00 64 18 121/41 98 Bi-pap 28 11/16/16 00:43 61 20 100 Full Face 28 11/16/16 00:30 61 18 130/43 98 Bi-pap 28 11/16/16 00:00 98.1 61 20 129/44 100 Bi-pap 28 11/16/16 00:00 62 11/15/16 23:30 61 18 128/39 98 Bi-pap 28 11/15/16 23:15 60 16 100 Full Face 28 11/15/16 23:00 62 18 127/40 98 Bi-pap 28 11/15/16 23:00 28 11/15/16 22:30 65 18 128/43 98 Bi-pap 28 11/15/16 22:13 2.0 11/15/16 22:00 66 18 127/40 98 Bi-pap 28 11/15/16 21:30 66 18 132/42 98 Bi-pap 28 11/15/16 21:00 69 18 143/45 98 Nasal Cannula 2.0 11/15/16 20:30 70 18 141/48 98 Nasal Cannula 2.0 11/15/16 20:00 69 11/15/16 20:00 98.5 69 20 139/45 100 Nasal Cannula 2.0 11/15/16 19:30 69 18 139/38 98 Nasal Cannula 2.0 11/15/16 19:30 Nasal Cannula 2.0 11/15/16 19:00 70 18 135/36 98 Nasal Cannula 2.0 11/15/16 18:58 98 Nasal Cannula 2.0 28 11/15/16 18:58 Nasal Cannula 2.0 28 11/15/16 18:30 65 20 123/45 98 Nasal Cannula 2.0 11/15/16 18:00 69 20 124/38 100 Nasal Cannula 2.0 11/15/16 17:30 70 18 131/42 100 Nasal Cannula 2.0 11/15/16 17:00 69 18 130/38 100 Nasal Cannula 2.0 11/15/16 16:30 62 20 140/50 100 Nasal Cannula 2.0 11/15/16 16:00 98.2 63 22 126/38 100 Nasal Cannula 2.0 11/15/16 16:00 62 11/15/16 15:55 Room Air Intake and Output 11/15/16 11/16/16 19:00 07:00 Intake Total 837.102 ml 551.051 ml Output Total 1500 ml Balance 837.102 ml -948.949 ml Intake Oral 600 ml 150 ml IV Total 237.102 ml 401.051 ml Hemodialysis UF 1500 ml Laboratory Tests 11/15/16 20:00: Random Vancomycin Level 12.0 11/16/16 09:15: White Blood Count 4.1L, Red Blood Count 4.41L, Hemoglobin 11.7L, Hematocrit 38.9L, Mean Corpuscular Volume 88, Mean Corpuscular Hemoglobin 26.4L, Mean Corpuscular Hemoglobin Concent 29.9L, Red Cell Distribution Width 21.3H, Platelet Count 227, Mean Platelet Volume 7.7, Neutrophils (%) (Auto) 20.0L, Lymphocytes (%) (Auto) 53.4H, Monocytes (%) (Auto) 15.9H, Eosinophils (%) (Auto ) 9.5H, Basophils (%) (Auto) 1.2, Sodium Level 133L, Potassium Level 4.8, Chloride Level 95L, Carbon Dioxide Level 21, Anion Gap 17H, Blood Urea Nitrogen 56H, Creatinine 7.6H, Estimat Glomerular Filtration Rate 8.8, Glucose Level 121H , Calcium Level 7.9L Height (Feet): 6 Height (Inches): 8.00 Weight (Pounds): 175 General Appearance: no apparent distress, alert EENT: normal ENT inspection Neck: normal alignment Cardiovascular: normal rate, regular rhythm Respiratory/Chest: lungs clear, normal breath sounds Abdomen: non tender, soft Extremities: other - no edema feet wrapped DURGA MORE Nov 16, 2016 15:55
[2016-11-16] MEDS: Renvela 2400 mg pkt GT SCH (17:31)
[2016-11-16] MEDS: VIRACEPT ORAL SCH (17:38)
[2016-11-16] MEDS ORDERED: Renvela 800mg Pkt NG SCH (18:00)
[2016-11-16] MEDS ORDERED: Renvela 2400 mg pkt GT SCH (18:00)
[2016-11-16] MEDS ORDERED: Dyna-Hex 2% Top Sol 8oz TOPIC SCH ×2 (21:00)
[2016-11-17] VITALS: BP 128/42
[2016-11-17] MEDS ORDERED: Cefepime HCl 0.5 GM in D5W 55 ML IVPB SCH (01:00)
[2016-11-17] MEDS: Hydromorphone 0.5mg/0.5ml inj IVP PRN ×5 (02:37→20:57)
[2016-11-17 04:00] VITALS: BP 126/48
[2016-11-17] MEDS: metroNIDAZOLE 500mg tab ORAL SCH ×3 (05:52→23:16)
[2016-11-17] MEDS: oxyCODONE 5mg IR tab ORAL PRN ×3 (05:53→21:43)
[2016-11-17 06:43] LABS: BASOPHILS % (AUTO) 1.4 % (0.0-2.0); EOSINOPHILS % (AUTO) 8.6 % (0.0-3.0); LYMPHOCYTES % (AUTO) 46.6 % (20.0-45.0); MEAN CORPUSCULAR HEMOGLOBIN 27.2 PG (27.0-31.0); MEAN CORPUSCULAR HGB CONC 31.3 G/DL (32.0-36.0); MEAN CORPUSCULAR VOLUME 87 FL (80-99); MEAN PLATELET VOLUME 8.3 FL (6.5-10.1); MONOCYTES % (AUTO) 16.9 % (1.0-10.0); NEUTROPHILS % (AUTO) 26.6 % (45.0-75.0); PLATELET COUNT 237 K/UL (150-450); RED BLOOD COUNT 4.13 M/UL (4.70-6.10); RED CELL DISTRIBUTION WIDTH 21.2 % (11.6-14.8); WHITE BLOOD COUNT 4.7 K/UL (4.8-10.8)
[2016-11-17 06:47] LABS: CALCIUM 8.1 mg/dL (8.6-10.2); CREATININE 9.3 mg/dL (0.7-1.2); POTASSIUM 5.6 mEQ/L (3.4-4.9)
--- NOTE | 2016-11-17 06:50 | Pulmonology Progress Note ---
Assessment/Plan Assessment/Plan 1. Sleep apnea. 2. Sepsis with shock. 3. Right foot osteomyelitis. 4. Chronic hepatitis. 5. OslerWeberRendu syndrome (hemorrhagic telangiectasia). 6. End-stage renal disease, on dialysis. 7. Diabetic autonomic neuropathy. 8. History of hypertension. 9. Human immunodeficiency virus. encourage bipap note echo with RA mass, possible thrombus or SBE was not seen on [facility] in June, he has hemorrhagic telangectasia and will bleed with anticoagulants HD per renal will need [facility] to be discussed iw Dr. Villegas. continue abs for now. Current Medications Medications (Trade) Dose Ordered Sig/Zohaib Route PRN Reason Start Time Stop Time Status Last Admin Dose Admin Amlodipine Besylate (Norvasc) 5 mg DAILY ORAL 11/18/16 09:00 12/18/16 08:59 11/18/16 08:30 Cefepime HCl/ Dextrose (Maxipime/D5W) 55 ml @ 110 mls/hr Q24H IVPB 11/18/16 01:00 11/25/16 00:59 11/18/16 00:07 Chlorhexidine Gluconate (Ebony-Hex 2%) 1 applic QHS TOPIC 11/17/16 21:00 12/17/16 20:59 11/17/16 20:56 Cinacalcet (Sensipar) 30 mg DAILY ORAL 11/18/16 09:00 12/18/16 08:59 11/18/16 08:30 Clopidogrel Bisulfate (Plavix) 75 mg DAILY ORAL 11/18/16 09:00 12/18/16 08:59 11/18/16 08:29 Emtricitabine (Emtriva) 200 mg WeSa@1800 ORAL 11/17/16 18:00 12/17/16 17:59 11/17/16 17:30 Fluconazole (Diflucan) 200 mg DAILY ORAL 11/18/16 09:00 11/25/16 08:59 11/18/16 08:30 Hydromorphone HCl (Dilaudid) 0.5 mg Q4H PRN IVP Severe Pain (Pain Scale 7-10) 11/17/16 15:00 11/24/16 14:59 11/18/16 17:18 Lorazepam (Ativan) 0.5 mg QHS PRN ORAL Insomnia 11/17/16 21:00 11/24/16 20:59 Metronidazole (Flagyl) 500 mg Q8HR ORAL 11/17/16 22:00 11/24/16 21:59 11/18/16 13:43 Nateglinide (Starlix) 120 mg TIAC ORAL 11/17/16 16:30 12/17/16 16:29 11/18/16 17:18 Oxycodone HCl (Roxicodone) 5 mg Q4H PRN ORAL For Pain 4-6 11/17/16 14:30 11/24/16 14:29 11/18/16 08:31 Patient Own Medication (Patient's Own Med) 2 ea BID ORAL 11/17/16 18:00 12/17/16 17:59 11/17/16 18:15 Sevelamer Carbonate (Renvela) 2,400 mg THREE TIMES A DAY GT 11/18/16 11:33 12/17/16 17:59 11/18/16 17:18 Sevelamer Carbonate 1600 mg 1,600 mg TID ORAL 11/18/16 13:00 12/18/16 12:59 11/18/16 17:18 Sodium Chloride (Sodium Chloride 1000ml bag) 1,000 ml @ 500 mls/hr Q2H PRN IVLG sbp<90 during hd 11/19/16 11:20 12/19/16 11:19 Temazepam (Restoril) 15 mg BEDTIME ORAL 11/17/16 21:00 11/24/16 20:59 11/17/16 20:56 Tenofovir Disoproxil Fumarate (Viread) 300 mg Sa@1800 ORAL 11/17/16 21:00 12/17/16 20:59 11/17/16 21:43 Vancomycin HCl (Vanco rx to dose) 1 ea DAILY PRN MISC Per rx protocol 11/17/16 15:00 12/17/16 14:59 Subjective Constitutional: Reports: no symptoms HEENT: Repors: no symptoms Respiratory: Reports: no symptoms Allergies: Coded Allergies: HEPARIN (Verified Allergy, Severe, low platelets, 06/11/14) SULFA (SULFONAMIDE ANTIBIOTICS) (Verified Allergy, Severe, nephro toxic, ) ZOLPIDEM (Verified Allergy, Unknown, 05/03/16) MEROPENEM (Verified Adverse Reaction, Intermediate, 04/01/16) Nausea and vomiting Uncoded Allergies: pork products (Allergy, Severe, rashes, 06/11/14) Subjective no events using bipap at night no cp nv or bleeding for HD in [facility] no fevere toelrating po Objective Last 24 Hour Vital Signs Date Time Temp Pulse Resp B/P Pulse Ox O2 Delivery O2 Flow Rate FiO2 11/17/16 04:00 2.0 11/17/16 04:00 62 11/17/16 04:00 97.9 75 20 126/48 Room Air 11/17/16 00:00 97.7 69 18 128/42 97 Nasal Cannula 2.0 11/17/16 00:00 2.0 11/17/16 00:00 65 11/16/16 20:00 2.0 11/16/16 20:00 98.8 69 18 121/37 100 Room Air 11/16/16 20:00 71 11/16/16 16:00 98.5 70 21 118/42 100 Nasal Cannula 2.0 11/16/16 16:00 71 11/16/16 16:00 2.0 11/16/16 16:00 97.7 64 20 123/33 97 Nasal Cannula 2.0 11/16/16 15:30 98.2 11/16/16 15:12 60 11/16/16 15:00 71 21 120/56 98 Nasal Cannula 2.0 11/16/16 14:00 73 18 119/94 98 Nasal Cannula 2.0 11/16/16 13:00 68 18 124/48 100 Nasal Cannula 2.0 11/16/16 12:00 68 11/16/16 12:00 2.0 11/16/16 11:00 72 20 110/27 100 Nasal Cannula 2.0 11/16/16 10:00 69 20 121/58 100 Nasal Cannula 2.0 11/16/16 09:30 72 18 129/43 100 Nasal Cannula 2.0 11/16/16 09:00 2.0 11/16/16 09:00 70 18 130/49 99 Nasal Cannula 2.0 11/16/16 08:45 72 132/36 11/16/16 08:30 73 18 132/56 99 Nasal Cannula 2.0 11/16/16 08:00 70 11/16/16 08:00 70 18 134/29 98 Nasal Cannula 2.0 11/16/16 07:30 98.2 72 20 118/39 100 Nasal Cannula 2.0 11/16/16 07:08 100 Nasal Cannula 2.0 28 11/16/16 07:08 Nasal Cannula 2.0 28 11/16/16 07:00 70 18 129/54 98 Nasal Cannula 2.0 Intake and Output 11/16/16 11/17/16 19:00 07:00 Intake Total 380 ml 490 ml Balance 380 ml 490 ml Intake Oral 280 ml 490 ml IV Total 100 ml # Bowel Movements 1 HEENT: normocephalic, anicteric Respiratory/Chest: lungs clear, normal breath sounds Cardiovascular: normal rate, regular rhythm Abdomen: normal bowel sounds, soft, non tender Extremities: no cyanosis Skin: no lesions Neurologic/Psychiatric: alert, oriented x 3 Lymphatic: no neck adenopathy Musculoskeletal: normal muscle bulk Laboratory Tests 11/16/16 09:15: White Blood Count 4.1L, Red Blood Count 4.41L, Hemoglobin 11.7L, Hematocrit 38.9L, Mean Corpuscular Volume 88, Mean Corpuscular Hemoglobin 26.4L, Mean Corpuscular Hemoglobin Concent 29.9L, Red Cell Distribution Width 21.3H, Platelet Count 227, Mean Platelet Volume 7.7, Neutrophils (%) (Auto) 20.0L, Lymphocytes (%) (Auto) 53.4H, Monocytes (%) (Auto) 15.9H, Eosinophils (%) (Auto ) 9.5H, Basophils (%) (Auto) 1.2, Sodium Level 133L, Potassium Level 4.8, Chloride Level 95L, Carbon Dioxide Level 21, Anion Gap 17H, Blood Urea Nitrogen 56H, Creatinine 7.6H, Estimat Glomerular Filtration Rate 8.8, Glucose Level 121H , Calcium Level 7.9L 11/17/16 05:55: White Blood Count 4.7L, Red Blood Count 4.13L, Hemoglobin 11.2L, Hematocrit 35.9L, Mean Corpuscular Volume 87, Mean Corpuscular Hemoglobin 27.2, Mean Corpuscular Hemoglobin Concent 31.3L, Red Cell Distribution Width 21.2H, Platelet Count 237, Mean Platelet Volume 8.3, Neutrophils (%) (Auto) 26.6L, Lymphocytes (%) (Auto) 46.6H, Monocytes (%) (Auto) 16.9H, Eosinophils (%) (Auto ) 8.6H, Basophils (%) (Auto) 1.4, Sodium Level [Pending], Potassium Level [ Pending], Chloride Level [Pending], Carbon Dioxide Level [Pending], Blood Urea Nitrogen [Pending], Creatinine [Pending], Estimat Glomerular Filtration Rate [ Pending], Glucose Level [Pending], Calcium Level [Pending] Current Medications Medications (Trade) Dose Ordered Sig/Zohaib Route PRN Reason Start Time Stop Time Status Last Admin Dose Admin Amlodipine Besylate (Norvasc) 5 mg DAILY ORAL 11/17/16 09:00 12/17/16 08:59 Cefepime HCl 0.5 gm/Dextrose 55 ml @ 110 mls/hr Q24H IVPB 11/17/16 01:00 11/24/16 00:59 11/17/16 00:58 Chlorhexidine Gluconate (Ebony-Hex 2%) 1 applic QHS TOPIC 11/16/16 21:00 12/16/16 20:59 11/16/16 21:06 Cinacalcet (Sensipar) 30 mg DAILY ORAL 11/17/16 09:00 12/17/16 08:59 Clopidogrel Bisulfate (Plavix) 75 mg DAILY ORAL 11/17/16 09:00 12/17/16 08:59 Emtricitabine (Emtriva) 200 mg WeSa@1800 ORAL 11/17/16 18:00 12/17/16 17:59 Fluconazole (Diflucan) 200 mg DAILY ORAL 11/17/16 09:00 11/24/16 08:59 Hydromorphone HCl (Dilaudid) 0.5 mg Q4H PRN IVP Severe Pain (Pain Scale 7-10) 11/16/16 17:45 11/23/16 17:44 11/17/16 06:42 Lorazepam (Ativan) 0.5 mg QHS PRN ORAL Insomnia 11/16/16 21:00 11/23/16 20:59 Metronidazole (Flagyl) 500 mg Q8HR ORAL 11/16/16 22:00 11/23/16 21:59 11/17/16 05:52 Nateglinide (Starlix) 120 mg TIAC ORAL 11/16/16 16:30 12/16/16 16:29 11/17/16 05:52 Oxycodone HCl (Roxicodone) 5 mg Q4H PRN ORAL For Pain 4-6 11/16/16 18:30 11/23/16 18:29 11/17/16 05:53 Patient Own Medication (Patient's Own Med) 1 ea Sa@1800 ORAL 11/17/16 18:00 12/17/16 17:59 UNV Patient Own Medication (Patient's Own Med) 2 ea BID ORAL 11/16/16 18:00 12/16/16 17:59 11/16/16 17:38 Sevelamer Carbonate (Renvela) 800 mg TID NG 11/16/16 18:00 12/16/16 17:59 11/16/16 17:31 Sevelamer Carbonate (Renvela) 2,400 mg THREE TIMES A DAY GT 11/16/16 18:00 12/16/16 17:59 11/16/16 17:31 Sodium Chloride (Sodium Chloride 1000ml bag) 1,000 ml @ 500 mls/hr Q2H PRN IVLG sbp<90 during hd 11/17/16 06:00 11/17/16 23:59 Temazepam (Restoril) 15 mg BEDTIME ORAL 11/16/16 21:00 11/23/16 20:59 11/16/16 21:06 Vancomycin HCl (Vanco rx to dose) 1 ea DAILY PRN MISC Per rx protocol 11/17/16 09:00 12/17/16 08:59 GLADYS ELDER DO Nov 17, 2016 06:50
[2016-11-17 08:00] VITALS: BP 148/50
[2016-11-17] MEDS ORDERED: Fluconazole 100mg tab ORAL SCH (09:00)
[2016-11-17] MEDS ORDERED: Sensipar 30mg Tab ORAL SCH (09:00)
[2016-11-17] MEDS: Renvela 2400 mg pkt GT SCH ×3 (09:20→17:29)
[2016-11-17] MEDS: VIRACEPT ORAL SCH ×2 (09:21→18:15)
[2016-11-17] MEDS: Renvela 800mg Pkt NG SCH ×3 (09:21→17:30)
[2016-11-17 12:00] VITALS: BP 139/46
--- NOTE | 2016-11-17 13:28 | Infectious Diseases Prog Note ---
Assessment/Plan Assessment/Plan ASSESSMENT AND PLAN: 1. bilateral R>L foot wounds, right foot and heel infected wounds and necrosis - wound culture with yeast, likely polymicrobial - MRI c/o osteo right ankle and possible right foot - wound culture with nicole, likely polymicrobial infection - podiatry f/u noted - continue vancomycin, cefepime, flagy and diflucan - failed outpatient zosyn - wound care per protocol 2. patient getting treated for right heel/foot osteo as outpatient with vancomycin and zosyn based on most recent wound culture in my office 3. End-stage renal disease, on hemodialysis. 4. Hypertension and diabetes, hep c + 5. Human immunodeficiency virus. Continue antiretroviral treatment at this time from home, cd4 ordered. Pt f/u with Dr. Chinchilla for HIV care. 6. Blood sugar and blood pressure control for diabetes and hypertension, per primary. 7. Anemia. 8. Hemodialysis per Renal. 9. Transient ischemic attack. 10. Congestive heart failure. 11. History of osteomyelitis of left foot. 12. Hepatis C. 13. History of seizure. 14. Weakness. 15. Past medical history noted. 16. Allergies to Heparin, meropenem, sulfa, and Zolpidem. 17. MAR was noted. 18. Case was discussed with RN. 19. Social history is negative. 20. Family history is noncontributory. 21. Case discussed with Dr. Thornton. 22. Continue treatment per primary consultants. 23. Wound care protocol. 24. Podiatry followup. 25. Continue Vascular Surgery evaluation. 26. Hypoglycemia treatment per primary. Subjective Constitutional: Denies: fever HEENT: Denies: congestion Respiratory: Denies: shortness of breath Cardiovascular: Denies: chest pain Gastrointestinal/Abdominal: Denies: diarrhea, nausea, vomiting Neurologic: Denies: headache Psychiatric: Denies: depression Skin: Denies: rash Hematologic: Denies: bleeding Musculoskeletal: Denies: pain Allergies: Coded Allergies: HEPARIN (Verified Allergy, Severe, low platelets, 06/11/14) SULFA (SULFONAMIDE ANTIBIOTICS) (Verified Allergy, Severe, nephro toxic, ) ZOLPIDEM (Verified Allergy, Unknown, 05/03/16) MEROPENEM (Verified Adverse Reaction, Intermediate, 04/01/16) Nausea and vomiting Uncoded Allergies: pork products (Allergy, Severe, rashes, 06/11/14) Objective Vital Signs Last 24 Hour Vital Signs Date Time Temp Pulse Resp B/P Pulse Ox O2 Delivery O2 Flow Rate FiO2 11/17/16 12:00 2.0 11/17/16 12:00 98.1 75 20 139/46 97 Room Air 11/17/16 09:20 77 148/50 11/17/16 08:00 2.0 11/17/16 08:00 98.4 77 21 148/50 100 Nasal Cannula 2.0 11/17/16 07:36 76 11/17/16 07:30 Nasal Cannula 2.0 28 11/17/16 07:30 98 Nasal Cannula 2.0 28 11/17/16 04:00 2.0 11/17/16 04:00 62 11/17/16 04:00 97.9 75 20 126/48 Room Air 11/17/16 00:00 97.7 69 18 128/42 97 Nasal Cannula 2.0 11/17/16 00:00 2.0 11/17/16 00:00 65 11/16/16 20:00 2.0 11/16/16 20:00 98.8 69 18 121/37 100 Room Air 11/16/16 20:00 71 11/16/16 16:00 98.5 70 21 118/42 100 Nasal Cannula 2.0 11/16/16 16:00 71 11/16/16 16:00 2.0 11/16/16 16:00 97.7 64 20 123/33 97 Nasal Cannula 2.0 11/16/16 15:30 98.2 11/16/16 15:12 60 11/16/16 15:00 71 21 120/56 98 Nasal Cannula 2.0 11/16/16 14:00 73 18 119/94 98 Nasal Cannula 2.0 Height (Feet): 6 Height (Inches): 8.00 Weight (Pounds): 176 General Appearance: no acute distress HEENT: normocephalic, atraumatic, anicteric, mucous membranes moist, PERRL, EOMI, pharynx normal, supple, no JVD Respiratory/Chest: lungs clear, normal breath sounds, no respiratory distress, no accessory muscle use Cardiovascular: normal rate, regular rhythm, no gallop/murmur, no JVD Abdomen: normal bowel sounds, soft, non tender, no organomegaly, non distended Genitourinary: other - no agarwal Extremities: no cyanosis Skin: no rash Neurologic/Psychiatric: space and missile defense operations II-XII grossly normal, alert, oriented x 3, responsive Lymphatic: no neck adenopathy Musculoskeletal: no effusion Objective bilateral foot x-rays - no osteo chest x-ray - atx MRI - pending Microbiology Date/Time Source Procedure Growth Status 11/11/16 16:05 Blood Blood Culture - Final NO GROWTH AFTER 5 DAYS Complete 11/10/16 19:50 Nasal Nares MRSA Culture - Final NO METHICILLIN RESISTANT STAPH AUREUS... Complete 11/13/16 02:00 Foot Right Gram Stain - Final Complete 11/13/16 02:00 Aerobic Culture - Final Nicole Parapsilosis Complete 11/13/16 02:00 Foot Right Anaerobic Culture - Final NO ANAEROBES ISOLATED Complete Laboratory Tests Test 11/17/16 05:55 White Blood Count 4.7 K/UL (4.8-10.8) L Red Blood Count 4.13 M/UL (4.70-6.10) L Hemoglobin 11.2 G/DL (14.2-18.0) L Hematocrit 35.9 % (42.0-52.0) L Mean Corpuscular Volume 87 FL (80-99) Mean Corpuscular Hemoglobin 27.2 PG (27.0-31.0) Mean Corpuscular Hemoglobin Concent 31.3 G/DL (32.0-36.0) L Red Cell Distribution Width 21.2 % (11.6-14.8) H Platelet Count 237 K/UL (150-450) Mean Platelet Volume 8.3 FL (6.5-10.1) Neutrophils (%) (Auto) 26.6 % (45.0-75.0) L Lymphocytes (%) (Auto) 46.6 % (20.0-45.0) H Monocytes (%) (Auto) 16.9 % (1.0-10.0) H Eosinophils (%) (Auto) 8.6 % (0.0-3.0) H Basophils (%) (Auto) 1.4 % (0.0-2.0) Sodium Level 134 mEQ/L (135-145) L Potassium Level 5.6 mEQ/L (3.4-4.9) H Chloride Level 94 mEQ/L (98-107) L Carbon Dioxide Level 20 mEQ/L (20-30) Anion Gap 20 (5-15) H Blood Urea Nitrogen 82 mg/dL (7-23) #H Creatinine 9.3 mg/dL (0.7-1.2) H Estimat Glomerular Filtration Rate 7.0 mL/min (>60) Glucose Level 115 mg/dL (74-106) H Calcium Level 8.1 mg/dL (8.6-10.2) L Current Medications Medications (Trade) Dose Ordered Sig/Zohaib Route PRN Reason Start Time Stop Time Status Last Admin Dose Admin Amlodipine Besylate (Norvasc) 5 mg DAILY ORAL 11/17/16 09:00 12/17/16 08:59 11/17/16 09:20 Cefepime HCl 0.5 gm/Dextrose 55 ml @ 110 mls/hr Q24H IVPB 11/17/16 01:00 11/24/16 00:59 11/17/16 00:58 Chlorhexidine Gluconate (Ebony-Hex 2%) 1 applic QHS TOPIC 11/16/16 21:00 12/16/16 20:59 11/16/16 21:06 Cinacalcet (Sensipar) 30 mg DAILY ORAL 11/17/16 09:00 12/17/16 08:59 11/17/16 09:15 Clopidogrel Bisulfate (Plavix) 75 mg DAILY ORAL 11/17/16 09:00 12/17/16 08:59 11/17/16 09:19 Emtricitabine (Emtriva) 200 mg WeSa@1800 ORAL 11/17/16 18:00 12/17/16 17:59 Fluconazole (Diflucan) 200 mg DAILY ORAL 11/17/16 09:00 11/24/16 08:59 11/17/16 09:16 Hydromorphone HCl (Dilaudid) 0.5 mg Q4H PRN IVP Severe Pain (Pain Scale 7-10) 11/16/16 17:45 11/23/16 17:44 11/17/16 11:09 Lorazepam (Ativan) 0.5 mg QHS PRN ORAL Insomnia 11/16/16 21:00 11/23/16 20:59 Metronidazole (Flagyl) 500 mg Q8HR ORAL 11/16/16 22:00 11/23/16 21:59 11/17/16 05:52 Nateglinide (Starlix) 120 mg TIAC ORAL 11/16/16 16:30 12/16/16 16:29 11/17/16 11:44 Oxycodone HCl (Roxicodone) 5 mg Q4H PRN ORAL For Pain 4-6 11/16/16 18:30 11/23/16 18:29 11/17/16 10:11 Patient Own Medication (Patient's Own Med) 1 ea Sa@1800 ORAL 11/17/16 18:00 12/17/16 17:59 UNV Patient Own Medication (Patient's Own Med) 2 ea BID ORAL 11/16/16 18:00 12/16/16 17:59 11/17/16 09:21 Sevelamer Carbonate (Renvela) 800 mg TID NG 11/16/16 18:00 12/16/16 17:59 11/17/16 12:26 Sevelamer Carbonate (Renvela) 2,400 mg THREE TIMES A DAY GT 11/16/16 18:00 12/16/16 17:59 11/17/16 12:25 Sodium Chloride (Sodium Chloride 1000ml bag) 1,000 ml @ 500 mls/hr Q2H PRN IVLG sbp<90 during hd 11/17/16 06:00 11/17/16 23:59 Temazepam (Restoril) 15 mg BEDTIME ORAL 11/16/16 21:00 11/23/16 20:59 11/16/16 21:06 Vancomycin HCl (Vanco rx to dose) 1 ea DAILY PRN MISC Per rx protocol 11/17/16 09:00 12/17/16 08:59 INOCENCIA DOS SANTOS Nov 17, 2016 13:28
--- NOTE | 2016-11-17 14:47 | Nephrology Progress Note ---
Assessment/Plan Problem List: (1) Osteomyelitis (2) ESRD (end stage renal disease) (3) HTN (hypertension) (4) Hepatitis C (5) Hypoglycemia (6) Vascular disease (7) Valvular cardiomyopathy (8) Ukcfn-Jmuwj-Khkul syndrome (9) Bradycardia Plan Dialysis 11/15 via cath, repeat HD 11/17. No fluid overload. His pain and infection could be monitored with amputations and earlier rehab--defer to pmd post after fbradycardia episode, bp nl, cardiology eval reviewed, has RA mass. With OWR high risk of hemorrhage if anticoagulated--d/w Dr. Tate Subjective Constitutional: Reports: weakness HEENT: Reports: no symptoms Genitourinary: Reports: no symptoms Neurologic/Psychiatric: Reports: no symptoms Subjective foot pain Objective Objective Last 24 Hour Vital Signs Date Time Temp Pulse Resp B/P Pulse Ox O2 Delivery O2 Flow Rate FiO2 11/17/16 12:00 76 11/17/16 12:00 2.0 11/17/16 12:00 98.1 75 20 139/46 97 Room Air 11/17/16 09:20 77 148/50 11/17/16 08:00 2.0 11/17/16 08:00 98.4 77 21 148/50 100 Nasal Cannula 2.0 11/17/16 07:36 76 11/17/16 07:30 Nasal Cannula 2.0 28 11/17/16 07:30 98 Nasal Cannula 2.0 28 11/17/16 04:00 2.0 11/17/16 04:00 62 11/17/16 04:00 97.9 75 20 126/48 Room Air 11/17/16 00:00 97.7 69 18 128/42 97 Nasal Cannula 2.0 11/17/16 00:00 2.0 11/17/16 00:00 65 11/16/16 20:00 2.0 11/16/16 20:00 98.8 69 18 121/37 100 Room Air 11/16/16 20:00 71 11/16/16 16:00 98.5 70 21 118/42 100 Nasal Cannula 2.0 11/16/16 16:00 71 11/16/16 16:00 2.0 11/16/16 16:00 97.7 64 20 123/33 97 Nasal Cannula 2.0 11/16/16 15:30 98.2 11/16/16 15:12 60 11/16/16 15:00 71 21 120/56 98 Nasal Cannula 2.0 Intake and Output 11/16/16 11/17/16 19:00 07:00 Intake Total 380 ml 490 ml Balance 380 ml 490 ml Intake Oral 280 ml 490 ml IV Total 100 ml # Bowel Movements 1 Laboratory Tests 11/17/16 05:55: White Blood Count 4.7L, Red Blood Count 4.13L, Hemoglobin 11.2L, Hematocrit 35.9L, Mean Corpuscular Volume 87, Mean Corpuscular Hemoglobin 27.2, Mean Corpuscular Hemoglobin Concent 31.3L, Red Cell Distribution Width 21.2H, Platelet Count 237, Mean Platelet Volume 8.3, Neutrophils (%) (Auto) 26.6L, Lymphocytes (%) (Auto) 46.6H, Monocytes (%) (Auto) 16.9H, Eosinophils (%) (Auto ) 8.6H, Basophils (%) (Auto) 1.4, Sodium Level 134L, Potassium Level 5.6H, Chloride Level 94L, Carbon Dioxide Level 20, Anion Gap 20H, Blood Urea Nitrogen 82#H, Creatinine 9.3H, Estimat Glomerular Filtration Rate 7.0, Glucose Level 115H, Calcium Level 8.1L Height (Feet): 6 Height (Inches): 8.00 Weight (Pounds): 176 General Appearance: no apparent distress EENT: normal ENT inspection Neck: normal alignment Cardiovascular: normal rate Respiratory/Chest: lungs clear Abdomen: non tender, no organomegaly Extremities: trace edema Neurologic: director utilization management II-XII grossly normal DURGA MORE Nov 17, 2016 14:47
[2016-11-17 16:04] VITALS: BP 134/53
[2016-11-17] MEDS ORDERED: NS 275ml ONE ×3 (16:57→17:28)
[2016-11-17] MEDS ORDERED: Tubing IV Secondary IV ONE ×2 (16:57→17:28)
[2016-11-17] MEDS: Emtricitabine 200mg tab ORAL SCH (17:30)
[2016-11-17] MEDS ORDERED: TENOFOVIR DISOPROXIL 300 MG ORAL SCH (18:00)
[2016-11-17] MEDS ORDERED: Emtricitabine 200mg tab ORAL SCH (18:00)
[2016-11-17 20:00] VITALS: BP 131/49
[2016-11-17] MEDS: Dyna-Hex 2% Top Sol 8oz TOPIC SCH (20:56)
[2016-11-17] MEDS ORDERED: LORazepam 0.5mg tab ORAL PRN (21:00)
--- NOTE | 2016-11-17 22:47 | General Progress Note ---
Progress Note Progress Note Patient seen and examined Vascular surgery consult dictated # [id number] BERTHA IBRAHIM Nov 17, 2016 22:47
[2016-11-18] VITALS: BP 126/42
[2016-11-18] MEDS: Cefepime HCl 0.5 GM in D5W 55 ML IVPB SCH (00:07)
[2016-11-18] MEDS: oxyCODONE 5mg IR tab ORAL PRN ×3 (03:29→23:07)
[2016-11-18 04:00] VITALS: BP 127/39
[2016-11-18] MEDS: metroNIDAZOLE 500mg tab ORAL SCH ×3 (06:18→21:27)
[2016-11-18 08:00] VITALS: BP 146/47
[2016-11-18] MEDS: Fluconazole 100mg tab ORAL SCH (08:30)
[2016-11-18] MEDS: Renvela 2400 mg pkt GT SCH ×3 (08:30→17:18)
[2016-11-18] MEDS: Sensipar 30mg Tab ORAL SCH (08:30)
[2016-11-18] MEDS: Renvela 800mg Pkt NG SCH (08:30)
[2016-11-18] MEDS: VIRACEPT ORAL SCH ×2 (08:31→17:21)
--- NOTE | 2016-11-18 11:20 | Nephrology Progress Note ---
Assessment/Plan Problem List: (1) Osteomyelitis (2) ESRD (end stage renal disease) (3) HTN (hypertension) (4) Hepatitis C (5) Hypoglycemia (6) Vascular disease (7) Valvular cardiomyopathy (8) Gonxa-Zkpff-Fvfra syndrome (9) Bradycardia Plan Dialysis 11/17 via cath, repeat HD 11/19. No fluid overload. His pain and infection could be monitored with amputations and earlier rehab--defer to pmd post after fbradycardia episode, bp nl, cardiology eval reviewed, has RA mass. With OWR high risk of hemorrhage if anticoagulated--d/w Dr. Tate Subjective Constitutional: Reports: weakness HEENT: Reports: no symptoms Genitourinary: Reports: no symptoms Neurologic/Psychiatric: Reports: no symptoms Subjective foot pain Objective Objective Last 24 Hour Vital Signs Date Time Temp Pulse Resp B/P Pulse Ox O2 Delivery O2 Flow Rate FiO2 11/18/16 08:30 72 146/47 11/18/16 08:00 97.7 72 19 146/47 100 Room Air 11/18/16 08:00 75 11/18/16 04:00 97.7 72 19 127/39 98 Room Air 11/18/16 04:00 69 11/18/16 00:00 97.9 72 16 126/42 97 Room Air 11/18/16 00:00 73 11/17/16 20:00 75 11/17/16 20:00 98.6 80 18 131/49 96 Room Air 11/17/16 19:30 Room Air 11/17/16 19:30 96 Room Air 11/17/16 17:00 Nasal Cannula 2.0 11/17/16 16:04 98.3 77 20 134/53 96 Room Air 11/17/16 16:00 2.0 11/17/16 15:24 72 11/17/16 12:00 76 11/17/16 12:00 2.0 11/17/16 12:00 98.1 75 20 139/46 97 Room Air Intake and Output 11/17/16 11/18/16 19:00 07:00 Intake Total 240 ml 430 ml Output Total 3000 ml Balance 240 ml -2570 ml Intake Oral 240 ml 320 ml IV Total 110 ml Hemodialysis UF 3000 ml Laboratory Tests 11/18/16 07:50: Random Vancomycin Level 22.3, Heparin-PF4 Antibody Screen [Pending] Height (Feet): 6 Height (Inches): 8.00 Weight (Pounds): 160 General Appearance: no apparent distress, alert EENT: normal ENT inspection Neck: normal alignment Cardiovascular: normal rate, regular rhythm Respiratory/Chest: lungs clear Abdomen: non tender Extremities: other - dressings on feet, muscle atrophy Neurologic: mammography technologist II-XII grossly normal DURGA MORE Nov 18, 2016 11:20
[2016-11-18 12:00] VITALS: BP 139/52
[2016-11-18] MEDS: Renvela 800mg Pkt ORAL SCH ×2 (12:15→17:18)
[2016-11-18] MEDS: Hydromorphone 0.5mg/0.5ml inj IVP PRN ×3 (12:16→21:27)
--- NOTE | 2016-11-18 12:48 | Internal Med Progress Note ---
Subjective Date of Service: Nov 17, 2016 Physician Name Papa Lunsford Attending Physician Didier Thornton Past Medical History Late Entry Note Current Medications Medications (Trade) Dose Ordered Sig/Zohaib Route PRN Reason Start Time Stop Time Status Last Admin Dose Admin Amlodipine Besylate (Norvasc) 5 mg DAILY ORAL 11/18/16 09:00 12/18/16 08:59 11/18/16 08:30 Cefepime HCl/ Dextrose (Maxipime/D5W) 55 ml @ 110 mls/hr Q24H IVPB 11/18/16 01:00 11/25/16 00:59 11/18/16 00:07 Chlorhexidine Gluconate (Ebony-Hex 2%) 1 applic QHS TOPIC 11/17/16 21:00 12/17/16 20:59 11/17/16 20:56 Cinacalcet (Sensipar) 30 mg DAILY ORAL 11/18/16 09:00 12/18/16 08:59 11/18/16 08:30 Clopidogrel Bisulfate (Plavix) 75 mg DAILY ORAL 11/18/16 09:00 12/18/16 08:59 11/18/16 08:29 Emtricitabine (Emtriva) 200 mg WeSa@1800 ORAL 11/17/16 18:00 12/17/16 17:59 11/17/16 17:30 Fluconazole (Diflucan) 200 mg DAILY ORAL 11/18/16 09:00 11/25/16 08:59 11/18/16 08:30 Hydromorphone HCl (Dilaudid) 0.5 mg Q4H PRN IVP Severe Pain (Pain Scale 7-10) 11/17/16 15:00 11/24/16 14:59 11/18/16 12:16 Lorazepam (Ativan) 0.5 mg QHS PRN ORAL Insomnia 11/17/16 21:00 11/24/16 20:59 Metronidazole (Flagyl) 500 mg Q8HR ORAL 11/17/16 22:00 11/24/16 21:59 11/18/16 06:18 Nateglinide (Starlix) 120 mg TIAC ORAL 11/17/16 16:30 12/17/16 16:29 11/18/16 11:40 Oxycodone HCl (Roxicodone) 5 mg Q4H PRN ORAL For Pain 4-6 11/17/16 14:30 11/24/16 14:29 11/18/16 08:31 Patient Own Medication (Patient's Own Med) 2 ea BID ORAL 11/17/16 18:00 12/17/16 17:59 11/17/16 18:15 Sevelamer Carbonate (Renvela) 2,400 mg THREE TIMES A DAY GT 11/18/16 11:33 12/17/16 17:59 11/18/16 12:15 Sevelamer Carbonate 1600 mg 1,600 mg TID ORAL 11/18/16 13:00 12/18/16 12:59 11/18/16 12:15 Sodium Chloride (Sodium Chloride 1000ml bag) 1,000 ml @ 500 mls/hr Q2H PRN IVLG sbp<90 during hd 11/19/16 11:20 12/19/16 11:19 Temazepam (Restoril) 15 mg BEDTIME ORAL 11/17/16 21:00 11/24/16 20:59 11/17/16 20:56 Tenofovir Disoproxil Fumarate (Viread) 300 mg Sa@1800 ORAL 11/17/16 21:00 12/17/16 20:59 11/17/16 21:43 Vancomycin HCl (Vanco rx to dose) 1 ea DAILY PRN MISC Per rx protocol 11/17/16 15:00 12/17/16 14:59 Allergies: Coded Allergies: HEPARIN (Verified Allergy, Severe, low platelets, 06/11/14) SULFA (SULFONAMIDE ANTIBIOTICS) (Verified Allergy, Severe, nephro toxic, ) ZOLPIDEM (Verified Allergy, Unknown, 05/03/16) MEROPENEM (Verified Adverse Reaction, Intermediate, 04/01/16) Nausea and vomiting Uncoded Allergies: pork products (Allergy, Severe, rashes, 06/11/14) Subjective in [place], awake, alert, responsive, No CP, No SOB, feeling okay Objective Last Vital Signs Date Time Temp Pulse Resp B/P Pulse Ox O2 Delivery O2 Flow Rate FiO2 11/18/16 12:00 97.9 81 19 139/52 100 Room Air 11/17/16 17:00 2.0 11/17/16 07:30 28 Laboratory Tests Test 11/18/16 07:50 Random Vancomycin Level 22.3 ug/mL Heparin-PF4 Antibody Screen Pending Intake and Output 11/17/16 11/18/16 19:00 07:00 Intake Total 240 ml 430 ml Output Total 3000 ml Balance 240 ml -2570 ml Intake Oral 240 ml 320 ml IV Total 110 ml Hemodialysis UF 3000 ml Objective General: No acute distress, awake and alert, in ICU HEENT: NCAT, sclera anicteric, PERRL, EOMI. Neck: Supple, no significant jugular venous distention, Lungs: Good inspiratory effort, clear to auscultation bilaterally, no Wheeze or Rales. Chest Wall: Left side PermCath. Heart: Regular rate and rhythm, normal S1/S2, no murmur Abdomen: soft, nontender, nondistended. Normoactive bowel sounds. / Rectal: Refused and deferred. Extremities: No Cyanosis , clubbing or edema. Right Foot dressing intact, Left foot TMA with dressing. Right UE Midline cath. Left UE AVF nonfunctional, Neuro: A&O x 3, Able to move all extremities Skin: warm, no rashes, Psych: Normal mood and affect Assessment/Plan Assessment/Plan 1. Obstructive Sleep apnea. 2. Sepsis with shock improving. 3. Right foot osteomyelitis. 4. Chronic hepatitis. 5. OslerWeberRendu syndrome (hemorrhagic telangiectasia). 6. End-stage renal disease, on Hemodialysis. 7. Diabetic autonomic neuropathy. 8. History of hypertension. 9. Human immunodeficiency virus. 10. severe pulmonary hypertension 11. Right atrium mass R/O tumor, thrombus or possible vegetation. PLAN: off pressor Abx: Vanco / Cefepime/ Flagyl Monitor Labs and Cultures Dialysis F/U with Cardiology Recommendations MRI of Right foot.. 2D Echo: Mild left atrial enlargement by 2-D. Normal left ventricular systolic function and wall motion. Left ventricular ejection fraction estimated to be 55 %. Moderate left ventricular hypertrophy. No evidence of pericardial fat or effusion. Severe left atrial enlargement. Mild right atrial enlargement. Mild right ventricular enlargement. Moderate aortic valve sclerosis and or thickening with adequate cusp excursion. Cannot r/o vegetation. Mildly thickened mitral valve leaflets with normal excursion. Heavy mitral annulus and aortic root calcification. Normal pulmonic valve structure. Normal tricuspid valve structure. IVC dilated at 2.6 cm without physiologic collapse, estimated RAP is 15 mmHg. Large round echodense mass l noted in right atrium. Cannot exclude for tumor, thrombus or possible vegetation. A color flow and spectral Doppler study was performed and revealed: Severe aortic regurgitation. Moderate to severe mitral regurgitation. Mitral diastolic velocities suggest reduced left ventricular relaxation (Grade I ). Mild tricuspid regurgitation. Tricuspid systolic velocities suggests peak right ventricular systolic pressure of 63 mmHg, consistent with severe pulmonary hypertension. Trace pulmonic regurgitation present. Papa Lunsford MD Nov 18, 2016 12:48
--- NOTE | 2016-11-18 12:55 | Internal Med Progress Note ---
Subjective Physician Name Papa Lunsford Attending Physician Didier Thornton Current Medications Medications (Trade) Dose Ordered Sig/Zohaib Route PRN Reason Start Time Stop Time Status Last Admin Dose Admin Amlodipine Besylate (Norvasc) 5 mg DAILY ORAL 11/18/16 09:00 12/18/16 08:59 11/18/16 08:30 Cefepime HCl/ Dextrose (Maxipime/D5W) 55 ml @ 110 mls/hr Q24H IVPB 11/18/16 01:00 11/25/16 00:59 11/18/16 00:07 Chlorhexidine Gluconate (Ebony-Hex 2%) 1 applic QHS TOPIC 11/17/16 21:00 12/17/16 20:59 11/17/16 20:56 Cinacalcet (Sensipar) 30 mg DAILY ORAL 11/18/16 09:00 12/18/16 08:59 11/18/16 08:30 Clopidogrel Bisulfate (Plavix) 75 mg DAILY ORAL 11/18/16 09:00 12/18/16 08:59 11/18/16 08:29 Emtricitabine (Emtriva) 200 mg WeSa@1800 ORAL 11/17/16 18:00 12/17/16 17:59 11/17/16 17:30 Fluconazole (Diflucan) 200 mg DAILY ORAL 11/18/16 09:00 11/25/16 08:59 11/18/16 08:30 Hydromorphone HCl (Dilaudid) 0.5 mg Q4H PRN IVP Severe Pain (Pain Scale 7-10) 11/17/16 15:00 11/24/16 14:59 11/18/16 12:16 Lorazepam (Ativan) 0.5 mg QHS PRN ORAL Insomnia 11/17/16 21:00 11/24/16 20:59 Metronidazole (Flagyl) 500 mg Q8HR ORAL 11/17/16 22:00 11/24/16 21:59 11/18/16 06:18 Nateglinide (Starlix) 120 mg TIAC ORAL 11/17/16 16:30 12/17/16 16:29 11/18/16 11:40 Oxycodone HCl (Roxicodone) 5 mg Q4H PRN ORAL For Pain 4-6 11/17/16 14:30 11/24/16 14:29 11/18/16 08:31 Patient Own Medication (Patient's Own Med) 2 ea BID ORAL 11/17/16 18:00 12/17/16 17:59 11/17/16 18:15 Sevelamer Carbonate (Renvela) 2,400 mg THREE TIMES A DAY GT 11/18/16 11:33 12/17/16 17:59 11/18/16 12:15 Sevelamer Carbonate 1600 mg 1,600 mg TID ORAL 11/18/16 13:00 12/18/16 12:59 11/18/16 12:15 Sodium Chloride (Sodium Chloride 1000ml bag) 1,000 ml @ 500 mls/hr Q2H PRN IVLG sbp<90 during hd 11/19/16 11:20 12/19/16 11:19 Temazepam (Restoril) 15 mg BEDTIME ORAL 11/17/16 21:00 11/24/16 20:59 11/17/16 20:56 Tenofovir Disoproxil Fumarate (Viread) 300 mg Sa@1800 ORAL 11/17/16 21:00 12/17/16 20:59 11/17/16 21:43 Vancomycin HCl (Vanco rx to dose) 1 ea DAILY PRN MISC Per rx protocol 11/17/16 15:00 12/17/16 14:59 Allergies: Coded Allergies: HEPARIN (Verified Allergy, Severe, low platelets, 06/11/14) SULFA (SULFONAMIDE ANTIBIOTICS) (Verified Allergy, Severe, nephro toxic, ) ZOLPIDEM (Verified Allergy, Unknown, 05/03/16) MEROPENEM (Verified Adverse Reaction, Intermediate, 04/01/16) Nausea and vomiting Uncoded Allergies: pork products (Allergy, Severe, rashes, 06/11/14) Subjective in Telemetry, awake, alert, responsive, No CP, No SOB, feeling okay, watching TV Objective Last Vital Signs Date Time Temp Pulse Resp B/P Pulse Ox O2 Delivery O2 Flow Rate FiO2 11/18/16 12:00 97.9 81 19 139/52 100 Room Air 11/17/16 17:00 2.0 11/17/16 07:30 28 Laboratory Tests Test 11/18/16 07:50 Random Vancomycin Level 22.3 ug/mL Heparin-PF4 Antibody Screen Pending Intake and Output 11/17/16 11/18/16 19:00 07:00 Intake Total 240 ml 430 ml Output Total 3000 ml Balance 240 ml -2570 ml Intake Oral 240 ml 320 ml IV Total 110 ml Hemodialysis UF 3000 ml Objective General: No acute distress, awake and alert,. HEENT: NCAT, sclera anicteric, PERRL, EOMI. Neck: Supple, no significant jugular venous distention, Lungs: Good inspiratory effort, clear to auscultation bilaterally, no Wheeze or Rales. Chest Wall: Left side PermCath. Heart: Regular rate and rhythm, normal S1/S2, + OMAR @ LCW. Abdomen: soft, nontender, nondistended. Normoactive bowel sounds. / Rectal: Refused and deferred. Extremities: No Cyanosis , clubbing or edema. Right Foot dressing intact, Left foot TMA with dressing. Right UE Midline cath. Left UE AVF nonfunctional, Neuro: A&O x 3, Able to move all extremities Skin: warm, no rashes, Psych: Normal mood and affect Assessment/Plan Assessment/Plan 1. Obstructive Sleep apnea. 2. Sepsis with shock improving. 3. Right foot osteomyelitis. 4. Chronic hepatitis C positive. 5. OslerWeberRendu syndrome (hemorrhagic telangiectasia). 6. End-stage renal disease, on Hemodialysis. 7. Diabetic autonomic neuropathy. 8. History of hypertension. 9. Human immunodeficiency virus. 10. severe pulmonary hypertension 11. Right atrium mass R/O tumor, thrombus or possible vegetation. PLAN: Abx: Vanco / Cefepime/ Flagyl / Diflucan Monitor Labs and Cultures Dialysis F/U with Cardiology Recommendations for MIAN soon, discuss with , Srinivas @ [phone] MRI of right foot: Acute osteomyelitis involving the posterior plantar aspect of the calcaneus adjacent to a large ulcer. 2D Echo: Mild left atrial enlargement by 2-D. Normal left ventricular systolic function and wall motion. Left ventricular ejection fraction estimated to be 55 %. Moderate left ventricular hypertrophy. No evidence of pericardial fat or effusion. Severe left atrial enlargement. Mild right atrial enlargement. Mild right ventricular enlargement. Moderate aortic valve sclerosis and or thickening with adequate cusp excursion. Cannot r/o vegetation. Mildly thickened mitral valve leaflets with normal excursion. Heavy mitral annulus and aortic root calcification. Normal pulmonic valve structure. Normal tricuspid valve structure. IVC dilated at 2.6 cm without physiologic collapse, estimated RAP is 15 mmHg. Large round echodense mass l noted in right atrium. Cannot exclude for tumor, thrombus or possible vegetation. A color flow and spectral Doppler study was performed and revealed: Severe aortic regurgitation. Moderate to severe mitral regurgitation. Mitral diastolic velocities suggest reduced left ventricular relaxation (Grade I ). Mild tricuspid regurgitation. Tricuspid systolic velocities suggests peak right ventricular systolic pressure of 63 mmHg, consistent with severe pulmonary hypertension. Trace pulmonic regurgitation present. Papa Lunsford MD Nov 18, 2016 12:55
[2016-11-18 16:00] VITALS: BP 138/60
[2016-11-18] MEDS ORDERED: Tubing IV Secondary IV ONE (16:30)
[2016-11-18] MEDS ORDERED: NS 275ml ONE (16:30)
[2016-11-18 20:00] VITALS: BP 113/41
--- NOTE | 2016-11-18 21:20 | Pulmonology Progress Note ---
Assessment/Plan Assessment/Plan 1. Sleep apnea. 2. Sepsis with shock. 3. Right foot osteomyelitis. 4. Chronic hepatitis. 5. OslerWeberRendu syndrome (hemorrhagic telangiectasia). 6. End-stage renal disease, on dialysis. 7. Diabetic autonomic neuropathy. 8. History of hypertension. 9. Human immunodeficiency virus. encourage bipap note echo with RA mass, possible thrombus or SBE was not seen on MIAN in June, he has hemorrhagic telangectasia and will bleed with anticoagulants HD per renal for today will need MIAN to be discussed iwth Dr. Villegas. still pending his comments continue abs for now. Current Medications Medications (Trade) Dose Ordered Sig/Zohaib Route PRN Reason Start Time Stop Time Status Last Admin Dose Admin Amlodipine Besylate (Norvasc) 5 mg DAILY ORAL 11/18/16 09:00 12/18/16 08:59 11/18/16 08:30 Cefepime HCl/ Dextrose (Maxipime/D5W) 55 ml @ 110 mls/hr Q24H IVPB 11/18/16 01:00 11/25/16 00:59 11/18/16 00:07 Chlorhexidine Gluconate (Ebony-Hex 2%) 1 applic QHS TOPIC 11/17/16 21:00 12/17/16 20:59 11/17/16 20:56 Cinacalcet (Sensipar) 30 mg DAILY ORAL 11/18/16 09:00 12/18/16 08:59 11/18/16 08:30 Clopidogrel Bisulfate (Plavix) 75 mg DAILY ORAL 11/18/16 09:00 12/18/16 08:59 11/18/16 08:29 Emtricitabine (Emtriva) 200 mg WeSa@1800 ORAL 11/17/16 18:00 12/17/16 17:59 11/17/16 17:30 Fluconazole (Diflucan) 200 mg DAILY ORAL 11/18/16 09:00 11/25/16 08:59 11/18/16 08:30 Hydromorphone HCl (Dilaudid) 0.5 mg Q4H PRN IVP Severe Pain (Pain Scale 7-10) 11/17/16 15:00 11/24/16 14:59 11/18/16 17:18 Lorazepam (Ativan) 0.5 mg QHS PRN ORAL Insomnia 11/17/16 21:00 11/24/16 20:59 Metronidazole (Flagyl) 500 mg Q8HR ORAL 11/17/16 22:00 11/24/16 21:59 11/18/16 13:43 Nateglinide (Starlix) 120 mg TIAC ORAL 11/17/16 16:30 12/17/16 16:29 11/18/16 17:18 Oxycodone HCl (Roxicodone) 5 mg Q4H PRN ORAL For Pain 4-6 11/17/16 14:30 11/24/16 14:29 11/18/16 08:31 Patient Own Medication (Patient's Own Med) 2 ea BID ORAL 11/17/16 18:00 12/17/16 17:59 11/17/16 18:15 Sevelamer Carbonate (Renvela) 2,400 mg THREE TIMES A DAY GT 11/18/16 11:33 12/17/16 17:59 11/18/16 17:18 Sevelamer Carbonate 1600 mg 1,600 mg TID ORAL 11/18/16 13:00 12/18/16 12:59 11/18/16 17:18 Sodium Chloride (Sodium Chloride 1000ml bag) 1,000 ml @ 500 mls/hr Q2H PRN IVLG sbp<90 during hd 11/19/16 11:20 12/19/16 11:19 Temazepam (Restoril) 15 mg BEDTIME ORAL 11/17/16 21:00 11/24/16 20:59 11/17/16 20:56 Tenofovir Disoproxil Fumarate (Viread) 300 mg Sa@1800 ORAL 11/17/16 21:00 12/17/16 20:59 11/17/16 21:43 Vancomycin HCl (Vanco rx to dose) 1 ea DAILY PRN MISC Per rx protocol 11/17/16 15:00 12/17/16 14:59 Subjective Allergies: Coded Allergies: HEPARIN (Verified Allergy, Severe, low platelets, 06/11/14) SULFA (SULFONAMIDE ANTIBIOTICS) (Verified Allergy, Severe, nephro toxic, ) ZOLPIDEM (Verified Allergy, Unknown, 05/03/16) MEROPENEM (Verified Adverse Reaction, Intermediate, 04/01/16) Nausea and vomiting Uncoded Allergies: pork products (Allergy, Severe, rashes, 06/11/14) Subjective doing well today remains on o2 no events using bipap at night no cp nv or bleeding for HD today no fevere tolerating po Objective Last 24 Hour Vital Signs Date Time Temp Pulse Resp B/P Pulse Ox O2 Delivery O2 Flow Rate FiO2 11/18/16 20:00 98.1 79 20 113/41 98 Room Air 11/18/16 20:00 Room Air 11/18/16 20:00 96 Room Air 11/18/16 17:48 97.7 11/18/16 16:00 97.7 83 19 138/60 99 Room Air 11/18/16 16:00 81 11/18/16 12:00 97.9 81 19 139/52 100 Room Air 11/18/16 12:00 79 11/18/16 08:30 72 146/47 11/18/16 08:00 97.7 72 19 146/47 100 Room Air 11/18/16 08:00 75 11/18/16 07:04 96 Room Air 11/18/16 07:04 Room Air 11/18/16 04:00 97.7 72 19 127/39 98 Room Air 11/18/16 04:00 69 11/18/16 00:00 97.9 72 16 126/42 97 Room Air 11/18/16 00:00 73 Intake and Output 11/17/16 11/18/16 19:00 07:00 Intake Total 240 ml 430 ml Output Total 3000 ml Balance 240 ml -2570 ml Intake Oral 240 ml 320 ml IV Total 110 ml Hemodialysis UF 3000 ml General Appearance: WD/WN HEENT: atraumatic, anicteric Respiratory/Chest: lungs clear, normal breath sounds Cardiovascular: normal rate, regular rhythm Abdomen: soft, non tender, no organomegaly Extremities: no cyanosis Neurologic/Psychiatric: no motor/sensory deficits, oriented x 3 Laboratory Tests 11/18/16 07:50: Random Vancomycin Level 22.3, Heparin-PF4 Antibody Screen [Pending] Current Medications Medications (Trade) Dose Ordered Sig/Zohaib Route PRN Reason Start Time Stop Time Status Last Admin Dose Admin Amlodipine Besylate (Norvasc) 5 mg DAILY ORAL 11/18/16 09:00 12/18/16 08:59 11/18/16 08:30 Cefepime HCl/ Dextrose (Maxipime/D5W) 55 ml @ 110 mls/hr Q24H IVPB 11/18/16 01:00 11/25/16 00:59 11/18/16 00:07 Chlorhexidine Gluconate (Ebony-Hex 2%) 1 applic QHS TOPIC 11/17/16 21:00 12/17/16 20:59 11/17/16 20:56 Cinacalcet (Sensipar) 30 mg DAILY ORAL 11/18/16 09:00 12/18/16 08:59 11/18/16 08:30 Clopidogrel Bisulfate (Plavix) 75 mg DAILY ORAL 11/18/16 09:00 12/18/16 08:59 11/18/16 08:29 Emtricitabine (Emtriva) 200 mg WeSa@1800 ORAL 11/17/16 18:00 12/17/16 17:59 11/17/16 17:30 Fluconazole (Diflucan) 200 mg DAILY ORAL 11/18/16 09:00 11/25/16 08:59 11/18/16 08:30 Hydromorphone HCl (Dilaudid) 0.5 mg Q4H PRN IVP Severe Pain (Pain Scale 7-10) 11/17/16 15:00 11/24/16 14:59 11/18/16 17:18 Lorazepam (Ativan) 0.5 mg QHS PRN ORAL Insomnia 11/17/16 21:00 11/24/16 20:59 Metronidazole (Flagyl) 500 mg Q8HR ORAL 11/17/16 22:00 11/24/16 21:59 11/18/16 13:43 Nateglinide (Starlix) 120 mg TIAC ORAL 11/17/16 16:30 12/17/16 16:29 11/18/16 17:18 Oxycodone HCl (Roxicodone) 5 mg Q4H PRN ORAL For Pain 4-6 11/17/16 14:30 11/24/16 14:29 11/18/16 08:31 Patient Own Medication (Patient's Own Med) 2 ea BID ORAL 11/17/16 18:00 12/17/16 17:59 11/17/16 18:15 Sevelamer Carbonate (Renvela) 2,400 mg THREE TIMES A DAY GT 11/18/16 11:33 12/17/16 17:59 11/18/16 17:18 Sevelamer Carbonate 1600 mg 1,600 mg TID ORAL 11/18/16 13:00 12/18/16 12:59 11/18/16 17:18 Sodium Chloride (Sodium Chloride 1000ml bag) 1,000 ml @ 500 mls/hr Q2H PRN IVLG sbp<90 during hd 11/19/16 11:20 12/19/16 11:19 Temazepam (Restoril) 15 mg BEDTIME ORAL 11/17/16 21:00 11/24/16 20:59 11/17/16 20:56 Tenofovir Disoproxil Fumarate (Viread) 300 mg Sa@1800 ORAL 11/17/16 21:00 12/17/16 20:59 11/17/16 21:43 Vancomycin HCl (Vanco rx to dose) 1 ea DAILY PRN MISC Per rx protocol 11/17/16 15:00 12/17/16 14:59 GLADYS ELDER DO Nov 18, 2016 21:20
[2016-11-18] MEDS: Dyna-Hex 2% Top Sol 8oz TOPIC SCH (21:26)
[2016-11-19 00:07] VITALS: BP 116/40
[2016-11-19] MEDS: Cefepime HCl 0.5 GM in D5W 55 ML IVPB SCH (01:00)
[2016-11-19] MEDS: Hydromorphone 0.5mg/0.5ml inj IVP PRN ×5 (02:15→21:08)
[2016-11-19 04:28] VITALS: BP 125/46
[2016-11-19] MEDS: metroNIDAZOLE 500mg tab ORAL SCH ×3 (06:36→22:24)
[2016-11-19 08:00] VITALS: BP 126/42
[2016-11-19 08:28] LABS: BASOPHILS % (AUTO) 2.1 % (0.0-2.0); EOSINOPHILS % (AUTO) 6.5 % (0.0-3.0); INR 1.1 (0.9-1.1); MEAN CORPUSCULAR HEMOGLOBIN 27.4 PG (27.0-31.0); MEAN CORPUSCULAR HGB CONC 31.5 G/DL (32.0-36.0); MEAN CORPUSCULAR VOLUME 87 FL (80-99); MEAN PLATELET VOLUME 7.3 FL (6.5-10.1); MONOCYTES % (AUTO) 18.7 % (1.0-10.0); NEUTROPHILS % (AUTO) 41.6 % (45.0-75.0); PLATELET COUNT 226 K/UL (150-450); PROTHROMBIN TIME 11.6 SEC (9.30-11.50); RED BLOOD COUNT 4.27 M/UL (4.70-6.10); RED CELL DISTRIBUTION WIDTH 20.8 % (11.6-14.8); WHITE BLOOD COUNT 3.8 K/UL (4.8-10.8)
[2016-11-19 08:37] LABS: CALCIUM 7.3 mg/dL (8.6-10.2); CREATININE 10.6 mg/dL (0.7-1.2); GLOMERULAR FILTRATION RATE 6.1 mL/min (>60)
[2016-11-19 08:50] LABS: POTASSIUM 6.1 mEQ/L (3.4-4.9)
[2016-11-19] MEDS: Fluconazole 100mg tab ORAL SCH (08:58)
[2016-11-19] MEDS: oxyCODONE 5mg IR tab ORAL PRN ×3 (08:58→22:25)
[2016-11-19] MEDS: Sensipar 30mg Tab ORAL SCH (08:59)
[2016-11-19] MEDS: Renvela 800mg Pkt ORAL SCH ×3 (08:59→18:25)
[2016-11-19] MEDS: Renvela 2400 mg pkt GT SCH ×3 (08:59→18:25)
[2016-11-19] MEDS: VIRACEPT ORAL SCH ×2 (09:05→18:26)
--- NOTE | 2016-11-19 10:16 | Consultation ---
DATE OF CONSULTATION: 11/17/2016 VASCULAR SURGERY CONSULTATION SURGEON: Marcos Dang M.D. REFERRING PHYSICIAN: 1. Victor Hugo Blackburn D.P.M. 2. Didier Thornton M.D. REASON FOR EVALUATION: Right foot gangrene. HISTORY OF PRESENT ILLNESS: This is a 61-year-old male who is well known to our vascular service. The patient presented to the hospital with worsening right foot and heel necrosis and gangrene. The patient reportedly had undergone debridement at [place]. 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 Past Medical History: As above, history of end-stage renal failure, on hemodialysis; history of left AV shunt placement; left chest Perma catheter placement all by other physician, history of hepatitis C; HIV, Kqckv-Rmwih-Pvqqs syndrome, valvular cardiomyopathy, osteomyelitis, bradycardia. 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 ALLERGIES: Multiple, heparin, meropenem, sulfa, Zolpidem, and soy products. SOCIAL HISTORY: Denies any history of smoking, drugs, or alcohol abuse. FAMILY HISTORY: Unremarkable. REVIEW OF SYSTEMS: Cardiovascular: No history of chest pain or palpitation. Pulmonary: No cough. No hemoptysis. Gastrointestinal: No history of abdominal pain, constipation, or diarrhea. Genitourinary: No urinary symptoms. Neurological: No history of stroke or seizures. PHYSICAL EXAMINATION: Vital signs: The patient is afebrile and temperature 96, heart rate 76, blood pressure 139/46, and respirations 18. LUNGS: Clear to auscultation. HEART: Heart rate is regular. ABDOMEN: Soft and nontender. Extremities: He has palpable femoral pulses, weakly palpable popliteal pulses. Absent dorsalis pedis and posterior tibial pulses bilaterally. Feet are warm. Right foot wound toe and heel necrosis noted. LABORATORY DATA: Revealed a WBC of 4.7, hemoglobin 11.2, and platelet count is 237,000. BUN is 42, creatinine 2.12. IMPRESSION: 1. 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 2. Calcific tibial arterial occlusive disease. 3. History of heparin allergy, heparin-induced thrombocytopenia. 4. End-stage renal failure, on hemodialysis. 5. Hepatitis C and human immunodeficiency virus. 6. Malfunctioning AV shunt with hx of chest Perma catheter placed by other physicians PLAN: We will review the patient lower extremity Duplex and obtain AV shunt duplex. The patient need to have selective right leg angiogram and further tibial revascularization prior to right foot heel gangrene I&D by podiatry. Medical optimization in progress. HIV per ID and HIT eval per heme d/w pt at length d/w RN at bedside d/w podiatry Dr Blackburn Marcos Dang M.D. DR: KANDACE JOB#: [id number] CC: AMBAR
[2016-11-19 12:00] VITALS: BP 142/49
--- NOTE | 2016-11-19 15:42 | Infectious Diseases Prog Note ---
Assessment/Plan Assessment/Plan ASSESSMENT AND PLAN: 1. bilateral R>L foot wounds, right foot and heel infected wounds and necrosis - wound culture with yeast, likely polymicrobial - MRI c/o osteo right ankle and possible right foot - wound culture with nicole, likely polymicrobial infection - podiatry and vascular surgery f/u noted - continue vancomycin, cefepime, flagy and diflucan - failed outpatient zosyn - wound care per protocol 2. patient getting treated for right heel/foot osteo as outpatient with vancomycin and zosyn based on most recent wound culture in my office 3. End-stage renal disease, on hemodialysis. 4. Hypertension and diabetes, hep c + 5. Human immunodeficiency virus. Continue antiretroviral treatment at this time from home, cd4 ordered. Pt f/u with Dr. Chinchilla for HIV care. 6. Blood sugar and blood pressure control for diabetes and hypertension, per primary. 7. Anemia. 8. Hemodialysis per Renal. 9. Transient ischemic attack. 10. Congestive heart failure. 11. History of osteomyelitis of left foot. 12. Hepatis C. 13. History of seizure. 14. Weakness. 15. Past medical history noted. 16. Allergies to Heparin, meropenem, sulfa, and Zolpidem. 17. MAR was noted. 18. Case was discussed with RN. 19. Social history is negative. 20. Family history is noncontributory. 21. Case discussed with Dr. Thornton. 22. Continue treatment per primary consultants. 23. Wound care protocol. 24. Podiatry followup. 25. Continue Vascular Surgery evaluation. 26. Hypoglycemia treatment per primary. Subjective Constitutional: Denies: fever HEENT: Denies: congestion Respiratory: Denies: shortness of breath Cardiovascular: Denies: chest pain Gastrointestinal/Abdominal: Denies: constipation, diarrhea, nausea, vomiting Genitourinary: Reports: other - no agarwal Neurologic: Denies: headache Psychiatric: Denies: depression Skin: Denies: rash Hematologic: Denies: bleeding Musculoskeletal: Denies: pain Allergies: Coded Allergies: HEPARIN (Verified Allergy, Severe, low platelets, 06/11/14) SULFA (SULFONAMIDE ANTIBIOTICS) (Verified Allergy, Severe, nephro toxic, ) ZOLPIDEM (Verified Allergy, Unknown, 05/03/16) MEROPENEM (Verified Adverse Reaction, Intermediate, 04/01/16) Nausea and vomiting Uncoded Allergies: pork products (Allergy, Severe, rashes, 06/11/14) Objective Vital Signs Last 24 Hour Vital Signs Date Time Temp Pulse Resp B/P Pulse Ox O2 Delivery O2 Flow Rate FiO2 11/19/16 12:00 97.9 82 20 142/49 99 Room Air 11/19/16 11:20 Room Air 11/19/16 11:20 97 Room Air 11/19/16 08:58 74 126/42 11/19/16 08:00 97.5 74 20 126/42 99 Room Air 11/19/16 07:07 97.0 11/19/16 04:28 97.0 80 20 125/46 96 Room Air 11/19/16 04:00 85 11/19/16 00:07 97.3 75 20 116/40 99 Room Air 11/19/16 00:00 81 11/18/16 20:10 79 11/18/16 20:00 98.1 79 20 113/41 98 Room Air 11/18/16 20:00 Room Air 11/18/16 20:00 96 Room Air 11/18/16 16:00 97.7 83 19 138/60 99 Room Air 11/18/16 16:00 81 Height (Feet): 6 Height (Inches): 8.00 Weight (Pounds): 165 General Appearance: no acute distress HEENT: normocephalic, atraumatic, anicteric, mucous membranes moist, PERRL, EOMI, pharynx normal, supple, no JVD Respiratory/Chest: lungs clear, normal breath sounds, no respiratory distress, no accessory muscle use Cardiovascular: normal rate, regular rhythm, no gallop/murmur, no JVD Abdomen: normal bowel sounds, soft, non tender, no organomegaly, non distended Genitourinary: other - no agarwal Extremities: other - wounds covered Skin: no rash, no ulcers Neurologic/Psychiatric: alert Lymphatic: no neck adenopathy Musculoskeletal: no effusion Objective bilateral foot x-rays - no osteo chest x-ray - atx MRI - right ankle and foot: Impression: Acute osteomyelitis involving the posterior plantar aspect of the calcaneus adjacent to a large ulcer. Impression: Nonspecific, very small foci of abnormal signal at the dorsal heads of the first and fourth proximal phalanges. If there is evidence of active infection with ulcers in these 2 locations, osteomyelitis should be considered. Please correlate clinically. Microbiology Date/Time Source Procedure Growth Status 11/11/16 16:05 Blood Blood Culture - Final NO GROWTH AFTER 5 DAYS Complete 11/10/16 19:50 Nasal Nares MRSA Culture - Final NO METHICILLIN RESISTANT STAPH AUREUS... Complete 11/13/16 02:00 Foot Right Gram Stain - Final Complete 11/13/16 02:00 Aerobic Culture - Final Nicole Parapsilosis Complete 11/13/16 02:00 Foot Right Anaerobic Culture - Final NO ANAEROBES ISOLATED Complete Laboratory Tests Test 11/19/16 07:45 White Blood Count 3.8 K/UL (4.8-10.8) L Red Blood Count 4.27 M/UL (4.70-6.10) L Hemoglobin 11.7 G/DL (14.2-18.0) L Hematocrit 37.1 % (42.0-52.0) L Mean Corpuscular Volume 87 FL (80-99) Mean Corpuscular Hemoglobin 27.4 PG (27.0-31.0) Mean Corpuscular Hemoglobin Concent 31.5 G/DL (32.0-36.0) L Red Cell Distribution Width 20.8 % (11.6-14.8) H Platelet Count 226 K/UL (150-450) Mean Platelet Volume 7.3 FL (6.5-10.1) Neutrophils (%) (Auto) 41.6 % (45.0-75.0) L Lymphocytes (%) (Auto) 31.0 % (20.0-45.0) Monocytes (%) (Auto) 18.7 % (1.0-10.0) H Eosinophils (%) (Auto) 6.5 % (0.0-3.0) H Basophils (%) (Auto) 2.1 % (0.0-2.0) H Erythrocyte Sedimentation Rate 71 MM/HR (0-20) H Prothrombin Time 11.6 SEC (9.30-11.50) H Prothromb Time International Ratio 1.1 (0.9-1.1) Activated Partial Thromboplast Time 35 SEC (23-33) H Sodium Level 131 mEQ/L (135-145) L Potassium Level 6.1 mEQ/L (3.4-4.9) *H Chloride Level 91 mEQ/L (98-107) L Carbon Dioxide Level 19 mEQ/L (20-30) L Anion Gap 21 (5-15) H Blood Urea Nitrogen 93 mg/dL (7-23) H Creatinine 10.6 mg/dL (0.7-1.2) H Estimat Glomerular Filtration Rate 6.1 mL/min (>60) Glucose Level 56 mg/dL (74-106) L Calcium Level 7.3 mg/dL (8.6-10.2) L Current Medications Medications (Trade) Dose Ordered Sig/Zohaib Route PRN Reason Start Time Stop Time Status Last Admin Dose Admin Amlodipine Besylate (Norvasc) 5 mg DAILY ORAL 11/18/16 09:00 12/18/16 08:59 11/19/16 08:58 Cefepime HCl/ Dextrose (Maxipime/D5W) 55 ml @ 110 mls/hr Q24H IVPB 11/18/16 01:00 11/25/16 00:59 11/19/16 01:00 Chlorhexidine Gluconate (Ebony-Hex 2%) 1 applic QHS TOPIC 11/17/16 21:00 12/17/16 20:59 11/18/16 21:26 Cinacalcet (Sensipar) 30 mg DAILY ORAL 11/18/16 09:00 12/18/16 08:59 11/19/16 08:59 Clopidogrel Bisulfate (Plavix) 75 mg DAILY ORAL 11/18/16 09:00 12/18/16 08:59 11/19/16 08:58 Emtricitabine (Emtriva) 200 mg WeSa@1800 ORAL 11/17/16 18:00 12/17/16 17:59 11/17/16 17:30 Fluconazole (Diflucan) 200 mg DAILY ORAL 11/18/16 09:00 11/25/16 08:59 11/19/16 08:58 Hydromorphone HCl (Dilaudid) 0.5 mg Q4H PRN IVP Severe Pain (Pain Scale 7-10) 11/17/16 15:00 11/24/16 14:59 11/19/16 12:01 Lorazepam (Ativan) 0.5 mg QHS PRN ORAL Insomnia 11/17/16 21:00 11/24/16 20:59 Metronidazole (Flagyl) 500 mg Q8HR ORAL 11/17/16 22:00 11/24/16 21:59 11/19/16 14:23 Nateglinide (Starlix) 120 mg TIAC ORAL 11/17/16 16:30 12/17/16 16:29 11/18/16 17:18 Oxycodone HCl (Roxicodone) 5 mg Q4H PRN ORAL For Pain 4-6 11/17/16 14:30 11/24/16 14:29 11/19/16 14:23 Patient Own Medication (Patient's Own Med) 2 ea BID ORAL 11/17/16 18:00 12/17/16 17:59 11/19/16 09:05 Sevelamer Carbonate (Renvela) 2,400 mg THREE TIMES A DAY GT 11/18/16 11:33 12/17/16 17:59 11/19/16 12:01 Sevelamer Carbonate 1600 mg 1,600 mg TID ORAL 11/18/16 13:00 12/18/16 12:59 11/19/16 12:01 Sodium Chloride (Sodium Chloride 1000ml bag) 1,000 ml @ 500 mls/hr Q2H PRN IVLG sbp<90 during hd 11/19/16 11:20 12/19/16 11:19 Temazepam (Restoril) 15 mg BEDTIME ORAL 11/17/16 21:00 11/24/16 20:59 11/18/16 21:27 Tenofovir Disoproxil Fumarate (Viread) 300 mg Sa@1800 ORAL 11/17/16 21:00 12/17/16 20:59 11/17/16 21:43 Vancomycin HCl (Vanco rx to dose) 1 ea DAILY PRN MISC Per rx protocol 11/17/16 15:00 12/17/16 14:59 INOCENCIA DOS SANTOS Nov 19, 2016 15:42
--- NOTE | 2016-11-19 15:53 | Cardiac Electrophysiology PN ---
Assessment/Plan Assessment/Plan 1. Bradycardia with sinus arrest and junctional rhythm, heart rate in the 40s as well as left anterior fascicular block. Ruled out myocardial infarction . Tapered off dopamine. HR much better now. 2. Hypertension, on Norvasc 5 mg daily. 3. End-stage renal disease, on hemodialysis. 4. History of peripheral vascular disease, status post metatarsal amputation, on antibiotic with right foot ulcer. 5. Human immunodeficiency virus. 6. Hepatitis C. 7. Larger right atrial echogenic material/mass. Reschedule MIAN by Dr Reed. 8. 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 10. Viability study 10/31/16 showed 10% nonviable myocardium. 11. MIAN 07/03/16 at [facility] severe MR and AI but reported Right atrium was normal. NOE RN Subjective Subjective Out of ICU. HR now in 60s. No chest pain or SOB. Objective Last 24 Hour Vital Signs Date Time Temp Pulse Resp B/P Pulse Ox O2 Delivery O2 Flow Rate FiO2 11/19/16 12:00 97.9 82 20 142/49 99 Room Air 11/19/16 11:20 Room Air 11/19/16 11:20 97 Room Air 11/19/16 08:58 74 126/42 11/19/16 08:00 97.5 74 20 126/42 99 Room Air 11/19/16 07:07 97.0 11/19/16 04:28 97.0 80 20 125/46 96 Room Air 11/19/16 04:00 85 11/19/16 00:07 97.3 75 20 116/40 99 Room Air 11/19/16 00:00 81 11/18/16 20:10 79 11/18/16 20:00 98.1 79 20 113/41 98 Room Air 11/18/16 20:00 Room Air 11/18/16 20:00 96 Room Air 11/18/16 16:00 97.7 83 19 138/60 99 Room Air 11/18/16 16:00 81 Intake and Output 11/18/16 11/19/16 19:00 07:00 Intake Total 360 ml 210 ml Balance 360 ml 210 ml Intake Oral 360 ml 100 ml IV Total 110 ml Laboratory Tests Test 11/19/16 07:45 White Blood Count 3.8 K/UL (4.8-10.8) L Red Blood Count 4.27 M/UL (4.70-6.10) L Hemoglobin 11.7 G/DL (14.2-18.0) L Hematocrit 37.1 % (42.0-52.0) L Mean Corpuscular Volume 87 FL (80-99) Mean Corpuscular Hemoglobin 27.4 PG (27.0-31.0) Mean Corpuscular Hemoglobin Concent 31.5 G/DL (32.0-36.0) L Red Cell Distribution Width 20.8 % (11.6-14.8) H Platelet Count 226 K/UL (150-450) Mean Platelet Volume 7.3 FL (6.5-10.1) Neutrophils (%) (Auto) 41.6 % (45.0-75.0) L Lymphocytes (%) (Auto) 31.0 % (20.0-45.0) Monocytes (%) (Auto) 18.7 % (1.0-10.0) H Eosinophils (%) (Auto) 6.5 % (0.0-3.0) H Basophils (%) (Auto) 2.1 % (0.0-2.0) H Erythrocyte Sedimentation Rate 71 MM/HR (0-20) H Prothrombin Time 11.6 SEC (9.30-11.50) H Prothromb Time International Ratio 1.1 (0.9-1.1) Activated Partial Thromboplast Time 35 SEC (23-33) H Sodium Level 131 mEQ/L (135-145) L Potassium Level 6.1 mEQ/L (3.4-4.9) *H Chloride Level 91 mEQ/L (98-107) L Carbon Dioxide Level 19 mEQ/L (20-30) L Anion Gap 21 (5-15) H Blood Urea Nitrogen 93 mg/dL (7-23) H Creatinine 10.6 mg/dL (0.7-1.2) H Estimat Glomerular Filtration Rate 6.1 mL/min (>60) Glucose Level 56 mg/dL (74-106) L Calcium Level 7.3 mg/dL (8.6-10.2) L Objective HEAD AND NECK: Shows no JVD. LUNGS: Decreased breath sounds. CARDIOVASCULAR: Shows regular S1 and S2. ABDOMEN: Soft. EXTREMITIES: No pitting edema was there in the right foot ulcer as well as left metatarsal amputation. CLIFTON KEARNEY Nov 19, 2016 15:53
[2016-11-19 16:00] VITALS: BP 120/40
--- NOTE | 2016-11-19 16:36 | Nephrology Progress Note ---
Assessment/Plan Problem List: (1) Osteomyelitis (2) ESRD (end stage renal disease) (3) HTN (hypertension) (4) Hepatitis C (5) Hypoglycemia (6) Vascular disease (7) Valvular cardiomyopathy (8) Rjcbo-Jnuci-Dpzic syndrome (9) Bradycardia (10) Hyperkalemia Plan Dialysis 11/19 via cath, This should correct hyperkalemia . No fluid overload. His pain and infection could be monitored with amputations and earlier rehab- -defer to pmd post after fbradycardia episode, bp nl, cardiology eval reviewed, has RA mass. With OWR high risk of hemorrhage if anticoagulated--d/w Dr. Tate Subjective Constitutional: Reports: weakness HEENT: Reports: no symptoms Genitourinary: Reports: no symptoms Neurologic/Psychiatric: Reports: no symptoms Subjective foot pain Objective Objective Last 24 Hour Vital Signs Date Time Temp Pulse Resp B/P Pulse Ox O2 Delivery O2 Flow Rate FiO2 11/19/16 12:00 97.9 82 20 142/49 99 Room Air 11/19/16 11:20 Room Air 11/19/16 11:20 97 Room Air 11/19/16 08:58 74 126/42 11/19/16 08:00 97.5 74 20 126/42 99 Room Air 11/19/16 07:07 97.0 11/19/16 04:28 97.0 80 20 125/46 96 Room Air 11/19/16 04:00 85 11/19/16 00:07 97.3 75 20 116/40 99 Room Air 11/19/16 00:00 81 11/18/16 20:10 79 11/18/16 20:00 98.1 79 20 113/41 98 Room Air 11/18/16 20:00 Room Air 11/18/16 20:00 96 Room Air Intake and Output 11/18/16 11/19/16 19:00 07:00 Intake Total 360 ml 210 ml Balance 360 ml 210 ml Intake Oral 360 ml 100 ml IV Total 110 ml Laboratory Tests 11/19/16 07:45: White Blood Count 3.8L, Red Blood Count 4.27L, Hemoglobin 11.7L, Hematocrit 37.1L, Mean Corpuscular Volume 87, Mean Corpuscular Hemoglobin 27.4, Mean Corpuscular Hemoglobin Concent 31.5L, Red Cell Distribution Width 20.8H, Platelet Count 226, Mean Platelet Volume 7.3, Neutrophils (%) (Auto) 41.6L, Lymphocytes (%) (Auto) 31.0, Monocytes (%) (Auto) 18.7H, Eosinophils (%) (Auto) 6.5H, Basophils (%) (Auto) 2.1H, Erythrocyte Sedimentation Rate 71H, Prothrombin Time 11.6H, Prothromb Time International Ratio 1.1, Activated Partial Thromboplast Time 35H, Sodium Level 131L, Potassium Level 6.1*H, Chloride Level 91L, Carbon Dioxide Level 19L, Anion Gap 21H, Blood Urea Nitrogen 93H, Creatinine 10.6H, Estimat Glomerular Filtration Rate 6.1, Glucose Level 56L, Calcium Level 7.3L Height (Feet): 6 Height (Inches): 8.00 Weight (Pounds): 165 General Appearance: no apparent distress, alert EENT: normal ENT inspection Neck: normal alignment Cardiovascular: regular rhythm Respiratory/Chest: lungs clear Abdomen: non tender Extremities: other - no edema Neurologic: [employer] administrator II-XII grossly normal DURGA MORE Nov 19, 2016 16:36
--- NOTE | 2016-11-19 17:19 | Pulmonology Progress Note ---
Assessment/Plan Assessment/Plan 1. Sleep apnea. 2. Sepsis with shock. 3. Right foot osteomyelitis. 4. Chronic hepatitis. 5. OslerWeberRendu syndrome (hemorrhagic telangiectasia). 6. End-stage renal disease, on dialysis. 7. Diabetic autonomic neuropathy. 8. History of hypertension. 9. Human immunodeficiency virus. tolerating BiPAP RA mass, possible thrombus or SBE, MIAN pending cont BiPAP Subjective Constitutional: Denies: fever Respiratory: Denies: shortness of breath Allergies: Coded Allergies: HEPARIN (Verified Allergy, Severe, low platelets, 06/11/14) SULFA (SULFONAMIDE ANTIBIOTICS) (Verified Allergy, Severe, nephro toxic, ) ZOLPIDEM (Verified Allergy, Unknown, 05/03/16) MEROPENEM (Verified Adverse Reaction, Intermediate, 04/01/16) Nausea and vomiting Uncoded Allergies: pork products (Allergy, Severe, rashes, 06/11/14) Objective Last 24 Hour Vital Signs Date Time Temp Pulse Resp B/P Pulse Ox O2 Delivery O2 Flow Rate FiO2 11/19/16 16:00 97.7 78 22 120/40 99 Room Air 11/19/16 12:00 97.9 82 20 142/49 99 Room Air 11/19/16 11:20 Room Air 11/19/16 11:20 97 Room Air 11/19/16 08:58 74 126/42 11/19/16 08:00 97.5 74 20 126/42 99 Room Air 11/19/16 07:07 97.0 11/19/16 04:28 97.0 80 20 125/46 96 Room Air 11/19/16 04:00 85 11/19/16 00:07 97.3 75 20 116/40 99 Room Air 11/19/16 00:00 81 11/18/16 20:10 79 11/18/16 20:00 98.1 79 20 113/41 98 Room Air 11/18/16 20:00 Room Air 11/18/16 20:00 96 Room Air Intake and Output 11/18/16 11/19/16 19:00 07:00 Intake Total 360 ml 210 ml Balance 360 ml 210 ml Intake Oral 360 ml 100 ml IV Total 110 ml General Appearance: no acute distress Respiratory/Chest: lungs clear Cardiovascular: normal rate Laboratory Tests 11/19/16 07:45: White Blood Count 3.8L, Red Blood Count 4.27L, Hemoglobin 11.7L, Hematocrit 37.1L, Mean Corpuscular Volume 87, Mean Corpuscular Hemoglobin 27.4, Mean Corpuscular Hemoglobin Concent 31.5L, Red Cell Distribution Width 20.8H, Platelet Count 226, Mean Platelet Volume 7.3, Neutrophils (%) (Auto) 41.6L, Lymphocytes (%) (Auto) 31.0, Monocytes (%) (Auto) 18.7H, Eosinophils (%) (Auto) 6.5H, Basophils (%) (Auto) 2.1H, Erythrocyte Sedimentation Rate 71H, Prothrombin Time 11.6H, Prothromb Time International Ratio 1.1, Activated Partial Thromboplast Time 35H, Sodium Level 131L, Potassium Level 6.1*H, Chloride Level 91L, Carbon Dioxide Level 19L, Anion Gap 21H, Blood Urea Nitrogen 93H, Creatinine 10.6H, Estimat Glomerular Filtration Rate 6.1, Glucose Level 56L, Calcium Level 7.3L Current Medications Medications (Trade) Dose Ordered Sig/Zohaib Route PRN Reason Start Time Stop Time Status Last Admin Dose Admin Amlodipine Besylate (Norvasc) 5 mg DAILY ORAL 11/18/16 09:00 12/18/16 08:59 11/19/16 08:58 Cefepime HCl/ Dextrose (Maxipime/D5W) 55 ml @ 110 mls/hr Q24H IVPB 11/18/16 01:00 11/25/16 00:59 11/19/16 01:00 Chlorhexidine Gluconate (Ebony-Hex 2%) 1 applic QHS TOPIC 11/17/16 21:00 12/17/16 20:59 11/18/16 21:26 Cinacalcet (Sensipar) 30 mg DAILY ORAL 11/18/16 09:00 12/18/16 08:59 11/19/16 08:59 Clopidogrel Bisulfate (Plavix) 75 mg DAILY ORAL 11/18/16 09:00 12/18/16 08:59 11/19/16 08:58 Emtricitabine (Emtriva) 200 mg WeSa@1800 ORAL 11/17/16 18:00 12/17/16 17:59 11/17/16 17:30 Fluconazole (Diflucan) 200 mg DAILY ORAL 11/18/16 09:00 11/25/16 08:59 11/19/16 08:58 Hydromorphone HCl (Dilaudid) 0.5 mg Q4H PRN IVP Severe Pain (Pain Scale 7-10) 11/17/16 15:00 11/24/16 14:59 11/19/16 16:21 Lorazepam (Ativan) 0.5 mg QHS PRN ORAL Insomnia 11/17/16 21:00 11/24/16 20:59 Metronidazole (Flagyl) 500 mg Q8HR ORAL 11/17/16 22:00 11/24/16 21:59 11/19/16 14:23 Nateglinide (Starlix) 120 mg TIAC ORAL 11/17/16 16:30 12/17/16 16:29 11/18/16 17:18 Oxycodone HCl (Roxicodone) 5 mg Q4H PRN ORAL For Pain 4-6 11/17/16 14:30 11/24/16 14:29 11/19/16 14:23 Patient Own Medication (Patient's Own Med) 2 ea BID ORAL 11/17/16 18:00 12/17/16 17:59 11/19/16 09:05 Sevelamer Carbonate (Renvela) 2,400 mg THREE TIMES A DAY GT 11/18/16 11:33 12/17/16 17:59 11/19/16 12:01 Sevelamer Carbonate 1600 mg 1,600 mg TID ORAL 11/18/16 13:00 12/18/16 12:59 11/19/16 12:01 Sodium Chloride (Sodium Chloride 1000ml bag) 1,000 ml @ 500 mls/hr Q2H PRN IVLG sbp<90 during hd 11/19/16 11:20 12/19/16 11:19 Temazepam (Restoril) 15 mg BEDTIME ORAL 11/17/16 21:00 11/24/16 20:59 11/18/16 21:27 Tenofovir Disoproxil Fumarate (Viread) 300 mg Sa@1800 ORAL 11/17/16 21:00 12/17/16 20:59 11/17/16 21:43 Vancomycin HCl (Vanco rx to dose) 1 ea DAILY PRN MISC Per rx protocol 11/17/16 15:00 12/17/16 14:59 COSME DE OLIVEIRA Nov 19, 2016 17:19
--- NOTE | 2016-11-19 17:49 | Internal Med Progress Note ---
Subjective Physician Name Papa Lunsford Attending Physician Didier Thornton Current Medications Medications (Trade) Dose Ordered Sig/Zohaib Route PRN Reason Start Time Stop Time Status Last Admin Dose Admin Amlodipine Besylate (Norvasc) 5 mg DAILY ORAL 11/18/16 09:00 12/18/16 08:59 11/19/16 08:58 Cefepime HCl/ Dextrose (Maxipime/D5W) 55 ml @ 110 mls/hr Q24H IVPB 11/18/16 01:00 11/25/16 00:59 11/19/16 01:00 Chlorhexidine Gluconate (Ebony-Hex 2%) 1 applic QHS TOPIC 11/17/16 21:00 12/17/16 20:59 11/18/16 21:26 Cinacalcet (Sensipar) 30 mg DAILY ORAL 11/18/16 09:00 12/18/16 08:59 11/19/16 08:59 Clopidogrel Bisulfate (Plavix) 75 mg DAILY ORAL 11/18/16 09:00 12/18/16 08:59 11/19/16 08:58 Emtricitabine (Emtriva) 200 mg WeSa@1800 ORAL 11/17/16 18:00 12/17/16 17:59 11/17/16 17:30 Fluconazole (Diflucan) 200 mg DAILY ORAL 11/18/16 09:00 11/25/16 08:59 11/19/16 08:58 Hydromorphone HCl (Dilaudid) 0.5 mg Q4H PRN IVP Severe Pain (Pain Scale 7-10) 11/17/16 15:00 11/24/16 14:59 11/19/16 16:21 Lorazepam (Ativan) 0.5 mg QHS PRN ORAL Insomnia 11/17/16 21:00 11/24/16 20:59 Metronidazole (Flagyl) 500 mg Q8HR ORAL 11/17/16 22:00 11/24/16 21:59 11/19/16 14:23 Nateglinide (Starlix) 120 mg TIAC ORAL 11/17/16 16:30 12/17/16 16:29 11/18/16 17:18 Oxycodone HCl (Roxicodone) 5 mg Q4H PRN ORAL For Pain 4-6 11/17/16 14:30 11/24/16 14:29 11/19/16 14:23 Patient Own Medication (Patient's Own Med) 2 ea BID ORAL 11/17/16 18:00 12/17/16 17:59 11/19/16 09:05 Sevelamer Carbonate (Renvela) 2,400 mg THREE TIMES A DAY GT 11/18/16 11:33 12/17/16 17:59 11/19/16 12:01 Sevelamer Carbonate 1600 mg 1,600 mg TID ORAL 11/18/16 13:00 12/18/16 12:59 11/19/16 12:01 Sodium Chloride (Sodium Chloride 1000ml bag) 1,000 ml @ 500 mls/hr Q2H PRN IVLG sbp<90 during hd 11/19/16 11:20 12/19/16 11:19 Temazepam (Restoril) 15 mg BEDTIME ORAL 11/17/16 21:00 11/24/16 20:59 11/18/16 21:27 Tenofovir Disoproxil Fumarate (Viread) 300 mg Sa@1800 ORAL 11/17/16 21:00 12/17/16 20:59 11/17/16 21:43 Vancomycin HCl (Vanco rx to dose) 1 ea DAILY PRN MISC Per rx protocol 11/17/16 15:00 12/17/16 14:59 Allergies: Coded Allergies: HEPARIN (Verified Allergy, Severe, low platelets, 06/11/14) SULFA (SULFONAMIDE ANTIBIOTICS) (Verified Allergy, Severe, nephro toxic, ) ZOLPIDEM (Verified Allergy, Unknown, 05/03/16) MEROPENEM (Verified Adverse Reaction, Intermediate, 04/01/16) Nausea and vomiting Uncoded Allergies: pork products (Allergy, Severe, rashes, 06/11/14) Subjective in Telemetry, awake, alert, responsive, No CP, No SOB, feeling okay, NAD, K: 6.1 Objective Last Vital Signs Date Time Temp Pulse Resp B/P Pulse Ox O2 Delivery O2 Flow Rate FiO2 11/19/16 16:00 97.7 78 22 120/40 99 Room Air 11/17/16 17:00 2.0 11/17/16 07:30 28 Laboratory Tests Test 11/19/16 07:45 White Blood Count 3.8 K/UL (4.8-10.8) L Red Blood Count 4.27 M/UL (4.70-6.10) L Hemoglobin 11.7 G/DL (14.2-18.0) L Hematocrit 37.1 % (42.0-52.0) L Mean Corpuscular Volume 87 FL (80-99) Mean Corpuscular Hemoglobin 27.4 PG (27.0-31.0) Mean Corpuscular Hemoglobin Concent 31.5 G/DL (32.0-36.0) L Red Cell Distribution Width 20.8 % (11.6-14.8) H Platelet Count 226 K/UL (150-450) Mean Platelet Volume 7.3 FL (6.5-10.1) Neutrophils (%) (Auto) 41.6 % (45.0-75.0) L Lymphocytes (%) (Auto) 31.0 % (20.0-45.0) Monocytes (%) (Auto) 18.7 % (1.0-10.0) H Eosinophils (%) (Auto) 6.5 % (0.0-3.0) H Basophils (%) (Auto) 2.1 % (0.0-2.0) H Erythrocyte Sedimentation Rate 71 MM/HR (0-20) H Prothrombin Time 11.6 SEC (9.30-11.50) H Prothromb Time International Ratio 1.1 (0.9-1.1) Activated Partial Thromboplast Time 35 SEC (23-33) H Sodium Level 131 mEQ/L (135-145) L Potassium Level 6.1 mEQ/L (3.4-4.9) *H Chloride Level 91 mEQ/L (98-107) L Carbon Dioxide Level 19 mEQ/L (20-30) L Anion Gap 21 (5-15) H Blood Urea Nitrogen 93 mg/dL (7-23) H Creatinine 10.6 mg/dL (0.7-1.2) H Estimat Glomerular Filtration Rate 6.1 mL/min (>60) Glucose Level 56 mg/dL (74-106) L Calcium Level 7.3 mg/dL (8.6-10.2) L Intake and Output 11/18/16 11/19/16 19:00 07:00 Intake Total 360 ml 210 ml Balance 360 ml 210 ml Intake Oral 360 ml 100 ml IV Total 110 ml Objective General: No acute distress, awake and alert,. HEENT: NCAT, sclera anicteric, PERRL, EOMI. Neck: Supple, no significant jugular venous distention, Lungs: Good inspiratory effort, clear to auscultation bilaterally, no Wheeze or Rales. Chest Wall: Left side PermCath. Heart: Regular rate and rhythm, normal S1/S2, + OMAR @ LCW. Abdomen: soft, nontender, nondistended. Normoactive bowel sounds. / Rectal: Refused and deferred. Extremities: No Cyanosis , clubbing or edema. Right Foot dressing intact, Left foot TMA with dressing. Right UE Midline cath. Left UE AVF nonfunctional, Neuro: A&O x 3, Able to move all extremities Skin: warm, no rashes, Psych: Normal mood and affect Assessment/Plan Assessment/Plan 1. Obstructive Sleep apnea. 2. Sepsis with shock improving. 3. Right foot osteomyelitis. 4. Chronic hepatitis C positive. 5. OslerWeberRendu syndrome (hemorrhagic telangiectasia). 6. End-stage renal disease, on Hemodialysis. 7. Diabetic autonomic neuropathy. 8. History of hypertension. 9. Human immunodeficiency virus. 10. severe pulmonary hypertension 11. Right atrium mass R/O tumor, thrombus or possible vegetation. 12. Hyperkalemia. PLAN: Abx: Vanco / Cefepime/ Flagyl / Diflucan Monitor Labs and Cultures Dialysis F/U with Cardiology Recommendations for MIAN soon, discuss with , Srinivas @ [phone] Dialysis today. MRI of right foot: Acute osteomyelitis involving the posterior plantar aspect of the calcaneus adjacent to a large ulcer. 2D Echo: Mild left atrial enlargement by 2-D. Normal left ventricular systolic function and wall motion. Left ventricular ejection fraction estimated to be 55 %. Moderate left ventricular hypertrophy. No evidence of pericardial fat or effusion. Severe left atrial enlargement. Mild right atrial enlargement. Mild right ventricular enlargement. Moderate aortic valve sclerosis and or thickening with adequate cusp excursion. Cannot r/o vegetation. Mildly thickened mitral valve leaflets with normal excursion. Heavy mitral annulus and aortic root calcification. Normal pulmonic valve structure. Normal tricuspid valve structure. IVC dilated at 2.6 cm without physiologic collapse, estimated RAP is 15 mmHg. Large round echodense mass l noted in right atrium. Cannot exclude for tumor, thrombus or possible vegetation. A color flow and spectral Doppler study was performed and revealed: Severe aortic regurgitation. Moderate to severe mitral regurgitation. Mitral diastolic velocities suggest reduced left ventricular relaxation (Grade I ). Mild tricuspid regurgitation. Tricuspid systolic velocities suggests peak right ventricular systolic pressure of 63 mmHg, consistent with severe pulmonary hypertension. Trace pulmonic regurgitation present. Papa Lunsford MD Nov 19, 2016 17:49
[2016-11-19 20:00] VITALS: BP 135/42
[2016-11-19] MEDS: Dyna-Hex 2% Top Sol 8oz TOPIC SCH (22:24)
[2016-11-20] VITALS: BP 142/50
[2016-11-20] MEDS: Cefepime HCl 0.5 GM in D5W 55 ML IVPB SCH (01:19)
[2016-11-20] MEDS: Hydromorphone 0.5mg/0.5ml inj IVP PRN ×5 (01:21→19:50)
[2016-11-20 04:00] VITALS: BP 142/54
[2016-11-20] MEDS: metroNIDAZOLE 500mg tab ORAL SCH ×3 (06:32→21:25)
[2016-11-20] MEDS: oxyCODONE 5mg IR tab ORAL PRN ×4 (06:32→20:17)
[2016-11-20 08:00] VITALS: BP 107/61
--- NOTE | 2016-11-20 08:51 | Pulmonology Progress Note ---
Assessment/Plan Assessment/Plan 1. Sleep apnea. 2. Sepsis with shock. 3. Right foot osteomyelitis. 4. Chronic hepatitis. 5. OslerWeberRendu syndrome (hemorrhagic telangiectasia). 6. End-stage renal disease, on dialysis. 7. Diabetic autonomic neuropathy. 8. History of hypertension. 9. Human immunodeficiency virus. did not use BiPAP last night; says he was awake all night coloring observed sleeping this AM with Cheynne Ta type breathing (episodes of central apnea) RA mass, possible thrombus or SBE, MIAN pending cont BiPAP Subjective Constitutional: Denies: fever Respiratory: Reports: shortness of breath Cardiovascular: Denies: chest pain Allergies: Coded Allergies: HEPARIN (Verified Allergy, Severe, low platelets, 06/11/14) SULFA (SULFONAMIDE ANTIBIOTICS) (Verified Allergy, Severe, nephro toxic, ) ZOLPIDEM (Verified Allergy, Unknown, 05/03/16) MEROPENEM (Verified Adverse Reaction, Intermediate, 04/01/16) Nausea and vomiting Uncoded Allergies: pork products (Allergy, Severe, rashes, 06/11/14) Objective Last 24 Hour Vital Signs Date Time Temp Pulse Resp B/P Pulse Ox O2 Delivery O2 Flow Rate FiO2 11/20/16 08:00 98.1 79 18 107/61 97 Room Air 11/20/16 04:00 85 11/20/16 04:00 98.2 90 20 142/54 100 Room Air 11/20/16 00:00 92 11/20/16 00:00 98.2 92 22 142/50 98 Room Air 11/19/16 20:00 97.7 73 23 135/42 98 Nasal Cannula 3.0 11/19/16 20:00 78 11/19/16 19:33 Nasal Cannula 3.0 32 11/19/16 19:32 96 Nasal Cannula 3.0 32 11/19/16 19:23 Nasal Cannula 2.0 11/19/16 19:17 Nasal Cannula 2.0 11/19/16 16:51 97.9 11/19/16 16:00 100 11/19/16 16:00 97.7 78 22 120/40 99 Room Air 11/19/16 12:00 97.9 82 20 142/49 99 Room Air 11/19/16 12:00 95 11/19/16 11:20 Room Air 11/19/16 11:20 97 Room Air 11/19/16 08:58 74 126/42 Intake and Output 11/19/16 11/20/16 19:00 07:00 Intake Total 200 ml 55 ml Output Total 0 ml Balance 200 ml 55 ml Intake Oral 200 ml IV Total 55 ml Output Urine Total 0 ml General Appearance: no acute distress Respiratory/Chest: lungs clear Cardiovascular: normal rate Laboratory Tests 11/20/16 04:15: Random Vancomycin Level 17.8 Current Medications Medications (Trade) Dose Ordered Sig/Zohaib Route PRN Reason Start Time Stop Time Status Last Admin Dose Admin Amlodipine Besylate (Norvasc) 5 mg DAILY ORAL 11/18/16 09:00 12/18/16 08:59 11/19/16 08:58 Cefepime HCl/ Dextrose (Maxipime/D5W) 55 ml @ 110 mls/hr Q24H IVPB 11/18/16 01:00 11/25/16 00:59 11/20/16 01:19 Chlorhexidine Gluconate (Ebony-Hex 2%) 1 applic QHS TOPIC 11/17/16 21:00 12/17/16 20:59 11/19/16 22:24 Cinacalcet (Sensipar) 30 mg DAILY ORAL 11/18/16 09:00 12/18/16 08:59 11/19/16 08:59 Clopidogrel Bisulfate (Plavix) 75 mg DAILY ORAL 11/18/16 09:00 12/18/16 08:59 11/19/16 08:58 Emtricitabine (Emtriva) 200 mg WeSa@1800 ORAL 11/17/16 18:00 12/17/16 17:59 11/17/16 17:30 Fluconazole (Diflucan) 200 mg DAILY ORAL 11/18/16 09:00 11/25/16 08:59 11/19/16 08:58 Hydromorphone HCl (Dilaudid) 0.5 mg Q4H PRN IVP Severe Pain (Pain Scale 7-10) 11/17/16 15:00 11/24/16 14:59 11/20/16 05:26 Lorazepam (Ativan) 0.5 mg QHS PRN ORAL Insomnia 11/17/16 21:00 11/24/16 20:59 Metronidazole (Flagyl) 500 mg Q8HR ORAL 11/17/16 22:00 11/24/16 21:59 11/20/16 06:32 Nateglinide (Starlix) 120 mg TIAC ORAL 11/17/16 16:30 12/17/16 16:29 11/20/16 06:32 Oxycodone HCl (Roxicodone) 5 mg Q4H PRN ORAL For Pain 4-6 11/17/16 14:30 11/24/16 14:29 11/20/16 06:32 Patient Own Medication (Patient's Own Med) 2 ea BID ORAL 11/17/16 18:00 12/17/16 17:59 11/19/16 18:26 Sevelamer Carbonate (Renvela) 2,400 mg THREE TIMES A DAY GT 11/18/16 11:33 12/17/16 17:59 11/19/16 18:25 Sevelamer Carbonate 1600 mg 1,600 mg TID ORAL 11/18/16 13:00 12/18/16 12:59 11/19/16 18:25 Sodium Chloride (Sodium Chloride 1000ml bag) 1,000 ml @ 500 mls/hr Q2H PRN IVLG sbp<90 during hd 11/19/16 11:20 12/19/16 11:19 Temazepam (Restoril) 15 mg BEDTIME ORAL 11/17/16 21:00 11/24/16 20:59 11/19/16 22:24 Tenofovir Disoproxil Fumarate (Viread) 300 mg Sa@1800 ORAL 11/17/16 21:00 12/17/16 20:59 11/17/16 21:43 Vancomycin HCl (Vanco rx to dose) 1 ea DAILY PRN MISC Per rx protocol 11/17/16 15:00 12/17/16 14:59 COSME DE OLIVEIRA Nov 20, 2016 08:51
[2016-11-20] MEDS: Fluconazole 100mg tab ORAL SCH (10:12)
[2016-11-20] MEDS: Renvela 2400 mg pkt GT SCH ×3 (10:12→18:03)
[2016-11-20] MEDS: Sensipar 30mg Tab ORAL SCH (10:18)
[2016-11-20] MEDS: VIRACEPT ORAL SCH ×2 (10:18→18:04)
[2016-11-20] MEDS: Renvela 800mg Pkt ORAL SCH ×3 (10:21→18:03)
--- NOTE | 2016-11-20 11:44 | Nephrology Progress Note ---
Assessment/Plan Problem List: (1) Osteomyelitis (2) ESRD (end stage renal disease) (3) HTN (hypertension) (4) Hepatitis C (5) Hypoglycemia (6) Vascular disease (7) Valvular cardiomyopathy (8) Gtycm-Cgtic-Lslwh syndrome (9) Bradycardia (10) Hyperkalemia Plan Dialysis 11/19 via cath, -2500 ml, This should correct hyperkalemia . No fluid overload. His pain and infection could be monitored with amputations and earlier rehab--defer to pmd s/p bradycardia episode, bp nl, cardiology eval reviewed, has RA mass. With OWR high risk of hemorrhage if anticoagulated--d/w Dr. Tate Subjective Constitutional: Reports: weakness HEENT: Reports: no symptoms Genitourinary: Reports: no symptoms Neurologic/Psychiatric: Reports: no symptoms Subjective foot pain Objective Objective Last 24 Hour Vital Signs Date Time Temp Pulse Resp B/P Pulse Ox O2 Delivery O2 Flow Rate FiO2 11/20/16 10:17 80 107/61 11/20/16 08:00 98.1 79 18 107/61 97 Room Air 11/20/16 08:00 78 11/20/16 04:00 85 11/20/16 04:00 98.2 90 20 142/54 100 Room Air 11/20/16 00:00 92 11/20/16 00:00 98.2 92 22 142/50 98 Room Air 11/19/16 20:00 97.7 73 23 135/42 98 Nasal Cannula 3.0 11/19/16 20:00 78 11/19/16 19:33 Nasal Cannula 3.0 32 11/19/16 19:32 96 Nasal Cannula 3.0 32 11/19/16 19:23 Nasal Cannula 2.0 11/19/16 19:17 Nasal Cannula 2.0 11/19/16 16:51 97.9 11/19/16 16:00 100 11/19/16 16:00 97.7 78 22 120/40 99 Room Air 11/19/16 12:00 97.9 82 20 142/49 99 Room Air 11/19/16 12:00 95 Intake and Output 11/19/16 11/20/16 19:00 07:00 Intake Total 200 ml 55 ml Output Total 0 ml Balance 200 ml 55 ml Intake Oral 200 ml IV Total 55 ml Output Urine Total 0 ml Laboratory Tests 11/20/16 04:15: Random Vancomycin Level 17.8 Height (Feet): 6 Height (Inches): 8.00 Weight (Pounds): 179 General Appearance: no apparent distress, alert EENT: normal ENT inspection Neck: normal alignment Cardiovascular: normal rate, regular rhythm Respiratory/Chest: lungs clear Abdomen: non tender, soft Extremities: other - no edema, dressings on feet 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
[2016-11-20 12:00] VITALS: BP 135/42
--- NOTE | 2016-11-20 15:08 | Internal Med Progress Note ---
Subjective Date of Service: Nov 20, 2016 Physician Name Didier Jimenez Attending Physician Didier Jimenez Current Medications Medications (Trade) Dose Ordered Sig/Zohaib Route PRN Reason Start Time Stop Time Status Last Admin Dose Admin Amlodipine Besylate (Norvasc) 5 mg DAILY ORAL 11/18/16 09:00 12/18/16 08:59 11/20/16 10:17 Cefepime HCl/ Dextrose (Maxipime/D5W) 55 ml @ 110 mls/hr Q24H IVPB 11/18/16 01:00 11/25/16 00:59 11/20/16 01:19 Chlorhexidine Gluconate (Ebony-Hex 2%) 1 applic QHS TOPIC 11/17/16 21:00 12/17/16 20:59 11/19/16 22:24 Cinacalcet (Sensipar) 30 mg DAILY ORAL 11/18/16 09:00 12/18/16 08:59 11/20/16 10:18 Clopidogrel Bisulfate (Plavix) 75 mg DAILY ORAL 11/18/16 09:00 12/18/16 08:59 11/20/16 10:27 Emtricitabine (Emtriva) 200 mg WeSa@1800 ORAL 11/17/16 18:00 12/17/16 17:59 11/17/16 17:30 Fluconazole (Diflucan) 200 mg DAILY ORAL 11/18/16 09:00 11/25/16 08:59 11/20/16 10:12 Hydromorphone HCl (Dilaudid) 0.5 mg Q4H PRN IVP Severe Pain (Pain Scale 7-10) 11/17/16 15:00 11/24/16 14:59 11/20/16 10:29 Lorazepam (Ativan) 0.5 mg QHS PRN ORAL Insomnia 11/17/16 21:00 11/24/16 20:59 Metronidazole (Flagyl) 500 mg Q8HR ORAL 11/17/16 22:00 11/24/16 21:59 11/20/16 06:32 Nateglinide (Starlix) 120 mg TIAC ORAL 11/17/16 16:30 12/17/16 16:29 11/20/16 11:30 Oxycodone HCl (Roxicodone) 5 mg Q4H PRN ORAL For Pain 4-6 11/17/16 14:30 11/24/16 14:29 11/20/16 11:32 Patient Own Medication (Patient's Own Med) 2 ea BID ORAL 11/17/16 18:00 12/17/16 17:59 11/20/16 10:18 Sevelamer Carbonate 1600 mg 1,600 mg TID ORAL 11/18/16 13:00 12/18/16 12:59 11/20/16 10:21 Sevelamer Carbonate 2400 mg 2,400 mg THREE TIMES A DAY GT 11/18/16 11:33 12/17/16 17:59 11/20/16 10:12 Sodium Chloride (Sodium Chloride 1000ml bag) 1,000 ml @ 500 mls/hr Q2H PRN IVLG sbp<90 during hd 11/19/16 11:20 12/19/16 11:19 Sodium Chloride (Sodium Chloride 1000ml bag) 1,000 ml @ 500 mls/hr Q2H PRN IVLG sbp<90 during hd 11/21/16 12:30 12/21/16 12:29 Temazepam (Restoril) 15 mg BEDTIME ORAL 11/17/16 21:00 11/24/16 20:59 11/19/16 22:24 Tenofovir Disoproxil Fumarate (Viread) 300 mg Sa@1800 ORAL 11/17/16 21:00 12/17/16 20:59 11/17/16 21:43 Vancomycin HCl (Vanco rx to dose) 1 ea DAILY PRN MISC Per rx protocol 11/17/16 15:00 12/17/16 14:59 Allergies: Coded Allergies: HEPARIN (Verified Allergy, Severe, low platelets, 06/11/14) SULFA (SULFONAMIDE ANTIBIOTICS) (Verified Allergy, Severe, nephro toxic, ) ZOLPIDEM (Verified Allergy, Unknown, 05/03/16) MEROPENEM (Verified Adverse Reaction, Intermediate, 04/01/16) Nausea and vomiting Uncoded Allergies: pork products (Allergy, Severe, rashes, 06/11/14) ROS Limited/Unobtainable: No Constitutional: Reports: no symptoms HEENT: Reports: no symptoms Cardiovascular: Reports: no symptoms Respiratory: Reports: no symptoms Gastrointestinal/Abdominal: Reports: no symptoms Genitourinary: Reports: no symptoms Neurologic/Psychiatric: Reports: no symptoms Subjective 61 YO M admitted with shortness of breath, hypoglycemia and right diabetic foot ulcer. Now gangrene right foot with osteomyelitis. Objective Last Vital Signs Date Time Temp Pulse Resp B/P Pulse Ox O2 Delivery O2 Flow Rate FiO2 11/20/16 12:00 98.1 80 18 135/42 98 Room Air 11/19/16 20:00 3.0 11/19/16 19:33 32 Laboratory Tests Test 11/20/16 04:15 Random Vancomycin Level 17.8 ug/mL Intake and Output 11/19/16 11/20/16 19:00 07:00 Intake Total 200 ml 55 ml Output Total 0 ml Balance 200 ml 55 ml Intake Oral 200 ml IV Total 55 ml Output Urine Total 0 ml Objective General Appearance: WD/WN, no apparent distress, alert EENT: PERRL/EOMI, normal ENT inspection, TMs normal Neck: non-tender, normal alignment, supple Cardiovascular: normal peripheral pulses, sinus bradycardia, regular rhythm, no gallop/murmur, no JVD Respiratory/Chest: chest wall non-tender, lungs clear, normal breath sounds, no respiratory distress, no accessory muscle use Abdomen: normal bowel sounds, non tender, soft, no organomegaly, no mass Extremities: right foot dressing clean and dry; normal range of motion Neurologic: disassembler product II-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 See podiatry consult note. cont vanco, cefepime and flagyl per ID (6) HIV disease Assessment & Plan: Continue HAART per ID (7) HTN (hypertension) Assessment & Plan: Continue metoprolol (8) Diabetes Assessment & Plan: Hypoglycemic on arrival. (9) ESRD (end stage renal disease) Assessment & Plan: Hemodialysis 11/19/16. See nephrology note-Dr Bianchi (10) Bradycardia Assessment & Plan: See cardiology consult. D/C metoprolol and clonidine. (11) Osteomyelitis of ankle or foot, right, acute Assessment & Plan: See podiatry note. (12) Gangrene of right foot (13) Right atrial mass Assessment & Plan: See cardiology note. R/O vegetations. (14) Ndajk-Owniw-Amdjl syndrome (15) Peripheral vascular disease Assessment & Plan: See vascular surgery note. Status: unchanged DIDIER JIMENEZ Nov 20, 2016 15:08
[2016-11-20 16:00] VITALS: BP 116/36
[2016-11-20] MEDS ORDERED: Vancomycin 1gm/D5W 275ml IVPB ONE ×2 (17:00)
--- NOTE | 2016-11-20 17:01 | Cardiac Electrophysiology PN ---
Assessment/Plan Assessment/Plan 1. Bradycardia with sinus arrest and junctional rhythm, heart rate in the 40s as well as left anterior fascicular block. Ruled out myocardial infarction . Tapered off dopamine. Resolved. 2. Hypertension, on Norvasc 5 mg daily. 3. End-stage renal disease, on hemodialysis. 4. History of peripheral vascular disease, status post metatarsal amputation, on antibiotic with right foot ulcer. 5. HIV 6. Hepatitis C. 7. Larger right atrial echogenic material/mass. Rescheduled MIAN by Dr Reed tomorrow. 8. 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 10. Viability study 10/31/16 showed 10% nonviable myocardium. 11. MIAN 07/03/16 at [facility] severe MR and AI but reported Right atrium was normal. NOE RN Subjective Subjective No events overnight. Scheduled for MIAN by Dr Reed tomorrow Objective Last 24 Hour Vital Signs Date Time Temp Pulse Resp B/P Pulse Ox O2 Delivery O2 Flow Rate FiO2 11/20/16 16:00 97.9 70 18 116/36 96 Room Air 11/20/16 12:00 75 11/20/16 12:00 98.1 80 18 135/42 98 Room Air 11/20/16 10:17 80 107/61 11/20/16 08:00 98.1 79 18 107/61 97 Room Air 11/20/16 08:00 78 11/20/16 04:00 85 11/20/16 04:00 98.2 90 20 142/54 100 Room Air 11/20/16 00:00 92 11/20/16 00:00 98.2 92 22 142/50 98 Room Air 11/19/16 20:00 97.7 73 23 135/42 98 Nasal Cannula 3.0 11/19/16 20:00 78 11/19/16 19:33 Nasal Cannula 3.0 32 11/19/16 19:32 96 Nasal Cannula 3.0 32 11/19/16 19:23 Nasal Cannula 2.0 11/19/16 19:17 Nasal Cannula 2.0 Intake and Output 11/19/16 11/20/16 19:00 07:00 Intake Total 200 ml 55 ml Output Total 0 ml Balance 200 ml 55 ml Intake Oral 200 ml IV Total 55 ml Output Urine Total 0 ml Laboratory Tests Test 11/20/16 04:15 Random Vancomycin Level 17.8 ug/mL Objective HEAD AND NECK: Shows no JVD. LUNGS: Decreased breath sounds.Dialysis Via left subclavian permcath. CARDIOVASCULAR: Shows regular S1 and S2. ABDOMEN: Soft. EXTREMITIES: No pitting edema was there in the right foot ulcer as well as left metatarsal amputation. CLIFTON KEARNEY Nov 20, 2016 17:01
[2016-11-20 20:20] VITALS: BP 126/45
--- NOTE | 2016-11-20 21:07 | Cardiology Progress Note ---
Assessment/Plan Assessment/Plan The patient is seen and examined, full consult note is dictated. Objective Last 24 Hour Vital Signs Date Time Temp Pulse Resp B/P Pulse Ox O2 Delivery O2 Flow Rate FiO2 11/20/16 20:20 98.1 79 20 126/45 100 Room Air 11/20/16 19:54 Room Air 11/20/16 19:54 96 Room Air 11/20/16 16:00 97.9 70 18 116/36 96 Room Air 11/20/16 12:00 75 11/20/16 12:00 98.1 80 18 135/42 98 Room Air 11/20/16 10:17 80 107/61 11/20/16 08:00 98.1 79 18 107/61 97 Room Air 11/20/16 08:00 78 11/20/16 04:00 85 11/20/16 04:00 98.2 90 20 142/54 100 Room Air 11/20/16 00:00 92 11/20/16 00:00 98.2 92 22 142/50 98 Room Air Intake and Output 11/19/16 11/20/16 19:00 07:00 Intake Total 200 ml 55 ml Output Total 0 ml Balance 200 ml 55 ml Intake Oral 200 ml IV Total 55 ml Output Urine Total 0 ml Laboratory Tests Test 11/20/16 04:15 Random Vancomycin Level 17.8 ug/mL CLIFTON ISLAS Nov 20, 2016 21:07
[2016-11-20] MEDS: Dyna-Hex 2% Top Sol 8oz TOPIC SCH (21:26)
[2016-11-20 22:15] LABS: CALCIUM 6.9 mg/dL (8.6-10.2); CREATININE 10.2 mg/dL (0.7-1.2); GLOMERULAR FILTRATION RATE 6.3 mL/min (>60)
[2016-11-20 22:17] LABS: POTASSIUM 6.8 mEQ/L (3.4-4.9)
[2016-11-20] MEDS ORDERED: Sodium Polystyrene Sulfonate 15gm Powder ORAL ONE (22:45)
[2016-11-21 00:10] VITALS: BP 117/45
[2016-11-21] MEDS: Hydromorphone 0.5mg/0.5ml inj IVP PRN ×5 (00:46→22:54)
[2016-11-21] MEDS: Cefepime HCl 0.5 GM in D5W 55 ML IVPB SCH (00:51)
[2016-11-21] MEDS: oxyCODONE 5mg IR tab ORAL PRN ×4 (01:38→20:04)
[2016-11-21 04:00] VITALS: BP 140/43
--- NOTE | 2016-11-21 06:02 | Consultation ---
DATE OF CONSULTATION: 11/20/2016 INVASIVE CARDIOLOGY CONSULTATION CONSULTING PHYSICIAN: Saturnino Reed M.D. REFERRING PHYSICIAN: Saturnino Tate M.D. ADDITIONAL REFERRING PHYSICIAN: Didier Thornton M.D. REASON FOR CONSULTATION: Evaluation for transesophageal echocardiography. HISTORY OF PRESENT ILLNESS: The patient is a very unfortunate 61-year-old gentleman known to me, who initially presents to this hospital on 11/11/2016 with missed dialysis and right foot ulcer. The patient during the course of hospitalization had 2D echocardiography, which was suspicious for right atrial mass; therefore, Dr. Tate, apartment leasing consultant made a request for transesophageal echocardiography to delineate the right atrial mass. The patient's cardiac history is significant for severe aortic regurgitation, which was believed due to aortic valve cleft versus perforation possibly due to prior aortic valve vegetation. 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 The patient had a normal LV systolic function with LVEF approximately 60% to 65%. The patient had transesophageal echocardiography in May 2014 in this facility, which revealed the above findings in regards with aortic regurgitation as well as presence of mild aortic stenosis and sclerosis. He also has significant history of peripheral arterial disease with gangrene and amputations. He has a history of end-stage renal disease, diabetes mellitus, and hypertension. PAST MEDICAL HISTORY: As mentioned above includin. Transient ischemic attack. 2. AV malformation. 3. End-stage renal disease. 4. Hypertension. 5. Severe aortic regurgitation. 6. Diabetes mellitus. 7. Human immunodeficiency virus disease. 8. Hepatitis C virus infection. 9. Peripheral vascular disease status post amputation. 10. History of cataracts. 11. History of left foot ulcer. PAST SURGICAL HISTORY: 1. Left foot partial amputation. 2. Possible surgeries of the foot beginning 2004. 3. History of atrial septal defect patch. 4. History of left AV graft placement for dialysis. 5. Right toe amputation April 2016. MEDICATIONS: 1. Acyclovir 400 mg tablet daily. 2. Ammonium acetate 365 g twice daily. 3. Calcitriol 0.5 mcg p.o. daily. 4. Cinacalcet 30 mg p.o. daily. 5. Clonidine 0.1 mg q.8 hours p.r.n. 6. Plavix 75 mg p.o. daily. 7. Emtriva 200 mg Wednesdays and Saturdays. 8. Epogen 10,000 units subcutaneous three times weekly. 9. Vitamin D 50,000 units twice monthly. 10. Folic acid and vitamin B complex 1 mg daily. 11. Atrovent two puffs q.6 hours p.r.n. 12. Ativan 0.5 mg q.6 hours p.r.n. 13. Toprol 25 mg p.o. daily. 14. Ketorolac 120 mg three times daily. 15. Aricept two tablets p.o. daily. 16. Oxycodone 5 mg q.4 hours p.r.n. 17. Zosyn intravenous antibiotic day #30. 18. Restoril 15 mg p.o. at bedtime. 19. Vancomycin day # IV piggyback. ALLERGIES: 1. Bactrim. 2. Heparin. 3. Ambien. 4. Meropenem. 5. Pork. 6. Prednisone. 7. Anesthetic agents. SOCIAL HISTORY: . Denies any tobacco, alcohol, or illicit drug use. REVIEW OF SYSTEMS: HEENT: Denies any headache, diplopia, or blurred vision. Constitutional: He complains of generalized weakness, but no fever, chills, or night sweats. Cardiovascular: Denies any chest pain. Slight shortness of breath with activities although mostly nonambulatory. Complaining of leg edema. Gastrointestinal: Denies any nausea, vomiting, diarrhea, constipation, abdominal pain, or GI bleed. Genitourinary: Denies any hematuria, dysuria, or incontinence. Neurology: Denies any motor dysfunction, sensory deficit, or altered speech. Musculoskeletal: Severe peripheral vascular disease, amputation, and foot ulcer. PHYSICAL EXAMINATION: VITAL SIGNS: Blood pressure is 111/40, pulse of 61, respirations 19, and temperature 97.5 degrees Fahrenheit. GENERAL: This is a very pleasant gentleman in no apparent respiratory distress. Alert and oriented x4. HEENT: Atraumatic and normocephalic. Anicteric. Pupils are equal, round, and reactive to light and accommodation. Extraocular muscles intact. NECK: JVP is less than 5 cm. No carotid bruit. LUNGS: Clear to auscultation bilaterally. CARDIOVASCULAR: Normal S1 and S2. There is a 3/6 holosystolic murmur at the apex. ABDOMEN: Soft, nontender, and nondistended. No hepatosplenomegaly. Positive bowel sounds. EXTREMITIES: There is 1+ bilateral pedal edema. LABORATORY AND DIAGNOSTIC FINDINGS: WBC 3.8, hemoglobin 11.7, hematocrit 37.1, and platelet count 226,000. ESR is 71. Sodium is 131, potassium 6.1, chloride 91, bicarbonate 19, BUN 93, creatinine 10.6, and glucose is 56. Calcium is 7.3. INR is 1.1. ECG sinus rhythm at a rate of 62 with PACs. There is a prolongation of QT interval. There is evidence of left ventricular hypertrophy. A 2D echocardiography was reviewed, which revealed normal LV systolic function with LVEF approximately 55%. There is moderate LVH, severe left atrial enlargement, mild right atrial enlargement, and mild right ventricular enlargement. There is presence of a calcified patch in the intraatrial septal wall position and dilated inferior vena cava 2.6 cm with lack of physiological collapse translating to atrial pressure of about 15 mmHg. The right atrial mass is most likely the side lobe artifact and presence of severe aortic vegetation with presence of acute features i.e pressure half-time less than 400 milliseconds and there is also presence of severe eccentric mitral regurgitation with associated diastolic dominant pulmonary venous inflow suggestive of increased intracardiac filling pressures. Pulmonary artery pressure of 63 mmHg consistent with severe pulmonary hypertension. ASSESSMENT AND PLAN: The patient is a very unfortunate 61-year-old gentleman, seen in invasive Cardiology consultation for assessment and evaluation for a transthoracic echocardiography. The patient was discussed the risks, benefits, and alternatives of the procedures in detail. I personally discussed with Ms. Sheila Leone regarding transthoracic echocardiography in ruling out the right atrial mass. In addition evaluation of severe mitral and aortic regurgitation and its hemodynamic significance. Ms. Leone has agreed for procedure. The patient's questions and concerns were answered and he is also agreeable to the procedure. Ms. Leone requires a discussion with anesthesiology prior to test in view of history of allergies to some anesthetic agent in the past. The patient is scheduled for transesophageal echocardiography at 7 a.m. on 11/21/2016. I would like to thank, Dr. Tate and Dr. Thornton, for allowing me to participate in the care of this patient. Saturnino Reed M.D. DR: NASIM JOB#: [id number] CC:
--- NOTE | 2016-11-21 06:03 | Anethesia Preoperative Eval ---
Anesthesia Pre-op PMH/ROS General Date of Evaluation: Nov 21, 2016 Time of Evaluation: 06:01 Anesthesiologist: leonora ASA Score: ASA 3 Mallampati Score Class I : Soft palate, uvula, fauces, pillars visible Class II: Soft palate, uvula, fauces visible Class III: Soft palate, base of uvula visible Class IV: Only hard plate visible Mallampati Classification: Class II Surgeon: dheeraj Surgical Procedure: shakira Anesthesia History: difficult airway, other - reports patient has hx of Family History: no anesthesia problems Allergies: Coded Allergies: HEPARIN (Verified Allergy, Severe, low platelets, 06/11/14) SULFA (SULFONAMIDE ANTIBIOTICS) (Verified Allergy, Severe, nephro toxic, ) ZOLPIDEM (Verified Allergy, Unknown, 05/03/16) MEROPENEM (Verified Adverse Reaction, Intermediate, 04/01/16) Nausea and vomiting Uncoded Allergies: pork products (Allergy, Severe, rashes, 06/11/14) Medications: see eMAR Past Medical History Cardiovascular: Reports: CAD, HTN, valve dz Pulmonary: Reports: COPD Gastrointestinal/Genitourinary: Reports: ESRD Neurologic/Psychiatric: Reports: TIA Endocrine: Reports: DM HEENT: Reports: cataract (L) Hematology/Immune: Reports: anemia Musculoskeletal/Integumentary: Reports: other - osteomyelitis Anesthesia Pre-op Phys. Exam Physician Exam Last Vital Signs Date Time Temp Pulse Resp B/P Pulse Ox O2 Delivery O2 Flow Rate FiO2 11/21/16 05:28 75 21 100 Full Face 28 11/21/16 04:00 97.8 140/43 11/19/16 20:00 3.0 Constitutional: NAD Neurologic: CN 2-12 intact Cardiovascular: RRR Respiratory: other - cpap rate 14 [id number] 0.28 Gastrointestinal: S/NT/ND Airway Exam Mallampati Score: Class II MO: limited Neck: decreased rom neck TMD: 2fb ROM: limited Teeth: missing Anesthesia Pre-op A/P Labs Chemistry Test 11/20/16 21:20 Sodium Level 126 mEQ/L (135-145) L Potassium Level 6.8 mEQ/L (3.4-4.9) *H Chloride Level 87 mEQ/L (98-107) L Carbon Dioxide Level 19 mEQ/L (20-30) L Anion Gap 20 (5-15) H Blood Urea Nitrogen 96 mg/dL (7-23) H Creatinine 10.2 mg/dL (0.7-1.2) H Estimat Glomerular Filtration Rate 6.3 mL/min (>60) Glucose Level 288 mg/dL (74-106) H Calcium Level 6.9 mg/dL (8.6-10.2) L Risk Assessment & Plan Assessment: asa3 Plan: mac Status Change Before Surgery: No Pre-Antibiotics Drug: MAGDALENO Hsieh Nov 21, 2016 06:03
[2016-11-21] MEDS: metroNIDAZOLE 500mg tab ORAL SCH ×3 (06:15→21:06)
[2016-11-21 07:29] LABS: MEAN CORPUSCULAR HEMOGLOBIN 26.4 PG (27.0-31.0); MEAN CORPUSCULAR HGB CONC 30.5 G/DL (32.0-36.0); MEAN CORPUSCULAR VOLUME 87 FL (80-99); MEAN PLATELET VOLUME 7.8 FL (6.5-10.1); PLATELET COUNT 224 K/UL (150-450); RED BLOOD COUNT 4.24 M/UL (4.70-6.10); RED CELL DISTRIBUTION WIDTH 20.4 % (11.6-14.8); WHITE BLOOD COUNT 4.2 K/UL (4.8-10.8)
--- NOTE | 2016-11-21 07:34 | Cardiology Progress Note ---
Assessment/Plan Assessment/Plan MIAN was postponed pending repeat of K level as the last chem 7 from 11/20 had revealed K of 6.8. The patient requires urgent hemodialysis. Objective Last 24 Hour Vital Signs Date Time Temp Pulse Resp B/P Pulse Ox O2 Delivery O2 Flow Rate FiO2 11/21/16 05:28 75 21 100 Full Face 28 11/21/16 04:00 97.8 84 20 140/43 100 Room Air 11/21/16 04:00 81 11/21/16 03:50 72 23 100 Full Face 28 11/21/16 01:44 78 16 100 Full Face 28 11/21/16 00:10 98.1 76 20 117/45 100 Room Air 11/21/16 00:00 77 11/20/16 20:20 98.1 79 20 126/45 100 Room Air 11/20/16 20:00 81 11/20/16 19:54 Room Air 11/20/16 19:54 96 Room Air 11/20/16 16:00 97.9 70 18 116/36 96 Room Air 11/20/16 12:00 75 11/20/16 12:00 98.1 80 18 135/42 98 Room Air 11/20/16 10:17 80 107/61 11/20/16 08:00 98.1 79 18 107/61 97 Room Air 11/20/16 08:00 78 Intake and Output 11/20/16 11/21/16 19:00 07:00 Intake Total 720 ml 295 ml Balance 720 ml 295 ml Intake Oral 720 ml 240 ml IV Total 55 ml # Voids 1 # Bowel Movements 1 Laboratory Tests Test 11/20/16 21:20 11/21/16 06:40 Sodium Level 126 mEQ/L (135-145) L Pending Potassium Level 6.8 mEQ/L (3.4-4.9) *H Pending Chloride Level 87 mEQ/L (98-107) L Pending Carbon Dioxide Level 19 mEQ/L (20-30) L Pending Anion Gap 20 (5-15) H Blood Urea Nitrogen 96 mg/dL (7-23) H Pending Creatinine 10.2 mg/dL (0.7-1.2) H Pending Estimat Glomerular Filtration Rate 6.3 mL/min (>60) Pending Glucose Level 288 mg/dL (74-106) H Pending Calcium Level 6.9 mg/dL (8.6-10.2) L Pending White Blood Count Pending Red Blood Count Pending Hemoglobin Pending Hematocrit Pending Mean Corpuscular Volume Pending Mean Corpuscular Hemoglobin Pending Mean Corpuscular Hemoglobin Concent Pending Red Cell Distribution Width Pending Platelet Count Pending Mean Platelet Volume Pending Neutrophils (%) (Auto) Pending Lymphocytes (%) (Auto) Pending Monocytes (%) (Auto) Pending Eosinophils (%) (Auto) Pending Basophils (%) (Auto) Pending CLIFTON ISLAS Nov 21, 2016 07:34
[2016-11-21 07:36] LABS: CALCIUM 7.7 mg/dL (8.6-10.2); CREATININE 11.3 mg/dL (0.7-1.2); GLOMERULAR FILTRATION RATE 5.6 mL/min (>60)
[2016-11-21 07:50] LABS: POTASSIUM 6.5 mEQ/L (3.4-4.9)
[2016-11-21 08:00] VITALS: BP 136/52
[2016-11-21 08:03] LABS: EOSINOPHILS % (MANUAL) 5 % (0-3); LYMPHOCYTES % (MANUAL) 57 % (20-45); NEUTROPHILS % (MANUAL) 28 % (45-75); TOTAL CELLS COUNTED 100
[2016-11-21 08:04] LABS: ANISOCYTOSIS 2+; BAND NEUTROPHILS % (MANUAL) 0 % (0-8); BASOPHILS % (MANUAL) 0 % (0-2); HYPOCHROMASIA 2+; PLATELET ESTIMATE ADEQUATE; PLATELET MORPHOLOGY NORMAL
[2016-11-21] MEDS: Renvela 2400 mg pkt GT SCH ×3 (08:56→18:32)
[2016-11-21] MEDS: Sensipar 30mg Tab ORAL SCH (08:56)
[2016-11-21] MEDS: VIRACEPT ORAL SCH ×2 (08:56→18:32)
[2016-11-21] MEDS: Renvela 800mg Pkt ORAL SCH ×3 (08:56→18:32)
[2016-11-21] MEDS: Fluconazole 100mg tab ORAL SCH (08:57)
--- NOTE | 2016-11-21 09:20 | Nephrology Progress Note ---
Assessment/Plan Problem List: (1) Osteomyelitis (2) ESRD (end stage renal disease) (3) HTN (hypertension) (4) Hepatitis C (5) Hypoglycemia (6) Vascular disease (7) Valvular cardiomyopathy (8) Yitku-Ddfbr-Vfxyl syndrome (9) Bradycardia (10) Hyperkalemia Plan Dialysis 11/19 via cath, -2500 ml, This should correct hyperkalemia but K and bun again high--may have recirculation from catheter. Patient and refuse to use av fistula yet. HD today and reassess lab. . No fluid overload. His pain and infection could be monitored with amputations and earlier rehab--defer to pmd s/p bradycardia episode, bp nl, cardiology eval reviewed, has RA mass. With OWR high risk of hemorrhage if anticoagulated--d/w Dr. Tate Subjective Constitutional: Reports: weakness HEENT: Reports: no symptoms Genitourinary: Reports: no symptoms Neurologic/Psychiatric: Reports: no symptoms Subjective foot pain Objective Objective Last 24 Hour Vital Signs Date Time Temp Pulse Resp B/P Pulse Ox O2 Delivery O2 Flow Rate FiO2 11/21/16 08:57 85 136/52 11/21/16 08:32 85 16 98 2.0 11/21/16 08:00 97.7 84 22 136/52 100 Bi-pap 11/21/16 06:44 Nasal Cannula 2.0 11/21/16 06:44 98 Nasal Cannula 2.0 11/21/16 05:28 75 21 100 Full Face 11/21/16 04:00 97.8 84 20 140/43 100 Room Air 11/21/16 04:00 81 11/21/16 04:00 28 11/21/16 03:50 72 23 100 Full Face 28 11/21/16 01:44 78 16 100 Full Face 28 11/21/16 00:10 98.1 76 20 117/45 100 Room Air 11/21/16 00:00 77 11/20/16 20:20 98.1 79 20 126/45 100 Room Air 11/20/16 20:00 81 11/20/16 19:54 Room Air 11/20/16 19:54 96 Room Air 11/20/16 16:00 97.9 70 18 116/36 96 Room Air 11/20/16 12:00 75 11/20/16 12:00 98.1 80 18 135/42 98 Room Air 11/20/16 10:17 80 107/61 Intake and Output 11/20/16 11/21/16 19:00 07:00 Intake Total 720 ml 295 ml Balance 720 ml 295 ml Intake Oral 720 ml 240 ml IV Total 55 ml # Voids 1 # Bowel Movements 1 Laboratory Tests 11/20/16 21:20: Sodium Level 126L, Potassium Level 6.8*H, Chloride Level 87L, Carbon Dioxide Level 19L, Anion Gap 20H, Blood Urea Nitrogen 96H, Creatinine 10.2H, Estimat Glomerular Filtration Rate 6.3, Glucose Level 288H, Calcium Level 6.9L 11/21/16 06:40: Sodium Level 128L, Potassium Level 6.5*H, Chloride Level 88L, Carbon Dioxide Level 18L, Anion Gap 22H, Blood Urea Nitrogen 106H, Creatinine 11.3H, Estimat Glomerular Filtration Rate 5.6, Glucose Level 138#H, Calcium Level 7.7L, White Blood Count 4.2L, Red Blood Count 4.24L, Hemoglobin 11.2L, Hematocrit 36.7L, Mean Corpuscular Volume 87, Mean Corpuscular Hemoglobin 26.4L, Mean Corpuscular Hemoglobin Concent 30.5L, Red Cell Distribution Width 20.4H, Platelet Count 224 , Mean Platelet Volume 7.8, Neutrophils (%) (Auto) , Lymphocytes (%) (Auto) , Monocytes (%) (Auto) , Eosinophils (%) (Auto) , Basophils (%) (Auto) , Differential Total Cells Counted 100, Neutrophils % (Manual) 28L, Lymphocytes % (Manual) 57H, Monocytes % (Manual) 10, Eosinophils % (Manual) 5H, Basophils % ( Manual) 0, Band Neutrophils 0, Platelet Estimate Adequate, Platelet Morphology Normal, Hypochromasia 2+, Anisocytosis 2+ Height (Feet): 6 Height (Inches): 6.00 Weight (Pounds): 182 General Appearance: no apparent distress, alert EENT: normal ENT inspection Neck: normal alignment Cardiovascular: regular rhythm Respiratory/Chest: normal breath sounds, no respiratory distress Abdomen: non tender, soft Extremities: other - no edema 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
--- NOTE | 2016-11-21 09:21 | Pulmonology Progress Note ---
Assessment/Plan Assessment/Plan 1. Sleep apnea. 2. Sepsis with shock. 3. Right foot osteomyelitis. 4. Chronic hepatitis. 5. OslerWeberRendu syndrome (hemorrhagic telangiectasia). 6. End-stage renal disease, on dialysis. 7. Diabetic autonomic neuropathy. 8. History of hypertension. 9. Human immunodeficiency virus. did use BiPAP last night MIAN delayed due to high K Disc w renal cont BiPAP Subjective Constitutional: Denies: anorexia, chills, drenching sweats, fatigue, fever, no symptoms, other Allergies: Coded Allergies: HEPARIN (Verified Allergy, Severe, low platelets, 06/11/14) SULFA (SULFONAMIDE ANTIBIOTICS) (Verified Allergy, Severe, nephro toxic, ) ZOLPIDEM (Verified Allergy, Unknown, 05/03/16) MEROPENEM (Verified Adverse Reaction, Intermediate, 04/01/16) Nausea and vomiting Uncoded Allergies: pork products (Allergy, Severe, rashes, 06/11/14) Objective Last 24 Hour Vital Signs Date Time Temp Pulse Resp B/P Pulse Ox O2 Delivery O2 Flow Rate FiO2 11/21/16 08:57 85 136/52 11/21/16 08:32 85 16 98 2.0 11/21/16 08:00 97.7 84 22 136/52 100 Bi-pap 11/21/16 06:44 Nasal Cannula 2.0 11/21/16 06:44 98 Nasal Cannula 2.0 11/21/16 05:28 75 21 100 Full Face 11/21/16 04:00 97.8 84 20 140/43 100 Room Air 11/21/16 04:00 81 11/21/16 04:00 28 11/21/16 03:50 72 23 100 Full Face 28 11/21/16 01:44 78 16 100 Full Face 11/21/16 00:10 98.1 76 20 117/45 100 Room Air 11/21/16 00:00 77 11/20/16 20:20 98.1 79 20 126/45 100 Room Air 11/20/16 20:00 81 11/20/16 19:54 Room Air 11/20/16 19:54 96 Room Air 11/20/16 16:00 97.9 70 18 116/36 96 Room Air 11/20/16 12:00 75 11/20/16 12:00 98.1 80 18 135/42 98 Room Air 11/20/16 10:17 80 107/61 Intake and Output 11/20/16 11/21/16 19:00 07:00 Intake Total 720 ml 295 ml Balance 720 ml 295 ml Intake Oral 720 ml 240 ml IV Total 55 ml # Voids 1 # Bowel Movements 1 General Appearance: no acute distress Respiratory/Chest: lungs clear Cardiovascular: normal rate Laboratory Tests 11/20/16 21:20: Sodium Level 126L, Potassium Level 6.8*H, Chloride Level 87L, Carbon Dioxide Level 19L, Anion Gap 20H, Blood Urea Nitrogen 96H, Creatinine 10.2H, Estimat Glomerular Filtration Rate 6.3, Glucose Level 288H, Calcium Level 6.9L 11/21/16 06:40: Sodium Level 128L, Potassium Level 6.5*H, Chloride Level 88L, Carbon Dioxide Level 18L, Anion Gap 22H, Blood Urea Nitrogen 106H, Creatinine 11.3H, Estimat Glomerular Filtration Rate 5.6, Glucose Level 138#H, Calcium Level 7.7L, White Blood Count 4.2L, Red Blood Count 4.24L, Hemoglobin 11.2L, Hematocrit 36.7L, Mean Corpuscular Volume 87, Mean Corpuscular Hemoglobin 26.4L, Mean Corpuscular Hemoglobin Concent 30.5L, Red Cell Distribution Width 20.4H, Platelet Count 224 , Mean Platelet Volume 7.8, Neutrophils (%) (Auto) , Lymphocytes (%) (Auto) , Monocytes (%) (Auto) , Eosinophils (%) (Auto) , Basophils (%) (Auto) , Differential Total Cells Counted 100, Neutrophils % (Manual) 28L, Lymphocytes % (Manual) 57H, Monocytes % (Manual) 10, Eosinophils % (Manual) 5H, Basophils % ( Manual) 0, Band Neutrophils 0, Platelet Estimate Adequate, Platelet Morphology Normal, Hypochromasia 2+, Anisocytosis 2+ Current Medications Medications (Trade) Dose Ordered Sig/Zohaib Route PRN Reason Start Time Stop Time Status Last Admin Dose Admin Amlodipine Besylate (Norvasc) 5 mg DAILY ORAL 11/18/16 09:00 12/18/16 08:59 11/21/16 08:57 Cefepime HCl/ Dextrose (Maxipime/D5W) 55 ml @ 110 mls/hr Q24H IVPB 11/18/16 01:00 11/25/16 00:59 11/21/16 00:51 Chlorhexidine Gluconate (Ebony-Hex 2%) 1 applic QHS TOPIC 11/17/16 21:00 12/17/16 20:59 11/20/16 21:26 Cinacalcet (Sensipar) 30 mg DAILY ORAL 11/18/16 09:00 12/18/16 08:59 11/21/16 08:56 Clopidogrel Bisulfate (Plavix) 75 mg DAILY ORAL 11/18/16 09:00 12/18/16 08:59 11/21/16 08:56 Emtricitabine (Emtriva) 200 mg WeSa@1800 ORAL 11/17/16 18:00 12/17/16 17:59 11/17/16 17:30 Fluconazole (Diflucan) 200 mg DAILY ORAL 11/18/16 09:00 11/25/16 08:59 11/21/16 08:57 Hydromorphone HCl (Dilaudid) 0.5 mg Q4H PRN IVP Severe Pain (Pain Scale 7-10) 11/17/16 15:00 11/24/16 14:59 11/21/16 00:46 Lorazepam (Ativan) 0.5 mg QHS PRN ORAL Insomnia 11/17/16 21:00 11/24/16 20:59 Metronidazole (Flagyl) 500 mg Q8HR ORAL 11/17/16 22:00 11/24/16 21:59 11/21/16 06:15 Nateglinide (Starlix) 120 mg TIAC ORAL 11/17/16 16:30 12/17/16 16:29 11/21/16 06:15 Oxycodone HCl (Roxicodone) 5 mg Q4H PRN ORAL For Pain 4-6 11/17/16 14:30 11/24/16 14:29 11/21/16 01:38 Patient Own Medication (Patient's Own Med) 2 ea BID ORAL 11/17/16 18:00 12/17/16 17:59 11/21/16 08:56 Sevelamer Carbonate (Renvela) 1,600 mg TID ORAL 11/18/16 13:00 12/18/16 12:59 11/21/16 08:56 Sevelamer Carbonate 2400 mg 2,400 mg THREE TIMES A DAY GT 11/18/16 11:33 12/17/16 17:59 11/21/16 08:56 Sodium Chloride 1,000 ml @ 500 mls/hr Q2H PRN IVLG sbp<90 during hd 11/21/16 12:30 11/21/16 23:59 Sodium Chloride (Sodium Chloride 1000ml bag) 1,000 ml @ 500 mls/hr Q2H PRN IVLG sbp<90 during hd 11/22/16 09:00 11/22/16 23:59 Temazepam (Restoril) 15 mg BEDTIME ORAL 11/17/16 21:00 11/24/16 20:59 11/20/16 21:25 Tenofovir Disoproxil Fumarate (Viread) 300 mg Sa@1800 ORAL 11/17/16 21:00 12/17/16 20:59 11/17/16 21:43 Vancomycin HCl (Vanco rx to dose) 1 ea DAILY PRN MISC Per rx protocol 11/17/16 15:00 12/17/16 14:59 COSME DE OLIVEIRA Nov 21, 2016 09:21
--- NOTE | 2016-11-21 11:38 | Internal Med Progress Note ---
Subjective Date of Service: Nov 21, 2016 Physician Name Didier Jimenez Attending Physician Didier Jimenez Current Medications Medications (Trade) Dose Ordered Sig/Zohaib Route PRN Reason Start Time Stop Time Status Last Admin Dose Admin Amlodipine Besylate (Norvasc) 5 mg DAILY ORAL 11/18/16 09:00 12/18/16 08:59 11/21/16 08:57 Cefepime HCl/ Dextrose (Maxipime/D5W) 55 ml @ 110 mls/hr Q24H IVPB 11/18/16 01:00 11/25/16 00:59 11/21/16 00:51 Chlorhexidine Gluconate (Ebony-Hex 2%) 1 applic QHS TOPIC 11/17/16 21:00 12/17/16 20:59 11/20/16 21:26 Cinacalcet (Sensipar) 30 mg DAILY ORAL 11/18/16 09:00 12/18/16 08:59 11/21/16 08:56 Clopidogrel Bisulfate (Plavix) 75 mg DAILY ORAL 11/18/16 09:00 12/18/16 08:59 11/21/16 08:56 Emtricitabine (Emtriva) 200 mg WeSa@1800 ORAL 11/17/16 18:00 12/17/16 17:59 11/17/16 17:30 Fluconazole (Diflucan) 200 mg DAILY ORAL 11/18/16 09:00 11/25/16 08:59 11/21/16 08:57 Hydromorphone HCl (Dilaudid) 0.5 mg Q4H PRN IVP Severe Pain (Pain Scale 7-10) 11/17/16 15:00 11/24/16 14:59 11/21/16 09:22 Lorazepam (Ativan) 0.5 mg QHS PRN ORAL Insomnia 11/17/16 21:00 11/24/16 20:59 Metronidazole (Flagyl) 500 mg Q8HR ORAL 11/17/16 22:00 11/24/16 21:59 11/21/16 06:15 Nateglinide (Starlix) 120 mg TIAC ORAL 11/17/16 16:30 12/17/16 16:29 11/21/16 11:26 Oxycodone HCl (Roxicodone) 5 mg Q4H PRN ORAL For Pain 4-6 11/17/16 14:30 11/24/16 14:29 11/21/16 11:26 Patient Own Medication (Patient's Own Med) 2 ea BID ORAL 11/17/16 18:00 12/17/16 17:59 11/21/16 08:56 Sevelamer Carbonate (Renvela) 1,600 mg TID ORAL 11/18/16 13:00 12/18/16 12:59 11/21/16 08:56 Sevelamer Carbonate 2400 mg 2,400 mg THREE TIMES A DAY GT 11/18/16 11:33 12/17/16 17:59 11/21/16 08:56 Sodium Chloride 1,000 ml @ 500 mls/hr Q2H PRN IVLG sbp<90 during hd 11/21/16 12:30 11/21/16 23:59 Sodium Chloride (Sodium Chloride 1000ml bag) 1,000 ml @ 500 mls/hr Q2H PRN IVLG sbp<90 during hd 11/22/16 09:00 11/22/16 23:59 Temazepam (Restoril) 15 mg BEDTIME ORAL 11/17/16 21:00 11/24/16 20:59 11/20/16 21:25 Tenofovir Disoproxil Fumarate (Viread) 300 mg Sa@1800 ORAL 11/17/16 21:00 12/17/16 20:59 11/17/16 21:43 Vancomycin HCl (Vanco rx to dose) 1 ea DAILY PRN MISC Per rx protocol 11/17/16 15:00 12/17/16 14:59 Allergies: Coded Allergies: HEPARIN (Verified Allergy, Severe, low platelets, 06/11/14) SULFA (SULFONAMIDE ANTIBIOTICS) (Verified Allergy, Severe, nephro toxic, ) ZOLPIDEM (Verified Allergy, Unknown, 05/03/16) MEROPENEM (Verified Adverse Reaction, Intermediate, 04/01/16) Nausea and vomiting Uncoded Allergies: pork products (Allergy, Severe, rashes, 06/11/14) ROS Limited/Unobtainable: No Constitutional: Reports: no symptoms HEENT: Reports: no symptoms Cardiovascular: Reports: no symptoms Respiratory: Reports: no symptoms Gastrointestinal/Abdominal: Reports: no symptoms Genitourinary: Reports: no symptoms Neurologic/Psychiatric: Reports: no symptoms Subjective 61 YO M admitted with shortness of breath, hypoglycemia and right diabetic foot ulcer. Now gangrene right foot with osteomyelitis. Transesophageal echo cancelled today due to hyperkalemia. Awaiting dialysis today Objective Last Vital Signs Date Time Temp Pulse Resp B/P Pulse Ox O2 Delivery O2 Flow Rate FiO2 11/21/16 08:57 85 136/52 11/21/16 08:32 16 98 2.0 11/21/16 08:00 97.7 Bi-pap 28 Laboratory Tests Test 11/20/16 21:20 11/21/16 06:40 Sodium Level 126 mEQ/L (135-145) L 128 mEQ/L (135-145) L Potassium Level 6.8 mEQ/L (3.4-4.9) *H 6.5 mEQ/L (3.4-4.9) *H Chloride Level 87 mEQ/L (98-107) L 88 mEQ/L (98-107) L Carbon Dioxide Level 19 mEQ/L (20-30) L 18 mEQ/L (20-30) L Anion Gap 20 (5-15) H 22 (5-15) H Blood Urea Nitrogen 96 mg/dL (7-23) H 106 mg/dL (7-23) H Creatinine 10.2 mg/dL (0.7-1.2) H 11.3 mg/dL (0.7-1.2) H Estimat Glomerular Filtration Rate 6.3 mL/min (>60) 5.6 mL/min (>60) Glucose Level 288 mg/dL (74-106) H 138 mg/dL (74-106) #H Calcium Level 6.9 mg/dL (8.6-10.2) L 7.7 mg/dL (8.6-10.2) L White Blood Count 4.2 K/UL (4.8-10.8) L Red Blood Count 4.24 M/UL (4.70-6.10) L Hemoglobin 11.2 G/DL (14.2-18.0) L Hematocrit 36.7 % (42.0-52.0) L Mean Corpuscular Volume 87 FL (80-99) Mean Corpuscular Hemoglobin 26.4 PG (27.0-31.0) L Mean Corpuscular Hemoglobin Concent 30.5 G/DL (32.0-36.0) L Red Cell Distribution Width 20.4 % (11.6-14.8) H Platelet Count 224 K/UL (150-450) Mean Platelet Volume 7.8 FL (6.5-10.1) Neutrophils (%) (Auto) % (45.0-75.0) Lymphocytes (%) (Auto) % (20.0-45.0) Monocytes (%) (Auto) % (1.0-10.0) Eosinophils (%) (Auto) % (0.0-3.0) Basophils (%) (Auto) % (0.0-2.0) Differential Total Cells Counted 100 Neutrophils % (Manual) 28 % (45-75) L Lymphocytes % (Manual) 57 % (20-45) H Monocytes % (Manual) 10 % (1-10) Eosinophils % (Manual) 5 % (0-3) H Basophils % (Manual) 0 % (0-2) Band Neutrophils 0 % (0-8) Platelet Estimate Adequate Platelet Morphology Normal Hypochromasia 2+ Anisocytosis 2+ Intake and Output 11/20/16 11/21/16 19:00 07:00 Intake Total 720 ml 295 ml Balance 720 ml 295 ml Intake Oral 720 ml 240 ml IV Total 55 ml # Voids 1 # Bowel Movements 1 Objective General Appearance: WD/WN, no apparent distress, alert EENT: PERRL/EOMI, normal ENT inspection, TMs normal Neck: non-tender, normal alignment, supple Cardiovascular: normal peripheral pulses, sinus bradycardia, regular rhythm, no gallop/murmur, no JVD Respiratory/Chest: chest wall non-tender, lungs clear, normal breath sounds, no respiratory distress, no accessory muscle use Abdomen: normal bowel sounds, non tender, soft, no organomegaly, no mass Extremities: right foot dressing clean and dry; normal range of motion 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 See podiatry consult note. cont vanco, cefepime and flagyl per ID (6) HIV disease Assessment & Plan: Continue HAART per ID (7) HTN (hypertension) Assessment & Plan: Continue metoprolol (8) Diabetes Assessment & Plan: Hypoglycemic on arrival. (9) ESRD (end stage renal disease) Assessment & Plan: Hemodialysis today 11/21/16. See nephrology note-Dr Bianchi (10) Bradycardia Assessment & Plan: See cardiology consult. D/C metoprolol and clonidine. (11) Osteomyelitis of ankle or foot, right, acute Assessment & Plan: See podiatry note. (12) Gangrene of right foot (13) Right atrial mass Assessment & Plan: See cardiology note. Transesophageal echo cancelled today due to hyperkalemia-R/O vegetations. 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 (16) Hyperkalemia Assessment & Plan: S/P Kayexalate last pm. Hemodialysis today -see nephrology note. DIDIER JIMENEZ Nov 21, 2016 11:38
[2016-11-21 12:00] VITALS: BP 133/44
[2016-11-21] MEDS ORDERED: Tubing IV Secondary IV ONE (13:44)
[2016-11-21 16:00] VITALS: BP 141/37
--- NOTE | 2016-11-21 16:09 | Cardiac Electrophysiology PN ---
Assessment/Plan Assessment/Plan 1. Bradycardia with sinus arrest and junctional rhythm, heart rate in the 40s as well as left anterior fascicular block. Ruled out myocardial infarction. Resolved. 2. Hypertension, on Norvasc 5 mg daily. 3. End-stage renal disease, on hemodialysis. 4. History of peripheral vascular disease, status post metatarsal amputation, on antibiotic with right foot ulcer. 5. HIV 6. Hepatitis C. 7. Larger right atrial echogenic material/mass. MIAN by Dr Reed tomorrow as felt not stable by anesthesiologist. MIAN 07/03/16 at [facility] severe MR and AI but reported Right atrium was normal. 8. 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 10. Viability study 10/31/16 showed 10% nonviable myocardium. NOE RN Subjective Subjective No events overnight. MIAN cancelled by anesthesia and postponed to tomorrow. Getting ready for dialysis. Objective Last 24 Hour Vital Signs Date Time Temp Pulse Resp B/P Pulse Ox O2 Delivery O2 Flow Rate FiO2 11/21/16 12:00 83 11/21/16 12:00 97.5 84 20 133/44 98 Nasal Cannula 3.0 11/21/16 12:00 2.0 11/21/16 08:57 85 136/52 11/21/16 08:32 85 16 98 2.0 11/21/16 08:00 2.0 11/21/16 08:00 83 11/21/16 08:00 97.7 84 22 136/52 100 Bi-pap 11/21/16 06:44 Nasal Cannula 2.0 11/21/16 06:44 98 Nasal Cannula 2.0 11/21/16 05:28 75 21 100 Full Face 28 11/21/16 04:00 97.8 84 20 140/43 100 Room Air 11/21/16 04:00 81 11/21/16 04:00 28 11/21/16 03:50 72 23 100 Full Face 28 11/21/16 01:44 78 16 100 Full Face 28 11/21/16 00:10 98.1 76 20 117/45 100 Room Air 11/21/16 00:00 77 11/20/16 20:20 98.1 79 20 126/45 100 Room Air 11/20/16 20:00 81 11/20/16 19:54 Room Air 11/20/16 19:54 96 Room Air Intake and Output 11/20/16 11/21/16 19:00 07:00 Intake Total 720 ml 295 ml Balance 720 ml 295 ml Intake Oral 720 ml 240 ml IV Total 55 ml # Voids 1 # Bowel Movements 1 Laboratory Tests Test 11/20/16 21:20 11/21/16 06:40 Sodium Level 126 mEQ/L (135-145) L 128 mEQ/L (135-145) L Potassium Level 6.8 mEQ/L (3.4-4.9) *H 6.5 mEQ/L (3.4-4.9) *H Chloride Level 87 mEQ/L (98-107) L 88 mEQ/L (98-107) L Carbon Dioxide Level 19 mEQ/L (20-30) L 18 mEQ/L (20-30) L Anion Gap 20 (5-15) H 22 (5-15) H Blood Urea Nitrogen 96 mg/dL (7-23) H 106 mg/dL (7-23) H Creatinine 10.2 mg/dL (0.7-1.2) H 11.3 mg/dL (0.7-1.2) H Estimat Glomerular Filtration Rate 6.3 mL/min (>60) 5.6 mL/min (>60) Glucose Level 288 mg/dL (74-106) H 138 mg/dL (74-106) #H Calcium Level 6.9 mg/dL (8.6-10.2) L 7.7 mg/dL (8.6-10.2) L White Blood Count 4.2 K/UL (4.8-10.8) L Red Blood Count 4.24 M/UL (4.70-6.10) L Hemoglobin 11.2 G/DL (14.2-18.0) L Hematocrit 36.7 % (42.0-52.0) L Mean Corpuscular Volume 87 FL (80-99) Mean Corpuscular Hemoglobin 26.4 PG (27.0-31.0) L Mean Corpuscular Hemoglobin Concent 30.5 G/DL (32.0-36.0) L Red Cell Distribution Width 20.4 % (11.6-14.8) H Platelet Count 224 K/UL (150-450) Mean Platelet Volume 7.8 FL (6.5-10.1) Neutrophils (%) (Auto) % (45.0-75.0) Lymphocytes (%) (Auto) % (20.0-45.0) Monocytes (%) (Auto) % (1.0-10.0) Eosinophils (%) (Auto) % (0.0-3.0) Basophils (%) (Auto) % (0.0-2.0) Differential Total Cells Counted 100 Neutrophils % (Manual) 28 % (45-75) L Lymphocytes % (Manual) 57 % (20-45) H Monocytes % (Manual) 10 % (1-10) Eosinophils % (Manual) 5 % (0-3) H Basophils % (Manual) 0 % (0-2) Band Neutrophils 0 % (0-8) Platelet Estimate Adequate Platelet Morphology Normal Hypochromasia 2+ Anisocytosis 2+ Objective HEAD AND NECK: No JVD. LUNGS: Decreased breath sounds.Dialysis Via left subclavian permcath. CARDIOVASCULAR: Shows regular S1 and S2. ABDOMEN: Soft. EXTREMITIES: No pitting edema was there in the right foot ulcer as well as left metatarsal amputation. CLIFTON KEARNEY Nov 21, 2016 16:09
--- NOTE | 2016-11-21 16:57 | Infectious Diseases Prog Note ---
Assessment/Plan Assessment/Plan ASSESSMENT AND PLAN: 1. bilateral R>L foot wounds, right foot and heel infected wounds and necrosis - wound culture with yeast, likely polymicrobial - MRI c/o osteo right ankle and possible right foot - wound culture with nicole, likely polymicrobial infection - podiatry and vascular surgery f/u noted - continue vancomycin, cefepime, flagy and diflucan - failed outpatient zosyn - wound care per protocol - right atrial echodense mass, heart block - ? endocarditis, blood cultures negative - MIAN planned - d/w patients 2. patient getting treated for right heel/foot osteo as outpatient with vancomycin and zosyn based on most recent wound culture in my office 3. End-stage renal disease, on hemodialysis. 4. Hypertension and diabetes, hep c + 5. Human immunodeficiency virus. Continue antiretroviral treatment at this time from home, cd4 ordered. Pt f/u with Dr. Chinchilla for HIV care. 6. Blood sugar and blood pressure control for diabetes and hypertension, per primary. 7. Anemia. 8. Hemodialysis per Renal. 9. Transient ischemic attack. 10. Congestive heart failure. 11. History of osteomyelitis of left foot. 12. Hepatis C. 13. History of seizure. 14. Weakness. 15. Past medical history noted. 16. Allergies to Heparin, meropenem, sulfa, and Zolpidem. 17. MAR was noted. 18. Case was discussed with RN. 19. Social history is negative. 20. Family history is noncontributory. 21. Case discussed with Dr. Thornton. 22. Continue treatment per primary consultants. 23. Wound care protocol. 24. Podiatry followup. 25. Continue Vascular Surgery evaluation. 26. Hypoglycemia treatment per primary. Subjective Constitutional: Reports: other - getting hd, Denies: fever HEENT: Denies: congestion Respiratory: Denies: shortness of breath Breasts: Denies: discharge Cardiovascular: Denies: chest pain, palpitations Gastrointestinal/Abdominal: Denies: diarrhea, nausea, vomiting Genitourinary: Denies: dysuria Neurologic: Denies: headache Psychiatric: Denies: depression Skin: Denies: rash Hematologic: Denies: bleeding Musculoskeletal: Denies: pain Allergies: Coded Allergies: HEPARIN (Verified Allergy, Severe, low platelets, 06/11/14) SULFA (SULFONAMIDE ANTIBIOTICS) (Verified Allergy, Severe, nephro toxic, ) ZOLPIDEM (Verified Allergy, Unknown, 05/03/16) MEROPENEM (Verified Adverse Reaction, Intermediate, 04/01/16) Nausea and vomiting Uncoded Allergies: pork products (Allergy, Severe, rashes, 06/11/14) Objective Vital Signs Last 24 Hour Vital Signs Date Time Temp Pulse Resp B/P Pulse Ox O2 Delivery O2 Flow Rate FiO2 11/21/16 16:00 2.0 11/21/16 15:40 Nasal Cannula 2.0 11/21/16 12:00 83 11/21/16 12:00 97.5 84 20 133/44 98 Nasal Cannula 3.0 11/21/16 12:00 2.0 11/21/16 08:57 85 136/52 11/21/16 08:32 85 16 98 2.0 11/21/16 08:00 2.0 11/21/16 08:00 83 11/21/16 08:00 97.7 84 22 136/52 100 Bi-pap 28 11/21/16 06:44 Nasal Cannula 2.0 11/21/16 06:44 98 Nasal Cannula 2.0 11/21/16 05:28 75 21 100 Full Face 28 11/21/16 04:00 97.8 84 20 140/43 100 Room Air 11/21/16 04:00 81 11/21/16 04:00 28 11/21/16 03:50 72 23 100 Full Face 28 11/21/16 01:44 78 16 100 Full Face 28 11/21/16 00:10 98.1 76 20 117/45 100 Room Air 11/21/16 00:00 77 11/20/16 20:20 98.1 79 20 126/45 100 Room Air 11/20/16 20:00 81 11/20/16 19:54 Room Air 11/20/16 19:54 96 Room Air Height (Feet): 6 Height (Inches): 6.00 Weight (Pounds): 182 General Appearance: no acute distress HEENT: normocephalic, atraumatic, anicteric, mucous membranes moist, PERRL, EOMI, pharynx normal, supple, no JVD Respiratory/Chest: crackles/rales, rhonchi - bilaterally Cardiovascular: normal rate, regular rhythm, no gallop/murmur, no JVD Abdomen: normal bowel sounds, soft, non tender, no organomegaly, non distended Genitourinary: other - + hd, no agarwal Extremities: other - wound covered Skin: no rash Neurologic/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 Impression: Nonspecific, very small foci of abnormal signal at the dorsal heads of the first and fourth proximal phalanges. If there is evidence of active infection with ulcers in these 2 locations, osteomyelitis should be considered. Please correlate clinically. Microbiology Date/Time Source Procedure Growth Status 11/11/16 16:05 Blood Blood Culture - Final NO GROWTH AFTER 5 DAYS Complete 11/10/16 19:50 Nasal Nares MRSA Culture - Final NO METHICILLIN RESISTANT STAPH AUREUS... Complete 11/13/16 02:00 Foot Right Gram Stain - Final Complete 11/13/16 02:00 Aerobic Culture - Final Nicole Parapsilosis Complete 11/13/16 02:00 Foot Right Anaerobic Culture - Final NO ANAEROBES ISOLATED Complete Laboratory Tests Test 11/20/16 21:20 11/21/16 06:40 11/21/16 15:50 Sodium Level 126 mEQ/L (135-145) L 128 mEQ/L (135-145) L Pending Potassium Level 6.8 mEQ/L (3.4-4.9) *H 6.5 mEQ/L (3.4-4.9) *H Pending Chloride Level 87 mEQ/L (98-107) L 88 mEQ/L (98-107) L Pending Carbon Dioxide Level 19 mEQ/L (20-30) L 18 mEQ/L (20-30) L Pending Anion Gap 20 (5-15) H 22 (5-15) H Blood Urea Nitrogen 96 mg/dL (7-23) H 106 mg/dL (7-23) H Pending Creatinine 10.2 mg/dL (0.7-1.2) H 11.3 mg/dL (0.7-1.2) H Pending Estimat Glomerular Filtration Rate 6.3 mL/min (>60) 5.6 mL/min (>60) Pending Glucose Level 288 mg/dL (74-106) H 138 mg/dL (74-106) #H Pending Calcium Level 6.9 mg/dL (8.6-10.2) L 7.7 mg/dL (8.6-10.2) L Pending White Blood Count 4.2 K/UL (4.8-10.8) L Red Blood Count 4.24 M/UL (4.70-6.10) L Hemoglobin 11.2 G/DL (14.2-18.0) L Hematocrit 36.7 % (42.0-52.0) L Mean Corpuscular Volume 87 FL (80-99) Mean Corpuscular Hemoglobin 26.4 PG (27.0-31.0) L Mean Corpuscular Hemoglobin Concent 30.5 G/DL (32.0-36.0) L Red Cell Distribution Width 20.4 % (11.6-14.8) H Platelet Count 224 K/UL (150-450) Mean Platelet Volume 7.8 FL (6.5-10.1) Neutrophils (%) (Auto) % (45.0-75.0) Lymphocytes (%) (Auto) % (20.0-45.0) Monocytes (%) (Auto) % (1.0-10.0) Eosinophils (%) (Auto) % (0.0-3.0) Basophils (%) (Auto) % (0.0-2.0) Differential Total Cells Counted 100 Neutrophils % (Manual) 28 % (45-75) L Lymphocytes % (Manual) 57 % (20-45) H Monocytes % (Manual) 10 % (1-10) Eosinophils % (Manual) 5 % (0-3) H Basophils % (Manual) 0 % (0-2) Band Neutrophils 0 % (0-8) Platelet Estimate Adequate Platelet Morphology Normal Hypochromasia 2+ Anisocytosis 2+ Current Medications Medications (Trade) Dose Ordered Sig/Zohaib Route PRN Reason Start Time Stop Time Status Last Admin Dose Admin Amlodipine Besylate (Norvasc) 5 mg DAILY ORAL 11/18/16 09:00 12/18/16 08:59 11/21/16 08:57 Cefepime HCl/ Dextrose (Maxipime/D5W) 55 ml @ 110 mls/hr Q24H IVPB 11/18/16 01:00 11/25/16 00:59 11/21/16 00:51 Chlorhexidine Gluconate (Ebony-Hex 2%) 1 applic QHS TOPIC 11/17/16 21:00 12/17/16 20:59 11/20/16 21:26 Cinacalcet (Sensipar) 30 mg DAILY ORAL 11/18/16 09:00 12/18/16 08:59 11/21/16 08:56 Clopidogrel Bisulfate (Plavix) 75 mg DAILY ORAL 11/18/16 09:00 12/18/16 08:59 11/21/16 08:56 Emtricitabine (Emtriva) 200 mg WeSa@1800 ORAL 11/17/16 18:00 12/17/16 17:59 11/17/16 17:30 Fluconazole (Diflucan) 200 mg DAILY ORAL 11/18/16 09:00 11/25/16 08:59 11/21/16 08:57 Hydromorphone HCl (Dilaudid) 0.5 mg Q4H PRN IVP Severe Pain (Pain Scale 7-10) 11/17/16 15:00 11/24/16 14:59 11/21/16 14:35 Lorazepam (Ativan) 0.5 mg QHS PRN ORAL Insomnia 11/17/16 21:00 11/24/16 20:59 Metronidazole (Flagyl) 500 mg Q8HR ORAL 11/17/16 22:00 11/24/16 21:59 11/21/16 13:18 Nateglinide (Starlix) 120 mg TIAC ORAL 11/17/16 16:30 12/17/16 16:29 11/21/16 16:42 Oxycodone HCl (Roxicodone) 5 mg Q4H PRN ORAL For Pain 4-6 11/17/16 14:30 11/24/16 14:29 11/21/16 15:34 Patient Own Medication (Patient's Own Med) 2 ea BID ORAL 11/17/16 18:00 12/17/16 17:59 11/21/16 08:56 Sevelamer Carbonate (Renvela) 1,600 mg TID ORAL 11/18/16 13:00 12/18/16 12:59 11/21/16 13:18 Sevelamer Carbonate 2400 mg 2,400 mg THREE TIMES A DAY GT 11/18/16 11:33 12/17/16 17:59 11/21/16 13:18 Sodium Chloride 1,000 ml @ 500 mls/hr Q2H PRN IVLG sbp<90 during hd 11/21/16 12:30 11/21/16 23:59 Sodium Chloride (Sodium Chloride 1000ml bag) 1,000 ml @ 500 mls/hr Q2H PRN IVLG sbp<90 during hd 11/22/16 09:00 11/22/16 23:59 Temazepam (Restoril) 15 mg BEDTIME ORAL 11/17/16 21:00 11/24/16 20:59 11/20/16 21:25 Tenofovir Disoproxil Fumarate (Viread) 300 mg Sa@1800 ORAL 11/17/16 21:00 12/17/16 20:59 11/17/16 21:43 Vancomycin HCl (Vanco rx to dose) 1 ea DAILY PRN MISC Per rx protocol 11/17/16 15:00 12/17/16 14:59 INOCENCIA DOS SANTOS Nov 21, 2016 16:57
[2016-11-21 16:59] LABS: CALCIUM 7.6 mg/dL (8.6-10.2); CREATININE 11.7 mg/dL (0.7-1.2); GLOMERULAR FILTRATION RATE 5.3 mL/min (>60)
[2016-11-21 17:10] LABS: POTASSIUM 7.1 mEQ/L (3.4-4.9)
[2016-11-21 20:15] LABS: CALCIUM 8.2 mg/dL (8.6-10.2); CREATININE 5.5 mg/dL (0.7-1.2); GLOMERULAR FILTRATION RATE 12.8 mL/min (>60); POTASSIUM 3.5 mEQ/L (3.4-4.9)
[2016-11-21 20:29] VITALS: BP 116/52
[2016-11-21] MEDS: Emtricitabine 200mg tab ORAL SCH (21:06)
[2016-11-21] MEDS: Dyna-Hex 2% Top Sol 8oz TOPIC SCH (21:06)
[2016-11-22] VITALS (7 sets, daily range): BP systolic 121–148; BP diastolic 34–90
[2016-11-22] MEDS: Cefepime HCl 0.5 GM in D5W 55 ML IVPB SCH (01:19)
[2016-11-22] MEDS: Hydromorphone 0.5mg/0.5ml inj IVP PRN ×4 (04:34→20:52)
[2016-11-22] MEDS: metroNIDAZOLE 500mg tab ORAL SCH ×2 (06:07→14:20)
[2016-11-22] MEDS: oxyCODONE 5mg IR tab ORAL PRN ×3 (06:07→17:00)
[2016-11-22 08:16] LABS: MEAN CORPUSCULAR HEMOGLOBIN 26.3 PG (27.0-31.0); MEAN CORPUSCULAR HGB CONC 30.5 G/DL (32.0-36.0); MEAN CORPUSCULAR VOLUME 86 FL (80-99); MEAN PLATELET VOLUME 7.8 FL (6.5-10.1); PLATELET COUNT 219 K/UL (150-450); RED CELL DISTRIBUTION WIDTH 20.5 % (11.6-14.8); WHITE BLOOD COUNT 4.9 K/UL (4.8-10.8)
[2016-11-22] MEDS: Fluconazole 100mg tab ORAL SCH (08:49)
[2016-11-22] MEDS: VIRACEPT ORAL SCH ×2 (08:50→17:00)
[2016-11-22] MEDS: Sensipar 30mg Tab ORAL SCH (08:50)
[2016-11-22] MEDS: Renvela 800mg Pkt ORAL SCH ×3 (08:50→16:59)
[2016-11-22] MEDS: Renvela 2400 mg pkt GT SCH ×3 (08:50→16:59)
[2016-11-22 09:08] LABS: CALCIUM 7.8 mg/dL (8.6-10.2); CREATININE 7.9 mg/dL (0.7-1.2); GLOMERULAR FILTRATION RATE 8.5 mL/min (>60); POTASSIUM 5.1 mEQ/L (3.4-4.9)
[2016-11-22 10:32] LABS: BAND NEUTROPHILS % (MANUAL) 3 % (0-8); BASOPHILS % (MANUAL) 0 % (0-2); EOSINOPHILS % (MANUAL) 11 % (0-3); LYMPHOCYTES % (MANUAL) 41 % (20-45); NEUTROPHILS % (MANUAL) 41 % (45-75); PLATELET ESTIMATE ADEQUATE; TOTAL CELLS COUNTED 100
[2016-11-22 10:33] LABS: ANISOCYTOSIS 1+; HYPOCHROMASIA 1+; PLATELET MORPHOLOGY NORMAL
--- NOTE | 2016-11-22 16:15 | Nephrology Progress Note ---
Assessment/Plan Problem List: (1) Osteomyelitis (2) ESRD (end stage renal disease) (3) HTN (hypertension) (4) Hepatitis C (5) Hypoglycemia (6) Vascular disease (7) Valvular cardiomyopathy (8) Wefgp-Iyokg-Mrbmv syndrome (9) Bradycardia (10) Hyperkalemia Plan Dialysis 11/20 via cath, and K bun creatinine reduced appropriately. , He -may have recirculation from catheter. Patient and refuse to use av fistula yet. HD today and reassess lab. . No fluid overload. His pain and infection could be monitored with amputations and earlier rehab--defer to pmd s/p bradycardia episode, bp nl, cardiology eval reviewed, has RA mass. With OWR high risk of hemorrhage if anticoagulated--d/w Dr. Tate Subjective Constitutional: Reports: weakness HEENT: Reports: no symptoms Genitourinary: Reports: no symptoms Neurologic/Psychiatric: Reports: no symptoms Subjective foot pain Objective Objective Last 24 Hour Vital Signs Date Time Temp Pulse Resp B/P Pulse Ox O2 Delivery O2 Flow Rate FiO2 11/22/16 16:10 98.2 91 20 127/88 Room Air 11/22/16 11:53 97.3 90 21 126/87 98 Room Air 11/22/16 11:32 97.3 11/22/16 11:27 85 11/22/16 08:50 59 127/90 11/22/16 07:32 98.1 59 20 127/90 85 Room Air 11/22/16 07:27 91 11/22/16 06:52 Nasal Cannula 3.0 11/22/16 06:51 96 Nasal Cannula 3.0 11/22/16 04:13 98.6 81 20 121/49 100 Bi-pap 11/22/16 04:00 82 11/22/16 00:53 82 22 99 Full Face 28 11/22/16 00:13 98.6 63 21 148/65 97 Room Air 11/22/16 00:00 105 11/22/16 00:00 2.0 28 11/21/16 20:29 97.7 95 20 116/52 95 Room Air 11/21/16 20:00 110 11/21/16 19:16 Nasal Cannula 3.0 32 11/21/16 19:16 98 Nasal Cannula 3.0 32 Intake and Output 11/21/16 11/22/16 19:00 07:00 Intake Total 240 ml 55 ml Balance 240 ml 55 ml Intake Oral 240 ml IV Total 55 ml Laboratory Tests 11/21/16 19:15: Sodium Level 128L, Potassium Level 3.5#, Chloride Level 89L, Carbon Dioxide Level 20, Anion Gap 19H, Blood Urea Nitrogen 44#H, Creatinine 5.5#H, Estimat Glomerular Filtration Rate 12.8, Glucose Level 109H, Calcium Level 8.2L 11/22/16 07:40: Sodium Level 130L, Potassium Level 5.1H, Chloride Level 93L, Carbon Dioxide Level 20, Anion Gap 17H, Blood Urea Nitrogen 68H, Creatinine 7.9H, Estimat Glomerular Filtration Rate 8.5, Glucose Level 113H, Calcium Level 7.8L, White Blood Count 4.9, Red Blood Count 4.00L, Hemoglobin 10.5L, Hematocrit 34.4L, Mean Corpuscular Volume 86, Mean Corpuscular Hemoglobin 26.3L, Mean Corpuscular Hemoglobin Concent 30.5L, Red Cell Distribution Width 20.5H, Platelet Count 219 , Mean Platelet Volume 7.8, Neutrophils (%) (Auto) , Lymphocytes (%) (Auto) , Monocytes (%) (Auto) , Eosinophils (%) (Auto) , Basophils (%) (Auto) , Differential Total Cells Counted 100, Neutrophils % (Manual) 41L, Lymphocytes % (Manual) 41, Monocytes % (Manual) 4, Eosinophils % (Manual) 11H, Basophils % ( Manual) 0, Band Neutrophils 3, Platelet Estimate Adequate, Platelet Morphology Normal, Hypochromasia 1+, Anisocytosis 1+ Height (Feet): 6 Height (Inches): 6.00 Weight (Pounds): 182 General Appearance: no apparent distress, alert EENT: PERRL/EOMI Neck: non-tender, normal alignment Cardiovascular: normal rate, regular rhythm Respiratory/Chest: lungs clear, normal breath sounds Abdomen: non tender, soft, no organomegaly Extremities: other 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
--- NOTE | 2016-11-22 16:36 | Pulmonology Progress Note ---
Assessment/Plan Assessment/Plan 1. Sleep apnea. 2. Sepsis with shock. 3. Right foot osteomyelitis. 4. Chronic hepatitis. 5. OslerWeberRendu syndrome (hemorrhagic telangiectasia). 6. End-stage renal disease, on dialysis. 7. Diabetic autonomic neuropathy. 8. History of hypertension. 9. Human immunodeficiency virus. using BiPAP at night MIAN delayed again Disc w cardiology cont BiPAP Subjective Constitutional: Denies: fever Allergies: Coded Allergies: HEPARIN (Verified Allergy, Severe, low platelets, 06/11/14) SULFA (SULFONAMIDE ANTIBIOTICS) (Verified Allergy, Severe, nephro toxic, ) ZOLPIDEM (Verified Allergy, Unknown, 05/03/16) MEROPENEM (Verified Adverse Reaction, Intermediate, 04/01/16) Nausea and vomiting Uncoded Allergies: pork products (Allergy, Severe, rashes, 06/11/14) Objective Last 24 Hour Vital Signs Date Time Temp Pulse Resp B/P Pulse Ox O2 Delivery O2 Flow Rate FiO2 11/22/16 16:20 98.2 11/22/16 16:10 98.2 91 20 127/88 Room Air 11/22/16 11:53 97.3 90 21 126/87 98 Room Air 11/22/16 11:27 85 11/22/16 08:50 59 127/90 11/22/16 07:32 98.1 59 20 127/90 85 Room Air 11/22/16 07:27 91 11/22/16 06:52 Nasal Cannula 3.0 11/22/16 06:51 96 Nasal Cannula 3.0 11/22/16 04:13 98.6 81 20 121/49 100 Bi-pap 11/22/16 04:00 82 11/22/16 00:53 82 22 99 Full Face 28 11/22/16 00:13 98.6 63 21 148/65 97 Room Air 11/22/16 00:00 105 11/22/16 00:00 2.0 28 11/21/16 20:29 97.7 95 20 116/52 95 Room Air 11/21/16 20:00 110 11/21/16 19:16 Nasal Cannula 3.0 32 11/21/16 19:16 98 Nasal Cannula 3.0 32 Intake and Output 11/21/16 11/22/16 19:00 07:00 Intake Total 240 ml 55 ml Balance 240 ml 55 ml Intake Oral 240 ml IV Total 55 ml General Appearance: no acute distress Respiratory/Chest: lungs clear Laboratory Tests 11/21/16 19:15: Sodium Level 128L, Potassium Level 3.5#, Chloride Level 89L, Carbon Dioxide Level 20, Anion Gap 19H, Blood Urea Nitrogen 44#H, Creatinine 5.5#H, Estimat Glomerular Filtration Rate 12.8, Glucose Level 109H, Calcium Level 8.2L 11/22/16 07:40: Sodium Level 130L, Potassium Level 5.1H, Chloride Level 93L, Carbon Dioxide Level 20, Anion Gap 17H, Blood Urea Nitrogen 68H, Creatinine 7.9H, Estimat Glomerular Filtration Rate 8.5, Glucose Level 113H, Calcium Level 7.8L, White Blood Count 4.9, Red Blood Count 4.00L, Hemoglobin 10.5L, Hematocrit 34.4L, Mean Corpuscular Volume 86, Mean Corpuscular Hemoglobin 26.3L, Mean Corpuscular Hemoglobin Concent 30.5L, Red Cell Distribution Width 20.5H, Platelet Count 219 , Mean Platelet Volume 7.8, Neutrophils (%) (Auto) , Lymphocytes (%) (Auto) , Monocytes (%) (Auto) , Eosinophils (%) (Auto) , Basophils (%) (Auto) , Differential Total Cells Counted 100, Neutrophils % (Manual) 41L, Lymphocytes % (Manual) 41, Monocytes % (Manual) 4, Eosinophils % (Manual) 11H, Basophils % ( Manual) 0, Band Neutrophils 3, Platelet Estimate Adequate, Platelet Morphology Normal, Hypochromasia 1+, Anisocytosis 1+ Current Medications Medications (Trade) Dose Ordered Sig/Zohaib Route PRN Reason Start Time Stop Time Status Last Admin Dose Admin Amlodipine Besylate (Norvasc) 5 mg DAILY ORAL 11/18/16 09:00 12/18/16 08:59 11/21/16 08:57 Cefepime HCl/ Dextrose (Maxipime/D5W) 55 ml @ 110 mls/hr Q24H IVPB 11/18/16 01:00 11/25/16 00:59 11/22/16 01:19 Chlorhexidine Gluconate (Ebony-Hex 2%) 1 applic QHS TOPIC 11/17/16 21:00 12/17/16 20:59 11/21/16 21:06 Cinacalcet (Sensipar) 30 mg DAILY ORAL 11/18/16 09:00 12/18/16 08:59 11/22/16 08:50 Clopidogrel Bisulfate (Plavix) 75 mg DAILY ORAL 11/18/16 09:00 12/18/16 08:59 11/22/16 08:50 Emtricitabine (Emtriva) 200 mg WeSa@1800 ORAL 11/17/16 18:00 12/17/16 17:59 11/21/16 21:06 Fluconazole (Diflucan) 200 mg DAILY ORAL 11/18/16 09:00 11/25/16 08:59 11/22/16 08:49 Hydromorphone HCl (Dilaudid) 0.5 mg Q4H PRN IVP Severe Pain (Pain Scale 7-10) 11/17/16 15:00 11/24/16 14:59 11/22/16 15:50 Lorazepam (Ativan) 0.5 mg QHS PRN ORAL Insomnia 11/17/16 21:00 11/24/16 20:59 Metronidazole (Flagyl) 500 mg Q8HR ORAL 11/17/16 22:00 11/24/16 21:59 11/22/16 14:20 Nateglinide (Starlix) 120 mg TIAC ORAL 11/17/16 16:30 12/17/16 16:29 11/22/16 12:12 Oxycodone HCl (Roxicodone) 5 mg Q4H PRN ORAL For Pain 4-6 11/17/16 14:30 11/24/16 14:29 11/22/16 12:12 Patient Own Medication (Patient's Own Med) 2 ea BID ORAL 11/17/16 18:00 12/17/16 17:59 11/22/16 08:50 Sevelamer Carbonate (Renvela) 1,600 mg TID ORAL 11/18/16 13:00 12/18/16 12:59 11/22/16 12:12 Sevelamer Carbonate 2400 mg 2,400 mg THREE TIMES A DAY GT 11/18/16 11:33 12/17/16 17:59 11/22/16 12:12 Sodium Chloride (Sodium Chloride 1000ml bag) 1,000 ml @ 500 mls/hr Q2H PRN IVLG sbp<90 during hd 11/22/16 09:00 11/22/16 23:59 Temazepam (Restoril) 15 mg BEDTIME ORAL 11/17/16 21:00 11/24/16 20:59 11/21/16 21:06 Tenofovir Disoproxil Fumarate (Viread) 300 mg Sa@1800 ORAL 11/17/16 21:00 12/17/16 20:59 11/17/16 21:43 Vancomycin HCl (Vanco rx to dose) 1 ea DAILY PRN MISC Per rx protocol 11/17/16 15:00 12/17/16 14:59 COSME DE OLIVEIRA Nov 22, 2016 16:36
--- NOTE | 2016-11-22 17:32 | Cardiac Electrophysiology PN ---
Assessment/Plan Assessment/Plan 1. Bradycardia with sinus arrest and junctional rhythm. Ruled out myocardial infarction. Resolved. 2. Hypertension, on Norvasc 5 mg daily. 3. End-stage renal disease, on hemodialysis. 4. Peripheral vascular disease, status post metatarsal amputation, on antibiotic with right foot ulcer. 5. HIV 6. Hepatitis C. 7. Larger right atrial echogenic material/mass. MIAN by Dr Reed tomorrow . MIAN 07/03/16 at [facility] severe MR and AI but reported Right atrium was normal. 8. 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 10. Viability study 10/31/16 showed 10% nonviable myocardium. DW RN and Dr Turcios Subjective Subjective No events overnight. MIAN rescheduled again to tomorrow. Getting ready for dialysis tonight again Objective Last 24 Hour Vital Signs Date Time Temp Pulse Resp B/P Pulse Ox O2 Delivery O2 Flow Rate FiO2 11/22/16 16:20 98.2 11/22/16 16:10 98.2 91 20 127/88 Room Air 11/22/16 15:44 77 11/22/16 11:53 97.3 90 21 126/87 98 Room Air 11/22/16 11:27 85 11/22/16 08:50 59 127/90 11/22/16 07:32 98.1 59 20 127/90 85 Room Air 11/22/16 07:27 91 11/22/16 06:52 Nasal Cannula 3.0 11/22/16 06:51 96 Nasal Cannula 3.0 11/22/16 04:13 98.6 81 20 121/49 100 Bi-pap 11/22/16 04:00 82 11/22/16 00:53 82 22 99 Full Face 28 11/22/16 00:13 98.6 63 21 148/65 97 Room Air 11/22/16 00:00 105 11/22/16 00:00 2.0 28 11/21/16 20:29 97.7 95 20 116/52 95 Room Air 11/21/16 20:00 110 11/21/16 19:16 Nasal Cannula 3.0 32 11/21/16 19:16 98 Nasal Cannula 3.0 32 Intake and Output 11/21/16 11/22/16 19:00 07:00 Intake Total 240 ml 55 ml Balance 240 ml 55 ml Intake Oral 240 ml IV Total 55 ml Laboratory Tests Test 11/21/16 19:15 11/22/16 07:40 Sodium Level 128 mEQ/L (135-145) L 130 mEQ/L (135-145) L Potassium Level 3.5 mEQ/L (3.4-4.9) # 5.1 mEQ/L (3.4-4.9) H Chloride Level 89 mEQ/L (98-107) L 93 mEQ/L (98-107) L Carbon Dioxide Level 20 mEQ/L (20-30) 20 mEQ/L (20-30) Anion Gap 19 (5-15) H 17 (5-15) H Blood Urea Nitrogen 44 mg/dL (7-23) #H 68 mg/dL (7-23) H Creatinine 5.5 mg/dL (0.7-1.2) #H 7.9 mg/dL (0.7-1.2) H Estimat Glomerular Filtration Rate 12.8 mL/min (>60) 8.5 mL/min (>60) Glucose Level 109 mg/dL (74-106) H 113 mg/dL (74-106) H Calcium Level 8.2 mg/dL (8.6-10.2) L 7.8 mg/dL (8.6-10.2) L White Blood Count 4.9 K/UL (4.8-10.8) Red Blood Count 4.00 M/UL (4.70-6.10) L Hemoglobin 10.5 G/DL (14.2-18.0) L Hematocrit 34.4 % (42.0-52.0) L Mean Corpuscular Volume 86 FL (80-99) Mean Corpuscular Hemoglobin 26.3 PG (27.0-31.0) L Mean Corpuscular Hemoglobin Concent 30.5 G/DL (32.0-36.0) L Red Cell Distribution Width 20.5 % (11.6-14.8) H Platelet Count 219 K/UL (150-450) Mean Platelet Volume 7.8 FL (6.5-10.1) Neutrophils (%) (Auto) % (45.0-75.0) Lymphocytes (%) (Auto) % (20.0-45.0) Monocytes (%) (Auto) % (1.0-10.0) Eosinophils (%) (Auto) % (0.0-3.0) Basophils (%) (Auto) % (0.0-2.0) Differential Total Cells Counted 100 Neutrophils % (Manual) 41 % (45-75) L Lymphocytes % (Manual) 41 % (20-45) Monocytes % (Manual) 4 % (1-10) Eosinophils % (Manual) 11 % (0-3) H Basophils % (Manual) 0 % (0-2) Band Neutrophils 3 % (0-8) Platelet Estimate Adequate Platelet Morphology Normal Hypochromasia 1+ Anisocytosis 1+ Objective HEAD AND NECK: No JVD. LUNGS: Decreased breath sounds.Dialysis Via left subclavian permcath. CARDIOVASCULAR: Shows regular S1 and S2. ABDOMEN: Soft. EXTREMITIES: No pitting edema was there in the right foot ulcer as well as left metatarsal amputation. CLIFTON KEARNEY Nov 22, 2016 17:32
--- NOTE | 2016-11-22 18:56 | Internal Med Progress Note ---
Subjective Date of Service: Nov 22, 2016 Physician Name Didier Jimenez Attending Physician Didier Jimenez Current Medications Medications (Trade) Dose Ordered Sig/Zohaib Route PRN Reason Start Time Stop Time Status Last Admin Dose Admin Amlodipine Besylate (Norvasc) 5 mg DAILY ORAL 11/18/16 09:00 12/18/16 08:59 11/21/16 08:57 Cefepime HCl/ Dextrose (Maxipime/D5W) 55 ml @ 110 mls/hr Q24H IVPB 11/18/16 01:00 11/25/16 00:59 11/22/16 01:19 Chlorhexidine Gluconate (Ebony-Hex 2%) 1 applic QHS TOPIC 11/17/16 21:00 12/17/16 20:59 11/21/16 21:06 Cinacalcet (Sensipar) 30 mg DAILY ORAL 11/18/16 09:00 12/18/16 08:59 11/22/16 08:50 Clopidogrel Bisulfate (Plavix) 75 mg DAILY ORAL 11/18/16 09:00 12/18/16 08:59 11/22/16 08:50 Emtricitabine (Emtriva) 200 mg WeSa@1800 ORAL 11/17/16 18:00 12/17/16 17:59 11/21/16 21:06 Fluconazole (Diflucan) 200 mg DAILY ORAL 11/18/16 09:00 11/25/16 08:59 11/22/16 08:49 Hydromorphone HCl (Dilaudid) 0.5 mg Q4H PRN IVP Severe Pain (Pain Scale 7-10) 11/17/16 15:00 11/24/16 14:59 11/22/16 15:50 Lorazepam (Ativan) 0.5 mg QHS PRN ORAL Insomnia 11/17/16 21:00 11/24/16 20:59 Metronidazole (Flagyl) 500 mg Q8HR ORAL 11/17/16 22:00 11/24/16 21:59 11/22/16 14:20 Nateglinide (Starlix) 120 mg TIAC ORAL 11/17/16 16:30 12/17/16 16:29 11/22/16 16:59 Oxycodone HCl (Roxicodone) 5 mg Q4H PRN ORAL For Pain 4-6 11/17/16 14:30 11/24/16 14:29 11/22/16 17:00 Patient Own Medication (Patient's Own Med) 2 ea BID ORAL 11/17/16 18:00 12/17/16 17:59 11/22/16 17:00 Sevelamer Carbonate (Renvela) 1,600 mg TID ORAL 11/18/16 13:00 12/18/16 12:59 11/22/16 16:59 Sevelamer Carbonate 2400 mg 2,400 mg THREE TIMES A DAY GT 11/18/16 11:33 12/17/16 17:59 11/22/16 16:59 Sodium Chloride (Sodium Chloride 1000ml bag) 1,000 ml @ 500 mls/hr Q2H PRN IVLG sbp<90 during hd 11/22/16 09:00 11/22/16 23:59 Temazepam (Restoril) 15 mg BEDTIME ORAL 11/17/16 21:00 11/24/16 20:59 11/21/16 21:06 Tenofovir Disoproxil Fumarate (Viread) 300 mg Sa@1800 ORAL 11/17/16 21:00 12/17/16 20:59 11/17/16 21:43 Vancomycin HCl (Vanco rx to dose) 1 ea DAILY PRN MISC Per rx protocol 11/17/16 15:00 12/17/16 14:59 Allergies: Coded Allergies: HEPARIN (Verified Allergy, Severe, low platelets, 06/11/14) SULFA (SULFONAMIDE ANTIBIOTICS) (Verified Allergy, Severe, nephro toxic, ) ZOLPIDEM (Verified Allergy, Unknown, 05/03/16) MEROPENEM (Verified Adverse Reaction, Intermediate, 04/01/16) Nausea and vomiting Uncoded Allergies: pork products (Allergy, Severe, rashes, 06/11/14) ROS Limited/Unobtainable: No Constitutional: Reports: no symptoms HEENT: Reports: no symptoms Cardiovascular: Reports: no symptoms Respiratory: Reports: no symptoms Gastrointestinal/Abdominal: Reports: no symptoms Genitourinary: Reports: no symptoms Neurologic/Psychiatric: Reports: no symptoms Subjective 61 YO M admitted with shortness of breath, hypoglycemia and right diabetic foot ulcer. Now gangrene right foot with osteomyelitis. Await Transesophageal echo on 7/28/17 Objective Last Vital Signs Date Time Temp Pulse Resp B/P Pulse Ox O2 Delivery O2 Flow Rate FiO2 11/22/16 16:20 98.2 11/22/16 16:10 91 20 127/88 Room Air 11/22/16 11:53 98 11/22/16 06:52 3.0 11/22/16 00:53 28 Laboratory Tests Test 11/21/16 19:15 11/22/16 07:40 Sodium Level 128 mEQ/L (135-145) L 130 mEQ/L (135-145) L Potassium Level 3.5 mEQ/L (3.4-4.9) # 5.1 mEQ/L (3.4-4.9) H Chloride Level 89 mEQ/L (98-107) L 93 mEQ/L (98-107) L Carbon Dioxide Level 20 mEQ/L (20-30) 20 mEQ/L (20-30) Anion Gap 19 (5-15) H 17 (5-15) H Blood Urea Nitrogen 44 mg/dL (7-23) #H 68 mg/dL (7-23) H Creatinine 5.5 mg/dL (0.7-1.2) #H 7.9 mg/dL (0.7-1.2) H Estimat Glomerular Filtration Rate 12.8 mL/min (>60) 8.5 mL/min (>60) Glucose Level 109 mg/dL (74-106) H 113 mg/dL (74-106) H Calcium Level 8.2 mg/dL (8.6-10.2) L 7.8 mg/dL (8.6-10.2) L White Blood Count 4.9 K/UL (4.8-10.8) Red Blood Count 4.00 M/UL (4.70-6.10) L Hemoglobin 10.5 G/DL (14.2-18.0) L Hematocrit 34.4 % (42.0-52.0) L Mean Corpuscular Volume 86 FL (80-99) Mean Corpuscular Hemoglobin 26.3 PG (27.0-31.0) L Mean Corpuscular Hemoglobin Concent 30.5 G/DL (32.0-36.0) L Red Cell Distribution Width 20.5 % (11.6-14.8) H Platelet Count 219 K/UL (150-450) Mean Platelet Volume 7.8 FL (6.5-10.1) Neutrophils (%) (Auto) % (45.0-75.0) Lymphocytes (%) (Auto) % (20.0-45.0) Monocytes (%) (Auto) % (1.0-10.0) Eosinophils (%) (Auto) % (0.0-3.0) Basophils (%) (Auto) % (0.0-2.0) Differential Total Cells Counted 100 Neutrophils % (Manual) 41 % (45-75) L Lymphocytes % (Manual) 41 % (20-45) Monocytes % (Manual) 4 % (1-10) Eosinophils % (Manual) 11 % (0-3) H Basophils % (Manual) 0 % (0-2) Band Neutrophils 3 % (0-8) Platelet Estimate Adequate Platelet Morphology Normal Hypochromasia 1+ Anisocytosis 1+ Intake and Output 11/21/16 11/22/16 19:00 07:00 Intake Total 240 ml 55 ml Balance 240 ml 55 ml Intake Oral 240 ml IV Total 55 ml Objective General Appearance: WD/WN, no apparent distress, alert EENT: PERRL/EOMI, normal ENT inspection, TMs normal Neck: non-tender, normal alignment, supple Cardiovascular: normal peripheral pulses, sinus bradycardia, regular rhythm, no gallop/murmur, no JVD Respiratory/Chest: chest wall non-tender, lungs clear, normal breath sounds, no respiratory distress, no accessory muscle use Abdomen: normal bowel sounds, non tender, soft, no organomegaly, no mass Extremities: right foot dressing clean and dry; normal range of motion 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 See podiatry consult note. cont vanco, cefepime and flagyl per ID (6) HIV disease Assessment & Plan: Continue HAART per ID (7) HTN (hypertension) Assessment & Plan: Continue metoprolol (8) Diabetes Assessment & Plan: Hypoglycemic on arrival. (9) ESRD (end stage renal disease) Assessment & Plan: Hemodialysis today 11/21/16. See nephrology note-Dr Bianchi (10) Bradycardia Assessment & Plan: See cardiology consult. D/C metoprolol and clonidine. (11) Osteomyelitis of ankle or foot, right, acute Assessment & Plan: See podiatry note. (12) Gangrene of right foot (13) Right atrial mass Assessment & Plan: See cardiology note. Transesophageal echo scheduled - R/O vegetations. (14) Pmiyj-Engvc-Jawyf syndrome (15) Peripheral vascular disease Assessment & Plan: See vascular surgery note. (16) Hyperkalemia Assessment & Plan: S/P Kayexalate last pm. Hemodialysis today -see nephrology note. Status: unchanged DIDIER JIMENEZ Nov 22, 2016 18:56
[2016-11-22] MEDS: Dyna-Hex 2% Top Sol 8oz TOPIC SCH (20:52)
[2016-11-22 21:27] LABS: CALCIUM 7.3 mg/dL (8.6-10.2); CREATININE 9.5 mg/dL (0.7-1.2); GLOMERULAR FILTRATION RATE 6.8 mL/min (>60); POTASSIUM 5.6 mEQ/L (3.4-4.9)
[2016-11-23] VITALS (11 sets, daily range): BP systolic 102–140; BP diastolic 27–45
[2016-11-23] MEDS: Hydromorphone 0.5mg/0.5ml inj IVP PRN ×5 (01:11→21:07)
[2016-11-23] MEDS: metroNIDAZOLE 500mg tab ORAL SCH ×3 (01:11→21:18)
[2016-11-23] MEDS ORDERED: Cefepime 1gm vial ONE (01:26)
[2016-11-23] MEDS: Cefepime HCl 0.5 GM in D5W 55 ML IVPB SCH (01:55)
[2016-11-23 07:55] LABS: GLOMERULAR FILTRATION RATE 11.6 mL/min (>60); POTASSIUM 4.2 mEQ/L (3.4-4.9)
[2016-11-23 08:03] LABS: BASOPHILS % (AUTO) 1.7 % (0.0-2.0); EOSINOPHILS % (AUTO) 5.2 % (0.0-3.0); LYMPHOCYTES % (AUTO) 36.9 % (20.0-45.0); MEAN CORPUSCULAR HEMOGLOBIN 26.5 PG (27.0-31.0); MEAN CORPUSCULAR HGB CONC 30.3 G/DL (32.0-36.0); MEAN CORPUSCULAR VOLUME 87 FL (80-99); MEAN PLATELET VOLUME 8.3 FL (6.5-10.1); MONOCYTES % (AUTO) 18.3 % (1.0-10.0); NEUTROPHILS % (AUTO) 37.8 % (45.0-75.0); PLATELET COUNT 238 K/UL (150-450); RED BLOOD COUNT 4.28 M/UL (4.70-6.10); RED CELL DISTRIBUTION WIDTH 20.3 % (11.6-14.8); WHITE BLOOD COUNT 5.1 K/UL (4.8-10.8)
--- NOTE | 2016-11-23 08:56 | Pulmonology Progress Note ---
Assessment/Plan Assessment/Plan 1. Sleep apnea. 2. Sepsis with shock. 3. Right foot osteomyelitis. 4. Chronic hepatitis. 5. OslerWeberRendu syndrome (hemorrhagic telangiectasia). 6. End-stage renal disease, on dialysis. 7. Diabetic autonomic neuropathy. 8. History of hypertension. 9. Human immunodeficiency virus. using BiPAP at night MIAN planned today Disc w cont BiPAP stable for procedure Subjective Constitutional: Denies: fever Allergies: Coded Allergies: HEPARIN (Verified Allergy, Severe, low platelets, 06/11/14) SULFA (SULFONAMIDE ANTIBIOTICS) (Verified Allergy, Severe, nephro toxic, ) ZOLPIDEM (Verified Allergy, Unknown, 05/03/16) MEROPENEM (Verified Adverse Reaction, Intermediate, 04/01/16) Nausea and vomiting Uncoded Allergies: pork products (Allergy, Severe, rashes, 06/11/14) Objective Last 24 Hour Vital Signs Date Time Temp Pulse Resp B/P Pulse Ox O2 Delivery O2 Flow Rate FiO2 11/23/16 06:03 98.1 11/23/16 05:45 74 17 99 Full Face 11/23/16 04:00 77 11/23/16 03:59 98.1 81 21 119/43 100 11/23/16 03:05 76 16 98 Full Face 28 11/23/16 01:27 89 18 99 Full Face 11/23/16 00:00 98 11/22/16 23:58 98.3 80 19 132/34 95 Room Air 11/22/16 22:00 2.0 28 11/22/16 20:30 Nasal Cannula 2.0 11/22/16 20:06 97.9 82 20 129/37 95 Room Air 11/22/16 20:00 86 11/22/16 19:42 Room Air 11/22/16 19:41 96 Room Air 11/22/16 16:10 98.2 91 20 127/88 Room Air 11/22/16 15:44 77 11/22/16 11:53 97.3 90 21 126/87 98 Room Air 11/22/16 11:27 85 Intake and Output 11/22/16 11/23/16 19:00 07:00 Intake Total 1570 ml Output Total 600 ml Balance 970 ml Intake Oral 1570 ml Output Urine Total 600 ml # Voids 3 1 General Appearance: no acute distress Respiratory/Chest: lungs clear Cardiovascular: normal rate Laboratory Tests 11/22/16 20:30: Sodium Level 128L, Potassium Level 5.6H, Chloride Level 89L, Carbon Dioxide Level 20, Anion Gap 19H, Blood Urea Nitrogen 86H, Creatinine 9.5H, Estimat Glomerular Filtration Rate 6.8, Glucose Level 138H, Calcium Level 7.3L 11/23/16 06:35: Sodium Level 133L, Potassium Level 4.2, Chloride Level 94L, Carbon Dioxide Level 20, Anion Gap 19H, Blood Urea Nitrogen 45#H, Creatinine 6.0H, Estimat Glomerular Filtration Rate 11.6, Glucose Level 133H, Calcium Level 8.0L, White Blood Count 5.1, Red Blood Count 4.28L, Hemoglobin 11.3L, Hematocrit 37.4L, Mean Corpuscular Volume 87, Mean Corpuscular Hemoglobin 26.5L, Mean Corpuscular Hemoglobin Concent 30.3L, Red Cell Distribution Width 20.3H, Platelet Count 238 , Mean Platelet Volume 8.3, Neutrophils (%) (Auto) 37.8L, Lymphocytes (%) (Auto ) 36.9, Monocytes (%) (Auto) 18.3H, Eosinophils (%) (Auto) 5.2H, Basophils (%) ( Auto) 1.7, Random Vancomycin Level 15.8 Current Medications Medications (Trade) Dose Ordered Sig/Zohaib Route PRN Reason Start Time Stop Time Status Last Admin Dose Admin Amlodipine Besylate (Norvasc) 5 mg DAILY ORAL 11/18/16 09:00 12/18/16 08:59 11/21/16 08:57 Cefepime HCl/ Dextrose (Maxipime/D5W) 55 ml @ 110 mls/hr Q24H IVPB 11/18/16 01:00 11/25/16 00:59 11/23/16 01:55 Chlorhexidine Gluconate (Ebony-Hex 2%) 1 applic QHS TOPIC 11/17/16 21:00 12/17/16 20:59 11/22/16 20:52 Cinacalcet (Sensipar) 30 mg DAILY ORAL 11/18/16 09:00 12/18/16 08:59 11/22/16 08:50 Clopidogrel Bisulfate (Plavix) 75 mg DAILY ORAL 11/18/16 09:00 12/18/16 08:59 11/22/16 08:50 Emtricitabine (Emtriva) 200 mg WeSa@1800 ORAL 11/17/16 18:00 12/17/16 17:59 11/21/16 21:06 Fluconazole (Diflucan) 200 mg DAILY ORAL 11/18/16 09:00 11/25/16 08:59 11/22/16 08:49 Hydromorphone HCl (Dilaudid) 0.5 mg Q4H PRN IVP Severe Pain (Pain Scale 7-10) 11/17/16 15:00 11/24/16 14:59 11/23/16 05:33 Lorazepam (Ativan) 0.5 mg QHS PRN ORAL Insomnia 11/17/16 21:00 11/24/16 20:59 Metronidazole (Flagyl) 500 mg Q8HR ORAL 11/17/16 22:00 11/24/16 21:59 11/23/16 05:32 Nateglinide (Starlix) 120 mg TIAC ORAL 11/17/16 16:30 12/17/16 16:29 11/22/16 16:59 Oxycodone HCl (Roxicodone) 5 mg Q4H PRN ORAL For Pain 4-6 11/17/16 14:30 11/24/16 14:29 11/22/16 17:00 Patient Own Medication (Patient's Own Med) 2 ea BID ORAL 11/17/16 18:00 12/17/16 17:59 11/22/16 17:00 Sevelamer Carbonate (Renvela) 1,600 mg TID ORAL 11/18/16 13:00 12/18/16 12:59 11/22/16 16:59 Sevelamer Carbonate (Renvela) 2,400 mg THREE TIMES A DAY GT 11/18/16 11:33 12/17/16 17:59 11/22/16 16:59 Temazepam (Restoril) 15 mg BEDTIME ORAL 11/17/16 21:00 11/24/16 20:59 11/22/16 20:52 Tenofovir Disoproxil Fumarate (Viread) 300 mg Sa@1800 ORAL 11/17/16 21:00 12/17/16 20:59 11/17/16 21:43 Vancomycin HCl (Vanco rx to dose) 1 ea DAILY PRN MISC Per rx protocol 11/17/16 15:00 12/17/16 14:59 COSME DE OLIVEIRA Nov 23, 2016 08:56
[2016-11-23] MEDS: Fluconazole 100mg tab ORAL SCH (08:59)
[2016-11-23] MEDS: VIRACEPT ORAL SCH ×2 (09:00→16:39)
[2016-11-23] MEDS: Renvela 2400 mg pkt GT SCH ×3 (09:00→16:41)
[2016-11-23] MEDS: Renvela 800mg Pkt ORAL SCH ×3 (09:00→16:41)
[2016-11-23] MEDS: Sensipar 30mg Tab ORAL SCH (09:00)
[2016-11-23] MEDS ORDERED: Vancomycin 1gm/D5W 275ml IVPB ONE ×2 (10:15)
[2016-11-23] MEDS: oxyCODONE 5mg IR tab ORAL PRN ×3 (11:02→22:43)
--- NOTE | 2016-11-23 12:44 | Nephrology Progress Note ---
Assessment/Plan Problem List: (1) Osteomyelitis (2) ESRD (end stage renal disease) (3) HTN (hypertension) (4) Hepatitis C (5) Hypoglycemia (6) Vascular disease (7) Valvular cardiomyopathy (8) Pntbk-Egifb-Wxqwd syndrome (9) Bradycardia (10) Hyperkalemia Plan Dialysis 11/22 via cath, and K bun creatinine reduced appropriately. , He -may have recirculation from catheter. Patient and refuse to use av fistula yet. HD 11/24 and reassess lab. . No fluid overload. His pain and infection could be monitored with amputations and earlier rehab--defer to pmd s/p bradycardia episode, bp nl, cardiology eval reviewed, has RA mass. With OWR high risk of hemorrhage if anticoagulated--d/w Dr. Tate Subjective Constitutional: Reports: weakness HEENT: Reports: no symptoms Neurologic/Psychiatric: Reports: no symptoms Subjective foot pain Objective Objective Last 24 Hour Vital Signs Date Time Temp Pulse Resp B/P Pulse Ox O2 Delivery O2 Flow Rate FiO2 11/23/16 10:59 97.9 11/23/16 09:00 74 119/43 11/23/16 08:00 97.9 87 19 102/32 100 Nasal Cannula 11/23/16 07:43 Nasal Cannula 2.0 11/23/16 07:42 100 Nasal Cannula 2.0 11/23/16 07:34 88 11/23/16 05:45 74 17 99 Full Face 28 11/23/16 04:00 77 11/23/16 03:59 98.1 81 21 119/43 100 11/23/16 03:05 76 16 98 Full Face 28 11/23/16 01:27 89 18 99 Full Face 11/23/16 00:00 98 11/22/16 23:58 98.3 80 19 132/34 95 Room Air 11/22/16 22:00 2.0 28 11/22/16 20:30 Nasal Cannula 2.0 11/22/16 20:06 97.9 82 20 129/37 95 Room Air 11/22/16 20:00 86 11/22/16 19:42 Room Air 11/22/16 19:41 96 Room Air 11/22/16 16:10 98.2 91 20 127/88 Room Air 11/22/16 15:44 77 Intake and Output 11/22/16 11/23/16 19:00 07:00 Intake Total 1570 ml Output Total 600 ml Balance 970 ml Intake Oral 1570 ml Output Urine Total 600 ml # Voids 3 1 Laboratory Tests 11/22/16 20:30: Sodium Level 128L, Potassium Level 5.6H, Chloride Level 89L, Carbon Dioxide Level 20, Anion Gap 19H, Blood Urea Nitrogen 86H, Creatinine 9.5H, Estimat Glomerular Filtration Rate 6.8, Glucose Level 138H, Calcium Level 7.3L 11/23/16 06:35: Sodium Level 133L, Potassium Level 4.2, Chloride Level 94L, Carbon Dioxide Level 20, Anion Gap 19H, Blood Urea Nitrogen 45#H, Creatinine 6.0H, Estimat Glomerular Filtration Rate 11.6, Glucose Level 133H, Calcium Level 8.0L, White Blood Count 5.1, Red Blood Count 4.28L, Hemoglobin 11.3L, Hematocrit 37.4L, Mean Corpuscular Volume 87, Mean Corpuscular Hemoglobin 26.5L, Mean Corpuscular Hemoglobin Concent 30.3L, Red Cell Distribution Width 20.3H, Platelet Count 238 , Mean Platelet Volume 8.3, Neutrophils (%) (Auto) 37.8L, Lymphocytes (%) (Auto ) 36.9, Monocytes (%) (Auto) 18.3H, Eosinophils (%) (Auto) 5.2H, Basophils (%) ( Auto) 1.7, Random Vancomycin Level 15.8 Height (Feet): 6 Height (Inches): 6.00 Weight (Pounds): 181 General Appearance: no apparent distress, alert EENT: normal ENT inspection Neck: normal alignment Cardiovascular: normal rate, regular rhythm, systolic murmur Respiratory/Chest: lungs clear, normal breath sounds Extremities: other - no edema Neurologic: candy separator hard II-XII grossly normal DURGA MORE Nov 23, 2016 12:44
[2016-11-23] MEDS ORDERED: LR 1000ml ONE (14:00)
[2016-11-23] MEDS ORDERED: NS 550ML IV ONE (14:00)
[2016-11-23] MEDS ORDERED: Propofol 10mg/ml 20ml IV ONE (14:00)
--- NOTE | 2016-11-23 14:18 | Pre-Procedure Note/Attestation ---
Pre-Procedure Note/Attestation Complete Prior to Procedure Procedure Narrative: MIAN Indications for Procedure Pre-Operative Diagnosis: Right atrial mass Severe AR/MR Attestation I attest that I discussed the nature of the procedure; its benefits; risks and complications; and alternatives (and the risks and benefits of such alternatives ), prior to the procedure, with the patient (or the patient's legal regional sales representative). I attest that, if there was a reasonable possibility of needing a blood transfusion, the patient (or the patient's legal regional sales representative) was given the [facility] standardized written summary, pursuant to the [place] Blood Safety Act ([place] [facility] and Safety Code # 1645, as amended). I attest that I re-evaluated the patient just prior to the surgery and that there has been no change in the patient's H&P, except as documented below: CLIFTON ISLAS Nov 23, 2016 14:18
--- NOTE | 2016-11-23 14:39 | Infectious Diseases Prog Note ---
Assessment/Plan Assessment/Plan ASSESSMENT AND PLAN: 1. bilateral R>L foot wounds, right foot and heel infected wounds and necrosis - wound culture with yeast, likely polymicrobial - MRI c/o osteo right ankle and possible right foot - wound culture with nicole, likely polymicrobial infection - podiatry and vascular surgery f/u noted - continue vancomycin, cefepime, flagy and diflucan - failed outpatient zosyn - wound care per protocol - right atrial echodense mass, heart block - ? endocarditis, blood cultures negative - MIAN today 2. patient getting treated for right heel/foot osteo as outpatient with vancomycin and zosyn based on most recent wound culture in my office 3. End-stage renal disease, on hemodialysis. 4. Hypertension and diabetes, hep c + 5. Human immunodeficiency virus. Continue antiretroviral treatment at this time from home, cd4 ordered. Pt f/u with Dr. Chinchilla for HIV care. 6. Blood sugar and blood pressure control for diabetes and hypertension, per primary. 7. Anemia. 8. Hemodialysis per Renal. 9. Transient ischemic attack. 10. Congestive heart failure. 11. History of osteomyelitis of left foot. 12. Hepatis C. 13. History of seizure. 14. Weakness. 15. Past medical history noted. 16. Allergies to Heparin, meropenem, sulfa, and Zolpidem. 17. MAR was noted. 18. Case was discussed with RN. 19. Social history is negative. 20. Family history is noncontributory. 21. Case discussed with Dr. Thornton. 22. Continue treatment per primary consultants. 23. Wound care protocol. 24. Podiatry followup. 25. Continue Vascular Surgery evaluation. 26. Hypoglycemia treatment per primary. Subjective Constitutional: Reports: fatigue, Denies: fever HEENT: Denies: congestion Respiratory: Denies: shortness of breath Cardiovascular: Denies: chest pain Gastrointestinal/Abdominal: Denies: diarrhea, nausea, vomiting Genitourinary: Reports: other - no agarwal Neurologic: Denies: headache Psychiatric: Denies: depression Skin: Denies: rash Hematologic: Denies: bleeding Musculoskeletal: Denies: pain Allergies: Coded Allergies: HEPARIN (Verified Allergy, Severe, low platelets, 06/11/14) SULFA (SULFONAMIDE ANTIBIOTICS) (Verified Allergy, Severe, nephro toxic, ) ZOLPIDEM (Verified Allergy, Unknown, 05/03/16) MEROPENEM (Verified Adverse Reaction, Intermediate, 04/01/16) Nausea and vomiting Uncoded Allergies: pork products (Allergy, Severe, rashes, 06/11/14) Objective Vital Signs Last 24 Hour Vital Signs Date Time Temp Pulse Resp B/P Pulse Ox O2 Delivery O2 Flow Rate FiO2 11/23/16 12:11 85 11/23/16 12:00 98.2 86 19 115/27 100 Nasal Cannula 11/23/16 10:59 97.9 11/23/16 09:00 74 119/43 11/23/16 08:00 97.9 87 19 102/32 100 Nasal Cannula 11/23/16 07:43 Nasal Cannula 2.0 11/23/16 07:42 100 Nasal Cannula 2.0 11/23/16 07:34 88 11/23/16 05:45 74 17 99 Full Face 28 11/23/16 04:00 77 11/23/16 03:59 98.1 81 21 119/43 100 11/23/16 03:05 76 16 98 Full Face 28 11/23/16 01:27 89 18 99 Full Face 28 11/23/16 00:00 98 11/22/16 23:58 98.3 80 19 132/34 95 Room Air 11/22/16 22:00 2.0 28 11/22/16 20:30 Nasal Cannula 2.0 11/22/16 20:06 97.9 82 20 129/37 95 Room Air 11/22/16 20:00 86 11/22/16 19:42 Room Air 11/22/16 19:41 96 Room Air 11/22/16 16:10 98.2 91 20 127/88 Room Air 11/22/16 15:44 77 Height (Feet): 6 Height (Inches): 6.00 Weight (Pounds): 181 General Appearance: no acute distress HEENT: normocephalic, atraumatic, anicteric, mucous membranes moist, PERRL, EOMI, pharynx normal, supple, no JVD Respiratory/Chest: lungs clear, normal breath sounds, no respiratory distress, no accessory muscle use Cardiovascular: normal rate, regular rhythm, no gallop/murmur, no JVD Abdomen: normal bowel sounds, soft, non tender, no organomegaly, non distended Genitourinary: other - no agarwal Extremities: other - wounds coverage Skin: no rash 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 Impression: Nonspecific, very small foci of abnormal signal at the dorsal heads of the first and fourth proximal phalanges. If there is evidence of active infection with ulcers in these 2 locations, osteomyelitis should be considered. Please correlate clinically. Microbiology Date/Time Source Procedure Growth Status 11/11/16 16:05 Blood Blood Culture - Final NO GROWTH AFTER 5 DAYS Complete 11/10/16 19:50 Nasal Nares MRSA Culture - Final NO METHICILLIN RESISTANT STAPH AUREUS... Complete 11/13/16 02:00 Foot Right Gram Stain - Final Complete 11/13/16 02:00 Aerobic Culture - Final Nicole Parapsilosis Complete 11/13/16 02:00 Foot Right Anaerobic Culture - Final NO ANAEROBES ISOLATED Complete Laboratory Tests Test 11/22/16 20:30 11/23/16 06:35 Sodium Level 128 mEQ/L (135-145) L 133 mEQ/L (135-145) L Potassium Level 5.6 mEQ/L (3.4-4.9) H 4.2 mEQ/L (3.4-4.9) Chloride Level 89 mEQ/L (98-107) L 94 mEQ/L (98-107) L Carbon Dioxide Level 20 mEQ/L (20-30) 20 mEQ/L (20-30) Anion Gap 19 (5-15) H 19 (5-15) H Blood Urea Nitrogen 86 mg/dL (7-23) H 45 mg/dL (7-23) #H Creatinine 9.5 mg/dL (0.7-1.2) H 6.0 mg/dL (0.7-1.2) H Estimat Glomerular Filtration Rate 6.8 mL/min (>60) 11.6 mL/min (>60) Glucose Level 138 mg/dL (74-106) H 133 mg/dL (74-106) H Calcium Level 7.3 mg/dL (8.6-10.2) L 8.0 mg/dL (8.6-10.2) L White Blood Count 5.1 K/UL (4.8-10.8) Red Blood Count 4.28 M/UL (4.70-6.10) L Hemoglobin 11.3 G/DL (14.2-18.0) L Hematocrit 37.4 % (42.0-52.0) L Mean Corpuscular Volume 87 FL (80-99) Mean Corpuscular Hemoglobin 26.5 PG (27.0-31.0) L Mean Corpuscular Hemoglobin Concent 30.3 G/DL (32.0-36.0) L Red Cell Distribution Width 20.3 % (11.6-14.8) H Platelet Count 238 K/UL (150-450) Mean Platelet Volume 8.3 FL (6.5-10.1) Neutrophils (%) (Auto) 37.8 % (45.0-75.0) L Lymphocytes (%) (Auto) 36.9 % (20.0-45.0) Monocytes (%) (Auto) 18.3 % (1.0-10.0) H Eosinophils (%) (Auto) 5.2 % (0.0-3.0) H Basophils (%) (Auto) 1.7 % (0.0-2.0) Random Vancomycin Level 15.8 ug/mL Current Medications Medications (Trade) Dose Ordered Sig/Zohaib Route PRN Reason Start Time Stop Time Status Last Admin Dose Admin Amlodipine Besylate (Norvasc) 5 mg DAILY ORAL 11/18/16 09:00 12/18/16 08:59 11/21/16 08:57 Cefepime HCl/ Dextrose (Maxipime/D5W) 55 ml @ 110 mls/hr Q24H IVPB 11/18/16 01:00 11/25/16 00:59 11/23/16 01:55 Chlorhexidine Gluconate (Ebony-Hex 2%) 1 applic QHS TOPIC 11/17/16 21:00 12/17/16 20:59 11/22/16 20:52 Cinacalcet (Sensipar) 30 mg DAILY ORAL 11/18/16 09:00 12/18/16 08:59 11/22/16 08:50 Clopidogrel Bisulfate (Plavix) 75 mg DAILY ORAL 11/18/16 09:00 12/18/16 08:59 11/23/16 08:59 Emtricitabine (Emtriva) 200 mg WeSa@1800 ORAL 11/17/16 18:00 12/17/16 17:59 11/21/16 21:06 Fluconazole (Diflucan) 200 mg DAILY ORAL 11/18/16 09:00 11/25/16 08:59 11/23/16 08:59 Hydromorphone HCl (Dilaudid) 0.5 mg Q4H PRN IVP Severe Pain (Pain Scale 7-10) 11/17/16 15:00 11/24/16 14:59 11/23/16 10:29 Lorazepam (Ativan) 0.5 mg QHS PRN ORAL Insomnia 11/17/16 21:00 11/24/16 20:59 Metronidazole (Flagyl) 500 mg Q8HR ORAL 11/17/16 22:00 11/24/16 21:59 11/23/16 05:32 Nateglinide (Starlix) 120 mg TIAC ORAL 11/17/16 16:30 12/17/16 16:29 11/22/16 16:59 Oxycodone HCl (Roxicodone) 5 mg Q4H PRN ORAL For Pain 4-6 11/17/16 14:30 11/24/16 14:29 11/23/16 11:02 Patient Own Medication (Patient's Own Med) 2 ea BID ORAL 11/17/16 18:00 12/17/16 17:59 11/23/16 09:00 Sevelamer Carbonate (Renvela) 1,600 mg TID ORAL 11/18/16 13:00 12/18/16 12:59 11/22/16 16:59 Sevelamer Carbonate 2400 mg 2,400 mg THREE TIMES A DAY GT 11/18/16 11:33 12/17/16 17:59 11/22/16 16:59 Sodium Chloride (Sodium Chloride 1000ml bag) 1,000 ml @ 500 mls/hr Q2H PRN IVLG sbp<90 during hd 11/24/16 12:44 12/24/16 12:43 Temazepam (Restoril) 15 mg BEDTIME ORAL 11/17/16 21:00 11/24/16 20:59 11/22/16 20:52 Tenofovir Disoproxil Fumarate (Viread) 300 mg Sa@1800 ORAL 11/17/16 21:00 12/17/16 20:59 11/17/16 21:43 Vancomycin HCl (Vanco rx to dose) 1 ea DAILY PRN MISC Per rx protocol 11/17/16 15:00 12/17/16 14:59 INOCENCIA DOS SANTOS Nov 23, 2016 14:39
--- NOTE | 2016-11-23 14:59 | Anethesia Preoperative Eval ---
Anesthesia Pre-op PMH/ROS General Date of Evaluation: Nov 23, 2016 Time of Evaluation: 14:00 ASA Score: ASA 4 Mallampati Score Class I : Soft palate, uvula, fauces, pillars visible Class II: Soft palate, uvula, fauces visible Class III: Soft palate, base of uvula visible Class IV: Only hard plate visible Mallampati Classification: Class II Allergies: Coded Allergies: HEPARIN (Verified Allergy, Severe, low platelets, 06/11/14) SULFA (SULFONAMIDE ANTIBIOTICS) (Verified Allergy, Severe, nephro toxic, ) ZOLPIDEM (Verified Allergy, Unknown, 05/03/16) MEROPENEM (Verified Adverse Reaction, Intermediate, 04/01/16) Nausea and vomiting Uncoded Allergies: pork products (Allergy, Severe, rashes, 06/11/14) Past Medical History Cardiovascular: Reports: HTN Gastrointestinal/Genitourinary: Reports: GERD Neurologic/Psychiatric: Reports: CVA Endocrine: Reports: DM Anesthesia Pre-op Phys. Exam Physician Exam Last Vital Signs Date Time Temp Pulse Resp B/P Pulse Ox O2 Delivery O2 Flow Rate FiO2 11/23/16 12:11 85 11/23/16 12:00 98.2 19 115/27 100 Nasal Cannula 11/23/16 07:43 2.0 11/23/16 05:45 28 Airway Exam Mallampati Score: Class II Anesthesia Pre-op A/P Labs Hematology Test 11/23/16 06:35 White Blood Count 5.1 K/UL (4.8-10.8) Red Blood Count 4.28 M/UL (4.70-6.10) L Hemoglobin 11.3 G/DL (14.2-18.0) L Hematocrit 37.4 % (42.0-52.0) L Mean Corpuscular Volume 87 FL (80-99) Mean Corpuscular Hemoglobin 26.5 PG (27.0-31.0) L Mean Corpuscular Hemoglobin Concent 30.3 G/DL (32.0-36.0) L Red Cell Distribution Width 20.3 % (11.6-14.8) H Platelet Count 238 K/UL (150-450) Mean Platelet Volume 8.3 FL (6.5-10.1) Neutrophils (%) (Auto) 37.8 % (45.0-75.0) L Lymphocytes (%) (Auto) 36.9 % (20.0-45.0) Monocytes (%) (Auto) 18.3 % (1.0-10.0) H Eosinophils (%) (Auto) 5.2 % (0.0-3.0) H Basophils (%) (Auto) 1.7 % (0.0-2.0) Chemistry Test 11/22/16 20:30 11/23/16 06:35 Sodium Level 128 mEQ/L (135-145) L 133 mEQ/L (135-145) L Potassium Level 5.6 mEQ/L (3.4-4.9) H 4.2 mEQ/L (3.4-4.9) Chloride Level 89 mEQ/L (98-107) L 94 mEQ/L (98-107) L Carbon Dioxide Level 20 mEQ/L (20-30) 20 mEQ/L (20-30) Anion Gap 19 (5-15) H 19 (5-15) H Blood Urea Nitrogen 86 mg/dL (7-23) H 45 mg/dL (7-23) #H Creatinine 9.5 mg/dL (0.7-1.2) H 6.0 mg/dL (0.7-1.2) H Estimat Glomerular Filtration Rate 6.8 mL/min (>60) 11.6 mL/min (>60) Glucose Level 138 mg/dL (74-106) H 133 mg/dL (74-106) H Calcium Level 7.3 mg/dL (8.6-10.2) L 8.0 mg/dL (8.6-10.2) L Luis Paz MD Nov 23, 2016 14:59
--- NOTE | 2016-11-23 15:00 | Immediate Post-Op Evaluation ---
Immediate Post-Op Evalulation Immediate Post-Op Evalulation Procedure: shakira Date of Evaluation: Nov 23, 2016 Time of Evaluation: 14:59 Nausea: No Vomiting: No Hydration Status: adequate Luis Paz MD Nov 23, 2016 15:00
--- NOTE | 2016-11-23 15:03 | Brief Operative Note ---
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 Eccentric regurgitant of mitral valve through prolapsed posterior leaflet consistent with severe MR Perforated vs cleft non-coronary cusp of the aortic valve leading to eccentric aortic regurgitation consistent with severe AR. Negative bubble study. Surgeon: Clifton esqueda MD, FACC Molder Bench: None Anesthesiologist: Yes Anesthesia: general, MAC, moderate sedation Specimen: none Complications: none Condition: stable Fluids: None Estimated Blood Loss: none Drains: none Packing: N/A Implant(s) used?: No CLIFTON ESQUEDA Nov 23, 2016 15:03
--- NOTE | 2016-11-23 16:23 | Cardiac Electrophysiology PN ---
Assessment/Plan Status Narrative MIAN: Side lobe artifact refuting right atrial mass, the mass seen in the right atrial cavity with MIAN is image artifact of amplatzer device implanted for PFO closure. Eccentric regurgitant of mitral valve through prolapsed posterior leaflet consistent with severe MR Perforated vs cleft non-coronary cusp of the aortic valve leading to eccentric aortic regurgitation consistent with severe AR. Negative bubble study. Assessment/Plan 1. Bradycardia with sinus arrest and junctional rhythm. Ruled out myocardial infarction. Resolved. 2. Hypertension, on Norvasc 5 mg daily. 3. PAF S/P ablation at [facility] in 2011. 4. Peripheral vascular disease, status post metatarsal amputation, on antibiotic with right foot ulcer. 5. HIV 6. Hepatitis C. 7. Larger right atrial echogenic material/mass. MIAN by Dr Reed showed no intracardiac thrombus. MIAN 07/03/16 at [facility] severe MR and AI but reported Right atrium was normal. 8. 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 10. Viability study 10/31/16 showed 10% nonviable myocardium. 11. End-stage renal disease, on hemodialysis. DW RN, and Dr Turcios Subjective Subjective MIAN today no intracardiac thrombus or mass. at bedside. Objective Last 24 Hour Vital Signs Date Time Temp Pulse Resp B/P Pulse Ox O2 Delivery O2 Flow Rate FiO2 11/23/16 15:53 77 11/23/16 15:40 97.4 78 18 140/43 100 Nasal Cannula 2.0 11/23/16 15:30 77 17 138/41 100 Nasal Cannula 2.0 11/23/16 15:20 78 18 139/42 100 Nasal Cannula 2.0 11/23/16 15:10 78 19 130/45 100 Nasal Cannula 2.0 11/23/16 15:00 77 20 130/35 100 Nasal Cannula 2.0 11/23/16 14:55 72 19 126/32 100 Nasal Cannula 2.0 11/23/16 14:50 97.4 75 18 125/36 100 Nasal Cannula 2.0 11/23/16 12:11 85 11/23/16 12:00 98.2 86 19 115/27 100 Nasal Cannula 11/23/16 10:59 97.9 11/23/16 09:00 74 119/43 11/23/16 08:00 97.9 87 19 102/32 100 Nasal Cannula 11/23/16 07:43 Nasal Cannula 2.0 11/23/16 07:42 100 Nasal Cannula 2.0 11/23/16 07:34 88 11/23/16 05:45 74 17 99 Full Face 28 11/23/16 04:00 77 11/23/16 03:59 98.1 81 21 119/43 100 11/23/16 03:05 76 16 98 Full Face 28 11/23/16 01:27 89 18 99 Full Face 28 11/23/16 00:00 98 11/22/16 23:58 98.3 80 19 132/34 95 Room Air 11/22/16 22:00 2.0 28 11/22/16 20:30 Nasal Cannula 2.0 11/22/16 20:06 97.9 82 20 129/37 95 Room Air 11/22/16 20:00 86 11/22/16 19:42 Room Air 11/22/16 19:41 96 Room Air Intake and Output 11/22/16 11/23/16 19:00 07:00 Intake Total 1570 ml Output Total 600 ml Balance 970 ml Intake Oral 1570 ml Output Urine Total 600 ml # Voids 3 1 Laboratory Tests Test 11/22/16 20:30 11/23/16 06:35 Sodium Level 128 mEQ/L (135-145) L 133 mEQ/L (135-145) L Potassium Level 5.6 mEQ/L (3.4-4.9) H 4.2 mEQ/L (3.4-4.9) Chloride Level 89 mEQ/L (98-107) L 94 mEQ/L (98-107) L Carbon Dioxide Level 20 mEQ/L (20-30) 20 mEQ/L (20-30) Anion Gap 19 (5-15) H 19 (5-15) H Blood Urea Nitrogen 86 mg/dL (7-23) H 45 mg/dL (7-23) #H Creatinine 9.5 mg/dL (0.7-1.2) H 6.0 mg/dL (0.7-1.2) H Estimat Glomerular Filtration Rate 6.8 mL/min (>60) 11.6 mL/min (>60) Glucose Level 138 mg/dL (74-106) H 133 mg/dL (74-106) H Calcium Level 7.3 mg/dL (8.6-10.2) L 8.0 mg/dL (8.6-10.2) L White Blood Count 5.1 K/UL (4.8-10.8) Red Blood Count 4.28 M/UL (4.70-6.10) L Hemoglobin 11.3 G/DL (14.2-18.0) L Hematocrit 37.4 % (42.0-52.0) L Mean Corpuscular Volume 87 FL (80-99) Mean Corpuscular Hemoglobin 26.5 PG (27.0-31.0) L Mean Corpuscular Hemoglobin Concent 30.3 G/DL (32.0-36.0) L Red Cell Distribution Width 20.3 % (11.6-14.8) H Platelet Count 238 K/UL (150-450) Mean Platelet Volume 8.3 FL (6.5-10.1) Neutrophils (%) (Auto) 37.8 % (45.0-75.0) L Lymphocytes (%) (Auto) 36.9 % (20.0-45.0) Monocytes (%) (Auto) 18.3 % (1.0-10.0) H Eosinophils (%) (Auto) 5.2 % (0.0-3.0) H Basophils (%) (Auto) 1.7 % (0.0-2.0) Random Vancomycin Level 15.8 ug/mL Objective HEAD AND NECK: No JVD. LUNGS: Decreased breath sounds.Dialysis Via left subclavian permcath. CARDIOVASCULAR: Shows regular S1 and S2. ABDOMEN: Soft. EXTREMITIES: No pitting edema. S/P right foot ulcer as well as left metatarsal amputation. CLIFTON KEARNEY Nov 23, 2016 16:23
--- NOTE | 2016-11-23 18:05 | Internal Med Progress Note ---
Subjective Date of Service: Nov 23, 2016 Physician Name Didier Jimenez Attending Physician Didier Jimenez Current Medications Medications (Trade) Dose Ordered Sig/Zohaib Route PRN Reason Start Time Stop Time Status Last Admin Dose Admin Amlodipine Besylate (Norvasc) 5 mg DAILY ORAL 11/18/16 09:00 12/18/16 08:59 11/21/16 08:57 Cefepime HCl/ Dextrose (Maxipime/D5W) 55 ml @ 110 mls/hr Q24H IVPB 11/24/16 01:00 11/30/16 00:59 Chlorhexidine Gluconate (Ebony-Hex 2%) 1 applic QHS TOPIC 11/17/16 21:00 12/17/16 20:59 11/22/16 20:52 Cinacalcet (Sensipar) 30 mg DAILY ORAL 11/18/16 09:00 12/18/16 08:59 11/22/16 08:50 Clopidogrel Bisulfate (Plavix) 75 mg DAILY ORAL 11/18/16 09:00 12/18/16 08:59 11/23/16 08:59 Emtricitabine (Emtriva) 200 mg WeSa@1800 ORAL 11/17/16 18:00 12/17/16 17:59 11/21/16 21:06 Fluconazole (Diflucan) 200 mg DAILY ORAL 11/24/16 09:00 11/30/16 08:59 Hydromorphone HCl (Dilaudid) 0.5 mg Q4H PRN IVP Severe Pain (Pain Scale 7-10) 11/17/16 15:00 11/24/16 14:59 11/23/16 15:47 Lorazepam (Ativan) 0.5 mg QHS PRN ORAL Insomnia 11/17/16 21:00 11/24/16 20:59 Metronidazole (Flagyl) 500 mg Q8HR ORAL 11/23/16 22:00 11/30/16 21:59 Nateglinide (Starlix) 120 mg TIAC ORAL 11/17/16 16:30 12/17/16 16:29 11/23/16 16:01 Oxycodone HCl (Roxicodone) 5 mg Q4H PRN ORAL For Pain 4-6 11/17/16 14:30 11/24/16 14:29 11/23/16 11:02 Patient Own Medication (Patient's Own Med) 2 ea BID ORAL 11/17/16 18:00 12/17/16 17:59 11/23/16 16:39 Sevelamer Carbonate (Renvela) 1,600 mg TID ORAL 11/18/16 13:00 12/18/16 12:59 11/23/16 16:41 Sevelamer Carbonate 2400 mg 2,400 mg THREE TIMES A DAY GT 11/18/16 11:33 12/17/16 17:59 11/23/16 16:41 Sodium Chloride 1,000 ml @ 500 mls/hr Q2H PRN IVLG sbp<90 during hd 11/24/16 12:44 12/24/16 12:43 Temazepam (Restoril) 15 mg BEDTIME ORAL 11/17/16 21:00 11/24/16 20:59 11/22/16 20:52 Tenofovir Disoproxil Fumarate (Viread) 300 mg Sa@1800 ORAL 11/17/16 21:00 12/17/16 20:59 11/17/16 21:43 Vancomycin HCl (Vanco rx to dose) 1 ea DAILY PRN MISC Per rx protocol 11/23/16 14:45 12/23/16 14:44 Allergies: Coded Allergies: HEPARIN (Verified Allergy, Severe, low platelets, 06/11/14) SULFA (SULFONAMIDE ANTIBIOTICS) (Verified Allergy, Severe, nephro toxic, ) ZOLPIDEM (Verified Allergy, Unknown, 05/03/16) MEROPENEM (Verified Adverse Reaction, Intermediate, 04/01/16) Nausea and vomiting Uncoded Allergies: pork products (Allergy, Severe, rashes, 06/11/14) ROS Limited/Unobtainable: No Constitutional: Reports: no symptoms HEENT: Reports: no symptoms Cardiovascular: Reports: no symptoms Respiratory: Reports: no symptoms Gastrointestinal/Abdominal: Reports: no symptoms Genitourinary: Reports: no symptoms Neurologic/Psychiatric: Reports: no symptoms Subjective 61 YO M admitted with shortness of breath, hypoglycemia and right diabetic foot ulcer. Now gangrene right foot with osteomyelitis. S/P Transesophageal echo on 11/23/16 Objective Last Vital Signs Date Time Temp Pulse Resp B/P Pulse Ox O2 Delivery O2 Flow Rate FiO2 11/23/16 16:17 97.4 11/23/16 15:53 77 11/23/16 15:40 18 140/43 100 Nasal Cannula 2.0 11/23/16 05:45 28 Laboratory Tests Test 11/22/16 20:30 11/23/16 06:35 Sodium Level 128 mEQ/L (135-145) L 133 mEQ/L (135-145) L Potassium Level 5.6 mEQ/L (3.4-4.9) H 4.2 mEQ/L (3.4-4.9) Chloride Level 89 mEQ/L (98-107) L 94 mEQ/L (98-107) L Carbon Dioxide Level 20 mEQ/L (20-30) 20 mEQ/L (20-30) Anion Gap 19 (5-15) H 19 (5-15) H Blood Urea Nitrogen 86 mg/dL (7-23) H 45 mg/dL (7-23) #H Creatinine 9.5 mg/dL (0.7-1.2) H 6.0 mg/dL (0.7-1.2) H Estimat Glomerular Filtration Rate 6.8 mL/min (>60) 11.6 mL/min (>60) Glucose Level 138 mg/dL (74-106) H 133 mg/dL (74-106) H Calcium Level 7.3 mg/dL (8.6-10.2) L 8.0 mg/dL (8.6-10.2) L White Blood Count 5.1 K/UL (4.8-10.8) Red Blood Count 4.28 M/UL (4.70-6.10) L Hemoglobin 11.3 G/DL (14.2-18.0) L Hematocrit 37.4 % (42.0-52.0) L Mean Corpuscular Volume 87 FL (80-99) Mean Corpuscular Hemoglobin 26.5 PG (27.0-31.0) L Mean Corpuscular Hemoglobin Concent 30.3 G/DL (32.0-36.0) L Red Cell Distribution Width 20.3 % (11.6-14.8) H Platelet Count 238 K/UL (150-450) Mean Platelet Volume 8.3 FL (6.5-10.1) Neutrophils (%) (Auto) 37.8 % (45.0-75.0) L Lymphocytes (%) (Auto) 36.9 % (20.0-45.0) Monocytes (%) (Auto) 18.3 % (1.0-10.0) H Eosinophils (%) (Auto) 5.2 % (0.0-3.0) H Basophils (%) (Auto) 1.7 % (0.0-2.0) Random Vancomycin Level 15.8 ug/mL Intake and Output 11/22/16 11/23/16 19:00 07:00 Intake Total 1570 ml Output Total 600 ml Balance 970 ml Intake Oral 1570 ml Output Urine Total 600 ml # Voids 3 1 Objective General Appearance: WD/WN, no apparent distress, alert EENT: PERRL/EOMI, normal ENT inspection, TMs normal Neck: non-tender, normal alignment, supple Cardiovascular: normal peripheral pulses, sinus bradycardia, regular rhythm, no gallop/murmur, no JVD Respiratory/Chest: chest wall non-tender, lungs clear, normal breath sounds, no respiratory distress, no accessory muscle use Abdomen: normal bowel sounds, non tender, soft, no organomegaly, no mass Extremities: right foot dressing clean and dry; normal range of motion 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 See podiatry consult note. cont vanco, cefepime and flagyl per ID (6) HIV disease Assessment & Plan: Continue HAART per ID (7) HTN (hypertension) Assessment & Plan: Continue metoprolol (8) Diabetes Assessment & Plan: Hypoglycemic on arrival. (9) ESRD (end stage renal disease) Assessment & Plan: Next Hemodialysis 11/24/16. See nephrology note-Dr Bianchi (10) Bradycardia Assessment & Plan: See cardiology consult. D/C metoprolol and clonidine. (11) Osteomyelitis of ankle or foot, right, acute Assessment & Plan: See podiatry note. (12) Gangrene of right foot (13) Right atrial mass Assessment & Plan: See cardiology note. 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 (16) Hyperkalemia Assessment & Plan: S/P Kayexalate last pm. Hemodialysis today -see nephrology note. Status: progressing DIDIER JIMENEZ Nov 23, 2016 18:05
[2016-11-23] MEDS: Dyna-Hex 2% Top Sol 8oz TOPIC SCH (21:05)
[2016-11-24] VITALS (7 sets, daily range): BP systolic 109–142; BP diastolic 31–72
[2016-11-24] MEDS: Cefepime HCl 0.5 GM in D5W 55 ML IVPB SCH (01:12)
--- NOTE | 2016-11-24 01:46 | Procedure Note ---
DATE OF PROCEDURE: 11/23/2016 TRANSESOPHAGEAL ECHOCARDIOGRAPHY REFERRING PHYSICIAN: Didier Thornton M.D. PREOPERATIVE DIAGNOSES: Right atrial mass, assessment of severity of mitral regurgitation and aortic regurgitation. POSTOPERATIVE FINDINGS: 1. Right atrial mass suspected with the transthoracic echocardiography study, it is actually side lobe artifact of Amplatzer device, which was implanted for PFO closure. 2. The eccentric regurgitant flow through the noncoronary cusp of aortic valve causing severe aortic regurgitation. 3. Prolapsed posterior leaflet mitral valve leading to eccentric regurgitant jet through the mitral valve consistent with severe mitral regurgitation. 4. Diastolic dominant velocity flow with interrogation of the left superior pulmonary vein. 5. No evidence of thrombus within the left atrial appendage. 6. Contrast study shows no evidence of cardiac shunt with patency of Amplatzer device. 7. Normal left ventricular systolic function. 8. No evidence of valvular vegetations. 9. Tip of the PermCath present in the right atrial cavity. DESCRIPTION OF PROCEDURE: After obtaining the informed consent, discussing the risks and benefits of the procedure with the patient and the patient's , Ms. Sheila Leone, and placing the informed consent in the chart, the patient was brought down to the GI lab of [facility] in fasting state. Initially, the bite block was inserted. The patient was in the left lateral decubitus position and was attached to the hospital monitor. In the presence of Anesthesiology and use of moderate sedation, the transesophageal echocardiography tube was advanced through the bite block and past the pharyngeal wall secured at the midesophageal area just about 35 cm from the incisor teeth. After review of the cardiac instruction obtaining the contrast study, the transesophageal echocardiography was removed. The patient tolerated the procedure well without developing any complications. CONCLUSION: No evidence of right atrial mass severe aortic and mitral regurgitation. Saturnino Reed M.D. DR: Jelly JOB#: [id number] CC:
[2016-11-24] MEDS: Hydromorphone 0.5mg/0.5ml inj IVP PRN ×5 (02:28→22:42)
[2016-11-24] MEDS: metroNIDAZOLE 500mg tab ORAL SCH ×3 (05:03→21:55)
[2016-11-24] MEDS: oxyCODONE 5mg IR tab ORAL PRN ×3 (05:16→16:45)
[2016-11-24 08:08] LABS: MEAN CORPUSCULAR HEMOGLOBIN 27.1 PG (27.0-31.0); MEAN CORPUSCULAR HGB CONC 31.2 G/DL (32.0-36.0); MEAN CORPUSCULAR VOLUME 87 FL (80-99); MEAN PLATELET VOLUME 8.3 FL (6.5-10.1); PLATELET COUNT 252 K/UL (150-450); RED BLOOD COUNT 4.01 M/UL (4.70-6.10); RED CELL DISTRIBUTION WIDTH 20.8 % (11.6-14.8); WHITE BLOOD COUNT 6.1 K/UL (4.8-10.8)
[2016-11-24 08:24] LABS: CALCIUM 8.1 mg/dL (8.6-10.2); CREATININE 8.4 mg/dL (0.7-1.2); GLOMERULAR FILTRATION RATE 7.9 mL/min (>60); POTASSIUM 5.4 mEQ/L (3.4-4.9)
[2016-11-24] MEDS: VIRACEPT ORAL SCH ×2 (09:30→18:13)
[2016-11-24] MEDS: Fluconazole 100mg tab ORAL SCH (09:31)
[2016-11-24] MEDS: Renvela 800mg Pkt ORAL SCH ×3 (09:31→18:12)
[2016-11-24] MEDS: Renvela 2400 mg pkt ORAL SCH ×3 (09:31→18:12)
[2016-11-24] MEDS: Sensipar 30mg Tab ORAL SCH (09:32)
[2016-11-24 10:30] LABS: ANISOCYTOSIS 1+; BAND NEUTROPHILS % (MANUAL) 2 % (0-8); BASOPHILS % (MANUAL) 0 % (0-2); EOSINOPHILS % (MANUAL) 5 % (0-3); HYPOCHROMASIA OCCASIONAL; LYMPHOCYTES % (MANUAL) 24 % (20-45); NEUTROPHILS % (MANUAL) 65 % (45-75); PLATELET ESTIMATE ADEQUATE; PLATELET MORPHOLOGY NORMAL; TOTAL CELLS COUNTED 100
--- NOTE | 2016-11-24 12:08 | Nephrology Progress Note ---
Assessment/Plan Problem List: (1) Osteomyelitis (2) ESRD (end stage renal disease) (3) HTN (hypertension) (4) Hepatitis C (5) Hypoglycemia (6) Vascular disease (7) Valvular cardiomyopathy (8) Vxhje-Wgzdg-Qejbl syndrome (9) Bradycardia (10) Hyperkalemia Plan Dialysis 11/22 via cath, and K bun creatinine reduced appropriately. , He -may have recirculation from catheter. Patient and refuse to use av fistula yet. HD 11/24 and reassess lab. . No fluid overload. His pain and infection could be monitored with amputations and earlier rehab--defer to pmd s/p bradycardia episode, bp nl, cardiology eval reviewed, MIAN reviewed. With OWR high risk of hemorrhage if anticoagulated--d/w Dr. Tate Subjective Constitutional: Reports: weakness HEENT: Reports: no symptoms Genitourinary: Reports: no symptoms Neurologic/Psychiatric: Reports: no symptoms Subjective foot pain Objective Objective Last 24 Hour Vital Signs Date Time Temp Pulse Resp B/P Pulse Ox O2 Delivery O2 Flow Rate FiO2 11/24/16 11:49 98.1 93 20 133/44 99 Room Air 11/24/16 09:00 92 140/50 11/24/16 08:24 98.4 11/24/16 08:00 93 11/24/16 07:34 98.4 92 20 140/50 97 Nasal Cannula 3.0 11/24/16 07:00 Nasal Cannula 2.0 11/24/16 07:00 100 Nasal Cannula 2.0 11/24/16 06:46 98.0 99 20 138/72 99 Room Air 11/24/16 04:00 86 11/24/16 04:00 98.0 99 20 138/72 99 Room Air 11/24/16 02:44 79 21 99 Full Face 11/24/16 01:30 77 22 99 Full Face 11/24/16 00:08 97.9 81 20 109/34 100 Room Air 11/24/16 00:00 80 11/23/16 22:06 2.0 11/23/16 20:00 79 11/23/16 20:00 98.0 82 20 123/35 100 Room Air 11/23/16 19:44 100 Nasal Cannula 2.0 11/23/16 19:44 Nasal Cannula 2.0 11/23/16 15:53 77 11/23/16 15:40 97.4 78 18 140/43 100 Nasal Cannula 2.0 11/23/16 15:30 77 17 138/41 100 Nasal Cannula 2.0 11/23/16 15:20 78 18 139/42 100 Nasal Cannula 2.0 11/23/16 15:10 78 19 130/45 100 Nasal Cannula 2.0 11/23/16 15:00 77 20 130/35 100 Nasal Cannula 2.0 11/23/16 14:55 72 19 126/32 100 Nasal Cannula 2.0 11/23/16 14:50 97.4 75 18 125/36 100 Nasal Cannula 2.0 11/23/16 12:11 85 Intake and Output 11/23/16 11/24/16 19:00 07:00 Intake Total 667.416 ml 50 ml Balance 667.416 ml 50 ml IV Total 667.416 ml 50 ml Laboratory Tests 11/24/16 06:55: White Blood Count 6.1, Red Blood Count 4.01L, Hemoglobin 10.9L, Hematocrit 34.9L , Mean Corpuscular Volume 87, Mean Corpuscular Hemoglobin 27.1, Mean Corpuscular Hemoglobin Concent 31.2L, Red Cell Distribution Width 20.8H, Platelet Count 252, Mean Platelet Volume 8.3, Neutrophils (%) (Auto) , Lymphocytes (%) (Auto) , Monocytes (%) (Auto) , Eosinophils (%) (Auto) , Basophils (%) (Auto) , Differential Total Cells Counted 100, Neutrophils % ( Manual) 65, Lymphocytes % (Manual) 24, Monocytes % (Manual) 4, Eosinophils % ( Manual) 5H, Basophils % (Manual) 0, Band Neutrophils 2, Platelet Estimate Adequate, Platelet Morphology Normal, Red Blood Cell Morphology , Hypochromasia Occasional, Anisocytosis 1+, Sodium Level 133L, Potassium Level 5.4H, Chloride Level 95L, Carbon Dioxide Level 21, Anion Gap 17H, Blood Urea Nitrogen 84#H, Creatinine 8.4H, Estimat Glomerular Filtration Rate 7.9, Glucose Level 141H, Calcium Level 8.1L Height (Feet): 6 Height (Inches): 6.00 Weight (Pounds): 182 General Appearance: no apparent distress, alert EENT: normal ENT inspection Neck: normal alignment Cardiovascular: normal rate, regular rhythm Respiratory/Chest: lungs clear Abdomen: non tender Extremities: other - no edema , dry dressings feet DURGA MORE Nov 24, 2016 12:08
--- NOTE | 2016-11-24 13:05 | Pulmonology Progress Note ---
Assessment/Plan Assessment/Plan 1. Sleep apnea. 2. Sepsis with shock. 3. Right foot osteomyelitis. 4. Chronic hepatitis. 5. OslerWeberRendu syndrome (hemorrhagic telangiectasia). 6. End-stage renal disease, on dialysis. 7. Diabetic autonomic neuropathy. 8. History of hypertension. 9. Human immunodeficiency virus. encourage bipap he has hemorrhagic telangectasia and will bleed with anticoagulants HD per renal for today supplemental o2 as well continue abs for now. Current Medications Medications (Trade) Dose Ordered Sig/Zohaib Route PRN Reason Start Time Stop Time Status Last Admin Dose Admin Amlodipine Besylate (Norvasc) 5 mg DAILY ORAL 11/18/16 09:00 12/18/16 08:59 11/18/16 08:30 Cefepime HCl/ Dextrose (Maxipime/D5W) 55 ml @ 110 mls/hr Q24H IVPB 11/18/16 01:00 11/25/16 00:59 11/18/16 00:07 Chlorhexidine Gluconate (Ebony-Hex 2%) 1 applic QHS TOPIC 11/17/16 21:00 12/17/16 20:59 11/17/16 20:56 Cinacalcet (Sensipar) 30 mg DAILY ORAL 11/18/16 09:00 12/18/16 08:59 11/18/16 08:30 Clopidogrel Bisulfate (Plavix) 75 mg DAILY ORAL 11/18/16 09:00 12/18/16 08:59 11/18/16 08:29 Emtricitabine (Emtriva) 200 mg WeSa@1800 ORAL 11/17/16 18:00 12/17/16 17:59 11/17/16 17:30 Fluconazole (Diflucan) 200 mg DAILY ORAL 11/18/16 09:00 11/25/16 08:59 11/18/16 08:30 Hydromorphone HCl (Dilaudid) 0.5 mg Q4H PRN IVP Severe Pain (Pain Scale 7-10) 11/17/16 15:00 11/24/16 14:59 11/18/16 17:18 Lorazepam (Ativan) 0.5 mg QHS PRN ORAL Insomnia 11/17/16 21:00 11/24/16 20:59 Metronidazole (Flagyl) 500 mg Q8HR ORAL 11/17/16 22:00 11/24/16 21:59 11/18/16 13:43 Nateglinide (Starlix) 120 mg TIAC ORAL 11/17/16 16:30 12/17/16 16:29 11/18/16 17:18 Oxycodone HCl (Roxicodone) 5 mg Q4H PRN ORAL For Pain 4-6 11/17/16 14:30 11/24/16 14:29 11/18/16 08:31 Patient Own Medication (Patient's Own Med) 2 ea BID ORAL 11/17/16 18:00 12/17/16 17:59 11/17/16 18:15 Sevelamer Carbonate (Renvela) 2,400 mg THREE TIMES A DAY GT 11/18/16 11:33 12/17/16 17:59 11/18/16 17:18 Sevelamer Carbonate 1600 mg 1,600 mg TID ORAL 11/18/16 13:00 12/18/16 12:59 11/18/16 17:18 Sodium Chloride (Sodium Chloride 1000ml bag) 1,000 ml @ 500 mls/hr Q2H PRN IVLG sbp<90 during hd 11/19/16 11:20 12/19/16 11:19 Temazepam (Restoril) 15 mg BEDTIME ORAL 11/17/16 21:00 11/24/16 20:59 11/17/16 20:56 Tenofovir Disoproxil Fumarate (Viread) 300 mg Sa@1800 ORAL 11/17/16 21:00 12/17/16 20:59 11/17/16 21:43 Vancomycin HCl (Vanco rx to dose) 1 ea DAILY PRN MISC Per rx protocol 11/17/16 15:00 12/17/16 14:59 Subjective Constitutional: Reports: no symptoms HEENT: Repors: no symptoms Gastrointestinal/Abdominal: Reports: no symptoms Skin: Reports: no symptoms Endocrine: Reports: no symptoms Allergies: Coded Allergies: HEPARIN (Verified Allergy, Severe, low platelets, 06/11/14) SULFA (SULFONAMIDE ANTIBIOTICS) (Verified Allergy, Severe, nephro toxic, ) ZOLPIDEM (Verified Allergy, Unknown, 05/03/16) MEROPENEM (Verified Adverse Reaction, Intermediate, 04/01/16) Nausea and vomiting Uncoded Allergies: pork products (Allergy, Severe, rashes, 06/11/14) Subjective doing well today MIAN negative for mass remains on o2 no events using bipap at night no cp nv or bleeding for HD today no fever tolerating po Objective Last 24 Hour Vital Signs Date Time Temp Pulse Resp B/P Pulse Ox O2 Delivery O2 Flow Rate FiO2 11/24/16 11:49 98.1 93 20 133/44 99 Room Air 11/24/16 09:00 90 11/24/16 09:00 92 140/50 11/24/16 08:24 98.4 11/24/16 08:00 93 11/24/16 07:34 98.4 92 20 140/50 97 Nasal Cannula 3.0 11/24/16 07:00 Nasal Cannula 2.0 11/24/16 07:00 100 Nasal Cannula 2.0 11/24/16 06:46 98.0 99 20 138/72 99 Room Air 11/24/16 04:00 86 11/24/16 04:00 98.0 99 20 138/72 99 Room Air 11/24/16 02:44 79 21 99 Full Face 28 11/24/16 01:30 77 22 99 Full Face 28 11/24/16 00:08 97.9 81 20 109/34 100 Room Air 11/24/16 00:00 80 11/23/16 22:06 2.0 28 11/23/16 20:00 79 11/23/16 20:00 98.0 82 20 123/35 100 Room Air 11/23/16 19:44 100 Nasal Cannula 2.0 11/23/16 19:44 Nasal Cannula 2.0 11/23/16 15:53 77 11/23/16 15:40 97.4 78 18 140/43 100 Nasal Cannula 2.0 11/23/16 15:30 77 17 138/41 100 Nasal Cannula 2.0 11/23/16 15:20 78 18 139/42 100 Nasal Cannula 2.0 11/23/16 15:10 78 19 130/45 100 Nasal Cannula 2.0 11/23/16 15:00 77 20 130/35 100 Nasal Cannula 2.0 11/23/16 14:55 72 19 126/32 100 Nasal Cannula 2.0 11/23/16 14:50 97.4 75 18 125/36 100 Nasal Cannula 2.0 Intake and Output 11/23/16 11/24/16 19:00 07:00 Intake Total 667.416 ml 50 ml Balance 667.416 ml 50 ml IV Total 667.416 ml 50 ml General Appearance: WD/WN HEENT: anicteric Respiratory/Chest: normal breath sounds, no respiratory distress Cardiovascular: normal rate, regular rhythm Abdomen: no organomegaly, non distended Skin: no rash, no lesions Neurologic/Psychiatric: no motor/sensory deficits, abnormal gait, oriented x 3 , normal mood/affect Lymphatic: no groin adenopathy Musculoskeletal: normal muscle bulk Laboratory Tests 11/24/16 06:55: White Blood Count 6.1, Red Blood Count 4.01L, Hemoglobin 10.9L, Hematocrit 34.9L , Mean Corpuscular Volume 87, Mean Corpuscular Hemoglobin 27.1, Mean Corpuscular Hemoglobin Concent 31.2L, Red Cell Distribution Width 20.8H, Platelet Count 252, Mean Platelet Volume 8.3, Neutrophils (%) (Auto) , Lymphocytes (%) (Auto) , Monocytes (%) (Auto) , Eosinophils (%) (Auto) , Basophils (%) (Auto) , Differential Total Cells Counted 100, Neutrophils % ( Manual) 65, Lymphocytes % (Manual) 24, Monocytes % (Manual) 4, Eosinophils % ( Manual) 5H, Basophils % (Manual) 0, Band Neutrophils 2, Platelet Estimate Adequate, Platelet Morphology Normal, Red Blood Cell Morphology , Hypochromasia Occasional, Anisocytosis 1+, Sodium Level 133L, Potassium Level 5.4H, Chloride Level 95L, Carbon Dioxide Level 21, Anion Gap 17H, Blood Urea Nitrogen 84#H, Creatinine 8.4H, Estimat Glomerular Filtration Rate 7.9, Glucose Level 141H, Calcium Level 8.1L Current Medications Medications (Trade) Dose Ordered Sig/Zohaib Route PRN Reason Start Time Stop Time Status Last Admin Dose Admin Amlodipine Besylate (Norvasc) 5 mg DAILY ORAL 11/18/16 09:00 12/18/16 08:59 11/21/16 08:57 Cefepime HCl/ Dextrose (Maxipime/D5W) 55 ml @ 110 mls/hr Q24H IVPB 11/24/16 01:00 11/30/16 00:59 11/24/16 01:12 Chlorhexidine Gluconate (Ebony-Hex 2%) 1 applic QHS TOPIC 11/17/16 21:00 12/17/16 20:59 11/23/16 21:05 Cinacalcet (Sensipar) 30 mg DAILY ORAL 11/18/16 09:00 12/18/16 08:59 11/24/16 09:32 Clopidogrel Bisulfate (Plavix) 75 mg DAILY ORAL 11/18/16 09:00 12/18/16 08:59 11/24/16 09:30 Emtricitabine (Emtriva) 200 mg WeSa@1800 ORAL 11/17/16 18:00 12/17/16 17:59 11/21/16 21:06 Fluconazole (Diflucan) 200 mg DAILY ORAL 11/24/16 09:00 11/30/16 08:59 11/24/16 09:31 Hydromorphone HCl (Dilaudid) 0.5 mg Q4H PRN IVP Severe Pain (Pain Scale 7-10) 11/17/16 15:00 11/24/16 14:59 11/24/16 07:54 Lorazepam (Ativan) 0.5 mg QHS PRN ORAL Insomnia 11/17/16 21:00 11/24/16 20:59 Metronidazole (Flagyl) 500 mg Q8HR ORAL 11/23/16 22:00 11/30/16 21:59 11/24/16 05:03 Nateglinide (Starlix) 120 mg TIAC ORAL 11/17/16 16:30 12/17/16 16:29 11/24/16 11:47 Oxycodone HCl (Roxicodone) 5 mg Q4H PRN ORAL For Pain 4-6 11/17/16 14:30 11/24/16 14:29 11/24/16 09:32 Patient Own Medication (Patient's Own Med) 2 ea BID ORAL 11/17/16 18:00 12/17/16 17:59 11/24/16 09:30 Sevelamer Carbonate (Renvela) 2,400 mg THREE TIMES A DAY ORAL 11/24/16 08:32 12/17/16 17:59 11/24/16 09:31 Sevelamer Carbonate 1600 mg 1,600 mg TID ORAL 11/18/16 13:00 12/18/16 12:59 11/24/16 09:31 Sodium Chloride 1,000 ml @ 500 mls/hr Q2H PRN IVLG sbp<90 during hd 11/24/16 12:44 12/24/16 12:43 Temazepam (Restoril) 15 mg BEDTIME ORAL 11/17/16 21:00 11/24/16 20:59 11/23/16 21:05 Tenofovir Disoproxil Fumarate (Viread) 300 mg Sa@1800 ORAL 11/17/16 21:00 12/17/16 20:59 11/17/16 21:43 Vancomycin HCl (Vanco rx to dose) 1 ea DAILY PRN MISC Per rx protocol 11/23/16 14:45 12/23/16 14:44 GLADYS ELDER DO Nov 24, 2016 13:05
[2016-11-24] MEDS ORDERED: Tubing IV Secondary IV ONE (13:51)
[2016-11-24] MEDS ORDERED: NS 275ml ONE (13:51)
--- NOTE | 2016-11-24 15:42 | Internal Med Progress Note ---
Subjective Date of Service: Nov 24, 2016 Physician Name Gisele Thornton Attending Physician Gisele Thornton Current Medications Medications (Trade) Dose Ordered Sig/Zohaib Route PRN Reason Start Time Stop Time Status Last Admin Dose Admin Amlodipine Besylate (Norvasc) 5 mg DAILY ORAL 11/18/16 09:00 12/18/16 08:59 11/21/16 08:57 Cefepime HCl/ Dextrose (Maxipime/D5W) 55 ml @ 110 mls/hr Q24H IVPB 11/24/16 01:00 11/30/16 00:59 11/24/16 01:12 Chlorhexidine Gluconate (Ebony-Hex 2%) 1 applic QHS TOPIC 11/17/16 21:00 12/17/16 20:59 11/23/16 21:05 Cinacalcet (Sensipar) 30 mg DAILY ORAL 11/18/16 09:00 12/18/16 08:59 11/24/16 09:32 Clopidogrel Bisulfate (Plavix) 75 mg DAILY ORAL 11/18/16 09:00 12/18/16 08:59 11/24/16 09:30 Emtricitabine (Emtriva) 200 mg WeSa@1800 ORAL 11/17/16 18:00 12/17/16 17:59 11/21/16 21:06 Fluconazole (Diflucan) 200 mg DAILY ORAL 11/24/16 09:00 11/30/16 08:59 11/24/16 09:31 Lorazepam (Ativan) 0.5 mg QHS PRN ORAL Insomnia 11/17/16 21:00 11/24/16 20:59 Metronidazole (Flagyl) 500 mg Q8HR ORAL 11/23/16 22:00 11/30/16 21:59 11/24/16 14:34 Nateglinide (Starlix) 120 mg TIAC ORAL 11/17/16 16:30 12/17/16 16:29 11/24/16 11:47 Patient Own Medication (Patient's Own Med) 2 ea BID ORAL 11/17/16 18:00 12/17/16 17:59 11/24/16 09:30 Sevelamer Carbonate (Renvela) 2,400 mg THREE TIMES A DAY ORAL 11/24/16 08:32 12/17/16 17:59 11/24/16 14:34 Sevelamer Carbonate 1600 mg 1,600 mg TID ORAL 11/18/16 13:00 12/18/16 12:59 11/24/16 14:34 Sodium Chloride 1,000 ml @ 500 mls/hr Q2H PRN IVLG sbp<90 during hd 11/24/16 12:44 12/24/16 12:43 Temazepam (Restoril) 15 mg BEDTIME ORAL 11/17/16 21:00 11/24/16 20:59 11/23/16 21:05 Tenofovir Disoproxil Fumarate (Viread) 300 mg Sa@1800 ORAL 11/17/16 21:00 12/17/16 20:59 11/17/16 21:43 Vancomycin HCl (Vanco rx to dose) 1 ea DAILY PRN MISC Per rx protocol 11/23/16 14:45 12/23/16 14:44 Allergies: Coded Allergies: HEPARIN (Verified Allergy, Severe, low platelets, 06/11/14) SULFA (SULFONAMIDE ANTIBIOTICS) (Verified Allergy, Severe, nephro toxic, ) ZOLPIDEM (Verified Allergy, Unknown, 05/03/16) MEROPENEM (Verified Adverse Reaction, Intermediate, 04/01/16) Nausea and vomiting Uncoded Allergies: pork products (Allergy, Severe, rashes, 06/11/14) ROS Limited/Unobtainable: No Constitutional: Reports: no symptoms HEENT: Reports: no symptoms Cardiovascular: Reports: no symptoms Respiratory: Reports: no symptoms Gastrointestinal/Abdominal: Reports: no symptoms Genitourinary: Reports: no symptoms Neurologic/Psychiatric: Reports: no symptoms Subjective 61 YO M admitted with shortness of breath, hypoglycemia and right diabetic foot ulcer. Now gangrene right foot with osteomyelitis. S/P Transesophageal echo on 11/23/16 Objective Last Vital Signs Date Time Temp Pulse Resp B/P Pulse Ox O2 Delivery O2 Flow Rate FiO2 11/24/16 15:31 97.5 85 20 137/31 97 Room Air 11/24/16 07:34 3.0 11/24/16 07:00 28 Laboratory Tests Test 11/24/16 06:55 White Blood Count 6.1 K/UL (4.8-10.8) Red Blood Count 4.01 M/UL (4.70-6.10) L Hemoglobin 10.9 G/DL (14.2-18.0) L Hematocrit 34.9 % (42.0-52.0) L Mean Corpuscular Volume 87 FL (80-99) Mean Corpuscular Hemoglobin 27.1 PG (27.0-31.0) Mean Corpuscular Hemoglobin Concent 31.2 G/DL (32.0-36.0) L Red Cell Distribution Width 20.8 % (11.6-14.8) H Platelet Count 252 K/UL (150-450) Mean Platelet Volume 8.3 FL (6.5-10.1) Neutrophils (%) (Auto) % (45.0-75.0) Lymphocytes (%) (Auto) % (20.0-45.0) Monocytes (%) (Auto) % (1.0-10.0) Eosinophils (%) (Auto) % (0.0-3.0) Basophils (%) (Auto) % (0.0-2.0) Differential Total Cells Counted 100 Neutrophils % (Manual) 65 % (45-75) Lymphocytes % (Manual) 24 % (20-45) Monocytes % (Manual) 4 % (1-10) Eosinophils % (Manual) 5 % (0-3) H Basophils % (Manual) 0 % (0-2) Band Neutrophils 2 % (0-8) Platelet Estimate Adequate Platelet Morphology Normal Red Blood Cell Morphology Hypochromasia Occasional Anisocytosis 1+ Sodium Level 133 mEQ/L (135-145) L Potassium Level 5.4 mEQ/L (3.4-4.9) H Chloride Level 95 mEQ/L (98-107) L Carbon Dioxide Level 21 mEQ/L (20-30) Anion Gap 17 (5-15) H Blood Urea Nitrogen 84 mg/dL (7-23) #H Creatinine 8.4 mg/dL (0.7-1.2) H Estimat Glomerular Filtration Rate 7.9 mL/min (>60) Glucose Level 141 mg/dL (74-106) H Calcium Level 8.1 mg/dL (8.6-10.2) L Intake and Output 11/23/16 11/24/16 19:00 07:00 Intake Total 667.416 ml 50 ml Balance 667.416 ml 50 ml IV Total 667.416 ml 50 ml Objective General Appearance: WD/WN, no apparent distress, alert EENT: PERRL/EOMI, normal ENT inspection, TMs normal Neck: non-tender, normal alignment, supple Cardiovascular: normal peripheral pulses, sinus bradycardia, regular rhythm, no gallop/murmur, no JVD Respiratory/Chest: chest wall non-tender, lungs clear, normal breath sounds, no respiratory distress, no accessory muscle use Abdomen: normal bowel sounds, non tender, soft, no organomegaly, no mass Extremities: right foot dressing clean and dry; normal range of motion 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 See podiatry consult note. cont vanco, cefepime and flagyl per ID (6) HIV disease Assessment & Plan: Continue HAART per ID (7) HTN (hypertension) Assessment & Plan: Continue metoprolol (8) Diabetes Assessment & Plan: Hypoglycemic on arrival. (9) ESRD (end stage renal disease) Assessment & Plan: Hemodialysis today 11/24/16. See nephrology note-Dr Bianchi (10) Bradycardia Assessment & Plan: See cardiology consult. D/C metoprolol and clonidine. (11) Osteomyelitis of ankle or foot, right, acute Assessment & Plan: See podiatry note. (12) Gangrene of right foot (13) Right atrial mass Assessment & Plan: See cardiology note. S/P Transesophageal echo 11/23/16 (14) Jceof-Wgksh-Zjjeg syndrome (15) Peripheral vascular disease Assessment & Plan: See vascular surgery note. (16) Hyperkalemia Assessment & Plan: Hemodialysis today -see nephrology note. Status: susana TONYGISELE Nov 24, 2016 15:42
--- NOTE | 2016-11-24 16:01 | Cardiac Electrophysiology PN ---
Assessment/Plan Status Narrative MIAN: Side lobe artifact refuting right atrial mass, the mass seen in the right atrial cavity with MIAN is image artifact of amplatzer device implanted for PFO closure. Eccentric regurgitant of mitral valve through prolapsed posterior leaflet consistent with severe MR Perforated vs cleft non-coronary cusp of the aortic valve leading to eccentric aortic regurgitation consistent with severe AR. Negative bubble study. Assessment/Plan 1. Bradycardia with sinus arrest and junctional rhythm. Ruled out myocardial infarction. Resolved. 2. Hypertension, on Norvasc 5 mg daily. 3. PAF S/P ablation at [facility] in 2011. 4. Peripheral vascular disease, status post metatarsal amputation, on antibiotic with right foot ulcer. 5. HIV 6. Hepatitis C. 7. Larger right atrial echogenic material/mass. MIAN by Dr Reed showed no intracardiac thrombus. MIAN 07/03/16 at [facility] severe MR and AI but reported Right atrium was normal. 8. 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 10. Viability study 10/31/16 showed 10% nonviable myocardium. 11. End-stage renal disease, on hemodialysis. DW RN Subjective Subjective MIAN showed no intracardiac thrombus or mass. RN at bedside.Awaiting dialysis again today. Objective Last 24 Hour Vital Signs Date Time Temp Pulse Resp B/P Pulse Ox O2 Delivery O2 Flow Rate FiO2 11/24/16 15:31 97.5 85 20 137/31 97 Room Air 11/24/16 11:49 98.1 93 20 133/44 99 Room Air 11/24/16 09:00 90 11/24/16 09:00 92 140/50 11/24/16 08:24 98.4 11/24/16 08:00 93 11/24/16 07:34 98.4 92 20 140/50 97 Nasal Cannula 3.0 11/24/16 07:00 Nasal Cannula 2.0 28 11/24/16 07:00 100 Nasal Cannula 2.0 11/24/16 06:46 98.0 99 20 138/72 99 Room Air 11/24/16 04:00 86 11/24/16 04:00 98.0 99 20 138/72 99 Room Air 11/24/16 02:44 79 21 99 Full Face 28 11/24/16 01:30 77 22 99 Full Face 28 11/24/16 00:08 97.9 81 20 109/34 100 Room Air 11/24/16 00:00 80 11/23/16 22:06 2.0 28 11/23/16 20:00 79 11/23/16 20:00 98.0 82 20 123/35 100 Room Air 11/23/16 19:44 100 Nasal Cannula 2.0 11/23/16 19:44 Nasal Cannula 2.0 Intake and Output 11/23/16 11/24/16 19:00 07:00 Intake Total 667.416 ml 50 ml Balance 667.416 ml 50 ml IV Total 667.416 ml 50 ml Laboratory Tests Test 11/24/16 06:55 White Blood Count 6.1 K/UL (4.8-10.8) Red Blood Count 4.01 M/UL (4.70-6.10) L Hemoglobin 10.9 G/DL (14.2-18.0) L Hematocrit 34.9 % (42.0-52.0) L Mean Corpuscular Volume 87 FL (80-99) Mean Corpuscular Hemoglobin 27.1 PG (27.0-31.0) Mean Corpuscular Hemoglobin Concent 31.2 G/DL (32.0-36.0) L Red Cell Distribution Width 20.8 % (11.6-14.8) H Platelet Count 252 K/UL (150-450) Mean Platelet Volume 8.3 FL (6.5-10.1) Neutrophils (%) (Auto) % (45.0-75.0) Lymphocytes (%) (Auto) % (20.0-45.0) Monocytes (%) (Auto) % (1.0-10.0) Eosinophils (%) (Auto) % (0.0-3.0) Basophils (%) (Auto) % (0.0-2.0) Differential Total Cells Counted 100 Neutrophils % (Manual) 65 % (45-75) Lymphocytes % (Manual) 24 % (20-45) Monocytes % (Manual) 4 % (1-10) Eosinophils % (Manual) 5 % (0-3) H Basophils % (Manual) 0 % (0-2) Band Neutrophils 2 % (0-8) Platelet Estimate Adequate Platelet Morphology Normal Red Blood Cell Morphology Hypochromasia Occasional Anisocytosis 1+ Sodium Level 133 mEQ/L (135-145) L Potassium Level 5.4 mEQ/L (3.4-4.9) H Chloride Level 95 mEQ/L (98-107) L Carbon Dioxide Level 21 mEQ/L (20-30) Anion Gap 17 (5-15) H Blood Urea Nitrogen 84 mg/dL (7-23) #H Creatinine 8.4 mg/dL (0.7-1.2) H Estimat Glomerular Filtration Rate 7.9 mL/min (>60) Glucose Level 141 mg/dL (74-106) H Calcium Level 8.1 mg/dL (8.6-10.2) L Objective HEAD AND NECK: No JVD. LUNGS: Decreased breath sounds.Dialysis Via left subclavian permcath. CARDIOVASCULAR: Shows regular S1 and S2. ABDOMEN: Soft. EXTREMITIES: No pitting edema. S/P right foot ulcer as well as left metatarsal amputation. CLIFTON KEARNEY Nov 24, 2016 16:00
[2016-11-24] MEDS: Emtricitabine 200mg tab ORAL SCH (18:13)
[2016-11-24 19:34] LABS: BASOPHILS % (AUTO) 1.5 % (0.0-2.0); LYMPHOCYTES % (AUTO) 27.6 % (20.0-45.0); MEAN CORPUSCULAR HEMOGLOBIN 27.1 PG (27.0-31.0); MEAN CORPUSCULAR HGB CONC 31.4 G/DL (32.0-36.0); MEAN CORPUSCULAR VOLUME 86 FL (80-99); MEAN PLATELET VOLUME 7.5 FL (6.5-10.1); MONOCYTES % (AUTO) 18.2 % (1.0-10.0); NEUTROPHILS % (AUTO) 47.6 % (45.0-75.0); PLATELET COUNT 245 K/UL (150-450); RED BLOOD COUNT 3.95 M/UL (4.70-6.10); RED CELL DISTRIBUTION WIDTH 20.5 % (11.6-14.8); WHITE BLOOD COUNT 6.5 K/UL (4.8-10.8)
[2016-11-24 19:55] LABS: CALCIUM 7.8 mg/dL (8.6-10.2); GLOMERULAR FILTRATION RATE 7.3 mL/min (>60)
[2016-11-24 20:03] LABS: POTASSIUM 6.1 mEQ/L (3.4-4.9)
[2016-11-24] MEDS: Dyna-Hex 2% Top Sol 8oz TOPIC SCH (20:44)
[2016-11-25] VITALS (7 sets, daily range): BP systolic 120–142; BP diastolic 35–52
[2016-11-25 00:12] LABS: CALCIUM 8.3 mg/dL (8.6-10.2); CREATININE 6.2 mg/dL (0.7-1.2); GLOMERULAR FILTRATION RATE 11.2 mL/min (>60); POTASSIUM 4.1 mEQ/L (3.4-4.9)
[2016-11-25] MEDS: Cefepime HCl 0.5 GM in D5W 55 ML IVPB SCH (00:13)
[2016-11-25] MEDS: Hydromorphone 0.5mg/0.5ml inj IVP PRN ×4 (02:52→21:23)
[2016-11-25] MEDS: metroNIDAZOLE 500mg tab ORAL SCH ×3 (06:14→21:23)
[2016-11-25 07:06] LABS: BASOPHILS % (AUTO) 1.3 % (0.0-2.0); EOSINOPHILS % (AUTO) 5.3 % (0.0-3.0); LYMPHOCYTES % (AUTO) 24.2 % (20.0-45.0); MEAN CORPUSCULAR HEMOGLOBIN 26.2 PG (27.0-31.0); MEAN CORPUSCULAR HGB CONC 30.6 G/DL (32.0-36.0); MEAN CORPUSCULAR VOLUME 86 FL (80-99); MEAN PLATELET VOLUME 7.4 FL (6.5-10.1); NEUTROPHILS % (AUTO) 53.1 % (45.0-75.0); PLATELET COUNT 261 K/UL (150-450); RED BLOOD COUNT 4.02 M/UL (4.70-6.10); RED CELL DISTRIBUTION WIDTH 20.3 % (11.6-14.8)
[2016-11-25 07:36] LABS: CALCIUM 8.3 mg/dL (8.6-10.2); CREATININE 7.5 mg/dL (0.7-1.2); POTASSIUM 5.2 mEQ/L (3.4-4.9)
[2016-11-25] MEDS: Renvela 2400 mg pkt ORAL SCH ×3 (09:00→17:06)
[2016-11-25] MEDS: Sensipar 30mg Tab ORAL SCH (09:25)
[2016-11-25] MEDS: Fluconazole 100mg tab ORAL SCH (09:25)
[2016-11-25] MEDS: VIRACEPT ORAL SCH ×2 (09:26→17:11)
[2016-11-25] MEDS: Renvela 800mg Pkt ORAL SCH ×4 (09:27→17:06)
--- NOTE | 2016-11-25 11:18 | Pulmonology Progress Note ---
Assessment/Plan Assessment/Plan 1. Sleep apnea. 2. Sepsis with shock. 3. Right foot osteomyelitis. 4. Chronic hepatitis. 5. OslerWeberRendu syndrome (hemorrhagic telangiectasia). 6. End-stage renal disease, on dialysis. 7. Diabetic autonomic neuropathy. 8. History of hypertension. 9. Human immunodeficiency virus. encourage bipap he has hemorrhagic telangectasia and will bleed with anticoagulants HD per guillermina prn nebs wound care to LE supplemental o2 as well continue abs for now. Current Medications Medications (Trade) Dose Ordered Sig/Zohaib Route PRN Reason Start Time Stop Time Status Last Admin Dose Admin Amlodipine Besylate (Norvasc) 5 mg DAILY ORAL 11/18/16 09:00 12/18/16 08:59 11/18/16 08:30 Cefepime HCl/ Dextrose (Maxipime/D5W) 55 ml @ 110 mls/hr Q24H IVPB 11/18/16 01:00 11/25/16 00:59 11/18/16 00:07 Chlorhexidine Gluconate (Ebony-Hex 2%) 1 applic QHS TOPIC 11/17/16 21:00 12/17/16 20:59 11/17/16 20:56 Cinacalcet (Sensipar) 30 mg DAILY ORAL 11/18/16 09:00 12/18/16 08:59 11/18/16 08:30 Clopidogrel Bisulfate (Plavix) 75 mg DAILY ORAL 11/18/16 09:00 12/18/16 08:59 11/18/16 08:29 Emtricitabine (Emtriva) 200 mg WeSa@1800 ORAL 11/17/16 18:00 12/17/16 17:59 11/17/16 17:30 Fluconazole (Diflucan) 200 mg DAILY ORAL 11/18/16 09:00 11/25/16 08:59 11/18/16 08:30 Hydromorphone HCl (Dilaudid) 0.5 mg Q4H PRN IVP Severe Pain (Pain Scale 7-10) 11/17/16 15:00 11/24/16 14:59 11/18/16 17:18 Lorazepam (Ativan) 0.5 mg QHS PRN ORAL Insomnia 11/17/16 21:00 11/24/16 20:59 Metronidazole (Flagyl) 500 mg Q8HR ORAL 11/17/16 22:00 11/24/16 21:59 11/18/16 13:43 Nateglinide (Starlix) 120 mg TIAC ORAL 11/17/16 16:30 12/17/16 16:29 11/18/16 17:18 Oxycodone HCl (Roxicodone) 5 mg Q4H PRN ORAL For Pain 4-6 11/17/16 14:30 11/24/16 14:29 11/18/16 08:31 Patient Own Medication (Patient's Own Med) 2 ea BID ORAL 11/17/16 18:00 12/17/16 17:59 11/17/16 18:15 Sevelamer Carbonate (Renvela) 2,400 mg THREE TIMES A DAY GT 11/18/16 11:33 12/17/16 17:59 11/18/16 17:18 Sevelamer Carbonate 1600 mg 1,600 mg TID ORAL 11/18/16 13:00 12/18/16 12:59 11/18/16 17:18 Sodium Chloride (Sodium Chloride 1000ml bag) 1,000 ml @ 500 mls/hr Q2H PRN IVLG sbp<90 during hd 11/19/16 11:20 12/19/16 11:19 Temazepam (Restoril) 15 mg BEDTIME ORAL 11/17/16 21:00 11/24/16 20:59 11/17/16 20:56 Tenofovir Disoproxil Fumarate (Viread) 300 mg Sa@1800 ORAL 11/17/16 21:00 12/17/16 20:59 11/17/16 21:43 Vancomycin HCl (Vanco rx to dose) 1 ea DAILY PRN MISC Per rx protocol 11/17/16 15:00 12/17/16 14:59 Subjective Constitutional: Reports: no symptoms Respiratory: Reports: no symptoms Cardiovascular: Reports: no symptoms Gastrointestinal/Abdominal: Reports: no symptoms Neurologic: Reports: no symptoms Allergies: Coded Allergies: HEPARIN (Verified Allergy, Severe, low platelets, 06/11/14) SULFA (SULFONAMIDE ANTIBIOTICS) (Verified Allergy, Severe, nephro toxic, ) ZOLPIDEM (Verified Allergy, Unknown, 05/03/16) MEROPENEM (Verified Adverse Reaction, Intermediate, 04/01/16) Nausea and vomiting Uncoded Allergies: pork products (Allergy, Severe, rashes, 06/11/14) Subjective doing well today MIAN negative for mass remains on o2 no events using bipap at night no cp nv or bleeding for HD today no fever tolerating po Objective Last 24 Hour Vital Signs Date Time Temp Pulse Resp B/P Pulse Ox O2 Delivery O2 Flow Rate FiO2 11/25/16 09:26 89 131/50 11/25/16 07:49 97.9 89 20 131/50 100 Nasal Cannula 3.0 11/25/16 07:39 Nasal Cannula 3.0 32 11/25/16 07:39 97 Nasal Cannula 3.0 32 11/25/16 04:00 81 11/25/16 04:00 97.9 84 20 120/42 100 Room Air 11/25/16 03:22 98.4 11/25/16 01:06 90 18 98 Full Face 28 11/25/16 00:00 2.0 11/25/16 00:00 94 11/25/16 00:00 98.4 84 21 142/52 99 Room Air 11/24/16 20:30 Nasal Cannula 2.0 11/24/16 20:00 2.0 11/24/16 20:00 97.6 88 22 142/48 97 Room Air 11/24/16 20:00 93 11/24/16 19:17 95 Nasal Cannula 3.0 32 11/24/16 19:17 Nasal Cannula 3.0 32 11/24/16 17:00 Nasal Cannula 2.0 11/24/16 16:00 89 11/24/16 15:31 97.5 85 20 137/31 97 Room Air 11/24/16 11:49 98.1 93 20 133/44 99 Room Air Intake and Output 11/24/16 11/25/16 19:00 07:00 Intake Total 620 ml 110 ml Output Total 0 ml Balance 620 ml 110 ml Intake Oral 620 ml IV Total 110 ml Output Urine Total 0 ml General Appearance: WD/WN Respiratory/Chest: lungs clear, normal breath sounds Cardiovascular: normal rate, regular rhythm, no gallop/murmur, no JVD Abdomen: soft, non tender, non distended Skin: no rash, no ulcers Neurologic/Psychiatric: abnormal gait, alert, oriented x 3, normal mood/affect Lymphatic: no groin adenopathy Laboratory Tests 11/24/16 18:46: White Blood Count 6.5, Red Blood Count 3.95L, Hemoglobin 10.7L, Hematocrit 34.0L , Mean Corpuscular Volume 86, Mean Corpuscular Hemoglobin 27.1, Mean Corpuscular Hemoglobin Concent 31.4L, Red Cell Distribution Width 20.5H, Platelet Count 245, Mean Platelet Volume 7.5, Neutrophils (%) (Auto) 47.6, Lymphocytes (%) (Auto) 27.6, Monocytes (%) (Auto) 18.2H, Eosinophils (%) (Auto) 5.0H, Basophils (%) (Auto) 1.5, Sodium Level 130L, Potassium Level 6.1*H, Chloride Level 92L, Carbon Dioxide Level 18L, Anion Gap 20H, Blood Urea Nitrogen 96H, Creatinine 9.0H, Estimat Glomerular Filtration Rate 7.3, Glucose Level 204H, Calcium Level 7.8L 11/24/16 23:50: Sodium Level 130L, Potassium Level 4.1, Chloride Level 93L, Carbon Dioxide Level 21, Anion Gap 16H, Blood Urea Nitrogen 57#H, Creatinine 6.2H, Estimat Glomerular Filtration Rate 11.2, Glucose Level 187H, Calcium Level 8.3L 11/25/16 05:00: White Blood Count 6.0, Red Blood Count 4.02L, Hemoglobin 10.6L, Hematocrit 34.5L , Mean Corpuscular Volume 86, Mean Corpuscular Hemoglobin 26.2L, Mean Corpuscular Hemoglobin Concent 30.6L, Red Cell Distribution Width 20.3H, Platelet Count 261, Mean Platelet Volume 7.4, Neutrophils (%) (Auto) 53.1, Lymphocytes (%) (Auto) 24.2, Monocytes (%) (Auto) 16.0H, Eosinophils (%) (Auto) 5.3H, Basophils (%) (Auto) 1.3, Sodium Level 132L, Potassium Level 5.2H, Chloride Level 96L, Carbon Dioxide Level 20, Anion Gap 16H, Blood Urea Nitrogen 68H, Creatinine 7.5H, Estimat Glomerular Filtration Rate 9.0, Glucose Level 145H , Calcium Level 8.3L Current Medications Medications (Trade) Dose Ordered Sig/Zohaib Route PRN Reason Start Time Stop Time Status Last Admin Dose Admin Amlodipine Besylate (Norvasc) 5 mg DAILY ORAL 11/18/16 09:00 12/18/16 08:59 11/25/16 09:26 Cefepime HCl/ Dextrose (Maxipime/D5W) 55 ml @ 110 mls/hr Q24H IVPB 11/24/16 01:00 11/30/16 00:59 11/25/16 00:13 Chlorhexidine Gluconate (Ebony-Hex 2%) 1 applic QHS TOPIC 11/17/16 21:00 12/17/16 20:59 11/24/16 20:44 Cinacalcet (Sensipar) 30 mg DAILY ORAL 11/18/16 09:00 12/18/16 08:59 11/25/16 09:25 Clopidogrel Bisulfate (Plavix) 75 mg DAILY ORAL 11/18/16 09:00 12/18/16 08:59 11/25/16 09:25 Emtricitabine (Emtriva) 200 mg WeSa@1800 ORAL 11/17/16 18:00 12/17/16 17:59 11/24/16 18:13 Fluconazole (Diflucan) 200 mg DAILY ORAL 11/24/16 09:00 11/30/16 08:59 11/25/16 09:25 Hydromorphone HCl (Dilaudid) 0.5 mg Q4H PRN IVP For Pain 7-11/24/16 16:15 12/01/16 16:14 11/25/16 10:51 Metronidazole (Flagyl) 500 mg Q8HR ORAL 11/23/16 22:00 11/30/16 21:59 11/25/16 06:14 Nateglinide (Starlix) 120 mg TIAC ORAL 11/17/16 16:30 12/17/16 16:29 11/25/16 06:14 Oxycodone HCl (Roxicodone) 5 mg Q4H PRN ORAL PAIN 4-6 11/24/16 16:15 12/01/16 16:14 11/24/16 16:45 Patient Own Medication (Patient's Own Med) 2 ea BID ORAL 11/17/16 18:00 12/17/16 17:59 11/25/16 09:26 Sevelamer Carbonate (Renvela) 2,400 mg THREE TIMES A DAY ORAL 11/24/16 08:32 12/17/16 17:59 11/25/16 09:00 Sevelamer Carbonate 1600 mg 1,600 mg TID ORAL 11/18/16 13:00 12/18/16 12:59 11/25/16 09:29 Sodium Chloride 1,000 ml @ 500 mls/hr Q2H PRN IVLG sbp<90 during hd 11/24/16 12:44 12/24/16 12:43 Tenofovir Disoproxil Fumarate (Viread) 300 mg Sa@1800 ORAL 11/17/16 21:00 12/17/16 20:59 11/24/16 18:12 Vancomycin HCl (Vanco rx to dose) 1 ea DAILY PRN MISC Per rx protocol 11/23/16 14:45 12/23/16 14:44 GLADYS ELDER DO Nov 25, 2016 11:18
[2016-11-25] MEDS: oxyCODONE 5mg IR tab ORAL PRN (12:50)
--- NOTE | 2016-11-25 12:58 | Infectious Diseases Prog Note ---
Assessment/Plan Assessment/Plan ASSESSMENT AND PLAN: 1. bilateral R>L foot wounds, right foot and heel infected wounds and necrosis - wound culture with yeast, likely polymicrobial - MRI c/o osteo right ankle and possible right foot - wound culture with nicole, likely polymicrobial infection - podiatry and vascular surgery f/u noted - continue vancomycin, cefepime, flagy and diflucan - failed outpatient zosyn - wound care per protocol - right atrial echodense mass, heart block - ? endocarditis, blood cultures negative - MIAN without vegetation, thrombus or 2. patient getting treated for right heel/foot osteo as outpatient with vancomycin and zosyn based on most recent wound culture in my office 3. End-stage renal disease, on hemodialysis. 4. Hypertension and diabetes, hep c + 5. Human immunodeficiency virus. Continue antiretroviral treatment at this time from home, cd4 ordered. Pt f/u with Dr. Chinchilla for HIV care. 6. Blood sugar and blood pressure control for diabetes and hypertension, per primary. 7. Anemia. 8. Hemodialysis per Renal. 9. Transient ischemic attack. 10. Congestive heart failure. 11. History of osteomyelitis of left foot. 12. Hepatis C. 13. History of seizure. 14. Weakness. 15. Past medical history noted. 16. Allergies to Heparin, meropenem, sulfa, and Zolpidem. 17. MAR was noted. 18. Case was discussed with RN. 19. Social history is negative. 20. Family history is noncontributory. 21. Case discussed with Dr. Thornton. 22. Continue treatment per primary consultants. 23. Wound care protocol. 24. Podiatry followup. 25. Continue Vascular Surgery evaluation. 26. Hypoglycemia treatment per primary. Subjective Constitutional: Denies: fever HEENT: Denies: congestion Respiratory: Denies: shortness of breath Cardiovascular: Denies: chest pain Gastrointestinal/Abdominal: Denies: diarrhea, nausea, vomiting Genitourinary: Denies: dysuria Neurologic: Denies: headache Psychiatric: Denies: depression Skin: Denies: rash Hematologic: Denies: bleeding Musculoskeletal: Denies: pain Allergies: Coded Allergies: HEPARIN (Verified Allergy, Severe, low platelets, 06/11/14) SULFA (SULFONAMIDE ANTIBIOTICS) (Verified Allergy, Severe, nephro toxic, ) ZOLPIDEM (Verified Allergy, Unknown, 05/03/16) MEROPENEM (Verified Adverse Reaction, Intermediate, 04/01/16) Nausea and vomiting Uncoded Allergies: pork products (Allergy, Severe, rashes, 06/11/14) Objective Vital Signs Last 24 Hour Vital Signs Date Time Temp Pulse Resp B/P Pulse Ox O2 Delivery O2 Flow Rate FiO2 11/25/16 11:35 97.9 85 20 135/45 100 Nasal Cannula 3.0 11/25/16 11:21 97.9 11/25/16 09:26 89 131/50 11/25/16 07:49 97.9 89 20 131/50 100 Nasal Cannula 3.0 11/25/16 07:39 Nasal Cannula 3.0 32 11/25/16 07:39 97 Nasal Cannula 3.0 32 11/25/16 04:00 81 11/25/16 04:00 97.9 84 20 120/42 100 Room Air 11/25/16 01:06 90 18 98 Full Face 28 11/25/16 00:00 2.0 11/25/16 00:00 94 11/25/16 00:00 98.4 84 21 142/52 99 Room Air 11/24/16 20:30 Nasal Cannula 2.0 11/24/16 20:00 2.0 11/24/16 20:00 97.6 88 22 142/48 97 Room Air 11/24/16 20:00 93 11/24/16 19:17 95 Nasal Cannula 3.0 32 11/24/16 19:17 Nasal Cannula 3.0 32 11/24/16 17:00 Nasal Cannula 2.0 11/24/16 16:00 89 11/24/16 15:31 97.5 85 20 137/31 97 Room Air Height (Feet): 6 Height (Inches): 6.00 Weight (Pounds): 182 General Appearance: no acute distress HEENT: normocephalic, atraumatic, anicteric, mucous membranes moist, PERRL, EOMI, pharynx normal, supple, no JVD Respiratory/Chest: lungs clear, normal breath sounds, no respiratory distress, no accessory muscle use Cardiovascular: normal rate, regular rhythm, no gallop/murmur, no JVD Abdomen: normal bowel sounds, soft, non tender, no organomegaly, non distended Genitourinary: other - no agarwal Extremities: other - wounds covered Skin: no rash Neurologic/Psychiatric: producer assistant II-XII grossly normal, alert, responsive Lymphatic: no neck adenopathy Musculoskeletal: no effusion Objective bilateral foot x-rays - no osteo chest x-ray - atx MRI - right ankle and foot: Impression: Acute osteomyelitis involving the posterior plantar aspect of the calcaneus adjacent to a large ulcer. Impression: Nonspecific, very small foci of abnormal signal at the dorsal heads of the first and fourth proximal phalanges. If there is evidence of active infection with ulcers in these 2 locations, osteomyelitis should be considered. Please correlate clinically. MIAN - no thrombus or vegetation per cardiology notes Microbiology Date/Time Source Procedure Growth Status 11/11/16 16:05 Blood Blood Culture - Final NO GROWTH AFTER 5 DAYS Complete 11/10/16 19:50 Nasal Nares MRSA Culture - Final NO METHICILLIN RESISTANT STAPH AUREUS... Complete 11/13/16 02:00 Foot Right Gram Stain - Final Complete 11/13/16 02:00 Aerobic Culture - Final Nicole Parapsilosis Complete 11/13/16 02:00 Foot Right Anaerobic Culture - Final NO ANAEROBES ISOLATED Complete Laboratory Tests Test 11/24/16 18:46 11/24/16 23:50 11/25/16 05:00 White Blood Count 6.5 K/UL (4.8-10.8) 6.0 K/UL (4.8-10.8) Red Blood Count 3.95 M/UL (4.70-6.10) L 4.02 M/UL (4.70-6.10) L Hemoglobin 10.7 G/DL (14.2-18.0) L 10.6 G/DL (14.2-18.0) L Hematocrit 34.0 % (42.0-52.0) L 34.5 % (42.0-52.0) L Mean Corpuscular Volume 86 FL (80-99) 86 FL (80-99) Mean Corpuscular Hemoglobin 27.1 PG (27.0-31.0) 26.2 PG (27.0-31.0) L Mean Corpuscular Hemoglobin Concent 31.4 G/DL (32.0-36.0) L 30.6 G/DL (32.0-36.0) L Red Cell Distribution Width 20.5 % (11.6-14.8) H 20.3 % (11.6-14.8) H Platelet Count 245 K/UL (150-450) 261 K/UL (150-450) Mean Platelet Volume 7.5 FL (6.5-10.1) 7.4 FL (6.5-10.1) Neutrophils (%) (Auto) 47.6 % (45.0-75.0) 53.1 % (45.0-75.0) Lymphocytes (%) (Auto) 27.6 % (20.0-45.0) 24.2 % (20.0-45.0) Monocytes (%) (Auto) 18.2 % (1.0-10.0) H 16.0 % (1.0-10.0) H Eosinophils (%) (Auto) 5.0 % (0.0-3.0) H 5.3 % (0.0-3.0) H Basophils (%) (Auto) 1.5 % (0.0-2.0) 1.3 % (0.0-2.0) Sodium Level 130 mEQ/L (135-145) L 130 mEQ/L (135-145) L 132 mEQ/L (135-145) L Potassium Level 6.1 mEQ/L (3.4-4.9) *H 4.1 mEQ/L (3.4-4.9) 5.2 mEQ/L (3.4-4.9) H Chloride Level 92 mEQ/L (98-107) L 93 mEQ/L (98-107) L 96 mEQ/L (98-107) L Carbon Dioxide Level 18 mEQ/L (20-30) L 21 mEQ/L (20-30) 20 mEQ/L (20-30) Anion Gap 20 (5-15) H 16 (5-15) H 16 (5-15) H Blood Urea Nitrogen 96 mg/dL (7-23) H 57 mg/dL (7-23) #H 68 mg/dL (7-23) H Creatinine 9.0 mg/dL (0.7-1.2) H 6.2 mg/dL (0.7-1.2) H 7.5 mg/dL (0.7-1.2) H Estimat Glomerular Filtration Rate 7.3 mL/min (>60) 11.2 mL/min (>60) 9.0 mL/min (>60) Glucose Level 204 mg/dL (74-106) H 187 mg/dL (74-106) H 145 mg/dL (74-106) H Calcium Level 7.8 mg/dL (8.6-10.2) L 8.3 mg/dL (8.6-10.2) L 8.3 mg/dL (8.6-10.2) L Current Medications Medications (Trade) Dose Ordered Sig/Zohaib Route PRN Reason Start Time Stop Time Status Last Admin Dose Admin Amlodipine Besylate (Norvasc) 5 mg DAILY ORAL 11/18/16 09:00 12/18/16 08:59 11/25/16 09:26 Cefepime HCl/ Dextrose (Maxipime/D5W) 55 ml @ 110 mls/hr Q24H IVPB 11/24/16 01:00 11/30/16 00:59 11/25/16 00:13 Chlorhexidine Gluconate (Ebony-Hex 2%) 1 applic QHS TOPIC 11/17/16 21:00 12/17/16 20:59 11/24/16 20:44 Cinacalcet (Sensipar) 30 mg DAILY ORAL 11/18/16 09:00 12/18/16 08:59 11/25/16 09:25 Clopidogrel Bisulfate (Plavix) 75 mg DAILY ORAL 11/18/16 09:00 12/18/16 08:59 11/25/16 09:25 Emtricitabine (Emtriva) 200 mg WeSa@1800 ORAL 11/17/16 18:00 12/17/16 17:59 11/24/16 18:13 Fluconazole (Diflucan) 200 mg DAILY ORAL 11/24/16 09:00 11/30/16 08:59 11/25/16 09:25 Hydromorphone HCl (Dilaudid) 0.5 mg Q4H PRN IVP For Pain 7-11/24/16 16:15 12/01/16 16:14 11/25/16 10:51 Metronidazole (Flagyl) 500 mg Q8HR ORAL 11/23/16 22:00 11/30/16 21:59 11/25/16 06:14 Nateglinide (Starlix) 120 mg TIAC ORAL 11/17/16 16:30 12/17/16 16:29 11/25/16 12:43 Oxycodone HCl (Roxicodone) 5 mg Q4H PRN ORAL PAIN 4-6 11/24/16 16:15 12/01/16 16:14 11/25/16 12:50 Patient Own Medication (Patient's Own Med) 2 ea BID ORAL 11/17/16 18:00 12/17/16 17:59 11/25/16 09:26 Sevelamer Carbonate (Renvela) 2,400 mg THREE TIMES A DAY ORAL 11/24/16 08:32 12/17/16 17:59 11/25/16 12:43 Sevelamer Carbonate 1600 mg 1,600 mg TID ORAL 11/18/16 13:00 12/18/16 12:59 11/25/16 12:43 Sodium Chloride 1,000 ml @ 500 mls/hr Q2H PRN IVLG sbp<90 during hd 11/24/16 12:44 12/24/16 12:43 Tenofovir Disoproxil Fumarate (Viread) 300 mg Sa@1800 ORAL 11/17/16 21:00 12/17/16 20:59 11/24/16 18:12 Vancomycin HCl (Vanco rx to dose) 1 ea DAILY PRN MISC Per rx protocol 11/23/16 14:45 12/23/16 14:44 INOCENCIA DOS SANTOS Nov 25, 2016 12:58
--- NOTE | 2016-11-25 16:33 | Internal Med Progress Note ---
Subjective Date of Service: Nov 25, 2016 Physician Name Gisele Tohrnton Attending Physician Gisele Thornton Current Medications Medications (Trade) Dose Ordered Sig/Zohaib Route PRN Reason Start Time Stop Time Status Last Admin Dose Admin Amlodipine Besylate (Norvasc) 5 mg DAILY ORAL 11/18/16 09:00 12/18/16 08:59 11/25/16 09:26 Cefepime HCl/ Dextrose (Maxipime/D5W) 55 ml @ 110 mls/hr Q24H IVPB 11/24/16 01:00 11/30/16 00:59 11/25/16 00:13 Chlorhexidine Gluconate (Ebony-Hex 2%) 1 applic QHS TOPIC 11/17/16 21:00 12/17/16 20:59 11/24/16 20:44 Cinacalcet (Sensipar) 30 mg DAILY ORAL 11/18/16 09:00 12/18/16 08:59 11/25/16 09:25 Clopidogrel Bisulfate (Plavix) 75 mg DAILY ORAL 11/18/16 09:00 12/18/16 08:59 11/25/16 09:25 Emtricitabine (Emtriva) 200 mg WeSa@1800 ORAL 11/17/16 18:00 12/17/16 17:59 11/24/16 18:13 Fluconazole (Diflucan) 200 mg DAILY ORAL 11/24/16 09:00 11/30/16 08:59 11/25/16 09:25 Hydromorphone HCl (Dilaudid) 0.5 mg Q4H PRN IVP For Pain 7-11/24/16 16:15 12/01/16 16:14 11/25/16 10:51 Metronidazole (Flagyl) 500 mg Q8HR ORAL 11/23/16 22:00 11/30/16 21:59 11/25/16 15:14 Nateglinide (Starlix) 120 mg TIAC ORAL 11/17/16 16:30 12/17/16 16:29 11/25/16 12:43 Oxycodone HCl (Roxicodone) 5 mg Q4H PRN ORAL PAIN 4-6 11/24/16 16:15 12/01/16 16:14 11/25/16 12:50 Patient Own Medication (Patient's Own Med) 2 ea BID ORAL 11/17/16 18:00 12/17/16 17:59 11/25/16 09:26 Sevelamer Carbonate (Renvela) 2,400 mg THREE TIMES A DAY ORAL 11/24/16 08:32 12/17/16 17:59 11/25/16 12:43 Sevelamer Carbonate 1600 mg 1,600 mg TID ORAL 11/18/16 13:00 12/18/16 12:59 11/25/16 12:43 Sodium Chloride 1,000 ml @ 500 mls/hr Q2H PRN IVLG sbp<90 during hd 11/24/16 12:44 12/24/16 12:43 Tenofovir Disoproxil Fumarate (Viread) 300 mg Sa@1800 ORAL 11/17/16 21:00 12/17/16 20:59 11/24/16 18:12 Vancomycin HCl (Vanco rx to dose) 1 ea DAILY PRN MISC Per rx protocol 11/23/16 14:45 12/23/16 14:44 Allergies: Coded Allergies: HEPARIN (Verified Allergy, Severe, low platelets, 06/11/14) SULFA (SULFONAMIDE ANTIBIOTICS) (Verified Allergy, Severe, nephro toxic, ) ZOLPIDEM (Verified Allergy, Unknown, 05/03/16) MEROPENEM (Verified Adverse Reaction, Intermediate, 04/01/16) Nausea and vomiting Uncoded Allergies: pork products (Allergy, Severe, rashes, 06/11/14) ROS Limited/Unobtainable: No Constitutional: Reports: no symptoms HEENT: Reports: no symptoms Cardiovascular: Reports: no symptoms Respiratory: Reports: no symptoms Gastrointestinal/Abdominal: Reports: no symptoms Genitourinary: Reports: no symptoms Neurologic/Psychiatric: Reports: no symptoms Subjective 61 YO M admitted with shortness of breath, hypoglycemia and right diabetic foot ulcer. Now gangrene right foot with osteomyelitis. S/P Transesophageal echo on 11/23/16 Objective Last Vital Signs Date Time Temp Pulse Resp B/P Pulse Ox O2 Delivery O2 Flow Rate FiO2 11/25/16 15:45 97.7 81 20 134/47 96 Nasal Cannula 3.0 11/25/16 07:39 32 Laboratory Tests Test 11/24/16 18:46 11/24/16 23:50 11/25/16 05:00 White Blood Count 6.5 K/UL (4.8-10.8) 6.0 K/UL (4.8-10.8) Red Blood Count 3.95 M/UL (4.70-6.10) L 4.02 M/UL (4.70-6.10) L Hemoglobin 10.7 G/DL (14.2-18.0) L 10.6 G/DL (14.2-18.0) L Hematocrit 34.0 % (42.0-52.0) L 34.5 % (42.0-52.0) L Mean Corpuscular Volume 86 FL (80-99) 86 FL (80-99) Mean Corpuscular Hemoglobin 27.1 PG (27.0-31.0) 26.2 PG (27.0-31.0) L Mean Corpuscular Hemoglobin Concent 31.4 G/DL (32.0-36.0) L 30.6 G/DL (32.0-36.0) L Red Cell Distribution Width 20.5 % (11.6-14.8) H 20.3 % (11.6-14.8) H Platelet Count 245 K/UL (150-450) 261 K/UL (150-450) Mean Platelet Volume 7.5 FL (6.5-10.1) 7.4 FL (6.5-10.1) Neutrophils (%) (Auto) 47.6 % (45.0-75.0) 53.1 % (45.0-75.0) Lymphocytes (%) (Auto) 27.6 % (20.0-45.0) 24.2 % (20.0-45.0) Monocytes (%) (Auto) 18.2 % (1.0-10.0) H 16.0 % (1.0-10.0) H Eosinophils (%) (Auto) 5.0 % (0.0-3.0) H 5.3 % (0.0-3.0) H Basophils (%) (Auto) 1.5 % (0.0-2.0) 1.3 % (0.0-2.0) Sodium Level 130 mEQ/L (135-145) L 130 mEQ/L (135-145) L 132 mEQ/L (135-145) L Potassium Level 6.1 mEQ/L (3.4-4.9) *H 4.1 mEQ/L (3.4-4.9) 5.2 mEQ/L (3.4-4.9) H Chloride Level 92 mEQ/L (98-107) L 93 mEQ/L (98-107) L 96 mEQ/L (98-107) L Carbon Dioxide Level 18 mEQ/L (20-30) L 21 mEQ/L (20-30) 20 mEQ/L (20-30) Anion Gap 20 (5-15) H 16 (5-15) H 16 (5-15) H Blood Urea Nitrogen 96 mg/dL (7-23) H 57 mg/dL (7-23) #H 68 mg/dL (7-23) H Creatinine 9.0 mg/dL (0.7-1.2) H 6.2 mg/dL (0.7-1.2) H 7.5 mg/dL (0.7-1.2) H Estimat Glomerular Filtration Rate 7.3 mL/min (>60) 11.2 mL/min (>60) 9.0 mL/min (>60) Glucose Level 204 mg/dL (74-106) H 187 mg/dL (74-106) H 145 mg/dL (74-106) H Calcium Level 7.8 mg/dL (8.6-10.2) L 8.3 mg/dL (8.6-10.2) L 8.3 mg/dL (8.6-10.2) L Intake and Output 11/24/16 11/25/16 19:00 07:00 Intake Total 620 ml 110 ml Output Total 0 ml Balance 620 ml 110 ml Intake Oral 620 ml IV Total 110 ml Output Urine Total 0 ml Objective General Appearance: WD/WN, no apparent distress, alert EENT: PERRL/EOMI, normal ENT inspection, TMs normal Neck: non-tender, normal alignment, supple Cardiovascular: normal peripheral pulses, sinus bradycardia, regular rhythm, no gallop/murmur, no JVD Respiratory/Chest: chest wall non-tender, lungs clear, normal breath sounds, no respiratory distress, no accessory muscle use Abdomen: normal bowel sounds, non tender, soft, no organomegaly, no mass Extremities: right foot dressing clean and dry; normal range of motion 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 See podiatry consult note. cont vanco, cefepime and flagyl per ID (6) HIV disease Assessment & Plan: Continue HAART per ID (7) HTN (hypertension) Assessment & Plan: Continue metoprolol (8) Diabetes Assessment & Plan: Hypoglycemic on arrival. (9) ESRD (end stage renal disease) Assessment & Plan: Hemodialysis today 11/24/16. See nephrology note-Dr Bianchi (10) Bradycardia Assessment & Plan: See cardiology consult. D/C metoprolol and clonidine. (11) Osteomyelitis of ankle or foot, right, acute Assessment & Plan: See podiatry note. (12) Gangrene of right foot Assessment & Plan: Needs revascularization prior to surgery. See vasc surg note. (13) Right atrial mass Assessment & Plan: See cardiology note. 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 (16) Hyperkalemia Assessment & Plan: Last Hemodialysis 11/24/16 -see nephrology note. Status: stable TONYGISELE Nov 25, 2016 16:33
[2016-11-25] MEDS: Dyna-Hex 2% Top Sol 8oz TOPIC SCH (21:22)
[2016-11-26] MEDS: Cefepime HCl 0.5 GM in D5W 55 ML IVPB SCH (01:37)
[2016-11-26] MEDS: oxyCODONE 5mg IR tab ORAL PRN ×3 (01:38→13:38)
[2016-11-26 04:00] VITALS: BP 134/39
[2016-11-26] MEDS: metroNIDAZOLE 500mg tab ORAL SCH ×2 (05:28→13:38)
[2016-11-26] MEDS: Hydromorphone 0.5mg/0.5ml inj IVP PRN ×4 (05:38→21:49)
[2016-11-26 08:00] VITALS: BP 136/86
[2016-11-26 08:12] LABS: BASOPHILS % (AUTO) 1.3 % (0.0-2.0); EOSINOPHILS % (AUTO) 6.1 % (0.0-3.0); LYMPHOCYTES % (AUTO) 33.2 % (20.0-45.0); MEAN CORPUSCULAR HEMOGLOBIN 27.2 PG (27.0-31.0); MEAN CORPUSCULAR HGB CONC 31.7 G/DL (32.0-36.0); MEAN CORPUSCULAR VOLUME 86 FL (80-99); MEAN PLATELET VOLUME 7.3 FL (6.5-10.1); MONOCYTES % (AUTO) 15.9 % (1.0-10.0); NEUTROPHILS % (AUTO) 43.5 % (45.0-75.0); PLATELET COUNT 269 K/UL (150-450); RED BLOOD COUNT 3.95 M/UL (4.70-6.10); RED CELL DISTRIBUTION WIDTH 20.4 % (11.6-14.8)
[2016-11-26] MEDS: Renvela 2400 mg pkt ORAL SCH ×3 (08:16→17:22)
[2016-11-26] MEDS: Fluconazole 100mg tab ORAL SCH (08:16)
[2016-11-26] MEDS: Sensipar 30mg Tab ORAL SCH (08:18)
[2016-11-26] MEDS: VIRACEPT ORAL SCH ×2 (08:18→17:20)
[2016-11-26 08:35] LABS: ALBUMIN/GLOBULIN RATIO 0.7 (1.0-2.7); CALCIUM 8.2 mg/dL (8.6-10.2); CREATININE 9.6 mg/dL (0.7-1.2); GLOMERULAR FILTRATION RATE 6.8 mL/min (>60); POTASSIUM 5.7 mEQ/L (3.4-4.9); TOTAL PROTEIN 8.3 g/dL (6.6-8.7)
--- NOTE | 2016-11-26 09:16 | Pulmonology Progress Note ---
Assessment/Plan Assessment/Plan 1. Sleep apnea. 2. Sepsis with shock. 3. Right foot osteomyelitis. 4. Chronic hepatitis. 5. OslerWeberRendu syndrome (hemorrhagic telangiectasia). 6. End-stage renal disease, on dialysis. 7. Diabetic autonomic neuropathy. 8. History of hypertension. 9. Human immunodeficiency virus. using BiPAP at night MIAN noted cont BiPAP stable pulm status Subjective Constitutional: Denies: anorexia, fever Respiratory: Reports: no symptoms Allergies: Coded Allergies: HEPARIN (Verified Allergy, Severe, low platelets, 06/11/14) SULFA (SULFONAMIDE ANTIBIOTICS) (Verified Allergy, Severe, nephro toxic, ) ZOLPIDEM (Verified Allergy, Unknown, 05/03/16) MEROPENEM (Verified Adverse Reaction, Intermediate, 04/01/16) Nausea and vomiting Uncoded Allergies: pork products (Allergy, Severe, rashes, 06/11/14) Objective Last 24 Hour Vital Signs Date Time Temp Pulse Resp B/P Pulse Ox O2 Delivery O2 Flow Rate FiO2 11/26/16 08:18 91 136/86 11/26/16 08:00 97 11/26/16 08:00 97.5 97 136/86 11/26/16 07:36 95 Room Air 11/26/16 07:36 Room Air 11/26/16 06:08 98.1 11/26/16 04:00 98.1 84 18 134/39 98 Room Air 11/26/16 04:00 28 11/26/16 04:00 89 11/26/16 03:53 86 18 98 Full Face 11/26/16 01:30 88 18 98 Full Face 11/26/16 00:00 28 11/26/16 00:00 89 11/25/16 23:46 97.7 85 18 137/35 98 Room Air 11/25/16 20:00 2.0 11/25/16 20:00 91 11/25/16 19:57 98.2 85 19 129/39 99 Nasal Cannula 2.0 11/25/16 19:30 94 Room Air 21 11/25/16 19:30 Room Air 21 11/25/16 16:00 80 11/25/16 15:45 97.7 81 20 134/47 96 Nasal Cannula 3.0 11/25/16 12:00 84 11/25/16 11:35 97.9 85 20 135/45 100 Nasal Cannula 3.0 11/25/16 09:26 89 131/50 Intake and Output 11/25/16 11/26/16 19:00 07:00 Intake Total 360 ml 380 ml Balance 360 ml 380 ml Intake Oral 360 ml 380 ml General Appearance: no acute distress Respiratory/Chest: lungs clear Laboratory Tests 11/26/16 07:10: White Blood Count 6.0, Red Blood Count 3.95L, Hemoglobin 10.7L, Hematocrit 33.9L , Mean Corpuscular Volume 86, Mean Corpuscular Hemoglobin 27.2, Mean Corpuscular Hemoglobin Concent 31.7L, Red Cell Distribution Width 20.4H, Platelet Count 269, Mean Platelet Volume 7.3, Neutrophils (%) (Auto) 43.5L, Lymphocytes (%) (Auto) 33.2, Monocytes (%) (Auto) 15.9H, Eosinophils (%) (Auto) 6.1H, Basophils (%) (Auto) 1.3, Sodium Level 133L, Potassium Level 5.7H, Chloride Level 94L, Carbon Dioxide Level 18L, Anion Gap 21H, Blood Urea Nitrogen 98#H, Creatinine 9.6H, Estimat Glomerular Filtration Rate 6.8, Glucose Level 85, Calcium Level 8.2L, Total Bilirubin 0.4, Aspartate Amino Transf (AST/ SGOT) 29, Alanine Aminotransferase (ALT/SGPT) 17, Alkaline Phosphatase 219H, Total Protein 8.3, Albumin 3.6, Globulin 4.7, Albumin/Globulin Ratio 0.7L, Random Vancomycin Level 20.3 Current Medications Medications (Trade) Dose Ordered Sig/Zohaib Route PRN Reason Start Time Stop Time Status Last Admin Dose Admin Amlodipine Besylate (Norvasc) 5 mg DAILY ORAL 11/18/16 09:00 12/18/16 08:59 11/26/16 08:18 Cefepime HCl/ Dextrose (Maxipime/D5W) 55 ml @ 110 mls/hr Q24H IVPB 11/24/16 01:00 11/30/16 00:59 11/26/16 01:37 Chlorhexidine Gluconate (Ebony-Hex 2%) 1 applic QHS TOPIC 11/17/16 21:00 12/17/16 20:59 11/25/16 21:22 Cinacalcet (Sensipar) 30 mg DAILY ORAL 11/18/16 09:00 12/18/16 08:59 11/26/16 08:18 Clopidogrel Bisulfate (Plavix) 75 mg DAILY ORAL 11/18/16 09:00 12/18/16 08:59 11/26/16 08:17 Emtricitabine (Emtriva) 200 mg WeSa@1800 ORAL 11/17/16 18:00 12/17/16 17:59 11/24/16 18:13 Fluconazole (Diflucan) 200 mg DAILY ORAL 11/24/16 09:00 11/30/16 08:59 11/26/16 08:16 Hydromorphone HCl (Dilaudid) 0.5 mg Q4H PRN IVP For Pain 11-0511/24/16 16:15 12/01/16 16:14 11/26/16 05:38 Metronidazole (Flagyl) 500 mg Q8HR ORAL 11/23/16 22:00 11/30/16 21:59 11/26/16 05:28 Nateglinide (Starlix) 120 mg TIAC ORAL 11/17/16 16:30 12/17/16 16:29 11/26/16 06:27 Oxycodone HCl (Roxicodone) 5 mg Q4H PRN ORAL PAIN 4-6 11/24/16 16:15 12/01/16 16:14 11/26/16 08:17 Patient Own Medication (Patient's Own Med) 2 ea BID ORAL 11/17/16 18:00 12/17/16 17:59 11/26/16 08:18 Sevelamer Carbonate (Renvela) 2,400 mg THREE TIMES A DAY ORAL 11/24/16 08:32 12/17/16 17:59 11/26/16 08:16 Sevelamer Carbonate 1600 mg 1,600 mg TID ORAL 11/18/16 13:00 12/18/16 12:59 11/25/16 17:06 Sodium Chloride 1,000 ml @ 500 mls/hr Q2H PRN IVLG sbp<90 during hd 11/24/16 12:44 12/24/16 12:43 Tenofovir Disoproxil Fumarate (Viread) 300 mg Sa@1800 ORAL 11/17/16 21:00 12/17/16 20:59 11/25/16 17:05 Vancomycin HCl (Vanco rx to dose) 1 ea DAILY PRN MISC Per rx protocol 11/23/16 14:45 12/23/16 14:44 COSME DE OLIVEIRA Nov 26, 2016 09:16
[2016-11-26 12:00] VITALS: BP 126/48
[2016-11-26] MEDS: Renvela 800mg Pkt ORAL SCH ×2 (12:05→17:20)
--- NOTE | 2016-11-26 12:50 | Nephrology Progress Note ---
Assessment/Plan Assessment 1) ESRD 2) PVD 3) Recirculation with poor dialysis clearance 4) Osteo of R foot Plan: Continue IV ATB Will dialyze today and tomorrow Subjective Subjective He is doing status quo, the HD was not done yesterday even though was ordered for yesterday Objective Objective Last 24 Hour Vital Signs Date Time Temp Pulse Resp B/P Pulse Ox O2 Delivery O2 Flow Rate FiO2 11/26/16 12:00 97.5 93 20 126/48 Nasal Cannula 3.0 11/26/16 11:55 87 11/26/16 08:18 91 136/86 11/26/16 08:00 97 11/26/16 08:00 97.5 97 136/86 11/26/16 07:36 95 Room Air 11/26/16 07:36 Room Air 11/26/16 06:08 98.1 11/26/16 04:00 98.1 84 18 134/39 98 Room Air 11/26/16 04:00 28 11/26/16 04:00 89 11/26/16 03:53 86 18 98 Full Face 28 11/26/16 01:30 88 18 98 Full Face 28 11/26/16 00:00 28 11/26/16 00:00 89 11/25/16 23:46 97.7 85 18 137/35 98 Room Air 11/25/16 20:00 2.0 11/25/16 20:00 91 11/25/16 19:57 98.2 85 19 129/39 99 Nasal Cannula 2.0 11/25/16 19:30 94 Room Air 21 11/25/16 19:30 Room Air 21 11/25/16 16:00 80 11/25/16 15:45 97.7 81 20 134/47 96 Nasal Cannula 3.0 Intake and Output 11/25/16 11/26/16 19:00 07:00 Intake Total 360 ml 380 ml Balance 360 ml 380 ml Intake Oral 360 ml 380 ml Laboratory Tests 11/26/16 07:10: White Blood Count 6.0, Red Blood Count 3.95L, Hemoglobin 10.7L, Hematocrit 33.9L , Mean Corpuscular Volume 86, Mean Corpuscular Hemoglobin 27.2, Mean Corpuscular Hemoglobin Concent 31.7L, Red Cell Distribution Width 20.4H, Platelet Count 269, Mean Platelet Volume 7.3, Neutrophils (%) (Auto) 43.5L, Lymphocytes (%) (Auto) 33.2, Monocytes (%) (Auto) 15.9H, Eosinophils (%) (Auto) 6.1H, Basophils (%) (Auto) 1.3, Sodium Level 133L, Potassium Level 5.7H, Chloride Level 94L, Carbon Dioxide Level 18L, Anion Gap 21H, Blood Urea Nitrogen 98#H, Creatinine 9.6H, Estimat Glomerular Filtration Rate 6.8, Glucose Level 85, Calcium Level 8.2L, Total Bilirubin 0.4, Aspartate Amino Transf (AST/ SGOT) 29, Alanine Aminotransferase (ALT/SGPT) 17, Alkaline Phosphatase 219H, Total Protein 8.3, Albumin 3.6, Globulin 4.7, Albumin/Globulin Ratio 0.7L, Random Vancomycin Level 20.3 Height (Feet): 6 Height (Inches): 6.00 Weight (Pounds): 189 General Appearance: WD/WN, no apparent distress, alert EENT: PERRL/EOMI, normal ENT inspection Neck: non-tender, normal alignment Cardiovascular: normal peripheral pulses, regular rhythm, no JVD Respiratory/Chest: lungs clear Abdomen: normal bowel sounds, non tender 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
--- NOTE | 2016-11-26 14:35 | Cardiac Electrophysiology PN ---
Assessment/Plan Status Narrative MIAN: Side lobe artifact refuting right atrial mass, the mass seen in the right atrial cavity with MIAN is image artifact of amplatzer device implanted for PFO closure. Eccentric regurgitant of mitral valve through prolapsed posterior leaflet consistent with severe MR Perforated vs cleft non-coronary cusp of the aortic valve leading to eccentric aortic regurgitation consistent with severe AR. Negative bubble study. Assessment/Plan 1. Bradycardia with sinus arrest and junctional rhythm. Ruled out myocardial infarction. Resolved. 2. Hypertension, on Norvasc 5 mg daily. 3. PAF S/P ablation at [facility] in 2012.In SR. 4. Peripheral vascular disease, status post metatarsal amputation, on antibiotic with right foot ulcer. 5. HIV 6. Hepatitis C. 7. Larger right atrial echogenic material/mass. MIAN 11/24/16 showed no intracardiac thrombus. 8. 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 10. Viability study 10/31/16 showed 10% nonviable myocardium. 11. End-stage renal disease, on hemodialysis. NOE RN DC planning pending Subjective Subjective Comfortable on tele NAD in SR 80s. Objective Last 24 Hour Vital Signs Date Time Temp Pulse Resp B/P Pulse Ox O2 Delivery O2 Flow Rate FiO2 11/26/16 12:00 97.5 93 20 126/48 Nasal Cannula 3.0 11/26/16 11:55 87 11/26/16 08:18 91 136/86 11/26/16 08:00 97 11/26/16 08:00 97.5 97 136/86 11/26/16 07:36 95 Room Air 21 11/26/16 07:36 Room Air 11/26/16 06:08 98.1 11/26/16 04:00 98.1 84 18 134/39 98 Room Air 11/26/16 04:00 11/26/16 04:00 89 11/26/16 03:53 86 18 98 Full Face 11/26/16 01:30 88 18 98 Full Face 11/26/16 00:00 28 11/26/16 00:00 89 11/25/16 23:46 97.7 85 18 137/35 98 Room Air 11/25/16 20:00 2.0 11/25/16 20:00 91 11/25/16 19:57 98.2 85 19 129/39 99 Nasal Cannula 2.0 11/25/16 19:30 94 Room Air 21 11/25/16 19:30 Room Air 21 11/25/16 16:00 80 11/25/16 15:45 97.7 81 20 134/47 96 Nasal Cannula 3.0 Intake and Output 11/25/16 11/26/16 19:00 07:00 Intake Total 360 ml 380 ml Balance 360 ml 380 ml Intake Oral 360 ml 380 ml Laboratory Tests Test 11/26/16 07:10 White Blood Count 6.0 K/UL (4.8-10.8) Red Blood Count 3.95 M/UL (4.70-6.10) L Hemoglobin 10.7 G/DL (14.2-18.0) L Hematocrit 33.9 % (42.0-52.0) L Mean Corpuscular Volume 86 FL (80-99) Mean Corpuscular Hemoglobin 27.2 PG (27.0-31.0) Mean Corpuscular Hemoglobin Concent 31.7 G/DL (32.0-36.0) L Red Cell Distribution Width 20.4 % (11.6-14.8) H Platelet Count 269 K/UL (150-450) Mean Platelet Volume 7.3 FL (6.5-10.1) Neutrophils (%) (Auto) 43.5 % (45.0-75.0) L Lymphocytes (%) (Auto) 33.2 % (20.0-45.0) Monocytes (%) (Auto) 15.9 % (1.0-10.0) H Eosinophils (%) (Auto) 6.1 % (0.0-3.0) H Basophils (%) (Auto) 1.3 % (0.0-2.0) Sodium Level 133 mEQ/L (135-145) L Potassium Level 5.7 mEQ/L (3.4-4.9) H Chloride Level 94 mEQ/L (98-107) L Carbon Dioxide Level 18 mEQ/L (20-30) L Anion Gap 21 (5-15) H Blood Urea Nitrogen 98 mg/dL (7-23) #H Creatinine 9.6 mg/dL (0.7-1.2) H Estimat Glomerular Filtration Rate 6.8 mL/min (>60) Glucose Level 85 mg/dL (74-106) Calcium Level 8.2 mg/dL (8.6-10.2) L Total Bilirubin 0.4 mg/dL (0.0-1.2) Aspartate Amino Transf (AST/SGOT) 29 U/L (5-40) Alanine Aminotransferase (ALT/SGPT) 17 U/L (3-41) Alkaline Phosphatase 219 U/L (40-129) H Total Protein 8.3 g/dL (6.6-8.7) Albumin 3.6 g/dL (3.5-5.2) Globulin 4.7 g/dL Albumin/Globulin Ratio 0.7 (1.0-2.7) L Random Vancomycin Level 20.3 ug/mL Objective HEAD AND NECK: No JVD. LUNGS: Decreased breath sounds.Dialysis Via left subclavian permcath. CARDIOVASCULAR: Shows regular S1 and S2. ABDOMEN: Soft. EXTREMITIES: No pitting edema. S/P right foot ulcer and left metatarsal amputation. CLIFTON KEARNEY Nov 26, 2016 14:35
[2016-11-26 16:00] VITALS: BP 124/40
--- NOTE | 2016-11-26 17:51 | Infectious Diseases Prog Note ---
Assessment/Plan Assessment/Plan ASSESSMENT AND PLAN: 1. bilateral R>L foot wounds, right foot and heel infected wounds and necrosis - wound culture with yeast, likely polymicrobial - MRI c/o osteo right ankle and possible right foot - wound culture with nicole, likely polymicrobial infection - podiatry and vascular surgery f/u noted - continue vancomycin, cefepime, flagy and diflucan - patient will need continued abx for osteo and until surgical intervention - failed outpatient zosyn - wound care per protocol - MIAN without vegetation, thrombus or - communicated with Dr. Thornton 2. patient getting treated for right heel/foot osteo as outpatient with vancomycin and zosyn based on most recent wound culture in my office 3. End-stage renal disease, on hemodialysis. 4. Hypertension and diabetes, hep c + 5. Human immunodeficiency virus. Continue antiretroviral treatment at this time from home, cd4 ordered. Pt f/u with Dr. Chinchilla for HIV care. 6. Blood sugar and blood pressure control for diabetes and hypertension, per primary. 7. Anemia. 8. Hemodialysis per Renal. 9. Transient ischemic attack. 10. Congestive heart failure. 11. History of osteomyelitis of left foot. 12. Hepatis C. 13. History of seizure. 14. Weakness. 15. Past medical history noted. 16. Allergies to Heparin, meropenem, sulfa, and Zolpidem. 17. MAR was noted. 18. Case was discussed with RN. 19. Social history is negative. 20. Family history is noncontributory. 21. Case discussed with Dr. Thornton. 22. Continue treatment per primary consultants. 23. Wound care protocol. 24. Podiatry followup. 25. Continue Vascular Surgery evaluation. 26. Hypoglycemia treatment per primary. Subjective Constitutional: Denies: fever HEENT: Denies: congestion Respiratory: Denies: shortness of breath Gastrointestinal/Abdominal: Denies: nausea Genitourinary: Reports: other - no agarwal Neurologic: Denies: weakness Psychiatric: Denies: depression Skin: Denies: rash Hematologic: Denies: bleeding Musculoskeletal: Denies: pain Allergies: Coded Allergies: HEPARIN (Verified Allergy, Severe, low platelets, 06/11/14) SULFA (SULFONAMIDE ANTIBIOTICS) (Verified Allergy, Severe, nephro toxic, ) ZOLPIDEM (Verified Allergy, Unknown, 05/03/16) MEROPENEM (Verified Adverse Reaction, Intermediate, 04/01/16) Nausea and vomiting Uncoded Allergies: pork products (Allergy, Severe, rashes, 06/11/14) Objective Vital Signs Last 24 Hour Vital Signs Date Time Temp Pulse Resp B/P Pulse Ox O2 Delivery O2 Flow Rate FiO2 11/26/16 16:00 82 11/26/16 16:00 97.5 86 19 124/40 97 Nasal Cannula 3.0 11/26/16 12:00 97.5 93 20 126/48 Nasal Cannula 3.0 11/26/16 11:55 87 11/26/16 08:18 91 136/86 11/26/16 08:00 97 11/26/16 08:00 97.5 97 136/86 11/26/16 07:36 95 Room Air 11/26/16 07:36 Room Air 21 11/26/16 06:08 98.1 11/26/16 04:00 98.1 84 18 134/39 98 Room Air 11/26/16 04:00 28 11/26/16 04:00 89 11/26/16 03:53 86 18 98 Full Face 28 11/26/16 01:30 88 18 98 Full Face 28 11/26/16 00:00 28 11/26/16 00:00 89 11/25/16 23:46 97.7 85 18 137/35 98 Room Air 11/25/16 20:00 2.0 11/25/16 20:00 91 11/25/16 19:57 98.2 85 19 129/39 99 Nasal Cannula 2.0 11/25/16 19:30 94 Room Air 21 11/25/16 19:30 Room Air 21 Height (Feet): 6 Height (Inches): 6.00 Weight (Pounds): 189 General Appearance: no acute distress HEENT: normocephalic, atraumatic, anicteric, mucous membranes moist, PERRL, EOMI, pharynx normal, supple Respiratory/Chest: lungs clear, normal breath sounds, no respiratory distress, no accessory muscle use Cardiovascular: normal rate, regular rhythm, no gallop/murmur, no JVD Abdomen: normal bowel sounds, soft, non tender, no organomegaly, non distended Genitourinary: other - no gaarwal Extremities: other - necrosis and gangrene right foot noted Skin: no rash Neurologic/Psychiatric: alert, oriented x 3, responsive Lymphatic: no neck adenopathy Musculoskeletal: no effusion Objective bilateral foot x-rays - no osteo chest x-ray - atx MRI - right ankle and foot: Impression: Acute osteomyelitis involving the posterior plantar aspect of the calcaneus adjacent to a large ulcer. Impression: Nonspecific, very small foci of abnormal signal at the dorsal heads of the first and fourth proximal phalanges. If there is evidence of active infection with ulcers in these 2 locations, osteomyelitis should be considered. Please correlate clinically. MIAN - no thrombus or vegetation per cardiology notes Microbiology Date/Time Source Procedure Growth Status 11/11/16 16:05 Blood Blood Culture - Final NO GROWTH AFTER 5 DAYS Complete 11/10/16 19:50 Nasal Nares MRSA Culture - Final NO METHICILLIN RESISTANT STAPH AUREUS... Complete 11/13/16 02:00 Foot Right Gram Stain - Final Complete 11/13/16 02:00 Aerobic Culture - Final Nicole Parapsilosis Complete 11/13/16 02:00 Foot Right Anaerobic Culture - Final NO ANAEROBES ISOLATED Complete Laboratory Tests Test 11/26/16 07:10 White Blood Count 6.0 K/UL (4.8-10.8) Red Blood Count 3.95 M/UL (4.70-6.10) L Hemoglobin 10.7 G/DL (14.2-18.0) L Hematocrit 33.9 % (42.0-52.0) L Mean Corpuscular Volume 86 FL (80-99) Mean Corpuscular Hemoglobin 27.2 PG (27.0-31.0) Mean Corpuscular Hemoglobin Concent 31.7 G/DL (32.0-36.0) L Red Cell Distribution Width 20.4 % (11.6-14.8) H Platelet Count 269 K/UL (150-450) Mean Platelet Volume 7.3 FL (6.5-10.1) Neutrophils (%) (Auto) 43.5 % (45.0-75.0) L Lymphocytes (%) (Auto) 33.2 % (20.0-45.0) Monocytes (%) (Auto) 15.9 % (1.0-10.0) H Eosinophils (%) (Auto) 6.1 % (0.0-3.0) H Basophils (%) (Auto) 1.3 % (0.0-2.0) Sodium Level 133 mEQ/L (135-145) L Potassium Level 5.7 mEQ/L (3.4-4.9) H Chloride Level 94 mEQ/L (98-107) L Carbon Dioxide Level 18 mEQ/L (20-30) L Anion Gap 21 (5-15) H Blood Urea Nitrogen 98 mg/dL (7-23) #H Creatinine 9.6 mg/dL (0.7-1.2) H Estimat Glomerular Filtration Rate 6.8 mL/min (>60) Glucose Level 85 mg/dL (74-106) Calcium Level 8.2 mg/dL (8.6-10.2) L Total Bilirubin 0.4 mg/dL (0.0-1.2) Aspartate Amino Transf (AST/SGOT) 29 U/L (5-40) Alanine Aminotransferase (ALT/SGPT) 17 U/L (3-41) Alkaline Phosphatase 219 U/L (40-129) H Total Protein 8.3 g/dL (6.6-8.7) Albumin 3.6 g/dL (3.5-5.2) Globulin 4.7 g/dL Albumin/Globulin Ratio 0.7 (1.0-2.7) L Random Vancomycin Level 20.3 ug/mL Current Medications Medications (Trade) Dose Ordered Sig/Zohaib Route PRN Reason Start Time Stop Time Status Last Admin Dose Admin Amlodipine Besylate (Norvasc) 5 mg DAILY ORAL 11/18/16 09:00 12/18/16 08:59 11/26/16 08:18 Cefepime HCl/ Dextrose (Maxipime/D5W) 55 ml @ 110 mls/hr Q24H IVPB 11/24/16 01:00 11/30/16 00:59 11/26/16 01:37 Chlorhexidine Gluconate (Ebony-Hex 2%) 1 applic QHS TOPIC 11/17/16 21:00 12/17/16 20:59 11/25/16 21:22 Cinacalcet (Sensipar) 30 mg DAILY ORAL 11/18/16 09:00 12/18/16 08:59 11/26/16 08:18 Clopidogrel Bisulfate (Plavix) 75 mg DAILY ORAL 11/18/16 09:00 12/18/16 08:59 11/26/16 08:17 Emtricitabine (Emtriva) 200 mg WeSa@1800 ORAL 11/17/16 18:00 12/17/16 17:59 11/24/16 18:13 Fluconazole (Diflucan) 200 mg DAILY ORAL 11/24/16 09:00 11/30/16 08:59 11/26/16 08:16 Hydromorphone HCl (Dilaudid) 0.5 mg Q4H PRN IVP For Pain 7-11/24/16 16:15 12/01/16 16:14 11/26/16 17:21 Metronidazole (Flagyl) 500 mg Q8HR ORAL 11/23/16 22:00 11/30/16 21:59 11/26/16 13:38 Nateglinide (Starlix) 120 mg TIAC ORAL 11/17/16 16:30 12/17/16 16:29 11/26/16 17:20 Oxycodone HCl 5 mg 5 mg Q4H PRN ORAL PAIN 4-6 11/24/16 16:15 12/01/16 16:14 11/26/16 13:38 Patient Own Medication (Patient's Own Med) 2 ea BID ORAL 11/17/16 18:00 12/17/16 17:59 11/26/16 17:20 Sevelamer Carbonate (Renvela) 2,400 mg THREE TIMES A DAY ORAL 11/24/16 08:32 12/17/16 17:59 11/26/16 13:38 Sevelamer Carbonate 1600 mg 1,600 mg TID ORAL 11/18/16 13:00 12/18/16 12:59 11/26/16 17:20 Sodium Chloride 1,000 ml @ 500 mls/hr Q2H PRN IVLG sbp<90 during hd 11/24/16 12:44 12/24/16 12:43 Tenofovir Disoproxil Fumarate (Viread) 300 mg Sa@1800 ORAL 11/17/16 21:00 12/17/16 20:59 11/25/16 17:05 Vancomycin HCl (Vanco rx to dose) 1 ea DAILY PRN MISC Per rx protocol 11/23/16 14:45 12/23/16 14:44 Vancomycin HCl/ Dextrose (Vancomycin/D5W) 275 ml @ 183.708 mls/hr ONCE ONCE IVPB 11/27/16 12:00 11/27/16 13:29 INOCENCIA DOS SANTOS Nov 26, 2016 17:51
[2016-11-26 19:14] LABS: CALCIUM 7.5 mg/dL (8.6-10.2); CREATININE 9.7 mg/dL (0.7-1.2); GLOMERULAR FILTRATION RATE 6.7 mL/min (>60)
[2016-11-26 19:24] LABS: POTASSIUM 6.3 mEQ/L (3.4-4.9)
--- NOTE | 2016-11-26 19:30 | Internal Med Progress Note ---
Subjective Date of Service: Nov 26, 2016 Physician Name Didier Jimenez Attending Physician Didier Jimenez Current Medications Medications (Trade) Dose Ordered Sig/Zohaib Route PRN Reason Start Time Stop Time Status Last Admin Dose Admin Amlodipine Besylate (Norvasc) 5 mg DAILY ORAL 11/18/16 09:00 12/18/16 08:59 11/26/16 08:18 Cefepime HCl/ Dextrose (Maxipime/D5W) 55 ml @ 110 mls/hr Q24H IVPB 11/24/16 01:00 11/30/16 00:59 11/26/16 01:37 Chlorhexidine Gluconate (Ebony-Hex 2%) 1 applic QHS TOPIC 11/17/16 21:00 12/17/16 20:59 11/25/16 21:22 Cinacalcet (Sensipar) 30 mg DAILY ORAL 11/18/16 09:00 12/18/16 08:59 11/26/16 08:18 Clopidogrel Bisulfate (Plavix) 75 mg DAILY ORAL 11/18/16 09:00 12/18/16 08:59 11/26/16 08:17 Emtricitabine (Emtriva) 200 mg WeSa@1800 ORAL 11/17/16 18:00 12/17/16 17:59 11/24/16 18:13 Fluconazole (Diflucan) 200 mg DAILY ORAL 11/24/16 09:00 11/30/16 08:59 11/26/16 08:16 Hydromorphone HCl (Dilaudid) 0.5 mg Q4H PRN IVP For Pain 7-11/24/16 16:15 12/01/16 16:14 11/26/16 17:21 Metronidazole (Flagyl) 500 mg Q8HR ORAL 11/23/16 22:00 11/30/16 21:59 11/26/16 13:38 Nateglinide (Starlix) 120 mg TIAC ORAL 11/17/16 16:30 12/17/16 16:29 11/26/16 17:20 Oxycodone HCl 5 mg 5 mg Q4H PRN ORAL PAIN 4-6 11/24/16 16:15 12/01/16 16:14 11/26/16 13:38 Patient Own Medication (Patient's Own Med) 2 ea BID ORAL 11/17/16 18:00 8/21/17 17:59 11/26/16 17:20 Sevelamer Carbonate (Renvela) 2,400 mg THREE TIMES A DAY ORAL 11/24/16 08:32 12/17/16 17:59 11/26/16 13:38 Sevelamer Carbonate 1600 mg 1,600 mg TID ORAL 11/18/16 13:00 12/18/16 12:59 11/26/16 17:20 Sodium Chloride 1,000 ml @ 500 mls/hr Q2H PRN IVLG sbp<90 during hd 11/24/16 12:44 12/24/16 12:43 Tenofovir Disoproxil Fumarate (Viread) 300 mg Sa@1800 ORAL 11/17/16 21:00 12/17/16 20:59 11/25/16 17:05 Vancomycin HCl (Vanco rx to dose) 1 ea DAILY PRN MISC Per rx protocol 11/23/16 14:45 12/23/16 14:44 Vancomycin HCl/ Dextrose (Vancomycin/D5W) 275 ml @ 183.708 mls/hr ONCE ONCE IVPB 11/27/16 12:00 11/27/16 13:29 Allergies: Coded Allergies: HEPARIN (Verified Allergy, Severe, low platelets, 06/11/14) SULFA (SULFONAMIDE ANTIBIOTICS) (Verified Allergy, Severe, nephro toxic, ) ZOLPIDEM (Verified Allergy, Unknown, 05/03/16) MEROPENEM (Verified Adverse Reaction, Intermediate, 04/01/16) Nausea and vomiting Uncoded Allergies: pork products (Allergy, Severe, rashes, 06/11/14) ROS Limited/Unobtainable: No Constitutional: Reports: no symptoms HEENT: Reports: no symptoms Cardiovascular: Reports: no symptoms Respiratory: Reports: no symptoms Gastrointestinal/Abdominal: Reports: no symptoms Genitourinary: Reports: no symptoms Neurologic/Psychiatric: Reports: no symptoms Subjective 61 YO M admitted with shortness of breath, hypoglycemia and right diabetic foot ulcer. Now gangrene right foot with osteomyelitis. S/P Transesophageal echo on 11/23/16 Objective Last Vital Signs Date Time Temp Pulse Resp B/P Pulse Ox O2 Delivery O2 Flow Rate FiO2 11/26/16 17:42 Nasal Cannula 2.0 11/26/16 16:00 82 11/26/16 16:00 97.5 19 124/40 97 11/26/16 07:36 21 Laboratory Tests Test 11/26/16 07:10 11/26/16 18:45 White Blood Count 6.0 K/UL (4.8-10.8) Red Blood Count 3.95 M/UL (4.70-6.10) L Hemoglobin 10.7 G/DL (14.2-18.0) L Hematocrit 33.9 % (42.0-52.0) L Mean Corpuscular Volume 86 FL (80-99) Mean Corpuscular Hemoglobin 27.2 PG (27.0-31.0) Mean Corpuscular Hemoglobin Concent 31.7 G/DL (32.0-36.0) L Red Cell Distribution Width 20.4 % (11.6-14.8) H Platelet Count 269 K/UL (150-450) Mean Platelet Volume 7.3 FL (6.5-10.1) Neutrophils (%) (Auto) 43.5 % (45.0-75.0) L Lymphocytes (%) (Auto) 33.2 % (20.0-45.0) Monocytes (%) (Auto) 15.9 % (1.0-10.0) H Eosinophils (%) (Auto) 6.1 % (0.0-3.0) H Basophils (%) (Auto) 1.3 % (0.0-2.0) Sodium Level 133 mEQ/L (135-145) L 132 mEQ/L (135-145) L Potassium Level 5.7 mEQ/L (3.4-4.9) H 6.3 mEQ/L (3.4-4.9) *H Chloride Level 94 mEQ/L (98-107) L 93 mEQ/L (98-107) L Carbon Dioxide Level 18 mEQ/L (20-30) L 18 mEQ/L (20-30) L Anion Gap 21 (5-15) H 21 (5-15) H Blood Urea Nitrogen 98 mg/dL (7-23) #H 112 mg/dL (7-23) H Creatinine 9.6 mg/dL (0.7-1.2) H 9.7 mg/dL (0.7-1.2) H Estimat Glomerular Filtration Rate 6.8 mL/min (>60) 6.7 mL/min (>60) Glucose Level 85 mg/dL (74-106) 126 mg/dL (74-106) H Calcium Level 8.2 mg/dL (8.6-10.2) L 7.5 mg/dL (8.6-10.2) L Total Bilirubin 0.4 mg/dL (0.0-1.2) Aspartate Amino Transf (AST/SGOT) 29 U/L (5-40) Alanine Aminotransferase (ALT/SGPT) 17 U/L (3-41) Alkaline Phosphatase 219 U/L (40-129) H Total Protein 8.3 g/dL (6.6-8.7) Albumin 3.6 g/dL (3.5-5.2) Globulin 4.7 g/dL Albumin/Globulin Ratio 0.7 (1.0-2.7) L Random Vancomycin Level 20.3 ug/mL Intake and Output 11/25/16 11/26/16 19:00 07:00 Intake Total 360 ml 380 ml Balance 360 ml 380 ml Intake Oral 360 ml 380 ml Objective General Appearance: WD/WN, no apparent distress, alert EENT: PERRL/EOMI, normal ENT inspection, TMs normal Neck: non-tender, normal alignment, supple Cardiovascular: normal peripheral pulses, sinus bradycardia, regular rhythm, no gallop/murmur, no JVD Respiratory/Chest: chest wall non-tender, lungs clear, normal breath sounds, no respiratory distress, no accessory muscle use Abdomen: normal bowel sounds, non tender, soft, no organomegaly, no mass Extremities: right foot dressing clean and dry; normal range of motion 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 See podiatry consult note. cont vanco, cefepime and flagyl per ID (6) HIV disease Assessment & Plan: Continue HAART per ID (7) HTN (hypertension) Assessment & Plan: Continue metoprolol (8) Diabetes Assessment & Plan: Hypoglycemic on arrival. (9) ESRD (end stage renal disease) Assessment & Plan: Hemodialysis today 11/24/16. See nephrology note-Dr Bianchi (10) Bradycardia Assessment & Plan: See cardiology consult. D/C metoprolol and clonidine. (11) Osteomyelitis of ankle or foot, right, acute Assessment & Plan: See podiatry note. (12) Gangrene of right foot Assessment & Plan: Needs revascularization prior to surgery. See vasc surg note. (13) Right atrial mass Assessment & Plan: See cardiology note. 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 (16) Hyperkalemia Assessment & Plan: Last Hemodialysis 11/24/16 -see nephrology note. Assessment/Plan See social work note concerning 's refusal to take patient home with home health for IV antibiotic while awaiting vascular surgery to be scheduled. DIDIER JIMENEZ Nov 26, 2016 19:30
[2016-11-26 20:04] VITALS: BP 120/58
[2016-11-26] MEDS: Dyna-Hex 2% Top Sol 8oz TOPIC SCH (21:00)
[2016-11-26 23:49] VITALS: BP 141/35
[2016-11-27] MEDS: metroNIDAZOLE 500mg tab ORAL SCH ×4 (00:09→21:14)
[2016-11-27] MEDS: Cefepime HCl 0.5 GM in D5W 55 ML IVPB SCH (01:00)
[2016-11-27 04:04] VITALS: BP 129/33
--- NOTE | 2016-11-27 06:33 | Nephrology Progress Note ---
Assessment/Plan Assessment 1) ESRD 2) PVD 3) Recirculation with poor dialysis clearance 4) Osteo of R foot Plan: Continue IV ATB Will dialyze today again Subjective Subjective He is doing status quo, he had Hd yesterday with 2 L removal, no cv/p or sob, appetite is good Objective Objective Last 24 Hour Vital Signs Date Time Temp Pulse Resp B/P Pulse Ox O2 Delivery O2 Flow Rate FiO2 11/27/16 04:30 84 18 96 Full Face 28 11/27/16 04:04 97.5 91 20 129/33 98 11/27/16 03:13 80 16 95 Full Face 28 11/26/16 23:49 97.7 89 20 141/35 99 Room Air 11/26/16 20:04 98.2 85 20 120/58 99 Room Air 11/26/16 19:30 Room Air 21 11/26/16 19:30 96 Room Air 21 11/26/16 17:42 Nasal Cannula 2.0 11/26/16 16:00 82 11/26/16 16:00 97.5 86 19 124/40 97 Nasal Cannula 3.0 11/26/16 12:00 97.5 93 20 126/48 Nasal Cannula 3.0 11/26/16 11:55 87 11/26/16 08:18 91 136/86 11/26/16 08:00 97 11/26/16 08:00 97.5 97 136/86 11/26/16 07:36 95 Room Air 21 11/26/16 07:36 Room Air 21 Intake and Output 11/26/16 11/27/16 19:00 07:00 Intake Total 320 ml Output Total 0 ml Balance 320 ml Intake Oral 320 ml Output Urine Total 0 ml # Voids 5 # Bowel Movements 2 Laboratory Tests 11/26/16 07:10: White Blood Count 6.0, Red Blood Count 3.95L, Hemoglobin 10.7L, Hematocrit 33.9L , Mean Corpuscular Volume 86, Mean Corpuscular Hemoglobin 27.2, Mean Corpuscular Hemoglobin Concent 31.7L, Red Cell Distribution Width 20.4H, Platelet Count 269, Mean Platelet Volume 7.3, Neutrophils (%) (Auto) 43.5L, Lymphocytes (%) (Auto) 33.2, Monocytes (%) (Auto) 15.9H, Eosinophils (%) (Auto) 6.1H, Basophils (%) (Auto) 1.3, Sodium Level 133L, Potassium Level 5.7H, Chloride Level 94L, Carbon Dioxide Level 18L, Anion Gap 21H, Blood Urea Nitrogen 98#H, Creatinine 9.6H, Estimat Glomerular Filtration Rate 6.8, Glucose Level 85, Calcium Level 8.2L, Total Bilirubin 0.4, Aspartate Amino Transf (AST/ SGOT) 29, Alanine Aminotransferase (ALT/SGPT) 17, Alkaline Phosphatase 219H, Total Protein 8.3, Albumin 3.6, Globulin 4.7, Albumin/Globulin Ratio 0.7L, Random Vancomycin Level 20.3 11/26/16 18:45: Sodium Level 132L, Potassium Level 6.3*H, Chloride Level 93L, Carbon Dioxide Level 18L, Anion Gap 21H, Blood Urea Nitrogen 112H, Creatinine 9.7H, Estimat Glomerular Filtration Rate 6.7, Glucose Level 126H, Calcium Level 7.5L Height (Feet): 6 Height (Inches): 6.00 Weight (Pounds): 189 General Appearance: WD/WN, no apparent distress EENT: PERRL/EOMI, TMs normal Neck: non-tender, normal alignment Cardiovascular: normal rate, regular rhythm, no JVD Respiratory/Chest: lungs clear Abdomen: normal bowel sounds, non tender, soft Extremities: trace edema 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
[2016-11-27] MEDS: Hydromorphone 0.5mg/0.5ml inj IVP PRN ×3 (07:30→17:36)
[2016-11-27 07:57] LABS: BASOPHILS % (AUTO) 1.5 % (0.0-2.0); LYMPHOCYTES % (AUTO) 28.4 % (20.0-45.0); MEAN CORPUSCULAR HEMOGLOBIN 26.4 PG (27.0-31.0); MEAN CORPUSCULAR HGB CONC 30.7 G/DL (32.0-36.0); MEAN CORPUSCULAR VOLUME 86 FL (80-99); MEAN PLATELET VOLUME 8.3 FL (6.5-10.1); MONOCYTES % (AUTO) 16.3 % (1.0-10.0); NEUTROPHILS % (AUTO) 49.7 % (45.0-75.0); PLATELET COUNT 298 K/UL (150-450); RED BLOOD COUNT 4.16 M/UL (4.70-6.10); RED CELL DISTRIBUTION WIDTH 20.1 % (11.6-14.8); WHITE BLOOD COUNT 6.3 K/UL (4.8-10.8)
[2016-11-27 08:12] LABS: CALCIUM 8.2 mg/dL (8.6-10.2); CREATININE 7.8 mg/dL (0.7-1.2); GLOMERULAR FILTRATION RATE 8.6 mL/min (>60); POTASSIUM 5.3 mEQ/L (3.4-4.9)
[2016-11-27 08:27] VITALS: BP 127/37
[2016-11-27] MEDS: Renvela 800mg Pkt ORAL SCH ×3 (08:29→17:36)
[2016-11-27] MEDS: VIRACEPT ORAL SCH ×2 (08:29→17:36)
[2016-11-27] MEDS: Renvela 2400 mg pkt ORAL SCH ×3 (08:30→17:36)
[2016-11-27] MEDS: oxyCODONE 5mg IR tab ORAL PRN ×3 (08:31→20:39)
[2016-11-27] MEDS: Sensipar 30mg Tab ORAL SCH (08:31)
[2016-11-27] MEDS: Fluconazole 100mg tab ORAL SCH (08:31)
[2016-11-27 09:43] LABS: MAGNESIUM 2.5 MG/DL (1.5-2.4)
[2016-11-27] MEDS ORDERED: Vancomycin 750mg/D5W 275ml IVPB ONE ×2 (12:00)
[2016-11-27 12:15] VITALS: BP 122/28
[2016-11-27] MEDS ORDERED: NS 275ml ONE (15:52)
[2016-11-27 16:15] VITALS: BP 122/27
--- NOTE | 2016-11-27 16:42 | Cardiac Electrophysiology PN ---
Assessment/Plan Status Narrative MIAN: Side lobe artifact refuting right atrial mass, the mass seen in the right atrial cavity with MIAN is image artifact of amplatzer device implanted for PFO closure. Eccentric regurgitant of mitral valve through prolapsed posterior leaflet consistent with severe MR Perforated vs cleft non-coronary cusp of the aortic valve leading to eccentric aortic regurgitation consistent with severe AR. Negative bubble study. Assessment/Plan 1. Bradycardia with sinus arrest and junctional rhythm. Ruled out myocardial infarction. Resolved. 2. Hypertension, on Norvasc 5 mg daily. 3. PAF in SR S/P ablation at [facility] in 2011. Had short run of atrial fib 4. Peripheral vascular disease, status post metatarsal amputation, on antibiotic with right foot ulcer. 5. HIV 6. Hepatitis C. 7. Larger right atrial echogenic material/mass. MIAN 11/24/16 showed no intracardiac thrombus. 8. Severe AI and MR 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 10. Viability study 10/31/16 showed 10% nonviable myocardium. 11. End-stage renal disease, on hemodialysis. NOE RN Subjective Subjective Comfortable on tele NAD in SR 80s getting dialysis. Had atrial fib with RVR that was self terminated. Objective Last 24 Hour Vital Signs Date Time Temp Pulse Resp B/P Pulse Ox O2 Delivery O2 Flow Rate FiO2 11/27/16 15:00 Room Air 11/27/16 12:15 98.2 80 14 122/28 93 Room Air 11/27/16 08:35 77 140/72 11/27/16 08:27 98.2 80 20 127/37 97 Room Air 11/27/16 07:56 97 Room Air 11/27/16 07:56 Room Air 11/27/16 04:30 84 18 96 Full Face 28 11/27/16 04:04 97.5 91 20 129/33 98 11/27/16 04:00 88 11/27/16 03:13 80 16 95 Full Face 11/26/16 23:49 97.7 89 20 141/35 99 Room Air 11/26/16 22:00 28 11/26/16 20:04 98.2 85 20 120/58 99 Room Air 11/26/16 19:30 Room Air 21 11/26/16 19:30 96 Room Air 11/26/16 17:42 Nasal Cannula 2.0 Intake and Output 11/26/16 11/27/16 19:00 07:00 Intake Total 320 ml Output Total 0 ml Balance 320 ml Intake Oral 320 ml Output Urine Total 0 ml # Voids 5 # Bowel Movements 2 Laboratory Tests Test 11/26/16 18:45 11/27/16 07:00 Sodium Level 132 mEQ/L (135-145) L 134 mEQ/L (135-145) L Potassium Level 6.3 mEQ/L (3.4-4.9) *H 5.3 mEQ/L (3.4-4.9) H Chloride Level 93 mEQ/L (98-107) L 98 mEQ/L (98-107) Carbon Dioxide Level 18 mEQ/L (20-30) L 19 mEQ/L (20-30) L Anion Gap 21 (5-15) H 17 (5-15) H Blood Urea Nitrogen 112 mg/dL (7-23) H 74 mg/dL (7-23) #H Creatinine 9.7 mg/dL (0.7-1.2) H 7.8 mg/dL (0.7-1.2) H Estimat Glomerular Filtration Rate 6.7 mL/min (>60) 8.6 mL/min (>60) Glucose Level 126 mg/dL (74-106) H 118 mg/dL (74-106) H Calcium Level 7.5 mg/dL (8.6-10.2) L 8.2 mg/dL (8.6-10.2) L White Blood Count 6.3 K/UL (4.8-10.8) Red Blood Count 4.16 M/UL (4.70-6.10) L Hemoglobin 11.0 G/DL (14.2-18.0) L Hematocrit 35.6 % (42.0-52.0) L Mean Corpuscular Volume 86 FL (80-99) Mean Corpuscular Hemoglobin 26.4 PG (27.0-31.0) L Mean Corpuscular Hemoglobin Concent 30.7 G/DL (32.0-36.0) L Red Cell Distribution Width 20.1 % (11.6-14.8) H Platelet Count 298 K/UL (150-450) Mean Platelet Volume 8.3 FL (6.5-10.1) Neutrophils (%) (Auto) 49.7 % (45.0-75.0) Lymphocytes (%) (Auto) 28.4 % (20.0-45.0) Monocytes (%) (Auto) 16.3 % (1.0-10.0) H Eosinophils (%) (Auto) 4.0 % (0.0-3.0) H Basophils (%) (Auto) 1.5 % (0.0-2.0) Magnesium Level 2.5 MG/DL (1.5-2.4) H Pro-B-Type Natriuretic Peptide 76234 pg/mL (0-125) H Objective HEAD AND NECK: No JVD. LUNGS: Decreased breath sounds.Dialysis Via left subclavian permcath. CARDIOVASCULAR: Shows regular S1 and S2. ABDOMEN: Soft. EXTREMITIES: No pitting edema. S/P right foot ulcer and left metatarsal amputation. CLIFTON KEARNEY Nov 27, 2016 16:42
--- NOTE | 2016-11-27 17:21 | Internal Med Progress Note ---
Subjective Date of Service: Nov 27, 2016 Physician Name Didier Jimenez Attending Physician Didier Jimenez Current Medications Medications (Trade) Dose Ordered Sig/Zohaib Route PRN Reason Start Time Stop Time Status Last Admin Dose Admin Amlodipine Besylate (Norvasc) 5 mg DAILY ORAL 11/18/16 09:00 12/18/16 08:59 11/27/16 08:35 Cefepime HCl/ Dextrose (Maxipime/D5W) 55 ml @ 110 mls/hr Q24H IVPB 11/24/16 01:00 11/30/16 00:59 11/27/16 01:00 Chlorhexidine Gluconate (Ebony-Hex 2%) 1 applic QHS TOPIC 11/17/16 21:00 12/17/16 20:59 11/26/16 21:00 Cinacalcet (Sensipar) 30 mg DAILY ORAL 11/18/16 09:00 12/18/16 08:59 11/27/16 08:31 Clopidogrel Bisulfate (Plavix) 75 mg DAILY ORAL 11/18/16 09:00 12/18/16 08:59 11/27/16 08:31 Emtricitabine (Emtriva) 200 mg WeSa@1800 ORAL 11/17/16 18:00 12/17/16 17:59 11/24/16 18:13 Fluconazole (Diflucan) 200 mg DAILY ORAL 11/24/16 09:00 11/30/16 08:59 11/27/16 08:31 Hydromorphone HCl (Dilaudid) 0.5 mg Q4H PRN IVP For Pain 7-11/24/16 16:15 12/01/16 16:14 11/27/16 11:44 Metronidazole (Flagyl) 500 mg Q8HR ORAL 11/23/16 22:00 11/30/16 21:59 11/27/16 13:05 Nateglinide (Starlix) 120 mg TIAC ORAL 11/17/16 16:30 12/17/16 16:29 11/27/16 11:43 Oxycodone HCl (Roxicodone) 5 mg Q4H PRN ORAL PAIN 4-6 11/24/16 16:15 12/01/16 16:14 11/27/16 14:12 Patient Own Medication (Patient's Own Med) 2 ea BID ORAL 11/17/16 18:00 12/17/16 17:59 11/27/16 08:29 Sevelamer Carbonate (Renvela) 2,400 mg THREE TIMES A DAY ORAL 11/24/16 08:32 12/17/16 17:59 11/27/16 12:25 Sevelamer Carbonate 1600 mg 1,600 mg TID ORAL 11/18/16 13:00 12/18/16 12:59 11/27/16 12:25 Sodium Chloride 1,000 ml @ 500 mls/hr Q2H PRN IVLG sbp<90 during hd 11/24/16 12:44 12/24/16 12:43 Tenofovir Disoproxil Fumarate (Viread) 300 mg Sa@1800 ORAL 11/17/16 21:00 12/17/16 20:59 11/25/16 17:05 Vancomycin HCl (Vanco rx to dose) 1 ea DAILY PRN MISC Per rx protocol 11/23/16 14:45 12/23/16 14:44 Allergies: Coded Allergies: HEPARIN (Verified Allergy, Severe, low platelets, 06/11/14) SULFA (SULFONAMIDE ANTIBIOTICS) (Verified Allergy, Severe, nephro toxic, ) ZOLPIDEM (Verified Allergy, Unknown, 05/03/16) MEROPENEM (Verified Adverse Reaction, Intermediate, 04/01/16) Nausea and vomiting Uncoded Allergies: pork products (Allergy, Severe, rashes, 06/11/14) ROS Limited/Unobtainable: No Constitutional: Reports: no symptoms HEENT: Reports: no symptoms Cardiovascular: Reports: no symptoms Respiratory: Reports: no symptoms Gastrointestinal/Abdominal: Reports: no symptoms Genitourinary: Reports: no symptoms Neurologic/Psychiatric: Reports: no symptoms Subjective 61 YO M admitted with shortness of breath, hypoglycemia and right diabetic foot ulcer. Now gangrene right foot with osteomyelitis. Await transfer to [facility] for vascular procedure. Objective Last Vital Signs Date Time Temp Pulse Resp B/P Pulse Ox O2 Delivery O2 Flow Rate FiO2 11/27/16 15:00 Room Air 11/27/16 12:15 98.2 80 14 122/28 93 11/27/16 07:56 21 11/26/16 17:42 2.0 Laboratory Tests Test 11/26/16 18:45 11/27/16 07:00 Sodium Level 132 mEQ/L (135-145) L 134 mEQ/L (135-145) L Potassium Level 6.3 mEQ/L (3.4-4.9) *H 5.3 mEQ/L (3.4-4.9) H Chloride Level 93 mEQ/L (98-107) L 98 mEQ/L (98-107) Carbon Dioxide Level 18 mEQ/L (20-30) L 19 mEQ/L (20-30) L Anion Gap 21 (5-15) H 17 (5-15) H Blood Urea Nitrogen 112 mg/dL (7-23) H 74 mg/dL (7-23) #H Creatinine 9.7 mg/dL (0.7-1.2) H 7.8 mg/dL (0.7-1.2) H Estimat Glomerular Filtration Rate 6.7 mL/min (>60) 8.6 mL/min (>60) Glucose Level 126 mg/dL (74-106) H 118 mg/dL (74-106) H Calcium Level 7.5 mg/dL (8.6-10.2) L 8.2 mg/dL (8.6-10.2) L White Blood Count 6.3 K/UL (4.8-10.8) Red Blood Count 4.16 M/UL (4.70-6.10) L Hemoglobin 11.0 G/DL (14.2-18.0) L Hematocrit 35.6 % (42.0-52.0) L Mean Corpuscular Volume 86 FL (80-99) Mean Corpuscular Hemoglobin 26.4 PG (27.0-31.0) L Mean Corpuscular Hemoglobin Concent 30.7 G/DL (32.0-36.0) L Red Cell Distribution Width 20.1 % (11.6-14.8) H Platelet Count 298 K/UL (150-450) Mean Platelet Volume 8.3 FL (6.5-10.1) Neutrophils (%) (Auto) 49.7 % (45.0-75.0) Lymphocytes (%) (Auto) 28.4 % (20.0-45.0) Monocytes (%) (Auto) 16.3 % (1.0-10.0) H Eosinophils (%) (Auto) 4.0 % (0.0-3.0) H Basophils (%) (Auto) 1.5 % (0.0-2.0) Magnesium Level 2.5 MG/DL (1.5-2.4) H Pro-B-Type Natriuretic Peptide 73269 pg/mL (0-125) H Intake and Output 11/26/16 11/27/16 19:00 07:00 Intake Total 320 ml Output Total 0 ml Balance 320 ml Intake Oral 320 ml Output Urine Total 0 ml # Voids 5 # Bowel Movements 2 Objective General Appearance: WD/WN, no apparent distress, alert EENT: PERRL/EOMI, normal ENT inspection, TMs normal Neck: non-tender, normal alignment, supple Cardiovascular: normal peripheral pulses, sinus bradycardia, regular rhythm, no gallop/murmur, no JVD Respiratory/Chest: chest wall non-tender, lungs clear, normal breath sounds, no respiratory distress, no accessory muscle use Abdomen: normal bowel sounds, non tender, soft, no organomegaly, no mass Extremities: right foot dressing clean and dry; normal range of motion 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 See podiatry consult note. cont vanco, cefepime and flagyl per ID (6) HIV disease Assessment & Plan: Continue HAART per ID (7) HTN (hypertension) Assessment & Plan: Continue metoprolol (8) Diabetes Assessment & Plan: Hypoglycemic on arrival. (9) ESRD (end stage renal disease) Assessment & Plan: Hemodialysis today 11/24/16. See nephrology note-Dr Bianchi (10) Bradycardia Assessment & Plan: See cardiology consult. D/C metoprolol and clonidine. (11) Osteomyelitis of ankle or foot, right, acute Assessment & Plan: See podiatry note. (12) Gangrene of right foot Assessment & Plan: Needs revascularization prior to surgery. See vasc surg note. (13) Right atrial mass Assessment & Plan: See cardiology note. 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 (16) Hyperkalemia Assessment & Plan: Last Hemodialysis 11/24/16 -see nephrology note. Assessment/Plan D/W social work transfer to [facility] for vascular procedure DIDIER JIMENEZ Nov 27, 2016 17:21
--- NOTE | 2016-11-27 17:39 | Infectious Diseases Prog Note ---
Assessment/Plan Assessment/Plan ASSESSMENT AND PLAN: 1. bilateral R>L foot wounds, right foot and heel infected wounds and necrosis/ ischemia/gangrene - wound culture with yeast, likely polymicrobial - MRI c/o osteo right ankle and possible right foot - wound culture with nicole, likely polymicrobial infection - podiatry and vascular surgery f/u noted - continue vancomycin, cefepime, flagy and diflucan - patient will need continued abx for osteo and until surgical intervention - failed outpatient zosyn - wound care per protocol - MIAN without vegetation, thrombus or - communicated with Dr. Thornton 2. patient getting treated for right heel/foot osteo as outpatient with vancomycin and zosyn based on most recent wound culture in my office 3. End-stage renal disease, on hemodialysis. 4. Hypertension and diabetes, hep c + 5. Human immunodeficiency virus. Continue antiretroviral treatment at this time from home, cd4 ordered. Pt f/u with Dr. Chinchilla for HIV care. 6. Blood sugar and blood pressure control for diabetes and hypertension, per primary. 7. Anemia. 8. Hemodialysis per Renal. 9. Transient ischemic attack. 10. Congestive heart failure. 11. History of osteomyelitis of left foot. 12. Hepatis C. 13. History of seizure. 14. Weakness. 15. Past medical history noted. 16. Allergies to Heparin, meropenem, sulfa, and Zolpidem. 17. MAR was noted. 18. Case was discussed with RN. 19. Social history is negative. 20. Family history is noncontributory. 21. Case discussed with Dr. Thornton. 22. Continue treatment per primary consultants. 23. Wound care protocol. 24. Podiatry followup. 25. Continue Vascular Surgery evaluation. 26. Hypoglycemia treatment per primary. Subjective Constitutional: Denies: fever HEENT: Denies: congestion Respiratory: Denies: shortness of breath Cardiovascular: Denies: chest pain Gastrointestinal/Abdominal: Denies: diarrhea, nausea, vomiting Genitourinary: Reports: other - no agarwal Neurologic: Denies: headache Psychiatric: Denies: depression Skin: Denies: rash Hematologic: Denies: bleeding Musculoskeletal: Denies: pain Allergies: Coded Allergies: HEPARIN (Verified Allergy, Severe, low platelets, 06/11/14) SULFA (SULFONAMIDE ANTIBIOTICS) (Verified Allergy, Severe, nephro toxic, ) ZOLPIDEM (Verified Allergy, Unknown, 05/03/16) MEROPENEM (Verified Adverse Reaction, Intermediate, 04/01/16) Nausea and vomiting Uncoded Allergies: pork products (Allergy, Severe, rashes, 06/11/14) Objective Vital Signs Last 24 Hour Vital Signs Date Time Temp Pulse Resp B/P Pulse Ox O2 Delivery O2 Flow Rate FiO2 11/27/16 16:15 98.2 78 16 122/27 96 Room Air 11/27/16 15:00 Room Air 11/27/16 12:15 98.2 80 14 122/28 93 Room Air 11/27/16 08:35 77 140/72 11/27/16 08:27 98.2 80 20 127/37 97 Room Air 11/27/16 07:56 97 Room Air 11/27/16 07:56 Room Air 11/27/16 04:30 84 18 96 Full Face 28 11/27/16 04:04 97.5 91 20 129/33 98 11/27/16 04:00 88 11/27/16 03:13 80 16 95 Full Face 28 11/26/16 23:49 97.7 89 20 141/35 99 Room Air 11/26/16 22:00 28 11/26/16 20:04 98.2 85 20 120/58 99 Room Air 11/26/16 19:30 Room Air 11/26/16 19:30 96 Room Air 11/26/16 17:42 Nasal Cannula 2.0 Height (Feet): 6 Height (Inches): 6.00 Weight (Pounds): 186 General Appearance: no acute distress HEENT: normocephalic, atraumatic, anicteric, mucous membranes moist, PERRL, EOMI, pharynx normal, supple, no JVD Respiratory/Chest: lungs clear, normal breath sounds, no respiratory distress, no accessory muscle use Cardiovascular: normal rate, regular rhythm, no gallop/murmur, no JVD Abdomen: normal bowel sounds, soft, non tender, no organomegaly, non distended Genitourinary: other - no agarwal Extremities: other - + ischemic changes and necrosis/gangrene changes right foot - no change Skin: no rash 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 Impression: Nonspecific, very small foci of abnormal signal at the dorsal heads of the first and fourth proximal phalanges. If there is evidence of active infection with ulcers in these 2 locations, osteomyelitis should be considered. Please correlate clinically. MIAN - no thrombus or vegetation per cardiology notes Microbiology Date/Time Source Procedure Growth Status 11/11/16 16:05 Blood Blood Culture - Final NO GROWTH AFTER 5 DAYS Complete 11/10/16 19:50 Nasal Nares MRSA Culture - Final NO METHICILLIN RESISTANT STAPH AUREUS... Complete 11/13/16 02:00 Foot Right Gram Stain - Final Complete 11/13/16 02:00 Aerobic Culture - Final Nicole Parapsilosis Complete 11/13/16 02:00 Foot Right Anaerobic Culture - Final NO ANAEROBES ISOLATED Complete Laboratory Tests Test 11/26/16 18:45 11/27/16 07:00 Sodium Level 132 mEQ/L (135-145) L 134 mEQ/L (135-145) L Potassium Level 6.3 mEQ/L (3.4-4.9) *H 5.3 mEQ/L (3.4-4.9) H Chloride Level 93 mEQ/L (98-107) L 98 mEQ/L (98-107) Carbon Dioxide Level 18 mEQ/L (20-30) L 19 mEQ/L (20-30) L Anion Gap 21 (5-15) H 17 (5-15) H Blood Urea Nitrogen 112 mg/dL (7-23) H 74 mg/dL (7-23) #H Creatinine 9.7 mg/dL (0.7-1.2) H 7.8 mg/dL (0.7-1.2) H Estimat Glomerular Filtration Rate 6.7 mL/min (>60) 8.6 mL/min (>60) Glucose Level 126 mg/dL (74-106) H 118 mg/dL (74-106) H Calcium Level 7.5 mg/dL (8.6-10.2) L 8.2 mg/dL (8.6-10.2) L White Blood Count 6.3 K/UL (4.8-10.8) Red Blood Count 4.16 M/UL (4.70-6.10) L Hemoglobin 11.0 G/DL (14.2-18.0) L Hematocrit 35.6 % (42.0-52.0) L Mean Corpuscular Volume 86 FL (80-99) Mean Corpuscular Hemoglobin 26.4 PG (27.0-31.0) L Mean Corpuscular Hemoglobin Concent 30.7 G/DL (32.0-36.0) L Red Cell Distribution Width 20.1 % (11.6-14.8) H Platelet Count 298 K/UL (150-450) Mean Platelet Volume 8.3 FL (6.5-10.1) Neutrophils (%) (Auto) 49.7 % (45.0-75.0) Lymphocytes (%) (Auto) 28.4 % (20.0-45.0) Monocytes (%) (Auto) 16.3 % (1.0-10.0) H Eosinophils (%) (Auto) 4.0 % (0.0-3.0) H Basophils (%) (Auto) 1.5 % (0.0-2.0) Magnesium Level 2.5 MG/DL (1.5-2.4) H Pro-B-Type Natriuretic Peptide 28340 pg/mL (0-125) H Current Medications Medications (Trade) Dose Ordered Sig/Zohaib Route PRN Reason Start Time Stop Time Status Last Admin Dose Admin Amlodipine Besylate (Norvasc) 5 mg DAILY ORAL 11/18/16 09:00 12/18/16 08:59 11/27/16 08:35 Cefepime HCl/ Dextrose (Maxipime/D5W) 55 ml @ 110 mls/hr Q24H IVPB 11/24/16 01:00 11/30/16 00:59 11/27/16 01:00 Chlorhexidine Gluconate (Ebony-Hex 2%) 1 applic QHS TOPIC 11/17/16 21:00 12/17/16 20:59 11/26/16 21:00 Cinacalcet (Sensipar) 30 mg DAILY ORAL 11/18/16 09:00 12/18/16 08:59 11/27/16 08:31 Clopidogrel Bisulfate (Plavix) 75 mg DAILY ORAL 11/18/16 09:00 12/18/16 08:59 11/27/16 08:31 Emtricitabine (Emtriva) 200 mg WeSa@1800 ORAL 11/17/16 18:00 12/17/16 17:59 11/24/16 18:13 Fluconazole (Diflucan) 200 mg DAILY ORAL 11/24/16 09:00 11/30/16 08:59 11/27/16 08:31 Hydromorphone HCl (Dilaudid) 0.5 mg Q4H PRN IVP For Pain 7-11/24/16 16:15 12/01/16 16:14 11/27/16 11:44 Metronidazole (Flagyl) 500 mg Q8HR ORAL 11/23/16 22:00 11/30/16 21:59 11/27/16 13:05 Nateglinide (Starlix) 120 mg TIAC ORAL 11/17/16 16:30 12/17/16 16:29 11/27/16 11:43 Oxycodone HCl (Roxicodone) 5 mg Q4H PRN ORAL PAIN 4-6 11/24/16 16:15 12/01/16 16:14 11/27/16 14:12 Patient Own Medication (Patient's Own Med) 2 ea BID ORAL 11/17/16 18:00 12/17/16 17:59 11/27/16 08:29 Sevelamer Carbonate (Renvela) 2,400 mg THREE TIMES A DAY ORAL 11/24/16 08:32 12/17/16 17:59 11/27/16 12:25 Sevelamer Carbonate 1600 mg 1,600 mg TID ORAL 11/18/16 13:00 12/18/16 12:59 11/27/16 12:25 Sodium Chloride 1,000 ml @ 500 mls/hr Q2H PRN IVLG sbp<90 during hd 11/24/16 12:44 12/24/16 12:43 Tenofovir Disoproxil Fumarate (Viread) 300 mg Sa@1800 ORAL 11/17/16 21:00 12/17/16 20:59 11/25/16 17:05 Vancomycin HCl (Vanco rx to dose) 1 ea DAILY PRN MISC Per rx protocol 11/23/16 14:45 12/23/16 14:44 INOCENCIA DOS SANTOS Nov 27, 2016 17:39
[2016-11-27 20:01] VITALS: BP 111/35
[2016-11-27] MEDS: Dyna-Hex 2% Top Sol 8oz TOPIC SCH (20:39)
[2016-11-28 00:10] VITALS: BP 140/34
[2016-11-28] MEDS: Cefepime HCl 0.5 GM in D5W 55 ML IVPB SCH (01:41)
[2016-11-28] MEDS: Hydromorphone 0.5mg/0.5ml inj IVP PRN ×5 (01:43→22:18)
[2016-11-28 03:53] VITALS: BP 130/36
[2016-11-28] MEDS: metroNIDAZOLE 500mg tab ORAL SCH ×3 (06:35→21:34)
[2016-11-28 08:20] VITALS: BP 141/47
[2016-11-28] MEDS: VIRACEPT ORAL SCH ×2 (09:03→18:09)
[2016-11-28] MEDS: Sensipar 30mg Tab ORAL SCH (09:04)
[2016-11-28] MEDS: Fluconazole 100mg tab ORAL SCH (09:05)
[2016-11-28] MEDS: Renvela 800mg Pkt ORAL SCH ×3 (09:07→18:08)
[2016-11-28] MEDS: oxyCODONE 5mg IR tab ORAL PRN ×3 (09:07→23:57)
[2016-11-28] MEDS: Renvela 2400 mg pkt ORAL SCH ×3 (09:08→18:09)
--- NOTE | 2016-11-28 11:18 | Internal Med Progress Note ---
Subjective Date of Service: Nov 28, 2016 Physician Name Didier Thornton Attending Physician Didier Thornton Current Medications Medications (Trade) Dose Ordered Sig/Zohaib Route PRN Reason Start Time Stop Time Status Last Admin Dose Admin Amlodipine Besylate (Norvasc) 5 mg DAILY ORAL 11/18/16 09:00 12/18/16 08:59 11/28/16 09:08 Cefepime HCl/ Dextrose (Maxipime/D5W) 55 ml @ 110 mls/hr Q24H IVPB 11/24/16 01:00 11/30/16 00:59 11/28/16 01:41 Chlorhexidine Gluconate (Ebony-Hex 2%) 1 applic QHS TOPIC 11/17/16 21:00 12/17/16 20:59 11/27/16 20:39 Cinacalcet (Sensipar) 30 mg DAILY ORAL 11/18/16 09:00 12/18/16 08:59 11/28/16 09:04 Clopidogrel Bisulfate (Plavix) 75 mg DAILY ORAL 11/18/16 09:00 12/18/16 08:59 11/28/16 09:03 Emtricitabine (Emtriva) 200 mg WeSa@1800 ORAL 11/17/16 18:00 12/17/16 17:59 11/24/16 18:13 Fluconazole (Diflucan) 200 mg DAILY ORAL 11/24/16 09:00 11/30/16 08:59 11/28/16 09:05 Hydromorphone HCl (Dilaudid) 0.5 mg Q4H PRN IVP For Pain 7-11/24/16 16:15 12/01/16 16:14 11/28/16 06:39 Metronidazole (Flagyl) 500 mg Q8HR ORAL 11/23/16 22:00 11/30/16 21:59 11/28/16 06:35 Nateglinide (Starlix) 120 mg TIAC ORAL 11/17/16 16:30 12/17/16 16:29 11/28/16 09:04 Oxycodone HCl (Roxicodone) 5 mg Q4H PRN ORAL PAIN 4-6 11/24/16 16:15 12/01/16 16:14 11/28/16 09:07 Patient Own Medication (Patient's Own Med) 2 ea BID ORAL 11/17/16 18:00 12/17/16 17:59 11/28/16 09:03 Sevelamer Carbonate (Renvela) 2,400 mg THREE TIMES A DAY ORAL 11/24/16 08:32 12/17/16 17:59 11/28/16 09:08 Sevelamer Carbonate 1600 mg 1,600 mg TID ORAL 11/18/16 13:00 12/18/16 12:59 11/28/16 09:07 Sodium Chloride 1,000 ml @ 500 mls/hr Q2H PRN IVLG sbp<90 during hd 11/24/16 12:44 12/24/16 12:43 Tenofovir Disoproxil Fumarate (Viread) 300 mg Sa@1800 ORAL 11/17/16 21:00 12/17/16 20:59 11/25/16 17:05 Vancomycin HCl (Vanco rx to dose) 1 ea DAILY PRN MISC Per rx protocol 11/23/16 14:45 12/23/16 14:44 Allergies: Coded Allergies: HEPARIN (Verified Allergy, Severe, low platelets, 06/11/14) SULFA (SULFONAMIDE ANTIBIOTICS) (Verified Allergy, Severe, nephro toxic, ) ZOLPIDEM (Verified Allergy, Unknown, 05/03/16) MEROPENEM (Verified Adverse Reaction, Intermediate, 04/01/16) Nausea and vomiting Uncoded Allergies: pork products (Allergy, Severe, rashes, 06/11/14) ROS Limited/Unobtainable: No Constitutional: Reports: no symptoms HEENT: Reports: no symptoms Cardiovascular: Reports: no symptoms Respiratory: Reports: no symptoms Gastrointestinal/Abdominal: Reports: no symptoms Genitourinary: Reports: no symptoms Subjective 61 YO M admitted with shortness of breath, hypoglycemia and right diabetic foot ulcer. Now gangrene right foot with osteomyelitis. Await transfer to [facility] for vascular procedure. Dialysis currently on hold-no dialysis co available today. Objective Last Vital Signs Date Time Temp Pulse Resp B/P Pulse Ox O2 Delivery O2 Flow Rate FiO2 11/28/16 09:08 90 141/47 11/28/16 08:20 98.2 19 98 Nasal Cannula 2.0 11/28/16 07:32 21 Intake and Output 11/27/16 11/28/16 19:00 07:00 Intake Total 200 ml 295 ml Output Total 2000 ml Balance -1800 ml 295 ml Intake Oral 200 ml 240 ml IV Total 55 ml Hemodialysis UF 2000 ml Objective General Appearance: WD/WN, no apparent distress, alert EENT: PERRL/EOMI, normal ENT inspection, TMs normal Neck: non-tender, normal alignment, supple Cardiovascular: normal peripheral pulses, sinus bradycardia, regular rhythm, no gallop/murmur, no JVD Respiratory/Chest: chest wall non-tender, lungs clear, normal breath sounds, no respiratory distress, no accessory muscle use Abdomen: normal bowel sounds, non tender, soft, no organomegaly, no mass Extremities: right foot dressing clean and dry; normal range of motion 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 See podiatry consult note. cont vanco, cefepime and flagyl per ID (6) HIV disease Assessment & Plan: Continue HAART per ID (7) HTN (hypertension) Assessment & Plan: Continue metoprolol (8) Diabetes Assessment & Plan: Hypoglycemic on arrival. (9) ESRD (end stage renal disease) Assessment & Plan: Unable to perform Hemodialysis today-dialysis nurse not available.. See nephrology note-Dr Medina (10) Bradycardia Assessment & Plan: See cardiology consult. D/C metoprolol and clonidine. (11) Osteomyelitis of ankle or foot, right, acute Assessment & Plan: See podiatry note. (12) Gangrene of right foot Assessment & Plan: Needs revascularization prior to surgery. See vasc surg note. (13) Right atrial mass Assessment & Plan: See cardiology note. 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 (16) Hyperkalemia Assessment & Plan: Last Hemodialysis 11/24/16 -see nephrology note. Status: progressing Assessment/Plan D/W social work transfer to [facility] for vascular procedure. Discussed with podiatry and ID DIDIER THORNTON Nov 28, 2016 11:18
[2016-11-28 11:30] VITALS: BP 123/35
[2016-11-28 12:41] LABS: BASOPHILS % (AUTO) 1.5 % (0.0-2.0); EOSINOPHILS % (AUTO) 4.3 % (0.0-3.0); MEAN CORPUSCULAR HEMOGLOBIN 25.2 PG (27.0-31.0); MEAN CORPUSCULAR HGB CONC 29.9 G/DL (32.0-36.0); MEAN CORPUSCULAR VOLUME 84 FL (80-99); MEAN PLATELET VOLUME 6.7 FL (6.5-10.1); MONOCYTES % (AUTO) 16.3 % (1.0-10.0); NEUTROPHILS % (AUTO) 45.9 % (45.0-75.0); PLATELET COUNT 291 K/UL (150-450); RED BLOOD COUNT 4.29 M/UL (4.70-6.10); RED CELL DISTRIBUTION WIDTH 20.2 % (11.6-14.8); WHITE BLOOD COUNT 4.5 K/UL (4.8-10.8)
--- NOTE | 2016-11-28 12:46 | Pulmonology Progress Note ---
Assessment/Plan Assessment/Plan 1. Sleep apnea. 2. Sepsis with shock. 3. Right foot osteomyelitis. 4. Chronic hepatitis. 5. OslerWeberRendu syndrome (hemorrhagic telangiectasia). 6. End-stage renal disease, on dialysis. 7. Diabetic autonomic neuropathy. 8. History of hypertension. 9. Human immunodeficiency virus. using BiPAP nightly planning transfer for surgery cont BiPAP stable pulm status Subjective Respiratory: Denies: dry cough, shortness of breath, sputum Allergies: Coded Allergies: HEPARIN (Verified Allergy, Severe, low platelets, 06/11/14) SULFA (SULFONAMIDE ANTIBIOTICS) (Verified Allergy, Severe, nephro toxic, ) ZOLPIDEM (Verified Allergy, Unknown, 05/03/16) MEROPENEM (Verified Adverse Reaction, Intermediate, 04/01/16) Nausea and vomiting Uncoded Allergies: pork products (Allergy, Severe, rashes, 06/11/14) Objective Last 24 Hour Vital Signs Date Time Temp Pulse Resp B/P Pulse Ox O2 Delivery O2 Flow Rate FiO2 11/28/16 11:30 98.0 91 20 123/35 98 Nasal Cannula 2.0 11/28/16 09:08 90 141/47 11/28/16 08:20 98.2 90 19 141/47 98 Nasal Cannula 2.0 11/28/16 07:32 Room Air 11/28/16 07:32 97 Room Air 11/28/16 05:45 88 15 95 Full Face 28 11/28/16 04:00 83 11/28/16 03:53 98.6 85 20 130/36 98 Bi-pap 11/28/16 02:58 85 22 94 Full Face 11/28/16 00:10 98.7 82 21 140/34 99 Bi-pap 11/28/16 00:00 82 11/28/16 00:00 28 11/27/16 22:00 28 11/27/16 21:53 81 28 95 Full Face 28 11/27/16 20:01 98.4 90 20 111/35 100 Room Air 11/27/16 20:00 96 11/27/16 19:00 96 Room Air 21 11/27/16 19:00 Room Air 21 11/27/16 18:30 Room Air 11/27/16 16:15 98.2 78 16 122/27 96 Room Air 11/27/16 16:00 78 11/27/16 15:00 Room Air Intake and Output 11/27/16 11/28/16 19:00 07:00 Intake Total 200 ml 295 ml Output Total 2000 ml Balance -1800 ml 295 ml Intake Oral 200 ml 240 ml IV Total 55 ml Hemodialysis UF 2000 ml General Appearance: no acute distress Respiratory/Chest: lungs clear Laboratory Tests 11/28/16 12:15: White Blood Count 4.5L, Red Blood Count 4.29L, Hemoglobin 10.8L, Hematocrit 36.2L, Mean Corpuscular Volume 84, Mean Corpuscular Hemoglobin 25.2L, Mean Corpuscular Hemoglobin Concent 29.9L, Red Cell Distribution Width 20.2H, Platelet Count 291, Mean Platelet Volume 6.7, Neutrophils (%) (Auto) 45.9, Lymphocytes (%) (Auto) 32.0, Monocytes (%) (Auto) 16.3H, Eosinophils (%) (Auto) 4.3H, Basophils (%) (Auto) 1.5, Sodium Level [Pending], Potassium Level [Pending ], Chloride Level [Pending], Carbon Dioxide Level [Pending], Blood Urea Nitrogen [Pending], Creatinine [Pending], Estimat Glomerular Filtration Rate [ Pending], Glucose Level [Pending], Calcium Level [Pending] Current Medications Medications (Trade) Dose Ordered Sig/Zohaib Route PRN Reason Start Time Stop Time Status Last Admin Dose Admin Amlodipine Besylate (Norvasc) 5 mg DAILY ORAL 11/18/16 09:00 12/18/16 08:59 11/28/16 09:08 Cefepime HCl/ Dextrose (Maxipime/D5W) 55 ml @ 110 mls/hr Q24H IVPB 11/24/16 01:00 11/30/16 00:59 11/28/16 01:41 Chlorhexidine Gluconate (Ebony-Hex 2%) 1 applic QHS TOPIC 11/17/16 21:00 12/17/16 20:59 11/27/16 20:39 Cinacalcet (Sensipar) 30 mg DAILY ORAL 11/18/16 09:00 12/18/16 08:59 11/28/16 09:04 Clopidogrel Bisulfate (Plavix) 75 mg DAILY ORAL 11/18/16 09:00 12/18/16 08:59 11/28/16 09:03 Emtricitabine (Emtriva) 200 mg WeSa@1800 ORAL 11/17/16 18:00 12/17/16 17:59 11/24/16 18:13 Fluconazole (Diflucan) 200 mg DAILY ORAL 11/24/16 09:00 11/30/16 08:59 11/28/16 09:05 Hydromorphone HCl (Dilaudid) 0.5 mg Q4H PRN IVP For Pain 7-11/24/16 16:15 12/01/16 16:14 11/28/16 06:39 Metronidazole (Flagyl) 500 mg Q8HR ORAL 11/23/16 22:00 11/30/16 21:59 11/28/16 06:35 Nateglinide (Starlix) 120 mg TIAC ORAL 11/17/16 16:30 12/17/16 16:29 11/28/16 09:04 Oxycodone HCl (Roxicodone) 5 mg Q4H PRN ORAL PAIN 4-6 11/24/16 16:15 12/01/16 16:14 11/28/16 09:07 Patient Own Medication (Patient's Own Med) 2 ea BID ORAL 11/17/16 18:00 12/17/16 17:59 11/28/16 09:03 Sevelamer Carbonate (Renvela) 2,400 mg THREE TIMES A DAY ORAL 11/24/16 08:32 12/17/16 17:59 11/28/16 09:08 Sevelamer Carbonate 1600 mg 1,600 mg TID ORAL 11/18/16 13:00 12/18/16 12:59 11/28/16 09:07 Sodium Chloride 1,000 ml @ 500 mls/hr Q2H PRN IVLG sbp<90 during hd 11/24/16 12:44 12/24/16 12:43 Tenofovir Disoproxil Fumarate (Viread) 300 mg Sa@1800 ORAL 11/17/16 21:00 12/17/16 20:59 11/25/16 17:05 Vancomycin HCl (Vanco rx to dose) 1 ea DAILY PRN MISC Per rx protocol 11/23/16 14:45 12/23/16 14:44 COSME DE OLIVEIRA Nov 28, 2016 12:46
[2016-11-28 12:55] LABS: CALCIUM 8.1 mg/dL (8.6-10.2); CREATININE 6.7 mg/dL (0.7-1.2); GLOMERULAR FILTRATION RATE 10.2 mL/min (>60); POTASSIUM 4.7 mEQ/L (3.4-4.9)
[2016-11-28 15:49] VITALS: BP 113/32
--- NOTE | 2016-11-28 16:17 | Cardiology Report ---
APPROVED REPORT EKG Measurement Heart [id number] OK [id number] Sinus rhythm with premature atrial complexes Possible Left atrial enlargement Left anterior fascicular block Left ventricular hypertrophy Cannot rule out Septal infarct, age undetermined Prolonged QT Abnormal ECG
--- NOTE | 2016-11-28 17:05 | Cardiac Electrophysiology PN ---
Assessment/Plan Status Narrative MIAN: Side lobe artifact refuting right atrial mass, the mass seen in the right atrial cavity with MIAN is image artifact of amplatzer device implanted for PFO closure. Eccentric regurgitant of mitral valve through prolapsed posterior leaflet consistent with severe MR Perforated vs cleft non-coronary cusp of the aortic valve leading to eccentric aortic regurgitation consistent with severe AR. Negative bubble study. Assessment/Plan 1. Bradycardia with sinus arrest and junctional rhythm. Ruled out myocardial infarction. Resolved. 2. Hypertension, on Norvasc 5 mg daily. 3. PAF in SR S/P ablation at [facility] in 2011. Had short run of atrial fib again today.Keep off AAs in view of tom episodes. 4. Peripheral vascular disease, status post metatarsal amputation, on antibiotic with right foot ulcer. 5. HIV 6. Hepatitis C. 7. Larger right atrial echogenic material/mass. MIAN 11/24/16 showed no intracardiac thrombus. 8. Severe AI and MR 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 10. Viability study 10/31/16 showed 10% nonviable myocardium. 11. End-stage renal disease, on hemodialysis. NOE RN Subjective Subjective Comfortable on tele NAD in SR . Had atrial fib in low 100s at 10 again that lasted about an hour. Objective Last 24 Hour Vital Signs Date Time Temp Pulse Resp B/P Pulse Ox O2 Delivery O2 Flow Rate FiO2 11/28/16 15:49 97.6 86 20 113/32 97 Nasal Cannula 2.0 11/28/16 12:00 95 11/28/16 11:30 98.0 91 20 123/35 98 Nasal Cannula 2.0 11/28/16 09:08 90 141/47 11/28/16 08:20 98.2 90 19 141/47 98 Nasal Cannula 2.0 11/28/16 08:00 91 11/28/16 07:32 Room Air 21 11/28/16 07:32 97 Room Air 21 11/28/16 05:45 88 15 95 Full Face 28 11/28/16 04:00 83 11/28/16 03:53 98.6 85 20 130/36 98 Bi-pap 11/28/16 02:58 85 22 94 Full Face 28 11/28/16 00:10 98.7 82 21 140/34 99 Bi-pap 11/28/16 00:00 82 11/28/16 00:00 28 11/27/16 22:00 28 11/27/16 21:53 81 28 95 Full Face 28 11/27/16 20:01 98.4 90 20 111/35 100 Room Air 11/27/16 20:00 96 11/27/16 19:00 96 Room Air 21 11/27/16 19:00 Room Air 21 11/27/16 18:30 Room Air Intake and Output 11/27/16 11/28/16 19:00 07:00 Intake Total 200 ml 295 ml Output Total 2000 ml Balance -1800 ml 295 ml Intake Oral 200 ml 240 ml IV Total 55 ml Hemodialysis UF 2000 ml Laboratory Tests Test 11/28/16 12:15 White Blood Count 4.5 K/UL (4.8-10.8) L Red Blood Count 4.29 M/UL (4.70-6.10) L Hemoglobin 10.8 G/DL (14.2-18.0) L Hematocrit 36.2 % (42.0-52.0) L Mean Corpuscular Volume 84 FL (80-99) Mean Corpuscular Hemoglobin 25.2 PG (27.0-31.0) L Mean Corpuscular Hemoglobin Concent 29.9 G/DL (32.0-36.0) L Red Cell Distribution Width 20.2 % (11.6-14.8) H Platelet Count 291 K/UL (150-450) Mean Platelet Volume 6.7 FL (6.5-10.1) Neutrophils (%) (Auto) 45.9 % (45.0-75.0) Lymphocytes (%) (Auto) 32.0 % (20.0-45.0) Monocytes (%) (Auto) 16.3 % (1.0-10.0) H Eosinophils (%) (Auto) 4.3 % (0.0-3.0) H Basophils (%) (Auto) 1.5 % (0.0-2.0) Sodium Level 134 mEQ/L (135-145) L Potassium Level 4.7 mEQ/L (3.4-4.9) Chloride Level 94 mEQ/L (98-107) L Carbon Dioxide Level 22 mEQ/L (20-30) Anion Gap 18 (5-15) H Blood Urea Nitrogen 64 mg/dL (7-23) H Creatinine 6.7 mg/dL (0.7-1.2) H Estimat Glomerular Filtration Rate 10.2 mL/min (>60) Glucose Level 212 mg/dL (74-106) H Calcium Level 8.1 mg/dL (8.6-10.2) L Objective HEAD AND NECK: No JVD. LUNGS: Decreased breath sounds.Dialysis Via left subclavian PermCath. CARDIOVASCULAR: Shows regular S1 and S2. ABDOMEN: Soft. EXTREMITIES: No pitting edema. S/P right foot ulcer and left metatarsal amputation. CLIFTON KEARNEY Nov 28, 2016 17:05
[2016-11-28] MEDS: Emtricitabine 200mg tab ORAL SCH (18:00)
[2016-11-28 20:00] VITALS: BP 134/34
--- NOTE | 2016-11-28 21:26 | Nephrology Progress Note ---
Assessment/Plan Assessment 1) ESRD 2) PVD 3) Recirculation with poor dialysis clearance 4) Osteo of R foot Plan: Continue IV ATB No dialysis service could do dialysis today Subjective Subjective He is doing status quo, he had Hd yesterday , The dialysis today was not done even though was ordered Objective Objective Last 24 Hour Vital Signs Date Time Temp Pulse Resp B/P Pulse Ox O2 Delivery O2 Flow Rate FiO2 11/28/16 20:31 Room Air 11/28/16 20:31 99 Room Air 11/28/16 20:00 98.2 89 20 134/34 99 Room Air 11/28/16 16:00 88 11/28/16 15:49 97.6 86 20 113/32 97 Nasal Cannula 2.0 11/28/16 12:00 95 11/28/16 11:30 98.0 91 20 123/35 98 Nasal Cannula 2.0 11/28/16 09:08 90 141/47 11/28/16 08:20 98.2 90 19 141/47 98 Nasal Cannula 2.0 11/28/16 08:00 91 11/28/16 07:32 Room Air 21 11/28/16 07:32 97 Room Air 21 11/28/16 05:45 88 15 95 Full Face 28 11/28/16 04:00 83 11/28/16 03:53 98.6 85 20 130/36 98 Bi-pap 11/28/16 02:58 85 22 94 Full Face 28 11/28/16 00:10 98.7 82 21 140/34 99 Bi-pap 11/28/16 00:00 82 11/28/16 00:00 28 11/27/16 22:00 28 11/27/16 21:53 81 28 95 Full Face 28 Intake and Output 11/27/16 11/28/16 19:00 07:00 Intake Total 200 ml 295 ml Output Total 2000 ml Balance -1800 ml 295 ml Intake Oral 200 ml 240 ml IV Total 55 ml Hemodialysis UF 2000 ml Laboratory Tests 11/28/16 12:15: White Blood Count 4.5L, Red Blood Count 4.29L, Hemoglobin 10.8L, Hematocrit 36.2L, Mean Corpuscular Volume 84, Mean Corpuscular Hemoglobin 25.2L, Mean Corpuscular Hemoglobin Concent 29.9L, Red Cell Distribution Width 20.2H, Platelet Count 291, Mean Platelet Volume 6.7, Neutrophils (%) (Auto) 45.9, Lymphocytes (%) (Auto) 32.0, Monocytes (%) (Auto) 16.3H, Eosinophils (%) (Auto) 4.3H, Basophils (%) (Auto) 1.5, Sodium Level 134L, Potassium Level 4.7, Chloride Level 94L, Carbon Dioxide Level 22, Anion Gap 18H, Blood Urea Nitrogen 64H, Creatinine 6.7H, Estimat Glomerular Filtration Rate 10.2, Glucose Level 212H, Calcium Level 8.1L Height (Feet): 6 Height (Inches): 6.00 Weight (Pounds): 189 General Appearance: WD/WN, no apparent distress EENT: PERRL/EOMI, normal ENT inspection Neck: normal alignment Cardiovascular: no JVD Respiratory/Chest: chest wall non-tender, lungs clear Extremities: normal range of motion 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
[2016-11-28] MEDS: Dyna-Hex 2% Top Sol 8oz TOPIC SCH (21:34)
[2016-11-29] VITALS (7 sets, daily range): BP systolic 114–142; BP diastolic 30–48
[2016-11-29] MEDS: Cefepime HCl 0.5 GM in D5W 55 ML IVPB SCH ×2 (03:23→03:25)
[2016-11-29] MEDS: Hydromorphone 0.5mg/0.5ml inj IVP PRN ×4 (03:24→21:05)
[2016-11-29] MEDS: metroNIDAZOLE 500mg tab ORAL SCH ×3 (06:24→23:18)
[2016-11-29] MEDS: oxyCODONE 5mg IR tab ORAL PRN (06:27)
[2016-11-29 07:23] LABS: BASOPHILS % (AUTO) 1.6 % (0.0-2.0); EOSINOPHILS % (AUTO) 5.3 % (0.0-3.0); LYMPHOCYTES % (AUTO) 29.2 % (20.0-45.0); MEAN CORPUSCULAR HEMOGLOBIN 25.7 PG (27.0-31.0); MEAN CORPUSCULAR HGB CONC 29.8 G/DL (32.0-36.0); MEAN CORPUSCULAR VOLUME 86 FL (80-99); MEAN PLATELET VOLUME 6.8 FL (6.5-10.1); MONOCYTES % (AUTO) 15.2 % (1.0-10.0); NEUTROPHILS % (AUTO) 48.7 % (45.0-75.0); PLATELET COUNT 284 K/UL (150-450); RED BLOOD COUNT 4.31 M/UL (4.70-6.10); RED CELL DISTRIBUTION WIDTH 20.2 % (11.6-14.8); WHITE BLOOD COUNT 6.1 K/UL (4.8-10.8)
[2016-11-29 07:57] LABS: CALCIUM 8.8 mg/dL (8.6-10.2); CREATININE 5.9 mg/dL (0.7-1.2); GLOMERULAR FILTRATION RATE 11.9 mL/min (>60); POTASSIUM 4.3 mEQ/L (3.4-4.9)
[2016-11-29] MEDS: VIRACEPT ORAL SCH ×2 (08:28→18:57)
[2016-11-29] MEDS: Fluconazole 100mg tab ORAL SCH (08:29)
[2016-11-29] MEDS: Renvela 2400 mg pkt ORAL SCH ×3 (08:32→18:57)
[2016-11-29] MEDS: Sensipar 30mg Tab ORAL SCH (08:32)
[2016-11-29] MEDS: Renvela 800mg Pkt ORAL SCH ×3 (09:48→18:57)
--- NOTE | 2016-11-29 12:32 | Infectious Diseases Prog Note ---
Assessment/Plan Assessment/Plan ASSESSMENT AND PLAN: 1. right foot and heel infected wounds and necrosis/ischemia/gangrene - wound culture with yeast, likely polymicrobial - MRI c/o osteo right ankle and possible right foot - wound culture with nicole, likely polymicrobial infection - podiatry and vascular surgery f/u noted - significant problem with foot is ischemic - continue vancomycin, cefepime, flagy and diflucan - patient will need continued abx for osteo and until surgical intervention - iv abx have been ordered/arranged and oral scripts written for the next two weeks until further w/u, surgery etc, d/w RN about antibiotics - weekly labs have been ordered also, d/w RN. Patient to f/u with me in two weeks, d/w RN. - wound care per protocol - MIAN without vegetation or thrombus 2. patient getting treated for right heel/foot osteo as outpatient with vancomycin and zosyn based on most recent wound culture in my office 3. End-stage renal disease, on hemodialysis. 4. Hypertension and diabetes, hep c + 5. Human immunodeficiency virus. Continue antiretroviral treatment at this time from home, cd4 ordered. Pt f/u with Dr. Chinchilla for HIV care. 6. Blood sugar and blood pressure control for diabetes and hypertension, per primary. 7. Anemia. 8. Hemodialysis per Renal. 9. Transient ischemic attack. 10. Congestive heart failure. 11. History of osteomyelitis of left foot. 12. Hepatis C. 13. History of seizure. 14. Weakness. 15. Past medical history noted. 16. Allergies to Heparin, meropenem, sulfa, and Zolpidem. 17. MAR was noted. 18. Case was discussed with RN. 19. Social history is negative. 20. Family history is noncontributory. 21. Case discussed with Dr. Thornton. 22. Continue treatment per primary consultants. 23. Wound care protocol. 24. Podiatry followup. 25. Continue Vascular Surgery evaluation. 26. Hypoglycemia treatment per primary. Subjective Constitutional: Denies: fever HEENT: Denies: congestion Respiratory: Denies: shortness of breath Cardiovascular: Denies: chest pain Gastrointestinal/Abdominal: Denies: diarrhea, nausea, vomiting Genitourinary: Denies: dysuria Neurologic: Denies: headache Psychiatric: Denies: depression Skin: Denies: rash Hematologic: Denies: bleeding Musculoskeletal: Reports: pain - controlled Allergies: Coded Allergies: HEPARIN (Verified Allergy, Severe, low platelets, 06/11/14) SULFA (SULFONAMIDE ANTIBIOTICS) (Verified Allergy, Severe, nephro toxic, ) ZOLPIDEM (Verified Allergy, Unknown, 05/03/16) MEROPENEM (Verified Adverse Reaction, Intermediate, 04/01/16) Nausea and vomiting Uncoded Allergies: pork products (Allergy, Severe, rashes, 06/11/14) Objective Vital Signs Last 24 Hour Vital Signs Date Time Temp Pulse Resp B/P Pulse Ox O2 Delivery O2 Flow Rate FiO2 11/29/16 12:00 97.7 84 18 114/48 97 Room Air 11/29/16 09:02 Room Air 11/29/16 09:02 Room Air 11/29/16 08:32 92 141/45 11/29/16 08:00 98.4 92 18 141/45 97 Room Air 11/29/16 04:00 102 11/29/16 04:00 98.1 98 18 137/41 99 Room Air 11/29/16 00:00 98.4 89 18 125/32 99 Room Air 11/29/16 00:00 88 11/28/16 23:59 87 18 98 Full Face 28 11/28/16 20:31 Room Air 11/28/16 20:31 99 Room Air 11/28/16 20:00 98.2 89 20 134/34 99 Room Air 11/28/16 20:00 87 11/28/16 16:00 88 11/28/16 15:49 97.6 86 20 113/32 97 Nasal Cannula 2.0 Height (Feet): 6 Height (Inches): 6.00 Weight (Pounds): 177 General Appearance: no acute distress HEENT: normocephalic, atraumatic, anicteric, mucous membranes moist, PERRL, EOMI, pharynx normal, supple, no JVD Respiratory/Chest: lungs clear, normal breath sounds, no respiratory distress, no accessory muscle use Cardiovascular: normal rate, regular rhythm, no gallop/murmur, no JVD Abdomen: normal bowel sounds, soft, non tender, no organomegaly, non distended Genitourinary: other - no agarwal Extremities: other - right foot and heel examined with RN - ischemic changes noted, heel wound with some slough, no odor Skin: no rash Neurologic/Psychiatric: donor specialist II-XII grossly normal, alert, oriented x 3 Lymphatic: no neck adenopathy Musculoskeletal: no effusion Objective bilateral foot x-rays - no osteo chest x-ray - atx MRI - right ankle and foot: Impression: Acute osteomyelitis involving the posterior plantar aspect of the calcaneus adjacent to a large ulcer. Impression: Nonspecific, very small foci of abnormal signal at the dorsal heads of the first and fourth proximal phalanges. If there is evidence of active infection with ulcers in these 2 locations, osteomyelitis should be considered. Please correlate clinically. MIAN - no thrombus or vegetation per cardiology notes Laboratory Tests Test 11/29/16 06:20 White Blood Count 6.1 K/UL (4.8-10.8) Red Blood Count 4.31 M/UL (4.70-6.10) L Hemoglobin 11.1 G/DL (14.2-18.0) L Hematocrit 37.1 % (42.0-52.0) L Mean Corpuscular Volume 86 FL (80-99) Mean Corpuscular Hemoglobin 25.7 PG (27.0-31.0) L Mean Corpuscular Hemoglobin Concent 29.8 G/DL (32.0-36.0) L Red Cell Distribution Width 20.2 % (11.6-14.8) H Platelet Count 284 K/UL (150-450) Mean Platelet Volume 6.8 FL (6.5-10.1) Neutrophils (%) (Auto) 48.7 % (45.0-75.0) Lymphocytes (%) (Auto) 29.2 % (20.0-45.0) Monocytes (%) (Auto) 15.2 % (1.0-10.0) H Eosinophils (%) (Auto) 5.3 % (0.0-3.0) H Basophils (%) (Auto) 1.6 % (0.0-2.0) Sodium Level 132 mEQ/L (135-145) L Potassium Level 4.3 mEQ/L (3.4-4.9) Chloride Level 94 mEQ/L (98-107) L Carbon Dioxide Level 23 mEQ/L (20-30) Anion Gap 15 (5-15) Blood Urea Nitrogen 51 mg/dL (7-23) H Creatinine 5.9 mg/dL (0.7-1.2) H Estimat Glomerular Filtration Rate 11.9 mL/min (>60) Glucose Level 138 mg/dL (74-106) H Calcium Level 8.8 mg/dL (8.6-10.2) Random Vancomycin Level 18.2 ug/mL Current Medications Medications (Trade) Dose Ordered Sig/Zohaib Route PRN Reason Start Time Stop Time Status Last Admin Dose Admin Amlodipine Besylate (Norvasc) 5 mg DAILY ORAL 11/18/16 09:00 12/18/16 08:59 11/29/16 08:32 Cefepime HCl/ Dextrose (Maxipime/D5W) 55 ml @ 110 mls/hr Q24H IVPB 11/24/16 01:00 11/30/16 00:59 11/29/16 03:25 Chlorhexidine Gluconate (Ebony-Hex 2%) 1 applic QHS TOPIC 11/17/16 21:00 12/17/16 20:59 11/28/16 21:34 Cinacalcet (Sensipar) 30 mg DAILY ORAL 11/18/16 09:00 12/18/16 08:59 11/29/16 08:32 Clopidogrel Bisulfate (Plavix) 75 mg DAILY ORAL 11/18/16 09:00 12/18/16 08:59 11/29/16 08:29 Emtricitabine (Emtriva) 200 mg WeSa@1800 ORAL 11/17/16 18:00 12/17/16 17:59 11/24/16 18:13 Fluconazole (Diflucan) 200 mg DAILY ORAL 11/24/16 09:00 11/30/16 08:59 11/29/16 08:29 Hydromorphone HCl (Dilaudid) 0.5 mg Q4H PRN IVP For Pain 7-11/24/16 16:15 12/01/16 16:14 11/29/16 09:50 Metronidazole (Flagyl) 500 mg Q8HR ORAL 11/23/16 22:00 11/30/16 21:59 11/29/16 06:24 Nateglinide (Starlix) 120 mg TIAC ORAL 11/17/16 16:30 12/17/16 16:29 11/29/16 11:48 Oxycodone HCl 5 mg 5 mg Q4H PRN ORAL PAIN 4-6 11/24/16 16:15 12/01/16 16:14 11/29/16 06:27 Patient Own Medication (Patient's Own Med) 2 ea BID ORAL 11/17/16 18:00 12/17/16 17:59 11/29/16 08:28 Sevelamer Carbonate (Renvela) 2,400 mg THREE TIMES A DAY ORAL 11/24/16 08:32 12/17/16 17:59 11/29/16 08:32 Sevelamer Carbonate 1600 mg 1,600 mg TID ORAL 11/18/16 13:00 12/18/16 12:59 11/29/16 09:48 Sodium Chloride 1,000 ml @ 500 mls/hr Q2H PRN IVLG sbp<90 during hd 11/24/16 12:44 12/24/16 12:43 Tenofovir Disoproxil Fumarate (Viread) 300 mg Sa@1800 ORAL 11/17/16 21:00 12/17/16 20:59 11/25/16 17:05 Vancomycin HCl (Vanco rx to dose) 1 ea DAILY PRN MISC Per rx protocol 11/23/16 14:45 12/23/16 14:44 Vancomycin HCl/ Dextrose (Vancomycin/D5W) 275 ml @ 183.708 mls/hr ONCE ONCE IVPB 11/29/16 20:00 11/29/16 21:29 INOCENCIA DOS SANTOS Nov 29, 2016 12:32
[2016-11-29] MEDS ORDERED: Vancomycin 750mg/D5W 275ml IVPB ONE ×4 (13:00→20:00)
--- NOTE | 2016-11-29 14:29 | Diagnostic Imaging Report ---
APPROVED REPORT CPT Code: 96150 Present Symptoms Comments: Osteomyelitis Chronic bilateral heel ulcers BILATERAL: Imaging reveals a patent deep venous system bilaterally. There is no evidence of thrombus within the femoral, popliteal or tibial segments. The greater saphenous veins are also within normal limits. Doppler indicates normal spontaneous flow within these segments.
--- NOTE | 2016-11-29 16:30 | Cardiac Electrophysiology PN ---
Assessment/Plan Status Narrative MIAN: Side lobe artifact refuting right atrial mass, the mass seen in the right atrial cavity with MIAN is image artifact of amplatzer device implanted for PFO closure. Eccentric regurgitant of mitral valve through prolapsed posterior leaflet consistent with severe MR Perforated vs cleft non-coronary cusp of the aortic valve leading to eccentric aortic regurgitation consistent with severe AR. Negative bubble study. Assessment/Plan 1. Bradycardia with sinus arrest and junctional rhythm. Ruled out myocardial infarction. Resolved. 2. Hypertension, on Norvasc 5 mg daily. 3. PAF in SR S/P ablation at [facility] in 2011. Had short run of atrial fib again yesterday.Keep off AAs in view of tom episodes. 4. Peripheral vascular disease, status post metatarsal amputation, on antibiotic with right foot ulcer. 5. HIV 6. Hepatitis C. 7. Larger right atrial echogenic material/mass. MIAN 11/24/16 showed no intracardiac thrombus. 8. Severe AI and MR. ? Double valve surgery as out patient. 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 10. Viability study 10/31/16 showed 10% nonviable myocardium. 11. End-stage renal disease, on hemodialysis. NOE RN Subjective Subjective Comfortable on tele NAD in SR .Had dialysis last night. No recurrence of atrial fib. Objective Last 24 Hour Vital Signs Date Time Temp Pulse Resp B/P Pulse Ox O2 Delivery O2 Flow Rate FiO2 11/29/16 16:00 98.3 79 18 142/45 96 Room Air 11/29/16 12:00 97.7 84 18 114/48 97 Room Air 11/29/16 09:02 Room Air 11/29/16 09:02 Room Air 11/29/16 08:32 92 141/45 11/29/16 08:00 98.4 92 18 141/45 97 Room Air 11/29/16 04:00 102 11/29/16 04:00 98.1 98 18 137/41 99 Room Air 11/29/16 00:00 98.4 89 18 125/32 99 Room Air 11/29/16 00:00 88 11/28/16 23:59 87 18 98 Full Face 28 11/28/16 20:31 Room Air 11/28/16 20:31 99 Room Air 11/28/16 20:00 98.2 89 20 134/34 99 Room Air 11/28/16 20:00 87 Intake and Output 11/28/16 11/29/16 19:00 07:00 Intake Total 400 ml 240 ml Output Total 0 ml Balance 400 ml 240 ml Intake Oral 400 ml 240 ml Output Urine Total 0 ml # Bowel Movements 1 Laboratory Tests Test 11/29/16 06:20 White Blood Count 6.1 K/UL (4.8-10.8) Red Blood Count 4.31 M/UL (4.70-6.10) L Hemoglobin 11.1 G/DL (14.2-18.0) L Hematocrit 37.1 % (42.0-52.0) L Mean Corpuscular Volume 86 FL (80-99) Mean Corpuscular Hemoglobin 25.7 PG (27.0-31.0) L Mean Corpuscular Hemoglobin Concent 29.8 G/DL (32.0-36.0) L Red Cell Distribution Width 20.2 % (11.6-14.8) H Platelet Count 284 K/UL (150-450) Mean Platelet Volume 6.8 FL (6.5-10.1) Neutrophils (%) (Auto) 48.7 % (45.0-75.0) Lymphocytes (%) (Auto) 29.2 % (20.0-45.0) Monocytes (%) (Auto) 15.2 % (1.0-10.0) H Eosinophils (%) (Auto) 5.3 % (0.0-3.0) H Basophils (%) (Auto) 1.6 % (0.0-2.0) Sodium Level 132 mEQ/L (135-145) L Potassium Level 4.3 mEQ/L (3.4-4.9) Chloride Level 94 mEQ/L (98-107) L Carbon Dioxide Level 23 mEQ/L (20-30) Anion Gap 15 (5-15) Blood Urea Nitrogen 51 mg/dL (7-23) H Creatinine 5.9 mg/dL (0.7-1.2) H Estimat Glomerular Filtration Rate 11.9 mL/min (>60) Glucose Level 138 mg/dL (74-106) H Calcium Level 8.8 mg/dL (8.6-10.2) Random Vancomycin Level 18.2 ug/mL Objective HEAD AND NECK: No JVD. LUNGS: Decreased breath sounds.Dialysis Via left subclavian PermCath. CARDIOVASCULAR: Shows regular S1 and S2. ABDOMEN: Soft. EXTREMITIES: No pitting edema. S/P right foot ulcer and left metatarsal amputation. CLIFTON KEARNEY Nov 29, 2016 16:30
--- NOTE | 2016-11-29 17:46 | Internal Med Progress Note ---
Subjective Date of Service: Nov 29, 2016 Physician Name Didier Thornton Attending Physician Didier Thornton Current Medications Medications (Trade) Dose Ordered Sig/Zohaib Route PRN Reason Start Time Stop Time Status Last Admin Dose Admin Amlodipine Besylate (Norvasc) 5 mg DAILY ORAL 11/18/16 09:00 12/18/16 08:59 11/29/16 08:32 Cefepime HCl/ Dextrose (Maxipime/D5W) 55 ml @ 110 mls/hr Q24H IVPB 11/30/16 01:00 12/04/16 00:59 Chlorhexidine Gluconate (Ebony-Hex 2%) 1 applic QHS TOPIC 11/17/16 21:00 12/17/16 20:59 11/28/16 21:34 Cinacalcet (Sensipar) 30 mg DAILY ORAL 11/18/16 09:00 12/18/16 08:59 11/29/16 08:32 Clopidogrel Bisulfate (Plavix) 75 mg DAILY ORAL 11/18/16 09:00 12/18/16 08:59 11/29/16 08:29 Emtricitabine (Emtriva) 200 mg WeSa@1800 ORAL 11/17/16 18:00 12/17/16 17:59 11/24/16 18:13 Fluconazole (Diflucan) 200 mg DAILY ORAL 11/30/16 09:00 12/04/16 08:59 Hydromorphone HCl (Dilaudid) 0.5 mg Q4H PRN IVP For Pain 7-11/24/16 16:15 12/01/16 16:14 11/29/16 14:34 Metronidazole (Flagyl) 500 mg Q8HR ORAL 11/29/16 14:00 12/06/16 13:59 11/29/16 14:21 Nateglinide (Starlix) 120 mg TIAC ORAL 11/17/16 16:30 12/17/16 16:29 11/29/16 17:36 Oxycodone HCl 5 mg 5 mg Q4H PRN ORAL PAIN 4-6 11/24/16 16:15 12/01/16 16:14 11/29/16 06:27 Patient Own Medication (Patient's Own Med) 2 ea BID ORAL 11/17/16 18:00 12/17/16 17:59 11/29/16 08:28 Sevelamer Carbonate (Renvela) 2,400 mg THREE TIMES A DAY ORAL 11/24/16 08:32 12/17/16 17:59 11/29/16 14:20 Sevelamer Carbonate 1600 mg 1,600 mg TID ORAL 11/18/16 13:00 12/18/16 12:59 11/29/16 09:48 Sodium Chloride (Sodium Chloride 1000ml bag) 1,000 ml @ 500 mls/hr Q2H PRN IVLG sbp<90 during hd 11/24/16 12:44 12/24/16 12:43 Tenofovir Disoproxil Fumarate (Viread) 300 mg Sa@1800 ORAL 11/17/16 21:00 12/17/16 20:59 11/25/16 17:05 Vancomycin HCl (Vanco rx to dose) 1 ea DAILY PRN MISC Per rx protocol 11/29/16 12:45 12/29/16 12:44 Allergies: Coded Allergies: HEPARIN (Verified Allergy, Severe, low platelets, 06/11/14) SULFA (SULFONAMIDE ANTIBIOTICS) (Verified Allergy, Severe, nephro toxic, ) ZOLPIDEM (Verified Allergy, Unknown, 05/03/16) MEROPENEM (Verified Adverse Reaction, Intermediate, 04/01/16) Nausea and vomiting Uncoded Allergies: pork products (Allergy, Severe, rashes, 06/11/14) ROS Limited/Unobtainable: No Constitutional: Reports: no symptoms HEENT: Reports: no symptoms Cardiovascular: Reports: no symptoms Respiratory: Reports: no symptoms Gastrointestinal/Abdominal: Reports: no symptoms Genitourinary: Reports: no symptoms Neurologic/Psychiatric: Reports: no symptoms Subjective 61 YO M admitted with shortness of breath, hypoglycemia and right diabetic foot ulcer. Now gangrene right foot with osteomyelitis. Await transfer to [facility] for vascular procedure. Objective Last Vital Signs Date Time Temp Pulse Resp B/P Pulse Ox O2 Delivery O2 Flow Rate FiO2 11/29/16 16:00 98.3 79 18 142/45 96 Room Air 11/28/16 23:59 28 11/28/16 15:49 2.0 Laboratory Tests Test 11/29/16 06:20 White Blood Count 6.1 K/UL (4.8-10.8) Red Blood Count 4.31 M/UL (4.70-6.10) L Hemoglobin 11.1 G/DL (14.2-18.0) L Hematocrit 37.1 % (42.0-52.0) L Mean Corpuscular Volume 86 FL (80-99) Mean Corpuscular Hemoglobin 25.7 PG (27.0-31.0) L Mean Corpuscular Hemoglobin Concent 29.8 G/DL (32.0-36.0) L Red Cell Distribution Width 20.2 % (11.6-14.8) H Platelet Count 284 K/UL (150-450) Mean Platelet Volume 6.8 FL (6.5-10.1) Neutrophils (%) (Auto) 48.7 % (45.0-75.0) Lymphocytes (%) (Auto) 29.2 % (20.0-45.0) Monocytes (%) (Auto) 15.2 % (1.0-10.0) H Eosinophils (%) (Auto) 5.3 % (0.0-3.0) H Basophils (%) (Auto) 1.6 % (0.0-2.0) Sodium Level 132 mEQ/L (135-145) L Potassium Level 4.3 mEQ/L (3.4-4.9) Chloride Level 94 mEQ/L (98-107) L Carbon Dioxide Level 23 mEQ/L (20-30) Anion Gap 15 (5-15) Blood Urea Nitrogen 51 mg/dL (7-23) H Creatinine 5.9 mg/dL (0.7-1.2) H Estimat Glomerular Filtration Rate 11.9 mL/min (>60) Glucose Level 138 mg/dL (74-106) H Calcium Level 8.8 mg/dL (8.6-10.2) Random Vancomycin Level 18.2 ug/mL Intake and Output 11/28/16 11/29/16 19:00 07:00 Intake Total 400 ml 240 ml Output Total 0 ml Balance 400 ml 240 ml Intake Oral 400 ml 240 ml Output Urine Total 0 ml # Bowel Movements 1 Objective General Appearance: WD/WN, no apparent distress, alert EENT: PERRL/EOMI, normal ENT inspection, TMs normal Neck: non-tender, normal alignment, supple Cardiovascular: normal peripheral pulses, sinus bradycardia, regular rhythm, no gallop/murmur, no JVD Respiratory/Chest: chest wall non-tender, lungs clear, normal breath sounds, no respiratory distress, no accessory muscle use Abdomen: normal bowel sounds, non tender, soft, no organomegaly, no mass Extremities: right foot dressing clean and dry; normal range of motion 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 See podiatry consult note. cont vanco, cefepime and flagyl per ID (6) HIV disease Assessment & Plan: Continue HAART per ID (7) HTN (hypertension) Assessment & Plan: Continue metoprolol (8) Diabetes Assessment & Plan: Hypoglycemic on arrival. (9) ESRD (end stage renal disease) Assessment & Plan: Last Hemodialysis 11/28/16. See nephrology note-Dr Medina (10) Bradycardia Assessment & Plan: See cardiology consult. D/C metoprolol and clonidine. (11) Osteomyelitis of ankle or foot, right, acute Assessment & Plan: See podiatry note. (12) Gangrene of right foot Assessment & Plan: Needs revascularization prior to surgery. See vasc surg note. (13) Right atrial mass Assessment & Plan: See cardiology note. 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 (16) Hyperkalemia Assessment & Plan: Last Hemodialysis 11/24/16 -see nephrology note. Assessment/Plan D/W social work transfer to [facility] for vascular procedure. Discussed with podiatry and ID DIDIER THORNTON Nov 29, 2016 17:46
--- NOTE | 2016-11-29 19:17 | Nephrology Progress Note ---
Assessment/Plan Problem List: (1) Osteomyelitis (2) ESRD (end stage renal disease) (3) HTN (hypertension) (4) Hepatitis C (5) Hypoglycemia (6) Vascular disease (7) Valvular cardiomyopathy (8) Vheyh-Lfnzm-Xxeez syndrome (9) Bradycardia (10) Hyperkalemia Plan Dialysis 11/28 via cath, and K bun creatinine reduced appropriately. , He -may have recirculation from catheter. Patient and refuse to use av fistula yet. . No fluid overload. His pain and infection could be monitored with amputations and earlier rehab--defer to pmd s/p bradycardia episode, bp nl, cardiology eval reviewed, MIAN reviewed. With OWR high risk of hemorrhage if anticoagulated--d/w Dr. Tate Subjective Constitutional: Reports: weakness HEENT: Reports: no symptoms Genitourinary: Reports: no symptoms Neurologic/Psychiatric: Reports: no symptoms Subjective foot pain Objective Objective Last 24 Hour Vital Signs Date Time Temp Pulse Resp B/P Pulse Ox O2 Delivery O2 Flow Rate FiO2 11/29/16 16:00 98.3 79 18 142/45 96 Room Air 11/29/16 12:00 97.7 84 18 114/48 97 Room Air 11/29/16 09:02 Room Air 11/29/16 09:02 Room Air 11/29/16 08:32 92 141/45 11/29/16 08:00 98.4 92 18 141/45 97 Room Air 11/29/16 04:00 102 11/29/16 04:00 98.1 98 18 137/41 99 Room Air 11/29/16 00:00 98.4 89 18 125/32 99 Room Air 11/29/16 00:00 88 11/28/16 23:59 87 18 98 Full Face 28 11/28/16 20:31 Room Air 11/28/16 20:31 99 Room Air 11/28/16 20:00 98.2 89 20 134/34 99 Room Air 11/28/16 20:00 87 Intake and Output 11/28/16 11/29/16 19:00 07:00 Intake Total 400 ml 240 ml Output Total 0 ml Balance 400 ml 240 ml Intake Oral 400 ml 240 ml Output Urine Total 0 ml # Bowel Movements 1 Laboratory Tests 11/29/16 06:20: White Blood Count 6.1, Red Blood Count 4.31L, Hemoglobin 11.1L, Hematocrit 37.1L , Mean Corpuscular Volume 86, Mean Corpuscular Hemoglobin 25.7L, Mean Corpuscular Hemoglobin Concent 29.8L, Red Cell Distribution Width 20.2H, Platelet Count 284, Mean Platelet Volume 6.8, Neutrophils (%) (Auto) 48.7, Lymphocytes (%) (Auto) 29.2, Monocytes (%) (Auto) 15.2H, Eosinophils (%) (Auto) 5.3H, Basophils (%) (Auto) 1.6, Sodium Level 132L, Potassium Level 4.3, Chloride Level 94L, Carbon Dioxide Level 23, Anion Gap 15, Blood Urea Nitrogen 51H, Creatinine 5.9H, Estimat Glomerular Filtration Rate 11.9, Glucose Level 138H, Calcium Level 8.8, Random Vancomycin Level 18.2 Height (Feet): 6 Height (Inches): 6.00 Weight (Pounds): 177 General Appearance: no apparent distress, alert EENT: normal ENT inspection Neck: normal alignment Cardiovascular: normal rate, regular rhythm Respiratory/Chest: lungs clear Abdomen: non tender Extremities: other - no edeema 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
[2016-11-29] MEDS: Dyna-Hex 2% Top Sol 8oz TOPIC SCH (21:05)
[2016-11-30] MEDS ORDERED: Cefepime HCl 0.5 GM in D5W 55 ML IVPB SCH (01:00)
[2016-11-30] MEDS: Hydromorphone 0.5mg/0.5ml inj IVP PRN ×4 (01:12→20:37)
[2016-11-30 03:50] VITALS: BP 135/36
[2016-11-30] MEDS: metroNIDAZOLE 500mg tab ORAL SCH ×2 (05:20→15:03)
[2016-11-30] MEDS: oxyCODONE 5mg IR tab ORAL PRN ×2 (05:21→23:06)
[2016-11-30 06:33] LABS: BASOPHILS % (AUTO) 1.8 % (0.0-2.0); EOSINOPHILS % (AUTO) 5.9 % (0.0-3.0); LYMPHOCYTES % (AUTO) 30.9 % (20.0-45.0); MEAN CORPUSCULAR HGB CONC 30.5 G/DL (32.0-36.0); MEAN CORPUSCULAR VOLUME 85 FL (80-99); MEAN PLATELET VOLUME 6.7 FL (6.5-10.1); MONOCYTES % (AUTO) 15.9 % (1.0-10.0); NEUTROPHILS % (AUTO) 45.6 % (45.0-75.0); PLATELET COUNT 311 K/UL (150-450); RED BLOOD COUNT 4.14 M/UL (4.70-6.10); RED CELL DISTRIBUTION WIDTH 19.8 % (11.6-14.8); WHITE BLOOD COUNT 6.3 K/UL (4.8-10.8)
[2016-11-30 07:22] LABS: CALCIUM 8.3 mg/dL (8.6-10.2); CREATININE 8.1 mg/dL (0.7-1.2); GLOMERULAR FILTRATION RATE 8.2 mL/min (>60); POTASSIUM 4.8 mEQ/L (3.4-4.9)
[2016-11-30 08:00] VITALS: BP 136/46
[2016-11-30] MEDS: Renvela 2400 mg pkt ORAL SCH ×3 (08:22→18:00)
[2016-11-30] MEDS: Sensipar 30mg Tab ORAL SCH (08:22)
[2016-11-30] MEDS: Renvela 800mg Pkt ORAL SCH ×3 (08:23→18:00)
[2016-11-30] MEDS: VIRACEPT ORAL SCH ×2 (08:28→18:00)
[2016-11-30] MEDS ORDERED: Fluconazole 100mg tab ORAL SCH (09:00)
[2016-11-30] MEDS ORDERED: VANCOMYCIN1 GM/2502 IVPB (10:26)
[2016-11-30] MEDS ORDERED: CEFEPIME-D1 GM/50 ML IVPB (10:28)
[2016-11-30 12:00] VITALS: BP 132/41
--- NOTE | 2016-11-30 13:30 | Nephrology Progress Note ---
Assessment/Plan Problem List: (1) Osteomyelitis (2) ESRD (end stage renal disease) (3) HTN (hypertension) (4) Hepatitis C (5) Hypoglycemia (6) Vascular disease (7) Valvular cardiomyopathy (8) Teadh-Fzddg-Kmjte syndrome (9) Bradycardia (10) Hyperkalemia Plan Dialysis 11/28 via cath, and K bun creatinine reduced appropriately. , He -may have recirculation from catheter. Patient and refuse to use av fistula yet. HD 11/30 . No fluid overload. His pain and infection could be monitored with amputations and earlier rehab--defer to pmd s/p bradycardia episode, bp nl, cardiology eval reviewed, MIAN reviewed. With OWR high risk of hemorrhage if anticoagulated--d/w Dr. Tate Subjective Constitutional: Reports: weakness HEENT: Reports: no symptoms Genitourinary: Reports: no symptoms Neurologic/Psychiatric: Reports: no symptoms Subjective foot pain Objective Objective Last 24 Hour Vital Signs Date Time Temp Pulse Resp B/P Pulse Ox O2 Delivery O2 Flow Rate FiO2 11/30/16 12:00 97.9 86 21 132/41 100 Room Air 11/30/16 08:22 91 136/46 11/30/16 08:00 97.7 91 20 136/46 99 Room Air 11/30/16 07:29 Room Air 11/30/16 07:29 99 Room Air 11/30/16 04:00 87 11/30/16 03:50 98.1 82 20 135/36 99 Room Air 11/30/16 01:42 96.5 11/30/16 00:00 79 11/29/16 23:23 96.5 82 20 138/30 99 Room Air 11/29/16 22:00 28 11/29/16 20:09 97.7 83 20 121/39 98 Room Air 11/29/16 20:00 84 11/29/16 19:00 96 Room Air 11/29/16 19:00 Room Air 11/29/16 16:00 98.3 79 18 142/45 96 Room Air Intake and Output 11/29/16 11/30/16 19:00 07:00 Intake Total 1517.416 ml Balance 1517.416 ml Intake Oral 1150 ml IV Total 367.416 ml # Bowel Movements 2 Laboratory Tests 11/30/16 06:10: White Blood Count 6.3, Red Blood Count 4.14L, Hemoglobin 10.8L, Hematocrit 35.3L , Mean Corpuscular Volume 85, Mean Corpuscular Hemoglobin 26.0L, Mean Corpuscular Hemoglobin Concent 30.5L, Red Cell Distribution Width 19.8H, Platelet Count 311, Mean Platelet Volume 6.7, Neutrophils (%) (Auto) 45.6, Lymphocytes (%) (Auto) 30.9, Monocytes (%) (Auto) 15.9H, Eosinophils (%) (Auto) 5.9H, Basophils (%) (Auto) 1.8, Sodium Level 132L, Potassium Level 4.8, Chloride Level 93L, Carbon Dioxide Level 20, Anion Gap 19H, Blood Urea Nitrogen 77#H, Creatinine 8.1H, Estimat Glomerular Filtration Rate 8.2, Glucose Level 97 , Calcium Level 8.3L Height (Feet): 6 Height (Inches): 6.00 Weight (Pounds): 180 General Appearance: no apparent distress, alert EENT: normal ENT inspection Neck: normal alignment Cardiovascular: normal rate Respiratory/Chest: lungs clear Abdomen: non tender, soft Extremities: other - no edema, blackened toes 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
[2016-11-30 16:00] VITALS: BP 128/40
--- NOTE | 2016-11-30 16:53 | Cardiac Electrophysiology PN ---
Assessment/Plan Status Narrative MIAN: Side lobe artifact refuting right atrial mass, the mass seen in the right atrial cavity with MIAN is image artifact of amplatzer device implanted for PFO closure. Eccentric regurgitant of mitral valve through prolapsed posterior leaflet consistent with severe MR Perforated vs cleft non-coronary cusp of the aortic valve leading to eccentric aortic regurgitation consistent with severe AR. Negative bubble study. Assessment/Plan 1. Bradycardia with sinus arrest and junctional rhythm. Ruled out myocardial infarction. Resolved. 2. Hypertension, on Norvasc 5 mg daily. 3. PAF in [place] S/P ablation at [facility] in 2011. Had short run of atrial fib 2 days ago.Keep off AAs in view of tom episodes.No recurrence 4. Larger right atrial echogenic material/mass. MIAN 11/24/16 showed no intracardiac thrombus. 5. Severe AI and MR. ? Double valve surgery as out patient. 6. Peripheral vascular disease, status post metatarsal amputation, on antibiotic with right foot ulcer. 7. HIV 8. Hepatitis C. 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 10. Viability study 10/31/16 showed 10% nonviable myocardium. 11. End-stage renal disease, on hemodialysis. NOE RN Subjective Subjective Comfortable on tele in SR .Had dialysis today. No recurrence of atrial fib. Objective Last 24 Hour Vital Signs Date Time Temp Pulse Resp B/P Pulse Ox O2 Delivery O2 Flow Rate FiO2 11/30/16 16:11 Nasal Cannula 2.0 11/30/16 12:00 97.9 86 21 132/41 100 Room Air 11/30/16 08:22 91 136/46 11/30/16 08:00 97.7 91 20 136/46 99 Room Air 11/30/16 07:29 Room Air 11/30/16 07:29 99 Room Air 11/30/16 04:00 87 11/30/16 03:50 98.1 82 20 135/36 99 Room Air 11/30/16 01:42 96.5 11/30/16 00:00 79 11/29/16 23:23 96.5 82 20 138/30 99 Room Air 11/29/16 22:00 28 11/29/16 20:09 97.7 83 20 121/39 98 Room Air 11/29/16 20:00 84 11/29/16 19:00 96 Room Air 11/29/16 19:00 Room Air Intake and Output 11/29/16 11/30/16 19:00 07:00 Intake Total 1517.416 ml Balance 1517.416 ml Intake Oral 1150 ml IV Total 367.416 ml # Bowel Movements 2 Laboratory Tests Test 11/30/16 06:10 White Blood Count 6.3 K/UL (4.8-10.8) Red Blood Count 4.14 M/UL (4.70-6.10) L Hemoglobin 10.8 G/DL (14.2-18.0) L Hematocrit 35.3 % (42.0-52.0) L Mean Corpuscular Volume 85 FL (80-99) Mean Corpuscular Hemoglobin 26.0 PG (27.0-31.0) L Mean Corpuscular Hemoglobin Concent 30.5 G/DL (32.0-36.0) L Red Cell Distribution Width 19.8 % (11.6-14.8) H Platelet Count 311 K/UL (150-450) Mean Platelet Volume 6.7 FL (6.5-10.1) Neutrophils (%) (Auto) 45.6 % (45.0-75.0) Lymphocytes (%) (Auto) 30.9 % (20.0-45.0) Monocytes (%) (Auto) 15.9 % (1.0-10.0) H Eosinophils (%) (Auto) 5.9 % (0.0-3.0) H Basophils (%) (Auto) 1.8 % (0.0-2.0) Sodium Level 132 mEQ/L (135-145) L Potassium Level 4.8 mEQ/L (3.4-4.9) Chloride Level 93 mEQ/L (98-107) L Carbon Dioxide Level 20 mEQ/L (20-30) Anion Gap 19 (5-15) H Blood Urea Nitrogen 77 mg/dL (7-23) #H Creatinine 8.1 mg/dL (0.7-1.2) H Estimat Glomerular Filtration Rate 8.2 mL/min (>60) Glucose Level 97 mg/dL (74-106) Calcium Level 8.3 mg/dL (8.6-10.2) L Objective HEAD AND NECK: No JVD. LUNGS: Decreased breath sounds.Dialysis Via left subclavian PermCath. CARDIOVASCULAR: Shows regular S1 and S2. ABDOMEN: Soft. EXTREMITIES: No pitting edema. S/P right foot ulcer and left metatarsal amputation. CLIFTON KEARNEY Nov 30, 2016 16:53
--- NOTE | 2016-11-30 17:12 | Internal Med Progress Note ---
Subjective Date of Service: Nov 30, 2016 Physician Name Didier Thornton Attending Physician Didier Thornton Current Medications Medications (Trade) Dose Ordered Sig/Zohaib Route PRN Reason Start Time Stop Time Status Last Admin Dose Admin Amlodipine Besylate (Norvasc) 5 mg DAILY ORAL 11/18/16 09:00 12/18/16 08:59 11/30/16 08:22 Cefepime HCl/ Dextrose (Maxipime/D5W) 55 ml @ 110 mls/hr Q24H IVPB 11/30/16 01:00 12/04/16 00:59 11/30/16 01:11 Chlorhexidine Gluconate (Ebony-Hex 2%) 1 applic QHS TOPIC 11/17/16 21:00 12/17/16 20:59 11/29/16 21:05 Cinacalcet (Sensipar) 30 mg DAILY ORAL 11/18/16 09:00 12/18/16 08:59 11/30/16 08:22 Clopidogrel Bisulfate (Plavix) 75 mg DAILY ORAL 11/18/16 09:00 12/18/16 08:59 11/30/16 08:21 Emtricitabine (Emtriva) 200 mg WeSa@1800 ORAL 11/17/16 18:00 12/17/16 17:59 11/24/16 18:13 Fluconazole (Diflucan) 200 mg DAILY ORAL 11/30/16 09:00 12/04/16 08:59 11/30/16 08:21 Hydromorphone HCl (Dilaudid) 0.5 mg Q4H PRN IVP For Pain 7-11/24/16 16:15 12/01/16 16:14 11/30/16 15:04 Metronidazole (Flagyl) 500 mg Q8HR ORAL 11/29/16 14:00 12/06/16 13:59 11/30/16 15:03 Nateglinide (Starlix) 120 mg TIAC ORAL 11/17/16 16:30 12/17/16 16:29 11/30/16 12:42 Oxycodone HCl 5 mg 5 mg Q4H PRN ORAL PAIN 4-6 11/24/16 16:15 12/01/16 16:14 11/30/16 05:21 Patient Own Medication (Patient's Own Med) 2 ea BID ORAL 11/17/16 18:00 12/17/16 17:59 11/30/16 08:28 Sevelamer Carbonate (Renvela) 2,400 mg THREE TIMES A DAY ORAL 11/24/16 08:32 12/17/16 17:59 11/30/16 12:42 Sevelamer Carbonate 1600 mg 1,600 mg TID ORAL 11/18/16 13:00 12/18/16 12:59 11/30/16 12:42 Sodium Chloride 1,000 ml @ 500 mls/hr Q2H PRN IVLG sbp<90 during hd 11/30/16 20:00 12/30/16 19:59 Sodium Chloride (Sodium Chloride 1000ml bag) 1,000 ml @ 500 mls/hr Q2H PRN IVLG sbp<90 during hd 11/24/16 12:44 12/24/16 12:43 Sodium Chloride (Sodium Chloride 1000ml bag) 1,000 ml @ 500 mls/hr Q2H PRN IVLG sbp<90 during hd 12/01/16 06:00 12/01/16 18:00 Tenofovir Disoproxil Fumarate (Viread) 300 mg Sa@1800 ORAL 11/17/16 21:00 12/17/16 20:59 11/25/16 17:05 Vancomycin HCl 1 ea 1 ea DAILY PRN MISC Per rx protocol 11/29/16 12:45 12/29/16 12:44 Allergies: Coded Allergies: HEPARIN (Verified Allergy, Severe, low platelets, 06/11/14) SULFA (SULFONAMIDE ANTIBIOTICS) (Verified Allergy, Severe, nephro toxic, ) ZOLPIDEM (Verified Allergy, Unknown, 05/03/16) MEROPENEM (Verified Adverse Reaction, Intermediate, 04/01/16) Nausea and vomiting Uncoded Allergies: pork products (Allergy, Severe, rashes, 06/11/14) ROS Limited/Unobtainable: No Constitutional: Reports: no symptoms HEENT: Reports: no symptoms Cardiovascular: Reports: no symptoms Respiratory: Reports: no symptoms Gastrointestinal/Abdominal: Reports: no symptoms Genitourinary: Reports: no symptoms Neurologic/Psychiatric: Reports: no symptoms Subjective 61 YO M admitted with shortness of breath, hypoglycemia and right diabetic foot ulcer. Now gangrene right foot with osteomyelitis. Await transfer to [facility] for vascular procedure. Objective Last Vital Signs Date Time Temp Pulse Resp B/P Pulse Ox O2 Delivery O2 Flow Rate FiO2 11/30/16 16:11 Nasal Cannula 2.0 11/30/16 16:00 98.1 80 20 128/40 96 11/29/16 22:00 28 Laboratory Tests Test 11/30/16 06:10 White Blood Count 6.3 K/UL (4.8-10.8) Red Blood Count 4.14 M/UL (4.70-6.10) L Hemoglobin 10.8 G/DL (14.2-18.0) L Hematocrit 35.3 % (42.0-52.0) L Mean Corpuscular Volume 85 FL (80-99) Mean Corpuscular Hemoglobin 26.0 PG (27.0-31.0) L Mean Corpuscular Hemoglobin Concent 30.5 G/DL (32.0-36.0) L Red Cell Distribution Width 19.8 % (11.6-14.8) H Platelet Count 311 K/UL (150-450) Mean Platelet Volume 6.7 FL (6.5-10.1) Neutrophils (%) (Auto) 45.6 % (45.0-75.0) Lymphocytes (%) (Auto) 30.9 % (20.0-45.0) Monocytes (%) (Auto) 15.9 % (1.0-10.0) H Eosinophils (%) (Auto) 5.9 % (0.0-3.0) H Basophils (%) (Auto) 1.8 % (0.0-2.0) Sodium Level 132 mEQ/L (135-145) L Potassium Level 4.8 mEQ/L (3.4-4.9) Chloride Level 93 mEQ/L (98-107) L Carbon Dioxide Level 20 mEQ/L (20-30) Anion Gap 19 (5-15) H Blood Urea Nitrogen 77 mg/dL (7-23) #H Creatinine 8.1 mg/dL (0.7-1.2) H Estimat Glomerular Filtration Rate 8.2 mL/min (>60) Glucose Level 97 mg/dL (74-106) Calcium Level 8.3 mg/dL (8.6-10.2) L Intake and Output 11/29/16 11/30/16 19:00 07:00 Intake Total 1517.416 ml Balance 1517.416 ml Intake Oral 1150 ml IV Total 367.416 ml # Bowel Movements 2 Objective General Appearance: WD/WN, no apparent distress, alert EENT: PERRL/EOMI, normal ENT inspection, TMs normal Neck: non-tender, normal alignment, supple Cardiovascular: normal peripheral pulses, sinus bradycardia, regular rhythm, no gallop/murmur, no JVD Respiratory/Chest: chest wall non-tender, lungs clear, normal breath sounds, no respiratory distress, no accessory muscle use Abdomen: normal bowel sounds, non tender, soft, no organomegaly, no mass Extremities: right foot dressing clean and dry; normal range of motion 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 See podiatry consult note. cont vanco, cefepime and flagyl per ID (6) HIV disease Assessment & Plan: Continue HAART per ID (7) HTN (hypertension) Assessment & Plan: Continue metoprolol (8) Diabetes Assessment & Plan: Hypoglycemic on arrival. (9) ESRD (end stage renal disease) Assessment & Plan: Last Hemodialysis 11/28/16. See nephrology note-Dr Medina (10) Bradycardia Assessment & Plan: See cardiology consult. D/C metoprolol and clonidine. (11) Osteomyelitis of ankle or foot, right, acute Assessment & Plan: See podiatry note. (12) Gangrene of right foot Assessment & Plan: Needs revascularization prior to surgery. See vasc surg note. (13) Right atrial mass Assessment & Plan: See cardiology note. 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 (16) Hyperkalemia Assessment & Plan: Last Hemodialysis 11/24/16 -see nephrology note. Status: unchanged Assessment/Plan D/W social work transfer to [facility] for vascular procedure. Discussed with podiatry and ID DIDIER THORNTON Nov 30, 2016 17:12
--- NOTE | 2016-11-30 17:25 | Infectious Diseases Prog Note ---
Assessment/Plan Assessment/Plan ASSESSMENT AND PLAN: 1. right foot and heel infected wounds and necrosis/ischemia/gangrene - wound culture with yeast, likely polymicrobial - MRI c/o osteo right ankle and possible right foot - wound culture with nicole, likely polymicrobial infection - podiatry and vascular surgery f/u noted - significant problem with foot is ischemic - continue vancomycin, cefepime, flagy and diflucan - patient will need continued abx for osteo and until surgical intervention - patient may be transferred for surgical intervention regarding right foot ischemia - iv abx have been ordered/arranged and oral scripts written for the next two weeks until further w/u, surgery etc, d/w RN about antibiotics - weekly labs have been ordered also, d/w RN. Patient to f/u with me in two weeks, d/w RN. - wound care per protocol - MIAN without vegetation or thrombus 2. patient getting treated for right heel/foot osteo as outpatient with vancomycin and zosyn based on most recent wound culture in my office 3. End-stage renal disease, on hemodialysis. 4. Hypertension and diabetes, hep c + 5. Human immunodeficiency virus. Continue antiretroviral treatment at this time from home, cd4 ordered. Pt f/u with Dr. Chinchilla for HIV care. 6. Blood sugar and blood pressure control for diabetes and hypertension, per primary. 7. Anemia. 8. Hemodialysis per Renal. 9. Transient ischemic attack. 10. Congestive heart failure. 11. History of osteomyelitis of left foot. 12. Hepatis C. 13. History of seizure. 14. Weakness. 15. Past medical history noted. 16. Allergies to Heparin, meropenem, sulfa, and Zolpidem. 17. MAR was noted. 18. Case was discussed with RN. 19. Social history is negative. 20. Family history is noncontributory. 21. Case discussed with Dr. Thornton. 22. Continue treatment per primary consultants. 23. Wound care protocol. 24. Podiatry followup. 25. Continue Vascular Surgery evaluation. 26. Hypoglycemia treatment per primary. Subjective Constitutional: Denies: fever HEENT: Denies: congestion Respiratory: Denies: shortness of breath Cardiovascular: Denies: chest pain Gastrointestinal/Abdominal: Denies: nausea Neurologic: Denies: headache Psychiatric: Denies: depression Skin: Denies: rash Hematologic: Denies: bleeding Allergies: Coded Allergies: HEPARIN (Verified Allergy, Severe, low platelets, 06/11/14) SULFA (SULFONAMIDE ANTIBIOTICS) (Verified Allergy, Severe, nephro toxic, ) ZOLPIDEM (Verified Allergy, Unknown, 05/03/16) MEROPENEM (Verified Adverse Reaction, Intermediate, 04/01/16) Nausea and vomiting Uncoded Allergies: pork products (Allergy, Severe, rashes, 06/11/14) Objective Vital Signs Last 24 Hour Vital Signs Date Time Temp Pulse Resp B/P Pulse Ox O2 Delivery O2 Flow Rate FiO2 11/30/16 16:11 Nasal Cannula 2.0 11/30/16 16:00 98.1 80 20 128/40 96 Room Air 11/30/16 12:00 97.9 86 21 132/41 100 Room Air 11/30/16 08:22 91 136/46 11/30/16 08:00 97.7 91 20 136/46 99 Room Air 11/30/16 07:29 Room Air 11/30/16 07:29 99 Room Air 11/30/16 04:00 87 11/30/16 03:50 98.1 82 20 135/36 99 Room Air 11/30/16 01:42 96.5 11/30/16 00:00 79 11/29/16 23:23 96.5 82 20 138/30 99 Room Air 11/29/16 22:00 28 11/29/16 20:09 97.7 83 20 121/39 98 Room Air 11/29/16 20:00 84 11/29/16 19:00 96 Room Air 11/29/16 19:00 Room Air Height (Feet): 6 Height (Inches): 6.00 Weight (Pounds): 180 General Appearance: no acute distress HEENT: normocephalic, atraumatic, anicteric, mucous membranes moist, PERRL, EOMI, pharynx normal, supple, no JVD Respiratory/Chest: lungs clear, normal breath sounds, no respiratory distress, no accessory muscle use Cardiovascular: normal rate, regular rhythm, no gallop/murmur, no JVD Abdomen: normal bowel sounds, soft, non tender, no organomegaly, non distended Genitourinary: other - no agarwal, + hd Extremities: other - no change in right foot ischemic changes/gangrene Skin: no rash 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 Impression: Nonspecific, very small foci of abnormal signal at the dorsal heads of the first and fourth proximal phalanges. If there is evidence of active infection with ulcers in these 2 locations, osteomyelitis should be considered. Please correlate clinically. MIAN - no thrombus or vegetation per cardiology notes Microbiology Date/Time Source Procedure Growth Status 11/11/16 16:05 Blood Blood Culture - Final NO GROWTH AFTER 5 DAYS Complete 11/10/16 19:50 Nasal Nares MRSA Culture - Final NO METHICILLIN RESISTANT STAPH AUREUS... Complete 11/13/16 02:00 Foot Right Gram Stain - Final Complete 11/13/16 02:00 Aerobic Culture - Final Nicole Parapsilosis Complete 11/13/16 02:00 Foot Right Anaerobic Culture - Final NO ANAEROBES ISOLATED Complete Laboratory Tests Test 11/30/16 06:10 White Blood Count 6.3 K/UL (4.8-10.8) Red Blood Count 4.14 M/UL (4.70-6.10) L Hemoglobin 10.8 G/DL (14.2-18.0) L Hematocrit 35.3 % (42.0-52.0) L Mean Corpuscular Volume 85 FL (80-99) Mean Corpuscular Hemoglobin 26.0 PG (27.0-31.0) L Mean Corpuscular Hemoglobin Concent 30.5 G/DL (32.0-36.0) L Red Cell Distribution Width 19.8 % (11.6-14.8) H Platelet Count 311 K/UL (150-450) Mean Platelet Volume 6.7 FL (6.5-10.1) Neutrophils (%) (Auto) 45.6 % (45.0-75.0) Lymphocytes (%) (Auto) 30.9 % (20.0-45.0) Monocytes (%) (Auto) 15.9 % (1.0-10.0) H Eosinophils (%) (Auto) 5.9 % (0.0-3.0) H Basophils (%) (Auto) 1.8 % (0.0-2.0) Sodium Level 132 mEQ/L (135-145) L Potassium Level 4.8 mEQ/L (3.4-4.9) Chloride Level 93 mEQ/L (98-107) L Carbon Dioxide Level 20 mEQ/L (20-30) Anion Gap 19 (5-15) H Blood Urea Nitrogen 77 mg/dL (7-23) #H Creatinine 8.1 mg/dL (0.7-1.2) H Estimat Glomerular Filtration Rate 8.2 mL/min (>60) Glucose Level 97 mg/dL (74-106) Calcium Level 8.3 mg/dL (8.6-10.2) L Current Medications Medications (Trade) Dose Ordered Sig/Zohaib Route PRN Reason Start Time Stop Time Status Last Admin Dose Admin Amlodipine Besylate (Norvasc) 5 mg DAILY ORAL 11/18/16 09:00 12/18/16 08:59 11/30/16 08:22 Cefepime HCl/ Dextrose (Maxipime/D5W) 55 ml @ 110 mls/hr Q24H IVPB 11/30/16 01:00 12/04/16 00:59 11/30/16 01:11 Chlorhexidine Gluconate (Ebony-Hex 2%) 1 applic QHS TOPIC 11/17/16 21:00 12/17/16 20:59 11/29/16 21:05 Cinacalcet (Sensipar) 30 mg DAILY ORAL 11/18/16 09:00 12/18/16 08:59 11/30/16 08:22 Clopidogrel Bisulfate (Plavix) 75 mg DAILY ORAL 11/18/16 09:00 12/18/16 08:59 11/30/16 08:21 Emtricitabine (Emtriva) 200 mg WeSa@1800 ORAL 11/17/16 18:00 12/17/16 17:59 11/24/16 18:13 Fluconazole (Diflucan) 200 mg DAILY ORAL 11/30/16 09:00 12/04/16 08:59 11/30/16 08:21 Hydromorphone HCl (Dilaudid) 0.5 mg Q4H PRN IVP For Pain 7-11/24/16 16:15 12/01/16 16:14 11/30/16 15:04 Metronidazole (Flagyl) 500 mg Q8HR ORAL 11/29/16 14:00 12/06/16 13:59 11/30/16 15:03 Nateglinide (Starlix) 120 mg TIAC ORAL 11/17/16 16:30 12/17/16 16:29 11/30/16 12:42 Oxycodone HCl 5 mg 5 mg Q4H PRN ORAL PAIN 4-6 11/24/16 16:15 12/01/16 16:14 11/30/16 05:21 Patient Own Medication (Patient's Own Med) 2 ea BID ORAL 11/17/16 18:00 12/17/16 17:59 11/30/16 08:28 Sevelamer Carbonate (Renvela) 2,400 mg THREE TIMES A DAY ORAL 11/24/16 08:32 12/17/16 17:59 11/30/16 12:42 Sevelamer Carbonate 1600 mg 1,600 mg TID ORAL 11/18/16 13:00 12/18/16 12:59 11/30/16 12:42 Sodium Chloride 1,000 ml @ 500 mls/hr Q2H PRN IVLG sbp<90 during hd 11/30/16 20:00 12/30/16 19:59 Sodium Chloride (Sodium Chloride 1000ml bag) 1,000 ml @ 500 mls/hr Q2H PRN IVLG sbp<90 during hd 11/24/16 12:44 12/24/16 12:43 Sodium Chloride (Sodium Chloride 1000ml bag) 1,000 ml @ 500 mls/hr Q2H PRN IVLG sbp<90 during hd 12/01/16 06:00 12/01/16 18:00 Tenofovir Disoproxil Fumarate (Viread) 300 mg Sa@1800 ORAL 11/17/16 21:00 12/17/16 20:59 11/25/16 17:05 Vancomycin HCl 1 ea 1 ea DAILY PRN MISC Per rx protocol 11/29/16 12:45 12/29/16 12:44 INOCENCIA DOS SANTOS Nov 30, 2016 17:25
[2016-11-30 20:03] VITALS: BP 115/29
[2016-11-30] MEDS: Dyna-Hex 2% Top Sol 8oz TOPIC SCH (20:36)
[2016-11-30] MEDS ORDERED: Tubing IV Secondary IV ONE (22:51)
[2016-12-01] VITALS (9 sets, daily range): BP systolic 113–138; BP diastolic 22–45
[2016-12-01] MEDS ORDERED: Cefepime 1gm vial ONE (00:29)
[2016-12-01] MEDS: Cefepime HCl 0.5 GM in D5W 55 ML IVPB SCH (01:01)
[2016-12-01] MEDS: Hydromorphone 0.5mg/0.5ml inj IVP PRN ×4 (04:25→21:28)
[2016-12-01] MEDS: metroNIDAZOLE 500mg tab ORAL SCH ×3 (05:04→21:25)
[2016-12-01] MEDS: Sensipar 30mg Tab ORAL SCH (09:02)
[2016-12-01] MEDS: Renvela 800mg Pkt ORAL SCH ×3 (09:02→17:14)
[2016-12-01] MEDS: Renvela 2400 mg pkt ORAL SCH ×3 (09:02→17:14)
[2016-12-01] MEDS: VIRACEPT ORAL SCH ×2 (09:03→17:14)
[2016-12-01] MEDS: oxyCODONE 5mg IR tab ORAL PRN ×2 (09:03→15:12)
[2016-12-01] MEDS: Fluconazole 100mg tab ORAL SCH (09:03)
--- NOTE | 2016-12-01 12:25 | Internal Med Progress Note ---
Subjective Date of Service: Dec 01, 2016 Physician Name Didier Thornton Attending Physician Didier Thornton Current Medications Medications (Trade) Dose Ordered Sig/Zohaib Route PRN Reason Start Time Stop Time Status Last Admin Dose Admin Amlodipine Besylate (Norvasc) 5 mg DAILY ORAL 12/01/16 09:00 12/31/16 08:59 Cefepime HCl 0.5 gm/Dextrose 55 ml @ 110 mls/hr Q24H IVPB 12/01/16 01:00 12/08/16 00:59 12/01/16 01:01 Chlorhexidine Gluconate (Ebony-Hex 2%) 1 applic QHS TOPIC 12/01/16 21:00 12/31/16 20:59 Cinacalcet (Sensipar) 30 mg DAILY ORAL 12/01/16 09:00 12/31/16 08:59 12/01/16 09:02 Clopidogrel Bisulfate (Plavix) 75 mg DAILY ORAL 12/01/16 09:00 12/31/16 08:59 12/01/16 09:03 Emtricitabine (Emtriva) 200 mg WeSa@1800 ORAL 12/01/16 18:00 12/31/16 17:59 Fluconazole (Diflucan) 200 mg DAILY ORAL 12/01/16 09:00 12/08/16 08:59 12/01/16 09:03 Hydromorphone HCl (Dilaudid) 0.5 mg Q4H PRN IVP For Pain 7-10 12/01/16 00:15 12/08/16 00:14 12/01/16 04:25 Metronidazole (Flagyl) 500 mg Q8HR ORAL 12/01/16 06:00 12/08/16 05:59 12/01/16 05:04 Nateglinide (Starlix) 120 mg TIAC ORAL 12/01/16 06:30 12/31/16 06:29 12/01/16 11:58 Oxycodone HCl (Roxicodone) 5 mg Q4H PRN ORAL PAIN 4-6 12/01/16 00:15 12/08/16 00:14 12/01/16 09:03 Patient Own Medication (Patient's Own Med) 2 ea BID ORAL 12/01/16 09:00 12/31/16 08:59 12/01/16 09:03 Sevelamer Carbonate (Renvela) 1,600 mg TID ORAL 12/01/16 09:00 12/31/16 08:59 12/01/16 11:59 Sevelamer Carbonate (Renvela) 2,400 mg THREE TIMES A DAY ORAL 12/01/16 09:00 12/31/16 08:59 12/01/16 11:58 Sodium Chloride (Sodium Chloride 1000ml bag) 1,000 ml @ 500 mls/hr Q2H PRN IVLG sbp<90 during hd 12/01/16 06:00 12/31/16 05:59 Tenofovir Disoproxil Fumarate (Viread) 300 mg Sa@1800 ORAL 12/01/16 18:00 12/31/16 17:59 Vancomycin HCl (Vanco rx to dose) 1 ea DAILY PRN MISC Per rx protocol 12/01/16 09:00 12/31/16 08:59 Allergies: Coded Allergies: HEPARIN (Verified Allergy, Severe, low platelets, 06/11/14) SULFA (SULFONAMIDE ANTIBIOTICS) (Verified Allergy, Severe, nephro toxic, ) ZOLPIDEM (Verified Allergy, Unknown, 05/03/16) MEROPENEM (Verified Adverse Reaction, Intermediate, 04/01/16) Nausea and vomiting Uncoded Allergies: pork products (Allergy, Severe, rashes, 06/11/14) ROS Limited/Unobtainable: No Constitutional: Reports: no symptoms HEENT: Reports: no symptoms Cardiovascular: Reports: no symptoms Respiratory: Reports: no symptoms Gastrointestinal/Abdominal: Reports: no symptoms Genitourinary: Reports: no symptoms Neurologic/Psychiatric: Reports: no symptoms Subjective 61 YO M admitted with shortness of breath, hypoglycemia and right diabetic foot ulcer. Now gangrene right foot with osteomyelitis. Await transfer to [facility] for vascular procedure. Objective Last Vital Signs Date Time Temp Pulse Resp B/P Pulse Ox O2 Delivery O2 Flow Rate FiO2 12/01/16 12:03 Nasal Cannula 2.0 12/01/16 08:45 98.1 84 19 138/30 99 12/01/16 07:30 21 Microbiology Date/Time Source Procedure Growth Status 11/29/16 14:30 Nasal Nares MRSA Culture - Final NO METHICILLIN RESISTANT STAPH AUREUS... Complete Intake and Output 11/30/16 12/01/16 19:00 07:00 Intake Total 300 ml Balance 300 ml Intake Oral 300 ml # Voids 2 Objective General Appearance: WD/WN, no apparent distress, alert EENT: PERRL/EOMI, normal ENT inspection, TMs normal Neck: non-tender, normal alignment, supple Cardiovascular: normal peripheral pulses, sinus bradycardia, regular rhythm, no gallop/murmur, no JVD Respiratory/Chest: chest wall non-tender, lungs clear, normal breath sounds, no respiratory distress, no accessory muscle use Abdomen: normal bowel sounds, non tender, soft, no organomegaly, no mass Extremities: right foot dressing clean and dry; normal range of motion 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 See podiatry consult note. cont vanco, cefepime and flagyl per ID (6) HIV disease Assessment & Plan: Continue HAART per ID (7) HTN (hypertension) Assessment & Plan: Continue metoprolol (8) Diabetes Assessment & Plan: Hypoglycemic on arrival. (9) ESRD (end stage renal disease) Assessment & Plan: Last Hemodialysis 11/28/16. See nephrology note-Dr Medina (10) Bradycardia Assessment & Plan: See cardiology consult. D/C metoprolol and clonidine. (11) Osteomyelitis of ankle or foot, right, acute Assessment & Plan: See podiatry note. (12) Gangrene of right foot Assessment & Plan: Needs revascularization prior to surgery. See vasc surg note. (13) Right atrial mass Assessment & Plan: See cardiology note. 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 (16) Hyperkalemia Assessment & Plan: Last Hemodialysis 11/24/16 -see nephrology note. Assessment/Plan Transfer to [facility] today for vascular procedure. Discussed with podiatry and ID DIDIER THORNTON Dec 01, 2016 12:25
--- NOTE | 2016-12-01 12:33 | Nephrology Progress Note ---
Assessment/Plan Problem List: (1) Osteomyelitis (2) ESRD (end stage renal disease) (3) HTN (hypertension) (4) Hepatitis C (5) Hypoglycemia (6) Vascular disease (7) Valvular cardiomyopathy (8) Wpevd-Yxxto-Cotnw syndrome (9) Bradycardia (10) Hyperkalemia Plan Seen on Dialysis 12/01 via cath, , He -may have recirculation from catheter. Patient and refuse to use av fistula yet. . No fluid overload. His pain and infection could be monitored with amputations and earlier rehab--defer to pmd s/p bradycardia episode, bp nl, cardiology eval reviewed, MIAN reviewed. With OWR high risk of hemorrhage if anticoagulated-- Subjective Constitutional: Reports: weakness HEENT: Reports: no symptoms Genitourinary: Reports: no symptoms Neurologic/Psychiatric: Reports: no symptoms Subjective foot pain Objective Objective Last 24 Hour Vital Signs Date Time Temp Pulse Resp B/P Pulse Ox O2 Delivery O2 Flow Rate FiO2 12/01/16 12:03 Nasal Cannula 2.0 12/01/16 08:45 98.1 84 19 138/30 99 Room Air 12/01/16 07:30 Room Air 21 12/01/16 07:30 98 Room Air 21 12/01/16 04:55 98.6 12/01/16 04:00 97.9 89 18 116/33 100 Room Air 11/30/16 22:00 28 11/30/16 21:07 98.6 11/30/16 20:03 98.6 88 20 115/29 98 Room Air 11/30/16 20:02 99 Room Air 11/30/16 20:02 Room Air 11/30/16 18:54 Nasal Cannula 2.0 11/30/16 16:11 Nasal Cannula 2.0 11/30/16 16:00 98.1 80 20 128/40 96 Room Air 11/30/16 16:00 85 Intake and Output 11/30/16 12/01/16 19:00 07:00 Intake Total 300 ml Balance 300 ml Intake Oral 300 ml # Voids 2 Height (Feet): 6 Height (Inches): 6.00 Weight (Pounds): 177 General Appearance: no apparent distress, alert EENT: normal ENT inspection Neck: normal alignment Cardiovascular: normal rate, regular rhythm Respiratory/Chest: lungs clear Abdomen: soft, no organomegaly Extremities: other - no edema, hyperpigment toes 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
[2016-12-01] MEDS ORDERED: DIFLUCAN200 MG ORAL (14:53)
[2016-12-01] MEDS ORDERED: METRONIDAZOLE500 MG ORAL (14:54)
--- NOTE | 2016-12-01 15:13 | Infectious Diseases Prog Note ---
Assessment/Plan Assessment/Plan ASSESSMENT AND PLAN: 1. right foot and heel infected wounds and necrosis/ischemia/gangrene - wound culture with yeast, likely polymicrobial - MRI c/o osteo right ankle and possible right foot - wound culture with nicole, likely polymicrobial infection - podiatry and vascular surgery f/u noted - significant problem with foot is ischemic - continue vancomycin, cefepime, flagy and diflucan - patient will need continued abx for osteo and until surgical intervention - patient may be transferred for surgical intervention regarding right foot ischemia - iv abx have been ordered/arranged and oral scripts written for the next two weeks until further w/u, surgery etc, d/w RN about antibiotics - weekly labs have been ordered also, d/w RN. Patient to f/u with me in two weeks, d/w RN. - wound care per protocol - MIAN without vegetation or thrombus 2. patient getting treated for right heel/foot osteo as outpatient with vancomycin and zosyn based on most recent wound culture in my office 3. End-stage renal disease, on hemodialysis. 4. Hypertension and diabetes, hep c + 5. Human immunodeficiency virus. Continue antiretroviral treatment at this time from home, cd4 ordered. Pt f/u with Dr. Chinchilla for HIV care. 6. Blood sugar and blood pressure control for diabetes and hypertension, per primary. 7. Anemia. 8. Hemodialysis per Renal. 9. Transient ischemic attack. 10. Congestive heart failure. 11. History of osteomyelitis of left foot. 12. Hepatis C. 13. History of seizure. 14. Weakness. 15. Past medical history noted. 16. Allergies to Heparin, meropenem, sulfa, and Zolpidem. 17. MAR was noted. 18. Case was discussed with RN. 19. Social history is negative. 20. Family history is noncontributory. 21. Case discussed with Dr. Thornton. 22. Continue treatment per primary consultants. 23. Wound care protocol. 24. Podiatry followup. 25. Continue Vascular Surgery evaluation. 26. Hypoglycemia treatment per primary. Subjective Constitutional: Denies: fever HEENT: Denies: congestion Respiratory: Denies: shortness of breath Cardiovascular: Denies: chest pain Gastrointestinal/Abdominal: Denies: diarrhea, nausea, vomiting Genitourinary: Reports: other - no agarwal Neurologic: Denies: headache Psychiatric: Denies: depression Skin: Denies: rash Hematologic: Denies: bleeding Musculoskeletal: Reports: pain - right foot pain controlled Allergies: Coded Allergies: HEPARIN (Verified Allergy, Severe, low platelets, 06/11/14) SULFA (SULFONAMIDE ANTIBIOTICS) (Verified Allergy, Severe, nephro toxic, ) ZOLPIDEM (Verified Allergy, Unknown, 05/03/16) MEROPENEM (Verified Adverse Reaction, Intermediate, 04/01/16) Nausea and vomiting Uncoded Allergies: pork products (Allergy, Severe, rashes, 06/11/14) Objective Vital Signs Last 24 Hour Vital Signs Date Time Temp Pulse Resp B/P Pulse Ox O2 Delivery O2 Flow Rate FiO2 12/01/16 13:40 98.2 12/01/16 12:35 98.2 83 18 127/35 Room Air 12/01/16 12:03 Nasal Cannula 2.0 12/01/16 08:45 98.1 84 19 138/30 99 Room Air 12/01/16 07:30 Room Air 21 12/01/16 07:30 98 Room Air 21 12/01/16 04:00 97.9 89 18 116/33 100 Room Air 11/30/16 22:00 28 11/30/16 21:07 98.6 11/30/16 20:03 98.6 88 20 115/29 98 Room Air 11/30/16 20:02 99 Room Air 11/30/16 20:02 Room Air 11/30/16 18:54 Nasal Cannula 2.0 11/30/16 16:11 Nasal Cannula 2.0 11/30/16 16:00 98.1 80 20 128/40 96 Room Air 11/30/16 16:00 85 Height (Feet): 6 Height (Inches): 6.00 Weight (Pounds): 177 General Appearance: no acute distress HEENT: normocephalic, atraumatic, anicteric, mucous membranes moist, PERRL, EOMI, pharynx normal, supple, no JVD Respiratory/Chest: lungs clear, normal breath sounds, no respiratory distress, no accessory muscle use Cardiovascular: normal rate, regular rhythm, no gallop/murmur, no JVD Abdomen: normal bowel sounds, soft, non tender, no organomegaly, non distended Genitourinary: other - no agarwal Extremities: other - right foot ischemic changes without change Skin: no rash 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 Impression: Nonspecific, very small foci of abnormal signal at the dorsal heads of the first and fourth proximal phalanges. If there is evidence of active infection with ulcers in these 2 locations, osteomyelitis should be considered. Please correlate clinically. MIAN - no thrombus or vegetation per cardiology notes Microbiology Date/Time Source Procedure Growth Status 11/29/16 14:30 Nasal Nares MRSA Culture - Final NO METHICILLIN RESISTANT STAPH AUREUS... Complete Labs Test 11/29/16 06:20 11/30/16 06:10 White Blood Count 6.1 K/UL (4.8-10.8) 6.3 K/UL (4.8-10.8) Red Blood Count 4.31 M/UL (4.70-6.10) 4.14 M/UL (4.70-6.10) Hemoglobin 11.1 G/DL (14.2-18.0) 10.8 G/DL (14.2-18.0) Hematocrit 37.1 % (42.0-52.0) 35.3 % (42.0-52.0) Mean Corpuscular Volume 86 FL (80-99) 85 FL (80-99) Mean Corpuscular Hemoglobin 25.7 PG (27.0-31.0) 26.0 PG (27.0-31.0) Mean Corpuscular Hemoglobin Concent 29.8 G/DL (32.0-36.0) 30.5 G/DL (32.0-36.0) Red Cell Distribution Width 20.2 % (11.6-14.8) 19.8 % (11.6-14.8) Platelet Count 284 K/UL (150-450) 311 K/UL (150-450) Mean Platelet Volume 6.8 FL (6.5-10.1) 6.7 FL (6.5-10.1) Neutrophils (%) (Auto) 48.7 % (45.0-75.0) 45.6 % (45.0-75.0) Lymphocytes (%) (Auto) 29.2 % (20.0-45.0) 30.9 % (20.0-45.0) Monocytes (%) (Auto) 15.2 % (1.0-10.0) 15.9 % (1.0-10.0) Eosinophils (%) (Auto) 5.3 % (0.0-3.0) 5.9 % (0.0-3.0) Basophils (%) (Auto) 1.6 % (0.0-2.0) 1.8 % (0.0-2.0) Sodium Level 132 mEQ/L (135-145) 132 mEQ/L (135-145) Potassium Level 4.3 mEQ/L (3.4-4.9) 4.8 mEQ/L (3.4-4.9) Chloride Level 94 mEQ/L (98-107) 93 mEQ/L (98-107) Carbon Dioxide Level 23 mEQ/L (20-30) 20 mEQ/L (20-30) Anion Gap 15 (5-15) 19 (5-15) Blood Urea Nitrogen 51 mg/dL (7-23) 77 mg/dL (7-23) Creatinine 5.9 mg/dL (0.7-1.2) 8.1 mg/dL (0.7-1.2) Estimat Glomerular Filtration Rate 11.9 mL/min (>60) 8.2 mL/min (>60) Glucose Level 138 mg/dL (74-106) 97 mg/dL (74-106) Calcium Level 8.8 mg/dL (8.6-10.2) 8.3 mg/dL (8.6-10.2) Random Vancomycin Level 18.2 ug/mL Current Medications Medications (Trade) Dose Ordered Sig/Zohaib Route PRN Reason Start Time Stop Time Status Last Admin Dose Admin Amlodipine Besylate (Norvasc) 5 mg DAILY ORAL 12/01/16 09:00 12/31/16 08:59 Cefepime HCl 0.5 gm/Dextrose 55 ml @ 110 mls/hr Q24H IVPB 12/01/16 01:00 12/08/16 00:59 12/01/16 01:01 Chlorhexidine Gluconate (Ebony-Hex 2%) 1 applic QHS TOPIC 12/01/16 21:00 12/31/16 20:59 Cinacalcet (Sensipar) 30 mg DAILY ORAL 12/01/16 09:00 12/31/16 08:59 12/01/16 09:02 Clopidogrel Bisulfate (Plavix) 75 mg DAILY ORAL 12/01/16 09:00 12/31/16 08:59 12/01/16 09:03 Emtricitabine (Emtriva) 200 mg WeSa@1800 ORAL 12/01/16 18:00 12/31/16 17:59 Fluconazole (Diflucan) 200 mg DAILY ORAL 12/01/16 09:00 12/08/16 08:59 12/01/16 09:03 Hydromorphone HCl (Dilaudid) 0.5 mg Q4H PRN IVP For Pain 7-10 12/01/16 00:15 12/08/16 00:14 12/01/16 13:10 Metronidazole (Flagyl) 500 mg Q8HR ORAL 12/01/16 06:00 12/08/16 05:59 12/01/16 13:10 Nateglinide (Starlix) 120 mg TIAC ORAL 12/01/16 06:30 12/31/16 06:29 12/01/16 11:58 Oxycodone HCl (Roxicodone) 5 mg Q4H PRN ORAL PAIN 4-6 12/01/16 00:15 12/08/16 00:14 12/01/16 09:03 Patient Own Medication (Patient's Own Med) 2 ea BID ORAL 12/01/16 09:00 12/31/16 08:59 12/01/16 09:03 Sevelamer Carbonate (Renvela) 1,600 mg TID ORAL 12/01/16 09:00 12/31/16 08:59 12/01/16 11:59 Sevelamer Carbonate (Renvela) 2,400 mg THREE TIMES A DAY ORAL 12/01/16 09:00 12/31/16 08:59 12/01/16 11:58 Sodium Chloride (Sodium Chloride 1000ml bag) 1,000 ml @ 500 mls/hr Q2H PRN IVLG sbp<90 during hd 12/01/16 06:00 12/31/16 05:59 Tenofovir Disoproxil Fumarate (Viread) 300 mg Sa@1800 ORAL 12/01/16 18:00 12/31/16 17:59 Vancomycin HCl (Vanco rx to dose) 1 ea DAILY PRN MISC Per rx protocol 12/01/16 09:00 12/31/16 08:59 INOCENCIA DOS SANTOS Dec 01, 2016 15:13
--- NOTE | 2016-12-01 16:45 | Cardiac Electrophysiology PN ---
Assessment/Plan Status Narrative MIAN: Side lobe artifact refuting right atrial mass, the mass seen in the right atrial cavity with MIAN is image artifact of amplatzer device implanted for PFO closure. Eccentric regurgitant of mitral valve through prolapsed posterior leaflet consistent with severe MR Perforated vs cleft non-coronary cusp of the aortic valve leading to eccentric aortic regurgitation consistent with severe AR. Negative bubble study. Assessment/Plan 1. Bradycardia with sinus arrest and junctional rhythm. Ruled out myocardial infarction. Resolved. 2. Hypertension, on Norvasc 5 mg daily. 3. PAF in [place] S/P ablation at [facility] in 2011. Keep off AAs in view of tom episodes.No recurrence 4. Larger right atrial echogenic material/mass. MIAN 11/24/16 showed no intracardiac thrombus. 5. Severe AI and MR. ? Double valve surgery as out patient. 6. Peripheral vascular disease, status post metatarsal amputation, on antibiotic for right foot gangrene. Needs revascularization prior to surgery. See vasc surg note. 7. HIV 8. Hepatitis C. 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 10. Viability study 10/31/16 showed 10% nonviable myocardium. 11. End-stage renal disease, on hemodialysis. DW RN Subjective Subjective Comfortable on tele in SR. No recurrence of atrial fib. Transferred to [facility] Objective Last 24 Hour Vital Signs Date Time Temp Pulse Resp B/P Pulse Ox O2 Delivery O2 Flow Rate FiO2 12/01/16 16:00 98.4 89 18 113/22 99 Room Air 12/01/16 15:26 Room Air 12/01/16 13:40 98.2 12/01/16 12:03 Nasal Cannula 2.0 12/01/16 12:00 98.2 83 18 127/35 99 Room Air 12/01/16 08:00 98.1 84 19 138/30 99 Room Air 12/01/16 07:30 Room Air 21 12/01/16 07:30 98 Room Air 21 12/01/16 04:00 97.9 89 18 116/33 100 Room Air 11/30/16 22:00 28 11/30/16 21:07 98.6 11/30/16 20:03 98.6 88 20 115/29 98 Room Air 11/30/16 20:02 99 Room Air 11/30/16 20:02 Room Air 11/30/16 18:54 Nasal Cannula 2.0 Intake and Output 11/30/16 12/01/16 19:00 07:00 Intake Total 300 ml Balance 300 ml Intake Oral 300 ml # Voids 2 Microbiology Date/Time Source Procedure Growth Status 11/29/16 14:30 Nasal Nares MRSA Culture - Final NO METHICILLIN RESISTANT STAPH AUREUS... Complete Objective HEAD AND NECK: No JVD. LUNGS: Decreased breath sounds.Dialysis Via left subclavian PermCath. CARDIOVASCULAR: Shows regular S1 and S2. ABDOMEN: Soft. EXTREMITIES: No pitting edema. S/P right foot ulcer and left metatarsal amputation. CLIFTON KEARNEY Dec 01, 2016 16:45
[2016-12-01] MEDS: Emtricitabine 200mg tab ORAL SCH (17:14)
[2016-12-01] MEDS ORDERED: Vancomycin 750mg/D5W 275ml IVPB ONE ×2 (17:30)
[2016-12-01] MEDS ORDERED: Tubing IV Secondary IV ONE (21:01)
[2016-12-01] MEDS: Dyna-Hex 2% Top Sol 8oz TOPIC SCH (21:25)
[2016-12-02] VITALS (7 sets, daily range): BP systolic 107–144; BP diastolic 38–69
[2016-12-02] MEDS: Cefepime HCl 0.5 GM in D5W 55 ML IVPB SCH (01:23)
[2016-12-02] MEDS: Hydromorphone 0.5mg/0.5ml inj IVP PRN ×5 (01:26→23:33)
[2016-12-02] MEDS: oxyCODONE 5mg IR tab ORAL PRN ×4 (03:48→19:30)
[2016-12-02] MEDS: metroNIDAZOLE 500mg tab ORAL SCH ×3 (05:52→21:16)
[2016-12-02] MEDS: Sensipar 30mg Tab ORAL SCH (08:28)
[2016-12-02] MEDS: Renvela 2400 mg pkt ORAL SCH ×3 (08:29→17:39)
[2016-12-02] MEDS: Renvela 800mg Pkt ORAL SCH ×3 (08:29→17:39)
[2016-12-02] MEDS: Fluconazole 100mg tab ORAL SCH (08:29)
[2016-12-02] MEDS: VIRACEPT ORAL SCH ×2 (08:29→17:55)
--- NOTE | 2016-12-02 12:27 | Nephrology Progress Note ---
Assessment/Plan Problem List: (1) Osteomyelitis (2) ESRD (end stage renal disease) (3) HTN (hypertension) (4) Hepatitis C (5) Hypoglycemia (6) Vascular disease (7) Valvular cardiomyopathy (8) Hzgmx-Ogifb-Ghofd syndrome (9) Bradycardia (10) Hyperkalemia Plan Seen on Dialysis 12/01 via cath, , He -may have recirculation from catheter. Patient and refuse to use av fistula yet. . No fluid overload. His pain and infection could be monitored with amputations and earlier rehab--defer to pmd s/p bradycardia episode, bp nl, cardiology eval reviewed, MIAN reviewed. With OWR high risk of hemorrhage if anticoagulated-- Subjective Constitutional: Reports: weakness HEENT: Reports: no symptoms Genitourinary: Reports: no symptoms Neurologic/Psychiatric: Reports: no symptoms Subjective foot pain Objective Objective Last 24 Hour Vital Signs Date Time Temp Pulse Resp B/P Pulse Ox O2 Delivery O2 Flow Rate FiO2 12/02/16 12:00 97.7 78 19 144/69 99 Nasal Cannula 3.0 12/02/16 11:43 97.7 12/02/16 09:50 99 Nasal Cannula 3.0 32 12/02/16 08:55 Nasal Cannula 32 12/02/16 08:28 83 137/58 12/02/16 08:01 97.9 83 19 137/58 98 Nasal Cannula 3.0 12/02/16 04:00 97.9 83 20 109/39 97 Nasal Cannula 3.0 12/02/16 00:12 107/38 12/02/16 00:00 98.2 82 20 107/39 99 Nasal Cannula 3.0 12/01/16 21:54 98 Nasal Cannula 3.0 32 12/01/16 21:54 Nasal Cannula 32 12/01/16 20:22 118/45 12/01/16 20:00 97.9 81 20 115/ 100 Nasal Cannula 12/01/16 16:00 98.4 89 18 113/22 99 Room Air 12/01/16 15:26 Room Air Intake and Output 12/01/16 12/02/16 19:00 07:00 Intake Total 415 ml Balance 415 ml Intake Oral 360 ml IV Total 55 ml # Bowel Movements 1 Height (Feet): 6 Height (Inches): 6.00 Weight (Pounds): 174 General Appearance: no apparent distress EENT: normal ENT inspection Neck: non-tender Cardiovascular: normal rate, regular rhythm Respiratory/Chest: lungs clear Extremities: other - ischemia feet DURGA MORE Dec 02, 2016 12:27
--- NOTE | 2016-12-02 13:38 | Internal Med Progress Note ---
Subjective Date of Service: Dec 02, 2016 Physician Name Didier Thornton Attending Physician Didier Thornton Current Medications Medications (Trade) Dose Ordered Sig/Zohaib Route PRN Reason Start Time Stop Time Status Last Admin Dose Admin Amlodipine Besylate (Norvasc) 5 mg DAILY ORAL 12/01/16 09:00 12/31/16 08:59 12/02/16 08:28 Cefepime HCl 0.5 gm/Dextrose 55 ml @ 110 mls/hr Q24H IVPB 12/01/16 01:00 12/08/16 00:59 12/02/16 01:23 Chlorhexidine Gluconate (Ebony-Hex 2%) 1 applic QHS TOPIC 12/01/16 21:00 12/31/16 20:59 12/01/16 21:25 Cinacalcet (Sensipar) 30 mg DAILY ORAL 12/01/16 09:00 12/31/16 08:59 12/02/16 08:28 Clopidogrel Bisulfate (Plavix) 75 mg DAILY ORAL 12/01/16 09:00 12/31/16 08:59 12/02/16 08:29 Emtricitabine (Emtriva) 200 mg WeSa@1800 ORAL 12/01/16 18:00 12/31/16 17:59 12/01/16 17:14 Fluconazole (Diflucan) 200 mg DAILY ORAL 12/01/16 09:00 12/08/16 08:59 12/02/16 08:29 Hydromorphone HCl (Dilaudid) 0.5 mg Q4H PRN IVP For Pain 7-10 12/01/16 00:15 12/08/16 00:14 12/02/16 11:13 Metronidazole (Flagyl) 500 mg Q8HR ORAL 12/01/16 06:00 12/08/16 05:59 12/02/16 05:52 Nateglinide (Starlix) 120 mg TIAC ORAL 12/01/16 06:30 12/31/16 06:29 12/02/16 12:19 Oxycodone HCl (Roxicodone) 5 mg Q4H PRN ORAL PAIN 4-6 12/01/16 00:15 12/08/16 00:14 12/02/16 08:40 Patient Own Medication (Patient's Own Med) 2 ea BID ORAL 12/01/16 09:00 9/4/17 08:59 12/02/16 08:29 Sevelamer Carbonate (Renvela) 1,600 mg TID ORAL 12/01/16 09:00 12/31/16 08:59 12/02/16 08:29 Sevelamer Carbonate (Renvela) 2,400 mg THREE TIMES A DAY ORAL 12/01/16 09:00 12/31/16 08:59 12/02/16 08:29 Sodium Chloride (Sodium Chloride 1000ml bag) 1,000 ml @ 500 mls/hr Q2H PRN IVLG sbp<90 during hd 12/01/16 06:00 12/31/16 05:59 Tenofovir Disoproxil Fumarate (Viread) 300 mg Sa@1800 ORAL 12/01/16 18:00 12/31/16 17:59 12/01/16 17:14 Vancomycin HCl (Vanco rx to dose) 1 ea DAILY PRN MISC Per rx protocol 12/01/16 09:00 12/31/16 08:59 Allergies: Coded Allergies: HEPARIN (Verified Allergy, Severe, low platelets, 06/11/14) SULFA (SULFONAMIDE ANTIBIOTICS) (Verified Allergy, Severe, nephro toxic, ) ZOLPIDEM (Verified Allergy, Unknown, 05/03/16) MEROPENEM (Verified Adverse Reaction, Intermediate, 04/01/16) Nausea and vomiting Uncoded Allergies: pork products (Allergy, Severe, rashes, 06/11/14) ROS Limited/Unobtainable: No Constitutional: Reports: no symptoms HEENT: Reports: no symptoms Cardiovascular: Reports: no symptoms Respiratory: Reports: no symptoms Gastrointestinal/Abdominal: Reports: no symptoms Genitourinary: Reports: no symptoms Neurologic/Psychiatric: Reports: no symptoms Subjective 61 YO M admitted with shortness of breath, hypoglycemia and right diabetic foot ulcer. Now gangrene right foot with osteomyelitis. A[facility] for [facility] procedure. Objective Last Vital Signs Date Time Temp Pulse Resp B/P Pulse Ox O2 Delivery O2 Flow Rate FiO2 12/02/16 12:00 97.7 78 19 144/69 99 Nasal Cannula 3.0 12/02/16 09:50 32 Microbiology Date/Time Source Procedure Growth Status 11/29/16 14:30 Nasal Nares MRSA Culture - Final NO METHICILLIN RESISTANT STAPH AUREUS... Complete Intake and Output 12/01/16 12/02/16 19:00 07:00 Intake Total 415 ml Balance 415 ml Intake Oral 360 ml IV Total 55 ml # Bowel Movements 1 Objective General Appearance: WD/WN, no apparent distress, alert EENT: PERRL/EOMI, normal ENT inspection, TMs normal Neck: non-tender, normal alignment, supple Cardiovascular: normal peripheral pulses, sinus bradycardia, regular rhythm, no gallop/murmur, no JVD Respiratory/Chest: chest wall non-tender, lungs clear, normal breath sounds, no respiratory distress, no accessory muscle use Abdomen: normal bowel sounds, non tender, soft, no organomegaly, no mass Extremities: right foot dressing clean and dry; normal range of motion 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 See podiatry consult note. cont vanco, cefepime and flagyl per ID (6) HIV disease Assessment & Plan: Continue HAART per ID (7) HTN (hypertension) Assessment & Plan: Continue metoprolol (8) Diabetes Assessment & Plan: Hypoglycemic on arrival. (9) ESRD (end stage renal disease) Assessment & Plan: Last Hemodialysis 12/01/16. See nephrology note-Dr Medina (10) Bradycardia Assessment & Plan: See cardiology consult. D/C metoprolol and clonidine. (11) Osteomyelitis of ankle or foot, right, acute Assessment & Plan: See podiatry note. (12) Gangrene of right foot Assessment & Plan: Needs revascularization prior to surgery. See vasc surg note. (13) Right atrial mass Assessment & Plan: See cardiology note. 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 (16) Hyperkalemia Assessment & Plan: Last Hemodialysis 12/01/16 -see nephrology note. Status: not improved Assessment/Plan Transfer to [facility] on hold awaiting authorization from insurance. Discussed with podiatry and ID DIDIER THORNTON Dec 02, 2016 13:38
[2016-12-02] MEDS: Dyna-Hex 2% Top Sol 8oz TOPIC SCH (21:15)
[2016-12-03] VITALS (8 sets, daily range): BP systolic 115–154; BP diastolic 42–93
[2016-12-03] MEDS: Cefepime HCl 0.5 GM in D5W 55 ML IVPB SCH ×2 (01:32→23:56)
[2016-12-03] MEDS: Hydromorphone 0.5mg/0.5ml inj IVP PRN ×4 (03:58→21:35)
[2016-12-03] MEDS: metroNIDAZOLE 500mg tab ORAL SCH ×3 (05:47→20:54)
[2016-12-03 07:06] LABS: BASOPHILS % (AUTO) 1.2 % (0.0-2.0); EOSINOPHILS % (AUTO) 5.7 % (0.0-3.0); LYMPHOCYTES % (AUTO) 32.6 % (20.0-45.0); MEAN CORPUSCULAR HEMOGLOBIN 27.1 PG (27.0-31.0); MEAN CORPUSCULAR HGB CONC 32.2 G/DL (32.0-36.0); MEAN CORPUSCULAR VOLUME 84 FL (80-99); MEAN PLATELET VOLUME 7.4 FL (6.5-10.1); MONOCYTES % (AUTO) 11.6 % (1.0-10.0); NEUTROPHILS % (AUTO) 48.9 % (45.0-75.0); PLATELET COUNT 278 K/UL (150-450); RED BLOOD COUNT 4.21 M/UL (4.70-6.10); RED CELL DISTRIBUTION WIDTH 19.7 % (11.6-14.8); WHITE BLOOD COUNT 6.4 K/UL (4.8-10.8)
[2016-12-03 07:12] LABS: CALCIUM 8.5 mg/dL (8.6-10.2); CREATININE 8.6 mg/dL (0.7-1.2); GLOMERULAR FILTRATION RATE 7.6 mL/min (>60)
[2016-12-03] MEDS: Fluconazole 100mg tab ORAL SCH (08:43)
[2016-12-03] MEDS: Renvela 2400 mg pkt ORAL SCH ×3 (08:44→18:12)
[2016-12-03] MEDS: VIRACEPT ORAL SCH ×2 (08:44→18:00)
[2016-12-03] MEDS: Sensipar 30mg Tab ORAL SCH (08:45)
[2016-12-03] MEDS: Renvela 800mg Pkt ORAL SCH ×3 (08:51→18:12)
[2016-12-03 09:12] LABS: POTASSIUM 4.9 mEQ/L (3.4-4.9)
--- NOTE | 2016-12-03 12:01 | Internal Med Progress Note ---
Subjective Date of Service: Dec 03, 2016 Physician Name Didier Thornton Attending Physician Didier Thornton Current Medications Medications (Trade) Dose Ordered Sig/Zohaib Route PRN Reason Start Time Stop Time Status Last Admin Dose Admin Amlodipine Besylate (Norvasc) 5 mg DAILY ORAL 12/01/16 09:00 12/31/16 08:59 12/02/16 08:28 Cefepime HCl 0.5 gm/Dextrose 55 ml @ 110 mls/hr Q24H IVPB 12/01/16 01:00 12/08/16 00:59 12/03/16 01:32 Chlorhexidine Gluconate (Ebony-Hex 2%) 1 applic QHS TOPIC 12/01/16 21:00 12/31/16 20:59 12/02/16 21:15 Cinacalcet (Sensipar) 30 mg DAILY ORAL 12/01/16 09:00 12/31/16 08:59 12/03/16 08:45 Clopidogrel Bisulfate (Plavix) 75 mg DAILY ORAL 12/01/16 09:00 12/31/16 08:59 12/03/16 08:44 Emtricitabine (Emtriva) 200 mg WeSa@1800 ORAL 12/01/16 18:00 12/31/16 17:59 12/01/16 17:14 Fluconazole (Diflucan) 200 mg DAILY ORAL 12/01/16 09:00 12/08/16 08:59 12/03/16 08:43 Hydromorphone HCl (Dilaudid) 0.5 mg Q4H PRN IVP For Pain 7-10 12/01/16 00:15 12/08/16 00:14 12/03/16 08:46 Metronidazole (Flagyl) 500 mg Q8HR ORAL 12/01/16 06:00 12/08/16 05:59 12/03/16 05:47 Nateglinide (Starlix) 120 mg TIAC ORAL 12/01/16 06:30 12/31/16 06:29 12/03/16 05:47 Oxycodone HCl (Roxicodone) 5 mg Q4H PRN ORAL PAIN 4-6 12/01/16 00:15 12/08/16 00:14 12/02/16 19:30 Patient Own Medication (Patient's Own Med) 2 ea BID ORAL 12/01/16 09:00 9/4/17 08:59 12/03/16 08:44 Sevelamer Carbonate (Renvela) 1,600 mg TID ORAL 12/01/16 09:00 12/31/16 08:59 12/03/16 08:51 Sevelamer Carbonate (Renvela) 2,400 mg THREE TIMES A DAY ORAL 12/01/16 09:00 12/31/16 08:59 12/03/16 08:44 Sodium Chloride (Sodium Chloride 1000ml bag) 1,000 ml @ 500 mls/hr Q2H PRN IVLG sbp<90 during hd 12/01/16 06:00 12/31/16 05:59 Tenofovir Disoproxil Fumarate (Viread) 300 mg Sa@1800 ORAL 12/01/16 18:00 12/31/16 17:59 12/01/16 17:14 Vancomycin HCl (Vanco rx to dose) 1 ea DAILY PRN MISC Per rx protocol 12/01/16 09:00 12/31/16 08:59 Allergies: Coded Allergies: HEPARIN (Verified Allergy, Severe, low platelets, 06/11/14) SULFA (SULFONAMIDE ANTIBIOTICS) (Verified Allergy, Severe, nephro toxic, ) ZOLPIDEM (Verified Allergy, Unknown, 05/03/16) MEROPENEM (Verified Adverse Reaction, Intermediate, 04/01/16) Nausea and vomiting Uncoded Allergies: pork products (Allergy, Severe, rashes, 06/11/14) ROS Limited/Unobtainable: No Constitutional: Reports: no symptoms HEENT: Reports: no symptoms Cardiovascular: Reports: no symptoms Respiratory: Reports: no symptoms Gastrointestinal/Abdominal: Reports: no symptoms Genitourinary: Reports: no symptoms Neurologic/Psychiatric: Reports: no symptoms Subjective 61 YO M admitted with shortness of breath, hypoglycemia and right diabetic foot ulcer. Now gangrene right foot with osteomyelitis. Await transfer to [facility] for vascular procedure-see case management note. Objective Last Vital Signs Date Time Temp Pulse Resp B/P Pulse Ox O2 Delivery O2 Flow Rate FiO2 12/03/16 08:58 81 143/42 12/03/16 08:52 97.7 20 100 Room Air 12/03/16 07:49 3.0 32 Laboratory Tests Test 12/03/16 05:15 White Blood Count 6.4 K/UL (4.8-10.8) Red Blood Count 4.21 M/UL (4.70-6.10) L Hemoglobin 11.4 G/DL (14.2-18.0) L Hematocrit 35.4 % (42.0-52.0) L Mean Corpuscular Volume 84 FL (80-99) Mean Corpuscular Hemoglobin 27.1 PG (27.0-31.0) Mean Corpuscular Hemoglobin Concent 32.2 G/DL (32.0-36.0) Red Cell Distribution Width 19.7 % (11.6-14.8) H Platelet Count 278 K/UL (150-450) Mean Platelet Volume 7.4 FL (6.5-10.1) Neutrophils (%) (Auto) 48.9 % (45.0-75.0) Lymphocytes (%) (Auto) 32.6 % (20.0-45.0) Monocytes (%) (Auto) 11.6 % (1.0-10.0) H Eosinophils (%) (Auto) 5.7 % (0.0-3.0) H Basophils (%) (Auto) 1.2 % (0.0-2.0) Sodium Level 133 mEQ/L (135-145) L Potassium Level 4.9 mEQ/L (3.4-4.9) Chloride Level 89 mEQ/L (98-107) L Carbon Dioxide Level 24 mEQ/L (20-30) Anion Gap 20 (5-15) H Blood Urea Nitrogen 91 mg/dL (7-23) H Creatinine 8.6 mg/dL (0.7-1.2) H Estimat Glomerular Filtration Rate 7.6 mL/min (>60) Glucose Level 158 mg/dL (74-106) H Calcium Level 8.5 mg/dL (8.6-10.2) L Random Vancomycin Level 29.7 ug/mL Intake and Output 12/02/16 12/03/16 19:00 07:00 Intake Total 360 ml 355 ml Balance 360 ml 355 ml Intake Oral 360 ml 300 ml IV Total 55 ml # Voids 2 Objective General Appearance: WD/WN, no apparent distress, alert EENT: PERRL/EOMI, normal ENT inspection, TMs normal Neck: non-tender, normal alignment, supple Cardiovascular: normal peripheral pulses, sinus bradycardia, regular rhythm, no gallop/murmur, no JVD Respiratory/Chest: chest wall non-tender, lungs clear, normal breath sounds, no respiratory distress, no accessory muscle use Abdomen: normal bowel sounds, non tender, soft, no organomegaly, no mass Extremities: right foot dressing clean and dry; normal range of motion Neurologic: recenterer II-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 See podiatry consult note. cont vanco, cefepime and flagyl per ID (6) HIV disease Assessment & Plan: Continue HAART per ID (7) HTN (hypertension) Assessment & Plan: Continue metoprolol (8) Diabetes Assessment & Plan: Hypoglycemic on arrival. (9) ESRD (end stage renal disease) Assessment & Plan: Last Hemodialysis 12/01/16. See nephrology note-Dr Medina (10) Bradycardia Assessment & Plan: See cardiology consult. D/C metoprolol and clonidine. (11) Osteomyelitis of ankle or foot, right, acute Assessment & Plan: See podiatry note. (12) Gangrene of right foot Assessment & Plan: Needs revascularization prior to surgery. See vasc surg note. (13) Right atrial mass Assessment & Plan: See cardiology note. 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 (16) Hyperkalemia Assessment & Plan: Last Hemodialysis 12/01/16 -see nephrology note. Status: stable Assessment/Plan Transfer to [facility]-see case management note. Discussed with podiatry and ID DIDIER THORNTON Dec 03, 2016 12:01
[2016-12-03] MEDS: oxyCODONE 5mg IR tab ORAL PRN (12:32)
--- NOTE | 2016-12-03 12:41 | Infectious Diseases Prog Note ---
Assessment/Plan Assessment/Plan ASSESSMENT AND PLAN: 1. right foot and heel infected wounds and necrosis/ischemia/gangrene - wound culture with yeast, likely polymicrobial - MRI c/o osteo right ankle and possible right foot - wound culture with nicole, likely polymicrobial infection - podiatry and vascular surgery f/u noted - significant problem with foot is ischemic - continue vancomycin, cefepime, flagy and diflucan - patient will need continued abx for osteo and until surgical intervention - patient may be transferred for surgical intervention regarding right foot ischemia - iv abx have been ordered/arranged and oral scripts written for the next two weeks until further w/u/surgery, if needed - weekly labs have been ordered also, d/w RN. Patient to f/u with me in two weeks, d/w RN. - wound care per protocol - MIAN without vegetation or thrombus 2. patient getting treated for right heel/foot osteo as outpatient with vancomycin and zosyn based on most recent wound culture in my office 3. End-stage renal disease, on hemodialysis. 4. Hypertension and diabetes, hep c + 5. Human immunodeficiency virus. Continue antiretroviral treatment at this time from home, cd4 ordered. Pt f/u with Dr. Chinchilla for HIV care. 6. Blood sugar and blood pressure control for diabetes and hypertension, per primary. 7. Anemia. 8. Hemodialysis per Renal. 9. Transient ischemic attack. 10. Congestive heart failure. 11. History of osteomyelitis of left foot. 12. Hepatis C. 13. History of seizure. 14. Weakness. 15. Past medical history noted. 16. Allergies to Heparin, meropenem, sulfa, and Zolpidem. 17. MAR was noted. 18. Case was discussed with RN. 19. Social history is negative. 20. Family history is noncontributory. 21. Case discussed with Dr. Thornton. 22. Continue treatment per primary consultants. 23. Wound care protocol. 24. Podiatry followup. 25. Continue Vascular Surgery evaluation. 26. Hypoglycemia treatment per primary. Subjective Constitutional: Denies: fever HEENT: Denies: congestion Respiratory: Denies: shortness of breath Cardiovascular: Denies: chest pain Gastrointestinal/Abdominal: Denies: diarrhea, nausea, vomiting Genitourinary: Reports: other - no agarwal Neurologic: Denies: headache Psychiatric: Denies: depression Skin: Denies: rash Hematologic: Denies: bleeding Musculoskeletal: Reports: pain - controlled Allergies: Coded Allergies: HEPARIN (Verified Allergy, Severe, low platelets, 06/11/14) SULFA (SULFONAMIDE ANTIBIOTICS) (Verified Allergy, Severe, nephro toxic, ) ZOLPIDEM (Verified Allergy, Unknown, 05/03/16) MEROPENEM (Verified Adverse Reaction, Intermediate, 04/01/16) Nausea and vomiting Uncoded Allergies: pork products (Allergy, Severe, rashes, 06/11/14) Objective Vital Signs Last 24 Hour Vital Signs Date Time Temp Pulse Resp B/P Pulse Ox O2 Delivery O2 Flow Rate FiO2 12/03/16 12:23 83 154/71 12/03/16 08:58 81 143/42 12/03/16 08:52 97.7 85 20 137/93 100 Room Air 12/03/16 07:49 100 Nasal Cannula 3.0 32 12/03/16 07:49 Nasal Cannula 3.0 32 12/03/16 04:00 97.9 82 18 121/42 99 Room Air 12/03/16 00:00 97.8 82 18 118/46 97 Nasal Cannula 3.0 12/02/16 20:00 98.3 88 18 110/48 98 Nasal Cannula 3.0 12/02/16 19:34 98 Nasal Cannula 3.0 32 12/02/16 19:33 Nasal Cannula 3.0 32 12/02/16 18:09 98.0 12/02/16 16:00 98.0 81 20 136/62 97 Nasal Cannula 3.0 Height (Feet): 6 Height (Inches): 6.00 Weight (Pounds): 184 General Appearance: no acute distress HEENT: normocephalic, atraumatic, anicteric, mucous membranes moist, PERRL, EOMI, pharynx normal, supple, no JVD Respiratory/Chest: lungs clear, normal breath sounds, no respiratory distress, no accessory muscle use Cardiovascular: normal rate, regular rhythm, no gallop/murmur, no JVD Abdomen: normal bowel sounds, soft, non tender, no organomegaly, non distended Genitourinary: other - no agarwal Extremities: other - no change in ischemic changes Skin: no rash Neurologic/Psychiatric: broomcorn thresher II-XII 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 Impression: Nonspecific, very small foci of abnormal signal at the dorsal heads of the first and fourth proximal phalanges. If there is evidence of active infection with ulcers in these 2 locations, osteomyelitis should be considered. Please correlate clinically. MIAN - no thrombus or vegetation per cardiology notes Microbiology Date/Time Source Procedure Growth Status 11/11/16 16:05 Blood Blood Culture - Final NO GROWTH AFTER 5 DAYS Complete 11/29/16 14:30 Nasal Nares MRSA Culture - Final NO METHICILLIN RESISTANT STAPH AUREUS... Complete 11/13/16 02:00 Foot Right Gram Stain - Final Complete 11/13/16 02:00 Aerobic Culture - Final Nicole Parapsilosis Complete 11/13/16 02:00 Foot Right Anaerobic Culture - Final NO ANAEROBES ISOLATED Complete Laboratory Tests Test 12/03/16 05:15 White Blood Count 6.4 K/UL (4.8-10.8) Red Blood Count 4.21 M/UL (4.70-6.10) L Hemoglobin 11.4 G/DL (14.2-18.0) L Hematocrit 35.4 % (42.0-52.0) L Mean Corpuscular Volume 84 FL (80-99) Mean Corpuscular Hemoglobin 27.1 PG (27.0-31.0) Mean Corpuscular Hemoglobin Concent 32.2 G/DL (32.0-36.0) Red Cell Distribution Width 19.7 % (11.6-14.8) H Platelet Count 278 K/UL (150-450) Mean Platelet Volume 7.4 FL (6.5-10.1) Neutrophils (%) (Auto) 48.9 % (45.0-75.0) Lymphocytes (%) (Auto) 32.6 % (20.0-45.0) Monocytes (%) (Auto) 11.6 % (1.0-10.0) H Eosinophils (%) (Auto) 5.7 % (0.0-3.0) H Basophils (%) (Auto) 1.2 % (0.0-2.0) Sodium Level 133 mEQ/L (135-145) L Potassium Level 4.9 mEQ/L (3.4-4.9) Chloride Level 89 mEQ/L (98-107) L Carbon Dioxide Level 24 mEQ/L (20-30) Anion Gap 20 (5-15) H Blood Urea Nitrogen 91 mg/dL (7-23) H Creatinine 8.6 mg/dL (0.7-1.2) H Estimat Glomerular Filtration Rate 7.6 mL/min (>60) Glucose Level 158 mg/dL (74-106) H Calcium Level 8.5 mg/dL (8.6-10.2) L Random Vancomycin Level 29.7 ug/mL Current Medications Medications (Trade) Dose Ordered Sig/Zohaib Route PRN Reason Start Time Stop Time Status Last Admin Dose Admin Amlodipine Besylate (Norvasc) 5 mg DAILY ORAL 12/01/16 09:00 12/31/16 08:59 12/03/16 12:23 Cefepime HCl 0.5 gm/Dextrose 55 ml @ 110 mls/hr Q24H IVPB 12/01/16 01:00 12/08/16 00:59 12/03/16 01:32 Chlorhexidine Gluconate (Ebony-Hex 2%) 1 applic QHS TOPIC 12/01/16 21:00 12/31/16 20:59 12/02/16 21:15 Cinacalcet (Sensipar) 30 mg DAILY ORAL 12/01/16 09:00 12/31/16 08:59 12/03/16 08:45 Clopidogrel Bisulfate (Plavix) 75 mg DAILY ORAL 12/01/16 09:00 12/31/16 08:59 12/03/16 08:44 Emtricitabine (Emtriva) 200 mg WeSa@1800 ORAL 12/01/16 18:00 12/31/16 17:59 12/01/16 17:14 Fluconazole (Diflucan) 200 mg DAILY ORAL 12/01/16 09:00 12/08/16 08:59 12/03/16 08:43 Hydromorphone HCl (Dilaudid) 0.5 mg Q4H PRN IVP For Pain 7-10 12/01/16 00:15 12/08/16 00:14 12/03/16 08:46 Metronidazole (Flagyl) 500 mg Q8HR ORAL 12/01/16 06:00 12/08/16 05:59 12/03/16 05:47 Nateglinide (Starlix) 120 mg TIAC ORAL 12/01/16 06:30 12/31/16 06:29 12/03/16 12:22 Oxycodone HCl (Roxicodone) 5 mg Q4H PRN ORAL PAIN 4-6 12/01/16 00:15 12/08/16 00:14 12/03/16 12:32 Patient Own Medication (Patient's Own Med) 2 ea BID ORAL 12/01/16 09:00 12/31/16 08:59 12/03/16 08:44 Sevelamer Carbonate (Renvela) 1,600 mg TID ORAL 12/01/16 09:00 12/31/16 08:59 12/03/16 08:51 Sevelamer Carbonate (Renvela) 2,400 mg THREE TIMES A DAY ORAL 12/01/16 09:00 12/31/16 08:59 12/03/16 08:44 Sodium Chloride (Sodium Chloride 1000ml bag) 1,000 ml @ 500 mls/hr Q2H PRN IVLG sbp<90 during hd 12/01/16 06:00 12/31/16 05:59 Tenofovir Disoproxil Fumarate (Viread) 300 mg Sa@1800 ORAL 12/01/16 18:00 12/31/16 17:59 12/01/16 17:14 Vancomycin HCl (Vanco rx to dose) 1 ea DAILY PRN MISC Per rx protocol 12/01/16 09:00 12/31/16 08:59 INOCENCIA DOS SANTOS Dec 03, 2016 12:41
--- NOTE | 2016-12-03 14:15 | Nephrology Progress Note ---
Assessment/Plan Problem List: (1) Osteomyelitis (2) ESRD (end stage renal disease) (3) HTN (hypertension) (4) Hepatitis C (5) Hypoglycemia (6) Vascular disease (7) Valvular cardiomyopathy (8) Qvuhy-Uuiay-Jpqre syndrome (9) Bradycardia (10) Hyperkalemia Plan Dialysis 12/03 via cath, , He -may have recirculation from catheter. Patient and refuse to use av fistula yet. . No fluid overload. s/p bradycardia episode, bp nl, cardiology eval reviewed, MIAN reviewed. With OWR high risk of hemorrhage if anticoagulated-- Subjective Constitutional: Reports: no symptoms HEENT: Reports: no symptoms Genitourinary: Reports: no symptoms Neurologic/Psychiatric: Reports: no symptoms Subjective foot pain Objective Objective Last 24 Hour Vital Signs Date Time Temp Pulse Resp B/P Pulse Ox O2 Delivery O2 Flow Rate FiO2 12/03/16 12:46 97.2 83 20 154/71 100 Room Air 12/03/16 12:23 83 154/71 12/03/16 08:58 81 143/42 12/03/16 08:52 97.7 85 20 137/93 100 Room Air 12/03/16 07:49 100 Nasal Cannula 3.0 32 12/03/16 07:49 Nasal Cannula 3.0 32 12/03/16 04:00 97.9 82 18 121/42 99 Room Air 12/03/16 00:00 97.8 82 18 118/46 97 Nasal Cannula 3.0 12/02/16 20:00 98.3 88 18 110/48 98 Nasal Cannula 3.0 12/02/16 19:34 98 Nasal Cannula 3.0 32 12/02/16 19:33 Nasal Cannula 3.0 32 12/02/16 18:09 98.0 12/02/16 16:00 98.0 81 20 136/62 97 Nasal Cannula 3.0 Intake and Output 12/02/16 12/03/16 19:00 07:00 Intake Total 360 ml 355 ml Balance 360 ml 355 ml Intake Oral 360 ml 300 ml IV Total 55 ml # Voids 2 Laboratory Tests 12/03/16 05:15: White Blood Count 6.4, Red Blood Count 4.21L, Hemoglobin 11.4L, Hematocrit 35.4L , Mean Corpuscular Volume 84, Mean Corpuscular Hemoglobin 27.1, Mean Corpuscular Hemoglobin Concent 32.2, Red Cell Distribution Width 19.7H, Platelet Count 278, Mean Platelet Volume 7.4, Neutrophils (%) (Auto) 48.9, Lymphocytes (%) (Auto) 32.6, Monocytes (%) (Auto) 11.6H, Eosinophils (%) (Auto) 5.7H, Basophils (%) (Auto) 1.2, Sodium Level 133L, Potassium Level 4.9, Chloride Level 89L, Carbon Dioxide Level 24, Anion Gap 20H, Blood Urea Nitrogen 91H, Creatinine 8.6H, Estimat Glomerular Filtration Rate 7.6, Glucose Level 158H , Calcium Level 8.5L, Random Vancomycin Level 29.7 Height (Feet): 6 Height (Inches): 6.00 Weight (Pounds): 184 General Appearance: no apparent distress EENT: PERRL/EOMI Neck: non-tender, normal alignment Cardiovascular: normal rate, regular rhythm Respiratory/Chest: lungs clear Abdomen: non tender, soft Extremities: other - hyperpigment toes Neurologic: safety investigator II-XII grossly normal DURGA MORE Dec 03, 2016 14:15
--- NOTE | 2016-12-03 16:09 | Cardiac Electrophysiology PN ---
Assessment/Plan Status Narrative MIAN: Side lobe artifact refuting right atrial mass, the mass seen in the right atrial cavity with MIAN is image artifact of amplatzer device implanted for PFO closure. Eccentric regurgitant of mitral valve through prolapsed posterior leaflet consistent with severe MR Perforated vs cleft non-coronary cusp of the aortic valve leading to eccentric aortic regurgitation consistent with severe AR. Negative bubble study. Assessment/Plan 1. Bradycardia with sinus arrest and junctional rhythm. Ruled out myocardial infarction. Resolved. 2. Hypertension, on Norvasc 5 mg daily. 3. PAF in SR S/P ablation at [facility] in 2011.Off AAs in view of tom episodes.No recurrence 4. Larger right atrial echogenic material/mass. MIAN 11/24/16 showed no intracardiac thrombus. 5. Severe AI and MR. ? Double valve surgery as out patient. 6. Peripheral vascular disease, status post metatarsal amputation, on antibiotic for right foot gangrene. Needs revascularization prior to surgery. See vasc surg note. 7. HIV 8. Hepatitis C. 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 10. Viability study 10/31/16 showed 10% nonviable myocardium. 11. End-stage renal disease, on hemodialysis. DW RN waiting transfer for leg angio by Dr Dang to [facility]. Subjective Subjective Comfortable in NAD. No HD today. RN at bedside. Objective Last 24 Hour Vital Signs Date Time Temp Pulse Resp B/P Pulse Ox O2 Delivery O2 Flow Rate FiO2 12/03/16 12:46 97.2 83 20 154/71 100 Room Air 12/03/16 12:23 83 154/71 12/03/16 08:58 81 143/42 12/03/16 08:52 97.7 85 20 137/93 100 Room Air 12/03/16 07:49 100 Nasal Cannula 3.0 32 12/03/16 07:49 Nasal Cannula 3.0 32 12/03/16 04:00 97.9 82 18 121/42 99 Room Air 12/03/16 00:00 97.8 82 18 118/46 97 Nasal Cannula 3.0 12/02/16 20:00 98.3 88 18 110/48 98 Nasal Cannula 3.0 12/02/16 19:34 98 Nasal Cannula 3.0 32 12/02/16 19:33 Nasal Cannula 3.0 32 12/02/16 18:09 98.0 Intake and Output 12/02/16 12/03/16 19:00 07:00 Intake Total 360 ml 355 ml Balance 360 ml 355 ml Intake Oral 360 ml 300 ml IV Total 55 ml # Voids 2 Laboratory Tests Test 12/03/16 05:15 White Blood Count 6.4 K/UL (4.8-10.8) Red Blood Count 4.21 M/UL (4.70-6.10) L Hemoglobin 11.4 G/DL (14.2-18.0) L Hematocrit 35.4 % (42.0-52.0) L Mean Corpuscular Volume 84 FL (80-99) Mean Corpuscular Hemoglobin 27.1 PG (27.0-31.0) Mean Corpuscular Hemoglobin Concent 32.2 G/DL (32.0-36.0) Red Cell Distribution Width 19.7 % (11.6-14.8) H Platelet Count 278 K/UL (150-450) Mean Platelet Volume 7.4 FL (6.5-10.1) Neutrophils (%) (Auto) 48.9 % (45.0-75.0) Lymphocytes (%) (Auto) 32.6 % (20.0-45.0) Monocytes (%) (Auto) 11.6 % (1.0-10.0) H Eosinophils (%) (Auto) 5.7 % (0.0-3.0) H Basophils (%) (Auto) 1.2 % (0.0-2.0) Sodium Level 133 mEQ/L (135-145) L Potassium Level 4.9 mEQ/L (3.4-4.9) Chloride Level 89 mEQ/L (98-107) L Carbon Dioxide Level 24 mEQ/L (20-30) Anion Gap 20 (5-15) H Blood Urea Nitrogen 91 mg/dL (7-23) H Creatinine 8.6 mg/dL (0.7-1.2) H Estimat Glomerular Filtration Rate 7.6 mL/min (>60) Glucose Level 158 mg/dL (74-106) H Calcium Level 8.5 mg/dL (8.6-10.2) L Random Vancomycin Level 29.7 ug/mL Objective HEAD AND NECK: No JVD. LUNGS: Decreased breath sounds.Dialysis Via left subclavian PermCath. CARDIOVASCULAR: Shows regular S1 and S2. ABDOMEN: Soft. EXTREMITIES: No pitting edema. S/P right foot ulcer and left metatarsal amputation. CLIFTON KEARNEY Dec 03, 2016 16:09
[2016-12-03] MEDS: Dyna-Hex 2% Top Sol 8oz TOPIC SCH (20:47)
[2016-12-04] MEDS: Hydromorphone 0.5mg/0.5ml inj IVP PRN ×4 (01:41→22:03)
[2016-12-04 04:00] VITALS: BP 130/39
[2016-12-04] MEDS: metroNIDAZOLE 500mg tab ORAL SCH ×3 (05:06→22:03)
[2016-12-04 06:57] LABS: BASOPHILS % (AUTO) 1.2 % (0.0-2.0); EOSINOPHILS % (AUTO) 3.3 % (0.0-3.0); MEAN CORPUSCULAR HEMOGLOBIN 26.2 PG (27.0-31.0); MEAN CORPUSCULAR VOLUME 84 FL (80-99); MEAN PLATELET VOLUME 7.1 FL (6.5-10.1); MONOCYTES % (AUTO) 11.7 % (1.0-10.0); NEUTROPHILS % (AUTO) 59.9 % (45.0-75.0); PLATELET COUNT 267 K/UL (150-450); RED BLOOD COUNT 4.43 M/UL (4.70-6.10); RED CELL DISTRIBUTION WIDTH 20.2 % (11.6-14.8); WHITE BLOOD COUNT 7.3 K/UL (4.8-10.8)
[2016-12-04 07:18] LABS: CALCIUM 9.2 mg/dL (8.6-10.2); CREATININE 7.3 mg/dL (0.7-1.2); GLOMERULAR FILTRATION RATE 9.2 mL/min (>60); POTASSIUM 4.9 mEQ/L (3.4-4.9)
[2016-12-04 08:06] VITALS: BP 126/33
[2016-12-04] MEDS: Renvela 2400 mg pkt ORAL SCH ×3 (08:11→17:03)
[2016-12-04] MEDS: Renvela 800mg Pkt ORAL SCH ×3 (08:11→17:04)
[2016-12-04] MEDS: Fluconazole 100mg tab ORAL SCH (08:12)
[2016-12-04] MEDS: Sensipar 30mg Tab ORAL SCH (08:12)
[2016-12-04] MEDS: oxyCODONE 5mg IR tab ORAL PRN ×3 (08:16→16:03)
[2016-12-04] MEDS: VIRACEPT ORAL SCH ×2 (09:00→17:10)
[2016-12-04 12:00] VITALS: BP 127/30
[2016-12-04 16:01] VITALS: BP 115/34
--- NOTE | 2016-12-04 16:41 | Internal Med Progress Note ---
Subjective Date of Service: Dec 04, 2016 Physician Name Didier Thornton Attending Physician Didier Thornton Current Medications Medications (Trade) Dose Ordered Sig/Zohaib Route PRN Reason Start Time Stop Time Status Last Admin Dose Admin Amlodipine Besylate (Norvasc) 5 mg DAILY ORAL 12/01/16 09:00 12/31/16 08:59 12/04/16 08:15 Cefepime HCl 0.5 gm/Dextrose 55 ml @ 110 mls/hr Q24H IVPB 12/01/16 01:00 12/08/16 00:59 12/03/16 23:56 Chlorhexidine Gluconate (Ebony-Hex 2%) 1 applic QHS TOPIC 12/01/16 21:00 12/31/16 20:59 12/03/16 20:47 Cinacalcet (Sensipar) 30 mg DAILY ORAL 12/01/16 09:00 12/31/16 08:59 12/04/16 08:12 Clopidogrel Bisulfate (Plavix) 75 mg DAILY ORAL 12/01/16 09:00 12/31/16 08:59 12/04/16 08:19 Emtricitabine (Emtriva) 200 mg WeSa@1800 ORAL 12/01/16 18:00 12/31/16 17:59 12/01/16 17:14 Fluconazole (Diflucan) 200 mg DAILY ORAL 12/01/16 09:00 12/08/16 08:59 12/04/16 08:12 Hydromorphone HCl (Dilaudid) 0.5 mg Q4H PRN IVP For Pain 7-10 12/01/16 00:15 12/08/16 00:14 12/04/16 16:02 Metronidazole (Flagyl) 500 mg Q8HR ORAL 12/01/16 06:00 12/08/16 05:59 12/04/16 14:09 Nateglinide (Starlix) 120 mg TIAC ORAL 12/01/16 06:30 12/31/16 06:29 12/04/16 15:56 Oxycodone HCl (Roxicodone) 5 mg Q4H PRN ORAL PAIN 4-6 12/01/16 00:15 12/08/16 00:14 12/04/16 15:55 Patient Own Medication (Patient's Own Med) 2 ea BID ORAL 12/01/16 09:00 9/4/17 08:59 12/03/16 08:44 Sevelamer Carbonate (Renvela) 1,600 mg TID ORAL 12/01/16 09:00 12/31/16 08:59 12/04/16 11:32 Sevelamer Carbonate (Renvela) 2,400 mg THREE TIMES A DAY ORAL 12/01/16 09:00 12/31/16 08:59 12/04/16 11:32 Sodium Chloride (Sodium Chloride 1000ml bag) 1,000 ml @ 500 mls/hr Q2H PRN IVLG sbp<90 during hd 12/01/16 06:00 12/31/16 05:59 Tenofovir Disoproxil Fumarate (Viread) 300 mg Sa@1800 ORAL 12/01/16 18:00 12/31/16 17:59 12/01/16 17:14 Vancomycin HCl (Vanco rx to dose) 1 ea DAILY PRN MISC Per rx protocol 12/01/16 09:00 12/31/16 08:59 Allergies: Coded Allergies: HEPARIN (Verified Allergy, Severe, low platelets, 06/11/14) SULFA (SULFONAMIDE ANTIBIOTICS) (Verified Allergy, Severe, nephro toxic, ) ZOLPIDEM (Verified Allergy, Unknown, 05/03/16) MEROPENEM (Verified Adverse Reaction, Intermediate, 04/01/16) Nausea and vomiting Uncoded Allergies: pork products (Allergy, Severe, rashes, 06/11/14) ROS Limited/Unobtainable: No Constitutional: Reports: no symptoms HEENT: Reports: no symptoms Cardiovascular: Reports: no symptoms Respiratory: Reports: no symptoms Gastrointestinal/Abdominal: Reports: no symptoms Genitourinary: Reports: no symptoms Neurologic/Psychiatric: Reports: no symptoms Subjective 61 YO M admitted with shortness of breath, hypoglycemia and right diabetic foot ulcer. Now gangrene right foot with osteomyelitis. Await transfer to [facility] for angiogram of right leg-see case management note. Objective Last Vital Signs Date Time Temp Pulse Resp B/P Pulse Ox O2 Delivery O2 Flow Rate FiO2 12/04/16 16:01 98.2 77 18 115/34 100 Nasal Cannula 2.0 12/04/16 07:50 21 Laboratory Tests Test 12/04/16 05:10 White Blood Count 7.3 K/UL (4.8-10.8) Red Blood Count 4.43 M/UL (4.70-6.10) L Hemoglobin 11.6 G/DL (14.2-18.0) L Hematocrit 37.4 % (42.0-52.0) L Mean Corpuscular Volume 84 FL (80-99) Mean Corpuscular Hemoglobin 26.2 PG (27.0-31.0) L Mean Corpuscular Hemoglobin Concent 31.0 G/DL (32.0-36.0) L Red Cell Distribution Width 20.2 % (11.6-14.8) H Platelet Count 267 K/UL (150-450) Mean Platelet Volume 7.1 FL (6.5-10.1) Neutrophils (%) (Auto) 59.9 % (45.0-75.0) Lymphocytes (%) (Auto) 24.0 % (20.0-45.0) Monocytes (%) (Auto) 11.7 % (1.0-10.0) H Eosinophils (%) (Auto) 3.3 % (0.0-3.0) H Basophils (%) (Auto) 1.2 % (0.0-2.0) Sodium Level 129 mEQ/L (135-145) L Potassium Level 4.9 mEQ/L (3.4-4.9) Chloride Level 92 mEQ/L (98-107) L Carbon Dioxide Level 22 mEQ/L (20-30) Anion Gap 15 (5-15) Blood Urea Nitrogen 73 mg/dL (7-23) H Creatinine 7.3 mg/dL (0.7-1.2) H Estimat Glomerular Filtration Rate 9.2 mL/min (>60) Glucose Level 113 mg/dL (74-106) H Calcium Level 9.2 mg/dL (8.6-10.2) Intake and Output 12/03/16 12/04/16 19:00 07:00 Intake Total 720 ml 580 ml Balance 720 ml 580 ml Intake Oral 720 ml 580 ml # Bowel Movements 1 Objective General Appearance: WD/WN, no apparent distress, alert EENT: PERRL/EOMI, normal ENT inspection, TMs normal Neck: non-tender, normal alignment, supple Cardiovascular: normal peripheral pulses, sinus bradycardia, regular rhythm, no gallop/murmur, no JVD Respiratory/Chest: chest wall non-tender, lungs clear, normal breath sounds, no respiratory distress, no accessory muscle use Abdomen: normal bowel sounds, non tender, soft, no organomegaly, no mass Extremities: right foot dressing clean and dry; normal range of motion 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 See podiatry consult note. cont vanco, cefepime and flagyl per ID (6) HIV disease Assessment & Plan: Continue HAART per ID (7) HTN (hypertension) Assessment & Plan: Continue metoprolol (8) Diabetes Assessment & Plan: Hypoglycemic on arrival. (9) ESRD (end stage renal disease) Assessment & Plan: Last Hemodialysis 12/01/16. See nephrology note-Dr Medina (10) Bradycardia Assessment & Plan: See cardiology consult. D/C metoprolol and clonidine. (11) Osteomyelitis of ankle or foot, right, acute Assessment & Plan: See podiatry note. (12) Gangrene of right foot Assessment & Plan: Needs revascularization prior to surgery. See vasc surg note. (13) Right atrial mass Assessment & Plan: See cardiology note. 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 Awaiot transfer to [facility]. See vascular surgery note. (16) Hyperkalemia Assessment & Plan: Last Hemodialysis 12/01/16 -see nephrology note. Assessment/Plan Transfer to [facility] [place]-see case management note. Discussed with podiatry and ID DIDIER THORNTON Dec 04, 2016 16:41
--- NOTE | 2016-12-04 17:15 | Cardiac Electrophysiology PN ---
Assessment/Plan Status Narrative MIAN: Side lobe artifact refuting right atrial mass, the mass seen in the right atrial cavity with MIAN is image artifact of amplatzer device implanted for PFO closure. Eccentric regurgitant of mitral valve through prolapsed posterior leaflet consistent with severe MR Perforated vs cleft non-coronary cusp of the aortic valve leading to eccentric aortic regurgitation consistent with severe AR. Negative bubble study. Assessment/Plan 1. Bradycardia with sinus arrest and junctional rhythm. Ruled out myocardial infarction. Resolved.Keep off JACKSON or AVN blockers 2. Hypertension, on Norvasc 5 mg daily. 3. PAF, S/P ablation at [facility] in 2011.Off AAs in view of tom episodes.No recurrence in SR 4. Larger right atrial echogenic material/mass. MIAN 11/24/16 showed no intracardiac thrombus. 5. Severe AI and MR. ? Double valve surgery as out patient. 6. Peripheral vascular disease, status post metatarsal amputation, on antibiotic for right foot gangrene. Needs revascularization prior to surgery. See vasc surg note. 7. HIV 8. Hepatitis C. 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 10. Viability study 10/31/16 showed 10% nonviable myocardium. 11. End-stage renal disease, on hemodialysis. Awaiting transfer for leg angio by Dr Dang to [facility]. Subjective Subjective Comfortable in NAD. No HD today. and RN at bedside.Awaiting transfer to [facility] for angiogram Objective Last 24 Hour Vital Signs Date Time Temp Pulse Resp B/P Pulse Ox O2 Delivery O2 Flow Rate FiO2 12/04/16 16:01 98.2 77 18 115/34 100 Nasal Cannula 2.0 12/04/16 12:00 98.1 84 18 127/30 100 Room Air 12/04/16 08:15 84 128/35 12/04/16 08:06 98.1 82 18 126/33 100 Nasal Cannula 2.0 12/04/16 07:56 Room Air 12/04/16 07:50 100 Room Air 21 12/04/16 06:17 98.2 12/04/16 04:00 98.2 83 18 130/39 99 Room Air 12/03/16 23:44 97.9 88 18 121/48 100 Room Air 12/03/16 20:14 100 Nasal Cannula 3.0 32 12/03/16 20:14 Nasal Cannula 3.0 32 12/03/16 20:00 97.9 96 18 115/48 100 Room Air 12/03/16 19:57 Room Air Intake and Output 12/03/16 12/04/16 19:00 07:00 Intake Total 720 ml 580 ml Balance 720 ml 580 ml Intake Oral 720 ml 580 ml # Bowel Movements 1 Laboratory Tests Test 12/04/16 05:10 White Blood Count 7.3 K/UL (4.8-10.8) Red Blood Count 4.43 M/UL (4.70-6.10) L Hemoglobin 11.6 G/DL (14.2-18.0) L Hematocrit 37.4 % (42.0-52.0) L Mean Corpuscular Volume 84 FL (80-99) Mean Corpuscular Hemoglobin 26.2 PG (27.0-31.0) L Mean Corpuscular Hemoglobin Concent 31.0 G/DL (32.0-36.0) L Red Cell Distribution Width 20.2 % (11.6-14.8) H Platelet Count 267 K/UL (150-450) Mean Platelet Volume 7.1 FL (6.5-10.1) Neutrophils (%) (Auto) 59.9 % (45.0-75.0) Lymphocytes (%) (Auto) 24.0 % (20.0-45.0) Monocytes (%) (Auto) 11.7 % (1.0-10.0) H Eosinophils (%) (Auto) 3.3 % (0.0-3.0) H Basophils (%) (Auto) 1.2 % (0.0-2.0) Sodium Level 129 mEQ/L (135-145) L Potassium Level 4.9 mEQ/L (3.4-4.9) Chloride Level 92 mEQ/L (98-107) L Carbon Dioxide Level 22 mEQ/L (20-30) Anion Gap 15 (5-15) Blood Urea Nitrogen 73 mg/dL (7-23) H Creatinine 7.3 mg/dL (0.7-1.2) H Estimat Glomerular Filtration Rate 9.2 mL/min (>60) Glucose Level 113 mg/dL (74-106) H Calcium Level 9.2 mg/dL (8.6-10.2) Objective HEAD AND NECK: No JVD. LUNGS: Decreased breath sounds.Dialysis Via left subclavian PermCath. CARDIOVASCULAR: Shows regular S1 and S2. ABDOMEN: Soft. EXTREMITIES: No pitting edema. Right foot ulcer and left metatarsal amputation. CLIFTON KEARNEY Dec 04, 2016 17:15
--- NOTE | 2016-12-04 18:23 | Nephrology Progress Note ---
Assessment/Plan Problem List: (1) Osteomyelitis (2) ESRD (end stage renal disease) (3) HTN (hypertension) (4) Hepatitis C (5) Hypoglycemia (6) Vascular disease (7) Valvular cardiomyopathy (8) Bnxuu-Hmzyd-Jigfj syndrome (9) Bradycardia (10) Hyperkalemia Plan Dialysis 12/03 via cath, , He -may have recirculation from catheter. Patient and refuse to use av fistula yet. . No fluid overload. s/p bradycardia episode, bp nl, cardiology eval reviewed, MIAN reviewed. With OWR high risk of hemorrhage if anticoagulated-- Subjective Constitutional: Reports: weakness HEENT: Reports: no symptoms Genitourinary: Reports: no symptoms Neurologic/Psychiatric: Reports: no symptoms Subjective foot pain Objective Objective Last 24 Hour Vital Signs Date Time Temp Pulse Resp B/P Pulse Ox O2 Delivery O2 Flow Rate FiO2 12/04/16 16:01 98.2 77 18 115/34 100 Nasal Cannula 2.0 12/04/16 12:00 98.1 84 18 127/30 100 Room Air 12/04/16 08:15 84 128/35 12/04/16 08:06 98.1 82 18 126/33 100 Nasal Cannula 2.0 12/04/16 07:56 Room Air 12/04/16 07:50 100 Room Air 21 12/04/16 06:17 98.2 12/04/16 04:00 98.2 83 18 130/39 99 Room Air 12/03/16 23:44 97.9 88 18 121/48 100 Room Air 12/03/16 20:14 100 Nasal Cannula 3.0 32 12/03/16 20:14 Nasal Cannula 3.0 32 12/03/16 20:00 97.9 96 18 115/48 100 Room Air 12/03/16 19:57 Room Air Intake and Output 12/03/16 12/04/16 19:00 07:00 Intake Total 720 ml 580 ml Balance 720 ml 580 ml Intake Oral 720 ml 580 ml # Bowel Movements 1 Laboratory Tests 12/04/16 05:10: White Blood Count 7.3, Red Blood Count 4.43L, Hemoglobin 11.6L, Hematocrit 37.4L , Mean Corpuscular Volume 84, Mean Corpuscular Hemoglobin 26.2L, Mean Corpuscular Hemoglobin Concent 31.0L, Red Cell Distribution Width 20.2H, Platelet Count 267, Mean Platelet Volume 7.1, Neutrophils (%) (Auto) 59.9, Lymphocytes (%) (Auto) 24.0, Monocytes (%) (Auto) 11.7H, Eosinophils (%) (Auto) 3.3H, Basophils (%) (Auto) 1.2, Sodium Level 129L, Potassium Level 4.9, Chloride Level 92L, Carbon Dioxide Level 22, Anion Gap 15, Blood Urea Nitrogen 73H, Creatinine 7.3H, Estimat Glomerular Filtration Rate 9.2, Glucose Level 113H , Calcium Level 9.2 Height (Feet): 6 Height (Inches): 6.00 Weight (Pounds): 177 General Appearance: no apparent distress EENT: normal ENT inspection Neck: normal alignment Cardiovascular: normal rate Respiratory/Chest: lungs clear, normal breath sounds Abdomen: non tender, soft Extremities: non-tender 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
[2016-12-04 20:00] VITALS: BP 116/26
[2016-12-04] MEDS: Dyna-Hex 2% Top Sol 8oz TOPIC SCH (22:03)
[2016-12-05] VITALS: BP 103/33
[2016-12-05] MEDS: Cefepime HCl 0.5 GM in D5W 55 ML IVPB SCH (01:11)
[2016-12-05 04:00] VITALS: BP 119/30
[2016-12-05] MEDS: Hydromorphone 0.5mg/0.5ml inj IVP PRN ×4 (04:07→20:19)
[2016-12-05] MEDS: oxyCODONE 5mg IR tab ORAL PRN ×2 (06:08→12:35)
[2016-12-05] MEDS: metroNIDAZOLE 500mg tab ORAL SCH ×3 (06:08→22:26)
[2016-12-05 08:12] VITALS: BP 135/30
[2016-12-05] MEDS: Renvela 800mg Pkt ORAL SCH ×3 (09:58→17:44)
[2016-12-05] MEDS: Renvela 2400 mg pkt ORAL SCH ×3 (09:58→17:44)
[2016-12-05] MEDS: VIRACEPT ORAL SCH ×2 (09:59→17:50)
[2016-12-05] MEDS: Fluconazole 100mg tab ORAL SCH (09:59)
[2016-12-05] MEDS: Sensipar 30mg Tab ORAL SCH (09:59)
--- NOTE | 2016-12-05 11:29 | Internal Med Progress Note ---
Subjective Date of Service: Dec 05, 2016 Physician Name Didier Jimenez Attending Physician Didier Jimenez Current Medications Medications (Trade) Dose Ordered Sig/Zohaib Route PRN Reason Start Time Stop Time Status Last Admin Dose Admin Amlodipine Besylate (Norvasc) 5 mg DAILY ORAL 12/01/16 09:00 12/31/16 08:59 12/04/16 08:15 Cefepime HCl 0.5 gm/Dextrose 55 ml @ 110 mls/hr Q24H IVPB 12/01/16 01:00 12/08/16 00:59 12/05/16 01:11 Chlorhexidine Gluconate (Ebony-Hex 2%) 1 applic QHS TOPIC 12/01/16 21:00 12/31/16 20:59 12/04/16 22:03 Cinacalcet (Sensipar) 30 mg DAILY ORAL 12/01/16 09:00 12/31/16 08:59 12/05/16 09:59 Clopidogrel Bisulfate (Plavix) 75 mg DAILY ORAL 12/01/16 09:00 12/31/16 08:59 12/05/16 09:59 Emtricitabine (Emtriva) 200 mg WeSa@1800 ORAL 12/01/16 18:00 12/31/16 17:59 12/01/16 17:14 Fluconazole (Diflucan) 200 mg DAILY ORAL 12/01/16 09:00 12/08/16 08:59 12/05/16 09:59 Hydromorphone HCl (Dilaudid) 0.5 mg Q4H PRN IVP For Pain 7-10 12/01/16 00:15 12/08/16 00:14 12/05/16 10:04 Metronidazole (Flagyl) 500 mg Q8HR ORAL 12/01/16 06:00 12/08/16 05:59 12/05/16 06:08 Nateglinide (Starlix) 120 mg TIAC ORAL 12/01/16 06:30 12/31/16 06:29 12/05/16 07:08 Oxycodone HCl (Roxicodone) 5 mg Q4H PRN ORAL PAIN 4-6 12/01/16 00:15 12/08/16 00:14 12/05/16 06:08 Patient Own Medication (Patient's Own Med) 2 ea BID ORAL 12/01/16 09:00 9/4/17 08:59 12/05/16 09:59 Sevelamer Carbonate (Renvela) 1,600 mg TID ORAL 12/01/16 09:00 12/31/16 08:59 12/05/16 09:58 Sevelamer Carbonate (Renvela) 2,400 mg THREE TIMES A DAY ORAL 12/01/16 09:00 12/31/16 08:59 12/05/16 09:58 Sodium Chloride (Sodium Chloride 1000ml bag) 1,000 ml @ 500 mls/hr Q2H PRN IVLG sbp<90 during hd 12/01/16 06:00 12/31/16 05:59 Tenofovir Disoproxil Fumarate (Viread) 300 mg Sa@1800 ORAL 12/01/16 18:00 12/31/16 17:59 12/01/16 17:14 Vancomycin HCl (Vanco rx to dose) 1 ea DAILY PRN MISC Per rx protocol 12/01/16 09:00 12/31/16 08:59 Allergies: Coded Allergies: HEPARIN (Verified Allergy, Severe, low platelets, 06/11/14) SULFA (SULFONAMIDE ANTIBIOTICS) (Verified Allergy, Severe, nephro toxic, ) ZOLPIDEM (Verified Allergy, Unknown, 05/03/16) MEROPENEM (Verified Adverse Reaction, Intermediate, 04/01/16) Nausea and vomiting Uncoded Allergies: pork products (Allergy, Severe, rashes, 06/11/14) ROS Limited/Unobtainable: No Constitutional: Reports: no symptoms HEENT: Reports: no symptoms Cardiovascular: Reports: no symptoms Respiratory: Reports: no symptoms Gastrointestinal/Abdominal: Reports: no symptoms Genitourinary: Reports: no symptoms Neurologic/Psychiatric: Reports: no symptoms Subjective 61 YO M admitted with shortness of breath, hypoglycemia and right diabetic foot ulcer. Now gangrene right foot with osteomyelitis. Await transfer to [facility] for angiogram of right leg-see case management note. Objective Last Vital Signs Date Time Temp Pulse Resp B/P Pulse Ox O2 Delivery O2 Flow Rate FiO2 12/05/16 09:00 81 135/30 12/05/16 08:12 97.5 18 100 Room Air 12/05/16 07:42 3.0 32 Intake and Output 12/04/16 12/05/16 19:00 07:00 Intake Total 600 ml 295 ml Balance 600 ml 295 ml Intake Oral 600 ml 240 ml IV Total 55 ml # Bowel Movements 1 Objective General Appearance: WD/WN, no apparent distress, alert EENT: PERRL/EOMI, normal ENT inspection, TMs normal Neck: non-tender, normal alignment, supple Cardiovascular: normal peripheral pulses, sinus bradycardia, regular rhythm, no gallop/murmur, no JVD Respiratory/Chest: chest wall non-tender, lungs clear, normal breath sounds, no respiratory distress, no accessory muscle use Abdomen: normal bowel sounds, non tender, soft, no organomegaly, no mass Extremities: right foot dressing clean and dry; normal range of motion 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 See podiatry consult note. cont vanco, cefepime and flagyl per ID (6) HIV disease Assessment & Plan: Continue HAART per ID (7) HTN (hypertension) Assessment & Plan: Continue metoprolol (8) Diabetes Assessment & Plan: Hypoglycemic on arrival. (9) ESRD (end stage renal disease) Assessment & Plan: Last Hemodialysis 12/03/16. See nephrology note-Dr Bianchi (10) Bradycardia Assessment & Plan: See cardiology consult. D/C metoprolol and clonidine. (11) Osteomyelitis of ankle or foot, right, acute Assessment & Plan: See podiatry note. (12) Gangrene of right foot Assessment & Plan: Needs revascularization prior to surgery. See vasc surg note. (13) Right atrial mass Assessment & Plan: See cardiology note. S/P Transesophageal echo 11/23/16 (14) Injnq-Adcix-Jnazu syndrome (15) Peripheral vascular disease Assessment & Plan: Needs angiogram right leg. Awaiot transfer to [facility]. See vascular surgery note. (16) Hyperkalemia Assessment & Plan: Last Hemodialysis 12/01/16 -see nephrology note. Assessment/Plan Transfer to [facility]-see case management note. Discussed with podiatry and ID DIDIER JIMENEZ Dec 05, 2016 11:28
[2016-12-05 12:22] VITALS: BP 131/39
[2016-12-05 13:29] LABS: BASOPHILS % (AUTO) 1.1 % (0.0-2.0); EOSINOPHILS % (AUTO) 3.3 % (0.0-3.0); LYMPHOCYTES % (AUTO) 25.8 % (20.0-45.0); MEAN CORPUSCULAR HEMOGLOBIN 25.4 PG (27.0-31.0); MEAN CORPUSCULAR HGB CONC 30.3 G/DL (32.0-36.0); MEAN CORPUSCULAR VOLUME 84 FL (80-99); MEAN PLATELET VOLUME 6.7 FL (6.5-10.1); MONOCYTES % (AUTO) 15.6 % (1.0-10.0); NEUTROPHILS % (AUTO) 54.3 % (45.0-75.0); PLATELET COUNT 279 K/UL (150-450); RED CELL DISTRIBUTION WIDTH 19.6 % (11.6-14.8); WHITE BLOOD COUNT 6.8 K/UL (4.8-10.8)
[2016-12-05 13:39] LABS: CALCIUM 8.4 mg/dL (8.6-10.2); CREATININE 10.1 mg/dL (0.7-1.2); GLOMERULAR FILTRATION RATE 6.4 mL/min (>60); POTASSIUM 5.2 mEQ/L (3.4-4.9)
--- NOTE | 2016-12-05 14:44 | Nephrology Progress Note ---
Assessment/Plan Problem List: (1) Osteomyelitis (2) ESRD (end stage renal disease) (3) HTN (hypertension) (4) Hepatitis C (5) Hypoglycemia (6) Vascular disease (7) Valvular cardiomyopathy (8) Oyxvd-Zcgiw-Zzsew syndrome (9) Bradycardia (10) Hyperkalemia Plan Dialysis 12/05 via cath, , He -may have recirculation from catheter. Patient and refuse to use av fistula yet. . No fluid overload. s/p bradycardia episode, bp nl, cardiology eval reviewed, MIAN reviewed. With OWR high risk of hemorrhage if anticoagulated-- Subjective Constitutional: Reports: weakness HEENT: Reports: no symptoms Genitourinary: Reports: no symptoms Neurologic/Psychiatric: Reports: no symptoms Subjective foot pain Objective Objective Last 24 Hour Vital Signs Date Time Temp Pulse Resp B/P Pulse Ox O2 Delivery O2 Flow Rate FiO2 12/05/16 12:29 Room Air 12/05/16 12:22 97.5 87 18 131/39 99 Room Air 12/05/16 09:00 81 135/30 12/05/16 08:12 97.5 81 18 135/30 100 Room Air 12/05/16 07:42 100 Nasal Cannula 3.0 32 12/05/16 07:42 Nasal Cannula 3.0 32 12/05/16 04:37 97.8 12/05/16 04:00 97.8 87 21 119/30 100 Room Air 12/05/16 00:00 97.8 78 20 103/33 100 Nasal Cannula 12/04/16 21:00 Room Air 12/04/16 20:00 97.9 76 21 116/26 100 Room Air 12/04/16 19:00 100 Nasal Cannula 3.0 32 12/04/16 16:01 98.2 77 18 115/34 100 Nasal Cannula 2.0 Intake and Output 12/04/16 12/05/16 19:00 07:00 Intake Total 600 ml 295 ml Balance 600 ml 295 ml Intake Oral 600 ml 240 ml IV Total 55 ml # Bowel Movements 1 Laboratory Tests 12/05/16 12:40: White Blood Count 6.8, Red Blood Count 4.10L, Hemoglobin 10.4L, Hematocrit 34.5L , Mean Corpuscular Volume 84, Mean Corpuscular Hemoglobin 25.4L, Mean Corpuscular Hemoglobin Concent 30.3L, Red Cell Distribution Width 19.6H, Platelet Count 279, Mean Platelet Volume 6.7, Neutrophils (%) (Auto) 54.3, Lymphocytes (%) (Auto) 25.8, Monocytes (%) (Auto) 15.6H, Eosinophils (%) (Auto) 3.3H, Basophils (%) (Auto) 1.1, Sodium Level 128L, Potassium Level 5.2H, Chloride Level 89L, Carbon Dioxide Level 19L, Anion Gap 20H, Blood Urea Nitrogen 113#H, Creatinine 10.1H, Estimat Glomerular Filtration Rate 6.4, Glucose Level 199H, Calcium Level 8.4L Height (Feet): 6 Height (Inches): 6.00 Weight (Pounds): 177 General Appearance: no apparent distress, alert EENT: normal ENT inspection Neck: normal alignment Cardiovascular: normal rate Respiratory/Chest: lungs clear Abdomen: non tender Extremities: other - ischemia feet 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
[2016-12-05 16:00] VITALS: BP 128/22
--- NOTE | 2016-12-05 16:00 | Cardiac Electrophysiology PN ---
Assessment/Plan Status Narrative MIAN: Side lobe artifact refuting right atrial mass, the mass seen in the right atrial cavity with MIAN is image artifact of amplatzer device implanted for PFO closure. Eccentric regurgitant of mitral valve through prolapsed posterior leaflet consistent with severe MR Perforated vs cleft non-coronary cusp of the aortic valve leading to eccentric aortic regurgitation consistent with severe AR. Negative bubble study. Assessment/Plan 1. Bradycardia and sinus arrest, junctional rhythm. Ruled out myocardial infarction. Resolved. Off JACKSON or AVN blockers 2. Hypertension, on Norvasc 5 mg daily. 3. PAF, S/P ablation at [facility] in 2012.Off AAs in view of tom episodes.No recurrence in SR 4. Larger right atrial echogenic material/mass. MIAN 11/24/16 showed no intracardiac thrombus. 5. Severe AI and MR. ? Double valve surgery as out patient. 6. Peripheral vascular disease, status post metatarsal amputation, on antibiotic for right foot gangrene. Needs revascularization prior to surgery. See vasc surg note. 7. HIV 8. Hepatitis C. 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 10. Viability study 10/31/16 showed 10% nonviable myocardium. 11. End-stage renal disease, on hemodialysis. Subjective Subjective Comfortable in NAD. Awaiting transfer to [facility] for angiogram Objective Last 24 Hour Vital Signs Date Time Temp Pulse Resp B/P Pulse Ox O2 Delivery O2 Flow Rate FiO2 12/05/16 12:29 Room Air 12/05/16 12:22 97.5 87 18 131/39 99 Room Air 12/05/16 09:00 81 135/30 12/05/16 08:12 97.5 81 18 135/30 100 Room Air 12/05/16 07:42 100 Nasal Cannula 3.0 32 12/05/16 07:42 Nasal Cannula 3.0 32 12/05/16 04:37 97.8 12/05/16 04:00 97.8 87 21 119/30 100 Room Air 12/05/16 00:00 97.8 78 20 103/33 100 Nasal Cannula 12/04/16 21:00 Room Air 12/04/16 20:00 97.9 76 21 116/26 100 Room Air 12/04/16 19:00 100 Nasal Cannula 3.0 32 12/04/16 16:01 98.2 77 18 115/34 100 Nasal Cannula 2.0 Intake and Output 12/04/16 12/05/16 18:59 06:59 Intake Total 600 ml 295 ml Balance 600 ml 295 ml Intake Oral 600 ml 240 ml IV Total 55 ml # Bowel Movements 1 Laboratory Tests Test 12/05/16 12:40 White Blood Count 6.8 K/UL (4.8-10.8) Red Blood Count 4.10 M/UL (4.70-6.10) L Hemoglobin 10.4 G/DL (14.2-18.0) L Hematocrit 34.5 % (42.0-52.0) L Mean Corpuscular Volume 84 FL (80-99) Mean Corpuscular Hemoglobin 25.4 PG (27.0-31.0) L Mean Corpuscular Hemoglobin Concent 30.3 G/DL (32.0-36.0) L Red Cell Distribution Width 19.6 % (11.6-14.8) H Platelet Count 279 K/UL (150-450) Mean Platelet Volume 6.7 FL (6.5-10.1) Neutrophils (%) (Auto) 54.3 % (45.0-75.0) Lymphocytes (%) (Auto) 25.8 % (20.0-45.0) Monocytes (%) (Auto) 15.6 % (1.0-10.0) H Eosinophils (%) (Auto) 3.3 % (0.0-3.0) H Basophils (%) (Auto) 1.1 % (0.0-2.0) Sodium Level 128 mEQ/L (135-145) L Potassium Level 5.2 mEQ/L (3.4-4.9) H Chloride Level 89 mEQ/L (98-107) L Carbon Dioxide Level 19 mEQ/L (20-30) L Anion Gap 20 (5-15) H Blood Urea Nitrogen 113 mg/dL (7-23) #H Creatinine 10.1 mg/dL (0.7-1.2) H Estimat Glomerular Filtration Rate 6.4 mL/min (>60) Glucose Level 199 mg/dL (74-106) H Calcium Level 8.4 mg/dL (8.6-10.2) L Objective HEAD AND NECK: No JVD. LUNGS: Clear. Dialysis Via left subclavian PermCath. CARDIOVASCULAR: Shows regular S1 and S2. ABDOMEN: Soft. EXTREMITIES: No pitting edema. Right foot ulcer and left metatarsal amputation. CLIFTON KEARNEY Dec 05, 2016 16:00
[2016-12-05] MEDS: Emtricitabine 200mg tab ORAL SCH (17:50)
--- NOTE | 2016-12-05 18:50 | Infectious Diseases Prog Note ---
Assessment/Plan Assessment/Plan ASSESSMENT AND PLAN: 1. right foot and heel infected wounds and necrosis/ischemia/gangrene - wound culture with yeast, likely polymicrobial - MRI c/o osteo right ankle and possible right foot - wound culture with nicole, likely polymicrobial infection - podiatry and vascular surgery f/u noted - significant problem with foot is ischemic - continue vancomycin, cefepime, flagy and diflucan - patient will need continued abx for osteo and until surgical intervention - patient may be transferred for surgical intervention regarding right foot ischemia - iv abx have been ordered/arranged and oral scripts written for the next two weeks until further w/u/surgery, if needed - weekly labs have been ordered also, d/w RN. Patient to f/u with me in two weeks, d/w RN. - wound care per protocol - MIAN without vegetation or thrombus 2. patient getting treated for right heel/foot osteo as outpatient with vancomycin and zosyn based on most recent wound culture in my office 3. End-stage renal disease, on hemodialysis. 4. Hypertension and diabetes, hep c + 5. Human immunodeficiency virus. Continue antiretroviral treatment at this time from home, cd4 ordered. Pt f/u with Dr. Chinchilla for HIV care. 6. Blood sugar and blood pressure control for diabetes and hypertension, per primary. 7. Anemia. 8. Hemodialysis per Renal. 9. Transient ischemic attack. 10. Congestive heart failure. 11. History of osteomyelitis of left foot. 12. Hepatis C. 13. History of seizure. 14. Weakness. 15. Past medical history noted. 16. Allergies to Heparin, meropenem, sulfa, and Zolpidem. 17. MAR was noted. 18. Case was discussed with RN. 19. Social history is negative. 20. Family history is noncontributory. 21. Case discussed with Dr. Thornton. 22. Continue treatment per primary consultants. 23. Wound care protocol. 24. Podiatry followup. 25. Continue Vascular Surgery evaluation. 26. Hypoglycemia treatment per primary. Subjective Constitutional: Denies: fever HEENT: Denies: congestion Respiratory: Denies: shortness of breath Cardiovascular: Denies: chest pain Gastrointestinal/Abdominal: Denies: diarrhea, nausea, vomiting Genitourinary: Reports: other - no agarwal Neurologic: Denies: headache Psychiatric: Denies: depression Skin: Denies: rash Musculoskeletal: Denies: pain Allergies: Coded Allergies: HEPARIN (Verified Allergy, Severe, low platelets, 06/11/14) SULFA (SULFONAMIDE ANTIBIOTICS) (Verified Allergy, Severe, nephro toxic, ) ZOLPIDEM (Verified Allergy, Unknown, 05/03/16) MEROPENEM (Verified Adverse Reaction, Intermediate, 04/01/16) Nausea and vomiting Uncoded Allergies: pork products (Allergy, Severe, rashes, 06/11/14) Objective Vital Signs Last 24 Hour Vital Signs Date Time Temp Pulse Resp B/P Pulse Ox O2 Delivery O2 Flow Rate FiO2 12/05/16 16:00 89 18 128/22 99 12/05/16 12:29 Room Air 12/05/16 12:22 97.5 87 18 131/39 99 Room Air 12/05/16 09:00 81 135/30 12/05/16 08:12 97.5 81 18 135/30 100 Room Air 12/05/16 07:42 100 Nasal Cannula 3.0 32 12/05/16 07:42 Nasal Cannula 3.0 32 12/05/16 04:37 97.8 12/05/16 04:00 97.8 87 21 119/30 100 Room Air 12/05/16 00:00 97.8 78 20 103/33 100 Nasal Cannula 12/04/16 21:00 Room Air 12/04/16 20:00 97.9 76 21 116/26 100 Room Air 12/04/16 19:00 100 Nasal Cannula 3.0 32 Height (Feet): 6 Height (Inches): 6.00 Weight (Pounds): 177 General Appearance: no acute distress HEENT: normocephalic, atraumatic, anicteric, mucous membranes moist, PERRL, supple, no JVD Respiratory/Chest: lungs clear, normal breath sounds, no respiratory distress, no accessory muscle use Cardiovascular: normal rate, regular rhythm, no gallop/murmur, no JVD Abdomen: normal bowel sounds, soft, non tender, no organomegaly, non distended Genitourinary: other - no agarwal Extremities: other - no change in right foot ischemic changes 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 Impression: Nonspecific, very small foci of abnormal signal at the dorsal heads of the first and fourth proximal phalanges. If there is evidence of active infection with ulcers in these 2 locations, osteomyelitis should be considered. Please correlate clinically. MIAN - no thrombus or vegetation per cardiology notes Microbiology Date/Time Source Procedure Growth Status 11/11/16 16:05 Blood Blood Culture - Final NO GROWTH AFTER 5 DAYS Complete 11/29/16 14:30 Nasal Nares MRSA Culture - Final NO METHICILLIN RESISTANT STAPH AUREUS... Complete 11/13/16 02:00 Foot Right Gram Stain - Final Complete 11/13/16 02:00 Aerobic Culture - Final Nicole Parapsilosis Complete 11/13/16 02:00 Foot Right Anaerobic Culture - Final NO ANAEROBES ISOLATED Complete Laboratory Tests Test 12/05/16 12:40 White Blood Count 6.8 K/UL (4.8-10.8) Red Blood Count 4.10 M/UL (4.70-6.10) L Hemoglobin 10.4 G/DL (14.2-18.0) L Hematocrit 34.5 % (42.0-52.0) L Mean Corpuscular Volume 84 FL (80-99) Mean Corpuscular Hemoglobin 25.4 PG (27.0-31.0) L Mean Corpuscular Hemoglobin Concent 30.3 G/DL (32.0-36.0) L Red Cell Distribution Width 19.6 % (11.6-14.8) H Platelet Count 279 K/UL (150-450) Mean Platelet Volume 6.7 FL (6.5-10.1) Neutrophils (%) (Auto) 54.3 % (45.0-75.0) Lymphocytes (%) (Auto) 25.8 % (20.0-45.0) Monocytes (%) (Auto) 15.6 % (1.0-10.0) H Eosinophils (%) (Auto) 3.3 % (0.0-3.0) H Basophils (%) (Auto) 1.1 % (0.0-2.0) Sodium Level 128 mEQ/L (135-145) L Potassium Level 5.2 mEQ/L (3.4-4.9) H Chloride Level 89 mEQ/L (98-107) L Carbon Dioxide Level 19 mEQ/L (20-30) L Anion Gap 20 (5-15) H Blood Urea Nitrogen 113 mg/dL (7-23) #H Creatinine 10.1 mg/dL (0.7-1.2) H Estimat Glomerular Filtration Rate 6.4 mL/min (>60) Glucose Level 199 mg/dL (74-106) H Calcium Level 8.4 mg/dL (8.6-10.2) L Current Medications Medications (Trade) Dose Ordered Sig/Zohaib Route PRN Reason Start Time Stop Time Status Last Admin Dose Admin Amlodipine Besylate (Norvasc) 5 mg DAILY ORAL 12/01/16 09:00 12/31/16 08:59 12/04/16 08:15 Cefepime HCl 0.5 gm/Dextrose 55 ml @ 110 mls/hr Q24H IVPB 12/01/16 01:00 12/08/16 00:59 12/05/16 01:11 Chlorhexidine Gluconate (Ebony-Hex 2%) 1 applic QHS TOPIC 12/01/16 21:00 12/31/16 20:59 12/04/16 22:03 Cinacalcet (Sensipar) 30 mg DAILY ORAL 12/01/16 09:00 12/31/16 08:59 12/05/16 09:59 Clopidogrel Bisulfate (Plavix) 75 mg DAILY ORAL 12/01/16 09:00 12/31/16 08:59 12/05/16 09:59 Emtricitabine (Emtriva) 200 mg WeSa@1800 ORAL 12/01/16 18:00 12/31/16 17:59 12/05/16 17:50 Fluconazole (Diflucan) 200 mg DAILY ORAL 12/01/16 09:00 12/08/16 08:59 12/05/16 09:59 Hydromorphone HCl (Dilaudid) 0.5 mg Q4H PRN IVP For Pain 7-10 12/01/16 00:15 12/08/16 00:14 12/05/16 15:25 Metronidazole (Flagyl) 500 mg Q8HR ORAL 12/01/16 06:00 12/08/16 05:59 12/05/16 06:08 Nateglinide (Starlix) 120 mg TIAC ORAL 12/01/16 06:30 12/31/16 06:29 12/05/16 17:44 Oxycodone HCl (Roxicodone) 5 mg Q4H PRN ORAL PAIN 4-6 12/01/16 00:15 12/08/16 00:14 12/05/16 12:35 Patient Own Medication (Patient's Own Med) 2 ea BID ORAL 12/01/16 09:00 12/31/16 08:59 12/05/16 17:50 Sevelamer Carbonate (Renvela) 1,600 mg TID ORAL 12/01/16 09:00 12/31/16 08:59 12/05/16 17:44 Sevelamer Carbonate (Renvela) 2,400 mg THREE TIMES A DAY ORAL 12/01/16 09:00 12/31/16 08:59 12/05/16 17:44 Sodium Chloride (Sodium Chloride 1000ml bag) 1,000 ml @ 500 mls/hr Q2H PRN IVLG sbp<90 during hd 12/01/16 06:00 12/31/16 05:59 Tenofovir Disoproxil Fumarate (Viread) 300 mg Sa@1800 ORAL 12/01/16 18:00 12/31/16 17:59 12/01/16 17:14 Vancomycin HCl (Vanco rx to dose) 1 ea DAILY PRN MISC Per rx protocol 12/01/16 09:00 12/31/16 08:59 INOCENCIA DOS SANTOS Dec 05, 2016 18:50
[2016-12-05 20:00] VITALS: BP 145/55
[2016-12-05] MEDS: Dyna-Hex 2% Top Sol 8oz TOPIC SCH (20:18)
[2016-12-06] VITALS (10 sets, daily range): BP systolic 107–154; BP diastolic 23–72
[2016-12-06] MEDS: Cefepime HCl 0.5 GM in D5W 55 ML IVPB SCH (00:53)
[2016-12-06] MEDS: Hydromorphone 0.5mg/0.5ml inj IVP PRN ×4 (00:54→18:20)
[2016-12-06] MEDS: metroNIDAZOLE 500mg tab ORAL SCH ×3 (06:01→21:27)
[2016-12-06 06:45] LABS: BASOPHILS % (AUTO) 1.2 % (0.0-2.0); EOSINOPHILS % (AUTO) 4.3 % (0.0-3.0); LYMPHOCYTES % (AUTO) 30.7 % (20.0-45.0); MEAN CORPUSCULAR HEMOGLOBIN 26.3 PG (27.0-31.0); MEAN CORPUSCULAR HGB CONC 31.3 G/DL (32.0-36.0); MEAN CORPUSCULAR VOLUME 84 FL (80-99); MEAN PLATELET VOLUME 8.1 FL (6.5-10.1); MONOCYTES % (AUTO) 11.6 % (1.0-10.0); NEUTROPHILS % (AUTO) 52.2 % (45.0-75.0); PLATELET COUNT 260 K/UL (150-450); RED CELL DISTRIBUTION WIDTH 19.8 % (11.6-14.8); WHITE BLOOD COUNT 6.4 K/UL (4.8-10.8)
[2016-12-06 07:04] LABS: ALBUMIN/GLOBULIN RATIO 0.6 (1.0-2.7); CALCIUM 8.6 mg/dL (8.6-10.2); CREATININE 7.9 mg/dL (0.7-1.2); GLOMERULAR FILTRATION RATE 8.5 mL/min (>60); POTASSIUM 5.2 mEQ/L (3.4-4.9); TOTAL PROTEIN 8.9 g/dL (6.6-8.7)
[2016-12-06] MEDS: oxyCODONE 5mg IR tab ORAL PRN ×3 (07:49→21:27)
[2016-12-06] MEDS: Fluconazole 100mg tab ORAL SCH (08:39)
[2016-12-06] MEDS: Sensipar 30mg Tab ORAL SCH (08:39)
[2016-12-06] MEDS: VIRACEPT ORAL SCH ×2 (08:40→18:04)
[2016-12-06] MEDS: Renvela 800mg Pkt ORAL SCH ×3 (08:41→18:05)
[2016-12-06] MEDS: Renvela 2400 mg pkt ORAL SCH ×3 (08:41→18:05)
--- NOTE | 2016-12-06 09:53 | Cardiac Electrophysiology PN ---
Assessment/Plan Status Narrative MIAN: Side lobe artifact refuting right atrial mass, the mass seen in the right atrial cavity with MIAN is image artifact of amplatzer device implanted for PFO closure. Eccentric regurgitant of mitral valve through prolapsed posterior leaflet consistent with severe MR Perforated vs cleft non-coronary cusp of the aortic valve leading to eccentric aortic regurgitation consistent with severe AR. Negative bubble study. Assessment/Plan 1. Bradycardia,sinus arrest, junctional rhythm. Ruled out myocardial infarction. Resolved. Off JACKSON or AVN blockers 2. Hypertension, on Norvasc 5 mg daily. 3. PAF, S/P ablation at [facility] in 2011.Off AAs in view of tom episodes.No recurrence in SR. Now off tele 4. Larger right atrial echogenic material/mass. MIAN 11/24/16 showed no intracardiac thrombus. 5. Severe AI and MR. ? Double valve surgery as out patient. 6. Peripheral vascular disease, status post metatarsal amputation, on antibiotic for right foot gangrene. Needs revascularization prior to surgery. See vasc surg note. 7. HIV 8. Hepatitis C. 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 10. Viability study 10/31/16 showed 10% nonviable myocardium. 11. End-stage renal disease, on hemodialysis. DW RN Subjective Subjective Comfortable in [facility]. Transfer to [facility] for angiogram was changed to [facility] but then refused transferring anywhere per RN. Objective Last 24 Hour Vital Signs Date Time Temp Pulse Resp B/P Pulse Ox O2 Delivery O2 Flow Rate FiO2 12/06/16 08:40 78 126/23 12/06/16 08:14 98.4 81 18 126/23 99 Room Air 12/06/16 07:14 Room Air 12/06/16 07:12 100 Room Air 21 12/06/16 04:00 98.2 79 20 133/72 97 Room Air 12/06/16 00:00 98.4 79 20 141/57 99 Room Air 12/05/16 20:00 97.3 82 20 145/55 99 Room Air 12/05/16 19:55 Room Air 12/05/16 19:55 100 Room Air 21 12/05/16 16:00 89 18 128/22 99 12/05/16 12:29 Room Air 12/05/16 12:22 97.5 87 18 131/39 99 Room Air Intake and Output 12/05/16 12/06/16 19:00 07:00 Intake Total 110 ml Balance 110 ml IV Total 110 ml # Bowel Movements 1 1 Laboratory Tests Test 12/05/16 12:40 12/06/16 04:00 12/06/16 04:30 White Blood Count 6.8 K/UL (4.8-10.8) 6.4 K/UL (4.8-10.8) Red Blood Count 4.10 M/UL (4.70-6.10) L 4.30 M/UL (4.70-6.10) L Hemoglobin 10.4 G/DL (14.2-18.0) L 11.3 G/DL (14.2-18.0) L Hematocrit 34.5 % (42.0-52.0) L 36.2 % (42.0-52.0) L Mean Corpuscular Volume 84 FL (80-99) 84 FL (80-99) Mean Corpuscular Hemoglobin 25.4 PG (27.0-31.0) L 26.3 PG (27.0-31.0) L Mean Corpuscular Hemoglobin Concent 30.3 G/DL (32.0-36.0) L 31.3 G/DL (32.0-36.0) L Red Cell Distribution Width 19.6 % (11.6-14.8) H 19.8 % (11.6-14.8) H Platelet Count 279 K/UL (150-450) 260 K/UL (150-450) Mean Platelet Volume 6.7 FL (6.5-10.1) 8.1 FL (6.5-10.1) Neutrophils (%) (Auto) 54.3 % (45.0-75.0) 52.2 % (45.0-75.0) Lymphocytes (%) (Auto) 25.8 % (20.0-45.0) 30.7 % (20.0-45.0) Monocytes (%) (Auto) 15.6 % (1.0-10.0) H 11.6 % (1.0-10.0) H Eosinophils (%) (Auto) 3.3 % (0.0-3.0) H 4.3 % (0.0-3.0) H Basophils (%) (Auto) 1.1 % (0.0-2.0) 1.2 % (0.0-2.0) Sodium Level 128 mEQ/L (135-145) L 131 mEQ/L (135-145) L Potassium Level 5.2 mEQ/L (3.4-4.9) H 5.2 mEQ/L (3.4-4.9) H Chloride Level 89 mEQ/L (98-107) L 94 mEQ/L (98-107) L Carbon Dioxide Level 19 mEQ/L (20-30) L 18 mEQ/L (20-30) L Anion Gap 20 (5-15) H 19 (5-15) H Blood Urea Nitrogen 113 mg/dL (7-23) #H 73 mg/dL (7-23) #H Creatinine 10.1 mg/dL (0.7-1.2) H 7.9 mg/dL (0.7-1.2) H Estimat Glomerular Filtration Rate 6.4 mL/min (>60) 8.5 mL/min (>60) Glucose Level 199 mg/dL (74-106) H 97 mg/dL (74-106) # Calcium Level 8.4 mg/dL (8.6-10.2) L 8.6 mg/dL (8.6-10.2) Random Vancomycin Level 20.8 ug/mL Total Bilirubin 0.4 mg/dL (0.0-1.2) Aspartate Amino Transf (AST/SGOT) 30 U/L (5-40) Alanine Aminotransferase (ALT/SGPT) 15 U/L (3-41) Alkaline Phosphatase 239 U/L (40-129) H Total Protein 8.9 g/dL (6.6-8.7) H Albumin 3.6 g/dL (3.5-5.2) Globulin 5.3 g/dL Albumin/Globulin Ratio 0.6 (1.0-2.7) L Objective HEAD AND NECK: No JVD. LUNGS: Clear. Dialysis Via left subclavian PermCath. CARDIOVASCULAR: Shows regular S1 and S2. ABDOMEN: Soft. EXTREMITIES: No pitting edema. Right foot ulcer and left metatarsal amputation. CLIFTON KEARNEY Dec 06, 2016 09:53
--- NOTE | 2016-12-06 10:30 | Infectious Diseases Prog Note ---
Assessment/Plan Assessment/Plan ASSESSMENT AND PLAN: 1. right foot and heel infected wounds and necrosis/ischemia/gangrene - wound culture with yeast, likely polymicrobial - MRI c/o osteo right ankle and possible right foot - wound culture with nicole, likely polymicrobial infection - podiatry and vascular surgery f/u noted - significant problem with foot is ischemic - continue vancomycin, cefepime, flagy and diflucan - patient will need continued abx for osteo and until surgical intervention - patient may be transferred for surgical intervention regarding right foot ischemia - wound care per protocol - MIAN without vegetation or thrombus 2. patient getting treated for right heel/foot osteo as outpatient with vancomycin and zosyn based on most recent wound culture in my office 3. End-stage renal disease, on hemodialysis. 4. Hypertension and diabetes, hep c + 5. Human immunodeficiency virus. Continue antiretroviral treatment at this time from home, cd4 ordered. Pt f/u with Dr. Chinchilla for HIV care. 6. Blood sugar and blood pressure control for diabetes and hypertension, per primary. 7. Anemia. 8. Hemodialysis per Renal. 9. Transient ischemic attack. 10. Congestive heart failure. 11. History of osteomyelitis of left foot. 12. Hepatis C. 13. History of seizure. 14. Weakness. 15. Past medical history noted. 16. Allergies to Heparin, meropenem, sulfa, and Zolpidem. 17. MAR was noted. 18. Case was discussed with RN. 19. Social history is negative. 20. Family history is noncontributory. 21. Case discussed with Dr. Thornton. 22. Continue treatment per primary consultants. 23. Wound care protocol. 24. Podiatry followup. 25. Continue Vascular Surgery evaluation. 26. Hypoglycemia treatment per primary. Subjective Constitutional: Denies: fever HEENT: Denies: congestion Respiratory: Denies: shortness of breath Cardiovascular: Denies: chest pain Gastrointestinal/Abdominal: Denies: diarrhea, nausea, vomiting Genitourinary: Denies: dysuria Neurologic: Denies: headache Skin: Denies: rash Hematologic: Denies: bleeding Musculoskeletal: Denies: pain Allergies: Coded Allergies: HEPARIN (Verified Allergy, Severe, low platelets, 06/11/14) SULFA (SULFONAMIDE ANTIBIOTICS) (Verified Allergy, Severe, nephro toxic, ) ZOLPIDEM (Verified Allergy, Unknown, 05/03/16) MEROPENEM (Verified Adverse Reaction, Intermediate, 04/01/16) Nausea and vomiting Uncoded Allergies: pork products (Allergy, Severe, rashes, 06/11/14) Objective Vital Signs Last 24 Hour Vital Signs Date Time Temp Pulse Resp B/P Pulse Ox O2 Delivery O2 Flow Rate FiO2 12/06/16 08:40 78 126/23 12/06/16 08:14 98.4 81 18 126/23 99 Room Air 12/06/16 07:14 Room Air 12/06/16 07:12 100 Room Air 21 12/06/16 04:00 98.2 79 20 133/72 97 Room Air 12/06/16 00:00 98.4 79 20 141/57 99 Room Air 12/05/16 20:00 97.3 82 20 145/55 99 Room Air 12/05/16 19:55 Room Air 12/05/16 19:55 100 Room Air 21 12/05/16 16:00 89 18 128/22 99 12/05/16 12:29 Room Air 12/05/16 12:22 97.5 87 18 131/39 99 Room Air Height (Feet): 6 Height (Inches): 6.00 Weight (Pounds): 187 General Appearance: no acute distress HEENT: normocephalic, atraumatic, anicteric, PERRL Respiratory/Chest: lungs clear, normal breath sounds, no respiratory distress, no accessory muscle use Cardiovascular: normal rate, regular rhythm, regularly irregular, no JVD Abdomen: normal bowel sounds, soft, non tender, no organomegaly, non distended Genitourinary: other - no agarwal Extremities: other - no change in right foot ischemic changes, foot warm Skin: no rash 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 Impression: Nonspecific, very small foci of abnormal signal at the dorsal heads of the first and fourth proximal phalanges. If there is evidence of active infection with ulcers in these 2 locations, osteomyelitis should be considered. Please correlate clinically. MIAN - no thrombus or vegetation per cardiology notes Microbiology Date/Time Source Procedure Growth Status 11/11/16 16:05 Blood Blood Culture - Final NO GROWTH AFTER 5 DAYS Complete 11/29/16 14:30 Nasal Nares MRSA Culture - Final NO METHICILLIN RESISTANT STAPH AUREUS... Complete 11/13/16 02:00 Foot Right Gram Stain - Final Complete 11/13/16 02:00 Aerobic Culture - Final Nicole Parapsilosis Complete 11/13/16 02:00 Foot Right Anaerobic Culture - Final NO ANAEROBES ISOLATED Complete Laboratory Tests Test 12/05/16 12:40 12/06/16 04:00 12/06/16 04:30 White Blood Count 6.8 K/UL (4.8-10.8) 6.4 K/UL (4.8-10.8) Red Blood Count 4.10 M/UL (4.70-6.10) L 4.30 M/UL (4.70-6.10) L Hemoglobin 10.4 G/DL (14.2-18.0) L 11.3 G/DL (14.2-18.0) L Hematocrit 34.5 % (42.0-52.0) L 36.2 % (42.0-52.0) L Mean Corpuscular Volume 84 FL (80-99) 84 FL (80-99) Mean Corpuscular Hemoglobin 25.4 PG (27.0-31.0) L 26.3 PG (27.0-31.0) L Mean Corpuscular Hemoglobin Concent 30.3 G/DL (32.0-36.0) L 31.3 G/DL (32.0-36.0) L Red Cell Distribution Width 19.6 % (11.6-14.8) H 19.8 % (11.6-14.8) H Platelet Count 279 K/UL (150-450) 260 K/UL (150-450) Mean Platelet Volume 6.7 FL (6.5-10.1) 8.1 FL (6.5-10.1) Neutrophils (%) (Auto) 54.3 % (45.0-75.0) 52.2 % (45.0-75.0) Lymphocytes (%) (Auto) 25.8 % (20.0-45.0) 30.7 % (20.0-45.0) Monocytes (%) (Auto) 15.6 % (1.0-10.0) H 11.6 % (1.0-10.0) H Eosinophils (%) (Auto) 3.3 % (0.0-3.0) H 4.3 % (0.0-3.0) H Basophils (%) (Auto) 1.1 % (0.0-2.0) 1.2 % (0.0-2.0) Sodium Level 128 mEQ/L (135-145) L 131 mEQ/L (135-145) L Potassium Level 5.2 mEQ/L (3.4-4.9) H 5.2 mEQ/L (3.4-4.9) H Chloride Level 89 mEQ/L (98-107) L 94 mEQ/L (98-107) L Carbon Dioxide Level 19 mEQ/L (20-30) L 18 mEQ/L (20-30) L Anion Gap 20 (5-15) H 19 (5-15) H Blood Urea Nitrogen 113 mg/dL (7-23) #H 73 mg/dL (7-23) #H Creatinine 10.1 mg/dL (0.7-1.2) H 7.9 mg/dL (0.7-1.2) H Estimat Glomerular Filtration Rate 6.4 mL/min (>60) 8.5 mL/min (>60) Glucose Level 199 mg/dL (74-106) H 97 mg/dL (74-106) # Calcium Level 8.4 mg/dL (8.6-10.2) L 8.6 mg/dL (8.6-10.2) Random Vancomycin Level 20.8 ug/mL Total Bilirubin 0.4 mg/dL (0.0-1.2) Aspartate Amino Transf (AST/SGOT) 30 U/L (5-40) Alanine Aminotransferase (ALT/SGPT) 15 U/L (3-41) Alkaline Phosphatase 239 U/L (40-129) H Total Protein 8.9 g/dL (6.6-8.7) H Albumin 3.6 g/dL (3.5-5.2) Globulin 5.3 g/dL Albumin/Globulin Ratio 0.6 (1.0-2.7) L Current Medications Medications (Trade) Dose Ordered Sig/Zohaib Route PRN Reason Start Time Stop Time Status Last Admin Dose Admin Amlodipine Besylate (Norvasc) 5 mg DAILY ORAL 12/01/16 09:00 12/31/16 08:59 12/06/16 08:40 Cefepime HCl 0.5 gm/Dextrose 55 ml @ 110 mls/hr Q24H IVPB 12/01/16 01:00 12/08/16 00:59 12/06/16 00:53 Chlorhexidine Gluconate (Ebony-Hex 2%) 1 applic QHS TOPIC 12/01/16 21:00 12/31/16 20:59 12/05/16 20:18 Cinacalcet (Sensipar) 30 mg DAILY ORAL 12/01/16 09:00 12/31/16 08:59 12/06/16 08:39 Clopidogrel Bisulfate (Plavix) 75 mg DAILY ORAL 12/01/16 09:00 12/31/16 08:59 12/06/16 08:39 Emtricitabine (Emtriva) 200 mg WeSa@1800 ORAL 12/01/16 18:00 12/31/16 17:59 12/05/16 17:50 Fluconazole (Diflucan) 200 mg DAILY ORAL 12/01/16 09:00 12/08/16 08:59 12/06/16 08:39 Hydromorphone HCl (Dilaudid) 0.5 mg Q4H PRN IVP For Pain 7-10 12/01/16 00:15 12/08/16 00:14 12/06/16 05:10 Metronidazole (Flagyl) 500 mg Q8HR ORAL 12/01/16 06:00 12/08/16 05:59 12/06/16 06:01 Nateglinide (Starlix) 120 mg TIAC ORAL 12/01/16 06:30 12/31/16 06:29 12/06/16 06:01 Oxycodone HCl (Roxicodone) 5 mg Q4H PRN ORAL PAIN 4-6 12/01/16 00:15 12/08/16 00:14 12/06/16 07:49 Patient Own Medication (Patient's Own Med) 2 ea BID ORAL 12/01/16 09:00 12/31/16 08:59 12/06/16 08:40 Sevelamer Carbonate (Renvela) 1,600 mg TID ORAL 12/01/16 09:00 12/31/16 08:59 12/06/16 08:41 Sevelamer Carbonate (Renvela) 2,400 mg THREE TIMES A DAY ORAL 12/01/16 09:00 12/31/16 08:59 12/06/16 08:41 Sodium Chloride (Sodium Chloride 1000ml bag) 1,000 ml @ 500 mls/hr Q2H PRN IVLG sbp<90 during hd 12/01/16 06:00 12/31/16 05:59 Tenofovir Disoproxil Fumarate (Viread) 300 mg Sa@1800 ORAL 12/01/16 18:00 12/31/16 17:59 12/01/16 17:14 Vancomycin HCl (Vanco rx to dose) 1 ea DAILY PRN MISC Per rx protocol 12/01/16 09:00 12/31/16 08:59 INOCENCIA DOS SANTOS Dec 06, 2016 10:30
[2016-12-06] MEDS ORDERED: NS 275ml ONE (16:04)
[2016-12-06] MEDS ORDERED: NS Irrig 1000ml ONE (16:54)
--- NOTE | 2016-12-06 18:43 | Internal Med Progress Note ---
Subjective Date of Service: Dec 06, 2016 Physician Name Didier Jimenez Attending Physician Didier Jimenez Current Medications Medications (Trade) Dose Ordered Sig/Zohaib Route PRN Reason Start Time Stop Time Status Last Admin Dose Admin Amlodipine Besylate (Norvasc) 5 mg DAILY ORAL 12/01/16 09:00 12/31/16 08:59 12/06/16 08:40 Cefepime HCl/ Dextrose (Maxipime/D5W) 55 ml @ 110 mls/hr Q24H IVPB 12/07/16 01:00 12/13/16 00:59 Chlorhexidine Gluconate (Ebony-Hex 2%) 1 applic QHS TOPIC 12/01/16 21:00 12/31/16 20:59 12/05/16 20:18 Cinacalcet (Sensipar) 30 mg DAILY ORAL 12/01/16 09:00 12/31/16 08:59 12/06/16 08:39 Clopidogrel Bisulfate (Plavix) 75 mg DAILY ORAL 12/01/16 09:00 12/31/16 08:59 12/06/16 08:39 Emtricitabine (Emtriva) 200 mg WeSa@1800 ORAL 12/01/16 18:00 12/31/16 17:59 12/05/16 17:50 Fluconazole (Diflucan) 200 mg DAILY ORAL 12/07/16 09:00 12/13/16 08:59 Hydromorphone HCl (Dilaudid) 0.5 mg Q4H PRN IVP For Pain 7-12/01/16 00:15 12/08/16 00:14 12/06/16 18:20 Metronidazole (Flagyl) 500 mg Q8HR ORAL 12/06/16 14:00 12/13/16 13:59 12/06/16 13:41 Nateglinide (Starlix) 120 mg TIAC ORAL 12/01/16 06:30 12/31/16 06:29 12/06/16 16:25 Oxycodone HCl (Roxicodone) 5 mg Q4H PRN ORAL PAIN 4-6 12/01/16 00:15 12/08/16 00:14 12/06/16 14:51 Patient Own Medication (Patient's Own Med) 2 ea BID ORAL 12/01/16 09:00 12/31/16 08:59 12/06/16 18:04 Sevelamer Carbonate (Renvela) 1,600 mg TID ORAL 12/01/16 09:00 12/31/16 08:59 12/06/16 18:05 Sevelamer Carbonate (Renvela) 2,400 mg THREE TIMES A DAY ORAL 12/01/16 09:00 12/31/16 08:59 12/06/16 18:05 Sodium Chloride (Sodium Chloride 1000ml bag) 1,000 ml @ 500 mls/hr Q2H PRN IVLG sbp<90 during hd 12/01/16 06:00 12/31/16 05:59 Tenofovir Disoproxil Fumarate 300 mg 300 mg Sa@1800 ORAL 12/01/16 18:00 12/31/16 17:59 12/01/16 17:14 Vancomycin HCl 1 ea 1 ea DAILY PRN MISC Per rx protocol 12/06/16 10:30 01/05/17 10:29 Vancomycin HCl/ Dextrose (Vancomycin/D5W) 275 ml @ 183.708 mls/hr ONCE ONCE IVPB 12/07/16 18:00 12/07/16 19:29 Allergies: Coded Allergies: HEPARIN (Verified Allergy, Severe, low platelets, 06/11/14) SULFA (SULFONAMIDE ANTIBIOTICS) (Verified Allergy, Severe, nephro toxic, ) ZOLPIDEM (Verified Allergy, Unknown, 05/03/16) MEROPENEM (Verified Adverse Reaction, Intermediate, 04/01/16) Nausea and vomiting Uncoded Allergies: pork products (Allergy, Severe, rashes, 06/11/14) ROS Limited/Unobtainable: No Constitutional: Reports: no symptoms HEENT: Reports: no symptoms Cardiovascular: Reports: no symptoms Respiratory: Reports: no symptoms Gastrointestinal/Abdominal: Reports: no symptoms Genitourinary: Reports: no symptoms Neurologic/Psychiatric: Reports: no symptoms Subjective 61 YO M admitted with shortness of breath, hypoglycemia and right diabetic foot ulcer. Now gangrene right foot with osteomyelitis. refused transfer to [facility] for angiogram of right leg-see case management note. Objective Last Vital Signs Date Time Temp Pulse Resp B/P Pulse Ox O2 Delivery O2 Flow Rate FiO2 12/06/16 16:29 97.9 81 19 111/31 99 Room Air 12/06/16 07:12 21 12/05/16 07:42 3.0 Laboratory Tests Test 12/06/16 04:00 12/06/16 04:30 Random Vancomycin Level 20.8 ug/mL White Blood Count 6.4 K/UL (4.8-10.8) Red Blood Count 4.30 M/UL (4.70-6.10) L Hemoglobin 11.3 G/DL (14.2-18.0) L Hematocrit 36.2 % (42.0-52.0) L Mean Corpuscular Volume 84 FL (80-99) Mean Corpuscular Hemoglobin 26.3 PG (27.0-31.0) L Mean Corpuscular Hemoglobin Concent 31.3 G/DL (32.0-36.0) L Red Cell Distribution Width 19.8 % (11.6-14.8) H Platelet Count 260 K/UL (150-450) Mean Platelet Volume 8.1 FL (6.5-10.1) Neutrophils (%) (Auto) 52.2 % (45.0-75.0) Lymphocytes (%) (Auto) 30.7 % (20.0-45.0) Monocytes (%) (Auto) 11.6 % (1.0-10.0) H Eosinophils (%) (Auto) 4.3 % (0.0-3.0) H Basophils (%) (Auto) 1.2 % (0.0-2.0) Sodium Level 131 mEQ/L (135-145) L Potassium Level 5.2 mEQ/L (3.4-4.9) H Chloride Level 94 mEQ/L (98-107) L Carbon Dioxide Level 18 mEQ/L (20-30) L Anion Gap 19 (5-15) H Blood Urea Nitrogen 73 mg/dL (7-23) #H Creatinine 7.9 mg/dL (0.7-1.2) H Estimat Glomerular Filtration Rate 8.5 mL/min (>60) Glucose Level 97 mg/dL (74-106) # Calcium Level 8.6 mg/dL (8.6-10.2) Total Bilirubin 0.4 mg/dL (0.0-1.2) Aspartate Amino Transf (AST/SGOT) 30 U/L (5-40) Alanine Aminotransferase (ALT/SGPT) 15 U/L (3-41) Alkaline Phosphatase 239 U/L (40-129) H Total Protein 8.9 g/dL (6.6-8.7) H Albumin 3.6 g/dL (3.5-5.2) Globulin 5.3 g/dL Albumin/Globulin Ratio 0.6 (1.0-2.7) L Intake and Output 12/05/16 12/06/16 19:00 07:00 Intake Total 110 ml Balance 110 ml IV Total 110 ml # Bowel Movements 1 1 Objective General Appearance: WD/WN, no apparent distress, alert EENT: PERRL/EOMI, normal ENT inspection, TMs normal Neck: non-tender, normal alignment, supple Cardiovascular: normal peripheral pulses, sinus bradycardia, regular rhythm, no gallop/murmur, no JVD Respiratory/Chest: chest wall non-tender, lungs clear, normal breath sounds, no respiratory distress, no accessory muscle use Abdomen: normal bowel sounds, non tender, soft, no organomegaly, no mass Extremities: right foot dressing clean and dry; normal range of motion Neurologic: waterproof coating machine tender II-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 See podiatry consult note. cont vanco, cefepime and flagyl per ID (6) HIV disease Assessment & Plan: Continue HAART per ID (7) HTN (hypertension) Assessment & Plan: Continue metoprolol (8) Diabetes Assessment & Plan: Hypoglycemic on arrival. (9) ESRD (end stage renal disease) Assessment & Plan: Last Hemodialysis 12/05/16. See nephrology note-Dr Bianchi (10) Bradycardia Assessment & Plan: See cardiology consult. D/C metoprolol and clonidine. (11) Osteomyelitis of ankle or foot, right, acute Assessment & Plan: See podiatry note. (12) Gangrene of right foot Assessment & Plan: Needs revascularization prior to surgery. See vasc surg note. (13) Right atrial mass Assessment & Plan: See cardiology note. 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 Awaiot transfer to [facility]. See vascular surgery note. (16) Hyperkalemia Assessment & Plan: Last Hemodialysis 12/01/16 -see nephrology note. Status: not improved Assessment/Plan refused Transfer to [facility]-see case management note. Discussed with podiatry and ID DIDIER JIMENEZ Dec 06, 2016 18:43
--- NOTE | 2016-12-06 21:02 | Nephrology Progress Note ---
Assessment/Plan Problem List: (1) Osteomyelitis (2) ESRD (end stage renal disease) (3) HTN (hypertension) (4) Hepatitis C (5) Hypoglycemia (6) Vascular disease (7) Valvular cardiomyopathy (8) Kefqj-Nprcy-Nbnph syndrome (9) Bradycardia (10) Hyperkalemia Plan Dialysis 12/05 via cath, , He -may have recirculation from catheter. Patient and refuse to use av fistula yet. . No fluid overload. s/p bradycardia episode, bp nl, cardiology eval reviewed, MIAN reviewed. With OWR high risk of hemorrhage if anticoagulated-- Subjective Constitutional: Reports: weakness HEENT: Reports: no symptoms Genitourinary: Reports: no symptoms Neurologic/Psychiatric: Reports: no symptoms Subjective foot pain Objective Objective Last 24 Hour Vital Signs Date Time Temp Pulse Resp B/P Pulse Ox O2 Delivery O2 Flow Rate FiO2 12/06/16 18:50 97.9 12/06/16 16:29 97.9 81 19 111/31 99 Room Air 12/06/16 12:11 99.5 82 18 125/32 99 Room Air 12/06/16 11:51 99.5 82 18 125/32 99 Room Air 12/06/16 08:40 78 126/23 12/06/16 08:14 98.4 81 18 126/23 99 Room Air 12/06/16 07:14 Room Air 12/06/16 07:12 100 Room Air 21 12/06/16 04:00 98.2 79 20 133/72 97 Room Air 12/06/16 00:00 98.4 79 20 141/57 99 Room Air Intake and Output 12/05/16 12/06/16 19:00 07:00 Intake Total 110 ml Balance 110 ml IV Total 110 ml # Bowel Movements 1 1 Laboratory Tests 12/06/16 04:00: Random Vancomycin Level 20.8 12/06/16 04:30: White Blood Count 6.4, Red Blood Count 4.30L, Hemoglobin 11.3L, Hematocrit 36.2L , Mean Corpuscular Volume 84, Mean Corpuscular Hemoglobin 26.3L, Mean Corpuscular Hemoglobin Concent 31.3L, Red Cell Distribution Width 19.8H, Platelet Count 260, Mean Platelet Volume 8.1, Neutrophils (%) (Auto) 52.2, Lymphocytes (%) (Auto) 30.7, Monocytes (%) (Auto) 11.6H, Eosinophils (%) (Auto) 4.3H, Basophils (%) (Auto) 1.2, Sodium Level 131L, Potassium Level 5.2H, Chloride Level 94L, Carbon Dioxide Level 18L, Anion Gap 19H, Blood Urea Nitrogen 73#H, Creatinine 7.9H, Estimat Glomerular Filtration Rate 8.5, Glucose Level 97#, Calcium Level 8.6, Total Bilirubin 0.4, Aspartate Amino Transf (AST/ SGOT) 30, Alanine Aminotransferase (ALT/SGPT) 15, Alkaline Phosphatase 239H, Total Protein 8.9H, Albumin 3.6, Globulin 5.3, Albumin/Globulin Ratio 0.6L Height (Feet): 6 Height (Inches): 6.00 Weight (Pounds): 187 General Appearance: no apparent distress, alert EENT: normal ENT inspection Neck: normal alignment Cardiovascular: normal rate, regular rhythm Respiratory/Chest: lungs clear Abdomen: soft, no organomegaly Extremities: other - hyperpigment toes Neurologic: counsel II-XII grossly normal DURGA MORE Dec 06, 2016 21:02
[2016-12-06] MEDS: Dyna-Hex 2% Top Sol 8oz TOPIC SCH (21:27)
[2016-12-07] MEDS: Hydromorphone 0.5mg/0.5ml inj IVP PRN ×4 (00:11→16:45)
[2016-12-07] MEDS ORDERED: Cefepime HCl 0.5 GM in D5W 55 ML IVPB SCH (01:00)
[2016-12-07 03:09] VITALS: BP 145/41
[2016-12-07] MEDS: oxyCODONE 5mg IR tab ORAL PRN ×3 (04:03→14:48)
[2016-12-07] MEDS: metroNIDAZOLE 500mg tab ORAL SCH ×2 (06:00→14:00)
[2016-12-07 08:22] VITALS: BP 142/39
[2016-12-07] MEDS: Sensipar 30mg Tab ORAL SCH (08:28)
[2016-12-07] MEDS: Renvela 2400 mg pkt ORAL SCH ×2 (08:29→13:00)
[2016-12-07] MEDS: Renvela 800mg Pkt ORAL SCH ×2 (08:29→13:00)
[2016-12-07] MEDS: VIRACEPT ORAL SCH (08:31)
[2016-12-07] MEDS ORDERED: Fluconazole 100mg tab ORAL SCH (09:00)
[2016-12-07 11:36] VITALS: BP 130/37
--- NOTE | 2016-12-07 15:22 | Cardiac Electrophysiology PN ---
Assessment/Plan Status Narrative MIAN: Side lobe artifact refuting right atrial mass, the mass seen in the right atrial cavity with MIAN is image artifact of amplatzer device implanted for PFO closure. Eccentric regurgitant of mitral valve through prolapsed posterior leaflet consistent with severe MR Perforated vs cleft non-coronary cusp of the aortic valve leading to eccentric aortic regurgitation consistent with severe AR. Negative bubble study. Assessment/Plan 1. SSS, junctional rhythm. Ruled out myocardial infarction. Resolved. Keep off JACKSON or AVN blockers 2. Hypertension, on Norvasc 5 mg daily. 3. PAF, S/P ablation at [facility] in 2011.Off AAs in view of tom episodes 4. Larger right atrial echogenic material/mass. MIAN 11/24/16 showed no intracardiac thrombus. 5. Severe AI and MR. ? Double valve surgery as out patient. 6. Peripheral vascular disease, status post metatarsal amputation, on antibiotic for right foot gangrene. Needs revascularization prior to surgery. See vasc surg note. 7. HIV 8. Hepatitis C. 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 10. Viability study 10/31/16 showed 10% nonviable myocardium. 11. End-stage renal disease, on hemodialysis. NOE RN Subjective Subjective Comfortable in NAD. DC planning home today is pending. Objective Last 24 Hour Vital Signs Date Time Temp Pulse Resp B/P Pulse Ox O2 Delivery O2 Flow Rate FiO2 12/07/16 11:36 97.9 94 20 130/37 100 Nasal Cannula 2.0 12/07/16 10:30 Nasal Cannula 2.0 12/07/16 08:30 95 142/39 12/07/16 08:22 97.8 95 20 142/39 99 Room Air 12/07/16 08:02 Room Air 12/07/16 08:01 100 Room Air 21 12/07/16 06:30 96.8 12/07/16 03:09 96.8 90 20 145/41 100 Room Air 12/06/16 23:44 97.7 78 20 137/33 99 Nasal Cannula 12/06/16 21:19 97 Room Air 21 12/06/16 21:19 Room Air 12/06/16 21:01 96.5 78 20 154/47 97 Nasal Cannula 12/06/16 20:00 96.5 78 20 154/47 100 Nasal Cannula 12/06/16 16:29 97.9 81 19 111/31 99 Room Air Intake and Output 12/06/16 12/07/16 19:00 07:00 Intake Total 55 ml Balance 55 ml IV Total 55 ml # Voids 3 # Bowel Movements 2 1 Labs Test 12/06/16 04:00 12/06/16 04:30 Random Vancomycin Level 20.8 ug/mL White Blood Count 6.4 K/UL (4.8-10.8) Red Blood Count 4.30 M/UL (4.70-6.10) Hemoglobin 11.3 G/DL (14.2-18.0) Hematocrit 36.2 % (42.0-52.0) Mean Corpuscular Volume 84 FL (80-99) Mean Corpuscular Hemoglobin 26.3 PG (27.0-31.0) Mean Corpuscular Hemoglobin Concent 31.3 G/DL (32.0-36.0) Red Cell Distribution Width 19.8 % (11.6-14.8) Platelet Count 260 K/UL (150-450) Mean Platelet Volume 8.1 FL (6.5-10.1) Neutrophils (%) (Auto) 52.2 % (45.0-75.0) Lymphocytes (%) (Auto) 30.7 % (20.0-45.0) Monocytes (%) (Auto) 11.6 % (1.0-10.0) Eosinophils (%) (Auto) 4.3 % (0.0-3.0) Basophils (%) (Auto) 1.2 % (0.0-2.0) Sodium Level 131 mEQ/L (135-145) Potassium Level 5.2 mEQ/L (3.4-4.9) Chloride Level 94 mEQ/L (98-107) Carbon Dioxide Level 18 mEQ/L (20-30) Anion Gap 19 (5-15) Blood Urea Nitrogen 73 mg/dL (7-23) Creatinine 7.9 mg/dL (0.7-1.2) Estimat Glomerular Filtration Rate 8.5 mL/min (>60) Glucose Level 97 mg/dL (74-106) Calcium Level 8.6 mg/dL (8.6-10.2) Total Bilirubin 0.4 mg/dL (0.0-1.2) Aspartate Amino Transf (AST/SGOT) 30 U/L (5-40) Alanine Aminotransferase (ALT/SGPT) 15 U/L (3-41) Alkaline Phosphatase 239 U/L (40-129) Total Protein 8.9 g/dL (6.6-8.7) Albumin 3.6 g/dL (3.5-5.2) Globulin 5.3 g/dL Albumin/Globulin Ratio 0.6 (1.0-2.7) Objective HEAD AND NECK: No JVD. LUNGS: Clear. Dialysis Via left subclavian PermCath. CARDIOVASCULAR: Shows regular S1 and S2. ABDOMEN: Soft. EXTREMITIES: No pitting edema. Right foot ulcer and left metatarsal amputation. CLIFTON KEARNEY Dec 07, 2016 15:22
[2016-12-07 16:00] VITALS: BP 134/32
--- NOTE | 2016-12-07 16:19 | Nephrology Progress Note ---
Assessment/Plan Problem List: (1) Osteomyelitis (2) ESRD (end stage renal disease) (3) HTN (hypertension) (4) Hepatitis C (5) Hypoglycemia (6) Vascular disease (7) Valvular cardiomyopathy (8) Kpvxx-Ezgud-Iewyb syndrome (9) Bradycardia (10) Hyperkalemia Plan Dialysis 12/07 via cath, , He -may have recirculation from catheter. Patient and refuse to use av fistula yet. . No fluid overload. s/p bradycardia episode, bp nl, cardiology eval reviewed, MIAN reviewed. With OWR high risk of hemorrhage if anticoagulated-- Subjective ROS Limited/Unobtainable: Yes Constitutional: Reports: weakness HEENT: Reports: no symptoms Genitourinary: Reports: no symptoms Neurologic/Psychiatric: Reports: no symptoms Subjective foot pain Objective Objective Last 24 Hour Vital Signs Date Time Temp Pulse Resp B/P Pulse Ox O2 Delivery O2 Flow Rate FiO2 12/07/16 14:00 Nasal Cannula 2.0 12/07/16 11:36 97.9 94 20 130/37 100 Nasal Cannula 2.0 12/07/16 10:30 Nasal Cannula 2.0 12/07/16 08:30 95 142/39 12/07/16 08:22 97.8 95 20 142/39 99 Room Air 12/07/16 08:02 Room Air 12/07/16 08:01 100 Room Air 21 12/07/16 06:30 96.8 12/07/16 03:09 96.8 90 20 145/41 100 Room Air 12/06/16 23:44 97.7 78 20 137/33 99 Nasal Cannula 12/06/16 21:19 97 Room Air 21 12/06/16 21:19 Room Air 12/06/16 21:01 96.5 78 20 154/47 97 Nasal Cannula 12/06/16 20:00 96.5 78 20 154/47 100 Nasal Cannula 12/06/16 16:29 97.9 81 19 111/31 99 Room Air Intake and Output 12/06/16 12/07/16 19:00 07:00 Intake Total 55 ml Balance 55 ml IV Total 55 ml # Voids 3 # Bowel Movements 2 1 Height (Feet): 6 Height (Inches): 6.00 Weight (Pounds): 186 General Appearance: no apparent distress EENT: normal ENT inspection Neck: normal alignment Cardiovascular: normal rate Respiratory/Chest: lungs clear, normal breath sounds Abdomen: non tender, soft Extremities: non-tender Neurologic: green inspector II-XII grossly normal DURGA MORE Dec 07, 2016 16:19
[2016-12-07] MEDS ORDERED: Vancomycin 1gm/D5W 275ml IVPB ONE ×2 (18:00)
--- NOTE | 2016-12-07 19:05 | Internal Med Progress Note ---
Subjective Date of Service: Dec 07, 2016 Physician Name Didier Jimenez Attending Physician Didier Jimenez Allergies: Coded Allergies: HEPARIN (Verified Allergy, Severe, low platelets, 06/11/14) SULFA (SULFONAMIDE ANTIBIOTICS) (Verified Allergy, Severe, nephro toxic, ) ZOLPIDEM (Verified Allergy, Unknown, 05/03/16) MEROPENEM (Verified Adverse Reaction, Intermediate, 04/01/16) Nausea and vomiting Uncoded Allergies: pork products (Allergy, Severe, rashes, 06/11/14) ROS Limited/Unobtainable: No Constitutional: Reports: no symptoms HEENT: Reports: no symptoms Cardiovascular: Reports: no symptoms Respiratory: Reports: no symptoms Gastrointestinal/Abdominal: Reports: no symptoms Genitourinary: Reports: no symptoms Neurologic/Psychiatric: Reports: no symptoms All Systems: reviewed and negative except above Subjective 61 YO M admitted with shortness of breath, hypoglycemia and right diabetic foot ulcer. Now gangrene right foot with osteomyelitis. Await D/C home today Objective Last Vital Signs Date Time Temp Pulse Resp B/P Pulse Ox O2 Delivery O2 Flow Rate FiO2 12/07/16 16:00 98.2 92 18 134/32 100 Room Air 12/07/16 14:00 2.0 12/07/16 08:01 21 Intake and Output 12/06/16 12/07/16 19:00 07:00 Intake Total 55 ml Balance 55 ml IV Total 55 ml # Voids 3 # Bowel Movements 2 1 Objective General Appearance: WD/WN, no apparent distress, alert EENT: PERRL/EOMI, normal ENT inspection, TMs normal Neck: non-tender, normal alignment, supple Cardiovascular: normal peripheral pulses, sinus bradycardia, regular rhythm, no gallop/murmur, no JVD Respiratory/Chest: chest wall non-tender, lungs clear, normal breath sounds, no respiratory distress, no accessory muscle use Abdomen: normal bowel sounds, non tender, soft, no organomegaly, no mass Extremities: right foot dressing clean and dry; normal range of motion Neurologic: soda fountain clerk II-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 See podiatry consult note. cont vanco, cefepime and flagyl per ID (6) HIV disease Assessment & Plan: Continue HAART per ID (7) HTN (hypertension) Assessment & Plan: Continue metoprolol (8) Diabetes Assessment & Plan: Hypoglycemic on arrival. (9) ESRD (end stage renal disease) Assessment & Plan: Last Hemodialysis 12/05/16. See nephrology note-Dr Bianchi (10) Bradycardia Assessment & Plan: See cardiology consult. D/C metoprolol and clonidine. (11) Osteomyelitis of ankle or foot, right, acute Assessment & Plan: See podiatry note. (12) Gangrene of right foot Assessment & Plan: Needs revascularization prior to surgery. See vasc surg note. (13) Right atrial mass Assessment & Plan: See cardiology note. S/P Transesophageal echo 11/23/16 (14) Eolth-Flcqp-Ovsfz syndrome (15) Peripheral vascular disease Assessment & Plan: Needs angiogram right leg. Awaiot transfer to [facility]. See vascular surgery note. (16) Hyperkalemia Assessment & Plan: Last Hemodialysis 12/01/16 -see nephrology note. Assessment/Plan D/C home today with [facility]. Continue IV cefepime and vanco per ID DIDIER JIMENEZ Dec 07, 2016 19:05
--- NOTE | 2016-12-11 14:00 | Discharge Summary ---
Discharge Summary Hospital Course Date of Admission Nov 10, 2016 at 17:23 Date of Discharge Dec 07, 2016 at 18:15 Admitting Diagnosis esrd, hemodialysis,right foot gangrene HPI Lloyd Grigsby is a 61 year old male who was admitted on Nov 10, 2016 at 17:23 for End Stage Renal Disease,Hemodialysis,Right Foot Hospital Course dc summary #[id number] Discharge Medications Continued Medications: Acyclovir* (Acyclovir*) 400 Mg Tablet 800 MG ORAL DAILY, TAB Ammonium Lactate (Ammonium Lactate) 385 Gm Cream..g. 385 GM TP BID, GM Calcitriol (Calcitriol) 0.5 Mcg Capsule 0.5 MCG PO, CAP Cefepime Hcl/D5w (Cefepime-Dextrose 1 Gm/50 Ml) 1 Gm/50 Ml Piggyback 500 MG IVPB Q24H for 13 Days, BAG Chlorhexidine Gluconate (Peridex) 15 Ml Mouthwash 15 ML MM, ML Cinacalcet* (Sensipar*) 30 Mg Tablet 30 MG ORAL DAILY, TAB Clonidine Hcl* (Catapres*) 0.1 Mg Tablet 0.1 MG ORAL EVERY 8 HOURS PRN for For High Blood Pressure, TAB Clopidogrel Bisulfate* (Plavix*) 75 Mg Tablet 75 MG ORAL DAILY, TAB Emtricitabine* (Emtriva*) 200 Mg Capsule 200 MG ORAL, CAP every Sat & Sat @1700 Epoetin Jeremiah (Epogen) 10,000 Unit/1 Ml Vial 17201 UNIT SUBQ 3XW, VIAL Epoetin Jeremiah (Epogen) 20,000 Unit/2 Ml Vial 16980 UNIT SUBQ 3XW, VIAL Ergocalciferol (Vitamin D2)* (Vitamin D*) 50,000 Unit Capsule 81624 UNIT ORAL twice monthly, CAP Fluconazole* (Diflucan*) 200 Mg Tablet 200 MG ORAL DAILY for 13 Days, #10 TAB 0 Refills Folic Acid/Vitamin B Comp W-C (Renal Caps Softgel) 1 Mg Capsule 1 MG PO DAILY, CAP Ipratropium Dennison (Atrovent Hfa) 12.9 Gm Hfa.aer.ad 12.9 GM IH Lorazepam* (Lorazepam*) 0.5 Mg Tablet 0.5 MG ORAL EVERY 6 HOURS, TAB Metoprolol Succinate* (Toprol Xl*) 25 Mg Tab.er.24h 25 MG ORAL DAILY, TAB Metronidazole* (Flagyl*) 500 Mg Tablet 500 MG ORAL EVERY 8 HOURS for 13 Days, TAB Nateglinide* (Starlix*) 60 Mg Tablet 120 MG ORAL THREE TIMES A DAY, TAB Nelfinavir Mesylate (Viracept) 625 Mg Tablet 2 TAB PO BID, TAB Oxycodone Hcl Ir* (Roxicodone Ir*) 5 Mg Tablet 5 MG ORAL Q4H PRN for For Pain, TAB Polyvinyl Alcohol/Povidone/Pf (Refresh Classic Eye Drops) 1 Each Droperette 1 EACH OP DAILY Propylene Glycol/Peg 400/Pf (Systane 0.3-0.4% Eye Drops) 1 Each Droperette 1 EACH OP FOUR TIMES A DAY Sevelamer Hcl (Renagel) 800 Mg Tablet 4 TAB ORAL TID, #90 TAB 0 Refills Temazepam (Temazepam*) 15 Mg Capsule 15 MG ORAL BEDTIME, #30 CAP 0 Refills Tenofovir Disoproxil Fumarate* (Viread*) 300 Mg Tablet 300 MG ORAL q sat, #30 TAB 0 Refills Vancomycin Hcl/D5w (Vancomycin-D5w 1 G/250 Ml) 1 Gm/250 Ml Plast..bag 750 MG IVPB dialysis days for 13 Days, BAG Vancomycin/0.9% Sod Chloride (Vancomycin-0.9% Nacl 1 G/250) 1 Gm/250 Ml Plast..bag 1 GM IV EVERY OTHER DAY, BAG Discontinued Medications: Ovsioohsyvlh-Qcfe-Fenjwlgg,Iso (Zosyn 2.25 Gm Pre-Mix Bag) 2.25 Gm/50 Ml Froz.piggy 2.25 GM IVPB EVERY 8 HOURS, BAG Discharge Condition Upon Discharge: stable Discharge Disposition Patient was discharged to Home with Home Health(06) Discharge Diagnoses: Discharge Instructions Discharge Instructions Special Instructions I have been assigned to complete a D/C Summary on this account. I was not involved in the patient management Sunitha Giraldo NP ([facility]) Dec 11, 2016 14:00
--- NOTE | 2016-12-12 04:30 | Discharge Summary 2 SIG ---
DATE OF ADMISSION: 11/10/2016 DATE OF DISCHARGE: 12/07/2016 REASON FOR ADMISSION: 61-year-old male presented frpm home with a chief complaint of right foot ulcer. The patient had nonhealing diabetic wound in the right heel and right ankle. The patient was treated for osteomyelitis with IV antibiotics at home by home health service nursing. He noted discoloration of heel as well as the exudate. The patient with ESRD, on dialysis at home five days a week. Apparently, dialysis machine broke and the patient missed dialysis. The patient follow up as outpatient with ID specialist Dr. Conway and lubrication servicer Dr. Blackburn for outpatient management of osteomyelitis and wound care respectively. In the emergency department, the patient presented with altered mental status and exhibited transient episode of involuntary movement. It was found that his blood sugar was 29. D50 one ampule given, and the patient afterwards was started on D10 IV infusion. Mental status improved. The patient had no leukocytosis. Potassium- 5.2, BUN- 76, creatinine- 11.6, and glucose- 229 after treatment. Troponin negative. The patient was admitted for further management ADMITTING DIAGNOSES: 1. Altered mental status likely secondary to hypoglycemia. 2. Hypoglycemia. 3. Possible seizure disorder. 4. Right diabetic foot ulcer. 5. Hypertension. 6. Diabetes mellitus type 2. 7. Peripheral vascular disease. 8. Human immunodeficiency virus status. 9. Hepatitis C. 10. Osteomyelitis, right foot. 11. End-stage renal disease, on hemodialysis. HOSPITAL COURSE: The patient was admitted. The patient was started on gentle IV fluids with D5 water. Accu-Chek were done before meals and bedtime. Altered mental status was likely secondary to hypoglycemia. However, Neurology consult was requested. EEG was abnormal and indicative of encephalopathy. Neurology also ordered MRI of the brain, however, the patient declined the test. CT of the head revealed no acute intracranial pathology. Neurologist recommended to observe for paroxysmal events, but no anticonvulsants at this time. Telemetry demonstrated bradyarrhythmias, sinus arrest and junctional rhythm, Patient was transferred to ICU for further management. CXR with evidence of pulmonary edema. Patient was on low dose Dopamine. Fluid removal by HD as a treatment of pulmonary edema, dialysis was arranged urgently, Scheduler followed the patient for obstructive sleep apnea. BiPAP was provided at night. Pulmonary toilet provided as needed. Supplemental oxygen provided to keep pulse oximetry above 92%. . Services Manager closely followed. The patient had an echocardiogram which revealed ejection fraction of 55% and right ventricular systolic pressure of 63 consistent with severe pulmonary hypertension. Echocardiogram also revealed large echo density in right atrium. Subsequently, consult with supervisor modern languages was requested, who suggested to obtain MIAN to check for possible right atrium mass mass and rule out any vegetation. Subsequently, MIAN was performed on 11/23/2016 and revealed no evidence of right atrial mass, actually artifact, but it revealed severe aortic regurgitation and severe mitral regurgitation. MIAN revealed no evidence of valvular vegetation. No evidence of thrombus within the left atrial appendage. 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 However, MIAN did not reveal any evidence of thrombus. Antihypertensive medications titrated as per hog raiser. Telemetry stabilized, no further evidence of cardiac arrest or junctional rhythm, Blood sugar was eventually stabilized and managed with sensitive dose of insulin. Shot Polisher closely followed. Shot Polisher arranged dialysis. Renal parameters and electrolytes were closely monitored and repleted as needed. Infectious Disease doctor followed. Blood culture were negative. Right foot culture positive for Carly ( culture was obtained by lubrication servicer, who followed the patient). The patient was on antibiotic as per ID management. Patient will be continued on antibiotics as outpatient since he needs to complete treatment for osteomyelitis. MRI of the right ankle was consistent with acute osteomyelitis. MRI of the right foot revealed possible osteomyelitis. The patient was started on anti-retroviral therapy as at home. The patient to follow up with Dr. Chinchilla as an outpatient for further management. CD4 count - 250. Chemical Processing Supervisor seen and evaluated the patient for right foot ulcer. Chemical Processing Supervisor ordered vascular studies. Venous duplex bilateral lower extremities was negative. Anterior duplex revealed evidence of calcific tibial arterial occlusive disease. Chemical Processing Supervisor recommended aggressive offload of the heels, antibiotic per ID and wound care. Vascular surgeon consult was requested in lieu of the finding of the peripheral vascular disease. Vascular surgeon concluded that the patient needs selective right leg angiogram and further tibial revascularization prior t o right heel gangrene incision and drainage by lubrication servicer. It would be done as an outpatient. Hepatitis panel positive for hepatitis C. recommended to consider outpatient treatment for hepatitis C The patient was stable for discharge home with home health services and for IV antibiotics for treatment for osteomyelitis. 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 DISCHARGE INSTRUCTIONS: The patient was discharged home with home health services for IV antibiotics. FOLLOWUP: Follow up with the primary medical doctor. Follow up with Dr. Chinchilla for anti-retroviral therapy. Follow up with the psych rn. Hemodialysis done at home. Follow up with lubrication servicer / Dr. Blackburn and Infectious Disease doctor/ Dr. Conway. Didier Thornton M.D. I have been assigned to dictate discharge summary on this account and I was not involved in the patient's management. Sunitha Giraldo ([facility]) NJonniePJonnie DR: THANH JOB#: [id number] CC: AMBAR
== END 2016-12-07 18:15 | disposition home health service (06) | DRG 637 ==
LOC: ENRESERVDT → ENRESERVTM → EMR 16:06 → EDBEDREQ 16:20 → 2E 17:23 → EDBEDREQ 20:35 → ICU 11-13 20:03 → 2W 11-16 16:40 → 2E 11-17 14:10 → 4W 11-30 21:55
PROC: 5A1D60Z (ICD-10-PCS; principal; 2016-11-10)
PROC: B244ZZ4 Ultrasonography of Right Heart, Transesophageal (ICD-10-PCS; 2016-11-23)
DX: E11.649 Type 2 diabetes mellitus with hypoglycemia without coma (principal); A41.9 Sepsis, unspecified organism; M86.171 Other acute osteomyelitis, right ankle and foot; R65.21 Severe sepsis with septic shock; I13.2 Hypertensive heart and chronic kidney disease with heart failure and with stage 5 chronic kidney disease, or end stage renal disease; N18.6 End stage renal disease; E11.621 Type 2 diabetes mellitus with foot ulcer; E11.52 Type 2 diabetes mellitus with diabetic peripheral angiopathy with gangrene; T82.9XXA Unspecified complication of cardiac and vascular prosthetic device, implant and graft, initial encounter; I27.2 Other secondary pulmonary hypertension; L97.414 Non-pressure chronic ulcer of right heel and midfoot with necrosis of bone; I48.0 Paroxysmal atrial fibrillation; E11.43 Type 2 diabetes mellitus with diabetic autonomic (poly)neuropathy; E11.22 Type 2 diabetes mellitus with diabetic chronic kidney disease; I50.9 Heart failure, unspecified; Z99.2 Dependence on renal dialysis; G40.909 Epilepsy, unspecified, not intractable, without status epilepticus; B18.2 Chronic viral hepatitis C; E87.5 Hyperkalemia; Z86.73 Personal history of transient ischemic attack (TIA), and cerebral infarction without residual deficits; I78.0 Hereditary hemorrhagic telangiectasia; R29.810 Facial weakness; I44.4 Left anterior fascicular block; R00.1 Bradycardia, unspecified; I08.0 Rheumatic disorders of both mitral and aortic valves; G47.33 Obstructive sleep apnea (adult) (pediatric)
CPT/HCPCS: 36415; 70450; 71010; 80048; 80053; 80150; 80202; 82550; 82553; 82962; 83605; 83735; 83880; 84100; 84439; 84443; 84484; 85007; 85025; 85610; 85651; 85730; 86360; 86705; 86709; 86803; 86850; 86900; 86901; 87040; 87070; 87075; 87081; 87205; 87340; 93005; 93306; 93312; 93925; 93970; 94003; 94150; 94660; 94760; 95819

== ENCOUNTER 2018-08-15 23:12 | Inpatient (IN) | payer BC ==
[~2018-08-15] VITALS: Ht 167.6 cm; Wt 68.0 kg
[~2018-08-15 23:12] MED LIST changes: +AMMONIUM LACTA385 GM TP; +CALCITRIOL0.5 MCG PO; +CEFEPIME-D1 GM/50 ML IVPB; +DIFLUCAN200 MG ORAL; +EPOGEN10000 UNIT SUBQ; +LORAZEPAM0.5 MG ORAL; +METRONIDAZOLE500 MG ORAL; +OXYCODONE HCL5 MG ORAL; +REFRESH CLASSI1 EACH OP; +SENSIPAR30 MG ORAL; +SYSTANE 0.3-0.1 EAC1 OP; +TEMAZEPAM15 MG ORAL; +VANCOMYCIN1 GM/250 M IV; +ZOSYN 2.252.25 GM/51 IVPB
--- NOTE | 2018-08-15 23:40 | NUR ---
ED Nurse Note: Patient was referred to the ER by Dr. Shah for bacteremia, patient does have a dialysis shunt on the left arm.
--- NOTE | 2018-08-15 23:45 | NUR ---
ED Nurse Note: IV ACCESS ESTABLISHED. BLOOD COLLECTED; SENT DOWN TO LAB.
[2018-08-15] MEDS ORDERED: CALCITRIOL1 MCG/1 ML IV (23:46)
[2018-08-15] MEDS ORDERED: ASPIR 8181 MG ORAL (23:46)
[2018-08-15] MEDS ORDERED: SENSIPAR30 MG ORAL (23:46)
[2018-08-15] MEDS ORDERED: PLAVIX75 MG ORAL (23:46)
[2018-08-15] MEDS ORDERED: ACYCLOVIR800 MG ORAL (23:46)
[2018-08-15] MEDS ORDERED: AMIKACIN S500 MG/2 M IJ (23:46)
[2018-08-15] MEDS ORDERED: EPOGEN20000 UNI1 SUBQ (23:46)
[2018-08-15] MEDS ORDERED: VIREAD300 MG ORAL (23:46)
[2018-08-15] MEDS ORDERED: STARLIX60 MG ORAL (23:46)
[2018-08-15] MEDS ORDERED: RENAGEL800 MG ORAL (23:46)
[2018-08-15] MEDS ORDERED: EMTRIVA200 MG ORAL (23:46)
[2018-08-15] MEDS ORDERED: SYSTANE1 EACH TP (23:46)
[2018-08-15] MEDS ORDERED: TIVICAY50 MG ORAL (23:46)
--- NOTE | 2018-08-15 23:56 | Emergency Room Report ---
History of Present Illness General Chief Complaint: General Complaint Source: Patient, Family Member Present Illness HPI Patient had a recent procedure at [facility]. There was a surgery on the toe. Blood cultures were done at that time a day ago blood cultures returned positive for a gram negative rods. The patient was advised to come to the hospital at this time. He is a dialysis patient and receiving amikacin and vancomycin to dialysis. Previous wound cultures grew Escherichia coli and Enterobacter cloacae with various sensitivities. Post procedure yesterday, the patient had bleeding that was hard to control. This was finally controlled with Gelfoam. The patient is diabetic and his sugars have been difficult to control. He's only on oral medication. They've been as high as 300 recently. The patient is undergoing home dialysis without difficulty. She has a shunt in the left upper arm. The patient is complaining about pain in his toes. It's fleeting. Pain rated 6/10, jarring and aching. Radiates up leg to body when the pain occurs. Patient requires BIPAP at night. He does not make urine. Hepatitis C and HIV. Allergies: Coded Allergies: HEPARIN (Verified Allergy, Severe, low platelets, 06/11/14) SULFA (SULFONAMIDE ANTIBIOTICS) (Verified Allergy, Severe, nephro toxic, ) ACETAMINOPHEN (Verified Allergy, Unknown, 08/16/18) PREDNISONE (Verified Allergy, Unknown, 08/16/18) ZOLPIDEM (Verified Allergy, Unknown, 05/03/16) MEROPENEM (Verified Adverse Reaction, Intermediate, 04/01/16) Nausea and vomiting Uncoded Allergies: pork products (Allergy, Severe, rashes, 06/11/14) Patient History Past Medical History: see triage record Social History: Denies: smoking Social History Narrative Reviewed Nursing Documentation: PMH: Agreed; PSxH: Agreed Nursing Documentation-PMH Hx Cardiac Problems: No - Hep c Hx Hypertension: Yes Hx Diabetes: Yes Hx Cancer: No Hx Gastrointestinal Problems: No Hx Dialysis: Yes - ESRD, Dialysis 5x a week AV fistula right side Hx Neurological Problems: No Hx Cerebrovascular Accident: Yes - stroke 2016 Hx Transient Ischemic Attacks: Yes Hx Seizures: Yes Hx Weakness: Yes - right side Review of Systems All Other Systems: negative except mentioned in HPI Physical Exam Vital Signs Date Time Temp Pulse Resp B/P (MAP) Pulse Ox O2 Delivery O2 Flow Rate FiO2 08/15/18 23:33 97.7 76 15 127/20 100 Room Air Sp02 EP Interpretation: reviewed, normal General Appearance: no apparent distress, GCS 15, Chronically Ill Head: normocephalic Eyes: bilateral eye normal inspection, bilateral eye PERRL, bilateral eye EOMI ENT: moist mucus membranes Neck: supple Respiratory: lungs clear, normal breath sounds Cardiovascular #1: regular rate, rhythm Cardiovascular #2: 2+ radial (R), 2+ radial (L) - fistula with thrill Gastrointestinal: normal inspection, normal bowel sounds, non tender, no mass, non-distended Genitourinary: no CVA tenderness Musculoskeletal: other - bilateral pressure boots feet, larger dressing R Neurologic: alert, oriented x3, sensory deficit - peripheral neuropathy Psychiatric: mood/affect normal Skin: warm/dry, other - dressings both feet Medical Decision Making Diagnostic Impression: Primary Impression: Bacteremia Additional Impressions: Diabetic foot ulcer Qualified Codes: E11.621 - Type 2 diabetes mellitus with foot ulcer; L97.514 - Non-pressure chronic ulcer of other part of right foot with necrosis of bone Osteomyelitis Qualified Codes: M86.171 - Other acute osteomyelitis, right ankle and foot ER Course Patient presents with positive blood cultures. He has a wound in his right foot. His gram-negative aron. He needs to be evaluated here with EKG, chest x- ray and labs including blood cultures and lactate. At this time he doesn't appear toxic however he is a diabetic. He is a dialysis patient he will receive gentle IV hydration. We'll consult with the ID dietitian consultant as to which antibiotic to begin. I discussed with Dr. Estrada who based on the previous sensitivities recommends dose of gentamicin at this time. The patient recently received amikacin and vancomycin (yesterday AM with dialysis). These should still be active. EKG normal sinus rhythm with access place deviation and incomplete right bundle- branch block. Chest x-ray without major infiltrates. Labs with normal white count. Elevated sedimentation rate and C-reactive protein. Slight anemia. End -stage renal disease without electrolytes requiring dialysis. Elevated BNP. refuses to allow us to undress wound in ED. Will allow on floor. The patient was improved however still complained about pain. Apparently has an allergy to Tylenol and therefore could not tolerate Percocet. He was requesting Dilaudid however because of some lethargy (felt to be related to sleep apnea - pain woke him and he was alert for discussion), agreed upon morphine small dose. Just prior to being awakened with pain in his toes the patient was quite somnolent and the was stating that he required BiPAP on the floor. This was communicated to floor and RT. The patient was discussed with Dr. Lopez who agreed with admission. The plan and medical group was used at the request of Dr. Estrada. Laboratory Tests Test 08/15/18 23:45 White Blood Count 6.8 K/UL (4.8-10.8) Red Blood Count 3.72 M/UL (4.70-6.10) L Hemoglobin 10.0 G/DL (14.2-18.0) L Hematocrit 32.1 % (42.0-52.0) L Mean Corpuscular Volume 86 FL (80-99) Mean Corpuscular Hemoglobin 26.9 PG (27.0-31.0) L Mean Corpuscular Hemoglobin Concent 31.2 G/DL (32.0-36.0) L Red Cell Distribution Width 18.5 % (11.6-14.8) H Platelet Count 353 K/UL (150-450) Mean Platelet Volume 6.2 FL (6.5-10.1) L Neutrophils (%) (Auto) 57.3 % (45.0-75.0) Lymphocytes (%) (Auto) 27.4 % (20.0-45.0) Monocytes (%) (Auto) 12.2 % (1.0-10.0) H Eosinophils (%) (Auto) 2.2 % (0.0-3.0) Basophils (%) (Auto) 0.9 % (0.0-2.0) Erythrocyte Sedimentation Rate 111 MM/HR (0-20) H Prothrombin Time 12.1 SEC (9.30-11.50) H Prothrombin Time INR 1.2 (0.9-1.1) H PTT 36 SEC (23-33) H Sodium Level 137 MMOL/L (136-145) Potassium Level 3.9 MMOL/L (3.5-5.1) Chloride Level 99 MMOL/L (98-107) Carbon Dioxide Level 31 MMOL/L (21-32) Anion Gap 7 mmol/L (5-15) Blood Urea Nitrogen 45 mg/dL (7-18) H Creatinine 6.0 MG/DL (0.55-1.30) H Estimate Glomerular Filtration Rate 11.5 mL/min (>60) Glucose Level 203 MG/DL (74-106) H Lactic Acid Level 1.30 mmol/L (0.4-2.0) Calcium Level 9.4 MG/DL (8.5-10.1) Magnesium Level 2.3 MG/DL (1.8-2.4) Total Bilirubin 0.4 MG/DL (0.2-1.0) Aspartate Amino Transferase (AST) 40 U/L (15-37) H Alanine Aminotransferase (ALT) 35 U/L (12-78) Alkaline Phosphatase 181 U/L (46-116) H Total Creatine Kinase 70 U/L (26-308) Troponin I 0.055 ng/mL (0.000-0.056) C-Reactive Protein, Quantitative 7.4 mg/dL (0.00-0.90) H Pro-B-Type Natriuretic Peptide 8605 pg/mL (0-125) H Total Protein 8.5 G/DL (6.4-8.2) H Albumin 2.5 G/DL (3.4-5.0) L Globulin 6.0 g/dL Albumin/Globulin Ratio 0.4 (1.0-2.7) L EKG Diagnostic Results Rate: normal Rhythm: NSR ST Segments: no acute changes Rhythm Strip Diag. Results EP Interpretation: yes Rhythm: NSR, no PVC's, no ectopy Chest X-Ray Diagnostic Results Chest X-Ray Diagnostic Results : Chest X-Ray Ordered: Yes # of Views/Limited/Complete: 1 View Indication: Other EP Interpretation: Yes Interpretation: no consolidation, no effusion, no pneumothorax Impression: No acute disease Electronically Signed by: Electronically signed by Ruel Kohler MD Last Vital Signs Date Time Temp Pulse Resp B/P (MAP) Pulse Ox O2 Delivery O2 Flow Rate FiO2 08/16/18 03:44 Room Air 08/16/18 02:30 97.2 58 18 155/59 (91) 96 Status: improved Disposition: ADMITTED INPATIENT Condition: Serious Referrals: NON PHYSICIAN (PCP) Ruel Kohler MD Aug 15, 2018 23:56
[2018-08-15] MEDS ORDERED: NS IVPB STA (23:58)
[2018-08-15] MEDS ORDERED: GENTAMICIN IVPB STA (23:58)
[2018-08-16] VITALS (7 sets, daily range): BP systolic 104–155; BP diastolic 20–59
--- NOTE | 2018-08-16 | NUR ---
ED Nurse Note: PT PRESENTS WITH WOUND ON BILATERAL FEET. PT REFUSE WOUND CARE PICTURES OR ASSESSMENT IN ED. PT REQUESTS PICTURES AND WOUND CARE BE DONE ON THE ADMITTING UNIT. "I DONT WANT REDRESS AND EXPOSE THE WOUND TWICE." ERMD AND CHARGE NURSE MADE AWARE
[2018-08-16] MEDS: Sodium Chloride 550 ML IV SCH ×2 (00:11→05:15)
[2018-08-16 00:50] LABS: BASOPHILS % (AUTO) 0.9 % (0.0-2.0); EOSINOPHILS % (AUTO) 2.2 % (0.0-3.0); HEMATOCRIT 32.1 % (42.0-52.0); LYMPHOCYTES % (AUTO) 27.4 % (20.0-45.0); MEAN CORPUSCULAR VOLUME 86 FL (80-99); MONOCYTES % (AUTO) 12.2 % (1.0-10.0); NEUTROPHILS % (AUTO) 57.3 % (45.0-75.0); PLATELET COUNT 353 K/UL (150-450); RED BLOOD COUNT 3.72 M/UL (4.70-6.10); RED CELL DISTRIBUTION WIDTH 18.5 % (11.6-14.8); WHITE BLOOD COUNT 6.8 K/UL (4.8-10.8)
[2018-08-16 00:57] LABS: INR 1.2 (0.9-1.1)
--- NOTE | 2018-08-16 00:59 | NUR ---
ED Nurse Note: vre cre mrsa swabs collected; sent down to lab.
[2018-08-16 01:01] LABS: ANION GAP 7 mmol/L (5-15); BLOOD UREA NITROGEN 45 mg/dL (7-18); CALCIUM 9.4 MG/DL (8.5-10.1); CARBON DIOXIDE 31 MMOL/L (21-32); CHLORIDE 99 MMOL/L (98-107); POTASSIUM 3.9 MMOL/L (3.5-5.1); SODIUM 137 MMOL/L (136-145)
[2018-08-16 01:12] LABS: ALANINE AMINOTRANSFERASE 35 U/L (12-78); ASPARTATE AMINO TRANSFERASE 40 U/L (15-37); BILIRUBIN,TOTAL 0.4 MG/DL (0.2-1.0); CREATINE KINASE 70 U/L (26-308)
[2018-08-16 01:13] LABS: ALBUMIN 2.5 G/DL (3.4-5.0); ALBUMIN/GLOBULIN RATIO 0.4 (1.0-2.7); ALKALINE PHOSPHATASE 181 U/L (46-116)
[2018-08-16] MEDS ORDERED: oxyCODONE HCL/Acetaminophen 5/325mg ORAL ONE (01:30)
[2018-08-16] MEDS ORDERED: Morphine Sulfate 2mg/ml Inj(IV/IM USE ONLY) IVP ONE (01:45)
--- NOTE | 2018-08-16 02:00 | NUR ---
TRANSFER TO FLOOR: Patient transferred to [facility] 212-2 as ordered, per MD ARGENIS. Report given to ARELY. PATIENT IN STALE CONDITION. FAMILY MEMBER AT BEDSIDE. BELONGINGS LIST COMPLETED WITH RECEIVING RN. ENDORSED WOUND CARE ASSESSMENT AND PHOTO TO RECEIVING RN.
--- NOTE | 2018-08-16 02:09 | NUR ---
NURSE NOTES: Received pt from CHUY Krueger. Pt awake, alert, and talkative. Both feet noted to have toes amputated. R. Foot more recent, s/p 08/14. at bedside. Dressing change done. Pictures taken. Otherwise skin intact. SB on cardiac cath lab radiology technologist. IV site intact and running gentamycin. Bed in lowest position. Call light within reach. Pt able to turn self. Will continue to monitor.
--- NOTE | 2018-08-16 02:32 | NUR ---
NURSE NOTES: Called and left a message with the on-call MD, DR. Lopez, regarding admission orders. Awaiting call back
--- NOTE | 2018-08-16 03:16 | General Progress Note ---
Assessment/Plan Plan: The [facility] An independent Hospitalist group, where every patient is our [facility] Internal Medicine and Hospitalist Overnight Note Please contact us at Please text me on Voalte from 8a-6p regarding any patient questions From 6p-8a please call [phone] Case discussed with ED Physician. Chart, labs, imaging, vitals and other flowsheets reviewed. Patient presents with chest pain Plan overnight will be admit for bacteremia workup with iv abx Full admission orders completed. Full and complete H+P to follow Time of note may not reflect time of encounter. Signed: Anita Lopez DO [facility] Pager: [phone] Subjective Allergies: Coded Allergies: HEPARIN (Verified Allergy, Severe, low platelets, 06/11/14) SULFA (SULFONAMIDE ANTIBIOTICS) (Verified Allergy, Severe, nephro toxic, ) ACETAMINOPHEN (Verified Allergy, Unknown, 08/16/18) PREDNISONE (Verified Allergy, Unknown, 08/16/18) ZOLPIDEM (Verified Allergy, Unknown, 05/03/16) MEROPENEM (Verified Adverse Reaction, Intermediate, 04/01/16) Nausea and vomiting Uncoded Allergies: pork products (Allergy, Severe, rashes, 06/11/14) Objective Last 24 Hour Vital Signs Date Time Temp Pulse Resp B/P (MAP) Pulse Ox O2 Delivery O2 Flow Rate FiO2 08/16/18 02:00 97.7 86 15 127/20 100 Room Air 08/16/18 01:20 97.7 86 15 127/20 100 Room Air 08/16/18 01:19 76 15 Room Air 08/15/18 23:33 97.7 76 15 127/20 100 Room Air Intake and Output 08/15/18 08/16/18 18:59 06:59 Intake Total 0 ml Balance 0 ml Intake Oral 0 ml Laboratory Tests 08/15/18 23:45: White Blood Count 6.8, Red Blood Count 3.72L, Hemoglobin 10.0L, Hematocrit 32.1L , Mean Corpuscular Volume 86, Mean Corpuscular Hemoglobin 26.9L, Mean Corpuscular Hemoglobin Concent 31.2L, Red Cell Distribution Width 18.5H, Platelet Count 353, Mean Platelet Volume 6.2L, Neutrophils (%) (Auto) 57.3, Lymphocytes (%) (Auto) 27.4, Monocytes (%) (Auto) 12.2H, Eosinophils (%) (Auto) 2.2, Basophils (%) (Auto) 0.9, Erythrocyte Sedimentation Rate 111H, Prothrombin Time 12.1H, Prothromb Time International Ratio 1.2H, Activated Partial Thromboplast Time 36H, Sodium Level 137, Potassium Level 3.9, Chloride Level 99 , Carbon Dioxide Level 31, Anion Gap 7, Blood Urea Nitrogen 45H, Creatinine 6.0H , Estimat Glomerular Filtration Rate 11.5, Glucose Level 203H, Lactic Acid Level 1.30, Calcium Level 9.4, Magnesium Level 2.3, Total Bilirubin 0.4, Aspartate Amino Transf (AST/SGOT) 40H, Alanine Aminotransferase (ALT/SGPT) 35, Alkaline Phosphatase 181H, Total Creatine Kinase 70, Troponin I 0.055, C- Reactive Protein, Quantitative 7.4H, Pro-B-Type Natriuretic Peptide 8605H, Total Protein 8.5H, Albumin 2.5L, Globulin 6.0, Albumin/Globulin Ratio 0.4L Height (Feet): 5 Height (Inches): 6.00 Weight (Pounds): 150 Anita Lopez DO Aug 16, 2018 03:16
[2018-08-16] MEDS ORDERED: Milk of Magnesia 30ml Ud ORAL PRN (03:30)
[2018-08-16] MEDS ORDERED: HYDROcodone/Acetamin 5/325 tab ORAL PRN (03:30)
[2018-08-16] MEDS ORDERED: Mylanta II UD 30ml ORAL PRN (03:30)
[2018-08-16] MEDS ORDERED: Hydromorphone 0.5mg/0.5ml inj IVP PRN (03:30)
[2018-08-16] MEDS ORDERED: Acetaminophen 650 MG SUPP RECTAL PRN (03:30)
[2018-08-16] MEDS ORDERED: Nitroglycerin Subl 0.4mg tab SL PRN (03:30)
[2018-08-16] MEDS ORDERED: LORazepam 1mg tab ORAL PRN (03:30)
--- NOTE | 2018-08-16 05:09 | Diagnostic Imaging Report ---
EXAM: XR Chest, 1 View CLINICAL HISTORY: Difficulty Breathing TECHNIQUE: Frontal view of the chest. COMPARISON: 11/10/16 FINDINGS: Lungs: Probable mild atelectasis of the lung bases, left greater than right. Pleural space: No definite plain film evidence for pneumothorax. Heart: Unremarkable. No cardiomegaly. Mediastinum: Unremarkable. Bones/joints: Degenerative changes of the thoracic spine. Soft tissues: Clips are projected in the left axillary region. Upper abdomen: Mild elevation of the left hemidiaphragm. IMPRESSION: Probable mild atelectasis of the lung bases, left greater than right.
--- NOTE | 2018-08-16 05:57 | NUR ---
NURSE NOTES: Called and left a message with Dr. Lopez regarding pts allergy to heparin. She gave eliquis 5 mg po bid. Will input order and will continue to monitor
[2018-08-16] MEDS ORDERED: Aztreonam Inj 1 GM in D5W 55 ML IVPB SCH (06:00)
[2018-08-16] MEDS: Nateglinide 60mg tab ORAL SCH ×3 (06:14→18:21)
--- NOTE | 2018-08-16 06:14 | NUR ---
NURSE NOTES: Pts family refused everything Dr. Lopez ordered as far as meds. She gave patient instructions to me which i will endorse to day nurse about what should and shouldnt be given to her . Pt awaiting primary MD to discuss meds during hospital stay. until then, ABSOLUTELY NO MEDS SHOULD BE GIVEN TO THE WITHOUT 'S CONSENT. Will endorse and will continue to monitor.
--- NOTE | 2018-08-16 07:20 | NUR ---
NURSE NOTES: Received report from CHUY Schultz. Pt is sitting up in bed having breakfast. is at bedside with questions. Bed is in lowest position, side rails up X 2, and call light is within reach. Will continue to monitor. provided a list of medication she wants changed. Will contact primary MD to go over and receive new orders.
--- NOTE | 2018-08-16 08:57 | History & Physical ---
History and Physical History & Physicial Patient seen and examined at bedside, case d/w RN and at bedside as well. Full H+P to follow Pt presents with bacteremia from infected diabetic foot ulcers, s/p recent debridement at OSH Will consult Nephrology for HD (Julien) Will consult Dr. Blackburn from Podiatry Will consult Dr. Estrada from ID Pt is on appropriate IV abx at this time João Smart MD Aug 16, 2018 08:57
[2018-08-16] MEDS ORDERED: Emtricitabine 200mg tab ORAL SCH (09:00)
[2018-08-16] MEDS ORDERED: Eliquis 2.5mg tablet ORAL SCH (09:00)
[2018-08-16] MEDS: Aspirin EC 81mg tab ORAL SCH (09:00)
[2018-08-16] MEDS: Metoprolol Succinate XL 25mg tab ORAL SCH (09:00)
[2018-08-16] MEDS ORDERED: Heparin 5000 units/ml inj SUBQ SCH (09:00)
[2018-08-16] MEDS ORDERED: Sensipar 30mg Tab ORAL SCH ×2 (09:00→18:00)
[2018-08-16] MEDS: Docusate 100mg cap ORAL SCH ×2 (09:20→21:00)
--- NOTE | 2018-08-16 09:30 | NUR ---
NURSE NOTES: Sr. Smart spoke with the patient and his . Per MD, ok to change medications to what the is requesting. Called pharmacy and made them aware that the patient is only able to bring 2 out of his 3 HIV medications. does not have access to Tivicay. Pharmacist aware. New orders carried out. Will continue to monitor.
[2018-08-16] MEDS: oxyCODONE 5mg IR tab ORAL PRN ×2 (09:56→21:18)
--- NOTE | 2018-08-16 10:07 | NUR ---
RD ASSESSMENT & RECOMMENDATIONS SEE CARE ACTIVITY FOR COMPLETE ASSESSMENT DAILY ESTIMATED NEEDS: Needs based on ESRD on HD + wound healing, 58kg 30-35 kcals/kg 5835-5700 total kcals 1.25-1.8 g protein/kg 72-104 g total protein 20-22 mL/kg 3035-1587 total fluid mLs NUTRITION DIAGNOSIS: 1) Increased KCAL and protein needs R/T renal dysfunction and wound healing as evidenced by pt w/ ESRD on HD, w/ infected diabetic foot ulcers, s/p recent debridement and amputation of rt foot. CURRENT DIET:RENAL PO DIET RECOMMENDATIONS: RENAL, CCHO MED, DOUBLE PROTEIN PORTIONS ADDITIONAL RECOMMENDATIONS: - Wound healing: add MOISE BID + Nephrovite 1 tab QD : ZnSO4 220mg QD x 10 days - CALIBRATED bedscale wt post HD - Monitor BGs closely -> rec accucheck w/ SSI Addendum: 08/16/18 at [address] correction: amputation of rt foot toes, not foot
--- NOTE | 2018-08-16 10:40 | NUR ---
NURSE NOTES: left messages for DR. Calvillo and Dr. Olivo regarding new consultation for this patient.
--- NOTE | 2018-08-16 10:58 | Consultation ---
History of Present Illness General Date patient seen: Aug 16, 2018 Time patient seen: 10:45 Chief Complaint: Diabetic foot ulcer. Reason for Consultation: Diabetic foot ulcer. Present Illness HPI S:Seen pt bedside for diabetic foot ulcer. Pt states he would not let me take off his dressing unless his was on the phone. Allergies: Coded Allergies: HEPARIN (Verified Allergy, Severe, low platelets, 06/11/14) SULFA (SULFONAMIDE ANTIBIOTICS) (Verified Allergy, Severe, nephro toxic, ) ACETAMINOPHEN (Verified Allergy, Unknown, 08/16/18) PREDNISONE (Verified Allergy, Unknown, 08/16/18) ZOLPIDEM (Verified Allergy, Unknown, 05/03/16) MEROPENEM (Verified Adverse Reaction, Intermediate, 04/01/16) Nausea and vomiting Uncoded Allergies: pork products (Allergy, Severe, rashes, 06/11/14) Medication History Scheduled Acyclovir* (Acyclovir*), 800 MG ORAL DAILY, (Reported) Acyclovir* (Zovirax*), 800 MG ORAL FIVE TIMES A DAY, (Reported) Ammonium Lactate (Ammonium Lactate), 385 GM TP BID, (Reported) Aspirin* (Aspir 81*), 81 MG ORAL DAILY, (Reported) Cefepime Hcl/D5w (Cefepime-Dextrose 1 Gm/50 Ml), 500 MG IVPB Q24H, (Reported) Cinacalcet* (Sensipar*), 30 MG ORAL DAILY, (Reported) Cinacalcet* (Sensipar*), 30 MG ORAL DAILY, (Reported) Clopidogrel Bisulfate* (Plavix*), 75 MG ORAL DAILY, (Reported) Clopidogrel Bisulfate* (Plavix*), 75 MG ORAL DAILY, (Reported) Dolutegravir Sodium (Tivicay), 50 MG ORAL DAILY, (Reported) Emtricitabine* (Emtriva*), 200 MG ORAL DAILY, (Reported) Epoetin Jeremiah (Epogen), 10,000 UNIT SUBQ 3XW, (Reported) Epoetin Jeremiah (Epogen), 10,000 UNIT SUBQ 3XW, (Reported) Ergocalciferol (Vitamin D2)* (Vitamin D*), 50,000 UNIT ORAL twice monthly, ( Reported) Fluconazole* (Diflucan*), 200 MG ORAL DAILY, (Reported) Folic Acid/Vitamin B Comp W-C (Renal Caps Softgel), 1 MG PO DAILY, (Reported) Lorazepam* (Lorazepam*), 0.5 MG ORAL EVERY 6 HOURS, (Reported) Metoprolol Succinate* (Toprol Xl*), 25 MG ORAL DAILY, (Reported) Metronidazole* (Flagyl*), 500 MG ORAL EVERY 8 HOURS, (Reported) Nateglinide* (Starlix*), 120 MG ORAL THREE TIMES A DAY, (Reported) Nateglinide* (Starlix*), 60 MG ORAL THREE TIMES A DAY, (Reported) Nelfinavir Mesylate (Viracept), 2 TAB PO BID, (Reported) Polyvinyl Alcohol/Povidone/Pf (Refresh Classic Eye Drops), 1 EACH OP DAILY, ( Reported) Propylene Glycol/Peg 400/Pf (Systane 0.3-0.4% Eye Drops), 1 EACH OP FOUR TIMES A DAY, (Reported) Sevelamer Hcl (Renagel), 4 TAB ORAL TID, (Reported) Sevelamer Hcl (Renagel), 800 MG ORAL THREE TIMES A DAY, (Reported) Temazepam (Temazepam*), 15 MG ORAL BEDTIME, (Reported) Tenofovir Disoproxil Fumarate* (Viread*), 300 MG ORAL q sat, (Reported) Tenofovir Disoproxil Fumarate* (Viread*), 300 MG ORAL DAILY, (Reported) Vancomycin Hcl/D5w (Vancomycin-D5w 1 G/250 Ml), 750 MG IVPB dialysis days , ( Reported) Vancomycin/0.9% Sod Chloride (Vancomycin-0.9% Nacl 1 G/250), 1 GM IV EVERY OTHER DAY, (Reported) Scheduled PRN Clonidine Hcl* (Catapres*), 0.1 MG ORAL EVERY 8 HOURS PRN for For High Blood Pressure, (Reported) Oxycodone Hcl Ir* (Roxicodone Ir*), 5 MG ORAL Q4H PRN for For Pain, (Reported) Miscellaneous Medications Amikacin Sulfate (Amikacin Sulfate*), 500 MG IJ, (Reported) Calcitriol (Calcitriol), 0.5 MCG PO, (Reported) Calcitriol (Calcitriol*), 1 MCG IV, (Reported) Chlorhexidine Gluconate (Peridex), 15 ML MM, (Reported) Emtricitabine* (Emtriva*), 200 MG ORAL, (Reported) Epoetin Jeremiah (Epogen), 20,000 UNIT SUBQ, (Reported) Eyelid Cleanser Combination #9 (Systane), 1 EACH TP, (Reported) Ipratropium [place] (Atrovent Hfa), 12.9 GM IH, (Reported) Patient History Healthcare decision maker Michael yang Resuscitation status Full Code Advanced Directive on File Physical Exam Physical Exam Narrative B/L Focused foot exam: B/L bandages noted to feet, no strike through noted. C/D/ I. Pt refused for them to be removed at bedside. Last 24 Hour Vital Signs Date Time Temp Pulse Resp B/P (MAP) Pulse Ox O2 Delivery O2 Flow Rate FiO2 08/16/18 09:25 69 16 97 08/16/18 08:00 98.0 60 15 115/37 (63) 97 08/16/18 08:00 25 08/16/18 08:00 58 08/16/18 07:17 67 16 95 08/16/18 05:49 58 14 99 Facial 30 08/16/18 04:00 97.3 57 18 132/50 (77) 99 08/16/18 04:00 54 08/16/18 04:00 25 08/16/18 03:44 Room Air 08/16/18 02:30 97.2 58 18 155/59 (91) 96 08/16/18 02:09 58 08/16/18 02:00 97.7 86 15 127/20 100 Room Air 08/16/18 01:20 97.7 86 15 127/20 100 Room Air 08/16/18 01:19 76 15 Room Air 08/15/18 23:33 97.7 76 15 127/20 100 Room Air Intake and Output 08/15/18 08/16/18 19:00 07:00 Intake Total 0 ml Output Total 0 ml Balance 0 ml Intake Oral 0 ml Output Urine Total 0 ml # Bowel Movements 1 Laboratory Tests Test 08/15/18 23:45 White Blood Count 6.8 K/UL (4.8-10.8) Red Blood Count 3.72 M/UL (4.70-6.10) L Hemoglobin 10.0 G/DL (14.2-18.0) L Hematocrit 32.1 % (42.0-52.0) L Mean Corpuscular Volume 86 FL (80-99) Mean Corpuscular Hemoglobin 26.9 PG (27.0-31.0) L Mean Corpuscular Hemoglobin Concent 31.2 G/DL (32.0-36.0) L Red Cell Distribution Width 18.5 % (11.6-14.8) H Platelet Count 353 K/UL (150-450) Mean Platelet Volume 6.2 FL (6.5-10.1) L Neutrophils (%) (Auto) 57.3 % (45.0-75.0) Lymphocytes (%) (Auto) 27.4 % (20.0-45.0) Monocytes (%) (Auto) 12.2 % (1.0-10.0) H Eosinophils (%) (Auto) 2.2 % (0.0-3.0) Basophils (%) (Auto) 0.9 % (0.0-2.0) Erythrocyte Sedimentation Rate 111 MM/HR (0-20) H Prothrombin Time 12.1 SEC (9.30-11.50) H Prothromb Time International Ratio 1.2 (0.9-1.1) H Activated Partial Thromboplast Time 36 SEC (23-33) H Sodium Level 137 MMOL/L (136-145) Potassium Level 3.9 MMOL/L (3.5-5.1) Chloride Level 99 MMOL/L (98-107) Carbon Dioxide Level 31 MMOL/L (21-32) Anion Gap 7 mmol/L (5-15) Blood Urea Nitrogen 45 mg/dL (7-18) H Creatinine 6.0 MG/DL (0.55-1.30) H Estimat Glomerular Filtration Rate 11.5 mL/min (>60) Glucose Level 203 MG/DL (74-106) H Lactic Acid Level 1.30 mmol/L (0.4-2.0) Calcium Level 9.4 MG/DL (8.5-10.1) Magnesium Level 2.3 MG/DL (1.8-2.4) Total Bilirubin 0.4 MG/DL (0.2-1.0) Aspartate Amino Transf (AST/SGOT) 40 U/L (15-37) H Alanine Aminotransferase (ALT/SGPT) 35 U/L (12-78) Alkaline Phosphatase 181 U/L (46-116) H Total Creatine Kinase 70 U/L (26-308) Troponin I 0.055 ng/mL (0.000-0.056) C-Reactive Protein, Quantitative 7.4 mg/dL (0.00-0.90) H Pro-B-Type Natriuretic Peptide 8605 pg/mL (0-125) H Total Protein 8.5 G/DL (6.4-8.2) H Albumin 2.5 G/DL (3.4-5.0) L Globulin 6.0 g/dL Albumin/Globulin Ratio 0.4 (1.0-2.7) L Microbiology Date/Time Source Procedure Growth Status 08/16/18 01:00 Rectum Received Height (Feet): 5 Height (Inches): 6.00 Weight (Pounds): 150 Medications Current Medications Medications (Trade) Dose Ordered Sig/Zohaib Route PRN Reason Start Time Stop Time Status Last Admin Dose Admin Acyclovir (Zovirax) 800 mg Q8HR ORAL 08/16/18 06:00 09/15/18 05:59 Al Hydroxide/Mg Hydroxide (Mylanta II) 30 ml Q6H PRN ORAL dyspepsia 08/16/18 03:30 09/15/18 03:29 Aspirin (Ecotrin) 81 mg DAILY ORAL 08/16/18 09:00 09/15/18 08:59 Aztreonam 1 gm/ Sodium Chloride 55 ml @ 110 mls/hr Q8H IVPB 08/16/18 11:00 08/23/18 10:59 Bisacodyl (Dulcolax) 10 mg HSPRN PRN RECTAL Constipation 08/16/18 03:30 09/15/18 03:29 Cinacalcet (Sensipar) 30 mg DAILY ORAL 08/16/18 18:00 09/15/18 08:59 UNV Clonidine HCl (Catapres Tab) 0.1 mg Q8H PRN ORAL SBP >160 08/16/18 09:45 09/15/18 09:44 Clopidogrel Bisulfate (Plavix) 75 mg DAILY ORAL 08/17/18 09:00 09/16/18 08:59 Dextrose (Dextrose 50%) 25 ml Q30M PRN IV Hypoglycemia 08/16/18 03:30 09/15/18 03:29 Dextrose (Dextrose 50%) 50 ml Q30M PRN IV Hypoglycemia 08/16/18 03:30 09/15/18 03:29 Diphenhydramine HCl (Benadryl) 25 mg Q6H PRN ORAL Itching/Pruritis 08/16/18 03:30 09/15/18 03:29 Docusate Sodium (Colace) 100 mg EVERY 12 HOURS ORAL 08/16/18 09:00 09/15/18 08:59 08/16/18 09:20 Dolutegravir Sodium (Tivicay) 50 mg DAILY ORAL 08/16/18 09:00 09/15/18 08:59 UNV Emtricitabine (Emtriva) 200 mg DAILY ORAL 08/16/18 09:00 09/15/18 08:59 UNV Hydromorphone HCl (Dilaudid) 0.5 mg Q6H PRN IVP breakthrough 08/16/18 03:30 08/23/18 03:29 Lorazepam (Ativan) 1 mg Q4H PRN ORAL For Anxiety 08/16/18 03:30 08/23/18 03:29 Magnesium Hydroxide (Mom) 30 ml HSPRN PRN ORAL Constipation 08/16/18 03:30 09/15/18 03:29 Metoprolol Succinate (Toprol XL) 25 mg DAILY ORAL 08/16/18 09:00 09/15/18 08:59 Nateglinide (Starlix) 60 mg TID@0630,1130,1630 ORAL 08/16/18 06:30 09/15/18 06:29 Nitroglycerin (Ntg) 0.4 mg Q5M X 3 DOSES PRN SL Prn Chest Pain 08/16/18 03:30 09/15/18 03:29 Ondansetron HCl (Zofran) 4 mg Q6H PRN IVP Nausea & Vomiting 08/16/18 03:30 09/15/18 03:29 Oxycodone HCl (Roxicodone) 5 mg Q4H PRN ORAL For Pain 08/16/18 03:45 08/23/18 03:44 08/16/18 09:56 Sodium Chloride 550 ml @ 100 mls/hr Q5H30M IV 08/15/18 23:45 09/14/18 23:44 08/16/18 00:11 Temazepam (Restoril) 15 mg BEDTIME ORAL 08/16/18 21:00 08/23/18 20:59 Tenofovir Disoproxil Fumarate (Viread) 300 mg DAILY ORAL 08/16/18 09:00 09/15/18 08:59 UNV Assessment/Plan Assessment: A: Diabetic foot ulcer: P: - Pt tried multiple times to contact his with no answer. - Pt refused treatment at bedside. - Will attempt to see patient again, advised patient to make sure is available. Germán Campbell DPM Aug 16, 2018 10:58
[2018-08-16] MEDS: Aztreonam Inj 1 GM in NS 55 ML IVPB SCH ×2 (11:00→18:21)
--- NOTE | 2018-08-16 11:07 | NUR ---
NURSE NOTES: Received call from Megan, dialysis nurse. She states that dr. Olivo called her and that she will be here around 4-5 pm. I informed her that pts wants to canalize the patient herself. Megan, said that was fine and that she would call us when she was on her way so we can call .
--- NOTE | 2018-08-16 11:13 | General Progress Note ---
Progress Note Progress Note lab was reviewed dialysis was ordered VIP dialysis nurse was informed consult will be done shortly Thanks Janis Olivo MD Aug 16, 2018 11:13
--- NOTE | 2018-08-16 11:31 | NUR ---
NURSE NOTES: Patient does not want us to hang the antibiotics until his gets here. He said he feels better if we hang antibioics when the is here to review them prior to administration
--- NOTE | 2018-08-16 13:02 | NUR ---
NURSE NOTES: Received call from Megan HD nurse. She states that she will be here around 2:30. She asked that i call the to inform her as the wants to to set up the HD. Called . She said she would be here. I also told her that pt does not want me to give antibiotics now until she comes and sees them. She states " yes, I want to see it before. Thats what I told him to do". Per , We can hang antibiotics until after HD.
[2018-08-16] MEDS ORDERED: Gentamicin Rx monitoring MISC PRN (14:15)
--- NOTE | 2018-08-16 14:38 | Infectious Diseases Prog Note ---
Assessment/Plan Assessment/Plan Full consult dictated: A) 1) right foot infected wound/ulcer with necrosis/gangrene and ? osteomyelitis , hx gram negatives on wound culture 2) gram neg bacteremia from outside labs, ID pending 3) left arm swelling, left arm with fistula, no cellulitis 4) hiv, esrd, hd, anemia, cva, sz, weakness, dm, htn, anemia, tia, hep c, hubert , bipap 5) allergies - meropenem, others noted, sh-neg, fh-nc, mar noted, records noted 6) d/w RN and P) 1) vancomycin, aztreonam, flagyl and gentamicin 2) check blood cultures at [place] and outside lab 3) check wc, monitor labs, check x-rays, consider MRI right foot but will defer to podiatry 4) podiatry f/u, consider vascular surgery evaluation for left leg/foot and left arm swelling 5) continue per Dr. Smart and renal service - Dr. Olivo 6) thank you Subjective Allergies: Coded Allergies: HEPARIN (Verified Allergy, Severe, low platelets, 06/11/14) SULFA (SULFONAMIDE ANTIBIOTICS) (Verified Allergy, Severe, nephro toxic, ) ACETAMINOPHEN (Verified Allergy, Unknown, 08/16/18) PREDNISONE (Verified Allergy, Unknown, 08/16/18) ZOLPIDEM (Verified Allergy, Unknown, 05/03/16) MEROPENEM (Verified Adverse Reaction, Intermediate, 04/01/16) Nausea and vomiting Uncoded Allergies: pork products (Allergy, Severe, rashes, 06/11/14) Objective Vital Signs Last 24 Hour Vital Signs Date Time Temp Pulse Resp B/P (MAP) Pulse Ox O2 Delivery O2 Flow Rate FiO2 08/16/18 13:29 72 16 98 08/16/18 12:00 25 08/16/18 12:00 98.4 67 16 122/50 (74) 97 08/16/18 12:00 65 08/16/18 11:20 69 16 98 08/16/18 09:25 69 16 97 08/16/18 09:00 Room Air 08/16/18 08:00 98.0 60 15 115/37 (63) 97 08/16/18 08:00 25 08/16/18 08:00 58 08/16/18 07:17 67 16 95 08/16/18 05:49 58 14 99 Facial 30 08/16/18 04:00 97.3 57 18 132/50 (77) 99 08/16/18 04:00 54 08/16/18 04:00 25 08/16/18 03:44 Room Air 08/16/18 02:30 97.2 58 18 155/59 (91) 96 08/16/18 02:09 58 08/16/18 02:00 97.7 86 15 127/20 100 Room Air 08/16/18 01:20 97.7 86 15 127/20 100 Room Air 08/16/18 01:19 76 15 Room Air 08/15/18 23:33 97.7 76 15 127/20 100 Room Air Height (Feet): 5 Height (Inches): 6.00 Weight (Pounds): 150 Microbiology Date/Time Source Procedure Growth Status 08/16/18 01:00 Rectum Received Laboratory Tests Test 08/15/18 23:45 White Blood Count 6.8 K/UL (4.8-10.8) Red Blood Count 3.72 M/UL (4.70-6.10) L Hemoglobin 10.0 G/DL (14.2-18.0) L Hematocrit 32.1 % (42.0-52.0) L Mean Corpuscular Volume 86 FL (80-99) Mean Corpuscular Hemoglobin 26.9 PG (27.0-31.0) L Mean Corpuscular Hemoglobin Concent 31.2 G/DL (32.0-36.0) L Red Cell Distribution Width 18.5 % (11.6-14.8) H Platelet Count 353 K/UL (150-450) Mean Platelet Volume 6.2 FL (6.5-10.1) L Neutrophils (%) (Auto) 57.3 % (45.0-75.0) Lymphocytes (%) (Auto) 27.4 % (20.0-45.0) Monocytes (%) (Auto) 12.2 % (1.0-10.0) H Eosinophils (%) (Auto) 2.2 % (0.0-3.0) Basophils (%) (Auto) 0.9 % (0.0-2.0) Erythrocyte Sedimentation Rate 111 MM/HR (0-20) H Prothrombin Time 12.1 SEC (9.30-11.50) H Prothromb Time International Ratio 1.2 (0.9-1.1) H Activated Partial Thromboplast Time 36 SEC (23-33) H Sodium Level 137 MMOL/L (136-145) Potassium Level 3.9 MMOL/L (3.5-5.1) Chloride Level 99 MMOL/L (98-107) Carbon Dioxide Level 31 MMOL/L (21-32) Anion Gap 7 mmol/L (5-15) Blood Urea Nitrogen 45 mg/dL (7-18) H Creatinine 6.0 MG/DL (0.55-1.30) H Estimat Glomerular Filtration Rate 11.5 mL/min (>60) Glucose Level 203 MG/DL (74-106) H Lactic Acid Level 1.30 mmol/L (0.4-2.0) Calcium Level 9.4 MG/DL (8.5-10.1) Magnesium Level 2.3 MG/DL (1.8-2.4) Total Bilirubin 0.4 MG/DL (0.2-1.0) Aspartate Amino Transf (AST/SGOT) 40 U/L (15-37) H Alanine Aminotransferase (ALT/SGPT) 35 U/L (12-78) Alkaline Phosphatase 181 U/L (46-116) H Total Creatine Kinase 70 U/L (26-308) Troponin I 0.055 ng/mL (0.000-0.056) C-Reactive Protein, Quantitative 7.4 mg/dL (0.00-0.90) H Pro-B-Type Natriuretic Peptide 8605 pg/mL (0-125) H Total Protein 8.5 G/DL (6.4-8.2) H Albumin 2.5 G/DL (3.4-5.0) L Globulin 6.0 g/dL Albumin/Globulin Ratio 0.4 (1.0-2.7) L Current Medications Medications (Trade) Dose Ordered Sig/Zohaib Route PRN Reason Start Time Stop Time Status Last Admin Dose Admin Acyclovir (Zovirax) 200 mg Q12HR ORAL 08/16/18 21:00 09/15/18 20:59 Acyclovir (Zovirax) 400 mg DAILYPRN PRN ORAL Give post HD on HD days 08/16/18 21:00 09/15/18 20:59 Al Hydroxide/Mg Hydroxide (Mylanta II) 30 ml Q6H PRN ORAL dyspepsia 08/16/18 03:30 09/15/18 03:29 Aspirin (Ecotrin) 81 mg DAILY ORAL 08/16/18 09:00 09/15/18 08:59 Aztreonam 1 gm/ Sodium Chloride 55 ml @ 110 mls/hr Q8H IVPB 08/16/18 11:00 08/23/18 10:59 Bisacodyl (Dulcolax) 10 mg HSPRN PRN RECTAL Constipation 08/16/18 03:30 09/15/18 03:29 Cinacalcet (Sensipar) 30 mg Q24HRS ORAL 08/16/18 18:00 09/15/18 08:59 Clonidine HCl (Catapres Tab) 0.1 mg Q8H PRN ORAL SBP >160 08/16/18 09:45 09/15/18 09:44 Clopidogrel Bisulfate (Plavix) 75 mg DAILY ORAL 08/17/18 09:00 09/16/18 08:59 Dextrose (Dextrose 50%) 25 ml Q30M PRN IV Hypoglycemia 08/16/18 03:30 09/15/18 03:29 Dextrose (Dextrose 50%) 50 ml Q30M PRN IV Hypoglycemia 08/16/18 03:30 09/15/18 03:29 Diphenhydramine HCl (Benadryl) 25 mg Q6H PRN ORAL Itching/Pruritis 08/16/18 03:30 09/15/18 03:29 Docusate Sodium (Colace) 100 mg EVERY 12 HOURS ORAL 08/16/18 09:00 09/15/18 08:59 08/16/18 09:20 Dolutegravir Sodium (Tivicay) 50 mg DAILY ORAL 08/16/18 09:00 09/15/18 08:59 UNV Emtricitabine (Emtriva) 200 mg DAILY ORAL 08/16/18 09:00 09/15/18 08:59 UNV Hydromorphone HCl (Dilaudid) 0.5 mg Q6H PRN IVP breakthrough 08/16/18 03:30 08/23/18 03:29 Lorazepam (Ativan) 1 mg Q4H PRN ORAL For Anxiety 08/16/18 03:30 08/23/18 03:29 Magnesium Hydroxide (Mom) 30 ml HSPRN PRN ORAL Constipation 08/16/18 03:30 09/15/18 03:29 Metoprolol Succinate (Toprol XL) 25 mg DAILY ORAL 08/16/18 09:00 09/15/18 08:59 Nateglinide (Starlix) 60 mg TID@0630,1130,1630 ORAL 08/16/18 06:30 09/15/18 06:29 Nitroglycerin (Ntg) 0.4 mg Q5M X 3 DOSES PRN SL Prn Chest Pain 08/16/18 03:30 09/15/18 03:29 Ondansetron HCl (Zofran) 4 mg Q6H PRN IVP Nausea & Vomiting 08/16/18 03:30 09/15/18 03:29 Oxycodone HCl (Roxicodone) 5 mg Q4H PRN ORAL For Pain 08/16/18 03:45 08/23/18 03:44 08/16/18 09:56 Sodium Chloride 550 ml @ 100 mls/hr Q5H30M IV 08/15/18 23:45 09/14/18 23:44 08/16/18 00:11 Temazepam (Restoril) 15 mg BEDTIME ORAL 08/16/18 21:00 08/23/18 20:59 Tenofovir Disoproxil Fumarate (Viread) 300 mg DAILY ORAL 08/16/18 09:00 09/15/18 08:59 Yesneia Garner MD Aug 16, 2018 14:38
[2018-08-16] MEDS ORDERED: Vancomycin 1.5gm Premix IVPB ONE (17:00)
--- NOTE | 2018-08-16 18:09 | NUR ---
CASE MANAGEMENT: REVIEW 63/M BIBA FROM HOME CC: PAIN IN HIS TOES 10/06 . PMHX HEPATITIS C AND HIV . DIALYSIS AT HOME SI: BACTEREMIA T 97.7 HR 76 RR 15 BP 127/20 SAT 100% ROOM AIR H/H 10.0/32.1 BUN 45 CR 6.0 BNP 8605 IS: NS IVF BOLUS X1 GENTAMICIN IV X1 PERCOCET 5/325 PO X1 MORPHINE IV X1 NORCO 5/325 PO X1 PATIENT ADMITTED TO TELEMETRY UNIT 08/15/2018 DCP: PATIENT IS FROM HOME
[2018-08-16] MEDS: Sensipar 30mg Tab ORAL SCH (18:21)
[2018-08-16] MEDS ORDERED: [UNRECOGNIZED DRUG - OTHER] IVPB ONE ×2 (19:30)
[2018-08-16] MEDS ORDERED: Vancomycin 1.5gm/D5W 275ml IVPB ONE ×2 (19:30)
[2018-08-16] MEDS ORDERED: VANCOMYCIN IVPB ONE ×2 (19:30)
--- NOTE | 2018-08-16 19:33 | History and Physical ---
History of Present Illness General Date patient seen: Aug 16, 2018 Time patient seen: 08:45 Reason for Hospitalization: General Complaint Present Illness HPI 63 y/o AA man with MMP s/p diabetic foot ulcer debridement at [facility]. Subsequent blood cultures were done at that time a day ago returned positive for a gram negative rods. The patient was advised to come to the hospital at this time. He is a dialysis patient and receiving amikacin and vancomycin while on dialysis. Previous wound cultures grew Escherichia coli and Enterobacter cloacae with various sensitivities. Post procedure yesterday, the patient had bleeding that was hard to control. This was finally controlled with Gelfoam. The patient is diabetic and his sugars have been difficult to control. He's only on oral medication. They've been as high as 300 recently. The patient is undergoing home dialysis without difficulty. She has a shunt in the left upper arm. The patient is complaining about pain in his toes. It's fleeting. Pain rated 6/10, jarring and aching. Radiates up leg to body when the pain occurs. Patient requires BIPAP at night. He does not make urine. Allergies: Coded Allergies: HEPARIN (Verified Allergy, Severe, low platelets, 06/11/14) SULFA (SULFONAMIDE ANTIBIOTICS) (Verified Allergy, Severe, nephro toxic, ) ACETAMINOPHEN (Verified Allergy, Unknown, 08/16/18) PREDNISONE (Verified Allergy, Unknown, 08/16/18) ZOLPIDEM (Verified Allergy, Unknown, 05/03/16) MEROPENEM (Verified Adverse Reaction, Intermediate, 04/01/16) Nausea and vomiting Uncoded Allergies: pork products (Allergy, Severe, rashes, 06/11/14) Medication History Scheduled Acyclovir* (Acyclovir*), 800 MG ORAL DAILY, (Reported) Acyclovir* (Zovirax*), 800 MG ORAL FIVE TIMES A DAY, (Reported) Ammonium Lactate (Ammonium Lactate), 385 GM TP BID, (Reported) Aspirin* (Aspir 81*), 81 MG ORAL DAILY, (Reported) Cefepime Hcl/D5w (Cefepime-Dextrose 1 Gm/50 Ml), 500 MG IVPB Q24H, (Reported) Cinacalcet* (Sensipar*), 30 MG ORAL DAILY, (Reported) Cinacalcet* (Sensipar*), 30 MG ORAL DAILY, (Reported) Clopidogrel Bisulfate* (Plavix*), 75 MG ORAL DAILY, (Reported) Clopidogrel Bisulfate* (Plavix*), 75 MG ORAL DAILY, (Reported) Dolutegravir Sodium (Tivicay), 50 MG ORAL DAILY, (Reported) Emtricitabine* (Emtriva*), 200 MG ORAL DAILY, (Reported) Epoetin Jeremiah (Epogen), 10,000 UNIT SUBQ 3XW, (Reported) Epoetin Jeremiah (Epogen), 10,000 UNIT SUBQ 3XW, (Reported) Ergocalciferol (Vitamin D2)* (Vitamin D*), 50,000 UNIT ORAL twice monthly, ( Reported) Fluconazole* (Diflucan*), 200 MG ORAL DAILY, (Reported) Folic Acid/Vitamin B Comp W-C (Renal Caps Softgel), 1 MG PO DAILY, (Reported) Lorazepam* (Lorazepam*), 0.5 MG ORAL EVERY 6 HOURS, (Reported) Metoprolol Succinate* (Toprol Xl*), 25 MG ORAL DAILY, (Reported) Metronidazole* (Flagyl*), 500 MG ORAL EVERY 8 HOURS, (Reported) Nateglinide* (Starlix*), 120 MG ORAL THREE TIMES A DAY, (Reported) Nateglinide* (Starlix*), 60 MG ORAL THREE TIMES A DAY, (Reported) Nelfinavir Mesylate (Viracept), 2 TAB PO BID, (Reported) Polyvinyl Alcohol/Povidone/Pf (Refresh Classic Eye Drops), 1 EACH OP DAILY, ( Reported) Propylene Glycol/Peg 400/Pf (Systane 0.3-0.4% Eye Drops), 1 EACH OP FOUR TIMES A DAY, (Reported) Sevelamer Hcl (Renagel), 4 TAB ORAL TID, (Reported) Sevelamer Hcl (Renagel), 800 MG ORAL THREE TIMES A DAY, (Reported) Temazepam (Temazepam*), 15 MG ORAL BEDTIME, (Reported) Tenofovir Disoproxil Fumarate* (Viread*), 300 MG ORAL q sat, (Reported) Tenofovir Disoproxil Fumarate* (Viread*), 300 MG ORAL DAILY, (Reported) Vancomycin Hcl/D5w (Vancomycin-D5w 1 G/250 Ml), 750 MG IVPB dialysis days , ( Reported) Vancomycin/0.9% Sod Chloride (Vancomycin-0.9% Nacl 1 G/250), 1 GM IV EVERY OTHER DAY, (Reported) Scheduled PRN Clonidine Hcl* (Catapres*), 0.1 MG ORAL EVERY 8 HOURS PRN for For High Blood Pressure, (Reported) Oxycodone Hcl Ir* (Roxicodone Ir*), 5 MG ORAL Q4H PRN for For Pain, (Reported) Miscellaneous Medications Amikacin Sulfate (Amikacin Sulfate*), 500 MG IJ, (Reported) Calcitriol (Calcitriol), 0.5 MCG PO, (Reported) Calcitriol (Calcitriol*), 1 MCG IV, (Reported) Chlorhexidine Gluconate (Peridex), 15 ML MM, (Reported) Emtricitabine* (Emtriva*), 200 MG ORAL, (Reported) Epoetin Jeremiah (Epogen), 20,000 UNIT SUBQ, (Reported) Eyelid Cleanser Combination #9 (Systane), 1 EACH TP, (Reported) Ipratropium Whiting (Atrovent Hfa), 12.9 GM IH, (Reported) Patient History History Provided By: Patient, Significant Other, Medical Record Healthcare decision maker Michael yang Resuscitation status Full Code Advanced Directive on File Past Medical/Surgical History Past Medical/Surgical History: (1) Diabetes mellitus out of control (2) PVD (peripheral vascular disease) (3) COPD (chronic obstructive pulmonary disease) (4) HIV disease (5) ESRD (end stage renal disease) (6) HTN (hypertension) (7) Diabetic foot ulcer (8) CAD (coronary artery disease) (9) Hepatitis C (10) Osteomyelitis Family History Family History: Patient reports no known family medical history. Social History Social History: (1) No significant social history Review of Systems ROS Narrative CONSTITUTIONAL: No weight loss, fever, chills, weakness or fatigue. HEENT: Eyes: No visual loss, blurred vision, double vision or yellow sclerae. Ears, Nose, Throat: No hearing loss, sneezing, congestion, runny nose or sore throat. SKIN: No rash or itching. CARDIOVASCULAR: No chest pain, chest pressure or chest discomfort. No palpitations or edema. RESPIRATORY: No shortness of breath, cough or sputum. GASTROINTESTINAL: No anorexia, nausea, vomiting or diarrhea. No abdominal pain or blood. NEUROLOGICAL: No headache, dizziness, syncope, paralysis, ataxia, numbness or tingling in the extremities. No change in bowel or bladder control. MUSCULOSKELETAL: No muscle, back pain, joint pain or stiffness. HEMATOLOGIC: No anemia, bleeding or bruising. LYMPHATICS: No enlarged nodes. No history of splenectomy. PSYCHIATRIC: No history of depression or anxiety. ENDOCRINOLOGIC: No reports of sweating, cold or heat intolerance. No polyuria or polydipsia. ALLERGIES: No history of asthma, hives, eczema or rhinitis. Physical Exam Physical Exam Narrative General: alert, cooperative, no distress, appears stated age Head: normocephalic, without obvious abnormality, atraumatic Eyes: conjunctivae/corneas clear. PERRL, EOM's intact Throat: lips, mucosa, and tongue normal. MMM Neck: supple, symmetrical, trachea midline, and no JVD Lungs: clear to auscultation bilaterally Heart: regular rate and rhythm, S1, S2 normal, no murmur, click, rub or gallop Abdomen: soft, non-tender, non-distended, bowel sounds normal; no masses or organomegaly Extremities: both lower extremities dressed Pulses: 2+ and symmetric Skin: skin color, texture, turgor normal; no rashes or lesions Neurologic: grossly normal, no focal deficits Last 24 Hour Vital Signs Date Time Temp Pulse Resp B/P (MAP) Pulse Ox O2 Delivery O2 Flow Rate FiO2 08/16/18 17:30 76 18 98 08/16/18 16:00 63 08/16/18 16:00 98.5 60 15 143/39 (73) 97 08/16/18 16:00 25 08/16/18 15:27 70 16 97 08/16/18 13:29 72 16 98 08/16/18 12:00 25 08/16/18 12:00 98.4 67 16 122/50 (74) 97 08/16/18 12:00 65 08/16/18 11:20 69 16 98 08/16/18 09:25 69 16 97 08/16/18 09:00 Room Air 08/16/18 08:00 98.0 60 15 115/37 (63) 97 08/16/18 08:00 25 08/16/18 08:00 58 4/20/19 07:17 67 16 95 08/16/18 05:49 58 14 99 Facial 30 08/16/18 04:00 97.3 57 18 132/50 (77) 99 08/16/18 04:00 54 08/16/18 04:00 25 08/16/18 03:44 Room Air 08/16/18 02:30 97.2 58 18 155/59 (91) 96 08/16/18 02:09 58 08/16/18 02:00 97.7 86 15 127/20 100 Room Air 08/16/18 01:20 97.7 86 15 127/20 100 Room Air 08/16/18 01:19 76 15 Room Air 08/15/18 23:33 97.7 76 15 127/20 100 Room Air Intake and Output 08/15/18 08/16/18 19:00 07:00 Intake Total 0 ml Output Total 0 ml Balance 0 ml Intake Oral 0 ml Output Urine Total 0 ml # Bowel Movements 1 Laboratory Tests Test 08/15/18 23:45 White Blood Count 6.8 K/UL (4.8-10.8) Red Blood Count 3.72 M/UL (4.70-6.10) L Hemoglobin 10.0 G/DL (14.2-18.0) L Hematocrit 32.1 % (42.0-52.0) L Mean Corpuscular Volume 86 FL (80-99) Mean Corpuscular Hemoglobin 26.9 PG (27.0-31.0) L Mean Corpuscular Hemoglobin Concent 31.2 G/DL (32.0-36.0) L Red Cell Distribution Width 18.5 % (11.6-14.8) H Platelet Count 353 K/UL (150-450) Mean Platelet Volume 6.2 FL (6.5-10.1) L Neutrophils (%) (Auto) 57.3 % (45.0-75.0) Lymphocytes (%) (Auto) 27.4 % (20.0-45.0) Monocytes (%) (Auto) 12.2 % (1.0-10.0) H Eosinophils (%) (Auto) 2.2 % (0.0-3.0) Basophils (%) (Auto) 0.9 % (0.0-2.0) Erythrocyte Sedimentation Rate 111 MM/HR (0-20) H Prothrombin Time 12.1 SEC (9.30-11.50) H Prothromb Time International Ratio 1.2 (0.9-1.1) H Activated Partial Thromboplast Time 36 SEC (23-33) H Sodium Level 137 MMOL/L (136-145) Potassium Level 3.9 MMOL/L (3.5-5.1) Chloride Level 99 MMOL/L (98-107) Carbon Dioxide Level 31 MMOL/L (21-32) Anion Gap 7 mmol/L (5-15) Blood Urea Nitrogen 45 mg/dL (7-18) H Creatinine 6.0 MG/DL (0.55-1.30) H Estimat Glomerular Filtration Rate 11.5 mL/min (>60) Glucose Level 203 MG/DL (74-106) H Lactic Acid Level 1.30 mmol/L (0.4-2.0) Calcium Level 9.4 MG/DL (8.5-10.1) Magnesium Level 2.3 MG/DL (1.8-2.4) Total Bilirubin 0.4 MG/DL (0.2-1.0) Aspartate Amino Transf (AST/SGOT) 40 U/L (15-37) H Alanine Aminotransferase (ALT/SGPT) 35 U/L (12-78) Alkaline Phosphatase 181 U/L (46-116) H Total Creatine Kinase 70 U/L (26-308) Troponin I 0.055 ng/mL (0.000-0.056) C-Reactive Protein, Quantitative 7.4 mg/dL (0.00-0.90) H Pro-B-Type Natriuretic Peptide 8605 pg/mL (0-125) H Total Protein 8.5 G/DL (6.4-8.2) H Albumin 2.5 G/DL (3.4-5.0) L Globulin 6.0 g/dL Albumin/Globulin Ratio 0.4 (1.0-2.7) L Microbiology Date/Time Source Procedure Growth Status 08/16/18 01:00 Rectum Received Height (Feet): 5 Height (Inches): 6.00 Weight (Pounds): 150 Medications Current Medications Medications (Trade) Dose Ordered Sig/Zohaib Route PRN Reason Start Time Stop Time Status Last Admin Dose Admin Acyclovir (Zovirax) 200 mg Q12HR ORAL 08/16/18 21:00 5/20/19 20:59 Acyclovir (Zovirax) 400 mg DAILYPRN PRN ORAL Give post HD on HD days 08/16/18 21:00 09/15/18 20:59 Al Hydroxide/Mg Hydroxide (Mylanta II) 30 ml Q6H PRN ORAL dyspepsia 08/16/18 03:30 09/15/18 03:29 Aspirin (Ecotrin) 81 mg DAILY ORAL 08/16/18 09:00 09/15/18 08:59 Aztreonam 0.5 gm/ Sodium Chloride 55 ml @ 110 mls/hr Q12HR IVPB 08/17/18 09:00 08/24/18 08:59 Aztreonam 1 gm/ Sodium Chloride 55 ml @ 110 mls/hr Q8H IVPB 08/16/18 11:00 08/16/18 20:00 08/16/18 18:21 Bisacodyl (Dulcolax) 10 mg HSPRN PRN RECTAL Constipation 08/16/18 03:30 09/15/18 03:29 Cinacalcet (Sensipar) 30 mg Q24HRS ORAL 08/16/18 18:00 09/15/18 08:59 08/16/18 18:21 Clonidine HCl (Catapres Tab) 0.1 mg Q8H PRN ORAL SBP >160 08/16/18 09:45 09/15/18 09:44 Clopidogrel Bisulfate (Plavix) 75 mg DAILY ORAL 08/17/18 09:00 09/16/18 08:59 Dextrose (Dextrose 50%) 25 ml Q30M PRN IV Hypoglycemia 08/16/18 03:30 09/15/18 03:29 Dextrose (Dextrose 50%) 50 ml Q30M PRN IV Hypoglycemia 08/16/18 03:30 09/15/18 03:29 Diphenhydramine HCl (Benadryl) 25 mg Q6H PRN ORAL Itching/Pruritis 08/16/18 03:30 09/15/18 03:29 Docusate Sodium (Colace) 100 mg EVERY 12 HOURS ORAL 08/16/18 09:00 09/15/18 08:59 08/16/18 09:20 Dolutegravir Sodium (Tivicay) 50 mg DAILY ORAL 08/16/18 09:00 09/15/18 08:59 UNV Emtricitabine (Emtriva) 200 mg DAILY ORAL 08/16/18 09:00 09/15/18 08:59 UNV Gentamicin Protocol (Gentamicin pharmacy to dose) 1 ea DAILY PRN MISC Per rx protocol 08/16/18 14:15 09/15/18 14:14 Hydromorphone HCl (Dilaudid) 0.5 mg Q6H PRN IVP breakthrough 08/16/18 03:30 08/23/18 03:29 Lorazepam (Ativan) 1 mg Q4H PRN ORAL For Anxiety 08/16/18 03:30 08/23/18 03:29 Magnesium Hydroxide (Mom) 30 ml HSPRN PRN ORAL Constipation 08/16/18 03:30 09/15/18 03:29 Metoprolol Succinate (Toprol XL) 25 mg DAILY ORAL 08/16/18 09:00 09/15/18 08:59 Metronidazole 100 ml @ 100 mls/hr Q8HR IVPB 08/16/18 22:00 08/23/18 21:59 Nateglinide (Starlix) 60 mg TID@0630,1130,1630 ORAL 08/16/18 06:30 09/15/18 06:29 08/16/18 18:21 Nitroglycerin (Ntg) 0.4 mg Q5M X 3 DOSES PRN SL Prn Chest Pain 08/16/18 03:30 09/15/18 03:29 Ondansetron HCl (Zofran) 4 mg Q6H PRN IVP Nausea & Vomiting 08/16/18 03:30 09/15/18 03:29 Oxycodone HCl (Roxicodone) 5 mg Q4H PRN ORAL For Pain 08/16/18 03:45 08/23/18 03:44 08/16/18 09:56 Temazepam (Restoril) 15 mg BEDTIME ORAL 08/16/18 21:00 08/23/18 20:59 Tenofovir Disoproxil Fumarate (Viread) 300 mg DAILY ORAL 08/16/18 09:00 09/15/18 08:59 UNV Vancomycin HCl (Vanco rx to dose) 1 ea DAILY PRN MISC Per rx protocol 08/16/18 14:15 09/15/18 14:14 Vancomycin HCl 1.5 gm/Sodium Chloride 275 ml @ 137.5 mls/ hr ONCE ONCE IVPB 08/16/18 19:30 08/16/18 21:29 Assessment/Plan Assessment: #Sepsis due to Gram neg aron bacteremia # Diabetic foot ulcer s/p multiple debridements #Right foot infected wound/ulcer with necrosis/gangrene and ? osteomyelitis - Podiatry eval - Apprec ID recs, cont broad spectrum IV abx - f/u blood cultures #ESRD on HD #Anemia due to ESRD - Apprec Nephrology consult - HD per Renal #HIV - Cont HIV medications - Obtain prior T cell count and viral load - Apprec ID assistance #Uncontrolled type 2DM with renal complications - Cont PO DM meds per pt , declines insulin sliding scale João Smart MD Aug 16, 2018 19:33
--- NOTE | 2018-08-16 19:39 | NUR ---
HAND-OFF: Report given to CHUY Parrish. Plan of care endorsed
--- NOTE | 2018-08-16 20:36 | NUR ---
NURSE NOTES: Received pt from CHUY Shepard. Pt awake, alert, and talkative. Bed in lowest position. Call light within reach. at bedside. Foot dressing being changed. Will continue to monitor.
[2018-08-16] MEDS ORDERED: Acyclovir 200mg Cap ORAL PRN (21:00)
[2018-08-16] MEDS: Acyclovir 200mg Cap ORAL SCH (21:00)
--- NOTE | 2018-08-16 22:30 | Consultation ---
DATE OF CONSULTATION: 08/16/2018 INFECTIOUS DISEASE CONSULTATION CONSULTING PHYSICIAN: Yesenia Conway M.D. ATTENDING PHYSICIAN: João Smart M.D. REFERRING PHYSICIAN: João Smart M.D. REASON FOR CONSULTATION: Gram-negative bacteremia, sepsis, infected right foot wound, and history of HIV. CHIEF COMPLAINT: The patient's chief complaint coming in to the hospital is Gram-negative bacteremia and sepsis. HISTORY OF PRESENT ILLNESS: This is a 63-year-old male, who has history of diabetic foot ulcers. Most recently, his right foot has necrotic wounds and cultures in the outpatient setting have shown gram negatives I believe Enterobacter and also E. coli. I saw the patient prior to this admission at Dr. Chinchilla's office. At that time, the patient's only let me look at the pictures of the foot, not the foot itself. The picture showed an infected necrotic wounds, it is unclear if he has gangrene too. At that time, the patient because of cultures in the outpatient setting, he was on amikacin, vancomycin, and Flagyl. I recommended the patient to follow up with Podiatry and Vascular Surgery. Of note, the patient also had left arm swelling where he has a left arm I believe a fistula for his dialysis. He does not have a central line for dialysis. Cultures in the outpatient setting were obtained, ordered by I believe outpatient physicians and the patient had Gram-negative rods. Case was discussed with Dr. Chinchilla, who told me about these results. I told for the patient to come to the hospital immediately and he told the patient and his to come to the emergency room. He is currently at [facility]. I discussed the case with the ER physician last night and decided on to continue to place the patient on gentamicin because of the Enterobacter and E. coli per discussion with the ER physician were sensitive to gentamicin. The patient currently is on aztreonam, Flagyl, vancomycin, and gentamicin for the right foot infected wound and ulcers and the Gram-negative bacteremia. The identification of the Gram-negative aron and blood is pending at this time. The patient will be continued on antibiotics pending full workup. Cultures here are pending. Wound and blood cultures have been obtained. REVIEW OF SYSTEMS: CONSTITUTIONAL: The patient has generalized fatigue. He is a hemodialysis patient. He does not have a central line. He has no Jordan. He has no fevers currently. HEAD AND NECK: No head pain, neck pain, thrush, or dysphagia. No sinus tenderness. No neck stiffness. CARDIAC: No chest pain or palpitations. GASTROINTESTINAL: No nausea, vomiting, abdominal pain, or diarrhea. GENITOURINARY: He has no Jordan. He is on dialysis. PULMONARY: No congestion, shortness of breath, hemoptysis, or secretions. SKIN: He has no rash or itching. EXTREMITIES: He has right foot pain. NEUROLOGIC: No seizures. PAST MEDICAL HISTORY: The patient's past medical history includes history of the following. The patient has a past medical history of peripheral vascular disease. I believe he has a left partial foot amputation, TMA. He has a history of HIV. He is on anti-retroviral therapy, unclear what his T-cell or CD4 count is. He is being followed by Dr. Chinchilla for that in the outpatient setting. He has end-stage renal disease, hemodialysis, anemia, CVA, weakness, seizures, diabetes, hypertension, anemia, TIA, hepatitis C, and obstructive sleep apnea on BiPAP. ALLERGIES: Include acetaminophen, heparin, meropenem, prednisone, sulfa, zolpidem, products. Of note, with regards to meropenem discussed with the , she says he gets intractable vomiting with that. SOCIAL HISTORY: Negative for smoking, alcohol, or drug abuse. FAMILY HISTORY: Noncontributory. MEDICATIONS: He is currently on the following medications. Upon reviewing the MAR, he is on Plavix, Restoril, Zovirax, I think that is the suppression. He is on Sensipar, aztreonam, vancomycin, gentamicin, Flagyl, clonidine, Colace, and Ecotrin. He is on aspirin. He is on Tivicay. He is on Emtriva or emtricitabine. He is on tenofovir or Viread and metoprolol. He is on Starlix, oxycodone, hydromorphone, bisacodyl, magnesium hydroxide, Zofran, lorazepam, and nitroglycerin p.r.n. Outside medications were noted and reconciliated. PHYSICAL EXAMINATION: VITAL SIGNS: Temperature is 98.4, pulse rate 67, respiratory rate 16, temperature 98.4, blood pressure 122/50, and saturation 97%. GENERAL: Alert and responsive, in no acute distress. HEAD AND NECK: Oral exam, no thrush. Eye exam, no icterus. Neck is supple. No JVD. Normocephalic. HEART: Regular. No obvious gallop or murmur. No friction rub. LUNGS: Clear bilaterally. No rhonchi or rales. ABDOMEN: Soft. Positive bowel sounds. Nontender. SKIN: No rash. MUSCULOSKELETAL: No effusion. PERIPHERAL VASCULAR: His left foot and right foot are covered. I talked with the patient's at length and the patient and she is refusing for me to examine the right foot. I reviewed the pictures. It looks like he has necrotic wounds of the right foot and ulcers and also looks like he could have some gangrenous changes, but difficult to tell because the patient's will not let me evaluate the foot at this time because she does not want me to evaluate and is not allowing me to evaluate either at this time. NEUROLOGIC: Intact. He is alert and oriented x3. Nonfocal. LINES: Line sites without phlebitis. GENITOURINARY: No Jordan. No CVA tenderness. The patient is on hemodialysis. He does have a left arm AV fistula. It is unclear if it is a graft, but I believe it is a fistula on discussion with . He has swelling of the left arm, but there is no evidence of cellulitis. LABORATORY AND DIAGNOSTIC DATA: Laboratory data is as follows. Creatinine is 6.0. His alkaline phosphatase is 181. LFTs were noted. Sodium 137. His white count is 6.8, hemoglobin 10.0, and platelet count is 353,000. Blood cultures here are pending. Outpatient blood cultures were Gram-negative rods, identification is pending. Previous cultures of the right foot wound included E. coli, Enterobacter, but I believe they are both sensitive to gentamicin and discussed with ER staff at [place]. I do not have all those cultures in front of me. We will try to get those. Chest x-ray shows atelectasis only. ASSESSMENT AND PLAN: 1. The patient has infected right foot wound with infected wounds and ulcers with necrotic changes, possible gangrene upon looking to pictures. The patient's will not let me evaluate the right foot. At this time, the patient likely have a polymicrobial infection. We do know he has Gram-negative rods in the blood. We will continue aztreonam and gentamicin. We will continue with vancomycin and Flagyl. The patient is also seen by Podiatry, but again there was a refusal of exam by the patient of the right foot by Podiatry. X-rays that have been ordered of the right foot were reviewed. We will check cultures here including wound and blood cultures. Continue antibiotics vanco, aztreonam, gentamicin, and Flagyl for now pending workup. Get outside culture results. Case was also discussed with Dr. Chinchilla yesterday and the patient and the patient's . We also discussed with the RN. Most likely, source is the foot and may need debridement or amputation depending on workup. I would also consider some Vascular Surgery evaluation for left arm swelling around the hemodialysis access site, this could be a fistula I believe. 2. Peripheral vascular disease. He has history of I believe a left transmetatarsal amputation. Again, the patient's does not let me examine the feet. 3. The patient has HIV. Treatment per Dr. Chinchilla and can follow up with Dr. Chinchilla for those results. He just saw him for the HIV. 4. End-stage renal disease, on hemodialysis. 5. Anemia. 6. CVA. 7. Seizures. 8. Weakness. 9. Diabetes. 10. Hypertension. 11. Anemia. 12. TIA. 13. Hepatitis C. 14. Obstructive sleep apnea. 15. BiPAP. 16. Allergies to acetaminophen, heparin, meropenem, prednisone, sulfa, zolpidem, products. 17. Social history is negative. 18. Family history is noncontributory. 19. MAR was noted. 20. Case was discussed with RN. 21. Continue treatment per primary consultants. 22. I discussed with the patient's at length. I told her that she must let us do exam especially the assistant softball coach to evaluate the foot because he has a life-threatening Gram-negative bacteremia. We will need to address most likely source of sepsis. Yesenia Conway M.D. DR: MESSI JOB#: [id number] CC:
[2018-08-17] VITALS (8 sets, daily range): BP systolic 91–172; BP diastolic 31–84
--- NOTE | 2018-08-17 01:45 | Consultation ---
DATE OF CONSULTATION: 08/16/2018 NEPHROLOGY CONSULTATION CONSULTING PHYSICIAN: Janis Olivo M.D. REFERRING PHYSICIAN: João Smart M.D. REASON FOR CONSULTATION: End-stage renal disease, need for dialysis. HISTORY OF PRESENT ILLNESS: The patient is an unfortunate 63-year-old male with past medical history significant for history of end-stage renal disease, anemia of chronic kidney disease, renal osteodystrophy, hypertension, at home dialysis including basically 5 days a week with home dialysis. He has a history of extensive peripheral vascular disease, which has had multiple procedures and amputations . The patient admitted that given the for foot ulcer, the patient's culture was obtained. Cultures grew Gram-negative rods. The patient consequently received a call to go to the emergency room. Currently, the patient is taking vancomycin and amikacin with his dialysis. He denies having any chest pain or shortness of breath. Denies having any fever or chills. The current dialysis is being conducted through the AV fistula in the left upper extremity, which is swollen. PAST MEDICAL HISTORY: Including : 1. History of hypertension. 2. History of end-stage renal disease. 3. History of anemia of chronic kidney disease. 4. Renal osteodystrophy. 5. Diabetes. 6. Peripheral vascular disease. 7. History of diabetic ulcer. 8. History of CVA. 9. History of TIA. 10. History of dyslipidemia. ALLERGIES: He is allergic to, 1. Heparin. 2. Sulfa. 3. Acetaminophen. 4. Ambien. 5. Meropenem. 6. Prednisone. SOCIAL HISTORY: He lives at home with his , who is the main caregiver. There is no current history of tobacco, alcohol, or drug use. FAMILY HISTORY: Noncontributory. REVIEW OF SYSTEMS: GENERAL: He denies any fever, chills, or night sweats. HEAD AND NECK: Denies any dysphagia, odynophagia, blurry vision, headache, or neck stiffness. PULMONARY: No shortness of breath, cough, or sputum. CARDIOVASCULAR: Denies any chest pain or palpitations. GASTROINTESTINAL: Denies any nausea, vomiting, diarrhea, hematemesis, or hematochezia. GENITOURINARY: Denies any dysuria, frequency, or hematuria. MUSCULOSKELETAL: Denies any weakness or numbness. He has had a right foot ulceration and this is currently encrusting. PHYSICAL EXAMINATION: VITAL SIGNS: The patient had a temperature of 97, blood pressure 127/70, pulse rate of 76, and respiratory rate of 18. HEAD AND NECK: No JVP. No LAD. No thyromegaly. Extraocular movements intact. Pupils are reactive to light and accommodation. LUNGS: Clear to auscultation. CARDIAC: Regular rate and rhythm. S1 and S2 is normal. No rub. ABDOMEN: Soft, nontender, and nondistended. EXTREMITIES: Left upper extremity significantly swollen with . LABORATORY DATA: Chemistry revealed sodium 137, potassium 3.9, chloride 99, bicarb 31, BUN of 45, creatinine of 6, and glucose of 203. Calcium of 9.4. AST of 40 and ALT of 35. Alkaline phosphatase of 181. Albumin of 8.5. CBC revealed WBC count of 6.8, hemoglobin of 10, hematocrit of 32, and platelet count of 363,000. ASSESSMENT: 1. Sepsis and Gram-negative bacteremia. 2. Diabetic foot ulcer. 3. Osteomyelitis. 4. Hypertension. 5. End-stage renal disease. 6. Anemia of chronic kidney disease. 7. Renal osteodystrophy. PLAN: Plan for the patient is to receive dialysis today. Check the calcium, phosphorous, and PTH for evaluation of renal osteodystrophy. Epogen for anemia of chronic kidney disease. Check the iron panel. Replace the electrolytes as needed. Again, I would like to thank Dr. Smart for allowing me to participate in the care of this patient. Janis Olivo M.D. DR: JAG JOB#: [id number] CC:
[2018-08-17 05:49] LABS: BASOPHILS % (AUTO) 2.3 % (0.0-2.0); EOSINOPHILS % (AUTO) 1.9 % (0.0-3.0); HEMATOCRIT 31.1 % (42.0-52.0); HEMOGLOBIN 9.7 G/DL (14.2-18.0); LYMPHOCYTES % (AUTO) 23.8 % (20.0-45.0); MEAN CORPUSCULAR VOLUME 87 FL (80-99); MONOCYTES % (AUTO) 11.9 % (1.0-10.0); NEUTROPHILS % (AUTO) 60.1 % (45.0-75.0); PLATELET COUNT 357 K/UL (150-450); RED BLOOD COUNT 3.58 M/UL (4.70-6.10); WHITE BLOOD COUNT 6.7 K/UL (4.8-10.8)
[2018-08-17 06:09] LABS: ANION GAP 8 mmol/L (5-15); BLOOD UREA NITROGEN 43 mg/dL (7-18); CALCIUM 8.9 MG/DL (8.5-10.1); CARBON DIOXIDE 31 MMOL/L (21-32); CHLORIDE 101 MMOL/L (98-107); CHOLESTEROL 77 MG/DL (< 200); CREATININE 5.5 MG/DL (0.55-1.30); HDL CHOLESTEROL 44 MG/DL (40-60); PHOSPHORUS 3.8 MG/DL (2.5-4.9); POTASSIUM 3.8 MMOL/L (3.5-5.1); SODIUM 140 MMOL/L (136-145); TRIGLYCERIDES 62 MG/DL (30-150)
[2018-08-17] MEDS: Nateglinide 60mg tab ORAL SCH ×3 (06:30→17:27)
[2018-08-17] MEDS ORDERED: Aztreonam Inj 0.5 GM in NS 55 ML IVPB SCH (06:30)
--- NOTE | 2018-08-17 07:43 | NUR ---
HAND-OFF: Report given to CHUY Quiñones. Pt stable.
--- NOTE | 2018-08-17 07:43 | NUR ---
NURSE NOTES: Received report from CHUY Schultz. Pt is sitting up in bed having breakfast. No distress noted. Bed is in lowest position, side rails up X2, and call light is within reach. Will continue to monitor.
--- NOTE | 2018-08-17 08:56 | Podiatric Progress Note ---
Assessment/Plan Patient Lloyd Grigsby is a 63 year old male who was admitted on Aug 16, 2018 at 00:15 with Assessment/Plan A: Right foot and lower leg multiple ulcerations, Right foot dry gangrene Left foot heel ulceration HIV Hep C HTN DM ESRD on HD P: - Pt seen and evaluated. - Discuss findings with patient. - Temp, 98.7 - WBC, 6.7 - B/L XR report pending. - Cont IV ABx, HIV and Hep C Tx per ID. Will follow recs. - Wound and blood Cx pending. - Cont DM Tx per primary team. - Cont B/L wound care dressing. - No acute surgical intervention at this time. - Will correspond with pt regarding treatment. - Podiatry will cont to monitor. Subjective Reason for consult Right foot infected diabetic ulcer with dry gangrene. Allergies: Coded Allergies: HEPARIN (Verified Allergy, Severe, low platelets, 06/11/14) SULFA (SULFONAMIDE ANTIBIOTICS) (Verified Allergy, Severe, nephro toxic, ) ACETAMINOPHEN (Verified Allergy, Unknown, 08/16/18) PREDNISONE (Verified Allergy, Unknown, 08/16/18) ZOLPIDEM (Verified Allergy, Unknown, 05/03/16) MEROPENEM (Verified Adverse Reaction, Intermediate, 04/01/16) Nausea and vomiting Uncoded Allergies: pork products (Allergy, Severe, rashes, 06/11/14) Subjective S: Seen patient bedside with nursing staff. Spoke to patient over the phone who provides HPI, states he has had multiple debridements, partial calcectomy, skin graft application. He has infected ulcer and was brought to [place] for IV abx and further treatment. Pt denies any recent constitutional symptoms. Objective Exam Last 24 Hour Vital Signs Date Time Temp Pulse Resp B/P (MAP) Pulse Ox O2 Delivery O2 Flow Rate FiO2 08/17/18 08:08 98.7 59 18 100/31 (54) 98 08/17/18 05:10 66 16 100 Full Face 30 08/17/18 04:00 56 08/17/18 04:00 25 08/17/18 04:00 98.3 59 20 128/45 (72) 100 08/17/18 03:07 62 21 100 Full Face 30 08/17/18 01:07 58 18 100 Full Face 30 08/17/18 00:00 64 08/17/18 00:00 98.5 66 20 124/36 (65) 100 08/16/18 22:53 58 22 99 Full Face 30 08/16/18 21:28 62 22 96 Full Face 30 08/16/18 21:00 Room Air 08/16/18 20:00 98.9 68 20 104/29 (54) 98 08/16/18 20:00 25 08/16/18 20:00 63 08/16/18 17:30 76 18 98 08/16/18 16:00 63 08/16/18 16:00 98.5 60 15 143/39 (73) 97 08/16/18 16:00 25 08/16/18 15:27 70 16 97 08/16/18 13:29 72 16 98 08/16/18 12:00 25 08/16/18 12:00 98.4 67 16 122/50 (74) 97 08/16/18 12:00 65 08/16/18 11:20 69 16 98 08/16/18 09:25 69 16 97 08/16/18 09:00 Room Air Laboratory Tests Test 08/17/18 04:20 White Blood Count 6.7 K/UL (4.8-10.8) Red Blood Count 3.58 M/UL (4.70-6.10) L Hemoglobin 9.7 G/DL (14.2-18.0) L Hematocrit 31.1 % (42.0-52.0) L Mean Corpuscular Volume 87 FL (80-99) Mean Corpuscular Hemoglobin 27.0 PG (27.0-31.0) Mean Corpuscular Hemoglobin Concent 31.0 G/DL (32.0-36.0) L Red Cell Distribution Width 18.0 % (11.6-14.8) H Platelet Count 357 K/UL (150-450) Mean Platelet Volume 6.3 FL (6.5-10.1) L Neutrophils (%) (Auto) 60.1 % (45.0-75.0) Lymphocytes (%) (Auto) 23.8 % (20.0-45.0) Monocytes (%) (Auto) 11.9 % (1.0-10.0) H Eosinophils (%) (Auto) 1.9 % (0.0-3.0) Basophils (%) (Auto) 2.3 % (0.0-2.0) H Sodium Level 140 MMOL/L (136-145) Potassium Level 3.8 MMOL/L (3.5-5.1) Chloride Level 101 MMOL/L (98-107) Carbon Dioxide Level 31 MMOL/L (21-32) Anion Gap 8 mmol/L (5-15) Blood Urea Nitrogen 43 mg/dL (7-18) H Creatinine 5.5 MG/DL (0.55-1.30) H Estimat Glomerular Filtration Rate 12.7 mL/min (>60) Glucose Level 136 MG/DL (74-106) H Hemoglobin A1c 7.5 % (4.3-6.0) H Calcium Level 8.9 MG/DL (8.5-10.1) Calcium (Send out) Pending Phosphorus Level 3.8 MG/DL (2.5-4.9) Magnesium Level 2.1 MG/DL (1.8-2.4) Triglycerides Level 62 MG/DL (30-150) Cholesterol Level 77 MG/DL (< 200) LDL Cholesterol 24 mg/dL (<100) HDL Cholesterol 44 MG/DL (40-60) Cholesterol/HDL Ratio 1.8 (3.3-4.4) L Parathyroid Hormone (Intact) Pending Random Gentamicin Level 3.7 ug/mL Microbiology Date/Time Source Procedure Growth Status 08/16/18 00:10 Blood Blood Culture - Preliminary NO GROWTH AFTER 24 HOURS Resulted 08/16/18 01:00 Rectum Received Exam Narrative Focused B/L LE exam: Right foot: Pulses 0/4 DP/PT, normal temp differential, plantar heel ulceration: approx 2.5 x 5 cm, with -granular wound base noted to subQ, no active purulent drainage, elmer-wound margins WNL. medial 1st MPJ: necrotic tissue is noted no active purulent drainage, elmer- wound margins WNL. lateral RF ulceration: extending dorsal MF, with fibro-granular wound base, with minimal purulent drainage, necrotic tissue extending dorsally to third digit and plantarly, minimal mal odor. Right leg: lateral distal lower leg ulceration is noted. approx 3.5 x 2.5 cm, with fibro-granular wound base with overlying stable eschar noted to subQ, no active purulent drainage, elmer-wound margins WNL. Left foot: Pulses +1/4 DP/PT, normal temp differential, lateral heel ulceration is noted, approx 2.5 x 2.5 cm, with fibro-granular wound base noted to subQ, no active purulent drainage, elmer-wound margins WNL. Germán Campbell DPM Aug 17, 2018 08:56
[2018-08-17] MEDS: Dolutegravir Sodium 50mg tab ORAL SCH (09:00)
[2018-08-17] MEDS: Aspirin EC 81mg tab ORAL SCH ×2 (09:00→09:41)
[2018-08-17] MEDS: Acyclovir 200mg Cap ORAL SCH ×3 (09:00→21:00)
[2018-08-17] MEDS: Docusate 100mg cap ORAL SCH ×3 (09:00→21:00)
[2018-08-17] MEDS: Metoprolol Succinate XL 25mg tab ORAL SCH (09:00)
[2018-08-17] MEDS: Aztreonam Inj 0.5 GM in NS 55 ML IVPB SCH ×2 (09:43→21:04)
[2018-08-17] MEDS: oxyCODONE 5mg IR tab ORAL PRN (09:43)
--- NOTE | 2018-08-17 09:56 | NUR ---
NURSE NOTES: Patient stated he would take all AM meds since we had gone over them with his . He also requested a pain medication. Once the medication was scanned, he requested to take pain medication by itself before the other medications. Once i gave him the other meds, he disposed of all the meds in his brown bag, assuming that I would not see. I asked him why he threw them into his bag and he stated "I am waiting for my ". I explained to him that he can not say he is going to take medication and dispose of them. I asked him to please let me know if he does not want to take them before hand. Pt verbalized understanding and agreed. Will continue to monitor. Pt did accept the antibiotic and pain medication. Nothing else.
--- NOTE | 2018-08-17 11:29 | NUR ---
NURSE NOTES: Pt asked for a turkey sandwich. Order was delivered from cafe and given to the pt.
--- NOTE | 2018-08-17 15:39 | NUR ---
PT Note PT keon completed, treatment initiated. Patient was cooperative and motivated. He was able to sit at the EOB and stand on the LLE, NWB on the RLE. Pt needs PT to increase his muscle strength and ROM to improve his safety in mobility. Addendum: 08/17/18 at 1540 by JONATHAN BEY PT Amended: Links added.
--- NOTE | 2018-08-17 17:22 | General Progress Note ---
Assessment/Plan Assessment: #Sepsis due to Gram neg aron bacteremia # Diabetic foot ulcer s/p multiple debridements #Right foot infected wound/ulcer with necrosis/gangrene and ? osteomyelitis - Podiatry eval noted, no acute surgical intervention recommended at this time - Apprec ID recs, cont broad spectrum IV abx - f/u blood cultures #ESRD on HD #Anemia due to ESRD - Apprec Nephrology consult - HD per Renal - May need vascular surg consult to address AV shunt #HIV - Cont HIV medications - Obtain prior T cell count and viral load - Apprec ID assistance #Uncontrolled type 2DM with renal complications - Cont PO DM meds per pt , declines insulin sliding scale Subjective Date patient seen: Aug 17, 2018 Time patient seen: 12:40 ROS Limited/Unobtainable: No Allergies: Coded Allergies: HEPARIN (Verified Allergy, Severe, low platelets, 06/11/14) SULFA (SULFONAMIDE ANTIBIOTICS) (Verified Allergy, Severe, nephro toxic, ) ACETAMINOPHEN (Verified Allergy, Unknown, 08/16/18) PREDNISONE (Verified Allergy, Unknown, 08/16/18) ZOLPIDEM (Verified Allergy, Unknown, 05/03/16) MEROPENEM (Verified Adverse Reaction, Intermediate, 04/01/16) Nausea and vomiting Uncoded Allergies: pork products (Allergy, Severe, rashes, 06/11/14) Subjective No acute overnight events, no new complaints. Seen and examined by podiatry, ID and Nephrology yesterday. No chest pain nor dyspnea, no fevers/chills Objective Last 24 Hour Vital Signs Date Time Temp Pulse Resp B/P (MAP) Pulse Ox O2 Delivery O2 Flow Rate FiO2 08/17/18 16:34 157/46 (83) 08/17/18 16:00 98.4 59 19 91/41 (58) 99 08/17/18 16:00 60 08/17/18 16:00 25 08/17/18 13:02 67 08/17/18 12:14 97.3 65 19 113/34 (60) 95 08/17/18 12:00 25 08/17/18 09:00 Room Air 08/17/18 08:08 98.7 59 18 100/31 (54) 98 08/17/18 08:00 61 08/17/18 08:00 25 08/17/18 05:10 66 16 100 Full Face 30 08/17/18 04:00 56 08/17/18 04:00 25 08/17/18 04:00 98.3 59 20 128/45 (72) 100 08/17/18 03:07 62 21 100 Full Face 30 08/17/18 01:07 58 18 100 Full Face 30 08/17/18 00:00 64 08/17/18 00:00 98.5 66 20 124/36 (65) 100 08/16/18 22:53 58 22 99 Full Face 30 08/16/18 21:28 62 22 96 Full Face 30 08/16/18 21:00 Room Air 08/16/18 20:00 98.9 68 20 104/29 (54) 98 08/16/18 20:00 25 08/16/18 20:00 63 08/16/18 17:30 76 18 98 Intake and Output 08/16/18 08/17/18 19:00 07:00 Intake Total 600 ml Output Total 0 ml Balance 600 ml 0 ml Intake Oral 600 ml Output Urine Total 0 ml # Bowel Movements 1 1 Laboratory Tests 08/17/18 04:20: White Blood Count 6.7, Red Blood Count 3.58L, Hemoglobin 9.7L, Hematocrit 31.1L , Mean Corpuscular Volume 87, Mean Corpuscular Hemoglobin 27.0, Mean Corpuscular Hemoglobin Concent 31.0L, Red Cell Distribution Width 18.0H, Platelet Count 357, Mean Platelet Volume 6.3L, Neutrophils (%) (Auto) 60.1, Lymphocytes (%) (Auto) 23.8, Monocytes (%) (Auto) 11.9H, Eosinophils (%) (Auto) 1.9, Basophils (%) (Auto) 2.3H, Sodium Level 140, Potassium Level 3.8, Chloride Level 101, Carbon Dioxide Level 31, Anion Gap 8, Blood Urea Nitrogen 43H, Creatinine 5.5H, Estimat Glomerular Filtration Rate 12.7, Glucose Level 136H, Hemoglobin A1c 7.5H, Calcium Level 8.9, Calcium (Send out) [Pending], Phosphorus Level 3.8, Magnesium Level 2.1, Triglycerides Level 62, Cholesterol Level 77, LDL Cholesterol 24, HDL Cholesterol 44, Cholesterol/HDL Ratio 1.8L, Parathyroid Hormone (Intact) [Pending], Random Gentamicin Level 3.7 08/17/18 09:00: Erythrocyte Sedimentation Rate 105H, C-Reactive Protein, Quantitative 5.8H Height (Feet): 5 Height (Inches): 6.00 Weight (Pounds): 150 Objective General: alert, cooperative, no distress, appears stated age Head: normocephalic, without obvious abnormality, atraumatic Eyes: conjunctivae/corneas clear. PERRL, EOM's intact Throat: lips, mucosa, and tongue normal. MMM Neck: supple, symmetrical, trachea midline, and no JVD Lungs: clear to auscultation bilaterally Heart: regular rate and rhythm, S1, S2 normal, no murmur, click, rub or gallop Abdomen: soft, non-tender, non-distended, bowel sounds normal; no masses or organomegaly Extremities: both extremities dressed, no surrounding erythema or warmth noted João Smart MD Aug 17, 2018 17:22
[2018-08-17] MEDS: Sensipar 30mg Tab ORAL SCH (17:27)
--- NOTE | 2018-08-17 19:15 | NUR ---
RESPIRATORY NOTE: PT RECEIVED IN STABLE CONDITION ON ROOM AIR. ALL VS ARE WNL. PT REQUESTED TO BE PLACED ON BIPAP AFTER DINNER AROUND THE 2300 HR. PT'S IS AT BEDSIDE. RN. MCGEE AWARE OF PT'S REQUEST. NO S/S OF RESPIRATORY DISTRESS NOTE AT THIS TIME. WILL CONTINUE TO MONITOR.
--- NOTE | 2018-08-17 19:26 | NUR ---
HAND-OFF: Report given to CHUY Schultz. Plan of care endorsed.
--- NOTE | 2018-08-17 21:14 | NUR ---
NURSE NOTES: Found previous dose of Aztreonam full at bedside. Gave 2100 dose. Will continue to monitor.
--- NOTE | 2018-08-17 22:34 | NUR ---
NURSE NOTES: Called and left a message with Dr. Lopez regarding continuing pts home meds as listed on paper in binder. Awaiting call back.
--- NOTE | 2018-08-17 23:13 | NUR ---
RESPIRATORY NOTE: PT PLACED ON BIPAP: 04/06, 28%, BACK UP RATE OF 12. ALARMS ON AND AUDIBLE. FACIAL INSPECTION REVEALED NO WOUNDS OR REDNESS. FOAM TAPE IN PLACE. MASK SECURELY PLACED. BIPAP CIRCUIT SECURE AND OUT OF THE WAY. BIPAP PLUGGED INTO RED OUTLET. NO S/S OF RESPIRATORY DISTRESS NOTED AT THIS TIME. WILL CONTINUE TO MONITOR.
[2018-08-18] VITALS (7 sets, daily range): BP systolic 93–150; BP diastolic 37–64
--- NOTE | 2018-08-18 00:29 | NUR ---
NURSE NOTES: Added extension cord and radio player to pts belongings list. Will continue to monitor.
--- NOTE | 2018-08-18 00:30 | NUR ---
NURSE NOTES: Report received from CHUY Schultz. Observed pt sleeping on bipap. Arousable by voice. No signs of sob noted. Denies any pain at this time. No acute distress noted at this time. SB on cardiac rn with HR of 54 noted. Will continue to monitor.
--- NOTE | 2018-08-18 03:48 | NUR ---
NURSE NOTES: Observed pt sleeping on the bed. Pt appears calm and comfortable. No signs of distress noted at this time. Will continue to monitor.
--- NOTE | 2018-08-18 04:00 | NUR ---
NURSE NOTES: When pt sleeping, HR went down to 49. Arousable by voice, no signs of aloc, denies any pain. Will continue to monitor.
--- NOTE | 2018-08-18 04:55 | NUR ---
RESPIRATORY NOTE: PT. REMAINED STABLE ON BIPAP WITH CURRENT SETTINGS. BIPAP MASK SECURE. CIRCUIT SECURE AND OUT OF THE WAY. FOAM TAPE IN PLACE, NO SKIN BREAKDOWN. NO S/S OF RESPIRATORY DISTRESS NOTED AT HIS TIME.
[2018-08-18] MEDS: Nateglinide 60mg tab ORAL SCH ×3 (06:12→16:55)
[2018-08-18] MEDS: oxyCODONE 5mg IR tab ORAL PRN ×2 (06:45→16:34)
--- NOTE | 2018-08-18 07:35 | NUR ---
HAND-OFF: Report given to CHUY Crooks.
--- NOTE | 2018-08-18 07:35 | NUR ---
NURSE NOTES: Received report from CHUY Santo. Pt is sitting up in bed having breakfast. No c/o pain. No signs of distress noted. Bed is in lowest position, side rails up X 2, and call light is within reach. IV RFA 20G intact and patent. Shunt in L upper arm. Pressure relieve mattress on. Pt on 2LPM via NC. Breathing even and unlabored. Will continue to plan of care.
--- NOTE | 2018-08-18 08:46 | NUR ---
NURSE NOTES: Dr. Olivo came and ordered Ranegel and ordered carried out.
--- NOTE | 2018-08-18 08:48 | Nephrology Progress Note ---
Assessment/Plan Assessment ASSESSMENT: 1. Sepsis and Gram-negative bacteremia. 2. Diabetic foot ulcer. 3. Osteomyelitis. 4. Hypertension. 5. End-stage renal disease. 6. Anemia of chronic kidney disease. 7. Renal osteodystrophy. Plan plan dialysis as schedule restart Renagel continue epogen continue IV antibiotic Subjective Subjective alert and awake no complaints spoke to his on phone regarding HD scheduling Objective Objective Last 24 Hour Vital Signs Date Time Temp Pulse Resp B/P (MAP) Pulse Ox O2 Delivery O2 Flow Rate FiO2 08/18/18 08:00 98.2 59 18 93/37 (55) 100 08/18/18 08:00 2.0 08/18/18 04:55 69 12 99 Full Face 28 08/18/18 04:00 98.2 50 18 143/43 (76) 100 08/18/18 04:00 28 08/18/18 04:00 47 08/18/18 02:30 58 23 98 Full Face 28 08/18/18 01:03 54 16 99 Full Face 28 08/18/18 00:00 52 08/18/18 00:00 97.0 53 16 138/39 (72) 100 08/17/18 23:13 52 14 99 Full Face 28 08/17/18 21:08 156/47 (83) 08/17/18 21:00 Room Air 08/17/18 20:59 53 16 97 08/17/18 20:39 98.3 55 19 172/84 (113) 98 08/17/18 20:00 57 08/17/18 20:00 25 08/17/18 19:15 60 16 95 08/17/18 16:34 157/46 (83) 08/17/18 16:00 98.4 59 19 91/41 (58) 99 08/17/18 16:00 60 08/17/18 16:00 25 08/17/18 13:02 67 08/17/18 12:14 97.3 65 19 113/34 (60) 95 08/17/18 12:00 25 08/17/18 09:00 Room Air Intake and Output 08/17/18 08/18/18 18:59 06:59 Intake Total 900 ml 100 ml Output Total 0 ml Balance 900 ml 100 ml Intake Oral 100 ml Other 900 ml Output Urine Total 0 ml # Bowel Movements 1 1 Laboratory Tests 08/17/18 09:00: Erythrocyte Sedimentation Rate 105H, C-Reactive Protein, Quantitative 5.8H 08/18/18 06:39: Random Vancomycin Level 26.0 Height (Feet): 5 Height (Inches): 6.00 Weight (Pounds): 150 Objective HEAD AND NECK: No JVP. No LAD. No thyromegaly. Extraocular movements intact. Pupils are reactive to light and accommodation. LUNGS: Clear to auscultation. CARDIAC: Regular rate and rhythm. S1 and S2 is normal. No rub. ABDOMEN: Soft, nontender, and nondistended. EXTREMITIES: Left upper extremity significantly swollen with Janis Olivo MD Aug 18, 2018 08:48
[2018-08-18] MEDS: Docusate 100mg cap ORAL SCH ×2 (09:00→21:00)
[2018-08-18] MEDS: Acyclovir 200mg Cap ORAL SCH (09:00)
[2018-08-18] MEDS: Metoprolol Succinate XL 25mg tab ORAL SCH (09:00)
[2018-08-18] MEDS: Aztreonam Inj 0.5 GM in NS 55 ML IVPB SCH ×2 (09:26→21:34)
--- NOTE | 2018-08-18 09:30 | NUR ---
NURSE NOTES: RN came in to patient's room to administer AM meds as scheduled at 9:30. Pt states "i refuse all meds until my says okay to take" and pt's calling and he transferred phone to RN. Pt.'s wanted RN to go over all AM meds one by one and told RN "Colace is supposed to take only lunch time. Plavix needs to be held until I come, Acyclovir supposed take 800mg QD AM with Breakfast instead of 200mg BID, why doctor did not order for Renal cap for supplement, All iv meds must be mixed with NS not to any dextrose solution. etc" RN was on the phone to review all meds with for 30mins and patient finally took only ASA 81mg EC and Tivicay 50mg. Per she will come and see her so Hemodialysis must be held until she comes. Will follow up with Dr. Smart about meds
[2018-08-18] MEDS: Dolutegravir Sodium 50mg tab ORAL SCH (09:45)
[2018-08-18] MEDS: Aspirin EC 81mg tab ORAL SCH ×3 (09:46→18:00)
--- NOTE | 2018-08-18 10:06 | NUR ---
CASE MANAGEMENT:REVIEW 08/17/18 SI: SEPSIS D/T BACTEREMIA RT FOOT INFECTED WOUND W/NECROSIS/GANGRENE 98.4 59 19 91/41 99% ON BIPAP H/H-9.7/31.1 BUN+43 CR+5.5 IS: IV AZACTAM Q12 IV FLAGYL Q8HRS PROCRIT SQ MWF HARRT REGIMEN ACYCLOVIR PO Q12 : TELEMETRY STATUS PLAN: PODIATRY CONSULT R/O OSTEO 08/18/18 SI: SEPSIS D/T BACTEREMIA RT FOOT INFECTED WOUND W/NECROSIS/GANGRENE 98.2 59 18 93/37 100% ON 2L/NC ...BIPAP @ NIGHT IS: IV AZACTAM Q12 IV FLAGYL Q8HRS PROCRIT SQ MWF HARRT REGIMEN ACYCLOVIR PO Q12 : TELEMETRY STATUS DCP: FROM HOME
--- NOTE | 2018-08-18 10:43 | General Progress Note ---
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 - Cont PO DM meds per pt , declines insulin sliding scale Subjective Date patient seen: Aug 18, 2018 Time patient seen: 08:45 Constitutional: Denies: chills, fever HEENT: Denies: eye pain, blurred vision Cardiovascular: Denies: chest pain, palpitations Respiratory: Denies: cough, orthopnea Gastrointestinal/Abdominal: Denies: abdomen distended, abdominal pain Neurologic/Psychiatric: Denies: anxiety, depressed Allergies: Coded Allergies: HEPARIN (Verified Allergy, Severe, low platelets, 06/11/14) SULFA (SULFONAMIDE ANTIBIOTICS) (Verified Allergy, Severe, nephro toxic, ) ACETAMINOPHEN (Verified Allergy, Unknown, 08/16/18) PREDNISONE (Verified Allergy, Unknown, 08/16/18) ZOLPIDEM (Verified Allergy, Unknown, 05/03/16) MEROPENEM (Verified Adverse Reaction, Intermediate, 04/01/16) Nausea and vomiting Uncoded Allergies: pork products (Allergy, Severe, rashes, 06/11/14) Subjective Medicine follow up for sepsis due to gram negative bacteremia, infected DFUs, uncontrolled DM. No new complaints today. Objective Last 24 Hour Vital Signs Date Time Temp Pulse Resp B/P (MAP) Pulse Ox O2 Delivery O2 Flow Rate FiO2 08/18/18 10:26 81 19 99 Full Face 28 08/18/18 09:00 59 93/37 08/18/18 09:00 Room Air 08/18/18 08:00 98.2 59 18 93/37 (55) 100 08/18/18 08:00 2.0 08/18/18 04:55 69 12 99 Full Face 28 08/18/18 04:00 98.2 50 18 143/43 (76) 100 08/18/18 04:00 28 4/22/19 04:00 47 08/18/18 02:30 58 23 98 Full Face 28 08/18/18 01:03 54 16 99 Full Face 28 08/18/18 00:00 52 08/18/18 00:00 97.0 53 16 138/39 (72) 100 08/17/18 23:13 52 14 99 Full Face 28 08/17/18 21:08 156/47 (83) 08/17/18 21:00 Room Air 08/17/18 20:59 53 16 97 08/17/18 20:39 98.3 55 19 172/84 (113) 98 08/17/18 20:00 57 08/17/18 20:00 25 08/17/18 19:15 60 16 95 08/17/18 16:34 157/46 (83) 08/17/18 16:00 98.4 59 19 91/41 (58) 99 08/17/18 16:00 60 08/17/18 16:00 25 08/17/18 13:02 67 08/17/18 12:14 97.3 65 19 113/34 (60) 95 08/17/18 12:00 25 Intake and Output 08/17/18 08/18/18 18:59 06:59 Intake Total 900 ml 100 ml Output Total 0 ml Balance 900 ml 100 ml Intake Oral 100 ml Other 900 ml Output Urine Total 0 ml # Bowel Movements 1 1 Laboratory Tests 08/18/18 06:39: Random Vancomycin Level 26.0 Height (Feet): 5 Height (Inches): 6.00 Weight (Pounds): 150 General Appearance: no apparent distress, alert EENT: TMs normal Neck: normal alignment, supple, normal inspection Cardiovascular: normal peripheral pulses, normal rate, regular rhythm Respiratory/Chest: chest wall non-tender, lungs clear, normal breath sounds Abdomen: non tender, soft, no organomegaly Extremities: non-tender, no calf tenderness Mello Matt MD Aug 18, 2018 10:43
--- NOTE | 2018-08-18 11:13 | Diagnostic Imaging Report ---
APPROVED REPORT CPT Code: 06541 Present Symptoms Comments: Pain Ulcers BILATERAL: Imaging reveals a patent deep venous system bilaterally. There is no evidence of thrombus within the common femoral, superficial femoral, popliteal or tibial segments. The greater saphenous veins are within normal limits. Doppler indicates normal spontaneous flow within these segments.
--- NOTE | 2018-08-18 13:30 | NUR ---
*-* INSURANCE *-* ALL CLINICALS AND REVIEWS HAVE BEEN FAXED TO: DALI RIDDLE: MARLENI P:[phone] F:[phone] REF# [id number]
[2018-08-18] MEDS ORDERED: Sensipar 30mg Tab ORAL SCH (14:30)
--- NOTE | 2018-08-18 15:19 | Infectious Diseases Prog Note ---
Assessment/Plan Assessment/Plan A) 1) right foot infected wound/ulcer with necrosis/dry gangrene and ? osteomyelitis, elevated sed rate noted 2) gram neg bacteremia from outside labs, ID pending 3) right leg and left foot wounds, left arm swelling, left arm with fistula, no cellulitis 4) hiv, esrd, hd, anemia, cva, sz, weakness, dm, htn, anemia, tia, hep c, hubert , bipap 5) allergies - meropenem/sulfa, others noted, sh-neg, fh-nc, mar noted, records noted 6) d/w RN and P) 1) vancomycin, aztreonam, flagyl and gentamicin pendng final cultures 2) f/u on blood cultures at [place] and outside lab, final outside lab results pending 3) check wc, monitor labs, check x-rays, consider MRI right foot but will defer to podiatry 4) podiatry f/u noted - no surgical intervention at this time 5) will likely need mohel antibiotics - 6 weeks, antibiotic regimen will be determined by cultures 6) d/w Dr. Servin and will get vascular surgery evaluation for left arm swelling and foot/leg vascular surgery work-up 7) continue anti-retroviral treatment, patient to f/u with Dr. Chinchilla as outpatient for HIV management Subjective Constitutional: Denies: fever HEENT: Denies: congestion Respiratory: Denies: shortness of breath Cardiovascular: Denies: chest pain Gastrointestinal/Abdominal: Denies: nausea, vomiting Genitourinary: Denies: dysuria Neurologic: Denies: headache Skin: Denies: rash Musculoskeletal: Reports: pain - controlled Allergies: Coded Allergies: HEPARIN (Verified Allergy, Severe, low platelets, 06/11/14) SULFA (SULFONAMIDE ANTIBIOTICS) (Verified Allergy, Severe, nephro toxic, ) ACETAMINOPHEN (Verified Allergy, Unknown, 08/16/18) PREDNISONE (Verified Allergy, Unknown, 08/16/18) ZOLPIDEM (Verified Allergy, Unknown, 05/03/16) MEROPENEM (Verified Adverse Reaction, Intermediate, 04/01/16) Nausea and vomiting Uncoded Allergies: pork products (Allergy, Severe, rashes, 06/11/14) Objective Vital Signs Last 24 Hour Vital Signs Date Time Temp Pulse Resp B/P (MAP) Pulse Ox O2 Delivery O2 Flow Rate FiO2 08/18/18 14:21 97.0 51 23 133/41 (71) 100 08/18/18 13:17 56 19 99 Full Face 28 08/18/18 12:00 28 08/18/18 12:00 52 08/18/18 10:57 79 18 99 Full Face 28 08/18/18 10:26 81 19 99 Full Face 28 08/18/18 09:00 59 93/37 08/18/18 09:00 Room Air 08/18/18 08:00 56 08/18/18 08:00 98.2 59 18 93/37 (55) 100 08/18/18 08:00 2.0 08/18/18 04:55 69 12 99 Full Face 28 08/18/18 04:00 98.2 50 18 143/43 (76) 100 08/18/18 04:00 28 08/18/18 04:00 47 08/18/18 02:30 58 23 98 Full Face 28 08/18/18 01:03 54 16 99 Full Face 28 08/18/18 00:00 52 08/18/18 00:00 97.0 53 16 138/39 (72) 100 08/17/18 23:13 52 14 99 Full Face 28 08/17/18 21:08 156/47 (83) 08/17/18 21:00 Room Air 08/17/18 20:59 53 16 97 08/17/18 20:39 98.3 55 19 172/84 (113) 98 08/17/18 20:00 57 08/17/18 20:00 25 08/17/18 19:15 60 16 95 08/17/18 16:34 157/46 (83) 08/17/18 16:00 98.4 59 19 91/41 (58) 99 08/17/18 16:00 60 08/17/18 16:00 25 Height (Feet): 5 Height (Inches): 6.00 Weight (Pounds): 150 General Appearance: no acute distress HEENT: normocephalic, atraumatic, anicteric, mucous membranes moist Respiratory/Chest: lungs clear, normal breath sounds, no respiratory distress, no accessory muscle use Cardiovascular: normal rate, regular rhythm, no gallop/murmur, no JVD Abdomen: normal bowel sounds, soft, non tender, no organomegaly, non distended Genitourinary: other - no agarwal, no cva pain Extremities: other - right foot covered and patient will not let me examine unless approves, right foot computer images noted and reviewed Skin: no rash Neurologic/Psychiatric: visual coordinator II-XII grossly normal, alert, oriented x 3, responsive Lymphatic: no neck adenopathy Musculoskeletal: no effusion Objective COMPARISON: 11/10/16 Chest x-ray - FINDINGS: Lungs: Probable mild atelectasis of the lung bases, left greater than right. Pleural space: No definite plain film evidence for pneumothorax. Heart: Unremarkable. No cardiomegaly. Mediastinum: Unremarkable. Bones/joints: Degenerative changes of the thoracic spine. Soft tissues: Clips are projected in the left axillary region. Upper abdomen: Mild elevation of the left hemidiaphragm. IMPRESSION: Probable mild atelectasis of the lung bases, left greater than right. x-ray - foot - pending Microbiology Date/Time Source Procedure Growth Status 08/16/18 00:10 Blood Blood Culture - Preliminary NO GROWTH AFTER 48 HOURS Resulted 08/15/18 23:45 Blood Blood Culture - Preliminary NO GROWTH AFTER 48 HOURS Resulted 08/16/18 01:00 Nasal Nares MRSA Culture - Final NO METHICILLIN RESISTANT STAPH AUREUS... Complete 08/16/18 01:00 Rectum - Final NO CARBAPENEM-RESISTANT ENTEROBACTERI... Complete 08/16/18 01:00 Rectum VRE Culture - Final NO VANCOMYCIN RESISTANT ENTEROCOCCUS ... Complete Labs Test 08/15/18 23:45 08/17/18 04:20 08/17/18 09:00 08/18/18 06:39 White Blood Count 6.8 K/UL (4.8-10.8) 6.7 K/UL (4.8-10.8) Red Blood Count 3.72 M/UL (4.70-6.10) 3.58 M/UL (4.70-6.10) Hemoglobin 10.0 G/DL (14.2-18.0) 9.7 G/DL (14.2-18.0) Hematocrit 32.1 % (42.0-52.0) 31.1 % (42.0-52.0) Mean Corpuscular Volume 86 FL (80-99) 87 FL (80-99) Mean Corpuscular Hemoglobin 26.9 PG (27.0-31.0) 27.0 PG (27.0-31.0) Mean Corpuscular Hemoglobin Concent 31.2 G/DL (32.0-36.0) 31.0 G/DL (32.0-36.0) Red Cell Distribution Width 18.5 % (11.6-14.8) 18.0 % (11.6-14.8) Platelet Count 353 K/UL (150-450) 357 K/UL (150-450) Mean Platelet Volume 6.2 FL (6.5-10.1) 6.3 FL (6.5-10.1) Neutrophils (%) (Auto) 57.3 % (45.0-75.0) 60.1 % (45.0-75.0) Lymphocytes (%) (Auto) 27.4 % (20.0-45.0) 23.8 % (20.0-45.0) Monocytes (%) (Auto) 12.2 % (1.0-10.0) 11.9 % (1.0-10.0) Eosinophils (%) (Auto) 2.2 % (0.0-3.0) 1.9 % (0.0-3.0) Basophils (%) (Auto) 0.9 % (0.0-2.0) 2.3 % (0.0-2.0) Erythrocyte Sedimentation Rate 111 MM/HR (0-20) 105 MM/HR (0-20) Prothrombin Time 12.1 SEC (9.30-11.50) Prothromb Time International Ratio 1.2 (0.9-1.1) Activated Partial Thromboplast Time 36 SEC (23-33) Sodium Level 137 MMOL/L (136-145) 140 MMOL/L (136-145) Potassium Level 3.9 MMOL/L (3.5-5.1) 3.8 MMOL/L (3.5-5.1) Chloride Level 99 MMOL/L (98-107) 101 MMOL/L (98-107) Carbon Dioxide Level 31 MMOL/L (21-32) 31 MMOL/L (21-32) Anion Gap 7 mmol/L (5-15) 8 mmol/L (5-15) Blood Urea Nitrogen 45 mg/dL (7-18) 43 mg/dL (7-18) Creatinine 6.0 MG/DL (0.55-1.30) 5.5 MG/DL (0.55-1.30) Estimat Glomerular Filtration Rate 11.5 mL/min (>60) 12.7 mL/min (>60) Glucose Level 203 MG/DL (74-106) 136 MG/DL (74-106) Lactic Acid Level 1.30 mmol/L (0.4-2.0) Calcium Level 9.4 MG/DL (8.5-10.1) 8.9 MG/DL (8.5-10.1) Magnesium Level 2.3 MG/DL (1.8-2.4) 2.1 MG/DL (1.8-2.4) Total Bilirubin 0.4 MG/DL (0.2-1.0) Aspartate Amino Transf (AST/SGOT) 40 U/L (15-37) Alanine Aminotransferase (ALT/SGPT) 35 U/L (12-78) Alkaline Phosphatase 181 U/L (46-116) Total Creatine Kinase 70 U/L (26-308) Troponin I 0.055 ng/mL (0.000-0.056) C-Reactive Protein, Quantitative 7.4 mg/dL (0.00-0.90) 5.8 mg/dL (0.00-0.90) Pro-B-Type Natriuretic Peptide 8605 pg/mL (0-125) Total Protein 8.5 G/DL (6.4-8.2) Albumin 2.5 G/DL (3.4-5.0) Globulin 6.0 g/dL Albumin/Globulin Ratio 0.4 (1.0-2.7) Hemoglobin A1c 7.5 % (4.3-6.0) Phosphorus Level 3.8 MG/DL (2.5-4.9) Triglycerides Level 62 MG/DL (30-150) Cholesterol Level 77 MG/DL (< 200) LDL Cholesterol 24 mg/dL (<100) HDL Cholesterol 44 MG/DL (40-60) Cholesterol/HDL Ratio 1.8 (3.3-4.4) Random Gentamicin Level 3.7 ug/mL Random Vancomycin Level 26.0 ug/mL Laboratory Tests Test 08/18/18 06:39 Random Vancomycin Level 26.0 ug/mL Current Medications Medications (Trade) Dose Ordered Sig/Zohaib Route PRN Reason Start Time Stop Time Status Last Admin Dose Admin Acyclovir (Zovirax) 200 mg Q12HR ORAL 08/16/18 21:00 09/15/18 20:59 Acyclovir (Zovirax) 400 mg DAILYPRN PRN ORAL Give post HD on HD days 08/16/18 21:00 09/15/18 20:59 Al Hydroxide/Mg Hydroxide (Mylanta II) 30 ml Q6H PRN ORAL dyspepsia 08/16/18 03:30 09/15/18 03:29 Aspirin (Ecotrin) 81 mg DAILY ORAL 08/16/18 09:00 09/15/18 08:59 08/18/18 09:46 Aztreonam 0.5 gm/ Sodium Chloride 55 ml @ 110 mls/hr Q12HR IVPB 08/17/18 09:00 08/24/18 08:59 08/18/18 09:26 Bisacodyl (Dulcolax) 10 mg HSPRN PRN RECTAL Constipation 08/16/18 03:30 09/15/18 03:29 Cinacalcet (Sensipar) 30 mg Q24HRS ORAL 08/16/18 18:00 09/15/18 08:59 08/17/18 17:27 Clonidine HCl (Catapres Tab) 0.1 mg Q8H PRN ORAL SBP >160 08/16/18 09:45 09/15/18 09:44 Clopidogrel Bisulfate (Plavix) 75 mg DAILY ORAL 08/17/18 09:00 09/16/18 08:59 Dextrose (Dextrose 50%) 25 ml Q30M PRN IV Hypoglycemia 08/16/18 03:30 09/15/18 03:29 Dextrose (Dextrose 50%) 50 ml Q30M PRN IV Hypoglycemia 08/16/18 03:30 09/15/18 03:29 Diphenhydramine HCl (Benadryl) 25 mg Q6H PRN ORAL Itching/Pruritis 08/16/18 03:30 09/15/18 03:29 Docusate Sodium (Colace) 100 mg EVERY 12 HOURS ORAL 08/16/18 09:00 09/15/18 08:59 08/16/18 09:20 Dolutegravir Sodium (Tivicay) 50 mg DAILY ORAL 08/17/18 09:00 09/16/18 08:59 08/18/18 09:45 Epoetin Jeremiah (Epoetin Jeremiah(ESRD on dialysis)) 8,000 unit SAT-SAT-SAT SUBQ 08/18/18 21:00 09/17/18 20:59 Gentamicin Protocol (Gentamicin pharmacy to dose) 1 ea DAILY PRN MISC Per rx protocol 08/16/18 14:15 09/15/18 14:14 Gentamicin Sulfate 80 mg/ Sodium Chloride 112 ml @ 112 mls/hr ONCE IVPB 08/18/18 20:00 08/18/18 22:00 Hydromorphone HCl (Dilaudid) 0.5 mg Q6H PRN IVP breakthrough 08/16/18 03:30 08/23/18 03:29 Lorazepam (Ativan) 1 mg Q4H PRN ORAL For Anxiety 08/16/18 03:30 08/23/18 03:29 Magnesium Hydroxide (Mom) 30 ml HSPRN PRN ORAL Constipation 08/16/18 03:30 09/15/18 03:29 Metoprolol Succinate (Toprol XL) 25 mg DAILY ORAL 08/16/18 09:00 09/15/18 08:59 Metronidazole 100 ml @ 100 mls/hr Q8HR IVPB 08/16/18 22:00 08/23/18 21:59 08/18/18 06:12 Nateglinide (Starlix) 60 mg TID@0630,1130,1630 ORAL 08/16/18 06:30 09/15/18 06:29 08/18/18 11:49 Nitroglycerin (Ntg) 0.4 mg Q5M X 3 DOSES PRN SL Prn Chest Pain 08/16/18 03:30 09/15/18 03:29 Ondansetron HCl (Zofran) 4 mg Q6H PRN IVP Nausea & Vomiting 08/16/18 03:30 09/15/18 03:29 Oxycodone HCl (Roxicodone) 5 mg Q4H PRN ORAL For Pain 08/16/18 03:45 08/23/18 03:44 08/18/18 06:45 Sevelamer Carbonate (Renvela) 4,000 mg TID@0730,1200,1700 ORAL 08/18/18 12:00 09/17/18 08:59 08/18/18 11:49 Temazepam (Restoril) 15 mg BEDTIME ORAL 08/16/18 21:00 08/23/18 20:59 Vancomycin HCl (Vanco rx to dose) 1 ea DAILY PRN MISC Per rx protocol 08/16/18 14:15 09/15/18 14:14 Yesenia Conway MD Aug 18, 2018 15:19
[2018-08-18] MEDS: Sensipar 30mg Tab ORAL SCH ×2 (17:40→18:00)
[2018-08-18] MEDS: Calcitriol 0.25mcg Cap ORAL SCH (17:43)
--- NOTE | 2018-08-18 19:11 | NUR ---
RESPIRATORY NOTE:Received pt on current bipap settings. Pt is resting comfortably with full facial mask. Pt refuse to put tape on face. No signs of skin breakdown or redness. Will cont. to monitor pt status.
--- NOTE | 2018-08-18 19:35 | NUR ---
HAND-OFF: Report given to maylin VERA. Pt remains stable..
--- NOTE | 2018-08-18 19:36 | NUR ---
NURSE NOTES: Got report from Min RN. Pt in stable condition. Denies any pain. Non s/s of distress or discomfort noted. Pt resting in bed comfortably. Bed in low and locked position, call light within reach, bedside table within reach. Continue to monitor.
[2018-08-18] MEDS ORDERED: Gentamicin inj 80 MG in NS 110 ML IVPB SCH (20:00)
[2018-08-18] MEDS ORDERED: Epoetin Alfa-EPBX(ESRD on dialysis)4000 units/ml vial SUBQ SCH (21:00)
[2018-08-18] MEDS: metroNIDAZOLE 500mg tab ORAL SCH (21:39)
[2018-08-19 00:07] VITALS: BP 109/35
[2018-08-19] MEDS: oxyCODONE 5mg IR tab ORAL PRN ×3 (01:05→16:11)
[2018-08-19 04:20] VITALS: BP 144/35
[2018-08-19] MEDS: metroNIDAZOLE 500mg tab ORAL SCH (06:16)
[2018-08-19] MEDS: Nateglinide 60mg tab ORAL SCH ×3 (06:16→16:49)
[2018-08-19 07:19] LABS: BASOPHILS % (AUTO) 1.3 % (0.0-2.0); EOSINOPHILS % (AUTO) 2.6 % (0.0-3.0); HEMATOCRIT 30.1 % (42.0-52.0); HEMOGLOBIN 9.5 G/DL (14.2-18.0); LYMPHOCYTES % (AUTO) 27.1 % (20.0-45.0); MEAN CORPUSCULAR VOLUME 86 FL (80-99); MONOCYTES % (AUTO) 11.4 % (1.0-10.0); NEUTROPHILS % (AUTO) 57.7 % (45.0-75.0); PLATELET COUNT 339 K/UL (150-450); RED BLOOD COUNT 3.52 M/UL (4.70-6.10); RED CELL DISTRIBUTION WIDTH 18.7 % (11.6-14.8); WHITE BLOOD COUNT 7.1 K/UL (4.8-10.8)
--- NOTE | 2018-08-19 07:35 | NUR ---
HAND-OFF: Report given to Kimberley/Martina VERA. Endorsed plan of care.
--- NOTE | 2018-08-19 07:36 | NUR ---
NURSE NOTES: Received shift report from CHUY [place]. The patient is on the bed without acute distress or shortness of breath. The patient's bed is in the lowest position, call light in reach, and fall precaution reinforced. Will continue plan of care.
[2018-08-19 08:00] VITALS: BP 144/44
[2018-08-19] MEDS ORDERED: Acyclovir 200mg Cap ORAL SCH (08:00)
[2018-08-19 08:09] LABS: ALANINE AMINOTRANSFERASE 33 U/L (12-78); ALBUMIN 2.3 G/DL (3.4-5.0); ALBUMIN/GLOBULIN RATIO 0.4 (1.0-2.7); ALKALINE PHOSPHATASE 176 U/L (46-116); ANION GAP 6 mmol/L (5-15); ASPARTATE AMINO TRANSFERASE 48 U/L (15-37); BILIRUBIN,TOTAL 0.3 MG/DL (0.2-1.0); BLOOD UREA NITROGEN 58 mg/dL (7-18); CALCIUM 8.9 MG/DL (8.5-10.1); CARBON DIOXIDE 31 MMOL/L (21-32); CHLORIDE 99 MMOL/L (98-107); CREATININE 6.5 MG/DL (0.55-1.30); POTASSIUM 4.2 MMOL/L (3.5-5.1); SODIUM 136 MMOL/L (136-145)
[2018-08-19] MEDS: Aztreonam Inj 0.5 GM in NS 55 ML IVPB SCH (08:48)
[2018-08-19] MEDS: Dolutegravir Sodium 50mg tab ORAL SCH (08:54)
[2018-08-19] MEDS ORDERED: Nephrovite tab (Rena-Vite) ORAL SCH (09:00)
[2018-08-19] MEDS ORDERED: Vitamin D 1000 IU Tab ORAL SCH (09:00)
[2018-08-19] MEDS ORDERED: Lactobacillus-GG tablet ORAL SCH (09:00)
[2018-08-19] MEDS ORDERED: Metoprolol Succinate XL 25mg tab ORAL SCH (09:00)
[2018-08-19] MEDS: Calcitriol 0.25mcg Cap ORAL SCH (09:21)
[2018-08-19] MEDS: Aspirin EC 81mg tab ORAL SCH ×2 (09:23→18:02)
--- NOTE | 2018-08-19 09:25 | General Progress Note ---
Progress Note Progress Note Patient seen and examined Left arm 2+ av shunt with edema ESRD on HD DM HTN Hep C HIV Calcific PAD with foot wound necrosis 2+ femorals absent pop pedal pulses Patient refusing wound dressing change Rec Hd via av shunt Will need left arm fistulogram and leg angiogram--can be done as outpatient Patient has his own vascular surgeon at the [facility] and can follow up with him Marcos Dang MD Aug 19, 2018 09:25
--- NOTE | 2018-08-19 09:41 | NUR ---
CASE MANAGEMENT:REVIEW 08/19/18 SI: SEPSIS D/T BACTEREMIA AND FOOT WOUND 97.5 69 18 144/44 94% ON CONTINUOUS BIPAP H/H-9.5/30.1 BUN+58 CR+6.5 IS: IV AZACTAM Q12HRS FLAGYL PO Q8HRS ACYCLOVIR PO QD PLAVIX PO QD TOPROL XL PO QD LACTOBACILLUS PO QD ASA PO BID HAART REGIMEN : TELEMETRY STATUS
--- NOTE | 2018-08-19 10:10 | NUR ---
NURSE NOTES: Communicated with Dr. Evans and the patient at the bedside about the discharge plan. The patient's spouse was notified by Dr. Evans about the discharge plan via phone call while the patient is next to Dr. Evans. Per patient spouse, she can come later tonight. Will continue plan of care and follow up discharge order.
--- NOTE | 2018-08-19 10:14 | Discharge Summary ---
Discharge Summary Hospital Course Date of Admission Aug 16, 2018 at 00:15 Date of Discharge 08/19/18 Admitting Diagnosis Bacteremia HPI Lloyd Grigsby is a 63 year old male who was admitted on Aug 16, 2018 at 00:15 for Bacteremia Hospital Course #Sepsis due to Gram neg aron bacteremia #Diabetic foot ulcer s/p multiple dbridements #Right foot infected wound/ulcer with necrosis/gangrene andosteomyelitis - Seen by podiatry, no acute surgical intervention recommended at this time - Continue IV antibiotics as outpatient as arranged by ID, cleared for discharge - blood cultures here negative #ESRD on HD #Anemia due to ESRD #MIld asymptomatic hypotension - Apprec Nephrology consult - HD per Renal - Seen by Vascular Surgery, recommends outpatient fistulogram and LE angio, discussed recommendations with his #HIV - Cont ART - Apprec ID assistance #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
--- NOTE | 2018-08-19 11:35 | NUR ---
*-* INSURANCE *-* ALL CLINICALS AND REVIEWS HAVE BEEN FAXED TO: DALI ALEJANDRO: MARLENI P:[phone] F:[phone] REF# [id number] Addendum: 08/19/18 at 1136 by JESSICA SOLARES CM DISCHARGE SUMMARY FAXED.
[2018-08-19 12:00] VITALS: BP 110/37
[2018-08-19] MEDS ORDERED: Docusate 100mg cap ORAL SCH (13:00)
--- NOTE | 2018-08-19 13:07 | NUR ---
RD ASSESSMENT & RECOMMENDATIONS SEE CARE ACTIVITY FOR COMPLETE ASSESSMENT DAILY ESTIMATED NEEDS: Needs based on ESRD on HD + wound healing, 58kg 30-35 kcals/kg 6662-3803 total kcals 1.25-1.8 g protein/kg 72-104 g total protein 20-22 mL/kg 2901-5518 total fluid mLs NUTRITION DIAGNOSIS: 1) Increased KCAL and protein needs R/T renal dysfunction and wound healing as evidenced by pt w/ ESRD on HD, w/ infected diabetic foot ulcers, s/p recent debridement and amputation of rt toes. CURRENT DIET:RENAL PO DIET RECOMMENDATIONS: RENAL, CCHO MED, DOUBLE PROTEIN PORTIONS ADDITIONAL RECOMMENDATIONS: - Wound healing: add MOISE BID + Nephrovite 1 tab QD + ZnSO4 220mg QD x 10 days - CALIBRATED bedscale wt post HD - Monitor BGs closely -> rec accucheck w/ SSI - Vit C as per renal MD
--- NOTE | 2018-08-19 13:57 | NUR ---
PT NOTE Attempted to see patient x2 for PT treatment. Earlier the patient was on full facial mask. Currently the patient's brother is visiting the patient, and the patient is requesting that the therapist return tomorrow. Patient's request respected, Fe extension service specialist in charge notified, will re-attempt tomorrow per patient request.
[2018-08-19 16:00] VITALS: BP 160/44
[2018-08-19] MEDS: Sensipar 30mg Tab ORAL SCH (18:03)
--- NOTE | 2018-08-19 19:07 | NUR ---
HAND-OFF: Report given to CHUY Parrish. Informed CHUY Parrish that his spouse will be here around 1900 to 2000 for discharge. The patient denies of acute distress or shortness of breath. The bed was in the lowest position, call light in reach, and fall precaution reinforced. Endorsed plan of care.
--- NOTE | 2018-08-19 19:10 | NUR ---
NURSE NOTES: NURSE NOTES: Received report from Wendy Adams RN. Patient in bed AAO X4 with HOB elevated at semi fowlers with no complaint of acute pain or distress at this time. Kept clean, dry and comfortable in bed. IV line intact and patent with safety precaution in place; siderails X3 up, call light within reach, bed in lowest position, breaks and alarm on at all times. Needs and wants anticipated and attended. Will continue plan of care and monitor for any changes noted. Patient prepped to be D/C now. Belongings checklist reviewed, awaiting for to come and chicken picker.
--- NOTE | 2018-08-19 19:31 | NUR ---
RESPIRATORY NOTE: Received pt on RA. Pt alert/awake, follows commands. Pt refuses to wear BiPAP at this time, denies SOB/chest pain. Vitals stable on RA. Pt is getting ready to get discharged, RN at bedside. BiPAP on standby in the room, plugged into red outlet. Pt in no apparent distress, will continue plan of care.
[2018-08-19 20:00] VITALS: BP 150/54
[2018-08-19] MEDS ORDERED: Tubing IV Secondary IV ONE (20:04)
[2018-08-19] MEDS ORDERED: NS 275ml ONE (20:04)
--- NOTE | 2018-08-19 20:05 | NUR ---
NURSE NOTES: Patient D/C off unit, belongings checklist and D/C papers signed by (POA)
--- NOTE | 2018-08-21 01:15 | Consultation ---
DATE OF CONSULTATION: 08/19/2018 VASCULAR SURGERY CONSULTATION CONSULTING PHYSICIAN: Marcos Dang M.D. REFERRING PHYSICIAN: João More MD REASON FOR EVALUATION: Foot necrosis and left arm AV shunt evaluation. HISTORY OF PRESENT ILLNESS: This is a 63-year-old male who is on hemodialysis through a left arm AV shunt. He has a history of hepatitis C, HIV, calcific arterial occlusive disease, and bilateral foot necrosis and amputation. The patient has seen multiple other physicians and is being followed by a vascular surgeon in the [place] for his vascular care. The patient is now at [facility] for possible sepsis and bacteremia. The patient's repeat blood cultures were negative. He has been on antibiotics per ID service. Vascular Surgery is consulted for further evaluation. The patient currently has no complaint. He is refusing foot examination and dressing changes. He had dialysis through the left arm AV shunt without difficulty. PAST MEDICAL HISTORY: As above. History of end-stage renal failure, on hemodialysis; HIV; hypertension, hepatitis C, diabetes mellitus, left arm AV shunt placed by the physician, calcific lower extremity arterial occlusive disease, foot and toe amputation, wound necrosis, and history of heparin-induced thrombocytopenia. MEDICATIONS: See attached MAR. ALLERGIES: Multiple. Tylenol, heparin, meropenem, prednisone, sulfa, and zolpidem. SOCIAL HISTORY: Denies any history of smoking, drugs, or alcohol abuse. FAMILY HISTORY: Unremarkable. SYSTEM REVIEW: Unobtainable due to altered mental status. PHYSICAL EXAMINATION: VITAL SIGNS: The patient is awake, but somewhat confused. Afebrile at 97, heart rate 88, blood pressure 150/60, and respiratory rate 16. The patient has a palpable left upper arm AV shunt thrill. There is mild edema. Skin is clear, dry, and intact. LUNGS: Clear to auscultation. HEART: Regular rate and rhythm. ABDOMEN: Soft and nontender. EXTREMITIES: He has palpable femoral pulses. Intact popliteal pedal Doppler's bilaterally. Foot is dressed. He would not allow nurses or us to change the dressing of the foot to evaluate the foot wounds. IMPRESSION: 1. Patent left upper arm AV shunt with mild edema, rule outoutflow venous occlusion or stenosis. 2. End-stage renal failure, on hemodialysis. 3. Calcific lower extremity arterial occlusive disease with bilateral foot wounds and ulceration. Declining examination and dressing changes. 4. Multiple risk factors with hepatitis C, human immunodeficiency virus, heparin-induced thrombocytopenia. PLAN: Continue dialysis through the left arm AV shunt. The patient will need left arm fistulogram as well as lower extremity angiography to assess for revascularization. This can be done as an outpatient. The patient has a vascular surgeon at the [place] and can follow up with him. The above was discussed al length with the patient and patient's nurse. Marcos Dang M.D. DR: RENETTA JOB#: [id number] CC: Marcos Dang M.D.; Fax#: [phone] JOÃO MORE M.D. ; FAX#: [phone] MTDD
--- NOTE | 2018-08-22 16:07 | Cardiology Report ---
APPROVED REPORT EKG Measurement Heart [id number] Normal sinus rhythm Left axis deviation Incomplete right bundle branch block Voltage criteria for left ventricular hypertrophy Cannot rule out Septal infarct, age undetermined Abnormal ECG
== END 2018-08-19 20:05 | disposition home or self-care (01) | DRG 974 ==
LOC: EMR 23:38 → 2E 08-16 00:15 → EDBEDREQ 08-16 01:14 → 2E 08-17 06:49
PROC: 5A1D70Z Performance of Urinary Filtration, Intermittent, Less than 6 Hours Per Day (ICD-10-PCS; principal; 2018-08-16)
DX: A41.50 Gram-negative sepsis, unspecified (principal); N18.6 End stage renal disease; B20 Human immunodeficiency virus [HIV] disease; I96 Gangrene, not elsewhere classified; L97.819 Non-pressure chronic ulcer of other part of right lower leg with unspecified severity; M86.8X7 Other osteomyelitis, ankle and foot; I12.0 Hypertensive chronic kidney disease with stage 5 chronic kidney disease or end stage renal disease; E11.621 Type 2 diabetes mellitus with foot ulcer; E11.22 Type 2 diabetes mellitus with diabetic chronic kidney disease; E11.65 Type 2 diabetes mellitus with hyperglycemia; Z99.2 Dependence on renal dialysis; D63.1 Anemia in chronic kidney disease; I95.9 Hypotension, unspecified; Z88.6 Allergy status to analgesic agent; Z88.2 Allergy status to sulfonamides; Z88.8 Allergy status to other drugs, medicaments and biological substances; I73.9 Peripheral vascular disease, unspecified; Z89.432 Acquired absence of left foot; Z86.73 Personal history of transient ischemic attack (TIA), and cerebral infarction without residual deficits; R56.9 Unspecified convulsions; B19.20 Unspecified viral hepatitis C without hepatic coma; G47.33 Obstructive sleep apnea (adult) (pediatric); N25.0 Renal osteodystrophy
CPT/HCPCS: 36415; 71045; 80048; 80053; 80061; 80170; 80202; 82550; 82962; 83036; 83605; 83735; 83880; 83970; 84100; 84484; 85025; 85610; 85651; 85730; 86140; 86850; 86900; 86901; 87040; 87070; 87081; 87181; 87205; 93005; 93970; 94660; 99285